=== PATIENT | female | born 1950 | race Caucasian/White ===

== ENCOUNTER 2016-11-11 05:42 | Outpatient (CLI) | payer MEDICARE, MEDICAID ==
[~2016-11-11] VITALS: Ht 162.6 cm; Wt 60.3 kg
[~2016-11-11 05:42] MED LIST: AC325T PO; ALBU17AE3 IH; ALDACTONE25 MG PO; AMLO10TA82 PO; ASP81TEC PO; BSC10SU PR; BUDE10.2 IH; BUDE6HFA IH; BUDE6HFA INH; FURO10VI IV; HEPA500016 SC; IPRA3AMP IH; IPRA3AMP19 IH; KCL10CCR PO; LORA1TAB IV; MAGN-47 PO; MENT3.5O TP; METF500T4 PO; METH40VI2 IV; MICO1POW2 MC; MICO45CR71 VG; MNTL10T PO; MONT10TA21 PO; MORP4CAR IV; MTP25TSR PO; MULT-305 PO; ONDA2VIA IV; ONDN4T PO; PNT40TEC PO; PRAV20TA3 PO; SPRN25T PO; SUCR1TAB PO; TIOT18CA2 IH; ZAFI20TA6 PO; [UNRECOGNIZED DRUG - CODE] IV; [UNRECOGNIZED DRUG - CODE] IV; [UNRECOGNIZED DRUG - OTHER] IH
== END 2016-11-11 11:30 ==
LOC: PREOP 05:42
PROVIDERS: ATTEND Surgery
DX: Z01.818 Encounter for other preprocedural examination (principal); R19.5 Other fecal abnormalities

== ENCOUNTER 2016-11-14 06:44 | Day surgery (SDC) | payer MEDICARE, MEDICAID ==
[~2016-11-14] VITALS: Ht 162.6 cm; Wt 60.3 kg
--- OUTSIDE RECORDS SUMMARY | 2016-11-14 06:49 | XMS REPORT ---
Author Author ELLEN DISLA Organization eClinicalWorks Address Unknown Phone Unavailable Care Team Providers Care Melter Assistant Name Role Phone ELLEN DISLA CP Unavailable Allergies No Known Allergies Problems Problem Type Condition Code Onset Dates Condition Status Problem Diaphragmatic hernia without mention of obstruction or gangrene 553.3 Active Problem Loss of weight 783.21 Active Problem Unspecified senile cataract 366.10 Active Problem CAD (coronary artery disease) I25.10 Active Problem DM w/o complication type II E11.9 Active Problem Other and unspecified hyperlipidemia E78.5 Active Problem Asthma 493.90 Active Problem Essential hypertension, benign 401.1 Active Problem Chronic airway obstruction, 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 Active Problem GERD (gastroesophageal reflux disease) 530.81 Active Medications No Known Medications Results No Known Results Summary Purpose eClinicalWorks Submission
--- OUTSIDE RECORDS SUMMARY | 2016-11-14 06:49 | XMS REPORT ---
Author Author ELLEN DISLA Organization eClinical[employer] Address Unknown Phone Unavailable Care Team Providers Care Building Operator Name Role Phone ELLEN DISLA CP Unavailable Allergies No Known Allergies Problems Problem Type Condition ICD-9 Code Onset Dates Condition Status Problem Diaphragmatic hernia without mention of obstruction or gangrene 553.3 Active Problem Unspecified senile cataract 366.10 Active Problem Chest pain, unspecified 786.50 Active Problem Pure hypercholesterolemia 272.0 Active Problem GERD (gastroesophageal reflux disease) 530.81 Active Problem Asthma 493.90 Active Problem Vertigo 780.4 Active Problem Essential hypertension, benign 401.1 Active Problem Loss of weight 783.21 Active Problem COPD (chronic obstructive pulmonary disease) 496 Active Problem Diabetes 250.00 Active Medications Medication Code System Code Instructions Start Date End Date Status Dosage Accolate [facility] [address]-51 20 MG Orally Twice a day Jan 30, 2015 1 tablet Metformin HCl [facility] [address]-35 500 MG Orally Twice a day October 19, 2014 1 tablet with meals Results No Known Results Summary Purpose eClinicalWorks Submission
--- OUTSIDE RECORDS SUMMARY | 2016-11-14 06:49 | XMS REPORT ---
Author Author ELLEN DISLA [facility] eClinicalWorks Address Unknown Phone Unavailable Care Team Providers Care Sausage Canner Name Role Phone ELLEN DISLA CP Unavailable Allergies, Adverse Reactions, Alerts Substance Reaction Event Type Bactrim hives Drug Allergy Problems Problem Type Condition Code Onset Dates Condition Status Problem Unspecified senile cataract 366.10 Active Problem Essential hypertension, benign 401.1 Active Problem Loss of weight 783.21 Active Problem Chronic airway obstruction, 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 Active Problem Vertigo 780.4 Active Problem DM w/o complication type II E11.9 Active Problem COPD (chronic obstructive pulmonary disease) 496 Active Problem Diabetes 250.00 Active Problem GERD (gastroesophageal reflux disease) 530.81 Active Problem Asthma 493.90 Active Assessment Bronchitis J40 Active Problem Pure hypercholesterolemia 272.0 Active Problem Diaphragmatic hernia without mention of obstruction or gangrene 553.3 Active Problem Chest pain, unspecified 786.50 Active Medications Medication Code System Code Instructions Start Date End Date Status Dosage OneTouch Ultra Test NDC 0 Test Strips 2 times a day DX: E11.9 October 10, 2014 as directed Benzonatate [facility] [address]-42 100 MG Orally Three times a day May 10, 2015 1 capsule as needed Albuterol Sulfate [facility] [address]-41 (2.5 MG/3ML) 0.083% Inhalation Three times a day 3 ml Spiriva HandiHaler [facility] [address]-41 18 MCG Inhalation Once a day 1 capsule Symbicort [facility] [address]-26 160-4.5 MCG/ACT Inhalation Twice a day 2 puffs PredniSONE [facility] [address]-58 10 MG Orally 2 per day May 10, 2015 May 15, 2015 1 tablet with food or milk Meclizine HCl [facility] [address]-41 25 MG Orally 3 times a day December 06, 2014 1 tablet as needed for dizziness Accolate [facility] [address]-41 20 MG Orally Twice a day Jan 30, 2015 1 tablet ProAir HFA [facility] [address]-39 108 (90 Base) MCG/ACT Inhalation every 4 hrs Jan 04, 2015 2 puffs as needed Zithromax Z-Apolinar [facility] [address]-09 250 MG Orally Once a day May 10, 2015 May 15, 2015 2 tab d 1 then 1 tab qd Metformin HCl [facility] [address]-43 500 MG Orally Twice a day October 19, 2014 1 tablet with meals Carafate [facility] [address]-21 1 GM Orally Twice a day 1 tablet on an empty stomach Aldactone [facility] [address]-37 25 MG Orally Twice a day 1 tablet Omeprazole [facility] [address]-45 40 MG Orally Once a day October 20, 2014 1 capsule Polyethylene Glycol [address] [facility] [address]-27 ... Orally Once a day Apr 10, 2015 dissolve 17 gm of powder in 8 oz H2O Procedures Procedure Coding System Code Date Office Visit, Est Pt., Level 3 CPT-4 98606 May 10, 2015 [facility] VISIT ESTABLISHED PATIENT CPT-4 G0467 May 10, 2015 Vital Signs Date/Time: May 10, 2015 Temperature 98.1 F Weight 142.6 lbs Height 66 in BMI 23.01 Index Blood Pressure Diastolic 70 mmHg Blood Pressure Systolic 114 mmHg Cardiac Monitoring Heart Rate 76 bpm Results No Known Results Summary Purpose eClinicalWorks Submission
--- OUTSIDE RECORDS SUMMARY | 2016-11-14 06:49 | XMS REPORT ---
Author Author ELLEN DISLA Organization eClinicalWorks Address Unknown Phone Unavailable Care Team Providers Care Enrollment Services Vice President Name Role Phone ELLEN DISLA CP Unavailable [...] Instructions Start Date End Date Status Dosage Spiriva HandiHaler [facility] [address]-82 18 MCG Inhalation Once a day 1 capsule Aldactone [facility] [address]-18 25 MG Orally Twice a day 1 tablet Metformin HCl [facility] [address]-82 500 MG Orally Twice a day October 19, 2014 1 tablet with meals Accolate [facility] [address]-45 20 MG Orally Twice a day Jan 30, 2015 1 tablet ProAir HFA [facility] [address]-25 108 (90 Base) MCG/ACT Inhalation every 4 hrs Jan 04, 2015 2 puffs as needed Omeprazole [facility] [address]-56 40 MG Orally Once a day October 20, 2014 1 capsule Meloxicam [facility] [address]-63 15 MG Orally Once a day May 23, 2015 1 tablet Results No Known Results Summary Purpose eClinicalWorks Submission
--- OUTSIDE RECORDS SUMMARY | 2016-11-14 06:49 | XMS REPORT ---
Author Author ELLEN DISLA [facility] eClinicalWorks Address Unknown Phone Unavailable Care Team Providers Care Senior Product Integrity Engineer Name Role Phone ELLEN DISLA CP Unavailable Allergies, Adverse Reactions, Alerts Substance Reaction Event Type Bactrim hives Drug Allergy Problems Problem Type Condition Code Onset Dates Condition Status Problem Essential hypertension, benign 401.1 Active Problem COPD (chronic obstructive pulmonary disease) 496 Active Problem Diabetes 250.00 Active Problem CAD (coronary artery disease) I25.10 Active Problem DM w/o complication type II E11.9 Active Problem Other and unspecified hyperlipidemia E78.5 Active Problem GERD (gastroesophageal reflux disease) 530.81 Active Problem Asthma 493.90 Active Problem Chronic airway obstruction, 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 Active Problem Vertigo 780.4 Active Assessment DM w/o complication type II E11.9 Active Problem Diaphragmatic hernia without mention of obstruction or gangrene 553.3 Active Problem Chest pain, unspecified 786.50 Active Assessment Chronic airway obstruction, 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 Active Problem Unspecified senile cataract 366.10 Active Problem Pure hypercholesterolemia 272.0 Active Problem Loss of weight 783.21 Active Medications Medication Code System Code Instructions Start Date End Date Status Dosage Benzonatate [facility] [address]-25 100 MG Orally Three times a day May 10, 2015 1 capsule as needed Accolate [facility] [address]-36 20 MG Orally Twice a day Jan 30, 2015 1 tablet Meloxicam [facility] [address]-66 15 MG Orally Once a day May 23, 2015 1 tablet Polyethylene Glycol 3350 [facility] [address]-18 ... Orally Once a day Apr 10, 2015 dissolve 17 gm of powder in 8 oz H2O Albuterol Sulfate [facility] [address]-73 (2.5 MG/3ML) 0.083% Inhalation Three times a day 3 ml Omeprazole [facility] [address]-64 40 MG Orally Once a day October 20, 2014 1 capsule Pravastatin Sodium [facility] [address]-29 20 MG Orally Once a day 1 tablet Spiriva HandiHaler [facility] [address]-29 18 MCG Inhalation Once a day August 1 capsule Symbicort [facility] [address]-00 160-4.5 MCG/ACT Inhalation Twice a day 2 puffs OneTouch Ultra Test ND 0 Test Strips 2 times a day DX: E11.9 October 10, 2014 as directed Meclizine HCl [facility] [address]-04 25 MG Orally 3 times a day December 06, 2014 1 tablet as needed for dizziness Metformin HCl [facility] [address]-19 1000 MG Orally Once a day August 23, 2015 1 tablet with am meal Aldactone [facility] [address]-45 25 MG Orally Twice a day 1 tablet Metformin HCl [facility] [address]-00 500 MG Orally Once a day October 19, 2014 1 1/2 tablets in pm Carafate [facility] [address]-24 1 GM Orally Twice a day 1 tablet on an empty stomach Ventolin HFA [facility] [address]-41 108 (90 Base) MCG/ACT Inhalation every 4 hrs May 23, 2015 2 puffs as needed Procedures Procedure Coding System Code Date Office Visit, Est Pt., Level 3 CPT-4 24558 August 23, 2015 [facility] VISIT ESTABLISHED PATIENT CPT-4 G0467 August 23, 2015 Vital Signs Date/Time: August 23, 2015 Temperature 97.0 F Weight 143.8 lbs Height 66 in BMI 23.21 Index Blood Pressure Diastolic 70 mmHg Blood Pressure Systolic 126 mmHg Cardiac Monitoring Heart Rate 81 bpm Results No Known Results Summary Purpose eClinicalWorks Submission
--- OUTSIDE RECORDS SUMMARY | 2016-11-14 06:49 | XMS REPORT ---
Author Author ELLEN DISLA Organization eClinicalWorks Address Unknown Phone Unavailable Care Team Providers Care Finger Cobbler Name Role Phone ELLEN DISLA CP Unavailable [...] 530.81 Active Problem Asthma 493.90 Active Problem Pure hypercholesterolemia 272.0 Active Problem Diaphragmatic hernia without mention of obstruction or gangrene 553.3 Active Problem Chest pain, unspecified 786.50 Active Medications Medication Code System Code Instructions Start Date End Date Status Dosage Polyethylene Glycol 3350 [facility] [address]-54 ... Orally Once a day Apr 10, 2015 dissolve 17 gm of powder in 8 oz H2O Results No Known Results Summary Purpose eClinicalWorks Submission
--- OUTSIDE RECORDS SUMMARY | 2016-11-14 06:50 | XMS REPORT ---
Author Author ELLEN DISLA Organization eClinicalWorks Address Unknown Phone Unavailable Care Team Providers Care Joint Filler Name Role Phone ELLEN DISLA CP Unavailable [...]
--- OUTSIDE RECORDS SUMMARY | 2016-11-14 06:50 | XMS REPORT ---
Author Author ELLEN DISLA [facility] eClinicalWorks Address Unknown Phone Unavailable Care Team Providers Care Regional Business Development Manager Name Role Phone ELLEN DISLA CP Unavailable [...] 530.81 Active Problem Asthma 493.90 Active Assessment Hematoma T14.8 Active Problem Pure hypercholesterolemia 272.0 Active Problem Diaphragmatic hernia without mention of obstruction or gangrene 553.3 Active Problem Chest pain, unspecified 786.50 Active Medications Medication Code System Code Instructions Start Date End Date Status Dosage Accolate [facility] [address]-07 20 MG Orally Twice a day Jan 30, 2015 1 tablet OneTouch Ultra Test NDC 0 Test Strips 2 times a day DX: E11.9 October 10, 2014 as directed Albuterol Sulfate [facility] [address]-18 (2.5 MG/3ML) 0.083% Inhalation Three times a day 3 ml Incruse Ellipta [facility] [address]-18 62.5 MCG/INH Inhalation Once a day May 1 puff Omeprazole [facility] [address]-35 40 MG Orally Once a day October 20, 2014 1 capsule Meclizine HCl [facility] [address]-98 25 MG Orally 3 times a day December 06, 2014 1 tablet as needed for dizziness Polyethylene Glycol 3350 [facility] [address]-25 ... Orally Once a day Apr 10, 2015 dissolve 17 gm of powder in 8 oz H2O Ventolin HFA [facility] [address]-59 108 (90 Base) MCG/ACT Inhalation every 4 hrs May 23, 2015 2 puffs as needed Meloxicam [facility] [address]-05 15 MG Orally Once a day May 23, 2015 1 tablet Benzonatate [facility] [address]-33 100 MG Orally Three times a day May 10, 2015 1 capsule as needed Carafate [facility] [address]-16 1 GM Orally Twice a day 1 tablet on an empty stomach Metformin HCl [facility] [address]-04 500 MG Orally Twice a day October 19, 2014 1 tablet with meals Aldactone [facility] [address]-15 25 MG Orally Twice a day 1 tablet Symbicort [facility] [address]-13 160-4.5 MCG/ACT Inhalation Twice a day 2 puffs Procedures Procedure Coding System Code Date Office Visit, Est Pt., Level 3 CPT-4 19528 May 25, 2015 [facility] VISIT ESTABLISHED PATIENT CPT-4 G0467 May 25, 2015 Vital Signs Date/Time: May 25, 2015 Temperature 98.2 F Weight 144.4 lbs Height 66 in BMI 23.30 Index Blood Pressure Diastolic 76 mmHg Blood Pressure Systolic 110 mmHg Cardiac Monitoring Heart Rate 86 bpm Results No Known Results Summary Purpose eClinicalWorks Submission
--- OUTSIDE RECORDS SUMMARY | 2016-11-14 06:50 | XMS REPORT ---
Author Author ELLEN DISLA Organization eClinicalWorks Address Unknown Phone Unavailable Care Team Providers Care Corsage Maker Name Role Phone ELLEN DISLA CP Unavailable [...] Date End Date Status Dosage Spiriva HandiHaler [facility] [address]-79 18 MCG Inhalation Once a day 1 capsule Results No Known Results Summary Purpose eClinicalWorks Submission
--- OUTSIDE RECORDS SUMMARY | 2016-11-14 06:50 | XMS REPORT ---
Author Author ELLEN DISLA Organization eClinicalWorks Address Unknown Phone Unavailable Care Team Providers Care Photography Editor Name Role Phone ELLEN DISLA CP Unavailable [...] DX: E11.9 October 10, 2014 as directed Results No Known Results Summary Purpose eClinicalWorks Submission
--- OUTSIDE RECORDS SUMMARY | 2016-11-14 06:50 | XMS REPORT ---
Author Author ELLEN DISLA Organization eClinicalWorks Address Unknown Phone Unavailable Care Team Providers Care Hims Clerk Name Role Phone ELLEN DISLA CP Unavailable Allergies No Known Allergies Problems Problem Type Condition Code Onset Dates Condition Status Problem Diaphragmatic hernia without mention of obstruction or gangrene 553.3 Active Problem Loss of weight 783.21 Active Problem Unspecified senile cataract 366.10 Active Assessment DM w/o complication type II E11.9 Active Problem CAD (coronary artery disease) I25.10 Active Problem DM w/o complication type II E11.9 Active Problem Other and unspecified hyperlipidemia E78.5 Active Problem Asthma 493.90 Active Problem Essential hypertension, benign 401.1 Active Problem Chronic airway obstruction, 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 Active Problem GERD (gastroesophageal reflux disease) 530.81 Active Medications Medication Code System Code Instructions Start Date End Date Status Dosage Metformin HCl [facility] [address]-97 500 MG Orally twice a day October 19, 2014 2 tabs in AM and 1 1/2 tablets in pm Results No Known Results Summary Purpose eClinicalWorks Submission
--- OUTSIDE RECORDS SUMMARY | 2016-11-14 06:50 | XMS REPORT ---
Author Author ELLEN DISLA Organization eClinicalWorks Address Unknown Phone Unavailable Care Team Providers Care Project Reservoir Engineer Name Role Phone ELLEN DISLA CP [...] 496 Active Problem Diabetes 250.00 Active Medications No Known Medications Results No Known Results Summary Purpose eClinicalWorks Submission
--- OUTSIDE RECORDS SUMMARY | 2016-11-14 06:50 | XMS REPORT ---
Author Author ELLEN DISLA Organization eClinicalWorks Address Unknown Phone Unavailable Care Team Providers Care Bobbin Presser Name Role Phone ELLEN DISLA CP Unavailable [...] Instructions Start Date End Date Status Dosage Omeprazole [facility] [address]-14 40 MG Orally Once a day October 20, 2014 1 capsule ProAir HFA [facility] [address]-62 108 (90 Base) MCG/ACT Inhalation every 4 hrs Jan 04, 2015 2 puffs as needed Aldactone [facility] [address]-21 25 MG Orally Twice a day 1 tablet Results No Known Results Summary Purpose eClinicalWorks Submission
--- OUTSIDE RECORDS SUMMARY | 2016-11-14 06:50 | XMS REPORT ---
Author Author ELLEN DISLA Organization eClinicalWorks Address Unknown Phone Unavailable Care Team Providers Care Ic Engineer Name Role Phone ELLEN DISLA CP [...] Instructions Start Date End Date Status Dosage ProAir HFA [facility] [address]-67 108 (90 Base) MCG/ACT Inhalation every 4 hrs Jan 04, 2015 2 puffs as needed Results No Known Results Summary Purpose eClinicalWorks Submission
--- OUTSIDE RECORDS SUMMARY | 2016-11-14 06:50 | XMS REPORT ---
Author Author ELLEN DISLA Organization eClinicalWorks Address Unknown Phone Unavailable Care Team Providers Care Seat Coverer Name Role Phone ELLEN DISLA CP Unavailable [...] Instructions Start Date End Date Status Dosage Meloxicam [facility] [address]-70 15 MG Orally Once a day October 18, 2014 1 tablet Results No Known Results Summary Purpose eClinicalWorks Submission
--- OUTSIDE RECORDS SUMMARY | 2016-11-14 06:50 | XMS REPORT ---
Author Author ELLEN DISLA [facility] eClinicalWorks Address Unknown Phone Unavailable Care Team Providers Care Personal Trainer Name Role Phone ELLEN DISLA CP Unavailable [...] 530.81 Active Problem Asthma 493.90 Active Assessment SOB (shortness of breath) R06.02 Active Problem Pure hypercholesterolemia 272.0 Active Problem Diaphragmatic hernia without mention of obstruction or gangrene 553.3 Active Problem Chest pain, unspecified 786.50 Active Medications Medication Code System Code Instructions Start Date End Date Status Dosage Meclizine HCl [facility] [address]-86 25 MG Orally 3 times a day December 06, 2014 1 tablet as needed for dizziness Aldactone [facility] [address]-68 25 MG Orally Twice a day [address] [facility] [address]-89 160-4.5 MCG/ACT Inhalation Twice a day 2 puffs [address] HFA [facility] [address]-05 108 (90 Base) MCG/ACT Inhalation every 4 hrs Jan 04, 2015 2 puffs as needed Omeprazole [facility] [address]-07 40 MG Orally Once a day October 20, [address] [facility] [address]-50 20 MG Orally Twice a day Jan 30, 2015 1 tablet Spiriva HandiHaler [facility] [address]-56 18 MCG Inhalation Once a day 1 capsule Albuterol Sulfate [facility] [address]-22 (2.5 MG/3ML) 0.083% Inhalation Three times a day [address] [facility] [address]-75 1 GM Orally Twice a day 1 tablet on an empty stomach Metformin HCl [facility] [address]-09 500 MG Orally Twice a day October 19, 2014 1 tablet with meals OneTouch Ultra Test ND 0 Test Strips 2 times a day October 10, 2014 as directed Procedures Procedure Coding System Code Date Office Visit, Est Pt., Level 3 CPT-4 09016 Mar 14, 2015 Vital Signs Date/Time: Mar 14, 2015 Temperature 98.1 F Weight 144.2 lbs Height 66 in BMI 23.27 Index Blood Pressure Diastolic 72 mmHg Blood Pressure Systolic 124 mmHg Cardiac Monitoring Heart Rate 92 bpm Results No Known Results Summary Purpose eClinicalWorks Submission
--- OUTSIDE RECORDS SUMMARY | 2016-11-14 06:51 | XMS REPORT ---
Author Author ELLEN DISLA [facility] eClinicalWorks Address Unknown Phone Unavailable Care Team Providers Care Perfect Bind Machine Operator Name Role Phone ELLEN DISLA CP [...] 530.81 Active Problem Asthma 493.90 Active Assessment Urinary tract infection, site not specified N39.0 Active Problem Pure hypercholesterolemia 272.0 Active Problem Diaphragmatic hernia without mention of obstruction or gangrene 553.3 Active Assessment Hematuria, unspecified R31.9 Active Problem Chest pain, unspecified 786.50 Active Medications Medication Code System Code Instructions Start Date End Date Status Dosage Aldactone [facility] [address]-82 25 MG Orally Twice a day 1 tablet Accolate [facility] [address]-99 20 MG Orally Twice a day Jan 30, 2015 1 tablet ProAir HFA [facility] [address]-14 108 (90 Base) MCG/ACT Inhalation every 4 hrs Jan 04, 2015 2 puffs as needed Carafate [facility] [address]-74 1 GM Orally Twice a day 1 tablet on an empty stomach Spiriva HandiHaler [facility] [address]-02 18 MCG Inhalation Once a day 1 capsule Meclizine HCl [facility] [address]-98 25 MG Orally 3 times a day December 06, 2014 1 tablet as needed for dizziness Albuterol Sulfate [facility] [address]-00 (2.5 MG/3ML) 0.083% Inhalation Three times a day 3 ml Metformin HCl [facility] [address]-42 500 MG Orally Twice a day October 19, 2014 1 tablet with meals OneTouch Ultra Test [facility] 0 Test Strips 2 times a day October 10, 2014 as directed Cipro [facility] [address]-82 500 MG Orally Twice a day Feb 27, 2015 Mar 04, 2015 1 tablet Symbicort [facility] [address]-88 160-4.5 MCG/ACT Inhalation Twice a day 2 puffs Omeprazole [facility] [address]-18 40 MG Orally Once a day October 20, 2014 1 capsule Procedures Procedure Coding System Code Date URINALYSIS, AUTO, W/O SCOPE CPT-4 79521 Feb 27, 2015 Office Visit, Est Pt., Level 3 CPT-4 34344 Feb 27, 2015 Vital Signs Date/Time: Feb 27, 2015 Temperature 96.4 F Weight 146.5 lbs Height 66 in BMI 23.64 Index Blood Pressure Diastolic 80 mmHg Blood Pressure Systolic 130 mmHg Cardiac Monitoring Heart Rate 99 bpm Results Name Result Date Reference Range Unit Abnormality Flag UA LONG DIP (IN HOUSE) Summary Purpose eClinicalWorks Submission
--- OUTSIDE RECORDS SUMMARY | 2016-11-14 06:51 | XMS REPORT ---
Author Author ELLEN DISLA Organization eClinicalWorks Address Unknown Phone Unavailable Care Team Providers Care Architectural Designer Name Role Phone ELLEN DISLA CP Unavailable [...]
--- OUTSIDE RECORDS SUMMARY | 2016-11-14 06:51 | XMS REPORT ---
Author Author ELLEN DISLA [facility] eClinicalWorks Address Unknown Phone Unavailable Care Team Providers Care Certified Medical Assistant Name Role Phone ELLEN DISLA CP [...] 530.81 Active Problem Asthma 493.90 Active Assessment DM w/o complication type II E11.9 Active Problem Pure hypercholesterolemia 272.0 Active Assessment Chronic airway obstruction, 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 Active Problem Diaphragmatic hernia without mention of obstruction or gangrene 553.3 Active Assessment Encounter for immunization Z23 Active Problem Chest pain, unspecified 786.50 Active Medications Medication Code System Code Instructions Start Date End Date Status Dosage Metformin HCl [facility] [address]-33 500 MG Orally Twice a day October 19, 2014 1 tablet with meals Aldactone [facility] [address]-91 25 MG Orally Twice a day 1 tablet Carafate [facility] [address]-92 1 GM Orally Twice a day 1 tablet on an empty stomach Omeprazole [facility] [address]-63 40 MG Orally Once a day October 20, 2014 1 capsule ProAir HFA [facility] [address]-70 108 (90 Base) MCG/ACT Inhalation every 4 hrs Jan 04, 2015 2 puffs as needed Spiriva HandiHaler [facility] [address]-12 18 MCG Inhalation Once a day 1 capsule Meclizine HCl [facility] [address]-30 25 MG Orally 3 times a day December 06, 2014 1 tablet as needed for dizziness Albuterol Sulfate [facility] [address]-88 (2.5 MG/3ML) 0.083% Inhalation Three times a day 3 ml OneTouch Ultra Test [facility] 0 Test Strips 2 times a day October 10, 2014 as directed Accolate [facility] [address]-69 20 MG Orally Twice a day Jan 30, 2015 1 tablet Symbicort [facility] [address]-83 160-4.5 MCG/ACT Inhalation Twice a day 2 puffs Procedures Procedure Coding System Code Date GLYCATED HEMOGLOBIN TEST CPT-4 44552 Feb 09, 2015 FLUARIX QUAD (3 & UP)-GSK-2014 CPT-4 17913 Feb 09, 2015 Office Visit, Est Pt., Level 3 CPT-4 33318 Feb 09, 2015 SINGLE IMMUNIZATION ADMIN CPT-4 12563 Feb 09, 2015 Vital Signs Date/Time: Feb 09, 2015 Temperature 97.4 F Weight 147.0 lbs Height 66 in BMI 23.72 Index Blood Pressure Diastolic 72 mmHg Blood Pressure Systolic 120 mmHg Cardiac Monitoring Heart Rate 75 bpm Results Name Result Date Reference Range Unit Abnormality Flag A1C (IN HOUSE) Immunizations Vaccine Administration Date FLUARIX QUAD (3 & UP)-GSK-2014Feb 09, 2015 Summary Purpose eClinicalWorks Submission
--- OUTSIDE RECORDS SUMMARY | 2016-11-14 06:51 | XMS REPORT ---
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 Role Phone ELLEN DISLA CP Unavailable Allergies No Known Allergies Problems Problem Type Condition Code Onset Dates Condition Status Problem Diaphragmatic hernia without mention of obstruction or gangrene 553.3 Active Problem Loss of weight 783.21 Active Problem Unspecified senile cataract 366.10 Active Assessment Chronic airway obstruction, 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 Active Problem CAD (coronary artery disease) I25.10 Active Problem DM w/o complication type II E11.9 Active Problem Other and unspecified hyperlipidemia E78.5 Active Problem Asthma 493.90 Active Problem Essential hypertension, benign 401.1 Active Problem Chronic airway obstruction, 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 Active Problem GERD (gastroesophageal reflux disease) 530.81 Active Medications Medication Code System Code Instructions Start Date End Date Status Dosage Metformin HCl [facility] [address]-11 500 MG Orally twice a day October 19, 2014 2 tabs in AM and 1 1/2 tablets in pm Results No Known Results Summary Purpose eClinicalWorks Submission
--- OUTSIDE RECORDS SUMMARY | 2016-11-14 06:51 | XMS REPORT ---
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
--- OUTSIDE RECORDS SUMMARY | 2016-11-14 06:52 | XMS REPORT | Continuity of Care Document ---
Author Author Formerly [facility] Address Unknown Phone Unavailable Allergies Active Description Code Type Severity Reaction Onset Reported/Identified Relationship to Patient Clinical Status Yes sulfADIAZINE Drug Allergy 10/18/2009 Yes sulfADIAZINE Drug Allergy N/A N/A 10/18/2009 Yes Sulfa (Sulfonamide Antibiotics) [id number] Drug Allergy Moderate N/A 07/28/2012 Medications Problems Date Dx Coded Attending Type Code Diagnosis Diagnosed By 08/16/2009 477.9 ALLERGIC RHINITIS, CAUSE UNSPECIFIED 08/16/2009 493.92 ASTHMA, UNSPECIFIED, WITH (ACUTE) EXACERBATION 08/16/2009 ELLEN DISLA APRN 477.9 ALLERGIC RHINITIS, CAUSE UNSPECIFIED 08/16/2009 ELLEN DISLA APRN 493.92 ASTHMA, UNSPECIFIED, WITH (ACUTE) EXACERBATION 08/16/2009 477.9 ALLERGIC RHINITIS, CAUSE UNSPECIFIED 08/16/2009 493.92 ASTHMA, UNSPECIFIED, WITH (ACUTE) EXACERBATION 08/16/2009 477.9 ALLERGIC RHINITIS, CAUSE UNSPECIFIED 08/16/2009 493.92 ASTHMA, UNSPECIFIED, WITH (ACUTE) EXACERBATION 08/16/2009 477.9 ALLERGIC RHINITIS, CAUSE UNSPECIFIED 08/16/2009 493.92 ASTHMA, UNSPECIFIED, WITH (ACUTE) EXACERBATION 08/16/2009 477.9 ALLERGIC RHINITIS, CAUSE UNSPECIFIED 08/16/2009 493.92 ASTHMA, UNSPECIFIED, WITH (ACUTE) EXACERBATION 08/16/2009 477.9 ALLERGIC RHINITIS, CAUSE UNSPECIFIED 08/16/2009 493.92 ASTHMA, UNSPECIFIED, WITH (ACUTE) EXACERBATION 08/16/2009 ELLEN DISLA APRN 477.9 ALLERGIC RHINITIS, CAUSE UNSPECIFIED 08/16/2009 ELLEN DISLA APRN 493.92 ASTHMA, UNSPECIFIED, WITH (ACUTE) EXACERBATION 08/16/2009 TOSHIA POPE DO 477.9 ALLERGIC RHINITIS, CAUSE UNSPECIFIED 08/16/2009 POPE DO, TOSHIA K 493.92 ASTHMA, UNSPECIFIED, WITH (ACUTE) EXACERBATION 08/16/2009 POPE DO, TSOHIA K 477.9 ALLERGIC RHINITIS, CAUSE UNSPECIFIED 08/16/2009 POPE DO, TOSHIA K 493.92 ASTHMA, UNSPECIFIED, WITH (ACUTE) EXACERBATION 08/16/2009 POPE DO, TOSHIA K 477.9 ALLERGIC RHINITIS, CAUSE UNSPECIFIED 08/16/2009 POPE DO, TOSHIA K 493.92 ASTHMA, UNSPECIFIED, WITH (ACUTE) EXACERBATION 08/16/2009 POPE DO, TOSHIA K 477.9 ALLERGIC RHINITIS, CAUSE UNSPECIFIED 08/16/2009 POPE DO, TOSHIA K 493.92 ASTHMA, UNSPECIFIED, WITH (ACUTE) EXACERBATION 08/16/2009 DISLA SHELTERED 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 DIRECTOR, ELLEN R 477.9 ALLERGIC RHINITIS, CAUSE UNSPECIFIED 08/16/2009 DISLA SHELTERED 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 DIRECTOR, ELLEN R 493.92 ASTHMA, UNSPECIFIED, WITH (ACUTE) EXACERBATION 08/16/2009 POPE DO, TOSHIA K 477.9 ALLERGIC RHINITIS, CAUSE UNSPECIFIED 08/16/2009 POPE DO, TOSHIA K 493.92 ASTHMA, UNSPECIFIED, WITH (ACUTE) EXACERBATION 08/16/2009 POPE DO, TOSHIA K 477.9 ALLERGIC RHINITIS, CAUSE UNSPECIFIED 08/16/2009 POPE DO, TOSHIA K 493.92 ASTHMA, UNSPECIFIED, WITH (ACUTE) EXACERBATION 08/16/2009 POPE DO, TOSHIA K 477.9 ALLERGIC RHINITIS, CAUSE UNSPECIFIED 08/16/2009 POPE DO, TOSHIA K 493.92 ASTHMA, UNSPECIFIED, WITH (ACUTE) EXACERBATION 08/16/2009 POPE DO, TOSHIA K 477.9 ALLERGIC RHINITIS, CAUSE UNSPECIFIED 08/16/2009 POPE DO, TOSHIA K 493.92 ASTHMA, UNSPECIFIED, WITH (ACUTE) EXACERBATION 08/16/2009 DISLA SHELTERED 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 DIRECTOR ELLEN R 477.9 ALLERGIC RHINITIS, CAUSE UNSPECIFIED 08/16/2009 DISLA SHELTERED 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 DIRECTOR, ELLEN R 493.92 ASTHMA, UNSPECIFIED, WITH (ACUTE) EXACERBATION 08/16/2009 DISLA SHELTERED 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 DIRECTOR, ELLEN R 477.9 ALLERGIC RHINITIS, CAUSE UNSPECIFIED 08/16/2009 DISLA SHELTERED 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 DIRECTOR ELLEN R 493.92 ASTHMA, UNSPECIFIED, WITH (ACUTE) EXACERBATION 08/16/2009 DISLA SHELTERED 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 DIRECTOR, ELLEN R 477.9 ALLERGIC RHINITIS, CAUSE UNSPECIFIED 08/16/2009 ELLEN DISLA APRN 493.92 ASTHMA, UNSPECIFIED, WITH (ACUTE) EXACERBATION 08/16/2009 TOSHIA POPE DO 477.9 ALLERGIC RHINITIS, CAUSE UNSPECIFIED 08/16/2009 TOSHIA POPE DO K 493.92 ASTHMA, UNSPECIFIED, WITH (ACUTE) EXACERBATION 10/18/2009 536.8 DYSPEPSIA AND OTHER SPECIFIED DISORDERS OF FUNCTION OF STOMACH 10/18/2009 ELLEN DISLA APRN 536.8 DYSPEPSIA AND OTHER SPECIFIED DISORDERS OF FUNCTION OF STOMACH 10/18/2009 536.8 DYSPEPSIA AND OTHER SPECIFIED DISORDERS OF FUNCTION OF STOMACH 10/18/2009 536.8 DYSPEPSIA AND OTHER SPECIFIED DISORDERS OF FUNCTION OF STOMACH 10/18/2009 536.8 DYSPEPSIA AND OTHER SPECIFIED DISORDERS OF FUNCTION OF STOMACH 10/18/2009 536.8 DYSPEPSIA AND OTHER SPECIFIED DISORDERS OF FUNCTION OF STOMACH 10/18/2009 536.8 DYSPEPSIA AND OTHER SPECIFIED DISORDERS OF FUNCTION OF STOMACH 10/18/2009 ELLEN DISLA APRN 536.8 DYSPEPSIA AND OTHER SPECIFIED DISORDERS OF FUNCTION OF STOMACH 10/18/2009 TOSHIA DOLESLEYA K 536.8 DYSPEPSIA AND OTHER SPECIFIED DISORDERS OF FUNCTION OF STOMACH 10/18/2009 TOSHIA DOLESLEYA K 536.8 DYSPEPSIA AND OTHER SPECIFIED DISORDERS OF FUNCTION OF STOMACH 10/18/2009 POPE DO TOSHIA K 536.8 DYSPEPSIA AND OTHER SPECIFIED DISORDERS OF FUNCTION OF STOMACH 10/18/2009 POPE DO TOSHIA K 536.8 DYSPEPSIA AND OTHER SPECIFIED DISORDERS OF FUNCTION OF STOMACH 10/18/2009 ELLEN DISLA APRN 536.8 DYSPEPSIA AND OTHER SPECIFIED DISORDERS OF FUNCTION OF STOMACH 10/18/2009 POPE DO TOSHIA K 536.8 DYSPEPSIA AND OTHER SPECIFIED DISORDERS OF FUNCTION OF STOMACH 10/18/2009 POPE DO TOSHIA K 536.8 DYSPEPSIA AND OTHER SPECIFIED DISORDERS OF FUNCTION OF STOMACH 10/18/2009 POPE DO TOSHIA K 536.8 DYSPEPSIA AND OTHER SPECIFIED DISORDERS OF FUNCTION OF STOMACH 10/18/2009 TOSHIA BLISS TOSHIA K 536.8 DYSPEPSIA AND OTHER SPECIFIED DISORDERS OF FUNCTION OF STOMACH 10/18/2009 ELLEN DISLA APRN 536.8 DYSPEPSIA AND OTHER SPECIFIED DISORDERS OF FUNCTION OF STOMACH 10/18/2009 ELLEN DISLA APRN 536.8 DYSPEPSIA AND OTHER SPECIFIED DISORDERS OF FUNCTION OF STOMACH 10/18/2009 ELLEN DISLA APRN 536.8 DYSPEPSIA AND OTHER SPECIFIED DISORDERS OF FUNCTION OF STOMACH 10/18/2009 POPE DOTOSHIA K 536.8 DYSPEPSIA AND OTHER SPECIFIED DISORDERS OF FUNCTION OF STOMACH 04/20/2010 530.81 GERD 04/20/2010 ELLEN DISLA APRN 530.81 GERD 04/20/2010 530.81 GERD 04/20/2010 530.81 GERD 04/20/2010 530.81 GERD 04/20/2010 530.81 GERD 04/20/2010 530.81 GERD 04/20/2010 ELLEN DISLA APRN 530.81 GERD 04/20/2010 POPE DO, TOSHIA K 530.81 GERD 04/20/2010 POPE DO, TOSHIA K 530.81 GERD 04/20/2010 POPE DO, TOSHIA K 530.81 GERD 04/20/2010 POPE DO, TOSHIA K 530.81 GERD 04/20/2010 ELLEN DISLA APRN 530.81 GERD 04/20/2010 POPE DO, TOSHIA K 530.81 GERD 04/20/2010 POPE DO, TOSHIA K 530.81 GERD 04/20/2010 POPE DO, TOSHIA K 530.81 GERD 04/20/2010 POPE DO, TOSHIA K 530.81 GERD 04/20/2010 ELLEN DISLA APRN 530.81 GERD 04/20/2010 ELLEN DISLA APRN 530.81 GERD 04/20/2010 ELLEN DISLA APRN 530.81 GERD 04/20/2010 POPE DO, TOSHIA K 530.81 GERD 09/05/2010 719.07 EDEMA FOOT 09/05/2010 ELLEN DISLA APRN 719.07 EDEMA FOOT 09/05/2010 719.07 EDEMA FOOT 09/05/2010 719.07 EDEMA FOOT 09/05/2010 719.07 EDEMA FOOT 09/05/2010 719.07 EDEMA FOOT 09/05/2010 719.07 EDEMA FOOT 09/05/2010 ELLEN DISAL APRN 719.07 EDEMA FOOT 09/05/2010 POPE DOTOSHIA K 719.07 EDEMA FOOT 09/05/2010 POPE DO, TOSHIA K 719.07 EDEMA FOOT 09/05/2010 POPE DO, TOSHIA K 719.07 EDEMA FOOT 09/05/2010 POPE DO, TOSHIA K 719.07 EDEMA FOOT 09/05/2010 DISLA ELLEN MICHELLE 719.07 EDEMA FOOT 09/05/2010 POPE DO, TOSHIA K 719.07 EDEMA FOOT 09/05/2010 POPE DO, TOSHIA K 719.07 EDEMA FOOT 09/05/2010 POPE DO, TOSHIA K 719.07 EDEMA FOOT 09/05/2010 POPE DO, TOSHIA K 719.07 EDEMA FOOT 09/05/2010 ELLEN DISLA APRN 719.07 EDEMA FOOT 09/05/2010 ELLEN DISLA APRN 719.07 EDEMA FOOT 09/05/2010 DISLA ELLEN MICHELLE 719.07 EDEMA FOOT 09/05/2010 POPE DO, TOSHIA K 719.07 EDEMA FOOT 02/04/2011 493.90 ASTHMA UNSPECIFIED 02/04/2011 786.07 WHEEZING 02/04/2011 786.2 COUGH 02/04/2011 787.01 NAUSEA WITH VOMITING 02/04/2011 ELLEN DISLA APRN 493.90 ASTHMA UNSPECIFIED 02/04/2011 ELLEN DISLA APRN 786.07 WHEEZING 02/04/2011 ELLEN DISLA APRN 786.2 COUGH 02/04/2011 ELLEN DISLA APRN 787.01 NAUSEA WITH VOMITING 02/04/2011 493.90 ASTHMA UNSPECIFIED 02/04/2011 786.07 WHEEZING 02/04/2011 786.2 COUGH 02/04/2011 787.01 NAUSEA WITH VOMITING 02/04/2011 493.90 ASTHMA UNSPECIFIED 02/04/2011 786.07 WHEEZING 02/04/2011 786.2 COUGH 02/04/2011 787.01 NAUSEA WITH VOMITING 02/04/2011 493.90 ASTHMA UNSPECIFIED 02/04/2011 786.07 WHEEZING 02/04/2011 786.2 COUGH 02/04/2011 787.01 NAUSEA WITH VOMITING 02/04/2011 493.90 ASTHMA UNSPECIFIED 02/04/2011 786.07 WHEEZING 02/04/2011 786.2 COUGH 02/04/2011 787.01 NAUSEA WITH VOMITING 02/04/2011 493.90 ASTHMA UNSPECIFIED 02/04/2011 786.07 WHEEZING 02/04/2011 786.2 COUGH 02/04/2011 787.01 NAUSEA WITH VOMITING 02/04/2011 DISLA SHELTERED 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 DIRECTOR, ELLEN R 493.90 ASTHMA UNSPECIFIED 02/04/2011 DISLA SHELTERED 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 DIRECTOR, ELLEN R 786.07 WHEEZING 02/04/2011 DISLA SHELTERED 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 DIRECTOR, ELLEN R 786.2 COUGH 02/04/2011 DISLA SHELTERED 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 DIRECTOR, ELLEN R 787.01 NAUSEA WITH VOMITING 02/04/2011 POPE DO, TOSHIA K 493.90 ASTHMA UNSPECIFIED 02/04/2011 POPE DO, TOSHIA K 786.07 WHEEZING 02/04/2011 POPE DO, TOSHIA K 786.2 COUGH 02/04/2011 POPE DO, TOSHIA K 787.01 NAUSEA WITH VOMITING 02/04/2011 POPE DO, TOSHIA K 493.90 ASTHMA UNSPECIFIED 02/04/2011 POPE DO, TOSHIA K 786.07 WHEEZING 02/04/2011 POPE DO, TOSHIA K 786.2 COUGH 02/04/2011 POPE DO, TOSHIA K 787.01 NAUSEA WITH VOMITING 02/04/2011 POPE DO, TOSHIA K 493.90 ASTHMA UNSPECIFIED 02/04/2011 POPE DO, TOSHIA K 786.07 WHEEZING 02/04/2011 POPE DO, TOSHIA K 786.2 COUGH 02/04/2011 POPE DO, TOSHIA K 787.01 NAUSEA WITH VOMITING 02/04/2011 POPE DO, TOSHIA K 493.90 ASTHMA UNSPECIFIED 02/04/2011 POPE DO, TOSHIA K 786.07 WHEEZING 02/04/2011 POPE DO, TOSHIA K 786.2 COUGH 02/04/2011 POPE DO, TOHSIA K 787.01 NAUSEA WITH VOMITING 02/04/2011 DISLA SHELTERED 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 DIRECTOR, ELLEN R 493.90 ASTHMA UNSPECIFIED 02/04/2011 DISLA SHELTERED 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 DIRECTOR, ELLEN R 786.07 WHEEZING 02/04/2011 DISLA SHELTERED 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 DIRECTOR, ELLEN Person 786.2 COUGH 02/04/2011 DISLA SHELTERED 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 DIRECTOR, ELLEN R 787.01 NAUSEA WITH VOMITING 02/04/2011 POPE DO, TOSHIA K 493.90 ASTHMA UNSPECIFIED 02/04/2011 POPE DO, TOSHIA K 786.07 WHEEZING 02/04/2011 POPE DO, TOSHIA K 786.2 COUGH 02/04/2011 POPE DO, TOSHIA K 787.01 NAUSEA WITH VOMITING 02/04/2011 POPE DO, TOSHIA K 493.90 ASTHMA UNSPECIFIED 02/04/2011 POPE DO, TOSHIA K 786.07 WHEEZING 02/04/2011 POPE DO, TOSHIA K 786.2 COUGH 02/04/2011 POPE DO, TOSHIA K 787.01 NAUSEA WITH VOMITING 02/04/2011 POPE DO, TOSHIA K 493.90 ASTHMA UNSPECIFIED 02/04/2011 POPE DO, TOSHIA K 786.07 WHEEZING 02/04/2011 POPE DO, TOSHIA K 786.2 COUGH 02/04/2011 POPE DO, TOSHIA K 787.01 NAUSEA WITH VOMITING 02/04/2011 POPE DO, TOSHIA K 493.90 ASTHMA UNSPECIFIED 02/04/2011 POPE DO, TOSHIA K 786.07 WHEEZING 02/04/2011 POPE DO, TOSHIA K 786.2 COUGH 02/04/2011 POPE DO, TOSHIA K 787.01 NAUSEA WITH VOMITING 02/04/2011 ELLEN DISLA APRN 493.90 ASTHMA UNSPECIFIED 02/04/2011 DISLA ELLEN MICHELLE R 786.07 WHEEZING 02/04/2011 DISLA SHELTERED 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 DIRECTOR, ELLEN R 786.2 COUGH 02/04/2011 DISLA SHELTERED 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 DIRECTOR, ELLEN R 787.01 NAUSEA WITH VOMITING 02/04/2011 DISLA ELLEN MICHELLE R 493.90 ASTHMA UNSPECIFIED 02/04/2011 DISLA SHELTERED 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 DIRECTOR, ELLEN R 786.07 WHEEZING 02/04/2011 DISLA SHELTERED 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 DIRECTOR, ELLEN R 786.2 COUGH 02/04/2011 DISLA SHELTERED 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 DIRECTOR, ELLEN R 787.01 NAUSEA WITH VOMITING 02/04/2011 DISLA ELLEN MICHELLE R 493.90 ASTHMA UNSPECIFIED 02/04/2011 DISLA SHELTERED 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 DIRECTOR, ELLEN R 786.07 WHEEZING 02/04/2011 DISLA SHELTERED 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 DIRECTOR, ELLEN R 786.2 COUGH 02/04/2011 DISLA SHELTERED 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 DIRECTOR, ELLEN R 787.01 NAUSEA WITH VOMITING 02/04/2011 POPE DO, TOSHIA K 493.90 ASTHMA UNSPECIFIED 02/04/2011 POPE DO, TOSHIA K 786.07 WHEEZING 02/04/2011 POPE DO, TOSHIA K 786.2 COUGH 02/04/2011 POPE DO, TOSHIA K 787.01 NAUSEA WITH VOMITING 05/02/2011 931 FOREIGN BODY IN EAR 05/02/2011 ELLEN DISLA APRN 931 FOREIGN BODY IN EAR 05/02/2011 931 FOREIGN BODY IN EAR 05/02/2011 931 FOREIGN BODY IN EAR 05/02/2011 931 FOREIGN BODY IN EAR 05/02/2011 931 FOREIGN BODY IN EAR 05/02/2011 931 FOREIGN BODY IN EAR 05/02/2011 ELLEN DISLA APRN R 931 FOREIGN BODY IN EAR 05/02/2011 POPE DO, TOSHIA K 931 FOREIGN BODY IN EAR 05/02/2011 POPE DO, TOSHIA K 931 FOREIGN BODY IN EAR 05/02/2011 POPE DO, TOSHIA K 931 FOREIGN BODY IN EAR 05/02/2011 POPE DO, TOSHIA K 931 FOREIGN BODY IN EAR 05/02/2011 ELLEN DISLA APRN R 931 FOREIGN BODY IN EAR 05/02/2011 POPE DO, TOSHIA K 931 FOREIGN BODY IN EAR 05/02/2011 POPE DO, TOSHIA K 931 FOREIGN BODY IN EAR 05/02/2011 POPE DO, TOSHIA K 931 FOREIGN BODY IN EAR 05/02/2011 POPE DO, TOSHIA K 931 FOREIGN BODY IN EAR 05/02/2011 ELLEN DISLA APRN R 931 FOREIGN BODY IN EAR 05/02/2011 ELLEN DISLA APRN R 931 FOREIGN BODY IN EAR 05/02/2011 ELLEN DISLA APRN R 931 FOREIGN BODY IN EAR 05/02/2011 POPE DO, TOSHIA K 931 FOREIGN BODY IN EAR 05/20/2011 599.0 URINARY TRACT INFECTION 05/20/2011 791.5 GLYCOSURIA 05/20/2011 ELLEN DISLA APRN 599.0 URINARY TRACT INFECTION 05/20/2011 ELLEN DISLA APRN 791.5 GLYCOSURIA 05/20/2011 599.0 URINARY TRACT INFECTION 05/20/2011 791.5 GLYCOSURIA 05/20/2011 599.0 URINARY TRACT INFECTION 05/20/2011 791.5 GLYCOSURIA 05/20/2011 599.0 URINARY TRACT INFECTION 05/20/2011 791.5 GLYCOSURIA 05/20/2011 599.0 URINARY TRACT INFECTION 05/20/2011 791.5 GLYCOSURIA 05/20/2011 599.0 URINARY TRACT INFECTION 05/20/2011 791.5 GLYCOSURIA 05/20/2011 ELLEN DISLA APRN 599.0 URINARY TRACT INFECTION 05/20/2011 DISLA ELLEN MICHELLE 791.5 GLYCOSURIA 05/20/2011 POPE DO, TOSHIA K 599.0 URINARY TRACT INFECTION 05/20/2011 POPE DO, TOSHIA K 791.5 GLYCOSURIA 05/20/2011 POPE DO, TOSHIA K 599.0 URINARY TRACT INFECTION 05/20/2011 POPE DO, TOSHIA K 791.5 GLYCOSURIA 05/20/2011 POPE DO, TOSHIA K 599.0 URINARY TRACT INFECTION 05/20/2011 POPE DO, TOSHIA K 791.5 GLYCOSURIA 05/20/2011 POPE DO, TOSHIA K 599.0 URINARY TRACT INFECTION 05/20/2011 POPE DO, TOSHIA K 791.5 GLYCOSURIA 05/20/2011 DISLA ELLEN MICHELLE R 599.0 URINARY TRACT INFECTION 05/20/2011 DISLA ELLEN MICHELLE R 791.5 GLYCOSURIA 05/20/2011 POPE DO, TOSHIA K 599.0 URINARY TRACT INFECTION 05/20/2011 POPE DO, TOSHIA K 791.5 GLYCOSURIA 05/20/2011 POPE DO, TOSHIA K 599.0 URINARY TRACT INFECTION 05/20/2011 POPE DO, TOSHIA K 791.5 GLYCOSURIA 05/20/2011 POPE DO, TOSHIA K 599.0 URINARY TRACT INFECTION 05/20/2011 POPE DO, TOSHIA K 791.5 GLYCOSURIA 05/20/2011 POPE DO, TOSHIA K 599.0 URINARY TRACT INFECTION 05/20/2011 POPE DO, TOSHIA K 791.5 GLYCOSURIA 05/20/2011 ELLEN DISLA APRN R 599.0 URINARY TRACT INFECTION 05/20/2011 ELLEN DISLA APRN 791.5 GLYCOSURIA 05/20/2011 DISLA ELLEN MICHELLE R 599.0 URINARY TRACT INFECTION 05/20/2011 DISLA ELLEN MICHELLE 791.5 GLYCOSURIA 05/20/2011 DISLA ELLEN MICHELLE R 599.0 URINARY TRACT INFECTION 05/20/2011 DISLA ELLEN MICHELLE 791.5 GLYCOSURIA 05/20/2011 POPE DO, TOSHIA K 599.0 URINARY TRACT INFECTION 05/20/2011 POPE DO, TOSHIA K 791.5 GLYCOSURIA 12/26/2011 682.5 CELLULITIS AND ABSCESS OF BUTTOCK 12/26/2011 ELLEN DISLA APRN 682.5 CELLULITIS AND ABSCESS OF BUTTOCK 12/26/2011 682.5 CELLULITIS AND ABSCESS OF BUTTOCK 12/26/2011 682.5 CELLULITIS AND ABSCESS OF BUTTOCK 12/26/2011 682.5 CELLULITIS AND ABSCESS OF BUTTOCK 12/26/2011 682.5 CELLULITIS AND ABSCESS OF BUTTOCK 12/26/2011 682.5 CELLULITIS AND ABSCESS OF BUTTOCK 12/26/2011 ELLEN DISLA APRN 682.5 CELLULITIS AND ABSCESS OF BUTTOCK 12/26/2011 POPE DOLESLEYA K 682.5 CELLULITIS AND ABSCESS OF BUTTOCK 12/26/2011 POPE DO, TOSHIA K 682.5 CELLULITIS AND ABSCESS OF BUTTOCK 12/26/2011 POPE DO, TOSHIA K 682.5 CELLULITIS AND ABSCESS OF BUTTOCK 12/26/2011 POPE DO TOSHIA K 682.5 CELLULITIS AND ABSCESS OF BUTTOCK 12/26/2011 ELLEN DISLA APRN R 682.5 CELLULITIS AND ABSCESS OF BUTTOCK 12/26/2011 POPE DO, TOSHIA K 682.5 CELLULITIS AND ABSCESS OF BUTTOCK 12/26/2011 POPE DO, TOSHIA K 682.5 CELLULITIS AND ABSCESS OF BUTTOCK 12/26/2011 POPE DO, TOSHIA K 682.5 CELLULITIS AND ABSCESS OF BUTTOCK 12/26/2011 POPE DO, TOSHIA K 682.5 CELLULITIS AND ABSCESS OF BUTTOCK 12/26/2011 ELLEN DISLA APRN 682.5 CELLULITIS AND ABSCESS OF BUTTOCK 12/26/2011 ELLEN DISLA APRN 682.5 CELLULITIS AND ABSCESS OF BUTTOCK 12/26/2011 ELLEN DISLA APRN 682.5 CELLULITIS AND ABSCESS OF BUTTOCK 12/26/2011 TOSHIA POPE DO K 682.5 CELLULITIS AND ABSCESS OF BUTTOCK 07/01/2012 ELLEN DISLA APRN 487.1 INFLUENZA 07/01/2012 487.1 INFLUENZA 07/01/2012 487.1 INFLUENZA 07/01/2012 487.1 INFLUENZA 07/01/2012 487.1 INFLUENZA 07/01/2012 487.1 INFLUENZA 07/01/2012 ELLEN DISLA APRN 487.1 INFLUENZA 07/01/2012 POPE DO, TOSHIA K 487.1 INFLUENZA 07/01/2012 POPE DO, TOSHIA K 487.1 INFLUENZA 07/01/2012 POPE DO, TOSHIA K 487.1 INFLUENZA 07/01/2012 POPE DO, TOSHIA K 487.1 INFLUENZA 07/01/2012 DISLAELLEN STORY APRN R 487.1 INFLUENZA 07/01/2012 POPE DO, TOSHIA K 487.1 INFLUENZA 07/01/2012 POPE DO, TOSHIA K 487.1 INFLUENZA 07/01/2012 POPE DO, TOSHIA K 487.1 INFLUENZA 07/01/2012 POPE DO, TOSHIA K 487.1 INFLUENZA 07/01/2012 ELLEN DISLA APRN 487.1 INFLUENZA 07/01/2012 ELLEN DISLA APRN 487.1 INFLUENZA 07/01/2012 ELLEN DISLA APRN 487.1 INFLUENZA 07/01/2012 POPE DO, TOSHIA K 487.1 INFLUENZA 08/14/2012 Ot 112.4 08/14/2012 Ot 275.2 08/14/2012 Ot 276.1 08/14/2012 Ot 276.8 08/14/2012 Ot 285.9 08/14/2012 Ot 300.00 08/14/2012 Ot 359.81 08/14/2012 Ot 401.9 08/14/2012 Ot 493.90 08/14/2012 Ot 584.5 08/14/2012 Ot 707.07 08/14/2012 Ot 707.20 08/14/2012 Ot 790.29 08/14/2012 Ot E932.0 08/14/2012 Ot V46.2 08/14/2012 Ot V57.1 08/14/2012 Ot V57.21 08/17/2012 ELLEN DISLA APRN 401.1 HYPERTENSION, BENIGN ESSENTIAL 08/17/2012 401.1 HYPERTENSION, BENIGN ESSENTIAL 08/17/2012 401.1 HYPERTENSION, BENIGN ESSENTIAL 08/17/2012 401.1 HYPERTENSION, BENIGN ESSENTIAL 08/17/2012 401.1 HYPERTENSION, BENIGN ESSENTIAL 08/17/2012 401.1 HYPERTENSION, BENIGN ESSENTIAL 08/17/2012 DISLA SHELTERED 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 DIRECTOR, ELLEN R 401.1 HYPERTENSION, BENIGN ESSENTIAL 08/17/2012 POPE DO, OTSHIA K 401.1 HYPERTENSION, BENIGN ESSENTIAL 08/17/2012 POPE DO, TOSHIA K 401.1 HYPERTENSION, BENIGN ESSENTIAL 08/17/2012 POPE DO, TOSHIA K 401.1 HYPERTENSION, BENIGN ESSENTIAL 08/17/2012 POPE DO, TOSHIA K 401.1 HYPERTENSION, BENIGN ESSENTIAL 08/17/2012 ELLEN DISLA APRN R 401.1 HYPERTENSION, BENIGN ESSENTIAL 08/17/2012 POPE DO, TOSHIA K 401.1 HYPERTENSION, BENIGN ESSENTIAL 08/17/2012 POPE DO, TOSHIA K 401.1 HYPERTENSION, BENIGN ESSENTIAL 08/17/2012 POPE DO, TOSHIA K 401.1 HYPERTENSION, BENIGN ESSENTIAL 08/17/2012 POPE DO, TOSHIA K 401.1 HYPERTENSION, BENIGN ESSENTIAL 08/17/2012 ELLEN DISLA APRN 401.1 HYPERTENSION, BENIGN ESSENTIAL 08/17/2012 ELLEN DISLA APRN 401.1 HYPERTENSION, BENIGN ESSENTIAL 08/17/2012 ELLEN DISLA APRN 401.1 HYPERTENSION, BENIGN ESSENTIAL 08/17/2012 POPE DO, TOSHIA K 401.1 HYPERTENSION, BENIGN ESSENTIAL 09/18/2012 783.21 WEIGHT LOSS 09/18/2012 783.21 WEIGHT LOSS 09/18/2012 783.21 WEIGHT LOSS 09/18/2012 783.21 WEIGHT LOSS 09/18/2012 783.21 WEIGHT LOSS 09/18/2012 ELLEN DISLA APRN 783.21 WEIGHT LOSS 09/18/2012 POPE DO, TOSHIA K 783.21 WEIGHT LOSS 09/18/2012 POPE DO, TOSHIA K 783.21 WEIGHT LOSS 09/18/2012 POPE DO, TOSHIA K 783.21 WEIGHT LOSS 09/18/2012 POPE DO, TOSHIA K 783.21 WEIGHT LOSS 09/18/2012 ELLEN DISLA APRN 783.21 WEIGHT LOSS 09/18/2012 POPE DO, TOSHIA K 783.21 WEIGHT LOSS 09/18/2012 POPE DO, TOSHIA K 783.21 WEIGHT LOSS 09/18/2012 POPE DO, TOSHIA K 783.21 WEIGHT LOSS 09/18/2012 POPE DO, TOSHIA K 783.21 WEIGHT LOSS 09/18/2012 ELLEN DISLA APRN 783.21 WEIGHT LOSS 09/18/2012 ELLEN DISLA APRN R 783.21 WEIGHT LOSS 09/18/2012 DISLA SHELTERED 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 DIRECTOR, ELLEN Person 783.21 WEIGHT LOSS 09/18/2012 POPE DO, TOSHIA K 783.21 WEIGHT LOSS 10/26/2012 786.05 SHORTNESS OF BREATH 10/26/2012 786.05 SHORTNESS OF BREATH 10/26/2012 786.05 SHORTNESS OF BREATH 10/26/2012 DISLA SHELTERED 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 DIRECTORELLEN Monteiro R 786.05 SHORTNESS OF BREATH 10/26/2012 POPE DO, TOSHIA K 786.05 SHORTNESS OF BREATH 10/26/2012 POPE DO, TOSHIA K 786.05 SHORTNESS OF BREATH 10/26/2012 POPE DO, TOSHIA K 786.05 SHORTNESS OF BREATH 10/26/2012 POPE DO, TOSHIA K 786.05 SHORTNESS OF BREATH 10/26/2012 DISLA SHELTERED 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 DIRECTORELLEN R 786.05 SHORTNESS OF BREATH 10/26/2012 POPE DO, TOSHIA K 786.05 SHORTNESS OF BREATH 10/26/2012 POPE DO, TOSHIA K 786.05 SHORTNESS OF BREATH 10/26/2012 POPE DO, TOSHIA K 786.05 SHORTNESS OF BREATH 10/26/2012 POPE DO, TOSHIA K 786.05 SHORTNESS OF BREATH 10/26/2012 DISLA SHELTERED 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 DIRECTORELLEN Monteiro 786.05 SHORTNESS OF BREATH 10/26/2012 DISLA SHELTERED 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 DIRECTORELLEN 786.05 SHORTNESS OF BREATH 10/26/2012 DISLA SHELTERED 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 DIRECTORELLEN 786.05 SHORTNESS OF BREATH 10/26/2012 POPE DO, TOSHIA K 786.05 SHORTNESS OF BREATH 01/20/2013 DISLA ELLEN MICHELLE 366.10 cataracts unspecified, right, left or both 01/20/2013 POPE DO, TOSHIA K 366.10 cataracts unspecified, right, left or both 01/20/2013 POPE DO, TOSHIA K 366.10 cataracts unspecified, right, left or both 01/20/2013 POPE DO, TOSHIA K 366.10 cataracts unspecified, right, left or both 01/20/2013 POPE DO, TOSHIA K 366.10 cataracts unspecified, right, left or both 01/20/2013 DISLA ELLEN MICHELLE 366.10 cataracts unspecified, right, left or both 01/20/2013 POPE DO, TOSHIA K 366.10 cataracts unspecified, right, left or both 01/20/2013 POPE DO, TOSHIA K 366.10 cataracts unspecified, right, left or both 01/20/2013 POPE DO, TOSHIA K 366.10 cataracts unspecified, right, left or both 01/20/2013 POPE DO, TOSHIA K 366.10 cataracts unspecified, right, left or both 01/20/2013 ELLEN DISLA APRN 366.10 cataracts unspecified, right, left or both 01/20/2013 DISLA ELLEN MICHELLE 366.10 cataracts unspecified, right, left or both 01/20/2013 DISLA ELLEN MICHELLE 366.10 cataracts unspecified, right, left or both 01/20/2013 POPE DO, TOSHIA K 366.10 cataracts unspecified, right, left or both 03/09/2013 MODE SCHILLING FACC, ALI FACP CCDS Ot 414.01 03/09/2013 MODE SCHILLING FACC, ALI FACP CCDS Ot 458.9 03/09/2013 MODE SCHILLING FACC, ALI FACP CCDS Ot 493.90 03/09/2013 MODE SCHILLING FACC, ALI FACP CCDS Ot 746.85 03/09/2013 MODE SCHILLING FACC, ALI FACP CCDS Ot 780.79 03/09/2013 MODE SCHILLING FACC, ALI FACP CCDS Ot 786.09 03/09/2013 MODE SCHILLING FACC, ALI FACP CCDS Ot 786.59 03/09/2013 MODE SCHILLING FACC, ALI FACP CCDS Ot V15.82 03/09/2013 MODE SCHILLING FACC, ALI FACP CCDS Ot V58.69 03/23/2013 POPE DO, TOSHIA K 786.50 CHEST PAIN 03/23/2013 POPE DO, TOSHIA K 786.50 CHEST PAIN 03/23/2013 POPE DO, TOSHIA K 786.50 CHEST PAIN 03/23/2013 ELLEN DISLA APRN 786.50 CHEST PAIN 03/23/2013 POPE DO, TOSHIA K 786.50 CHEST PAIN 03/23/2013 POPE DO, TOSHIA K 786.50 CHEST PAIN 03/23/2013 POPE DO, TOSHIA K 786.50 CHEST PAIN 03/23/2013 POPE DO, TOSHIA K 786.50 CHEST PAIN 03/23/2013 DISLA SHEL[employer]ED 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 DIRECTORELLEN Monteiro R 786.50 CHEST PAIN 03/23/2013 DISLA SHELTERED 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 DIRECTOR, ELLEN R 786.50 CHEST PAIN 03/23/2013 DISLA SHEL[employer]ED 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 DIRECTOR, ELLEN R 786.50 CHEST PAIN 03/23/2013 POPE DO, TOSHIA K 786.50 CHEST PAIN 04/05/2013 POPE DO, TOSHIA K 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 04/05/2013 POPE DO, TOSHIA K 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 04/05/2013 DISLA SHELTERED 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 DIRECTORELLEN R 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 04/05/2013 POPE DO, TOSHIA K 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 04/05/2013 POPE DO, TOSHIA K 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 04/05/2013 POPE DO, TOSHIA K 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 04/05/2013 POPE DO, TOSHIA K 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 04/05/2013 DISLA SHELTERED 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 DIRECTORELLEN R 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 04/05/2013 DISLA SHELTERED 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 DIRECTOR, ELLEN R 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 04/05/2013 DISLA SHELTERED 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 DIRECTOR, ELLEN R 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 04/05/2013 TOSHIA DO, TOSHIA K 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 07/08/2013 POPE DO, TOSHIA K 272.0 HYPERCHOLESTEROLEMIA 07/08/2013 POPE DO, TOSHIA K 272.0 HYPERCHOLESTEROLEMIA 07/08/2013 POPE DO, TOSHIA K 272.0 HYPERCHOLESTEROLEMIA 07/08/2013 POPE DO, TOSHIA K 272.0 HYPERCHOLESTEROLEMIA 07/08/2013 DISLA SHELTERED 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 DIRECTORELLEN Monteiro R 272.0 HYPERCHOLESTEROLEMIA 07/08/2013 DISLA ELLEN MICHELLE 272.0 HYPERCHOLESTEROLEMIA 07/08/2013 DISLA SHELTERED 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, ELLEN R 272.0 HYPERCHOLESTEROLEMIA 07/08/2013 POPE DO, TOSHIA K 272.0 HYPERCHOLESTEROLEMIA 06/08/2014 YAN LARIOS DO Ot 486 06/08/2014 YAN LARIOS DO Ot 525.9 06/08/2014 YAN LARIOS DO Ot 786.09 06/23/2014 RIC BLISSYAN M Ot 486 06/23/2014 RIC DO, YAN M Ot 525.9 06/23/2014 RIC DO, YAN M Ot 786.09 08/24/2014 POPE TOSHIA BLISS K 496 COPD 08/24/2014 POPE TOSHIA BLISS K 719.46 PAIN- KNEE 08/24/2014 POPE TOSHIA BLISS K 790.29 ABNORMAL GLUCOSE 01/17/2015 VIKI SAAVEDRA GRAIN MILL WORKER Ot 786.09 01/17/2015 ELLEN DISLA CFNP Ot 786.59 01/17/2015 RIC DO YAN M Ot 486 01/17/2015 RIC DO, YAN M Ot 525.9 01/17/2015 RIC DO, YAN M Ot 786.09 01/31/2015 VIKI SAAVEDRA GRAIN MILL WORKER Ot 786.09 01/31/2015 ELLEN DISLA CFNP Ot 786.59 01/31/2015 RIC DO YAN M Ot 486 01/31/2015 RIC DO, YAN M Ot 525.9 01/31/2015 RIC DO, YAN M Ot 786.09 01/31/2015 [place] DOERIC D Ot V72.84 01/31/2015 [place] DOERIC D Ot 211.3 01/31/2015 [place] DOERIC D Ot 553.3 01/31/2015 [place] DO, ERIC D Ot 787.91 01/31/2015 [facility] 792.1 02/23/2015 VIKI SAAVEDRA GRAIN MILL WORKER Ot 786.09 02/23/2015 ELLEN DISLA CFNP Ot 786.59 02/23/2015 RIC DO YAN M Ot 486 02/23/2015 RIC DO, YAN M Ot 525.9 02/23/2015 RIC DO, YAN M Ot 786.09 02/23/2015 [facility] Ot V72.84 03/15/2015 [facility] Ot K62.5 07/27/2015 MODE SCHILLING FACC, PAZ MCGARRY CCDS Ot E78.0 07/27/2015 MODE SCHILLING [facility] Ot I25.10 07/27/2015 MODE SCHILLING FACC, ALI FACP CCDS Ot I65.23 07/27/2015 MODE MD FACC, ALI FACP CCDS Ot J43.8 07/27/2015 MODE SCHILLING FACC, ALI FACP CCDS Ot E78.0 07/27/2015 MODE MD FACC, ALI FACP CCDS Ot I25.10 07/27/2015 MODE MD FACC, ALI FACP CCDS Ot I65.23 07/27/2015 MODE MD FACC, ALI FACP CCDS Ot J43.8 07/27/2015 MODE MD FACC, ALI FACP CCDS Ot R06.09 08/02/2015 MODE SCHILLING FACC, ALI FACP CCDS Ot E78.0 08/02/2015 MODE SCHILLING FACC, ALI FACP CCDS Ot I25.10 08/02/2015 MODE MD FACC, ALI FACP CCDS Ot I65.23 08/02/2015 MODE SCHILLING FAC, ALI FACP CCDS Ot J43.8 08/03/2015 MODE SCHILLING FAC, ALI FACP CCDS Ot E78.0 08/03/2015 MODE MD FAC, ALI FACP CCDS Ot I25.10 08/03/2015 MODE SCHILLING FAC, ALI FACP CCDS Ot I65.23 08/03/2015 MODE SCHILLING [facility], ALI FACP CCDS Ot J43.8 08/03/2015 MODE SCHILLING [facility], ALI FACP CCDS Ot R06.09 01/22/2016 YAN LARIOS DO Ot J44.9 CHRONIC OBSTRUCTIVE PULMONARY DISEASE, U 01/22/2016 YAN LARIOS DO Ot K44.9 DIAPHRAGMATIC HERNIA WITHOUT OBSTRUCTION 01/22/2016 YAN LARIOS DO Ot R06.09 OTHER FORMS OF DYSPNEA 02/12/2016 YAN LARIOS DO Ot J44.9 CHRONIC OBSTRUCTIVE PULMONARY DISEASE, U 02/12/2016 YAN LARIOS DO Ot K44.9 DIAPHRAGMATIC HERNIA WITHOUT OBSTRUCTION 02/12/2016 YAN LARIOS DO Ot R06.09 OTHER FORMS OF DYSPNEA 02/16/2016 YAN LARIOS DO Ot J44.9 CHRONIC OBSTRUCTIVE PULMONARY DISEASE, U 02/16/2016 YAN LARIOS DO Ot K44.9 DIAPHRAGMATIC HERNIA WITHOUT OBSTRUCTION 02/16/2016 YAN LARIOS DO Ot R06.09 OTHER FORMS OF DYSPNEA Procedures Code Description Performed By Performed On Prosper Deng 01/20/2013 95105 XRAY CHEST 2 VIEW 03/29/2013 72082 H PYLORI (IN-HOUSE) 04/05/2013 19660 ROUTINE VENIPUNCTURE 06/14/2013 [id number] GFR CALC (RESULT ONLY) 06/14/2013 73217 CMP 06/14/2013 49671 LIPID PANEL 06/14 94044 TSH 06/14/2013 01057 ROUTINE VENIPUNCTURE 07/30/2013 4230665 GFR CALC (RESULT ONLY) 07/30/2013 28836 CMP 07/30/2013 33435 LIPID PANEL 07/30 25930 A1C (IN-HOUSE) 06964 ROUTINE VENIPUNCTURE 01/12/2014 2209416 GFR CALC (RESULT ONLY) 01/12/2014 56696 CMP 01/12/2014 07044 LIPID PANEL 01/12 38693 ROUTINE VENIPUNCTURE 06/09/2014 [id number] GFR CALC (RESULT ONLY) 06/09/2014 77222 CMP 06/09/2014 79144 LIPID PANEL 06/09 32430 XRAY KNEE LEFT, 1 OR 2 VIEWS 08/24/2014 19949 A1C (IN-HOUSE) 80278 GLUCOSE FINGER STICK 08/24/2014 Results Encounters ACCT No. Visit Date/Time Discharge Status Pt. Type Provider Facility Loc./Unit Complaint [id number] 08/24/2014 08:24:00 08/24/2014 23: 59:59 [facility] Outpatient TOSHIA POPE DO [id number] 06/22/2014 08:38:00 06/22/2014 23: 59:59 [facility] Outpatient ELLEN DISLA APRN [id number] 01/12/2014 10:12:00 01/12/2014 23: 59:59 [facility] Outpatient ELLEN DISLA APRN [id number] 10/06/2013 08:17:00 10/06/2013 23: 59:59 CLS Outpatient ELLEN DISLA APRN [id number] 09/28/2013 10:25:00 09/28/2013 23: 59:59 [facility] Outpatient TOSHIA POPE DO [id number] 09/06/2013 13:55:00 09/06/2013 23: 59:59 CLS Outpatient POPE DOTOSHIA [id number] 07/30/2013 08:23:00 07/30/2013 23: 59:59 CLS Outpatient POPE DOTOSHIA [id number] 07/08/2013 12:47:00 07/08/2013 23: 59:59 CLS Outpatient POPE DOTOSHIA [id number] 06/14/2013 07:58:00 06/14/2013 23: 59:59 CLS Outpatient ELLEN DISLA APRN [id number] 06/07/2013 12:54:00 06/07/2013 23: 59:59 CLS Outpatient POPE DOTOSHIA [id number] 04/05/2013 16:56:00 04/05/2013 23: 59:59 CLS Outpatient POPE DOTOSHIA [id number] 03/23/2013 08:38:00 03/23/2013 23: 59:59 CLS Outpatient POPE DOTOSHIA Devaughn [id number] 03/01/2013 09:26:00 03/01/2013 23: 59:59 CLS Outpatient TOSHIA DOTOSHIA Devaughn [id number] 01/20/2013 14:35:00 01/20/2013 23: 59:59 [facility] Outpatient ELLEN DISLA APRN [id number] 08/17/2012 16:36:00 08/17/2012 23: 59:59 CLS Outpatient ELLEN DISLA APRN [id number] 12/30/2011 12:10:00 12/30/2011 23: 59:59 CLS Outpatient [id number] 11/19/2012 13:52:00 Document Registration [id number] 11/02/2012 17:33:00 Document Registration [id number] 10/26/2012 17:00:00 Document Registration [id number] 10/22/2012 16:09:00 Document Registration [id number] 09/18/2012 14:56:00 Document Registration
[2016-11-14] MEDS ORDERED: LACTATED RINGERS 1,000 ML IV STA (07:24)
[2016-11-14] MEDS ORDERED: proPOfol 200 MG/20 ML (DIPRIVAN) VIAL IV ONE (07:31)
[2016-11-14] MEDS ORDERED: MIDAZOLAM 2 MG/2 ML (VERSED) VIAL ONE (07:32)
[2016-11-14 07:40] VITALS: BP 116/77
--- NOTE | 2016-11-14 07:41 | Progress Note-Pre Operative ---
Pre-Operative Progress Note H&P Reviewed The H&P was reviewed, patient examined and no changes noted. Date Seen by Provider: Nov 14, 2016 Time Seen by Provider: 07:40 Date H&P Reviewed: Nov 14, 2016 Time H&P Reviewed: 07:41 Pre-Operative Diagnosis: occult postive stool ERIC GLORIA DO Nov 14, 2016 7:41 am
--- NOTE | 2016-11-14 08:59 | Progress Note-Post Operative ---
Post-Operative Progess Note Surgeon (s)/Sustainability Purchasing Agent (s) Surgeon ERIC GLORIA DO Sustainability Purchasing Agent: na Pre-Operative Diagnosis occult postive stool Post-Operative Diagnosis incomplete colonoscopy, hemorrhoids Procedure & Operative Findings Date of Procedure 11/14/16 Procedure Performed/Findings incomplete colonoscopy to hepatic flexure Anesthesia Type per inspector balance truing Estimated Blood Loss Estimated blood loss (mL): none Specimens/Packing Specimens Removed na ERIC GLORIA DO Nov 14, 2016 8:59 am
--- NOTE | 2016-11-14 09:01 | Discharge Inst-Simple/Standard ---
Discharge Inst-Standard Patient Instructions/Follow Up Plan of Care/Instructions/FU: Follow up with Dr. Andrade in 2 weeks Activity as Tolerated: Yes Discharge Diet: No Restrictions MANDI PAYNE APRN Nov 14, 2016 09:01
[2016-11-14 09:05] VITALS: BP 117/69
[2016-11-14] MEDS ORDERED: LACTATED RINGERS 1,000 ML IV SCH (09:15)
--- NOTE | 2016-11-14 09:48 | OPERATIVE REPORT ---
PROCEDURE PHYSICIAN: ERIC GLORIA DATE OF PROCEDURE: 11/14/2016 PREOPERATIVE DIAGNOSIS: Occult positive stool. POSTOPERATIVE DIAGNOSES: Incomplete colonoscopy and hemorrhoids. PROCEDURE: Incomplete colonoscopy to the hepatic flexure. ANESTHESIA: Per RIPRAP WORKER. ESTIMATED BLOOD LOSS: None. COMPLICATIONS: None. INDICATIONS: The patient is a 66-year-old female with occult positive stool. She had an incomplete colonoscopy in 2014. She had a little bit of abdominal discomfort and was seen by primary care provider and also was found to be Hemoccult-positive that time. The primary care provider sent her to [place] for repeat colonoscopy. The patient and family were discussed the risk and benefits of the procedure and wished to proceed with the procedure. Consent was signed on the chart. PROCEDURE: The patient was taken endoscopy suite, placed in left lateral recumbent position. Timeout was performed. Digital rectal exam was performed. There were no palpable polyps, masses, or ulcerations. There was some slight internal hemorrhoid disease. The scope was inserted in the rectum and then was continued to be advanced. The patient had a very redundant and floppy colon which the patient was repositioned multiple times trying to get the scope to advance. We made it all the way to approximately the hepatic flexure. At this point the scope was unable to be advanced any further. Multiple attempts at repositioning where again performed unable to get the scope to advance. At this time, it was determined to abort trying to continue to advance the scope and then decided to be slowly retract the scope. There were no polyps, masses, or ulcerations visualized within the transverse colon, descending colon, sigmoid colon and rectum. Once in the rectum, the scope was also retroflexed noting the hemorrhoidal disease. No other pathology was noted. The scope returned to its normal position and slowly withdrawn until completely removed. RECOMMENDATIONS: The patient will go for radiological study to further evaluate the remainder of the colon. We will have her follow-up in approximately 2 weeks to discuss results. If she has any problems prior to that, she should be reevaluated at that time. The patient will need repeat colonoscopy depending upon results of radiological studies. Job ID: [id number] Dictated Date: 11/14/2016 09:02:41 Fire Safety Inspector Date: 11/14/2016 09:41:33 / dasha
[2016-11-14 09:50] VITALS: BP 111/95
[2016-11-14 10:09] VITALS: BP 111/95
--- NOTE | 2016-11-14 11:14 | Diagnostic Imaging Report ---
PROCEDURE: CT abdomen and pelvis with rectal and without IV contrast. TECHNIQUE: Multiple contiguous axial images were obtained through the abdomen and pelvis with rectal and without the use of intravenous contrast. Prone and supine imaging were obtained. INDICATION: Constipation. Incomplete colonoscopy. FINDINGS: There is distention of the colon with contrast and air with unopacified fluid seen in the cecum which is projecting into the pelvis. There is no evidence of a colonic obstruction, stricture, or a mass. No significant filling defect to suggest a polyp. No significant diverticulosis is seen. There is a large hiatal hernia containing a rotated stomach representing a probably chronic volvulus without obstruction. The lung bases demonstrate emphysema changes. The liver, the gallbladder, the spleen, the pancreas, and adrenal glands appear unremarkable. The kidneys have no hydronephrosis. No urinary tract stones are seen. Multiple calcifications in the pelvis are likely phleboliths. There is a lobulated appearance of the uterus with exophytic lesions projecting into the left side of the pelvis likely related to fibroids. The abdominal aorta is normal in caliber. No para-aortic significantly enlarged lymph nodes seen. There is no significant free fluid or fluid collection in the abdomen or pelvis. Surgical clips in the pelvis are noted. The appendix is not seen. The osseous structures demonstrate mild scoliosis, and prominent degenerative changes at L5/S1 and SI joints. IMPRESSION: 1. There is no evidence of a colonic mass or sizable polyp. No obstruction. 2. Lobulated soft tissue lesions projecting from the uterus into the posterior left side of the pelvis are likely related to fibroids. Dictated by: Dictated on workstation # [id number]
== END 2016-11-14 10:08 | disposition home or self-care (01) ==
LOC: ENDO 06:44
PROVIDERS: ATTEND Surgery
DX: R19.5 Other fecal abnormalities (principal); K64.8 Other hemorrhoids; J45.909 Unspecified asthma, uncomplicated; I35.8 Other nonrheumatic aortic valve disorders; J44.9 Chronic obstructive pulmonary disease, unspecified; I25.759 Atherosclerosis of native coronary artery of transplanted heart with unspecified angina pectoris; E78.5 Hyperlipidemia, unspecified; E11.9 Type 2 diabetes mellitus without complications; K21.9 Gastro-esophageal reflux disease without esophagitis; Z79.84 Long term (current) use of oral hypoglycemic drugs; Z79.899 Other long term (current) drug therapy
CPT/HCPCS: 74176

== ENCOUNTER 2017-01-14 11:32 | Outpatient (CLI) | payer MEDICARE, MEDICAID ==
[~2017-01-14] VITALS: Ht 162.6 cm; Wt 58.5 kg
[2017-01-14] MEDS ORDERED: CETI10TA20 PO (11:50)
[2017-01-14] MEDS ORDERED: METF500T4 PO ×2 (11:50)
[2017-01-14] MEDS ORDERED: OMEP40CA36 PO (11:50)
[2017-01-14 11:53] VITALS: BP 121/81
[2017-01-14 12:14] LABS: BASOPHILS # (AUTO) 0.1 10^3/uL (0.0-0.1); BASOPHILS % (AUTO) 1 % (0-10); EOSINOPHILS # (AUTO) 0.1 10^3/uL (0.0-0.3); EOSINOPHILS % (AUTO) 3 % (0-10); LYMPHOCYTES # (AUTO) 1.9 X 10^3 (1.0-4.0); LYMPHOCYTES % (AUTO) 36 % (12-44); MEAN CORPUSCULAR HEMOGLOBIN 26 PG (25-34); MEAN CORPUSCULAR HGB CONC 32 G/DL (32-36); MEAN CORPUSCULAR VOLUME 82 FL (80-99); MEAN PLATELET VOLUME 10.4 FL (7.4-10.4); MONOCYTES # (AUTO) 0.5 X 10^3 (0.0-1.0); MONOCYTES % (AUTO) 9 % (0-12); NEUTROPHILS # (AUTO) 2.7 X 10^3 (1.8-7.8); NEUTROPHILS % (AUTO) 52 % (42-75); PLATELET COUNT 274 10^3/uL (130-400); RED BLOOD COUNT 4.19 10^6/uL (4.35-5.85); RED CELL DISTRIBUTION WIDTH 15.6 % (10.0-14.5); WHITE BLOOD COUNT 5.3 10^3/uL (4.3-11.0)
[2017-01-16] MEDS ORDERED: HYDR-3812 PO (11:22)
[2017-01-16] MEDS ORDERED: DOCU-143 PO (11:22)
== END 2017-01-14 13:26 | disposition home or self-care (01) ==
LOC: PREOP 11:32
PROVIDERS: ATTEND Surgery
DX: Z01.812 Encounter for preprocedural laboratory examination (principal); K42.9 Umbilical hernia without obstruction or gangrene
CPT/HCPCS: 36415; 85025; 87081

== ENCOUNTER 2017-01-16 08:53 | Day surgery (SDC) | payer MEDICARE, MEDICAID ==
[~2017-01-16] VITALS: Ht 162.6 cm; Wt 58.5 kg
[~2017-01-16 08:53] MED LIST changes: +CETI10TA20 PO; +OMEP40CA36 PO
[2017-01-16] MEDS: LACTATED RINGERS 1,000 ML IV PRN ×2 (08:55→10:43)
--- OUTSIDE RECORDS SUMMARY | 2017-01-16 08:57 | XMS REPORT ---
Author Author ELLEN DISLA [facility] Address [address] [place] [address] Care Team Providers Care Wafer Substrate Tester Name Role Phone ELLEN DISLA Unavailable PROBLEMS Type Condition ICD9-CM Code [id number] Code Onset Dates Condition Status SNOMED Code Problem Unspecified senile cataract 366.10 Active 21492239 Problem Essential hypertension, benign 401.1 Active 9911668 Problem Loss of weight 783.21 Active 763669012 Problem Diaphragmatic hernia without mention of obstruction or gangrene 553.3 Active 17939774 Problem Other and unspecified hyperlipidemia E78.5 Active 94442527 Problem CAD (coronary artery disease) I25.10 Active 48113243 Problem GERD (gastroesophageal reflux disease) 530.81 Active 035982042 Problem Asthma 493.90 Active 487818688 Problem DM w/o complication type II E11.9 Active 51480342 Problem Chronic airway obstruction, 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 Active 10811026 ALLERGIES Substance Reaction Event Type Date Status Bactrim hives Drug Allergy Apr, Active SOCIAL HISTORY No smoking Hx information available PLAN OF CARE Activity Details Follow Up 3 Weeks Reason:dm VITAL SIGNS Height 66 in 2016-05-07 Weight 133.4 lbs 2016-05-07 Temperature 96.8 degrees Fahrenheit 2016-05-07 Heart Rate 66 bpm 2016-05-07 Respiratory Rate 18 2016-05-07 BMI 21.53 kg/m2 2016-05-07 Blood pressure systolic 110 mmHg 2016-05-07 Blood pressure diastolic 72 mmHg 2016-05-07 MEDICATIONS Medication Instructions Dosage Frequency Start Date End Date Duration Status Pravastatin Sodium 20 MG Orally Once a day 1 tablet 24h Active Spiriva HandiHaler 18 MCG Inhalation Once a day 1 capsule 24h Active Meloxicam 15 MG Orally Once a day 1 tablet 24h Active Aspirin Adult Low Dose 81 MG Orally Once a day 1 tablet 24h Active Symbicort 160-4.5 MCG/ACT INHALE 2 PUFFS BY MOUTH TWICE DAILY.... Active Ventolin HFA 108 (90 Base) MCG/ACT INHALE 2 PUFFS EVERY 4 HOURS NEEDED... Active Cipro 500 MG Orally Twice a day 1 tablet 12h Apr, May, 07 days Active Albuterol Sulfate (2.5 MG/3ML) 0.083% Inhalation Three times a day 3 ml 8h Active Metformin HCl 500 MG Orally twice a day 2 tabs in AM and 1 1/2 tablets in pm 12h Oct, Active Aldactone 25 MG 1 tablet Twice a day Orally Active Prilosec 40 MG TAKE ONE (1) CAPSULE BY MOUTH ONCE DAILY... Active Meclizine HCl 25 MG Orally 3 times a day 1 tablet as needed for dizziness 8h Nov, Active Omeprazole 40 MG Orally Once a day 1 capsule 24h Oct, Active Accolate 20 MG TAKE ONE (1) TABLET BY MOUTH TWICE DAILY... Active OneTouch Ultra Test Test Strips as directed Oct, Active Mobic 15 MG TAKE ONE (1) TABLET BY MOUTH DAILY... Active RESULTS Name Result Date Reference Range UA LONG DIP (IN HOUSE) 2016-05-07 Lot # [id number] Exp date 03/2017 Clarity clear Color yellow Odor yes GLU neg SE neg KET neg SG 1.020 BLO 2+ pH 7.0 Protein 1+ URO 1.0 NIT neg GABRIELLA 3+ Lot # Exp date CULTURE, URINE 2016-05-07 Urine Culture, Routine Final report Result 1 PROCEDURES Procedure Date Ordered Related Diagnosis Body Site REPLACED BY [facility] VISIT ESTABLISHED PATIENT May 07, 2016 Office Visit, Est Pt., Level 3 May 07, 2016 URINALYSIS, AUTO, W/O SCOPE May 07, 2016 LAB NOT BILLED BY [facility] May 07, 2016 IMMUNIZATIONS No Known Immunizations
--- OUTSIDE RECORDS SUMMARY | 2017-01-16 08:58 | XMS REPORT ---
Author Author ELLEN DISLA [facility] Address [address] [place] [address] Care Team Providers Care Systems Project Manager Name Role Phone ELLEN DISLA Unavailable PROBLEMS Type Condition ICD9-CM Code NAE39-LE Code Onset Dates Condition Status SNOMED Code Problem Diaphragmatic hernia without mention of obstruction or gangrene 553.3 Active 66827818 Problem Unspecified senile cataract 366.10 Active 64184834 Problem Essential hypertension, benign 401.1 Active 0306355 Problem Loss of weight 783.21 Active 067850375 Problem Other and unspecified hyperlipidemia E78.5 Active 79435085 Problem CAD (coronary artery disease) I25.10 Active 47877051 Problem GERD (gastroesophageal reflux disease) 530.81 Active 488614633 Problem Asthma 493.90 Active 840402947 Problem Chronic airway obstruction, 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 Active 65740194 Problem DM w/o complication type II E11.9 Active 18868741 ALLERGIES Substance Reaction Event Type Date Status Bactrim hives Drug Allergy May, Active SOCIAL HISTORY No smoking Hx information available PLAN OF CARE Activity Details Follow Up 3 Months Reason:dm VITAL SIGNS Height 66 in 2016-05-27 Weight 134.8 lbs 2016-05-27 Temperature 96.9 degrees Fahrenheit 2016-05-27 Heart Rate 80 bpm 2016-05-27 Respiratory Rate 16 2016-05-27 BMI 21.75 kg/m2 2016-05-27 Blood pressure systolic 120 mmHg 2016-05-27 Blood pressure diastolic 60 mmHg 2016-05-27 MEDICATIONS Medication Instructions Dosage Frequency Start Date End Date Duration Status Symbicort 160-4.5 MCG/ACT INHALE 2 PUFFS BY MOUTH TWICE DAILY.... Active Albuterol Sulfate (2.5 MG/3ML) 0.083% Inhalation Three times a day 3 ml 8h Active Pravastatin Sodium 20 MG Orally Once a day 1 tablet 24h Active Omeprazole 40 MG Orally Once a day 1 capsule 24h Oct, Active Meclizine HCl 25 MG Orally 3 times a day 1 tablet as needed for dizziness 8h Nov, Active Mobic 15 MG TAKE ONE (1) TABLET BY MOUTH DAILY... Active Aldactone 25 MG 1 tablet Twice a day Orally Active OneTouch Ultra Test Test Strips as directed Oct, Active Aspirin Adult Low Dose 81 MG Orally Once a day 1 tablet 24h Active Meloxicam 15 MG Orally Once a day 1 tablet 24h Active Ventolin HFA 108 (90 Base) MCG/ACT INHALE 2 PUFFS EVERY 4 HOURS NEEDED... Active Metformin HCl 500 MG Orally twice a day 2 tabs in AM and 1 1/2 tablets in pm 12h Active Prilosec 40 MG TAKE ONE (1) CAPSULE BY MOUTH ONCE DAILY... Active Accolate 20 MG TAKE ONE (1) TABLET BY MOUTH TWICE DAILY... Active Spiriva HandiHaler 18 MCG Inhalation Once a day 1 capsule 24h Active RESULTS No Results PROCEDURES Procedure Date Ordered Related Diagnosis Body Site [facility] VISIT ESTABLISHED PATIENT May 27, 2016 Office Visit, Est Pt., Level 3 May 27, 2016 GLYCATED HEMOGLOBIN TEST May 27, 2016 IMMUNIZATIONS No Known Immunizations
[2017-01-16 09:00] VITALS: BP 130/75
[2017-01-16] MEDS ORDERED: ceFAZolin 1,000 MG (ANCEF) VIAL ONE (09:17)
[2017-01-16] MEDS ORDERED: NS (IVPB) 50 ML ONE (09:17)
[2017-01-16] MEDS ORDERED: BUPIVACAINE 0.5% 30 ML (SENSORCAINE) VIAL ONE (09:31)
[2017-01-16] MEDS ORDERED: LIDOCAINE 1% INJ 20 ML (XYLOCAINE) VIAL ONE (09:31)
[2017-01-16] MEDS ORDERED: CATHETER FLUSH 10 ML SYR IV PRN (09:45)
[2017-01-16] MEDS ORDERED: ceFAZolin 1 GM/NS 50 ML IVPB IV ONE ×2 (09:45)
[2017-01-16] MEDS ORDERED: MIDAZOLAM 2 MG/2 ML (VERSED) VIAL ONE (09:59)
[2017-01-16] MEDS ORDERED: fentaNYL INJECTION 100 MCG/2 ML AMP ONE (09:59)
[2017-01-16] MEDS ORDERED: RT-ALBUTEROL SULF 2.5 MG/3 ML PRE-MIX VIAL INH ONE (10:00)
--- NOTE | 2017-01-16 10:05 | Progress Note-Pre Operative ---
Pre-Operative Progress Note H&P Reviewed The H&P was reviewed, patient examined and no changes noted. Date Seen by Provider: Jan 16, 2017 Time Seen by Provider: 10:05 Date H&P Reviewed: Jan 16, 2017 Time H&P Reviewed: 10:05 Pre-Operative Diagnosis: umbilical/incisional hernia ERIC GLORIA DO Jan 16, 2017 10:05
[2017-01-16] MEDS ORDERED: PHENYLEPHRINE 100 MCG/ML 10 ML (ANESTHESIA) SYR ONE (10:20)
[2017-01-16] MEDS ORDERED: LACTATED RINGERS 1,000 ML IV ONE (11:19)
[2017-01-16] MEDS ORDERED: GLYCOPYRROLATE 0.2 MG/ML (ROBINUL) 2 ML VIAL ONE (11:19)
[2017-01-16] MEDS ORDERED: proPOfol 200 MG/20 ML (DIPRIVAN) VIAL IV ONE (11:19)
[2017-01-16] MEDS ORDERED: ONDANSETRON 4 MG/2 ML (SDV) Z0FRAN ONE (11:19)
[2017-01-16] MEDS ORDERED: ROCURONIUM 50 MG/5 ML (ZEMURON) VIAL IV ONE (11:19)
[2017-01-16] MEDS ORDERED: LIDOCAINE PF 2% 5 ML (XYLOCAINE) VIAL ONE (11:19)
[2017-01-16] MEDS ORDERED: NEOSTIGMINE (BLOXIVERZ ) 1 MG/1ML 10 ML VIAL ONE (11:19)
--- NOTE | 2017-01-16 11:21 | Progress Note-Post Operative ---
Post-Operative Progess Note Surgeon (s)/Portfolio Management Marketing (s) Surgeon ERIC GLORIA DO Portfolio Management Marketing: na Pre-Operative Diagnosis umbilical/incisional hernia Post-Operative Diagnosis same Procedure & Operative Findings Date of Procedure 01/16/17 Procedure Performed/Findings lap umbilical hernia repair Anesthesia Type gen Estimated Blood Loss Estimated blood loss (mL): minimal Specimens/Packing Specimens Removed na ERIC GLORIA DO Jan 16, 2017 11:21
[2017-01-16] MEDS ORDERED: HYDR-3812 PO (11:22)
[2017-01-16] MEDS ORDERED: DOCU-143 PO (11:22)
[2017-01-16] MEDS ORDERED: HYDROcodone/APAP 5 MG/325 MG (LORTAB) TAB PO PRN (11:30)
--- NOTE | 2017-01-16 11:30 | Discharge Inst-Simple/Standard ---
Discharge Inst-Standard Discharge Medications New, Converted or Re-Newed RX: RX on Chart Patient Instructions/Follow Up Plan of Care/Instructions/FU: 2 weeks tyler Activity as Tolerated: No Discharge Diet: Regular Diet Other Inst to Patient Follow up Appt: Make appointment for 2 week. Instructions: No lifting greater than 10 pounds. No strenuous activity. May shower in 24 hours, no tub bath or soaking. Use incentive spirometer at home as directed. No Smoking Skin/Wound Care: May remove bandages in 48 hours. You have Dermabond over incision it will fall off on its own. Symptoms to Report: Appetite Changes, Extremity Discoloration, Numbness/Tingling, Swelling Increased , Bleeding Excessive, Eyesight Changes, Pain Increased, Urine Color Change, Constipation(Persistent), Fever over 101 degree F, Pain/Pressure in chest, Urinating Difficulty, Cough Up/Vomit Blood, Heart Beat Irreg/Pounding, Pain/ Pressure in jaw, Vaginal Bleeding Increase, Cramps in feet or legs, Lightheadedness, Pain/Pressure in shoulder, Diarrhea(Persistent), Memory Changes Suddenly, Questions/Concerns, Weight gain consecutive days, Dizziness/ Fainting, Nausea/Vomiting, Shortness of Breath, Weight gain over 2 pounds If questions or concerns contact your physician Or seek help at emergency department. ERIC GLORIA DO Jan 16, 2017 11:30
--- NOTE | 2017-01-16 11:32 | Discharge Inst-Simple/Standard ---
Discharge Inst-Standard Discharge Medications New, Converted or Re-Newed RX: RX on Chart Patient Instructions/Follow Up Plan of Care/Instructions/FU: 2 weeks Lupe Activity as Tolerated: No Discharge Diet: Regular Diet Other Inst to Patient Follow up Appt: Make appointment for 2 week. Instructions: No lifting greater than 10 pounds. No strenuous activity. May shower in 24 hours, no tub bath or soaking. Use incentive spirometer at home as directed. No Smoking Skin/Wound Care: May remove bandages in 48 hours. You have Dermabond over incisions they will fall off on its own. Symptoms to Report: Appetite Changes, Extremity Discoloration, Numbness/Tingling, Swelling Increased , Bleeding Excessive, Eyesight Changes, Pain Increased, Urine Color Change, Constipation(Persistent), Fever over 101 degree F, Pain/Pressure in chest, Urinating Difficulty, Cough Up/Vomit Blood, Heart Beat Irreg/Pounding, Pain/ Pressure in jaw, Vaginal Bleeding Increase, Cramps in feet or legs, Lightheadedness, Pain/Pressure in shoulder, Diarrhea(Persistent), Memory Changes Suddenly, Questions/Concerns, Weight gain consecutive days, Dizziness/ Fainting, Nausea/Vomiting, Shortness of Breath, Weight gain over 2 pounds If questions or concerns contact your physician Or seek help at emergency department. ERIC GLORIA DO Jan 16, 2017 11:32
[2017-01-16] MEDS ORDERED: SEVOFLURANE (ULTANE) 15 ML INHAL SOLN ONE (11:42)
[2017-01-16] MEDS ORDERED: ONDANSETRON 4 MG/2 ML (SDV) Z0FRAN IVP PRN (11:45)
[2017-01-16] MEDS ORDERED: morphine INJ 10 MG/ML 1ML (SYR OR VIAL) ONE (11:48)
[2017-01-16] MEDS: morphine INJ 10 MG/ML 1ML (SYR OR VIAL) IVP PRN ×2 (11:55→12:00)
--- NOTE | 2017-01-16 12:09 | OPERATIVE REPORT ---
DATE OF SERVICE: 01/16/2017 PREOPERATIVE DIAGNOSIS: Umbilical/incisional hernia. POSTOPERATIVE DIAGNOSIS: Umbilical/incisional hernia. PROCEDURE: Laparoscopic umbilical incisional hernia repair with 4.5 inch Echo mesh. SURGEON: Eric Andrade DO. ANESTHESIA: General. ESTIMATED BLOOD LOSS: Minimal. COMPLICATIONS: None. INDICATIONS: The patient is a 66-year-old female with an umbilical incisional hernia that has been causing some patient discomfort. She understands risks and benefits of procedure and wished to proceed with procedure. Consent was signed in the chart. PROCEDURE: The patient was taken to the operating suite. She was prepped and draped in sterile fashion. Surgical pause was performed. A 5 mm incision was made in the left upper quadrant. Veress needle was inserted in the abdomen and pneumoperitoneum was achieved. Under direct visualization of the laparoscope, a 5 mm trocar was then placed. Under direct visualization of the laparoscope a 12 mm trocar was placed in the left lower quadrant, and a 5 mm trocar was placed in the right lower quadrant. The falciform ligament was up through the defect. Harmonic was used to take down the falciform ligament and reduce the fat contents of the hernia. Once adequate dissection was performed, a stab incision was made at the umbilicus and the defect was closed using an 0 Vicryl. The 4.5 inch mesh was then inserted into the abdomen and grasped through the stab incision. The balloon was insufflated. A secure Tacker was used to make an outer crown securing the mesh in place. The balloon was removed. The inner crown was then made with a secure Tacker. The patient had adequate coverage and good adherence. The 12 mm trocar was then removed. The fascial defect was then closed with an 0 Vicryl with a Hussein-Arnie. The abdomen was then desufflated, and the trocars were removed. The skin was then closed using 4-0 Vicryl in a subcuticular fashion. The abdomen was then washed and dried and Dermabond was placed over incisions. Sterile bandages were applied. The patient tolerated the procedure well without any complications. She was taken to recovery room in stable condition. Job ID: [id number] DocumentID: [id number] Dictated Date: 01/16/2017 11:36:04 Sql Ssrs Ssis Developer Date: 01/16/2017 12:08:56 Dictated By: ERIC ANDRADE DO
[2017-01-16 12:40] VITALS: BP 123/63
[2017-01-16 13:10] VITALS: BP 134/79
[2017-01-16 13:40] VITALS: BP 136/82
[2017-01-16 14:50] VITALS: BP 136/82
== END 2017-01-16 14:55 | disposition home or self-care (01) ==
LOC: SDC 08:53
PROVIDERS: ATTEND Surgery
DX: K43.2 Incisional hernia without obstruction or gangrene (principal); J45.909 Unspecified asthma, uncomplicated; E78.5 Hyperlipidemia, unspecified; I25.10 Atherosclerotic heart disease of native coronary artery without angina pectoris; Z87.891 Personal history of nicotine dependence; J44.9 Chronic obstructive pulmonary disease, unspecified; I35.8 Other nonrheumatic aortic valve disorders; E11.9 Type 2 diabetes mellitus without complications; Z79.899 Other long term (current) drug therapy
CPT/HCPCS: 82962; 94640

== ENCOUNTER → 2017-05-20 | Outpatient (CLI) | payer MEDICARE, MEDICAID ==
[~2017-05-20] MED LIST changes: +ACHD5005 PO; +CATHETER FLUSH 10 ML SYR IV PRN; +DOCU-143 PO; +REGADENOSON 0.4 MG/5 ML SYR (LEXISCAN) IV ONE
[2017-05-20 08:55] VITALS: BP 124/73
[2017-05-20 09:02] VITALS: BP 125/63
--- NOTE | 2017-05-21 00:20 | STRESS TEST ---
DATE OF SERVICE: 05/20/2017 RESTING AND POST REGADENOSON TECHNETIUM-99M TETROFOSMIN SPECT CT IMAGING ORDERING PHYSICIAN: Vanesa Orantes MD, PABLO, FACDelia, FACC PRIMARY PHYSICIAN: SANDRO Villafana CLINICAL DIAGNOSIS: Chest discomfort. Baseline images were carried out after injection of 10.64 mCi technetium-99m tetrofosmin. This was followed by 0.4 mg regadenoson and 31.8 mCi technetium-99m tetrofosmin for stress imaging. The electrocardiogram showed sinus rhythm with nonspecific ST and T-wave abnormality and it did not change significantly with the regadenoson infusion. Occasional isolated premature ventricular contractions were seen. The patient tolerated the procedure well. Review of images at rest and following stress does not indicate significant perfusion defects consistent with any significant myocardial ischemia or infarction. Gated images show normal global left ventricular systolic function with an ejection fraction of 67%. Left ventricular end diastolic volume is 41 mL. TID is absent (0.96). CONCLUSIONS: 1. No evidence of significant myocardial ischemia or infarction on this study. 2. Normal regional wall motion. 3. Normal global left ventricular systolic function with a calculated ejection fraction of 67%. 4. Normal left ventricular cavity size. Job ID: [id number] DocumentID: [id number] Dictated Date: 05/20/2017 14:09:19 Hull Sorter Date: 05/20/2017 20:38:09 Dictated By: VANESA ORANTES MD, PABLO, FACP, FACC,
== END ==
LOC: CARD 07:04
PROVIDERS: ATTEND Internal Medicine Cardiovascular Disease
DX: I25.10 Atherosclerotic heart disease of native coronary artery without angina pectoris (principal); I65.23 Occlusion and stenosis of bilateral carotid arteries; E78.4 Other hyperlipidemia; R07.89 Other chest pain; R06.09 Other forms of dyspnea
CPT/HCPCS: 78452; 93017

== ENCOUNTER → 2017-06-24 | Outpatient (CLI) | payer MEDICARE, MEDICAID ==
[~2017-06-24] MED LIST changes: -CATHETER FLUSH 10 ML SYR IV PRN; -REGADENOSON 0.4 MG/5 ML SYR (LEXISCAN) IV ONE
--- NOTE | 2017-06-24 13:13 | Diagnostic Imaging Report ---
CLINICAL INDICATION: Patient with chest discomfort and history of diabetes. COMPARISON: None. RESTING PRESSURES: Brachial: Right: 114 mmHg Left: 105 mmHg High thigh: Right: 169 mmHg Left: 172 mmHg Posterior Tibial: Right: 145 mmHg Left: 145 mmHg Dorsal pedis: Right: 135 mmHg Left: 132 mmHg The right ankle/arm index is 1.27. The left is 1.27. IMPRESSION: The ankle/arm indices are normal at rest bilaterally. Dictated by: Dictated on workstation # [id number]
== END ==
LOC: RAD 10:55
PROVIDERS: ATTEND Internal Medicine Cardiovascular Disease
DX: I25.10 Atherosclerotic heart disease of native coronary artery without angina pectoris (principal); I65.23 Occlusion and stenosis of bilateral carotid arteries; I73.9 Peripheral vascular disease, unspecified; E78.5 Hyperlipidemia, unspecified; R06.09 Other forms of dyspnea
CPT/HCPCS: 93306; 93923

== ENCOUNTER 2017-06-29 16:11 | Emergency (ER) | payer MEDICARE, MEDICAID ==
[~2017-06-29] VITALS: Ht 162.6 cm; Wt 59.0 kg
--- OUTSIDE RECORDS SUMMARY | 2017-06-29 16:16 | XMS REPORT ---
Author Author ELLEN DISLA [facility] Address [address] [place] [address] Care Team Providers Care Stiff Straw Hat Washer Name Role Phone DISLAELLEN Unavailable PROBLEMS Type Condition ICD9-CM Code [id number] Code Onset Dates Condition Status SNOMED Code Problem Diaphragmatic hernia without mention of obstruction or gangrene 553.3 Active 99720198 Problem Unspecified senile cataract 366.10 Active 31681045 Problem Essential hypertension, benign 401.1 Active 1237608 Problem Loss of weight 783.21 Active 230486341 Problem Other and unspecified hyperlipidemia E78.5 Active 50875412 Problem CAD (coronary artery disease) I25.10 Active 41537888 Problem GERD (gastroesophageal reflux disease) 530.81 Active 385671474 Problem Asthma 493.90 Active 793411307 Problem Chronic airway obstruction, 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 Active 08004119 Problem DM w/o complication type II E11.9 Active 28912009 ALLERGIES No Information SOCIAL HISTORY Never Assessed PLAN OF CARE VITAL SIGNS MEDICATIONS Unknown Medications RESULTS Name Result Date Reference Range HEMOCCULT (IN HOUSE) 2016-10-11 RESULTS negative Control + Lot # [id number] Exp date 10/30/2018 HEMOCCULT (IN HOUSE)-Additional 2016-10-11 RESULTS positive Control + Lot # [id number] Exp Date 10/30/18 PROCEDURES Procedure Date Ordered Result Body Site TEST FOR BLOOD, FECES October 11, 2016 IMMUNIZATIONS No Known Immunizations MEDICAL (GENERAL) HISTORY Type Description Date Medical History chronic obstructive pulmonary disease (COPD) Medical History asthma Medical History acid reflux Medical History type II diabetes Medical History hypercholesterolemia Surgical History tubal ligation 1992 Surgical History surgery on legs and feet due to Polio childhood Surgical History Abcess removed from right chest cavity 07/2012 Hospitalization History Asthma excerbation/bronchitis--in hospital about 45 days 2004
--- OUTSIDE RECORDS SUMMARY | 2017-06-29 16:16 | XMS REPORT ---
Author Author ELLEN DISLA [facility] Address [address] [place] [address] Care Team Providers Care Timber Grader Name Role Phone ELLEN DISLA Unavailable PROBLEMS Type Condition ICD9-CM Code [id number] Code Onset Dates Condition Status SNOMED Code Problem Diaphragmatic hernia without mention of obstruction or gangrene 553.3 Active 08154954 Problem Unspecified senile cataract 366.10 Active 28064343 Problem Essential hypertension, benign 401.1 Active 2921976 Problem Loss of weight 783.21 Active 894625833 Problem Other and unspecified hyperlipidemia E78.5 Active 83104566 Problem CAD (coronary artery disease) I25.10 Active 59554243 Problem GERD (gastroesophageal reflux disease) 530.81 Active 094574533 Problem Asthma 493.90 Active 103953738 Problem Chronic airway obstruction, 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 Active 28668890 Problem DM w/o complication type II E11.9 Active 31590436 ALLERGIES No Information SOCIAL HISTORY Never Assessed PLAN OF CARE VITAL SIGNS MEDICATIONS Medication Instructions Dosage Frequency Start Date End Date Duration Status Omeprazole 40 mg Orally Once a day 1 capsule 24h Oct, Active Accolate 20 mg Orally Twice a day 1 tablet 12h Active Pravastatin Sodium 20 mg Orally Once a day 1 tablet 24h Active RESULTS No Results PROCEDURES No Known procedures IMMUNIZATIONS No Known Immunizations MEDICAL (GENERAL) HISTORY [...]
--- OUTSIDE RECORDS SUMMARY | 2017-06-29 16:17 | XMS REPORT ---
Author Author ELLEN DISLA [facility] Address [address] [place] [address] Care Team Providers Care Civil Service Clerk Name Role Phone ELLEN DISLA Unavailable PROBLEMS Type Condition ICD9-CM Code [id number] Code Onset Dates Condition Status SNOMED Code Problem Diaphragmatic hernia without mention of obstruction or gangrene 553.3 Active 98293600 Problem Unspecified senile cataract 366.10 Active 96335831 Problem Essential hypertension, benign 401.1 Active 0672528 Problem Loss of weight 783.21 Active 468879020 Problem Other and unspecified hyperlipidemia E78.5 Active 44454767 Problem CAD (coronary artery disease) I25.10 Active 84418689 Problem GERD (gastroesophageal reflux disease) 530.81 Active 061541470 Problem Asthma 493.90 Active 804675955 Problem Chronic airway obstruction, 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 Active 20943925 Problem DM w/o complication type II E11.9 Active 02284372 ALLERGIES Substance Reaction Event Type Date Status Bactrim hives Drug Allergy September, Active SOCIAL HISTORY Never Assessed PLAN OF CARE Activity Details Follow Up prn Reason:worsening VITAL SIGNS Height 66 in 2016-09-17 Weight 131.6 lbs 2016-09-17 Temperature 96.9 degrees Fahrenheit 2016-09-17 Heart Rate 88 bpm 2016-09-17 Respiratory Rate 20 2016-09-17 Oximetry 96 % 2016-09-17 BMI 21.24 kg/m2 2016-09-17 Blood pressure systolic 128 mmHg 2016-09-17 Blood pressure diastolic 70 mmHg 2016-09-17 MEDICATIONS Medication Instructions Dosage Frequency Start Date End Date Duration Status Spiriva HandiHaler 18 MCG INHALE THE CONTENTS OF ONE (1) CAPSULE ONCE DAILY... Active Aldactone 25 MG TAKE ONE (1) TABLET BY MOUTH TWICE DAILY... Active Meclizine HCl 25 MG Orally 3 times a day 1 tablet as needed for dizziness 8h Nov, Active Albuterol Sulfate (2.5 MG/3ML) 0.083% Inhalation Three times a day 3 ml 8h Active Aspirin Adult Low Dose 81 MG Orally Once a day 1 tablet 24h Active Metformin HCl 500 mg Orally twice a day 2 .5 tabs in AM and 1 1/2 tablets in pm 12h Active Pravastatin Sodium 20 mg Orally Once a day 1 tablet 24h Active Symbicort 160-4.5 MCG/ACT INHALE 2 PUFFS BY MOUTH TWICE DAILY.... Active Meloxicam 15 MG Orally Once a day 1 tablet 24h Active OneTouch Ultra Test - CHECK BLOOD SUGAR TWICE DAILY DIRECTED. Active Accolate 20 mg Orally Twice a day 1 tablet 12h Active SyncSumTouch Ultra Test Test Strips as directed Oct, Active Benzonatate 100 mg Orally Three times a day 1 capsule as needed 8h September, Active Ventolin HFA 108 (90 Base) MCG/ACT INHALE 2 PUFFS EVERY 4 HOURS NEEDED... Active PredniSONE 10 mg Orally Once a day 2 tablet with food or milk 24h September, September, 05 days Active Omeprazole 40 mg Orally Once a day 1 capsule 24h Oct, Active RESULTS No Results PROCEDURES Procedure Date Ordered Result Body Site MEASURE BLOOD OXYGEN LEVEL September 17, 2016 [facility] VISIT ESTABLISHED PATIENT September 17, 2016 IMMUNIZATIONS No Known Immunizations MEDICAL (GENERAL) [...]
--- OUTSIDE RECORDS SUMMARY | 2017-06-29 16:17 | XMS REPORT ---
Author Author ELLEN DISLA [facility] Address [address] [place] [address] Care Team Providers Care Miniature Set Designer Name Role Phone ELLEN DISLA Unavailable PROBLEMS Type Condition ICD9-CM Code CXF68-OS Code Onset Dates Condition Status SNOMED Code Problem Diaphragmatic hernia without mention of obstruction or gangrene 553.3 Active 92059269 Problem Unspecified senile cataract 366.10 Active 29912562 Problem Essential hypertension, benign 401.1 Active 8350888 Problem Loss of weight 783.21 Active 652809203 Problem Other and unspecified hyperlipidemia E78.5 Active 48339916 Problem CAD (coronary artery disease) I25.10 Active 06755409 Problem GERD (gastroesophageal reflux disease) 530.81 Active 014520923 Problem Asthma 493.90 Active 518495414 Problem Chronic airway obstruction, 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 Active 38990235 Problem DM w/o complication type II E11.9 Active 32296224 ALLERGIES No Information SOCIAL HISTORY Never Assessed PLAN OF CARE VITAL SIGNS MEDICATIONS Unknown Medications RESULTS No Results PROCEDURES No Known procedures [...]
--- OUTSIDE RECORDS SUMMARY | 2017-06-29 16:18 | XMS REPORT ---
Author Author ELLEN DISLA [facility] Address [address] [place] [address] Care Team Providers Care Construction Carpenter Name Role Phone ELLEN DISLA Unavailable PROBLEMS Type Condition ICD9-CM Code RNV70-EA Code Onset Dates Condition Status SNOMED Code Problem Diaphragmatic hernia without mention of obstruction or gangrene 553.3 Active 71608716 Problem Unspecified senile cataract 366.10 Active 44333047 Problem Essential hypertension, benign 401.1 Active 4426777 Problem Loss of weight 783.21 Active 643096414 Problem Other and unspecified hyperlipidemia E78.5 Active 73180519 Problem CAD (coronary artery disease) I25.10 Active 20826191 Problem GERD (gastroesophageal reflux disease) 530.81 Active 031189490 Problem Asthma 493.90 Active 681652469 Problem Chronic airway obstruction, 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 Active 12154828 Problem DM w/o complication type II E11.9 Active 97190293 ALLERGIES Substance Reaction Event Type Date Status Bactrim hives Drug Allergy Aug, Active SOCIAL HISTORY Never Assessed PLAN OF CARE Activity Details Follow Up 3 Months Reason:dm VITAL SIGNS MEDICATIONS Medication Instructions Dosage Frequency Start Date End Date Duration Status Albuterol Sulfate (2.5 MG/3ML) 0.083% Inhalation Three times a day 3 ml 8h Active Metformin HCl 500 mg Orally twice a day 2 .5 tabs in AM and 1 1/2 tablets in pm 12h Active Ventolin HFA 108 (90 Base) MCG/ACT INHALE 2 PUFFS EVERY 4 HOURS NEEDED... Active Meloxicam 15 MG Orally Once a day 1 tablet 24h Active Kuznech Ultra Test - CHECK BLOOD SUGAR TWICE DAILY DIRECTED. Active Pravastatin Sodium 20 mg Orally Once a day 1 tablet 24h Active Aspirin Adult Low Dose 81 MG Orally Once a day 1 tablet 24h Active Accolate 20 MG TAKE ONE (1) TABLET BY MOUTH TWICE DAILY... Active Aldactone 25 MG TAKE ONE (1) TABLET BY MOUTH TWICE DAILY... Active Spiriva HandiHaler 18 MCG INHALE THE CONTENTS OF ONE (1) CAPSULE ONCE DAILY... Active OneTouch Ultra Test Test Strips as directed Oct, Active Symbicort 160-4.5 MCG/ACT INHALE 2 PUFFS BY MOUTH TWICE DAILY.... Active Omeprazole 40 MG Orally Once a day 1 capsule 24h Oct, Active Meclizine HCl 25 MG Orally 3 times a day 1 tablet as needed for dizziness 8h Nov, Active RESULTS Name Result Date Reference Range A1C (IN HOUSE) 2016-08-27 A1C IN HOUSE 6.8 4.3 - 5.6 % Previous A1c 6.6 Lot [id number] Exp date 02/26 PROCEDURES Procedure Date Ordered Result Body Site GLYCATED HEMOGLOBIN TEST August 27, 2016 [facility] VISIT ESTABLISHED PATIENT August 27, 2016 IMMUNIZATIONS No Known Immunizations MEDICAL (GENERAL) [...]
--- OUTSIDE RECORDS SUMMARY | 2017-06-29 16:20 | XMS REPORT | Continuity of Care Document ---
Author Author [facility] Address Unknown Phone Unavailable Allergies Active Description Code Type Severity Reaction Onset Reported/Identified Relationship to Patient Clinical Status Yes sulfADIAZINE Drug Allergy 10/18/2009 Yes sulfADIAZINE Drug Allergy N/ A N/A 10/18/2009 Yes Sulfa (Sulfonamide Antibiotics) [id number] Drug Allergy Moderate N/A 2016 Medications There is no data. Problems Date Dx Coded Attending Type Code [...] ASTHMA, UNSPECIFIED, WITH (ACUTE) EXACERBATION 08/16/2009 DISLA SHIFTMANELLEN R 477.9 ALLERGIC RHINITIS, CAUSE UNSPECIFIED 08/16/2009 DISLA SHIFTMAN ELLEN R 493.92 ASTHMA, UNSPECIFIED, WITH (ACUTE) [...] ASTHMA, UNSPECIFIED, WITH (ACUTE) EXACERBATION 08/16/2009 DISLA SHIFTMANELLEN R 477.9 ALLERGIC RHINITIS, CAUSE UNSPECIFIED 08/16/2009 DISLA SHIFTMANELLEN R 493.92 ASTHMA, UNSPECIFIED, WITH (ACUTE) EXACERBATION 08/16/2009 DISLA SHIFTMANELLEN R 477.9 ALLERGIC RHINITIS, CAUSE UNSPECIFIED 08/16/2009 DISLA SHIFTMANELLEN R 493.92 ASTHMA, UNSPECIFIED, WITH (ACUTE) EXACERBATION 08/16/2009 DISLA SHIFTMANELLEN R 477.9 ALLERGIC RHINITIS, CAUSE UNSPECIFIED 08/16/2009 ELLEN DISLA APRN 493.92 ASTHMA, UNSPECIFIED, WITH (ACUTE) EXACERBATION 08/16/2009 TOSHIA POPE DO K 477.9 ALLERGIC RHINITIS, CAUSE UNSPECIFIED 08/16/2009 TOSHIA BLISS TOSHIA K 493.92 ASTHMA, UNSPECIFIED, WITH (ACUTE) [...] DISORDERS OF FUNCTION OF STOMACH 10/18/2009 POPE DOLESLEYA K 536.8 DYSPEPSIA AND OTHER SPECIFIED DISORDERS OF FUNCTION OF STOMACH 10/18/2009 TOSHIA DO TOSHIA K 536.8 DYSPEPSIA AND OTHER SPECIFIED DISORDERS OF FUNCTION OF STOMACH 10/18/2009 POPE DO TOSHIA K 536.8 DYSPEPSIA AND OTHER SPECIFIED DISORDERS OF FUNCTION OF STOMACH 10/18/2009 TOSHIA DO TOSHIA K 536.8 DYSPEPSIA AND OTHER SPECIFIED DISORDERS OF FUNCTION OF STOMACH 10/18/2009 ELLEN DISLA APRN 536.8 DYSPEPSIA AND OTHER SPECIFIED DISORDERS OF FUNCTION OF STOMACH 10/18/2009 POPE DO TOSHIA K 536.8 DYSPEPSIA AND OTHER SPECIFIED DISORDERS OF FUNCTION OF STOMACH 10/18/2009 POPE DO TOSHIA K 536.8 DYSPEPSIA AND OTHER SPECIFIED DISORDERS OF FUNCTION OF STOMACH 10/18/2009 POPE DO OTSHIA K 536.8 DYSPEPSIA AND OTHER SPECIFIED DISORDERS [...] DISORDERS OF FUNCTION OF STOMACH 10/18/2009 POPE DO, TOSHIA K 536.8 DYSPEPSIA AND OTHER SPECIFIED [...] FOOT 09/05/2010 719.07 EDEMA FOOT 09/05/2010 ELLEN DISLA APRN 719.07 EDEMA FOOT 09/05/2010 POPE DO, TOSHIA [...] DISLA APRN 719.07 EDEMA FOOT 09/05/2010 DISLA SHIFTMANELLEN Monteiro 719.07 EDEMA FOOT 09/05/2010 DISLA SHIFTMANELLEN Monteiro 719.07 EDEMA FOOT 09/05/2010 POPE DO, TOSHIA [...] 02/04/2011 787.01 NAUSEA WITH VOMITING 02/04/2011 DISLA SHIFTMAN, ELLEN R 493.90 ASTHMA UNSPECIFIED 02/04/2011 DISLA SHIFTMAN, ELLEN R 786.07 WHEEZING 02/04/2011 DISLA SHIFTMAN, ELLEN R 786.2 COUGH 02/04/2011 DISLA SHIFTMAN, ELLEN R 787.01 NAUSEA WITH VOMITING 02/04/2011 [...] TOSHIA K 787.01 NAUSEA WITH VOMITING 02/04/2011 DISLA SHIFTMANELLEN R 493.90 ASTHMA UNSPECIFIED 02/04/2011 DISLA SHIFTMAN, ELLEN R 786.07 WHEEZING 02/04/2011 DISLA SHIFTMAN, ELLEN R 786.2 COUGH 02/04/2011 DISLA SHIFTMAN, ELLEN R 787.01 NAUSEA WITH VOMITING 02/04/2011 [...] POPE DO, TOSHIA K 786.2 COUGH 02/04/2011 PPOE DO, TOSHIA K 787.01 NAUSEA WITH VOMITING 02/04/2011 POPE DO, TOSHIA K 493.90 ASTHMA UNSPECIFIED 02/04/2011 POPE DO, TOSHIA K 786.07 WHEEZING 02/04/2011 POPE DO, TOSHIA K 786.2 COUGH 02/04/2011 POPE DO, TOSHIA K 787.01 NAUSEA WITH VOMITING 02/04/2011 DISLA ELLEN MICHELLE R 493.90 ASTHMA UNSPECIFIED 02/04/2011 DISLA SHIFTMAN, ELLEN R 786.07 WHEEZING 02/04/2011 DISLA SHIFTMAN, ELLEN R 786.2 COUGH 02/04/2011 DISLA SHIFTMAN, ELLEN R 787.01 NAUSEA WITH VOMITING 02/04/2011 DISLA SHIFTMAN, ELLEN R 493.90 ASTHMA UNSPECIFIED 02/04/2011 DISLA SHIFTMAN, ELLEN R 786.07 WHEEZING 02/04/2011 DISLA SHIFTMAN, ELLEN R 786.2 COUGH 02/04/2011 DISLA SHIFTMAN, ELLEN R 787.01 NAUSEA WITH VOMITING 02/04/2011 DISLA SHIFTMAN ELLEN R 493.90 ASTHMA UNSPECIFIED 02/04/2011 DISLA SHIFTMAN, ELLEN R 786.07 WHEEZING 02/04/2011 DISLA SHIFTMAN, ELLEN R 786.2 COUGH 02/04/2011 DISLA SHIFTMAN, ELLEN R 787.01 NAUSEA WITH VOMITING 02/04/2011 POPE DO, TOSHIA K 493.90 ASTHMA UNSPECIFIED 02/04/2011 POPE DO, TOSHIA K 786.07 WHEEZING 02/04/2011 POPE DO, TOSHIA K 786.2 COUGH 02/04/2011 POPE DO, TOSHIA K 787.01 NAUSEA WITH VOMITING 05/02/2011 931 FOREIGN BODY IN EAR 05/02/2011 ELLEN DISLA APRN R 931 FOREIGN BODY IN EAR 05/02/2011 931 [...] APRN 931 FOREIGN BODY IN EAR 05/02/2011 ELLEN [...] POPE DO, TOSHIA K 791.5 GLYCOSURIA 05/20/2011 DISLAELLEN STORY APRN R 599.0 URINARY TRACT INFECTION 05/20/2011 DISLA ELLEN MICHELLE 791.5 GLYCOSURIA 05/20/2011 DISLA ELLEN MICHELLE 599.0 URINARY TRACT INFECTION 05/20/2011 DISLA ELLEN [...] 682.5 CELLULITIS AND ABSCESS OF BUTTOCK 12/26/2011 LESLEY POPE DOA K 682.5 CELLULITIS AND ABSCESS OF BUTTOCK 12/26/2011 LESLEY POPE DOA K 682.5 CELLULITIS AND ABSCESS OF BUTTOCK 12/26/2011 LESLEY POPE DOA K 682.5 CELLULITIS AND ABSCESS OF BUTTOCK 12/26/2011 ELLEN DISLA APRN 682.5 CELLULITIS AND ABSCESS OF BUTTOCK 12/26/2011 TOSHIA POPE DO K 682.5 CELLULITIS AND ABSCESS OF BUTTOCK 12/26/2011 LESLEY POPE DOA K 682.5 CELLULITIS AND ABSCESS OF BUTTOCK 12/26/2011 LESLEY POPE DOA K 682.5 CELLULITIS AND ABSCESS OF BUTTOCK 12/26/2011 LESLEY POPE DOA K 682.5 CELLULITIS AND ABSCESS OF BUTTOCK [...] 07/01/2012 ELLEN DISLA APRN 487.1 INFLUENZA 07/01/2012 TOSHIA POPE DO K 487.1 INFLUENZA 07/01/2012 TOSHIA BLISS, TOSHIA K 487.1 INFLUENZA 07/01/2012 TOSHIA BLISS, TOSHIA K 487.1 INFLUENZA 07/01/2012 TOSHIA BLISS, TOSHIA K 487.1 INFLUENZA 07/01/2012 DISLA ELLEN MICHELLE R 487.1 INFLUENZA 07/01/2012 TOSHIA BLISS, TOSHIA K 487.1 INFLUENZA 07/01/2012 TOSHIA BLISS, TOSHIA K 487.1 INFLUENZA 07/01/2012 TOSHIA BLISS, TOSHIA K 487.1 INFLUENZA 07/01/2012 TOSHIA BLISS, TOSHIA K 487.1 INFLUENZA 07/01/2012 ELLEN DISLA APRN 487.1 INFLUENZA 07/01/2012 ELLEN DISLA APRN 487.1 INFLUENZA 07/01/2012 ELLEN DISLA APRN 487.1 INFLUENZA 07/01/2012 TOSHIA POPE DO K 487.1 INFLUENZA 08/14/2012 Ot 112.4 CANDIDIASIS OF LUNG 08/14/2012 Ot 275.2 DIS MAGNESIUM METABOLISM 08/14/2012 Ot 276.1 HYPOSMOLALITY 08/14/2012 Ot 276.8 HYPOPOTASSEMIA 08/14/2012 Ot 285.9 ANEMIA NOS 08/14/2012 Ot 300.00 ANXIETY STATE NOS 08/14/2012 Ot 359.81 CRITICAL ILLNESS MYOPATHY 08/14/2012 Ot 401.9 HYPERTENSION NOS 08/14/2012 Ot 493.90 ASTHMA, UNSPECIFIED 08/14/2012 Ot 584.5 ACUTE KIDNEY FAILURE WITH LESION OF TUBU 08/14/2012 Ot 707.07 PRESSURE ULCER, HEEL 08/14/2012 Ot 707.20 PRESSURE ULCER, UNSPECIFIED STAGE 08/14/2012 Ot 790.29 OTHER ABNORMAL GLUCOSE 08/14/2012 Ot E932.0 ADV EFF CORTICOSTEROIDS 08/14/2012 Ot V46.2 SUPPLEMENTAL OXYGEN 08/14/2012 Ot V57.1 PHYSICAL THERAPY NEC 08/14/2012 Ot V57.21 ENCOUNTER FOR OCCUPATIONAL THERAPY 08/17/2012 ELLEN DISLA APRN R 401.1 HYPERTENSION, BENIGN ESSENTIAL 08/17/2012 401.1 HYPERTENSION, BENIGN ESSENTIAL 08/17/2012 401.1 HYPERTENSION, BENIGN ESSENTIAL 08/17/2012 401.1 HYPERTENSION, BENIGN ESSENTIAL 08/17/2012 401.1 HYPERTENSION, BENIGN ESSENTIAL 08/17/2012 401.1 HYPERTENSION, BENIGN ESSENTIAL 08/17/2012 ELLEN DISLA [...] DO, TOSHIA K 783.21 WEIGHT LOSS 09/18/2012 DISLA SHIFTMANELLEN Monteiro 783.21 WEIGHT LOSS 09/18/2012 DISLA SHIFTMANELLEN Monteiro 783.21 WEIGHT LOSS 09/18/2012 DISLA SHIFTMANELLEN Monteiro 783.21 WEIGHT LOSS 09/18/2012 POPE DO, TOSHIA K 783.21 WEIGHT LOSS 10/26/2012 786.05 SHORTNESS OF BREATH 10/26/2012 786.05 SHORTNESS OF BREATH 10/26/2012 786.05 SHORTNESS OF BREATH 10/26/2012 DISLA SHIFTMANELLEN Monteiro 786.05 SHORTNESS OF BREATH 10/26/2012 POPE DO, TOSHIA K 786.05 SHORTNESS OF BREATH 10/26/2012 POPE DO, TOSHIA K 786.05 SHORTNESS OF BREATH 10/26/2012 POPE DO, TOSHIA K 786.05 SHORTNESS OF BREATH 10/26/2012 POPE DO, TOSHIA K 786.05 SHORTNESS OF BREATH 10/26/2012 DISLA SHIFTMANELLEN 786.05 SHORTNESS OF BREATH 10/26/2012 POPE DO, TOSHIA K 786.05 SHORTNESS OF BREATH 10/26/2012 POPE DO, TOSHIA K 786.05 SHORTNESS OF BREATH 10/26/2012 POPE DO, TOSHIA K 786.05 SHORTNESS OF BREATH 10/26/2012 POPE DO, TOSHIA K 786.05 SHORTNESS OF BREATH 10/26/2012 DISLA SHIFTMANELLEN Monteiro 786.05 SHORTNESS OF BREATH 10/26/2012 DISLA SHIFTMANELLEN R 786.05 SHORTNESS OF BREATH 10/26/2012 DISLA SHIFTMANELLEN 786.05 SHORTNESS OF BREATH 10/26/2012 POPE DO, TOSHIA K 786.05 SHORTNESS OF BREATH 01/20/2013 DISLA SHIFTMANELLEN Monteiro R 366.10 cataracts unspecified, right, left or both 01/20/2013 POPE DO, TOSHIA K 366.10 cataracts unspecified, right, left or both 01/20/2013 POPE DO, TOSHIA K 366.10 cataracts unspecified, right, left or both 01/20/2013 POPE DO, TOSHIA K 366.10 cataracts unspecified, right, left or both 01/20/2013 TOSHIA POPE DO K 366.10 cataracts unspecified, right, left or both 01/20/2013 ELLEN DISLA APRN 366.10 cataracts unspecified, right, left or both 01/20/2013 TOSHIA POPE DO K 366.10 cataracts unspecified, right, left or both 01/20/2013 POPE DOTOSHIA K 366.10 cataracts unspecified, right, left or both 01/20/2013 POPE DOTOSHIA K 366.10 cataracts unspecified, right, left or both 01/20/2013 TOSHIA POPE DO K 366.10 cataracts unspecified, right, left or both 01/20/2013 ELLEN DISLA APRN 366.10 cataracts unspecified, right, left or both 01/20/2013 ELLEN DISLA APRN 366.10 cataracts unspecified, right, left or both 01/20/2013 ELLEN DISLA APRN 366.10 cataracts unspecified, right, left or both 01/20/2013 TOSHIA POPE DO K 366.10 cataracts unspecified, right, left or both 03/09/2013 MODE SCHILLING FACC, PAZ FACP CCDS Ot 414.01 CORONARY ATHEROSCLEROSIS OF [place] CORON 03/09/2013 MODE SCHILLING FACC, PAZ FACP CCDS Ot 458.9 HYPOTENSION NOS 03/09/2013 MODE SCHILLING FACC ALI FACP CCDS Ot 493.90 ASTHMA, UNSPECIFIED 03/09/2013 PAZ COELLO MD, FACC FACP CCDS Ot 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 03/09/2013 MODE SCHILLING FACC ALI FACP CCDS Ot 780.79 OTH MALAISE FATIGUE 03/09/2013 PAZ COELLO MD, FACC FACP CCDS Ot 786.09 RESPIRATORY ABNORM NEC 03/09/2013 PAZ COELLO MD, FACC FACP CCDS Ot 786.59 CHEST PAIN NEC 03/09/2013 MODE SCHILLING FACC, ALI FACP CCDS Ot V15.82 HISTORY OF TOBACCO USE 03/09/2013 MODE SCHILLING FACC ALI FACP CCDS Ot V58.69 OTH MED,LT,CURRENT USE 03/23/2013 TOSHIA POPE DO K 786.50 CHEST PAIN 03/23/2013 POPE DO, [...] ELLEN DISLA APRN 786.50 CHEST PAIN 03/23/2013 ELLEN DISLA APRN 786.50 CHEST PAIN 03/23/2013 ELLEN DISLA APRN 786.50 CHEST PAIN 03/23/2013 POPE DO, TOSHIA K 786.50 CHEST PAIN 04/05/2013 POPE DO, TOSHIA K 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 04/05/2013 POPE DO, TOSHIA K 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 04/05/2013 ELLEN DISLA APRN 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 04/05/2013 POPE DO, TOSHIA K 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 04/05/2013 POPE DO, TOSHIA K 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 04/05/2013 POPE DO, TOSHIA K 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 04/05/2013 POPE DO, TOSHIA K 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 04/05/2013 ELLEN DISLA APRN 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 04/05/2013 ELLEN DISLA APRN 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 04/05/2013 DISLA ELLEN MICHELLE 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 04/05/2013 POPE DO, TOSHIA K 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 07/08/2013 POPE DO, TOSHIA K 272.0 HYPERCHOLESTEROLEMIA 07/08/2013 POPE DO, TOSHIA K 272.0 HYPERCHOLESTEROLEMIA 07/08/2013 POPE DO, TOSHIA K 272.0 HYPERCHOLESTEROLEMIA 07/08/2013 POPE DO, TOSHIA K 272.0 HYPERCHOLESTEROLEMIA 07/08/2013 DISLA SHIFTMAN, ELLEN R 272.0 HYPERCHOLESTEROLEMIA 07/08/2013 NIGHAT BRAXTONELLEN Monteiro R 272.0 HYPERCHOLESTEROLEMIA 07/08/2013 DISLA ELLEN MICHELLE R 272.0 HYPERCHOLESTEROLEMIA 07/08/2013 TOSHIA POPE DO K 272.0 HYPERCHOLESTEROLEMIA 06/08/2014 RIC , YAN M Ot 486 06/08/2014 RIC DO, YAN M Ot 525.9 06/08/2014 YAN LARIOS DO M Ot 786.09 06/23/2014 RIC DO, YAN M Ot 486 06/23/2014 RIC DO, YAN M Ot 525.9 06/23/2014 RIC DO, YAN M Ot 786.09 08/24/2014 POPE DOLESLEYA K 496 COPD 08/24/2014 POPE DO, TOSHIA K 719.46 PAIN- KNEE 08/24/2014 POPE DO, TOSHIA K 790.29 ABNORMAL GLUCOSE 01/17/2015 VIKI SAAVEDRAP Ot 786.09 01/17/2015 ELLEN DISLA Ot 786.59 01/17/2015 YAN LARIOS DO M Ot 486 01/17/2015 YAN LARIOS DO M Ot 525.9 01/17/2015 YAN LARIOS DO M Ot 786.09 01/31/2015 VIKI SAAVEDRA Ot 786.09 01/31/2015 ELLEN DISLA Ot 786.59 01/31/2015 YAN LARIOS DO M Ot 486 01/31/2015 YAN LARIOS DO M Ot 525.9 01/31/2015 YAN LARIOS DO Ot 786.09 01/31/2015 GLORIAERIC MANCINI DO Ot V72.84 01/31/2015 GLORIAERIC MANCINI DO Ot 211.3 BENIGN NEOPLASM LG BOWEL 01/31/2015 GLORIA ERIC BLISS Ot 553.3 DIAPHRAGMATIC HERNIA 01/31/2015 GLORIA ERIC BLISS Ot 787.91 DIARRHEA 01/31/2015 AUBERRY ERIC BLISS Ot 792.1 ABN FIND-STOOL CONTENTS 02/23/2015 VIKI SAAVEDRAP Ot 786.09 02/23/2015 ELLEN DISLA Ot 786.59 02/23/2015 YAN LARIOS DO Ot 486 02/23/2015 YAN LARIOS DO Ot 525.9 02/23/2015 YAN LARIOS DO Ot 786.09 02/23/2015 ERIC GLORIA DO Ot V72.84 03/15/2015 ERIC GLORIA DO Ot K62.5 07/27/2015 MODE SCHILLING FACC, ALI FACP CCDS Ot E78.0 07/27/2015 MODE SCHILLING FACC, ALI FACP CCDS Ot I25.10 07/27/2015 MODE SCHILLING FACC, ALI FACP CCDS Ot I65.23 07/27/2015 MODE SCHILLING FACC, ALI FACP CCDS Ot J43.8 07/27/2015 MODE SCHILLING FACC, ALI FACP CCDS Ot E78.0 07/27/2015 MODE SCHILLING FACC, ALI FACP CCDS Ot I25.10 07/27/2015 MODE SCHILLING FACC, ALI FACP CCDS Ot I65.23 07/27/2015 MODE SCHILLING FACC, ALI FACP CCDS Ot J43.8 07/27/2015 MODE SCHILLING FACC, ALI FACP CCDS Ot R06.09 08/02/2015 MODE SCHILLING FACC, ALI FACP CCDS Ot E78.0 08/02/2015 MODE SCHILLING FACC, ALI FACP CCDS Ot I25.10 08/02/2015 MODE SCHILLING FACC, ALI FACP CCDS Ot I65.23 08/02/2015 MODE SCHILLING FACC, ALI FACP CCDS Ot J43.8 08/03/2015 MODE SCHILLING FACC, ALI FACP CCDS Ot E78.0 08/03/2015 MODE SCHILLING FACC, ALI FACP CCDS Ot I25.10 08/03/2015 MODE SCHILLING FACC, ALI FACP CCDS Ot I65.23 08/03/2015 MODE SCHILLING FACC, ALI FACP CCDS Ot J43.8 08/03/2015 MODE SCHILLING FACC, ALI FACP CCDS Ot R06.09 01/22/2016 YAN [...] DO Ot R06.09 OTHER FORMS OF DYSPNEA 11/11/2016 ERIC GLORIA DO Ot R19.5 OTHER FECAL ABNORMALITIES 11/11/2016 ERIC GLORIA DO Ot Z01.818 ENCOUNTER FOR OTHER PREPROCEDURAL EXAMIN 11/14/2016 VIKI SAAVEDRA SWEATBAND FLANGER Ot 786.09 RESPIRATORY ABNORM NEC 11/14/2016 ELLEN DISLA CFNP Ot 786.59 CHEST PAIN NEC 11/14/2016 YAN LARIOS DO Ot 486 PNEUMONIA, ORGANISM NOS 11/14/2016 YAN LARIOS DO Ot 525.9 DENTAL DISORDER NOS 11/14/2016 YAN LARIOS DO Ot 786.09 RESPIRATORY ABNORM NEC 11/14/2016 ERIC GLORIA DO Ot V72.84 EXAM PRE-OPERATIVE NOS 11/14/2016 ERIC GLORIA DO Ot K62.5 HEMORRHAGE OF ANUS AND RECTUM 11/14/2016 MODE SCHILLING FACC, PAZ FACP CCDS Ot E78.0 PURE HYPERCHOLESTEROLEMIA 11/14/2016 MODE SCHILLING FACC, PAZ FACP CCDS Ot I25.10 ATHSCL HEART DISEASE OF [place] CORONARY 11/14/2016 MODE SCHILLING FACC, PAZ FACP CCDS Ot I65.23 OCCLUSION AND STENOSIS OF BIL[place]AL [place] 11/14/2016 MODE SCHILLING FACC, PAZ FACP CCDS Ot J43.8 OTHER EMPHYSEMA 11/14/2016 MODE SCHILLING FACC, PAZ FACP CCDS Ot R06.09 OTHER FORMS OF DYSPNEA 11/14/2016 MODE SCHILLING FACC, PAZ FACP CCDS Ot E78.0 PURE HYPERCHOLESTEROLEMIA 11/14/2016 MODE SCHILLING FACC, PAZ FACP CCDS Ot I25.10 ATHSCL HEART DISEASE OF [place] CORONARY 11/14/2016 MODE SCHILLING FACC, PAZ DEE CCDS Ot I65.23 OCCLUSION AND STENOSIS OF BILATERAL [place] 11/14/2016 MODE SCHILLING FACC, PAZ [facility] [address] CCDS Ot J43.8 OTHER EMPHYSEMA 11/14/2016 YAN LARIOS DO Ot J44.9 CHRONIC OBSTRUCTIVE PULMONARY DISEASE, U 11/14/2016 YAN LARIOS DO Ot K44.9 DIAPHRAGMATIC HERNIA WITHOUT OBSTRUCTION 11/14/2016 YAN LARIOS DO Ot R06.09 OTHER FORMS OF DYSPNEA 11/14/2016 ERIC GLORIA DO Ot E11.9 TYPE 2 DIABETES MELLITUS WITHOUT COMPLIC 11/14/2016 ERIC GLORIA DO Ot E78.5 HYPERLIPIDEMIA, UNSPECIFIED 11/14/2016 ERIC GLORIA DO Ot I25.759 ATHSCL [place] COR ART OF TRANSPLANTED HE 11/14/2016 ERIC GLORIA DO Ot I35.8 OTHER NONRHEUMATIC AORTIC VALVE DISORDER 11/14/2016 ERIC GLORIA DO Ot J44.9 CHRONIC OBSTRUCTIVE PULMONARY DISEASE, U 11/14/2016 ERIC GLORIA DO Ot J45.909 UNSPECIFIED ASTHMA, UNCOMPLICATED 11/14/2016 ERIC GLORIA DO Ot K21.9 GASTRO-ESOPHAGEAL REFLUX DISEASE WITHOUT 11/14/2016 ERIC GLORIA DO Ot K64.8 OTHER HEMORRHOIDS 11/14/2016 ERIC GLORIA DO Ot R19.5 OTHER FECAL ABNORMALITIES 11/14/2016 ERIC GLORIA DO Ot Z79.84 DETENTION (CURRENT) USE OF ORAL HYPOGLYC 11/14/2016 ERIC GLORIA DO Ot 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.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 11/20/2016 ERIC GLORIA DO Ot E11.9 TYPE 2 DIABETES MELLITUS WITHOUT COMPLIC 11/20/2016 ERIC GLORIA DO Ot E78.5 HYPERLIPIDEMIA, UNSPECIFIED 11/20/2016 ERIC GLORIA DO Ot I25.759 ATHSCL [place] COR ART OF TRANSPLANTED HE 11/20/2016 ERIC GLORIA DO Ot I35.8 OTHER NONRHEUMATIC AORTIC VALVE DISORDER 11/20/2016 ERIC GLORIA DO Ot J44.9 CHRONIC OBSTRUCTIVE PULMONARY DISEASE, U 11/20/2016 ERIC GLORIA DO Ot J45.909 UNSPECIFIED ASTHMA, UNCOMPLICATED 11/20/2016 ERIC GLORIA DO Ot K21.9 GASTRO-ESOPHAGEAL REFLUX DISEASE WITHOUT 11/20/2016 ERIC GLORIA DO Ot K64.8 OTHER HEMORRHOIDS 11/20/2016 ERIC GLORIA DO Ot R19.5 OTHER FECAL ABNORMALITIES 11/20/2016 ERIC GLORIA DO Ot Z79.84 FORKLIFT TECHNICIAN (CURRENT) USE OF ORAL HYPOGLYC 11/20/2016 ERIC GLORIA DO Ot Z79.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 01/14/2017 ERIC GLORIA DO Ot K42.9 UMBILICAL HERNIA WITHOUT OBSTRUCTION OR 01/14/2017 ERIC GLORIA DO Ot Z01.812 ENCOUNTER FOR PREPROCEDURAL LABORATORY E 01/16/2017 ERIC GLORIA DO Ot E11.9 TYPE 2 DIABETES MELLITUS WITHOUT COMPLIC 01/16/2017 ERIC GLORIA DO Ot E78.5 HYPERLIPIDEMIA, UNSPECIFIED 01/16/2017 ERIC GLORIA DO Ot I25.10 ATHSCL HEART DISEASE OF [place] CORONARY 01/16/2017 ERIC GLORIA DO Ot I35.8 OTHER NONRHEUMATIC AORTIC VALVE DISORDER 01/16/2017 ERIC GLORIA DO Ot J44.9 CHRONIC OBSTRUCTIVE PULMONARY DISEASE, U 01/16/2017 ERIC GLORIA DO Ot J45.909 UNSPECIFIED ASTHMA, UNCOMPLICATED 01/16/2017 ERIC GLORIA DO Ot K43.2 INCISIONAL HERNIA WITHOUT OBSTRUCTION OR 01/16/2017 ERIC GLORIA DO Ot Z79.899 OTHER DETENTION (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 THERAPY 01/16/2017 ERIC GLORIA DO Ot Z87.891 PERSONAL HISTORY OF NICOTINE DEPENDENCE 01/17/2017 ERIC GLORIA DO Ot E11.9 TYPE 2 DIABETES MELLITUS WITHOUT COMPLIC 01/17/2017 ERIC GLORIA DO Ot E78.5 HYPERLIPIDEMIA, UNSPECIFIED 01/17/2017 ERIC GLORIA DO Ot I25.10 ATHSCL HEART DISEASE OF [place] CORONARY 01/17/2017 ERIC GLORIA DO Ot I35.8 OTHER NONRHEUMATIC AORTIC VALVE DISORDER 01/17/2017 ERIC GLORIA DO Ot J44.9 CHRONIC OBSTRUCTIVE PULMONARY DISEASE, U 01/17/2017 ERIC GLORIA DO Ot J45.909 UNSPECIFIED ASTHMA, UNCOMPLICATED 01/17/2017 ERIC GLORIA DO Ot K43.2 INCISIONAL HERNIA WITHOUT OBSTRUCTION OR 01/17/2017 ERIC GLORIA DO Ot Z79.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 01/17/2017 ERIC GLORIA DO Ot Z87.891 PERSONAL HISTORY OF NICOTINE DEPENDENCE 05/23/2017 MODE SCHILLING FACC, PAZ FACP CCDS Ot I73.9 PERIPHERAL VASCULAR DISEASE, UNSPECIFIED 05/27/2017 MODE SCHILLING FACC, ALI FACP CCDS Ot I73.9 PERIPHERAL VASCULAR DISEASE, UNSPECIFIED 05/27/2017 MODE SCHILLING FACC, ALI FACP CCDS Ot I73.9 PERIPHERAL VASCULAR DISEASE, UNSPECIFIED 06/11/2017 MDOE SCHILLING FACC, ALI FACP CCDS Ot E78.4 OTHER HYPERLIPIDEMIA 06/11/2017 MODE SCHILLING FACC, ALI FACP CCDS Ot I25.10 ATHSCL HEART DISEASE OF [place] CORONARY 06/11/2017 MODE SCHILLING FACC, ALI FACP CCDS Ot I65.23 OCCLUSION AND STENOSIS OF [place] 06/11/2017 MODE SCHILLING FACC, ALI FACP CCDS Ot R06.09 OTHER FORMS OF DYSPNEA 06/11/2017 MODE SCHILLING FACC, ALI FACP CCDS Ot R07.89 OTHER CHEST PAIN 06/17/2017 MODE SCHILLING FACC, ALI FACP CCDS Ot I25.10 ATHSCL HEART DISEASE OF [place] CORONARY 06/17/2017 MODE SCHILLING FACC, ALI FACP CCDS Ot I25.10 ATHSCL HEART DISEASE OF [place] CORONARY 06/17/2017 MODE SCHILLING FACC, ALI FACP CCDS Ot I25.10 ATHSCL HEART DISEASE OF [place] CORONARY Procedures Code Description Performed By Performed On [facility] 01/20/2013 32742 XRAY CHEST 2 VIEW 03/29/2013 70098 H PYLORI (IN-HOUSE) 04/05/2013 83505 ROUTINE VENIPUNCTURE 06/14/2013 [id number] GFR CALC (RESULT ONLY) 06/14/2013 87947 CMP 06/14/2013 43108 LIPID PANEL 06/14/2013 84209 TSH 06/14/2013 75011 ROUTINE VENIPUNCTURE 07/30/2013 [id number] GFR CALC (RESULT ONLY) 07/30/2013 82584 CMP 07/30/2013 45249 LIPID PANEL 07/30/2013 60719 A1C (IN-HOUSE) 09/28/2013 05398 ROUTINE VENIPUNCTURE 01/12/2014 [id number] GFR CALC (RESULT ONLY) 01/12/2014 13101 CMP 01/12/2014 01546 LIPID PANEL 01/12/2014 75240 ROUTINE VENIPUNCTURE 06/09/2014 [id number] GFR CALC (RESULT ONLY) 06/09/2014 22006 CMP 06/09/2014 05351 LIPID PANEL 06/09/2014 47626 XRAY KNEE LEFT, 1 OR 2 VIEWS 08/24/2014 61132 A1C (IN-HOUSE) 08/24/2014 93598 GLUCOSE FINGER STICK 08/24/2014 Results Test Result Range Complete blood count (CBC) with automated white blood cell (WBC) differential - 01/14/17 12:05 Blood leukocytes automated count (number/volume) 5.3 10*3/uL 4.3-11.0 Blood erythrocytes automated count (number/volume) 4.19 10*6/uL 4.35-5.85 Venous blood hemoglobin measurement (mass/volume) 11.0 g/dL 11.5-16.0 Blood hematocrit (volume fraction) 35 % 35-52 Automated erythrocyte mean corpuscular volume 82 [foz_us] 80-99 Automated erythrocyte mean corpuscular hemoglobin (mass per erythrocyte) 26 pg 25-34 Automated erythrocyte mean corpuscular hemoglobin concentration measurement ( mass/volume) 32 g/dL 32-36 Automated erythrocyte distribution width ratio 15.6 % 10.0-14.5 Automated blood platelet count (count/volume) 274 10*3/uL 130-400 Automated blood platelet mean volume measurement 10.4 [foz_us] 7.4-10.4 Automated blood neutrophils/100 leukocytes 52 % 42-75 Automated blood lymphocytes/100 leukocytes 36 % 12-44 Blood monocytes/100 leukocytes 9 % 0-12 Automated blood eosinophils/100 leukocytes 3 % 0-10 Automated blood basophils/100 leukocytes 1 % 0-10 Blood neutrophils automated count (number/volume) 2.7 10*3 1.8-7.8 Blood lymphocytes automated count (number/volume) 1.9 10*3 1.0-4.0 Blood monocytes automated count (number/volume) 0.5 10*3 0.0-1.0 Automated eosinophil count 0.1 10*3/uL 0.0-0.3 Automated blood basophil count (count/volume) 0.1 10*3/uL 0.0-0.1 Methicillin resistant Staphylococcus aureus (MRSA) screening culture - 12:05 Methicillin resistant Staphylococcus aureus (MRSA) screening culture NEG NRG Capillary blood glucose measurement by glucometer (mass/volume) - 01/16/17 08: 53 Capillary blood glucose measurement by glucometer (mass/volume) 87 mg/dL 70-110 Encounters ACCT No. Visit Date/Time Discharge Status Pt. Type Provider Facility Loc./Unit Complaint [id number] 08/24/2014 08:24:00 08/24/2014 23:59:59 CLS Outpatient TOSHIA POPE DO [id number] 06/22/2014 08:38:00 06/22/2014 23:59:59 CLS Outpatient ELLEN DISLA APRN [id number] 01/12/2014 10:12:00 01/12/2014 23:59:59 CLS Outpatient ELLEN DISLA APRN [id number] 10/06/2013 08:17:00 10/06/2013 23:59:59 CLS Outpatient ELLEN DISLA APRN [id number] 09/28/2013 10:25:00 09/28/2013 23:59:59 CLS Outpatient TOSHIA POPE DO [id number] 09/06/2013 13:55:00 09/06/2013 23:59:59 CLS Outpatient TOSHIA POPE DO [id number] 07/30/2013 08:23:00 07/30/2013 23:59:59 CLS Outpatient TOSHIA POPE DO [id number] 07/08/2013 12:47:00 07/08/2013 23:59:59 CLS Outpatient TOSHIA POPE DO [id number] 06/14/2013 07:58:00 06/14/2013 23:59:59 CLS Outpatient ELLEN DISLA APRN [id number] 06/07/2013 12:54:00 06/07/2013 23:59:59 CLS Outpatient TOSHIA POPE DO [id number] 04/05/2013 16:56:00 04/05/2013 23:59:59 CLS Outpatient TOSHIA POPE DO [id number] 03/23/2013 08:38:00 03/23/2013 23:59:59 CLS Outpatient TOSHIA POPE DO [id number] 03/01/2013 09:26:00 03/01/2013 23:59:59 CLS Outpatient TOSHIA POPE DO [id number] 01/20/2013 14:35:00 01/20/2013 23:59:59 CLS Outpatient ELLEN DISLA APRN [id number] 08/17/2012 16:36:00 08/17/2012 23:59:59 CLS Outpatient ELLEN DISLA APRN [id number] 12/30/2011 12:10:00 12/30/2011 23:59:59 CLS Outpatient [id number] 11/19/2012 13:52:00 Document Registration [id number] 11/02/2012 17:33:00 Document Registration [id number] 10/26/2012 17:00:00 Document Registration [id number] 10/22/2012 16:09:00 Document Registration [id number] 09/18/2012 14:56:00 Document Registration [id number] 05/20/2017 07:04:00 05/20/2017 23:59:59 CLS Outpatient PAZ COELLO MD, FACC, FACP CCDS [facility] CARD CHEST DISCOMFORT R07.89 [id number] 04/23/2017 14:30:00 04/23/2017 23:59:59 CLS Preadmit PAZ COELLO MD, FACC, FACP CCDS [facility] RAD CHEST DISCOMFORT R07.89 [id number] 01/16/2017 08:53:00 01/16/2017 14:55:00 DIS Outpatient ERIC GLORIA DO [facility] SDC UMBILICAL HERNIA [id number] 01/14/2017 11:32:00 01/14/2017 13:26:00 DIS Outpatient ERIC GLORIA DO [facility] PREOP UMBILICAL HERNIA [id number] 11/14/2016 06:44:00 11/14/2016 10:08:00 DIS Outpatient ERIC GLORIA DO [facility] ENDO OCCULT POSITIVE STOOLS [id number] 11/11/2016 05:42:00 11/11/2016 11:30:00 DIS Outpatient ERIC GLORIA DO [facility] PREOP OCCULT POSITIVE STOOLS [id number] 01/19/2016 10:23:00 01/19/2016 23:59:59 CLS Outpatient YAN LARIOS DO [facility] RAD BAUER,COPD,ASTHMA [id number] 07/07/2015 10:01:00 07/07/2015 23:59:59 CLS Outpatient MODE SCHILLING FACC, PAZ FACP CCDS [facility] CARD CAD,COPD, CAROTID ARTERY NARROWING [id number] 07/04/2015 10:52:00 07/04/2015 23:59:59 CLS Outpatient MODE SCHILLING FACC, PAZ DEE CCDS [facility] CARD CAD,COPD [id number] 02/23/2015 08:58:00 02/23/2015 23:59:59 CLS Outpatient ERIC GLORIA DO [facility] RAD INCOMPLETE COLONOSCOPY [id number] 01/31/2015 11:46:00 01/31/2015 15:00:00 DIS Outpatient ERIC GLORIA DO [facility] SDC HEMOCULT POSITIVE STOOLS [id number] 01/26/2015 05:53:00 01/26/2015 23:59:59 CLS Outpatient ERIC GLORIA DO [facility] PREOP HEMOCULT POSITIVE STOOLS [id number] 06/06/2014 11:37:00 06/06/2014 23:59:59 CLS Outpatient YAN LARIOS DO [facility] RT DYPNEA ON EXERCTION, PNEUMONIA [id number] 03/29/2013 07:36:00 03/29/2013 23:59:59 CLS Outpatient ELLEN DISLA [facility] RAD CHEST TIGHTNESS HX LUNG ABCESS [id number] 03/09/2013 06:45:00 03/09/2013 15:00:00 DIS Outpatient MODE SCHILLING FACC, PAZ FACP CCDS [facility] CATH EXCERTIONAL DYSPNEA [id number] 10/12/2012 11:28:00 10/12/2012 23:59:59 CLS Outpatient VIKI SAAVEDRA [facility] RAD DYSPNEA [id number] 01/17/2015 16:25:00 Document Registration [id number] 07/28/2012 16:07:00 Document Registration
[2017-06-29 17:16] LABS: BASOPHILS # (AUTO) 0.1 10^3/uL (0.0-0.1); BASOPHILS % (AUTO) 1 % (0-10); EOSINOPHILS # (AUTO) 0.1 10^3/uL (0.0-0.3); EOSINOPHILS % (AUTO) 2 % (0-10); HEMATOCRIT 37 % (35-52); HEMOGLOBIN 11.7 G/DL (11.5-16.0); LYMPHOCYTES # (AUTO) 2.2 X 10^3 (1.0-4.0); LYMPHOCYTES % (AUTO) 36 % (12-44); MEAN CORPUSCULAR HEMOGLOBIN 26 PG (25-34); MEAN CORPUSCULAR HGB CONC 32 G/DL (32-36); MEAN CORPUSCULAR VOLUME 81 FL (80-99); MONOCYTES # (AUTO) 0.4 X 10^3 (0.0-1.0); MONOCYTES % (AUTO) 7 % (0-12); NEUTROPHILS # (AUTO) 3.3 X 10^3 (1.8-7.8); NEUTROPHILS % (AUTO) 54 % (42-75); PLATELET COUNT 356 10^3/uL (130-400); RED CELL DISTRIBUTION WIDTH 14.8 % (10.0-14.5)
[2017-06-29 17:32] LABS: BILIRUBIN,URINE NEGATIVE (NEGATIVE); CLARITY,URINE CLEAR; COLOR,URINE YELLOW; GLUCOSE, URINE (UA) NEGATIVE (NEGATIVE); KETONES,URINE 1+ (NEGATIVE); LEUKOCYTE ESTERASE ,URINE 3+ (NEGATIVE); NITRITE,URINE NEGATIVE (NEGATIVE); PH,URINE 6 (5-9); PROTEIN,URINE NEGATIVE (NEGATIVE); UROBILINOGEN,URINE NORMAL (NORMAL)
[2017-06-29 17:36] LABS: ALANINE AMINOTRANSFERASE 11 U/L (0-55); ALBUMIN 4.6 GM/DL (3.2-4.5); ALKALINE PHOSPHATASE 51 U/L (40-136); BILIRUBIN,TOTAL 0.4 MG/DL (0.1-1.0); BUN/CREATININE RATIO 16; CALCIUM 9.5 MG/DL (8.5-10.1); CARBON DIOXIDE 20 MMOL/L (21-32); CHLORIDE 101 MMOL/L (98-107); CREATININE SERUM 0.77 MG/DL (0.60-1.30); GFR ESTIMATED > 60; GLUCOSE 86 MG/DL (70-105); POTASSIUM 4.3 MMOL/L (3.6-5.0); SODIUM 136 MMOL/L (135-145); TOTAL PROTEIN 7.8 GM/DL (6.4-8.2)
[2017-06-29] MEDS ORDERED: NS IV 1000 ML 1,000 ML IV ONE (17:43)
[2017-06-29 17:45] LABS: BACTERIA,URINE FEW /HPF
--- NOTE | 2017-06-29 17:45 | ED General ---
General Chief Complaint: Glucose Problems Stated Complaint: HIGH BLOOD SUGAR Nursing Triage Note: c/o elevated blood sugar. States glucometer was reading over 200. Nursing Sepsis Screen: No Definite Risk Source of Information: Patient Exam Limitations: No Limitations History of Present Illness Date Seen by Provider: Jun 29, 2017 Time Seen by Provider: 17:30 Initial Comments Here with report of blood sugars that have been up and down over the last several days. Also with intermittent diarrhea. She believes diarrhea is related to her metformin. Currently this is a only blood sugar control medicine. She is at max dose and they're consider moving to insulin per the patient and her . She has appointment and further work 26. Blood sugar at home was over 300 over a few hours. Blood sugar 86 on arrival here. Timing/Duration: 4-5 Days Severity: Moderate Modifying Factors: worse with Eating, improves with Medication Associated Systoms: No Cough, No Fever/Chills, No Nausea/Vomiting, No Shortness of Air, Weakness Allergies and Home Medications Allergies Coded Allergies: Sulfa (Sulfonamide Antibiotics) (Verified Allergy, Intermediate, 01/14/17) Home Medications Aspirin 81 Mg Tabec, 81 MG PO DAILY, (Reported) Budesonide/Formoterol Fumarate 10.2 Gm Hfa.aer.ad, 2 PUFF IH PRN, (Reported) Cetirizine HCl 10 Mg Tablet, 10 MG PO DAILY, (Reported) Docusate Sodium 100 Mg Capsule, 100 MG PO BID, #60 Prescribed by: ERIC GLORIA on 01/16/17 1122 Hydrocodone Bit/Acetaminophen 1 Each Tablet, 1 TAB PO Q4H PRN, #30 Ref 0 Prescribed by: ERIC GLORIA on 01/16/17 1122 Ipratropium/Albuterol Sulfate 3 Ml Ampul.neb, 3 ML IH QID, (Reported) Metformin HCl 500 Mg Tablet, 1,250 MG PO AM, (Reported) Metformin HCl 500 Mg Tablet, 750 MG PO PM, (Reported) Omeprazole 40 Mg Capsule.dr, 40 MG PO DAILY, (Reported) Pravastatin Sodium 20 Mg Tablet, 20 MG PO DAILY, (Reported) Tiotropium [place] 1 Inh Aerp, 1 INH IH DAILY, (Reported) Constitutional: see HPI EENTM: no symptoms reported Respiratory: no symptoms reported Cardiovascular: No chest pain, No edema Gastrointestinal: diarrhea, No nausea, No vomiting Genitourinary: dysuria Musculoskeletal: no symptoms reported All Other Systems Reviewed Negative Unless Noted: Yes Past Ndplmsm-Hivbxf-Dnxsvs Hx Patient Social History Alcohol Use: Denies Use Recreational Drug Use: No Smoking Status: Former Smoker Recent Foreign Travel: No Contact w/Someone Who Travel: No Recent Infectious Disease Expo: No Recent Hopitalizations: No Immunizations Up To Date Date of Pneumonia Vaccine: September 10, 2016 Date of Influenza Vaccine: Feb 19, 2016 Seasonal Allergies Seasonal Allergies: Yes Surgeries History of Surgeries: Yes (RIGHT THORACOTOMY) Surgeries: Tubal Ligation Respiratory History of Respiratory Disorde: Yes (HX OF LUNG ABCESS) Respiratory Disorders: Asthma, Pneumonia, Chronic Bronchitis, COPD Cardiovascular History of Cardiac Disorders: Yes Cardiac Disorders: High Cholesterol Neurological History of Neurological Disord: Yes Neurological Disorders: Headaches /Migraines Reproductive System Hx Reproductive Disorders: No Sexually Transmitted Disease: No HIV/AIDS: No DERRICK HAND History: Tubal Ligation Genitourinary Genitourinary Disorders: UTI-Chronic Gastrointestinal History of Gastrointestinal Di: Yes Gastrointestinal Disorders: Gastroesophageal Reflux, Chronic Diarrhea Musculoskeletal History of Musculoskeletal Dis: Yes (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) Musculoskeletal Disorders: Foot Drop Endocrine History of Endocrine Disorders: Yes HEENT Loss of Vision: Bilateral Hearing Impairment: Denies Cancer History of Cancer: No Psychosocial History of Psychiatric Problem: No Behavioral Health Disorders: Anxiety Integumentary History of Skin or Integumenta: No Blood Transfusions History of Blood Disorders: No Adverse Reaction to a Blood Tr: No (N/A) Reviewed Nursing Assessment Reviewed/Agree w Nursing PMH: Yes Family Medical History Significant Family History: No Pertinent Family Hx Physical Exam Vital Signs Vital Signs - First Documented 06/29/17 16:20 Temp 97.3 Pulse 76 Resp 16 B/P (MAP) 123/80 (94) Pulse Ox 98 O2 Delivery Room Air Capillary Refill : Less Than 3 Seconds General Appearance: No Apparent Distress, WD/WN HEENT: PERRL/EOMI, Pharynx Normal Neck: Non Tender, Supple Respiratory: Lungs Clear, Normal Breath Sounds Cardiovascular: Regular Rate, Rhythm, No Murmur Gastrointestinal: Non Tender, Soft Back: Normal Inspection, No CVA Tenderness, No Vertebral Tenderness Extremity: Normal Range of Motion, Non Tender Neurologic/Psychiatric: Alert, Oriented x3 Skin: Normal Color, Warm/Dry Progress/Results/Core Measures Suspected Sepsis Recent Fever Within 48 Hours: No Infection Criteria Present: Suspected New Infection New/Unexplained Altered Menta: No Sepsis Screen: No Definite Risk Sepsis Diagnosis: SIRS Temperature:97.3 Pulse: 76 Respiratory Rate: 16 Laboratory Tests 06/29/17 17:05: White Blood Count 6.0 Blood Pressure 123 /80 Mean: 94 Laboratory Tests 06/29/17 17:05: Creatinine 0.77, Platelet Count 356, Total Bilirubin 0.4 Results/Orders Lab Results Laboratory Tests Test 06/29/17 17:05 06/29/17 17:25 Range/Units White Blood Count 6.0 4.3-11.0 10^3/uL Red Blood Count 4.50 4.35-5.85 10^6/uL Hemoglobin 11.7 11.5-16.0 G/DL Hematocrit 37 35-52 % Mean Corpuscular Volume 81 80-99 FL Mean Corpuscular Hemoglobin 26 25-34 PG Mean Corpuscular Hemoglobin Concent 32 32-36 G/DL Red Cell Distribution Width 14.8 H 10.0-14.5 % Platelet Count 356 130-400 10^3/uL Mean Platelet Volume 10.0 7.4-10.4 FL Neutrophils (%) (Auto) 54 42-75 % Lymphocytes (%) (Auto) 36 12-44 % Monocytes (%) (Auto) 7 0-12 % Eosinophils (%) (Auto) 2 0-10 % Basophils (%) (Auto) 1 0-10 % Neutrophils # (Auto) 3.3 1.8-7.8 X 10^3 Lymphocytes # (Auto) 2.2 1.0-4.0 X 10^3 Monocytes # (Auto) 0.4 0.0-1.0 X 10^3 Eosinophils # (Auto) 0.1 0.0-0.3 10^3/uL Basophils # (Auto) 0.1 0.0-0.1 10^3/uL Sodium Level 136 135-145 MMOL/L Potassium Level 4.3 3.6-5.0 MMOL/L Chloride Level 101 98-107 MMOL/L Carbon Dioxide Level 20 L 21-32 MMOL/L Anion Gap 15 H 5-14 MMOL/L Blood Urea Nitrogen 12 7-18 MG/DL Creatinine 0.77 0.60-1.30 MG/DL Estimat Glomerular Filtration Rate > 60 BUN/Creatinine Ratio 16 Glucose Level 86 70-105 MG/DL Calcium Level 9.5 8.5-10.1 MG/DL Total Bilirubin 0.4 0.1-1.0 MG/DL Aspartate Amino Transf (AST/SGOT) 12 5-34 U/L Alanine Aminotransferase (ALT/SGPT) 11 0-55 U/L Alkaline Phosphatase 51 40-136 U/L Total Protein 7.8 6.4-8.2 GM/DL Albumin 4.6 H 3.2-4.5 GM/DL Urine Color YELLOW Urine Clarity CLEAR Urine pH 6 5-9 Urine Specific [place] 1.020 1.016-1.022 Urine Protein NEGATIVE NEGATIVE Urine Glucose (UA) NEGATIVE NEGATIVE Urine Ketones 1+ H NEGATIVE Urine Nitrite NEGATIVE NEGATIVE Urine Bilirubin NEGATIVE NEGATIVE Urine Urobilinogen NORMAL NORMAL MG/DL Urine Leukocyte Esterase 3+ H NEGATIVE Urine RBC (Auto) 2+ H NEGATIVE Urine RBC 2-5 H /HPF Urine WBC 10-25 H /HPF Urine Squamous Epithelial Cells 10-25 H /HPF Urine Crystals NONE /LPF Urine Bacteria FEW H /HPF Urine Casts NONE /LPF Urine Mucus SMALL H /LPF Urine Culture Indicated YES My Orders Orders - ANIYAH CORBETT MD Ns Iv 1000 Ml (Sodium Chloride 0.9%) (06/29/17 17:43) Medications Given in ED Current Medications Medications Dose Ordered Sig/Eris Route Start Time Stop Time Status Last Admin Dose Admin Sodium Chloride 1,000 ml @ 0 mls/hr Q0M ONCE IV 06/29/17 17:43 06/29/17 17:44 DC 06/29/17 18:04 1,000 MLS/HR Vital Signs/I&O Vital Sign - Last 12Hours 06/29/17 16:20 Temp 97.3 Pulse 76 Resp 16 B/P (MAP) 123/80 (94) Pulse Ox 98 O2 Delivery Room Air Capillary Refill : Less Than 3 Seconds Blood Pressure Mean: 94 Point of Care Testing Finger Stick Blood Glucose: 89 Progress Note : Progress Note Seen and evaluated. IV, labs and UA ordered. Normal saline 1 L bolus. Monitor patient. Blood sugar by fingerstick his less than 100. We will recheck and labs. 1845: Keflex 500 mg by mouth ordered for questionable urinary tract infection. Given her previous symptoms, this seems a reasonable option and this was discussed with patient and family who agree. Discharge home with return precautions. Patient verbalize understanding of instructions and agreement with plan. Departure Impression Impression: Primary Impression: Urinary tract infection Qualified Codes: N30.00 - Acute cystitis without hematuria Additional Impression: High blood sugar Disposition: HOME, SELF-CARE Condition: Improved Departure-Patient Inst. Decision time for Depature: 18:49 Referrals: TOSHIA POPE DO (PCP) Primary Care Physician ELLEN DISLA (Family) Primary Care Physician Patient Instructions: Diabetes Type 2 (DC), Urinary Tract Infection, Adult (DC) Add. Discharge Instructions: All discharge instructions reviewed with patient and/or family. Voiced understanding. Take medications as directed. Follow-up with your doctor tomorrow. Keep splint with Dr. Orantes tomorrow. Return for worse pain, fever, vomiting, weakness, breathing problems or other concerns as needed. Scripts Cephalexin (Cephalexin) 500 Mg Tablet 500 MG PO BID, #13 TAB 0 Refills Prov: ANIYAH CORBETT MD 06/29/17 ANIYAH CORBETT MD Jun 29, 2017 17:45
[2017-06-29] MEDS ORDERED: CEPHALEXIN 250 MG (KEFLEX) CAP PO STA (18:40)
[2017-06-29] MEDS ORDERED: CEPH500T PO (18:54)
[2017-06-29] MEDS ORDERED: KCL 10 MEQ TAB (MICRO K) PO ONE (19:10)
[2017-06-29 19:17] VITALS: BP 137/80
== END 2017-06-29 19:17 | disposition home or self-care (01) ==
LOC: EDUNIT# 16:11 → ER 16:12
DX: N39.0 Urinary tract infection, site not specified (principal); R73.09 Other abnormal glucose; F41.9 Anxiety disorder, unspecified; K21.9 Gastro-esophageal reflux disease without esophagitis; E78.00 Pure hypercholesterolemia, unspecified; J44.9 Chronic obstructive pulmonary disease, unspecified; G43.909 Migraine, unspecified, not intractable, without status migrainosus; Z87.01 Personal history of pneumonia (recurrent); Z98.51 Tubal ligation status; Z87.891 Personal history of nicotine dependence; Z79.84 Long term (current) use of oral hypoglycemic drugs; Z79.82 Long term (current) use of aspirin; Z88.2 Allergy status to sulfonamides; Z86.12 Personal history of poliomyelitis
CPT/HCPCS: 36415; 80053; 81000; 82962; 85025; 87077; 87088; 99283

== ENCOUNTER 2018-05-11 11:10 | Emergency (ER) | payer MEDICARE, MEDICAID ==
[~2018-05-11] VITALS: Ht 170.2 cm; Wt 59.0 kg
[~2018-05-11 11:10] MED LIST changes: +CEPH500T PO; +METF-397 PO; -METF500T4 PO
[2018-05-11] MEDS ORDERED: RT-ALBUTEROL/IPRATROPIUM 3 ML (DUONEB) VIAL ONE (11:22)
[2018-05-11] MEDS ORDERED: RT-ALBUTEROL SULF 2.5 MG/3 ML PRE-MIX VIAL ONE (11:30)
[2018-05-11] MEDS ORDERED: RT-ALBUTEROL/IPRATROPIUM 3 ML (DUONEB) VIAL INH ONE (11:30)
[2018-05-11] MEDS ORDERED: RT-ALBUTEROL SULF 2.5 MG/3 ML PRE-MIX VIAL INH STA (11:32)
[2018-05-11 11:38] LABS: BASOPHILS % (AUTO) 0 % (0-10); EOSINOPHILS % (AUTO) 0 % (0-10); HEMATOCRIT 38 % (35-52); LYMPHOCYTES % (AUTO) 11 % (12-44); MEAN CORPUSCULAR HEMOGLOBIN 26 PG (25-34); MEAN CORPUSCULAR HGB CONC 32 G/DL (32-36); MEAN CORPUSCULAR VOLUME 80 FL (80-99); MEAN PLATELET VOLUME 9.6 FL (7.4-10.4); MONOCYTES # (AUTO) 0.9 X 10^3 (0.0-1.0); MONOCYTES % (AUTO) 10 % (0-12); NEUTROPHILS % (AUTO) 79 % (42-75); PLATELET COUNT 357 10^3/uL (130-400); RED BLOOD COUNT 4.71 10^6/uL (4.35-5.85); RED CELL DISTRIBUTION WIDTH 16.6 % (10.0-14.5); WHITE BLOOD COUNT 8.9 10^3/uL (4.3-11.0)
[2018-05-11 11:49] LABS: INR 1.2 (0.8-1.4); PROTHROMBIN TIME PATIENT 14.9 SEC (12.2-14.7)
[2018-05-11 11:57] LABS: ALANINE AMINOTRANSFERASE 42 U/L (0-55); ALBUMIN 4.9 GM/DL (3.2-4.5); ALKALINE PHOSPHATASE 76 U/L (40-136); BILIRUBIN,TOTAL 0.8 MG/DL (0.1-1.0); BUN/CREATININE RATIO 15; CALCIUM 9.8 MG/DL (8.5-10.1); CARBON DIOXIDE 19 MMOL/L (21-32); CHLORIDE 100 MMOL/L (98-107); CREATININE SERUM 0.81 MG/DL (0.60-1.30); GFR ESTIMATED > 60; GLUCOSE 132 MG/DL (70-105); POTASSIUM 3.3 MMOL/L (3.6-5.0); SODIUM 136 MMOL/L (135-145); TOTAL PROTEIN 8.8 GM/DL (6.4-8.2)
--- NOTE | 2018-05-11 12:01 | Diagnostic Imaging Report ---
EXAM: CHEST 1 VIEW, AP/PA ONLY INDICATION: Shortness of air. COMPARISON: Chest radiographs 01/19/2016. FINDINGS: Normal heart size and central pulmonary vascularity. Large esophageal hiatal hernia is stable. Surgical clips overlying the right midlung. No focal pulmonary opacity, pleural effusion or pneumothorax. Calcified aorta. No acute osseous findings. IMPRESSION: 1. No acute cardiopulmonary findings. 2. Stable, large esophageal hiatal hernia. Dictated by: Dictated on workstation # [id number]
[2018-05-11] MEDS ORDERED: NS IV 1000 ML 1,000 ML IV ONE (12:10)
[2018-05-11] MEDS ORDERED: methylPREDNISolone 125 MG (Solu-MEDROL) VIAL IV STA (12:12)
--- NOTE | 2018-05-11 12:41 | ED Respiratory ---
General Chief Complaint: Respiratory Problems Stated Complaint: SOB;WEAKNESS Nursing Triage Note: PT PRESENTS TO ER WITH COMPLANT OF SOB. STATES IT HAS BEEN WORSENING SINCE FRIDAY AND HER HOME ALBUTEROL TREATMENTS HAVE NOT BEEN HELPING. Source: patient Exam Limitations: no limitations History of Present Illness Date Seen by Provider: May 11, 2018 Time Seen by Provider: 11:21 Initial Comments Here with complaint of cough and shortness of breath. This is been going on for a couple days. She's been using her albuterol treatments at home and that has not helped. Denies vomiting but does have some diarrhea. Does complain of fairly significant runny nose. Does not smoke but did for many years. Does see Dr. De Souza for pulmonology. Timing/Duration: week Severity: moderate Prior Episodes/Possible Cause: occasional episodes Modifying Factors: Improves With Albuterol Nebulizer, Improves With Rest Associated Symptoms: No chest pain/soreness; cough; No fever/chills; nasal congestion, nasal drainage, shortness of breath Allergies and Home Medications Allergies Coded Allergies: Sulfa (Sulfonamide Antibiotics) (Verified Allergy, Intermediate, 01/14/17) Home Medications Aspirin 81 Mg Tabec, 81 MG PO DAILY, (Reported) Budesonide/Formoterol Fumarate 10.2 Gm Hfa.aer.ad, 2 PUFF IH PRN, (Reported) Cephalexin 500 Mg Tablet, 500 MG PO BID Prescribed by: ANIYAH CORBETT on 06/29/17 185 Cetirizine HCl 10 Mg Tablet, 10 MG PO DAILY, (Reported) Docusate Sodium 100 Mg Capsule, 100 MG PO BID Prescribed by: ERIC GLORIA on 01/16/17 112 Hydrocodone Bit/Acetaminophen 1 Each Tablet, 1 TAB PO Q4H PRN Prescribed by: ERIC GLORIA on 01/16/17 1122 Ipratropium/Albuterol Sulfate 3 Ml Ampul.neb, 3 ML IH QID, (Reported) Metformin HCl 500 Mg Tablet, 1,250 MG PO AM, (Reported) Metformin HCl 500 Mg Tablet, 750 MG PO PM, (Reported) Omeprazole 40 Mg Capsule.dr, 40 MG PO DAILY, (Reported) Pravastatin Sodium 20 Mg Tablet, 20 MG PO DAILY, (Reported) Tiotropium [place] 1 Inh Aerp, 1 INH IH DAILY, (Reported) Patient Home Medication List Home Medication List Reviewed: Yes Review of Systems Review of Systems Constitutional: see HPI; No chills, No fever EENTM: nose congestion; No throat pain Respiratory: short of breath; No wheezing Cardiovascular: No chest pain, No edema Gastrointestinal: No abdominal pain, No nausea, No vomiting Genitourinary: no symptoms reported Musculoskeletal: no symptoms reported Skin: no symptoms reported All Other Systems Reviewed Negative Unless Noted: Yes Past Ijuvtxi-Rziqih-Jgtbbx Hx Past Med/Social Hx: Reviewed Nursing Past Med/Soc Hx Patient Social History Alcohol Use: Denies Use Recreational Drug Use: No Smoking Status: Former Smoker Recent Foreign Travel: No Contact w/Someone Who Travel: No Recent Infectious Disease Expo: No Recent Hopitalizations: No Immunizations Up To Date Date of Pneumonia Vaccine: September 10, 2016 Date of Influenza Vaccine: Feb 19, 2016 Seasonal Allergies Seasonal Allergies: Yes Past Medical History Surgeries: Yes (RIGHT THORACOTOMY) Tubal Ligation Respiratory: Yes (HX OF LUNG ABCESS) Asthma, Pneumonia, Chronic Bronchitis, COPD Cardiac: Yes High Cholesterol Neurological: Yes Headaches /Migraines Reproductive Disorders: No 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 History: Tubal Ligation Sexually Transmitted Disease: No HIV/AIDS: No UTI-Chronic Gastrointestinal: Yes Gastroesophageal Reflux, Chronic Diarrhea 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 0.2oz. 58.405409nh; 22.1 BMI Method:Stated General Appearance: WD/WN, no apparent distress HEENT: PERRL/EOMI, pharynx normal Neck: full range of motion, supple Respiratory: no accessory muscle use, wheezing, expiration Cardiovascular: no murmur, tachycardia Gastrointestinal: non tender, soft Extremities: non-tender, normal inspection Neurologic/Psychiatric: alert, oriented x 3 Skin: normal color, warm/dry Focused Exam Lactate Level 05/11/18 11:23: Lactic Acid Level 1.18 Lactic Acid Level Laboratory Tests Test 05/11/18 11:23 Lactic Acid Level 1.18 MMOL/L (0.50-2.00) Progress/Results/Core Measures Suspected Sepsis Recent Fever Within 48 Hours: No Infection Criteria Present: None New/Unexplained Altered Menta: No Sepsis Screen: No Definite Risk SIRS Temperature:98.4 Pulse: 110 Respiratory Rate: 20 Laboratory Tests 05/11/18 11:23: White Blood Count 8.9 Blood Pressure 134 /88 Mean: 103 05/11/18 11:23: Lactic Acid Level 1.18 Laboratory Tests 05/11/18 11:23: Creatinine 0.81, INR Comment 1.2, Platelet Count 357, Total Bilirubin 0.8 Results/Orders Lab Results Laboratory Tests Test 05/11/18 11:23 Range/Units White Blood Count 8.9 4.3-11.0 10^3/uL Red Blood Count 4.71 4.35-5.85 10^6/uL Hemoglobin 12.0 11.5-16.0 G/DL Hematocrit 38 35-52 % Mean Corpuscular Volume 80 80-99 FL Mean Corpuscular Hemoglobin 26 25-34 PG Mean Corpuscular Hemoglobin Concent 32 32-36 G/DL Red Cell Distribution Width 16.6 H 10.0-14.5 % Platelet Count 357 130-400 10^3/uL Mean Platelet Volume 9.6 7.4-10.4 FL Neutrophils (%) (Auto) 79 H 42-75 % Lymphocytes (%) (Auto) 11 L 12-44 % Monocytes (%) (Auto) 10 0-12 % Eosinophils (%) (Auto) 0 0-10 % Basophils (%) (Auto) 0 0-10 % Neutrophils # (Auto) 7.0 1.8-7.8 X 10^3 Lymphocytes # (Auto) 1.0 1.0-4.0 X 10^3 Monocytes # (Auto) 0.9 0.0-1.0 X 10^3 Eosinophils # (Auto) 0.0 0.0-0.3 10^3/uL Basophils # (Auto) 0.0 0.0-0.1 10^3/uL Prothrombin Time 14.9 H 12.2-14.7 SEC INR Comment 1.2 0.8-1.4 Activated Partial Thromboplast Time 44 H 24-35 SEC Sodium Level 136 135-145 MMOL/L Potassium Level 3.3 L 3.6-5.0 MMOL/L Chloride Level 100 98-107 MMOL/L Carbon Dioxide Level 19 L 21-32 MMOL/L Anion Gap 17 H 5-14 MMOL/L Blood Urea Nitrogen 12 7-18 MG/DL Creatinine 0.81 0.60-1.30 MG/DL Estimat Glomerular Filtration Rate > 60 BUN/Creatinine Ratio 15 Glucose Level 132 H 70-105 MG/DL Lactic Acid Level 1.18 0.50-2.00 MMOL/L Calcium Level 9.8 8.5-10.1 MG/DL Corrected Calcium 8.5-10.1 MG/DL Total Bilirubin 0.8 0.1-1.0 MG/DL Aspartate Amino Transf (AST/SGOT) 37 H 5-34 U/L Alanine Aminotransferase (ALT/SGPT) 42 0-55 U/L Alkaline Phosphatase 76 40-136 U/L Troponin I < 0.30 <0.30 NG/ML B-Type Natriuretic Peptide 104.2 H <100.0 PG/ML Total Protein 8.8 H 6.4-8.2 GM/DL Albumin 4.9 H 3.2-4.5 GM/DL Micro Results Microbiology 05/11/18 Influenza Types A,B Antigen (MALLIKA) - Final, Complete My Orders Orders - ANIYAH CORBETT MD Cbc With Automated Diff (05/11/18 11:22) Comprehensive Metabolic Panel (05/11/18 11:22) Blood Culture (05/11/18 11:22) Sputum Culture (05/11/18 11:22) Urinalysis (05/11/18 11:22) Urine Culture (05/11/18 11:22) Protime With Inr (05/11/18 11:22) Partial Thromboplastin Time (05/11/18 11:22) Chest 1 View, Ap/Pa Only (05/11/18 11:22) Saline Lock/Iv-Start (05/11/18 11:22) Ekg Tracing (05/11/18 11:22) Troponin I (05/11/18 11:22) Vital Signs Adult Sepsis Patie Q15M (05/11/18 11:22) O2 (05/11/18 11:22) Remove Rings In Anticipation O (05/11/18 11:22) Lactic Acid Analyzer (05/11/18 11:22) Influenza A And B Antigens (05/11/18 11:22) Albuterol/Ipra Inhalation Soln (Duoneb I (05/11/18 11:30) Svn Small Volume Nebulizer (05/11/18 11:22) BNP (05/11/18 11:22) Albuterol/Ipra Inhalation Soln (Duoneb I (05/11/18 11:22) Albuterol Pre-Mix Nebs (Rt) (Proventil (05/11/18 11:32) Svn Small Volume Nebulizer (05/11/18 11:32) Albuterol Pre-Mix Nebs (Rt) (Proventil (05/11/18 11:30) Saline Lock/Iv-Start (05/11/18 12:10) Ns Iv 1000 Ml (Sodium Chloride 0.9%) (05/11/18 12:10) Methylprednisolone Sod Succ (Solu-Medrol (05/11/18 12:12) Medications Given in ED Current Medications Medications Dose Ordered Sig/Eris Route Start Time Stop Time Status Last Admin Dose Admin Albuterol/ Ipratropium 3 ml ONCE ONCE INH 05/11/18 11:30 05/11/18 11:31 DC 05/11/18 11:28 3 ML Sodium Chloride 1,000 ml @ 0 mls/hr Q0M ONCE IV 05/11/18 12:10 05/11/18 12:11 DC 05/11/18 12:19 1,000 MLS/HR Vital Signs/I&O 05/11/18 05/11/18 05/11/18 11:28 11:31 11:36 Temp 98.4 Pulse 110 Resp 20 B/P (MAP) 134/88 (103) Pulse Ox 93 94 93 O2 Delivery Room Air Room Air Room Air Capillary Refill : Less Than 3 Seconds Blood Pressure Mean: 103 Progress Note : Progress Note Seen and evaluated. IV, labs, chest x-ray, blood cultures and lactic acid. EKG ordered for the tachycardia. Duo neb ordered. Repeat nebulizer treatment with albuterol 3. Solu-Medrol 125 mg IV ordered. Monitor patient. Overall improved after treatments. No indication for pneumonia. We will give Decadron 10 mg IV and she will continue prednisone outpatient pharmacy opens back up on Friday. Discharged home with return precautions. Patient verbalize understanding instructions and agreement with plan. Diagnostic Imaging Diagonstic Imaging: Xray Plain Films/CT/US/NM/MRI: chest Comments NAME: CLARISSE WASHINGTON [facility] REC#: [id number] PT STATUS: REG ER : 1950 PHYSICIAN: ANIYAH CORBETT MD ADMIT DATE: 05/11/18/ER Signed Date of Exam: 05/11/18 CHEST 1 VIEW, AP/PA ONLY EXAM: CHEST 1 VIEW, AP/PA ONLY INDICATION: Shortness of air. COMPARISON: Chest radiographs 01/19/2016. FINDINGS: Normal heart size and central pulmonary vascularity. Large esophageal hiatal hernia is stable. Surgical clips overlying the right midlung. No focal pulmonary opacity, pleural effusion or pneumothorax. Calcified aorta. No acute osseous findings. IMPRESSION: 1. No acute cardiopulmonary findings. 2. Stable, large esophageal hiatal hernia. Dictated by: Dictated on workstation # [id number] Dict: 05/11/18 1156 Trans: 05/11/18 1201 Interpreted by: MEGAN AYALA MD Electronically signed by: MEGAN AYALA MD 05/11/18 1201 Departure Impression Primary Impression: Upper respiratory infection Qualified Codes: J06.9 - Acute upper respiratory infection, unspecified Additional Impression: Bronchitis Disposition: 01 HOME, SELF-CARE Condition: Stable Departure-Patient Inst. Decision time for Depature: 15:11 Referrals: TOSHIA POPE DO (PCP) Primary Care Physician ELLEN DISLA (Family) Primary Care Physician Patient Instructions: Acute Bronchitis, Adult (DC) Add. Discharge Instructions: All discharge instructions reviewed with patient and/or family. Voiced understanding. Take medications as directed. Continue albuterol treatments at home every 4 hours as needed for cough and wheezing. Follow-up with your DrJennyfer in a few days for recheck. Return for worse pain, fever, vomiting, weakness, breathing problems or other concerns as needed. Continue other home meds as previously prescribed. Scripts Prednisone (Prednisone) 20 Mg Tab 40 MG PO DAILY, #6 TAB 0 Refills Prov: ANIYAH CORBETT MD 05/11/18 ANIYAH CORBETT MD May 11, 2018 12:41
[2018-05-11] MEDS ORDERED: PRD20T PO (15:13)
[2018-05-11] MEDS ORDERED: DEXAMETHASONE 10 MG/ML (DECADRON) 1 ML VIAL IV ONE (15:15)
[2018-05-11 15:40] VITALS: BP 115/67
== END 2018-05-11 15:40 | disposition home or self-care (01) ==
LOC: EDUNIT# 11:10 → ER 11:11
DX: J06.9 Acute upper respiratory infection, unspecified (principal); J44.9 Chronic obstructive pulmonary disease, unspecified; E78.00 Pure hypercholesterolemia, unspecified; K21.9 Gastro-esophageal reflux disease without esophagitis; F41.9 Anxiety disorder, unspecified; Z87.19 Personal history of other diseases of the digestive system; Z87.440 Personal history of urinary (tract) infections; Z88.2 Allergy status to sulfonamides; Z79.82 Long term (current) use of aspirin; Z79.84 Long term (current) use of oral hypoglycemic drugs; Z98.51 Tubal ligation status; Z87.891 Personal history of nicotine dependence; Z93.8 Other artificial opening status; Z87.01 Personal history of pneumonia (recurrent)
CPT/HCPCS: 36415; 71045; 80053; 83605; 83880; 84484; 85025; 85610; 85730; 87040; 87070; 87077; 87184; 87205; 87804; 94640

== ENCOUNTER → 2018-05-21 | Outpatient (CLI) | payer MEDICARE ==
[~2018-05-21] MED LIST changes: +PRD20T PO
[2018-05-21 10:42] LABS: ALANINE AMINOTRANSFERASE 8 U/L (0-55); ALBUMIN 3.8 GM/DL (3.2-4.5); ALKALINE PHOSPHATASE 66 U/L (40-136); BILIRUBIN,TOTAL 0.5 MG/DL (0.1-1.0); BUN/CREATININE RATIO 10; CALCIUM 8.7 MG/DL (8.5-10.1); CARBON DIOXIDE 26 MMOL/L (21-32); CHLORIDE 97 MMOL/L (98-107); CREATININE SERUM 0.68 MG/DL (0.60-1.30); GFR ESTIMATED > 60; GLUCOSE 125 MG/DL (70-105); POTASSIUM 3.3 MMOL/L (3.6-5.0); SODIUM 136 MMOL/L (135-145); TOTAL PROTEIN 7.3 GM/DL (6.4-8.2)
== END ==
LOC: LAB 09:57
PROVIDERS: ATTEND Internal Medicine Cardiovascular Disease
DX: E11.9 Type 2 diabetes mellitus without complications (principal)
CPT/HCPCS: 36415; 80053

== ENCOUNTER → 2018-05-21 | Outpatient (CLI) | payer MEDICARE ==
--- NOTE | 2018-05-21 12:33 | Diagnostic Imaging Report ---
PROCEDURE: CT chest without contrast. TECHNIQUE: Multiple contiguous axial images were obtained through the chest without the use of intravenous contrast. INDICATION: COPD and cough. No prior chest CT is available for comparison. No axillary lymphadenopathy is seen. There appears to be a small amount of fluid in the superior pericardial recess. No pleural fluid is identified. There are some coronary arterial calcifications present. Right upper lobe does show some surgical clips and some scarring. Lungs do show some hyperinflation suggestive of COPD. There is some parenchymal scarring in the lower lobes bilaterally as well. No discrete mass is seen. There is a very large hiatal hernia present. Upper abdomen is unremarkable. IMPRESSION: 1. Chronic pulmonary parenchymal changes. No acute infiltrate or mass is seen. 2. Large hiatal hernia. Dictated by: Dictated on workstation # [id number]
== END ==
LOC: RAD 10:01
PROVIDERS: ATTEND Nurse Practitioner Family
DX: J44.9 Chronic obstructive pulmonary disease, unspecified (principal); K44.9 Diaphragmatic hernia without obstruction or gangrene; J21.8 Acute bronchiolitis due to other specified organisms
CPT/HCPCS: 71250

== ENCOUNTER → 2018-05-26 | Outpatient (CLI) | payer MEDICARE ==
[2018-05-26 09:23] LABS: BUN/CREATININE RATIO 19; CALCIUM 8.5 MG/DL (8.5-10.1); CARBON DIOXIDE 24 MMOL/L (21-32); CHLORIDE 98 MMOL/L (98-107); CREATININE SERUM 0.72 MG/DL (0.60-1.30); GFR ESTIMATED > 60; GLUCOSE 110 MG/DL (70-105); MAGNESIUM 1.2 MG/DL (1.8-2.4); POTASSIUM 3.6 MMOL/L (3.6-5.0); SODIUM 135 MMOL/L (135-145)
== END ==
LOC: LAB 08:49
PROVIDERS: ATTEND Nurse Practitioner Family
DX: E87.6 Hypokalemia (principal)
CPT/HCPCS: 36415; 80048; 83735

== ENCOUNTER → 2018-06-23 | Outpatient (CLI) | payer MEDICARE ==
[2018-06-23 10:02] LABS: BUN/CREATININE RATIO 18; CALCIUM 8.9 MG/DL (8.5-10.1); CARBON DIOXIDE 22 MMOL/L (21-32); CHLORIDE 102 MMOL/L (98-107); CREATININE SERUM 0.68 MG/DL (0.60-1.30); GFR ESTIMATED > 60; GLUCOSE 112 MG/DL (70-105); MAGNESIUM 1.7 MG/DL (1.8-2.4); POTASSIUM 4.2 MMOL/L (3.6-5.0); SODIUM 134 MMOL/L (135-145)
== END ==
LOC: LAB 09:29
PROVIDERS: ATTEND Nurse Practitioner Family
DX: E83.42 Hypomagnesemia (principal)
CPT/HCPCS: 36415; 80048; 83735

== ENCOUNTER 2019-07-15 15:14 | Observation (INO) | payer MEDICARE ==
[~2019-07-15] VITALS: Ht 162 cm; Wt 58.1 kg
[~2019-07-15 15:14] MED LIST changes: -CETI10TA20 PO; +CETI10TA21 PO; +OMEP40CA27 PO; -OMEP40CA36 PO
--- NOTE | 2019-07-15 16:04 | ED Fall/Injury ---
General Chief Complaint: Trauma-Non Activation Stated Complaint: RIGHT HIP PAIN Nursing Triage Note: see triage Source: patient, EMS Exam Limitations: no limitations History of Present Illness Date Seen by Provider: Jul 15, 2019 Time Seen by Provider: 15:17 Initial Comments This 68-year-old woman presents to the emergency room via [facility] from her home where she fell and injured her right hip. She was getting up out of her chair to adjust the TV antenna when she felt a popping in her knee. Her knee "gave out" and she fell to the floor. She then had pain in the right hip and inguinal region. She was able to get up to her chair where she was found by EMS on their arrival. She denies any other injury or pain in any other area. Her problem with the knee "giving out" is a chronic problem. She denies any lightheadedness or dizziness contributing to the fall. She states she has not felt ill in any way recently. Location Injury Occurred: HOME Allergies and Home Medications Allergies Coded Allergies: Sulfa (Sulfonamide Antibiotics) (Verified Allergy, Intermediate, 01/14/17) Home Medications Aspirin 81 Mg Tabec, 81 MG PO DAILY, (Reported) Budesonide/Formoterol Fumarate 10.2 Gm Hfa.aer.ad, 2 PUFF IH PRN, (Reported) Cephalexin 500 Mg Tablet, 500 MG PO BID Prescribed by: ANIYAH CORBETT on 06/29/17 185 Cetirizine HCl 10 Mg Tablet, 10 MG PO DAILY, (Reported) Docusate Sodium 100 Mg Capsule, 100 MG PO BID Prescribed by: ERIC GLORIA on 01/16/17 1122 Hydrocodone Bit/Acetaminophen 1 Each Tablet, 1 TAB PO Q4H PRN Prescribed by: ERIC GLORIA on 01/16/17 1122 Ipratropium/Albuterol Sulfate 3 Ml Ampul.neb, 3 ML IH QID, (Reported) Metformin HCl 500 Mg Tablet, 1,250 MG PO AM, (Reported) Metformin HCl 500 Mg Tablet, 750 MG PO PM, (Reported) Omeprazole 40 Mg Capsule.dr, 40 MG PO DAILY, (Reported) Pravastatin Sodium 20 Mg Tablet, 20 MG PO DAILY, (Reported) Prednisone 20 Mg Tab, 40 MG PO DAILY Prescribed by: ANIYAH CORBETT on 05/11/18 1513 Tiotropium [place] 1 Inh Aerp, 1 INH IH DAILY, (Reported) Patient Home Medication List Home Medication List Reviewed: Yes Review of Systems Review of Systems Constitutional: no symptoms reported Eyes: No Symptoms Reported Ears, Nose, Mouth, Throat: no symptoms reported Respiratory: no symptoms reported Cardiovascular: no symptoms reported Gastrointestinal: no symptoms reported Genitourinary: no symptoms reported : No Musculoskeletal: see HPI Skin: no symptoms reported Psychiatric/Neurological: No Symptoms Reported Past Ufkbrmc-Mkbbik-Umayzo Hx Past Med/Social Hx: Reviewed Nursing Past Med/Soc Hx Patient Social History Alcohol Use: Denies Use Recreational Drug Use: No Smoking Status: Never a Smoker Recent Foreign Travel: No Contact w/Someone Who Travel: No Recent Infectious Disease Expo: No Recent Hopitalizations: No Physical Abuse: No Sexual Abuse: No Mistreated: No Fear: No Immunizations Up To Date Date of Pneumonia Vaccine: September 10, 2016 Date of Influenza Vaccine: Apr 14, 2019 Seasonal Allergies Seasonal Allergies: Yes Past Medical History Surgeries: Yes (RIGHT THORACOTOMY, HERNIA) Tubal Ligation Respiratory: Yes (HX OF LUNG ABCESS) Asthma, Pneumonia, Chronic Bronchitis, COPD Cardiac: Yes High Cholesterol Neurological: Yes Headaches /Migraines Reproductive Disorders: No 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 Sexually Transmitted Disease: No HIV/AIDS: No Genitourinary: Yes UTI-Chronic Gastrointestinal: Yes Gastroesophageal Reflux, Chronic Diarrhea 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 0.2oz. [id number]; 21.00 BMI Method:Stated General Appearance: WD/WN, no apparent distress HEENT: PERRL/EOMI, normal ENT inspection Neck: normal inspection Cardiovascular: regular rate, rhythm, no edema, no murmur Respiratory: lungs clear, normal breath sounds, no respiratory distress, no accessory muscle use Peripheral Pulses: 2+ Dorsalis Pedis (R) Gastrointestinal: normal bowel sounds, non tender, soft Extremities: normal inspection, no pedal edema, other (tenderness over the righ t lateral hip and inguinal region. Pain in the right inguinal region with rotation of the hip. Minor pain in the foot with palpation) Neurologic/Psychiatric: print support specialist II-XII nml as tested, no motor/sensory deficits, alert, normal mood/affect, oriented x 3 Skin: normal color, warm/dry Helen Coma Score Best Eye Response: (4) Open Spontaneously Best Verbal Response: (5) Oriented Best Motor Response: (6) Obeys Commands Helen Total: 15 Progress/Results/Core Measures Results/Orders Lab Results Laboratory Tests Test 07/15/19 15:20 Range/Units White Blood Count 6.2 4.3-11.0 10^3/uL Red Blood Count 4.17 L 4.35-5.85 10^6/uL Hemoglobin 9.2 L 11.5-16.0 G/DL Hematocrit 31 L 35-52 % Mean Corpuscular Volume 73 L 80-99 FL Mean Corpuscular Hemoglobin 22 L 25-34 PG Mean Corpuscular Hemoglobin Concent 30 L 32-36 G/DL Red Cell Distribution Width 18.1 H 10.0-14.5 % Platelet Count 388 130-400 10^3/uL Mean Platelet Volume 9.9 7.4-10.4 FL Neutrophils (%) (Auto) 64 42-75 % Lymphocytes (%) (Auto) 26 12-44 % Monocytes (%) (Auto) 9 0-12 % Eosinophils (%) (Auto) 1 0-10 % Basophils (%) (Auto) 1 0-10 % Neutrophils # (Auto) 4.0 1.8-7.8 X 10^3 Lymphocytes # (Auto) 1.6 1.0-4.0 X 10^3 Monocytes # (Auto) 0.5 0.0-1.0 X 10^3 Eosinophils # (Auto) 0.1 0.0-0.3 10^3/uL Basophils # (Auto) 0.0 0.0-0.1 10^3/uL Sodium Level 133 L 135-145 MMOL/L Potassium Level 4.0 3.6-5.0 MMOL/L Chloride Level 100 98-107 MMOL/L Carbon Dioxide Level 21 21-32 MMOL/L Anion Gap 12 5-14 MMOL/L Blood Urea Nitrogen 14 7-18 MG/DL Creatinine 0.66 0.60-1.30 MG/DL Estimat Glomerular Filtration Rate > 60 BUN/Creatinine Ratio 21 Glucose Level 118 H 70-105 MG/DL Calcium Level 8.9 8.5-10.1 MG/DL My Orders Orders - MACRINA ESPOSITO MD Pelvis With Right Hip 2-3views (07/15/19 15:21) Basic Metabolic Panel (07/15/19 16:16) Foot, Right, 3 View (07/15/19 16:16) Ct Abdomen/Pelvis Wo (07/15/19 17:15) Cbc With Automated Diff (07/15/19 17:15) Ua Culture If Indicated (07/15/19 17:15) Hydrocodone/Apap 5/325 Tablet (Lortab 5 (07/15/19 17:15) Medications Given in ED Current Medications Medications Dose Ordered Sig/Eris Route Start Time Stop Time Status Last Admin Dose Admin Acetaminophen/ Hydrocodone Bitart 1 tab ONCE ONCE PO 07/15/19 17:15 07/15/19 17:17 DC 07/15/19 17:27 1 TAB Vital Signs/I&O 07/15/19 15:17 Temp 35.6 Pulse 87 Resp 20 B/P (MAP) 129/99 (109) Pulse Ox 96 O2 Delivery Room Air Blood Pressure Mean: 109 Progress Progress Note #1: Time: 17:22 Progress Note Patient was found to have an inferior pubic ramus fracture on the right. We attempted to get her up and a walker to ambulate. She was able to take about 2 steps with partial weightbearing before she had to stop secondary to pain. At the radiologist's recommendation, we are assessing the pelvis further with CT scan. Hydrocodone is being given for pain. Patient may be a good candidate for the inpatient rehabilitation unit. The assessment staff is out of the building for the day. We will see results of the CT scan and then contacted the attending physician about admission for observation until a rehabilitation c onsultation can be obtained. Foot x-ray was added to the workup because patient complained of mid foot pain when we applied her socks. X-ray was negative. Progress Note #2: Time: 18:[address] revealed no other major abnormalities. There is a questionable lumbar compression fracture but patient does not have new pain there. Dr. Galindo is agreeable to admission for observation and a rehabilitation consult in the morning. Diagnostic Imaging Diagonstic Imaging: Xray Plain Films/CT/US/NM/MRI: pelvis, hip Comments Hip and pelvis x-ray viewed by me and report reviewed. See report below: NAME: CLARISSE WASHINGTON MED REC#: [id number] PT STATUS: REG ER : 1950 PHYSICIAN: MACRINA ESPOSITO MD ADMIT DATE: 07/15/19/ER Signed Date of Exam:07/15/19 PELVIS WITH RIGHT HIP 2-3VIEWS INDICATION: Fall, pain. COMPARISON: November 14, 2016. TECHNIQUE: Three radiographs of the pelvis and right hip dated July 15, 2019. FINDINGS: Osseous demineralization. Surgical clips are noted overlying the upper pelvis bilaterally. The sacroiliac joints are intact. A lucency is noted overlying the right inferior pubic ramus, noted on two separate images. Moderate vascular calcifications. IMPRESSION: Questionable nondisplaced fracturing involving the right inferior pubic ramus. This can be confirmed with a CT of the pelvis. Osseous demineralization, which limits sensitivity for underlying recent fractures. Mild scattered degenerative changes. Moderate vascular calcifications. Report was called to Dr. Esposito in the [facility] ER at 4:57 p.m., by wiley (for DAGMAR). Dictated by: Dictated on workstation # [id number] Dict: 07/15/19 1548 Trans: 07/15/191706 WILEY [id number] Interpreted by: PEDRO BARRETT MD Electronically signed by: PEDRO BARRETT MD 07/15/19 3103 Diagonstic Imaging: Xray Plain Films/CT/US/NM/MRI: other (right foot) Comments Right foot x-ray viewed by me and report reviewed. See report below: NAME: CLARISSE WASHINGTON MED REC#: [id number] PT STATUS: REG ER : 1950 PHYSICIAN: MACRINA ESPOSITO MD ADMIT DATE: 07/15/19/ER Signed Date of Exam:07/15/19 FOOT, RIGHT, 3 VIEW INDICATION: Lateral foot pain. AP, oblique, and lateral views of the right foot are obtained. FINDINGS: Diffuse osteopenia is noted. No definite fracture or acute bony abnormality is seen. There are mild diffuse degenerative changes throughout the interphalangeal joints. IMPRESSION: Chronic changes with no acute appearing abnormality. Dictated by: Dictated on workstation # [id number] Dict: 07/15/19 1644 Trans: 07/15/191656 [id number] Interpreted by: RICHARD SALEH MD Electronically signed by: RICHARD SALEH MD 07/15/191656 Diagonstic Imaging: CT Plain Films/CT/US/NM/MRI: pelvis Comments CT viewed by me and report reviewed. See report below: NAME: CLARISSE WASHINGTON MED REC#: [id number] PT STATUS: REG ER : 1950 PHYSICIAN: MACRINA ESPOSITO MD ADMIT DATE: 07/15/19/ER Draft Date of Exam:07/15/19 CT ABDOMEN/PELVIS WO PROCEDURE: CT abdomen and pelvis without contrast. TECHNIQUE: Multiple contiguous axial images were obtained through the abdomen and pelvis without the use of intravenous contrast. Auto Exposure Controls were utilized during the CT exam to meet ALARA standards for radiation dose reduction. INDICATION: Fall with abdominal pain. COMPARISON: Comparison is made to study of 11/14/2016. FINDINGS: Hiatal hernia has a similar overall appearance. The herniated portion of the stomach is incompletely evaluated due to intrathoracic location. Unenhanced images of the liver and spleen reveal no focal abnormality. There is high-density material in the dependent portion of the gallbladder, which may be due to sludge or stones. No definite biliary ductal dilatation is identified. There is no evidence of pancreatic, adrenal gland, or renal abnormality seen on the noncontrasted study. The bladder is distended. There is no evidence of significant free peritoneal fluid or hemoperitoneum. Moderate amount of stool is seen throughout the colon. There is a moderate amount of lumbar spondylosis with grade 1 anterolisthesis of L5 on S1. In addition, there is anterior wedging of L1 vertebral body without significant associated hemorrhage. There is a mildly displaced fracture involving the right inferior ischial ramus with a small amount of associated hemorrhage. IMPRESSION: Mild anterior compression fracture at L1, which may be acute with an apparent acute nondisplaced right inferior ischial ramus fracture. Otherwise, no definite acute abdominal or pelvic abnormality is identified. Dictated on workstation # [id number] Dict: 07/15/19 1802 Trans: 07/15/19 1819 [id number] Interpreted by: MARLEEN SANDS MD Departure Communication (Admissions) Time/Spoke to Admitting Phy: 18:20 Dr. Galindo Impression Primary Impression: Pelvic fracture Qualified Codes: S32.601A - Unspecified fracture of right ischium, initial encounter for closed fracture Additional Impression: Fall on same level Qualified Codes: W18.30XA - Fall on same level, unspecified, initial encounter Disposition: ADMITTED INPATIENT Condition: Improved Admissions Decision to Admit Reason: Admit from ER (General) Decision to Admit/Date: Jul 15, 2019 Time/Decision to Admit Time: 18:20 Departure-Patient Inst. Referrals: TOSHIA POPE DO (PCP) Primary Care Physician ELLEN DISLA (Family) Primary Care Physician MACRINA ESPOSITO MD Jul 15, 2019 16:00
--- NOTE | 2019-07-15 16:18 | NUR ---
PT CO OF R FOOT PAIN DR PENA IN ROOM
[2019-07-15 16:41] LABS: BUN/CREATININE RATIO 21; CARBON DIOXIDE 21 MMOL/L (21-32); CHLORIDE 100 MMOL/L (98-107); CREATININE SERUM 0.66 MG/DL (0.60-1.30); SODIUM 133 MMOL/L (135-145)
[2019-07-15 16:42] LABS: CALCIUM 8.9 MG/DL (8.5-10.1); GFR ESTIMATED > 60; GLUCOSE 118 MG/DL (70-105)
--- NOTE | 2019-07-15 16:46 | Diagnostic Imaging Report ---
INDICATION: Lateral foot pain. AP, oblique, and lateral views of the right foot are obtained. FINDINGS: Diffuse osteopenia is noted. No definite fracture or acute bony abnormality is seen. There are mild diffuse degenerative changes throughout the interphalangeal joints. IMPRESSION: Chronic changes with no acute appearing abnormality. Dictated by: Dictated on workstation # [id number]
--- NOTE | 2019-07-15 16:57 | Diagnostic Imaging Report ---
INDICATION: Fall, pain. COMPARISON: November 14, 2016. TECHNIQUE: Three radiographs of the pelvis and right hip dated July 15, 2019. FINDINGS: Osseous demineralization. Surgical clips are noted overlying the upper pelvis bilaterally. The sacroiliac joints are intact. A lucency is noted overlying the right inferior pubic ramus, noted on two separate images. Moderate vascular calcifications. IMPRESSION: Questionable nondisplaced fracturing involving the right inferior pubic ramus. This can be confirmed with a CT of the pelvis. Osseous demineralization, which limits sensitivity for underlying recent fractures. Mild scattered degenerative changes. Moderate vascular calcifications. Report was called to Dr. Esposito in the [place] [facility] ER at 4:57 p.m., by ashlyn (for DAGMAR). Dictated by: Dictated on workstation # [id number]
[2019-07-15] MEDS ORDERED: HYDROcodone/APAP 5 MG/325 MG (LORTAB) TAB PO ONE (17:15)
[2019-07-15 17:23] LABS: BASOPHILS % (AUTO) 1 % (0-10); EOSINOPHILS # (AUTO) 0.1 10^3/uL (0.0-0.3); EOSINOPHILS % (AUTO) 1 % (0-10); HEMATOCRIT 31 % (35-52); HEMOGLOBIN 9.2 G/DL (11.5-16.0); LYMPHOCYTES # (AUTO) 1.6 X 10^3 (1.0-4.0); LYMPHOCYTES % (AUTO) 26 % (12-44); MEAN CORPUSCULAR HEMOGLOBIN 22 PG (25-34); MEAN CORPUSCULAR HGB CONC 30 G/DL (32-36); MEAN CORPUSCULAR VOLUME 73 FL (80-99); MEAN PLATELET VOLUME 9.9 FL (7.4-10.4); MONOCYTES # (AUTO) 0.5 X 10^3 (0.0-1.0); MONOCYTES % (AUTO) 9 % (0-12); NEUTROPHILS % (AUTO) 64 % (42-75); PLATELET COUNT 388 10^3/uL (130-400); RED CELL DISTRIBUTION WIDTH 18.1 % (10.0-14.5); WHITE BLOOD COUNT 6.2 10^3/uL (4.3-11.0)
--- NOTE | 2019-07-15 18:20 | Diagnostic Imaging Report ---
PROCEDURE: CT abdomen and pelvis without contrast. TECHNIQUE: Multiple contiguous axial images were obtained through the abdomen and pelvis without the use of intravenous contrast. Auto Exposure Controls were utilized during the CT exam to meet ALARA standards for radiation dose reduction. INDICATION: Fall with abdominal pain. COMPARISON: Comparison is made to study of 11/14/2016. FINDINGS: Hiatal hernia has a similar overall appearance. The herniated portion of the stomach is incompletely evaluated due to intrathoracic location. Unenhanced images of the liver and spleen reveal no focal abnormality. There is high-density material in the dependent portion of the gallbladder, which may be due to sludge or stones. No definite biliary ductal dilatation is identified. There is no evidence of pancreatic, adrenal gland, or renal abnormality seen on the noncontrasted study. The bladder is distended. There is no evidence of significant free peritoneal fluid or hemoperitoneum. Moderate amount of stool is seen throughout the colon. There is a moderate amount of lumbar spondylosis with grade 1 anterolisthesis of L5 on S1. In addition, there is anterior wedging of L1 vertebral body without significant associated hemorrhage. There is a mildly displaced fracture involving the right inferior ischial ramus with a small amount of associated hemorrhage. IMPRESSION: Mild anterior compression fracture at L1, which may be acute with an apparent acute nondisplaced right inferior ischial ramus fracture. Otherwise, no definite acute abdominal or pelvic abnormality is identified. Dictated by: Dictated on workstation # [id number]
--- NOTE | 2019-07-15 19:38 | NUR ---
CLARISSE WASHINGTON admitted to room 424-1, with an admitting diagnosis of PELVIC FRACTURE, on 07/15/19 from AM via , accompanied by .CLARISSE WASHINGTON introduced to surroundings, call light, bed controls, phone, TV, temperature control, lights, meal times, smoking policy, visitor policy, side rail policy, bathrooms and showers. Patient Rights given to patient in the handbook. CLARISSE WASHINGTON verbalizes understanding that [facility] is not responsible for the loss or damage to any personal effects or valuables that are kept in the patients posession during their hospitalization. CLARISSE WASHINGTON verbalizes understanding of Interdisciplinary Patient Education. Patient and/or family were informed about the Rapid Response Team and its purpose.
[2019-07-15 19:45] VITALS: BP 125/76
[2019-07-15] MEDS ORDERED: CATHETER FLUSH 10 ML SYR IV PRN (19:45)
[2019-07-15 20:00] VITALS: BP 125/76
[2019-07-15 20:08] VITALS: BP 122/88
[2019-07-15] MEDS ORDERED: RT-ALBUTEROL SULF 2.5 MG/3 ML PRE-MIX VIAL INH PRN (20:30)
[2019-07-15] MEDS: metFORMIN 500 MG (GLUCOPHAGE) TAB PO SCH (20:39)
[2019-07-15] MEDS: HYDROcodone/APAP 5 MG/325 MG (LORTAB) TAB PO PRN (21:33)
[2019-07-15] MEDS ORDERED: ENOXAPARIN 40 MG/0.4 ML (LOVENOX) SYR SQ SCH (22:00)
[2019-07-15] MEDS: CATHETER FLUSH 10 ML SYR IV SCH (22:15)
[2019-07-15] MEDS: ENOXAPARIN 40 MG/0.4 ML (LOVENOX) SYR SQ SCH (23:07)
[2019-07-16] VITALS: BP 112/68
[2019-07-16 04:00] VITALS: BP 128/76
[2019-07-16] MEDS: HYDROcodone/APAP 5 MG/325 MG (LORTAB) TAB PO PRN ×4 (04:14→20:43)
[2019-07-16] MEDS: CATHETER FLUSH 10 ML SYR IV SCH ×3 (06:24→20:43)
[2019-07-16 08:00] VITALS: BP 102/65
[2019-07-16] MEDS: metFORMIN 500 MG (GLUCOPHAGE) TAB PO SCH ×2 (08:13→16:19)
--- NOTE | 2019-07-16 10:55 | History & Physical ---
JENNA MONIQUE MED STUDENT 07/16/19 1055: HPI History of Present Illness: CC: Pain after fall Pt is 68yo F who fell while getting out of her computer chair. She thinks her knee gave out and this led to the fall. She had pain in her R lower abdomen and groin that radiated throughout her R leg down to her toes. It hurt for her to try to walk. She denies hitting her head. She has had one other fall about 4y ago where she blacked out while she was in a store. She thinks this fall is different from that one. Interval Update: She says her pain is better this morning. She has gotten up with assistance to use her bedside commode, and this was still difficult/associated with pain. She had a headache last night that she thinks was related to her sinuses. She had not other complaints this morning, but was curious about when she would be getting out of the hospital and what rehab might look like. Source: patient Exam Limitations: no limitations Date seen by provider: Jul 16, 2019 Time Seen by Provider: 07:45 Attending Physician Cornell Galindo MD PCP Keyona Mccracken DO Consult Date of Admission Jul 15, 2019 at 18:20 Home Medications Home Medications Reviewed patient Home Medication Reconciliation performed by pharmacy medication reconciliations endoscopy technician and/or nursing. Patients Allergies have been reviewed. 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) Alcohol Use: Denies Use Recreational Drug Use: No Smoking Status: Never a Smoker Recent Foreign Travel: No Contact w/other who traveled: No Recent Hopitalizations: No Recent Infectious Disease Expo: No Immunizations Up To Date Date of Pneumonia Vaccine: Jul 14, 2017 Date of Influenza Vaccine: Mar 08, 2019 Past Medical History Diabetes mellitus Family Medical History Significant Family History: No Pertinent Family Hx Review of Systems ([facility]C) Constitutional: No chills, No diaphoresis, No fever, No weakness EENTM: No blurred vision, No throat pain Respiratory: No cough, No short of breath Cardiovascular: No chest pain, No palpitations Gastrointestinal: No abdominal pain, No constipation; diarrhea (Reports chronically having episodes of diarrhea) Genitourinary: dysuria Musculoskeletal: see HPI Physical Exam-(CHC) Physical Exam Vital Signs VS - Last 72 Hours, by Label 07/15/19 07/15/19 07/15/19 07/15/19 15:17 18:51 19:40 19:45 Temp 35.6 36.9 Pulse 87 72 69 Resp 20 20 20 B/P (MAP) 129/99 (109) 122/88 (109) 125/76 Pulse Ox 96 96 99 99 O2 Delivery Room Air Room Air Room Air 07/15/19 07/15/19 07/16/19 07/16/19 20:00 20:08 00:00 04:00 Temp 36.9 35.6 36.8 36.8 Pulse 69 72 69 67 Resp 20 16 20 B/P (MAP) 125/76 (92) 112/68 (83) 128/76 (93) Pulse Ox 99 96 95 97 O2 Delivery Room Air Room Air Room Air 07/16/19 08:00 Temp 36.0 Pulse 88 Resp 20 B/P (MAP) 102/65 (77) Pulse Ox 95 O2 Delivery Room Air Capillary Refill : Less Than 3 SecondsLess Than 3 Seconds General Appearance: WD/WN, no apparent distress Eyes: Bilateral Eye Normal Inspection Neck: normal inspection Respiratory: crackles (R side) Cardiovascular: normal peripheral pulses, regular rate, rhythm Gastrointestinal: normal bowel sounds, non tender, soft Extremities: other (Pt able to dorsiflex R foot but increased pain; R lower extremity not tender to palpation) Neurologic/Psychiatric: alert, normal mood/affect, oriented x 3 Skin: normal color, warm/dry Assessment/Plan Assessment/Plan Admission Dx #R Inferior Pubic Ramus Fracture - Inpatient rehab evaluation - PT/OT consult - Pt does not think she has had DEXA scan; consider completing as outpatient #Microcytic Anemia - Pt denies Hx of anemia - Up to date on colonoscopy - No records in system with previous CBC - Consider iron studies for further workup Clinical Quality Measures DVT/VTE Risk/Contraindication: Risk Factor Score Per Nursin RFS Level Per Nursing on Admit: 4+=Very High CORNELL GALINDO MD 07/16/19 1308: Home Medications Allergies Coded Allergies: Sulfa (Sulfonamide Antibiotics) (Verified Allergy, Intermediate, 01/14/17) Assessment/Plan Assessment/Plan Admission Status: Observation Supervisory-Addendum Brief Verification & Attestation Participated in pt care: history, MDM, physical Personally performed: exam, history Care discussed with: Medical Student Procedures: n/a Verification and Attestation of Medical Student E/M Service A medical student performed and documented this service. I reviewed and verified all information documented by the medical student and made modifications to such information, when appropriate. I personally performed the physical exam and medical decision making. Cornell Galindo, Jul 16, 2019,13:08 JENNA MONIQUE MED STUDENT Jul 16, 2019 10:55 CORNELL GALINDO MD Jul 16, 2019 13:08
--- NOTE | 2019-07-16 11:21 | NUR ---
"RD ASSESSMENT PMHx: COPD; hypercholesterolemia; chronic-UTI; GERD; chronic diarrhea; DM PT INTERACTION: Pt was awake and pleasant during nutrition assessment. Pt states current appetite is so-so and was the same prior to admit. Note PO intake of 75% x1meal, per chart review. Pt states trying to watch what she eats at home, and has some difficulty chewing d/t no teeth. Pt states no recent issues with n/v at this time. Pt states recent issues with diarrhea. Note last BM was 07/14 and pt not currently on bowel regimen per chart review. Pt states recent 10# wt loss, but unsure of timeframe. Note unable to determine recent wt hx, per chart review. Pt states current DM control is pretty good, and that her last HbA1c was 6.0, which was taken on 07/12. Note unable to determine recent HbA1c, per chart review. ABNORMAL NUTRITION-RELATED LAB VALUES LOW: Na 133 HIGH: glu 118 Est. kcal needs: 2026-4430 kcal | 25-30 kcal/kg Est. Pro needs: 47-58 g Pro | 0.8-1.0 g Pro/kg PES STATEMENT: Inadequate oral intake (NI-2.1) related to loss of appetite | diarrhea as evidenced by pt interview INTERVENTION: Continue with current diet order of CHO 75g/m 0snack diet. Switch current supplementation order of Ensure Enlive with meals TID to Glucerna (van/straw) with meals TID. Glucerna provides 220 kcal and 10 g Pro per serving. Will continue to follow and reassess as pt needs, intake, and status change. MONITOR/EVALUATE: PO Intake; Plan of Care; Hydration Status; Weight Status; Lab Values Alea Stevens, MS, RD, LD"
[2019-07-16 12:00] VITALS: BP 110/69
[2019-07-16] MEDS ORDERED: ONDANSETRON 4 MG/2 ML (SDV) Z0FRAN ONE ×2 (13:20→22:24)
--- NOTE | 2019-07-16 14:08 | Physical Therapy Evaluation ---
PT Evaluation-General Medical Diagnosis Admission Date Jul 15, 2019 at 18:20 Medical Diagnosis: pelvic fracture Onset Date: Jul 15, 2019 Therapy Diagnosis Therapy Diagnosis: debility/weakness Height/Weight Height (Feet): 5 Height (Inches): 7.00 Weight (Pounds): 130 Weight (Ounces): 0.2 Precautions Precautions/Isolations: Fall Prevention, Standard Precautions Weight Bear Status Right Lower Extremity: Right Weight Bearing/Tolerated Left Lower Extremity: Left Weight Bearing/Tolerated Referral Physician: Mateo Reason for Referral: Evaluation/Treatment Medical History Pertinent Medical History: COPD, DM, GERD Current History EMS secondary to fall at home Reviewed History: Yes Social History Home: Single Level Current Living Status: Spouse Entry Into Home: Level Entry Prior Prior Level of Function SCALE: Activities may be completed with or without assistive devices. 1-Shwjevyija-wsisimq completes the activity by him/herself with no assistance from a helper. 5-Set-up or Clean-up Assistance-helper sets up or cleans up; patient completes activity. [place] assists only prior to or following the activity. 4-Supervision or Touching Assistance-helper provides verbal cues and/or touching/steadying and/or contact guard assistance as patient completes activity. Assistance may be provided throughout the activity or intermittently. 3-Partial/Moderate Assistance-helper does LESS THAN HALF the effort. [place] lifts, holds or supports trunk or limbs, but provides less than half the effort. 2-Substantial/Maximal Assistance-helper does MORE THAN HALF the effort. [place] lifts or holds trunk or limbs and provides more than half the effort. 7-Waqykoltz-qnrsic does ALL the effort. Patient does none of the effort to complete the activity. Or, the assistance of 2 or more helpers is required for the patient to complete the activity. If activity was not attempted, code reason: 7-Patient Refused. 9-Not Applicable-not attempted and the patient did not perform the activity be fore the current illness, exacerbation or injury. 10-Not Attempted due to Environmental Limitations-(lack of equipment, weather restraints, etc.). 88-Not Attempted due to Medical Conditions or Safety Concerns. Bed Mobility: 6 Transfers (B,C,W/C): 6 Gait: 6 Stairs: 6 Indoor Mobility (Ambulation): Independent Stairs: Independent Prior Devices Use: None PT Evaluation-Current Subjective Patient agrees to PT. Pain Numeric Pain Scale: 8 Location: Right Location Body Site: Pelvic Pain Description: Pressure, Acute, Sharp Objective Patient Orientation: Normal For Age Attachments: IV ROM/Strength ROM Lower Extremities bilateral LE WFL Strength Lower Extremities 4/5 grossly bilateral LE Integumentary/Posture Integumentary refer to nursing notes Bowel Incontinence: No Bladder Incontinence: No Posture WFL Neuromuscular (Tone, Coordination, Reflexes) grossly intact Sensory Vision: Wears Glasses Hearing: Functional Sensation Right Lower Extremit: Intact Sensation Left Lower Extremity: Intact Transfers Roll Left to Right (QC): 4 Sit to Lying (QC): 4 Lying to Sitting/Side of Bed(Q: 4 Sit to Stand (QC): 3 Chair/Jgd-gq-Wowua Xfer(QC): 3 Toilet Transfer: 3 Gait Does the Patient Walk?: Yes Mode of Locomotion: Walk Anticipated Mode of Locomotion: Walk Walk 10 feet (QC): 4 Walk 50 ft with 2 Turns(QC): 4 Distance: 50' Gait Assistive Device: FWW Comments/Gait Description very slow and antalgic with step to gait sequence Balance Sitting Static: Normal Sitting Dynamic: Normal Standing Static: Good Standing Dynamic: Good Assessment/Needs 68 y.o. female, will benefit from skilled PT to address functional strength and mobility to improve current LOF to safely return to home at maximum LOF. Rehab Potential: Fair PT Feedmobile Driver Goals Feedmobile Driver Goals PT [facility] Goals Time Frame: Jul 23, 2019 Roll Left & Right (QC): 6 Sit to Lying (QC): 6 Lying-Sitting on Side/Bed(QC): 6 Sit to Stand (QC): 6 Chair/Npz-gu-Rncnm Xfer(QC): 6 Toilet Transfer (QC): 6 Car Transfer (QC): 6 Does the Patient Walk: Yes Walk 10 feet (QC): 6 Walk 50ft with 2 Turns (QC): 6 Walk 150 ft (QC): 6 Walking 10ft on Uneven Surface: 6 PT Plan Problem List Problem List: Activity Tolerance, Functional Strength, Gait, Transfer, Other (pain control) Treatment/Plan Treatment Plan: Continue Plan of Care Treatment Plan: Bed Mobility, Education, Functional Activity Av, Functional Strength, Gait, Safety, Therapeutic Exercise, Transfers Treatment Duration: Jul 23, 2019 Frequency: 11 times per week Estimated Hrs Per Day: .5 hour per day Patient and/or Family Agrees t: Yes Time/GCodes Time In: 1310 Time Out: 1325 Total Billed Treatment Time: 15 Total Billed Treatment 1 visit EVModC 15 min FAIZA [place] PT Jul 16, 2019 14:08
[2019-07-16] MEDS ORDERED: POTA10TA PO (14:13)
[2019-07-16] MEDS ORDERED: PRAV20TA3 PO (14:13)
[2019-07-16] MEDS ORDERED: BUDE10.2 PO (14:13)
[2019-07-16] MEDS ORDERED: ZFR20T PO (14:13)
[2019-07-16] MEDS ORDERED: ASPI-983 PO (14:13)
[2019-07-16] MEDS ORDERED: ALBU18HF2 PO (14:13)
[2019-07-16] MEDS ORDERED: OMEP40CA27 PO (14:13)
[2019-07-16] MEDS ORDERED: MAGN400T39 PO (14:30)
[2019-07-16] MEDS ORDERED: ACET-2267 PO (14:33)
--- NOTE | 2019-07-16 14:36 | NUR ---
SPOKE WITH PT (SHE HAD MED BOTTLES) WELL GOING THRU THE EXT MED HISTORY AND CALLING [facility] TO COMPLETE THE MED REC. FILL DATES NOT LISTED ON THE EXT MED HISTORY: 05-19-2019 OMEPRAZOLE 40MG #90/90DS 05-19-2019 PRAVASTATIN 20MG #90/90DS 05-24-2019 MAGNESIUM 400MG #60/30DS NOTED PAST FILL DATE ON THE MED REC [facility] IS PAST DUE FOR A REFILL- IT IS NOTED IN THE MED REC OTC MEDS: ASPIRIN 81 TYLENOL
--- NOTE | 2019-07-16 14:47 | NUR ---
IRF Evaluation Order received to evaluate patient for the ARU. Awaiting therapy evaluations. [facility]; therefore, prior authorization will need to submitted and approved, prior to admission. Will continue to follow. Thank you for this referral.
--- NOTE | 2019-07-16 15:52 | Occupational Therapy Eval ---
OT Evaluation-General/PLF Medical Diagnosis Admission Date Jul 15, 2019 at 18:20 Medical Diagnosis: pelvic fracture Onset Date: Jul 15, 2019 Therapy Diagnosis Therapy Diagnosis: impaired ADLs/functional mobility Height/Weight Height (Feet): 5 Height (Inches): 7.00 Weight (Pounds): 130 Weight (Ounces): 0.2 Precautions Precautions/Isolations: Fall Prevention, Standard Precautions Safety Interventions: None Referral Physician: Mateo Referral Reason: Evaluation/Treatment Medical History Pertinent Medical History: COPD, DM, GERD Current History Per H&P: "Pt is 68yo F who fell while getting out of her computer chair. She thinks her knee gave out and this led to the fall. She had pain in her R lower abdomen and groin that radiated throughout her R leg down to her toes. It hurt for her to try to walk. She denies hitting her head. She has had one other fall about 4y ago where she blacked out while she was in a store. She thinks this fall is different from that one." Reviewed History: Yes Social History Home: Single Level Current Living Status: Spouse Entry Into Home: Level Entry ADL-Prior Level of Function SCALE: Activities may be completed with or without assistive devices. 8-Kiarmmnfqm-ghhozht completes the activity by him/herself with no assistance from a helper. 5-Set-up or Clean-up Assistance-helper sets up or cleans up; patient completes activity. [place] assists only prior to or following the activity. 4-Supervision or Touching Assistance-helper provides verbal cues and/or touching/steadying and/or contact guard assistance as patient completes activity. Assistance may be provided throughout the activity or intermittently. 3-Partial/Moderate Assistance-helper does LESS THAN HALF the effort. [place] lifts, holds or supports trunk or limbs, but provides less than half the effort. 2-Substantial/Maximal Assistance-helper does MORE THAN HALF the effort. [place] lifts or holds trunk or limbs and provides more than half the effort. 3-Heuxcsovg-ecngro does ALL the effort. Patient does none of the effort to complete the activity. Or, the assistance of 2 or more helpers is required for the patient to complete the activity. If activity was not attempted, code reason: 7-Patient Refused. 9-Not Applicable-not attempted and the patient did not perform the activity before the current illness, exacerbation or injury. 10-Not Attempted due to Environmental Limitations-(lack of equipment, weather restraints, etc.). 88-Not Attempted due to Medical Conditions or Safety Concerns. ADL PLOF Comments Pt reports being independent with all ADLs prior to hospitalization except she occasionally required assistance getting out of the bath tub after she has taken a bath. She did not use any AD for functional mobility. Self Care: Independent Functional Cognition: Independent DME/Equipment: Tub/Shower OT Current Status Subjective Pt laying in bed at start of session, stated she has the most pain when walking but it isn't bad when she is laying down. Pt did not provide verbal pain rating. Mental Status/Objective Patient Orientation: Person, Place, Time, Situation Attachments: SCD's Current Glasses/Contacts: Yes Hearing Aids: No Dentures/Partials: No Upper Extremity ROM WFL BUE shoulder flexion to approx 160 degress Upper Extremity Coordination WFL Upper Extremity Sensation Pt reports she some times has tingling/numbness in BUEs along the ulnar aspect of her hands. Upper Extremity Strength WFL, 4/5 MMT ADL-Treatment On/Off Footwear (QC): 6 (Pt able to don/doff slipper socks with increased time) Toileting Hygiene (QC): 4 (CGA ) Other Treatments Pt laying in bed at start of session. OT educated pt on purpose and benefit of OT. Pt provided information about PLOF and home set up. She then transfers supine to sit EOB with SBA, then dons/doffs slipper socks. She then reports she feels like she should try to use the bathroom. She stood with CGA then transferred to BSC with CGA and increased time. Pt completed toileting then transferred back to bed with CGA. Pt transfers sit to supine with SBA and increased time. Post OT session, pt laying in bed, call light in reach and all needs met. Education OT Patient Education: Correct positioning, Energy conservation, Modified ADL techniques, Progress toward Goal/Update tx plan, Purpose of tx/functional activities, Transfer techniques Teaching Recipient: Patient Teaching Methods: Discussion Response to Teaching: Verbalize Understanding OT Ribbon Sweatband Operator Goals Ribbon Sweatband Operator Goals Time Frame: Jul 23, 2019 Eating (QC): 6 Oral Hygiene (QC): 6 Toileting Hygiene (QC): 6 Shower/Bathe Self (QC): 6 Upper Body Dressing (QC): 6 Lower Body Dressing (QC): 6 On/Off Footwear (QC): 6 1=Demonstrate adherence to instructed precautions during ADL tasks. 2=Patient will verbalize/demonstrate understanding of assistive devices/modifications for ADL. 3=Patient will improve strength/tolerance for activity to enable patient to perform ADL's. OT Education/Plan Problem List/Assessment Assessment: Decreased Activ Tolerance, Decreased UE Strength, Impaired I ADL's, Impaired Self-Care Skills Discharge Recommendations Plan/Recommendations: Continue POC Therapy Discharge Recommendati: Home & Family, Post Acute OT (home health) Treatment Plan/Plan of Care Treatment,Training & Education: Yes Patient would benefit from OT for education, treatment and training to promote independence in ADL's, mobility, safety and/or upper extremity function for ADL's. Plan of Care: ADL Retraining, Functional Mobility, UE Funct Exercise/Act Treatment Duration: Jul 23, 2019 Frequency: 5 times per week Estimated Hrs Per Day: .25 hour per day Agreement: Yes Rehab Potential: Fair Time/GCodes Start Time: 15:20 Stop Time: 15:42 Total Time Billed (hr/min): 22 Billed Treatment Time 1, VERONICA NUNO OT Jul 16, 2019 15:52
[2019-07-16 15:55] VITALS: BP 112/70
[2019-07-16] MEDS ORDERED: metFORMIN 500 MG (GLUCOPHAGE) TAB PO SCH (17:00)
[2019-07-16 19:53] VITALS: BP 127/84
--- NOTE | 2019-07-16 22:25 | NUR ---
PT NAUSEATED AND VOMITED COFFEE GROUND LIKE EMESIS. DR KERNS NOTIFIED AND ORDERED TO HOLD LOVENOX, CONSULT DR MILLS. AND NEW ORDER FOR JACKY RECEIVED, SEE ORDER HISTORY
[2019-07-16] MEDS ORDERED: ONDANSETRON 4 MG/2 ML (SDV) Z0FRAN IVP PRN (22:30)
--- NOTE | 2019-07-16 22:40 | NUR ---
DR MILLS NOTIFIED OF CONSULT, ORDERED TO CHANGE PT DIET TO NPO, AND LR@125 IF NOT ON ANY FLUIDS
[2019-07-16] MEDS: LACTATED RINGERS 1,000 ML IV SCH (23:46)
[2019-07-16] MEDS: ENOXAPARIN 40 MG/0.4 ML (LOVENOX) SYR SQ SCH (23:50)
[2019-07-17] VITALS (11 sets, daily range): BP systolic 93–118; BP diastolic 51–73
[2019-07-17] MEDS: CATHETER FLUSH 10 ML SYR IV SCH ×3 (06:17→23:18)
[2019-07-17] MEDS: metFORMIN 500 MG (GLUCOPHAGE) TAB PO SCH ×2 (07:00→16:25)
[2019-07-17] MEDS: LACTATED RINGERS 1,000 ML IV SCH ×3 (08:46→20:17)
--- NOTE | 2019-07-17 09:58 | Physical Therapy Daily Note ---
PT Daily Note-Current Subjective Patient agrees to PT. Pain Numeric Pain Scale: 10-Worst Possible Pain Location: Right Location Body Site: Pelvic Pain Description: Acute Mental Status Patient Orientation: Normal For Age Attachments: Oxygen, IV Transfers SCALE: Activities may be completed with or without assistive devices. 1-Ieblnjtjqj-loichzt completes the activity by him/herself with no assistance from a helper. 5-Set-up or Clean-up Assistance-helper sets up or cleans up; patient completes activity. [place] assists only prior to or following the activity. 4-Supervision or Touching Assistance-helper provides verbal cues and/or touching/steadying and/or contact guard assistance as patient completes activity. Assistance may be provided throughout the activity or intermittently. 3-Partial/Moderate Assistance-helper does LESS THAN HALF the effort. [place] lifts, holds or supports trunk or limbs, but provides less than half the effort. 2-Substantial/Maximal Assistance-helper does MORE THAN HALF the effort. [place] lifts or holds trunk or limbs and provides more than half the effort. 8-Yjlbrbfzv-kdwbzl does ALL the effort. Patient does none of the effort to complete the activity. Or, the assistance of 2 or more helpers is required for the patient to complete the activity. If activity was not attempted, code reason: 7-Patient Refused. 9-Not Applicable-not attempted and the patient did not perform the activity before the current illness, exacerbation or injury. 10-Not Attempted due to Environmental Limitations-(lack of equipment, weather restraints, etc.). 88-Not Attempted due to Medical Conditions or Safety Concerns. Roll Left & Right (QC): 5 Sit to Lying (QC): 5 Lying to Sitting/Side of Bed(Q: 5 Sit to Stand (QC): 4 Chair/Shz-ot-Hfkqj Xfer(QC): 4 Weight Bearing Right Lower Extremity: Right Weight Bearing/Tolerated Left Lower Extremity: Left Weight Bearing/Tolerated Gait Training Does the Patient Walk?: Yes Distance: 10' Walk 10 feet (QC): 3 Gait Assistive Device: FWW very slow and antalgic with difficulty advancing left LE with weight shifting to right Exercises Seated Therapy Exercises: Ankle pumps, Long arc quads, Hip flexion Seated Reps: 15 Assessment Patient progressing slowly due to pain. Patient is up in recliner with needs met. Patient appears to self limit due to pain right pelvic region. PT to increase activity as tolerated by patient. PT Mcfp Goals Mcfp Goals PT Mcfp Goals Time Frame: Jul 23, 2019 Roll Left & Right (QC): 6 Sit to Lying (QC): 6 Lying-Sitting on Side/Bed(QC): 6 Sit to Stand (QC): 6 Chair/Hhf-ys-Kpoej Xfer(QC): 6 Toilet Transfer (QC): 6 Car Transfer (QC): 6 Does the Patient Walk: Yes Walk 10 feet (QC): 6 Walk 50ft with 2 Turns (QC): 6 Walk 150 ft (QC): 6 Walking 10ft on Uneven Surface: 6 PT Plan Treatment/Plan Treatment Plan: Continue Plan of Care Treatment Plan: Bed Mobility, Education, Functional Activity Av, Functional Strength, Gait, Safety, Therapeutic Exercise, Transfers Treatment Duration: Jul 23, 2019 Frequency: 11 times per week Estimated Hrs Per Day: .5 hour per day Patient and/or Family Agrees t: Yes Time/GCodes Time In: 922 Time Out: 940 Total Billed Treatment Time: 18 Total Billed Treatment 1 visit FA 18 min FAIZA [place] PT Jul 17, 2019 09:57
--- NOTE | 2019-07-17 11:01 | Consultation - Surgery ---
History of Present Illness History of Present Illness Patient Consulted On(michael/time) 07/17/19 10:55 Time Seen by Provider: 09:46 History of Present Illness Surgery asked to consult regarding coffee ground emesis. HPI per ER: This 68-year-old woman presents to the emergency room via [facility] from her home where she fell and injured her right hip. She was getting up out of her chair to adjust the TV antenna when she felt a popping in her knee. Her knee "gave out" and she fell to the floor. She then had pain in the right hip and inguinal region. She was able to get up to her chair where she was found by EMS on their arrival. She denies any other injury or pain in any other area. Her problem with the knee "giving out" is a chronic problem. She denies any lightheadedness or dizziness contributing to the fall. She states she has not felt ill in any way recently. According to the nurse pt had coffee ground emesis last night. Pt states she has never had coffee ground emesis prior to this; she has had melena and had EGD/Colonoscopy in 2014. At that time noted to have mild Gastritis, mild changes at GE junction and large hiatal hernia but no ulcers. She fell and broke her pelvis; thinks she passed out, but she states she just felt weak. Her hemoglobin is 9.2 and 2 years ago it was normal at 12. Pt denies abdominal pain and has not had any melena recently. Allergies and Home Medications Allergies Coded Allergies: Sulfa (Sulfonamide Antibiotics) (Verified Allergy, Intermediate, 01/14/17) Home Medications Acetaminophen 500 Mg Tablet, 1,000 MG PO Q8H PRN for PAIN-MILD (1-4), (Reported) Albuterol Sulfate 18 Gm Hfa.aer.ad, 2 PUFF PO Q4H PRN for SHORTNESS OF BREATH, (Reported) Aspirin 81 Mg Tablet.dr, 81 MG PO DAILY, (Reported) Budesonide/Formoterol Fumarate 10.2 Gm Hfa.aer.ad, 2 PUFF PO BID, (Reported) LAST FILLED 05-24-2019 #1 BOX/ 30 DAY SUPPLY Magnesium Oxide 400 Mg Tablet, 400 MG PO BID, (Reported) LAST FILLED ON 05-24-2019 #60/30 DAY SUPPLY Metformin HCl 500 Mg Tablet, 1,250 MG PO DAILY, (Reported) TAKES 2 & (500MG) TABS AM Metformin HCl 500 Mg Tablet, 750 MG PO HS, (Reported) TAKES 1 & (500MG) TABS PM Omeprazole 40 Mg Capsule.dr, 40 MG PO DAILY, (Reported) Potassium Chloride 10 Meq Tablet.er, 10 MEQ PO 1800, (Reported) TAKES WITH DINNER Pravastatin Sodium 20 Mg Tablet, 20 MG PO HS, (Reported) Zafirlukast 20 Mg Tablet, 20 MG PO BID, (Reported) Patient Home Medication List Home Medication List Reviewed: Yes Past Ptaknpr-Dkjhpi-Jiuvkr Hx Patient Social History Alcohol Use: Denies Use Recreational Drug Use: No Smoking Status: Never a Smoker Recent Foreign Travel: No Contact w/Someone Who Travel: No Recent Infectious Disease Expo: No Recent Hopitalizations: No Immunizations Up To Date Date of Pneumonia Vaccine: Jul 14, 2017 Date of Influenza Vaccine: Mar 08, 2019 Seasonal Allergies Seasonal Allergies: Yes Surgeries History of Surgeries: Yes (RIGHT THORACOTOMY, HERNIA) Surgeries: Tubal Ligation Respiratory History of Respiratory Disorde: Yes (HX OF LUNG ABCESS) Respiratory Disorders: Asthma, Pneumonia, Chronic Bronchitis, COPD Cardiovascular History of Cardiac Disorders: Yes Cardiac Disorders: High Cholesterol Neurological History of Neurological Disord: Yes Neurological Disorders: Headaches /Migraines Reproductive System Hx Reproductive Disorders: No Sexually Transmitted Disease: No HIV/AIDS: No CABLE LAYER History: Tubal Ligation Genitourinary History of Genitourinary Disor: Yes Genitourinary Disorders: UTI-Chronic Gastrointestinal History of Gastrointestinal Di: Yes Gastrointestinal Disorders: Gastroesophageal Reflux, Chronic Diarrhea Musculoskeletal History of Musculoskeletal Dis: Yes (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) Musculoskeletal Disorders: Foot Drop Endocrine History of Endocrine Disorders: Yes Endocrine Disorders: Diabetes, Non-Insulin dep HEENT History of HEENT Disorders: No Loss of Vision: Bilateral Hearing Impairment: Denies Cancer History of Cancer: No Psychosocial History of Psychiatric Problem: Yes Behavioral Health Disorders: Anxiety Integumentary History of Skin or Integumenta: No Blood Transfusions History of Blood Disorders: No Adverse Reaction to a Blood Tr: No (N/A) Family Medical History Significant Family History: Diabetes (mother and father) Review of Systems-General Constitutional: No chills, No diaphoresis; dizziness, weakness EENTM: No blurred vision, No double vision, No mouth pain, No mouth swelling, No epistaxis Respiratory: No cough, No dyspnea on exertion, No hemoptysis, No short of breath Cardiovascular: No chest pain, No edema, No palpitations Gastrointestinal: No abdominal pain, No jaundice, No loss of appetite, No melena; nausea, vomiting Genitourinary: No dysuria, No frequency, No hematuria Musculoskeletal: back pain, joint pain, joint swelling, muscle stiffness, muscle cramps Skin: No change in color, No change in hair/nails, No lesions Psychiatric/Neurological: Denies Anxiety, Denies Depressed, Denies Seizure, Denies Tremors Other pt denies any hx of abnormal bleeding or bruising Physical Exam-General Problems Physical Exam Vital Signs Vital Signs - First Documented 07/15/19 07/17/19 15:17 08:00 Temp 35.6 Pulse 87 Resp 20 B/P (MAP) 129/99 (109) Pulse Ox 96 O2 Delivery Room Air O2 Flow Rate 1.00 Capillary Refill : Less Than 3 SecondsLess Than 3 Seconds General Appearance: WD/WN, no apparent distress Eyes: Bilateral Eye PERRL, Bilateral Eye EOMI HEENT: pharynx normal; No scleral icterus (R), No scleral icterus (L); other (mucous membranes moist) Neck: supple, normal inspection; No thyromegaly Respiratory: chest non-tender, lungs clear, normal breath sounds, no respiratory distress, no accessory muscle use Cardiovascular: regular rate, rhythm, no murmur Gastrointestinal: normal bowel sounds, non tender, soft, no organomegaly, no pulsatile mass Back: no CVA tenderness, no vertebral tenderness Extremities: no pedal edema, no calf tenderness, normal capillary refill Neurologic/Psychiatric: vessel slagman II-XII nml as tested, alert, normal mood/affect, oriented x 3 Skin: normal color, warm/dry Lymphatic: no adenopathy (neck, axilla or groin) Assessment/Plan Assessment/Plan Assessment/Plan Coffee Ground Emesis Anemia Pelvic Fx DM Pt had some dark black vomit, not sent for hemoccult but most likely because of blood. She is also anemic; which is new for her. I believe she would benefit from an EGD to rule out any ulcers or upper GI bleed. She probably also needs a repeat colonoscopy as an outpt. We discussed the risks and complications of EGD; not limited to pain, bleeding and even esophageal perforation. Consent ordered and will take her today to do the EGD. Clinical Quality Measures DVT/VTE Risk/Contraindication: Risk Factor Score Per Nursin RFS Level Per Nursing on Admit: 4+=Very High CHAPIS MILLS DO Jul 17, 2019 11:01
[2019-07-17] MEDS ORDERED: HURRICAINE EXT TUBE (BENZOCAINE) ONE (11:55)
[2019-07-17] MEDS ORDERED: LACTATED RINGERS 1,000 ML IV ONE (11:56)
[2019-07-17 12:00] LABS: BASOPHILS % (AUTO) 0 % (0-10); EOSINOPHILS # (AUTO) 0.1 10^3/uL (0.0-0.3); EOSINOPHILS % (AUTO) 1 % (0-10); HEMATOCRIT 28 % (35-52); HEMOGLOBIN 8.1 G/DL (11.5-16.0); LYMPHOCYTES # (AUTO) 1.1 X 10^3 (1.0-4.0); LYMPHOCYTES % (AUTO) 16 % (12-44); MEAN CORPUSCULAR HEMOGLOBIN 22 PG (25-34); MEAN CORPUSCULAR HGB CONC 30 G/DL (32-36); MEAN CORPUSCULAR VOLUME 74 FL (80-99); MEAN PLATELET VOLUME 9.6 FL (7.4-10.4); MONOCYTES # (AUTO) 0.7 X 10^3 (0.0-1.0); MONOCYTES % (AUTO) 9 % (0-12); NEUTROPHILS # (AUTO) 5.3 X 10^3 (1.8-7.8); NEUTROPHILS % (AUTO) 74 % (42-75); PLATELET COUNT 345 10^3/uL (130-400); RED CELL DISTRIBUTION WIDTH 17.8 % (10.0-14.5); WHITE BLOOD COUNT 7.2 10^3/uL (4.3-11.0)
[2019-07-17] MEDS ORDERED: MIDAZOLAM 2 MG/2 ML (VERSED) VIAL ONE (12:01)
[2019-07-17] MEDS ORDERED: PROPOFOL INJECTION 50 ML IV ONE (12:01)
[2019-07-17] MEDS ORDERED: LIDOCAINE PF 2% 5 ML (XYLOCAINE) VIAL ONE (12:02)
[2019-07-17 12:19] LABS: ALANINE AMINOTRANSFERASE 8 U/L (0-55); ALBUMIN 3.9 GM/DL (3.2-4.5); ALKALINE PHOSPHATASE 45 U/L (40-136); BILIRUBIN,TOTAL 0.5 MG/DL (0.1-1.0); BUN/CREATININE RATIO 38; CALCIUM 8.6 MG/DL (8.5-10.1); CARBON DIOXIDE 23 MMOL/L (21-32); CHLORIDE 100 MMOL/L (98-107); CREATININE SERUM 0.63 MG/DL (0.60-1.30); GFR ESTIMATED > 60; GLUCOSE 127 MG/DL (70-105); SODIUM 134 MMOL/L (135-145); TOTAL PROTEIN 6.3 GM/DL (6.4-8.2)
--- NOTE | 2019-07-17 12:34 | Progress Note-Post Operative ---
Post-Operative Progess Note Surgeon (s)/Wall Covering Installer (s) Surgeon CHAPIS MILLS DO Wall Covering Installer: none Pre-Operative Diagnosis coffee ground emesis, anemia Post-Operative Diagnosis Gastric Ulcers Hiatal hernia Esophagitis Procedure & Operative Findings Date of Procedure 07/17/19 Procedure Performed/Findings EGD with bx Anesthesia Type IV sedation by BUILDING STONECUTTER Estimated Blood Loss Estimated blood loss (mL): scant Specimens/Packing Specimens Removed gastric bx CHAPIS MILLS DO Jul 17, 2019 12:34
--- NOTE | 2019-07-17 12:35 | Progress Note - Hospitalist ---
Subjective HPI/CC On Admission Date Seen by Provider: Jul 17, 2019 Time Seen by Provider: 13:00 Subjective/Events-last exam EGD performed today due to hematemesis last night Lovenox held PPI maintained Awaiting insurance approval for IRF vs SNF Anemia noted so added 1 dose of iron infusion and await iron level Review of Systems Musculoskeletal: back pain Objective Exam Vital Signs Vital Signs Date Time Temp Pulse Resp B/P (MAP) Pulse Ox O2 Delivery O2 Flow Rate FiO2 07/17/19 16:00 37.9 87 16 118/64 (82) 96 Room Air 07/17/19 12:45 2 Capillary Refill : Less Than 3 SecondsLess Than 3 Seconds General Appearance: No Apparent Distress, WD/WN, Chronically ill Results/Procedures Lab Laboratory Tests 07/17/19 11:44 Patient resulted labs reviewed. Assessment/Plan Assessment and Plan Assess & Plan/Chief Complaint Assessment: Severe pain Pelvic fracture inoperable Gastric ulcers causing hematemesis Anemia with microcytosis Plan: PPI Hold Lovenox Pain meds Diagnosis/Problems Diagnosis/Problems (1) Pelvic fracture Status: Acute Qualifiers: Encounter type: initial encounter Pelvic bone location: ischium Fracture type: closed Fracture morphology: unspecified fracture morphology Fracture alignment: displaced Laterality: right Qualified Codes: S32.601A - Unspecified fracture of right ischium, initial encounter for closed fracture (2) Gastric ulcer (3) Anemia (4) Microcytic anemia (5) Fall on same level Status: Acute Qualifiers: Encounter type: initial encounter Qualified Codes: W18.30XA - Fall on same level, unspecified, initial encounter Clinical Quality Measures DVT/VTE Risk/Contraindication: Risk Factor Score Per Nursin RFS Level Per Nursing on Admit: 4+=Very High FELIX KERNS DO Jul 17, 2019 12:35
[2019-07-17] MEDS ORDERED: IRON SUCROSE 200 MG/10 ML (VENOFER) VIAL IV ONE (12:45)
[2019-07-17] MEDS ORDERED: LACTATED RINGERS 1,000 ML IV STA (13:24)
[2019-07-17] MEDS ORDERED: HURRICAINE EXT TUBE (BENZOCAINE) XX PRN (13:30)
--- NOTE | 2019-07-17 15:15 | Anesthesia-General Post-Op ---
MAC Patient Condition Mental Status/LOC: Same as Preop Cardiovascular: Satisfactory Nausea/Vomiting: Absent Respiratory: Satisfactory Pain: Controlled Complications: Absent Post Op Complications Complications None Follow Up Care/Instructions Patient Instructions None needed. Anesthesiology Discharge Order Discharge Order Patient is doing well, no complaints, stable vital signs, no apparent adverse anesthesia problems. No complications reported per nursing. CLARY PIZARRO CRNA Jul 17, 2019 15:15
--- NOTE | 2019-07-17 15:25 | OPERATIVE REPORT ---
DATE OF SERVICE: PREOPERATIVE DIAGNOSES: Coffee ground emesis and anemia. POSTOPERATIVE DIAGNOSES: Coffee ground emesis and anemia plus gastritis, large hiatal hernia and esophagitis. PROCEDURE: EGD with biopsy. SURGEON: Crobin Garza DO CHEMISTRY FACULTY MEMBER: None. ANESTHESIA: IV sedation by the APPLIANCE SALES ASSOCIATE. SPECIMEN: Biopsy from the stomach. BLOOD LOSS: Scant. FLUIDS: Per anesthesia. POSTOPERATIVE CONDITION: Stable. INDICATION FOR PROCEDURE: The patient is a 68-year-old female, who recently fractured her pelvis and then late last night, had a coffee ground emesis. Also found to be anemic, needed a workup. FINDINGS: The patient had a pretty severe hiatal hernia with a lot of stomach in the chest and it appeared that in this area, there was gastritis and had an old bleeding. PROCEDURE NOTE: After informed consent was obtained, the patient was brought to the endoscopy suite and placed in the left lateral decubitus position. She was administered IV sedation by the APPLIANCE SALES ASSOCIATE who monitored her vitals the entire time, heart rate, blood pressure and pulse ox and the scope was inserted down the mouth through the esophagus and into the stomach. However, upon reaching the distal portion of the esophagus found a large portion of the stomach up above the diaphragm, while trying to push in could actually not get into the stomach, could see the most of the gastric body, but could not see the antrum and when pushing further I just curled up in the chest and actually able to take a picture of the scope. In this area, there were signs of old bleeding. No active bleeding at this time, looked like there were some ulcerations. Elected to do a biopsy. I tried numerous times to get into the rest of the stomach to push through, but unfortunately could not. It just kept curling up in the chest cavity. At this time, I elected to stop, suctioned the air out of the stomach, pulled the scope up the esophagus and out the mouth. The patient tolerated the procedure, recovered in endoscopy suite. Job ID: [id number] DocumentID: [id number] Dictated Date: 07/17/2019 12:50:26 Housing Management Officer Date: 07/17/2019 15:24:53 Dictated By: CORBIN GARZA DO
[2019-07-17] MEDS: PANTOPRAZOLE 40 MG (PROTONIX) VIAL IV SCH (16:21)
[2019-07-18] VITALS (9 sets, daily range): BP systolic 107–124; BP diastolic 59–76
[2019-07-18] MEDS: LACTATED RINGERS 1,000 ML IV SCH ×2 (06:00→21:40)
[2019-07-18] MEDS: metFORMIN 500 MG (GLUCOPHAGE) TAB PO SCH ×2 (06:02→18:10)
[2019-07-18] MEDS: CATHETER FLUSH 10 ML SYR IV SCH ×3 (06:08→22:00)
[2019-07-18 06:18] LABS: BASOPHILS # (AUTO) 0.1 10^3/uL (0.0-0.1); BASOPHILS % (AUTO) 1 % (0-10); EOSINOPHILS # (AUTO) 0.2 10^3/uL (0.0-0.3); EOSINOPHILS % (AUTO) 3 % (0-10); HEMATOCRIT 23 % (35-52); LYMPHOCYTES # (AUTO) 1.4 X 10^3 (1.0-4.0); LYMPHOCYTES % (AUTO) 27 % (12-44); MEAN CORPUSCULAR HEMOGLOBIN 21 PG (25-34); MEAN CORPUSCULAR HGB CONC 28 G/DL (32-36); MEAN CORPUSCULAR VOLUME 74 FL (80-99); MONOCYTES # (AUTO) 0.6 X 10^3 (0.0-1.0); MONOCYTES % (AUTO) 11 % (0-12); NEUTROPHILS % (AUTO) 58 % (42-75); PLATELET COUNT 268 10^3/uL (130-400); WHITE BLOOD COUNT 5.2 10^3/uL (4.3-11.0)
[2019-07-18 06:21] LABS: HEMOGLOBIN 6.6 G/DL (11.5-16.0)
[2019-07-18] MEDS ORDERED: NS IV 500 ML 500 ML IV SCH (06:30)
--- NOTE | 2019-07-18 06:31 | NUR ---
CRITICAL HBG OF 6.6, DR KERNS NOTIFIED, NEW ORDER RECEIVED SEE ORDER HISTORY
[2019-07-18 06:40] LABS: ALANINE AMINOTRANSFERASE 7 U/L (0-55); ALBUMIN 3.3 GM/DL (3.2-4.5); ALKALINE PHOSPHATASE 38 U/L (40-136); BILIRUBIN,TOTAL 0.3 MG/DL (0.1-1.0); BUN/CREATININE RATIO 17; CALCIUM 8.2 MG/DL (8.5-10.1); CARBON DIOXIDE 25 MMOL/L (21-32); CHLORIDE 102 MMOL/L (98-107); GFR ESTIMATED > 60; GLUCOSE 99 MG/DL (70-105); POTASSIUM 3.8 MMOL/L (3.6-5.0); SODIUM 136 MMOL/L (135-145); TOTAL PROTEIN 5.4 GM/DL (6.4-8.2)
[2019-07-18] MEDS ORDERED: NS IV 500 ML 500 ML ONE (08:47)
[2019-07-18] MEDS: PANTOPRAZOLE 40 MG (PROTONIX) VIAL IV SCH (09:04)
--- NOTE | 2019-07-18 10:43 | Progress Note - Surgery ---
[facility] 07/18/19 1043: Subjective Date Seen by a Provider: Jul 18, 2019 Time Seen by a Provider: 10:00 Subjective/Events-last exam Ms. Galdamez states that she is doing well. She was receiving a unit of Packed RBC, but couldn't comment on how she was feeling at the time, but did mentioned it leaking initially and was fixed by aid. She denies any throat pain, N/V/D/C or issues voiding. She does state that both of her UE are sore due to use of the walker. She has no other complaints at this time. Review of Systems General: No Chills, No Fatigue HEENT: No Head Aches, No Visual Changes, No Dysphasia, No Sore Throat Pulmonary: No Dyspnea, No Cough Cardiovascular: No: Chest Pain, Palpitations, Lt Headedness Gastrointestinal: No: Nausea, Vomiting, Diarrhea, Constipation Genitourinary: No Dysuria, No Frequency, No Incontinence, No Hematuria Musculoskeletal: arm pain (Sore from using walker to ambulate ); No: neck pain, back pain Focused Exam Respiratory: Lungs Clear, Normal Breath Sounds, No Accessory Muscle Use, No Respiratory Distress Cardiovascular: Regular Rate, Rhythm, No Edema, No Gallop, No Murmur, Normal Peripheral Pulses Peripheral Pulses: 2+ Dorsalis Pedis (R), 2+ Left Dors-Pedis (L), 2+ Radial Pulses (R), 2+ Radial Pulses (L) Skin: normal color, warm/dry Objective Exam Vital Signs Date Time Temp Pulse Resp B/P (MAP) Pulse Ox O2 Delivery O2 Flow Rate FiO2 07/18/19 09:26 36.7 89 17 117/74 94 Room Air 07/18/19 09:12 36.8 84 18 107/68 97 Nasal Cannula 1.00 07/18/19 09:00 36.8 84 18 107/68 (81) 97 Nasal Cannula 1.00 07/18/19 08:39 96 Nasal Cannula 1.00 07/18/19 08:01 Room Air 07/18/19 00:00 37.2 72 16 112/65 (81) 96 Nasal Cannula 1.00 07/17/19 22:00 Nasal Cannula 1.00 07/17/19 20:20 Room Air 1.00 07/17/19 19:55 36.7 79 16 106/63 (77) 94 Room Air 07/17/19 16:00 37.9 87 16 118/64 (82) 96 Room Air 07/17/19 13:00 36.8 83 20 108/65 (79) 95 Room Air 07/17/19 12:45 91 16 95 OxyMask 2 07/17/19 12:40 90 16 97 OxyMask 10 07/17/19 12:35 91 16 97 OxyMask 10 07/17/19 12:30 91 16 96 OxyMask 10 07/17/19 12:25 92 16 98 OxyMask 10 I & O 07/18/19 07:00 Intake Total 2757 ml Output Total 1280 ml Balance 1477 ml Capillary Refill : Less Than 3 SecondsLess Than 3 Seconds General Appearance: No Apparent Distress, WD/WN, Chronically ill HEENT: PERRL/EOMI Neck: Non Tender, Supple Respiratory: Lungs Clear, Normal Breath Sounds, No Accessory Muscle Use, No Respiratory Distress Cardiovascular: Regular Rate, Rhythm, No Edema, No Gallop, No Murmur, Normal Peripheral Pulses Peripheral Pulses: 2+ Dorsalis Pedis (R), 2+ Left Dors-Pedis (L), 2+ Radial Pulses (R), 2+ Radial Pulses (L) Gastrointestinal: normal bowel sounds, non tender, soft, no organomegaly, no pulsatile mass Extremity: Normal Capillary Refill, Normal Inspection, Normal Range of Motion, Non Tender, No Calf Tenderness, No Pedal Edema Neurologic/Psychiatric: Alert, Oriented x3, No Motor/Sensory Deficits, Normal Mood/Affect, inventory associate and 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 II-XII Norm as Tested Skin: Normal Color, Warm/Dry Results Lab Laboratory Tests 07/17/19 11:44: White Blood Count 7.2, Red Blood Count 3.72L, Hemoglobin 8.1L, Hematocrit 28L, Mean Corpuscular Volume 74L, Mean Corpuscular Hemoglobin 22L, Mean Corpuscular Hemoglobin Concent 30L, Red Cell Distribution Width 17.8H, Platelet Count 345, Mean Platelet Volume 9.6, Neutrophils (%) (Auto) 74, Lymphocytes (%) (Auto) 16, Monocytes (%) (Auto) 9, Eosinophils (%) (Auto) 1, Basophils (%) (Auto) 0, Neutrophils # (Auto) 5.3, Lymphocytes # (Auto) 1.1, Monocytes # (Auto) 0.7, Eosinophils # (Auto) 0.1, Basophils # (Auto) 0.0, Sodium Level 134L, Potassium Level 4.0, Chloride Level 100, Carbon Dioxide Level 23, Anion Gap 11, Blood Urea Nitrogen 24H, Creatinine 0.63, Estimat Glomerular Filtration Rate > 60, BUN/Creatinine Ratio 38, Glucose Level 127H, Calcium Level 8.6, Corrected Calcium 8.7, Iron Level <10L, Total Bilirubin 0.5, Aspartate Amino Transf (A ST/SGOT) 10, Alanine Aminotransferase (ALT/SGPT) 8, Alkaline Phosphatase 45, Total Protein 6.3L, Albumin 3.9 07/18/19 06:02: White Blood Count 5.2, Red Blood Count 3.15L, Hemoglobin 6.6*L, Hematocrit 23L, Mean Corpuscular Volume 74L, Mean Corpuscular Hemoglobin 21L, Mean Corpuscular Hemoglobin Concent 28L, Red Cell Distribution Width 18.0H, Platelet Count 268, Mean Platelet Volume 9.0, Neutrophils (%) (Auto) 58, Lymphocytes (%) (Auto) 27, Monocytes (%) (Auto) 11, Eosinophils (%) (Auto) 3, Basophils (%) (Auto) 1, Neutrophils # (Auto) 3.0, Lymphocytes # (Auto) 1.4, Monocytes # (Auto) 0.6, Eosinophils # (Auto) 0.2, Basophils # (Auto) 0.1, Sodium Level 136, Potassium Level 3.8, Chloride Level 102, Carbon Dioxide Level 25, Anion Gap 9, Blood Urea Nitrogen 10, Creatinine 0.60, Estimat Glomerular Filtration Rate > 60, BUN/Creatinine Ratio 17, Glucose Level 99, Calcium Level 8.2L, Corrected Calcium 8.8, Total Bilirubin 0.3, Aspartate Amino Transf (AST/SGOT) 10, Alanine Aminotransferase (ALT/SGPT) 7, Alkaline Phosphatase 38L, Total Protein 5.4L, Albumin 3.3 Assessment/Plan Assessment/Plan Assessment/Plan Anemia: - EGD performed yesterday by Dr. Mills; possible sign of ulceration but no active bleeding found at the time, significant hiatal hernia - Patient transfused with 2 units of RBC - CBC tomorrow - IVF NS 100 mL/hr. - Abdominal and Pelvic Xray if still anemic - Diet as tolerated Pelvic Fracture: - Encourage ambulation with walker - Monitor for increased swelling or bruising. DVT Prophylaxis: - SCD Clinical Quality Measures DVT/VTE Risk/Contraindication: Risk Factor Score Per Nursin RFS Level Per Nursing on Admit: 4+=Very High CORBIN MILLS DO 07/18/19 1400: Subjective Time Seen by a Provider: 13:13 Subjective/Events-last exam Pt seen and examined, she was actually on the toilet having melena. Pt feels a little weak and is getting blood transfusion. Review of Systems Pulmonary: No Dyspnea, No Cough Cardiovascular: No: Chest Pain, Palpitations Gastrointestinal: No: Nausea, Vomiting Objective Exam General Appearance: No Apparent Distress, Chronically ill, Thin Respiratory: Lungs Clear, Normal Breath Sounds, No Accessory Muscle Use Cardiovascular: Regular Rate, Rhythm, No Murmur Gastrointestinal: soft, no organomegaly Assessment/Plan Assessment/Plan Assessment/Plan Anemia - secondary to Upper GI bleed; which appeared to have stopped when inspected with EGD yesterday. Transfuse PRBC, recheck H/H, avoid any blood thinners. Hiatal Hernia - is probably the cause of GI bleed and anemia; it most likely should get repaired at tertiary facility. Supervisory-Addendum Brief Verification & Attestation Participated in pt care: history, MDM, physical Personally performed: exam, history, MDM Care discussed with: Medical Student Procedures: n/a Verification and Attestation of Medical Student E/M Service A medical student performed and documented this service. I then reviewed and verified all information documented by the medical student and made modifications to such information, when appropriate. I personally performed a physical exam, medical decision making and then discussed any differences between the notes and made revisions as necessary to create one note. Corbin Mills , 07/18/19 , 14:00 [facility] Jul 18, 2019 10:43 CORBIN MILLS DO Jul 18, 2019 14:00
--- NOTE | 2019-07-18 15:32 | Progress Note - Hospitalist ---
Subjective HPI/CC On Admission Date Seen by Provider: Jul 18, 2019 Time Seen by Provider: 10:00 Subjective/Events-last exam Patient had hgb 6.6 so 2 units of blood transfusion ordered Venofer will be initiated tomorrow after 1 dose yesterday Very low iron level noted Patient feels good otherwise Large soft stool in commode and odor was GIB like but hemoccult was negative No pain is reported as long as she doesn't move much Holding Lovenox due to bleeding risk Review of Systems General: Fatigue Objective Exam Vital Signs Vital Signs Date Time Temp Pulse Resp B/P (MAP) Pulse Ox O2 Delivery O2 Flow Rate FiO2 07/18/19 13:51 36.8 76 16 117/76 95 Room Air 07/18/19 09:12 1.00 Capillary Refill : Less Than 3 SecondsLess Than 3 Seconds General Appearance: No Apparent Distress, WD/WN, Chronically ill Respiratory: Chest Non Tender, Lungs Clear, Normal Breath Sounds, No Accessory Muscle Use, No Respiratory Distress Cardiovascular: Regular Rate, Rhythm, No Edema, No Gallop, No JVD, No Murmur, Normal Peripheral Pulses Neurologic/Psychiatric: Alert, Oriented x3, No Motor/Sensory Deficits, Normal Mood/Affect Results/Procedures Lab Laboratory Tests 07/18/19 06:02 Patient resulted labs reviewed. Assessment/Plan Assessment and Plan Assess & Plan/Chief Complaint Assessment: Severe pain Pelvic fracture inoperable Gastric ulcers causing hematemesis Anemia with microcytosis Severe anemia with transfusions ordered Plan: PPI Hold Lovenox Pain meds Transfusions Diagnosis/Problems Diagnosis/Problems (1) Pelvic fracture Status: Acute Qualifiers: Encounter type: initial encounter Pelvic bone location: ischium Fracture type: closed Fracture morphology: unspecified fracture morphology Fracture alignment: displaced Laterality: right Qualified Codes: S32.601A - Unspecified fracture of right ischium, initial encounter for closed fracture (2) Gastric ulcer (3) Anemia (4) Microcytic anemia (5) Fall on same level Status: Acute Qualifiers: Encounter type: initial encounter Qualified Codes: W18.30XA - Fall on same level, unspecified, initial encounter Clinical Quality Measures DVT/VTE Risk/Contraindication: Risk Factor Score Per Nursin RFS Level Per Nursing on Admit: 4+=Very High FELIX KERNS DO Jul 18, 2019 15:32
[2019-07-18 21:29] LABS: HEMOGLOBIN 10.2 G/DL (11.5-16.0)
[2019-07-18] MEDS: HYDROcodone/APAP 5 MG/325 MG (LORTAB) TAB PO PRN ×2 (21:43→22:15)
[2019-07-19] VITALS: BP 118/58
[2019-07-19 04:00] VITALS: BP 129/69
[2019-07-19 05:39] LABS: BASOPHILS # (AUTO) 0.1 10^3/uL (0.0-0.1); BASOPHILS % (AUTO) 2 % (0-10); EOSINOPHILS # (AUTO) 0.3 10^3/uL (0.0-0.3); EOSINOPHILS % (AUTO) 5 % (0-10); HEMATOCRIT 31 % (35-52); HEMOGLOBIN 9.4 G/DL (11.5-16.0); LYMPHOCYTES # (AUTO) 1.8 X 10^3 (1.0-4.0); LYMPHOCYTES % (AUTO) 35 % (12-44); MEAN CORPUSCULAR HEMOGLOBIN 23 PG (25-34); MEAN CORPUSCULAR HGB CONC 31 G/DL (32-36); MEAN CORPUSCULAR VOLUME 76 FL (80-99); MEAN PLATELET VOLUME 9.6 FL (7.4-10.4); MONOCYTES # (AUTO) 0.5 X 10^3 (0.0-1.0); MONOCYTES % (AUTO) 11 % (0-12); NEUTROPHILS # (AUTO) 2.4 X 10^3 (1.8-7.8); NEUTROPHILS % (AUTO) 48 % (42-75); PLATELET COUNT 264 10^3/uL (130-400)
[2019-07-19] MEDS: LACTATED RINGERS 1,000 ML IV SCH (05:41)
[2019-07-19] MEDS: CATHETER FLUSH 10 ML SYR IV SCH ×3 (06:00→21:37)
[2019-07-19 06:10] LABS: ALANINE AMINOTRANSFERASE 7 U/L (0-55); ALBUMIN 3.4 GM/DL (3.2-4.5); ALKALINE PHOSPHATASE 43 U/L (40-136); BILIRUBIN,TOTAL 0.6 MG/DL (0.1-1.0); BUN/CREATININE RATIO 11; CALCIUM 8.4 MG/DL (8.5-10.1); CARBON DIOXIDE 26 MMOL/L (21-32); CHLORIDE 102 MMOL/L (98-107); CREATININE SERUM 0.63 MG/DL (0.60-1.30); GFR ESTIMATED > 60; GLUCOSE 89 MG/DL (70-105); POTASSIUM 3.7 MMOL/L (3.6-5.0); SODIUM 137 MMOL/L (135-145); TOTAL PROTEIN 5.6 GM/DL (6.4-8.2)
[2019-07-19] MEDS: PANTOPRAZOLE 40 MG (PROTONIX) VIAL IV SCH (07:37)
[2019-07-19 08:00] VITALS: BP 128/71
[2019-07-19] MEDS: metFORMIN 500 MG (GLUCOPHAGE) TAB PO SCH ×2 (08:05→16:54)
--- NOTE | 2019-07-19 08:44 | Occupational Ther Daily Note ---
OT Current Status-Daily Note Subjective Pt laying in bed at start of session, stating she feels like her pain is getting better. She did not verbalize pain rating. Mental Status/Objective Patient Orientation: Normal For Age Attachments: IV ADL-Treatment Therapy Code Descriptions/Definitions Functional Daniels Measure: 0=Not Assessed/NA 4=Minimal Assistance 1=Total Assistance 5=Supervision or Setup 2=Maximal Assistance 6=Modified Daniels 3=Moderate Assistance 7=Complete IndependenceSCALE: Activities may be completed with or without assistive devices. 1-Jrjmfjrydg-cbobkpa completes the activity by him/herself with no assistance from a helper. 5-Set-up or Clean-up Assistance-helper sets up or cleans up; patient completes activity. [place] assists only prior to or following the activity. 4-Supervision or Touching Assistance-helper provides verbal cues and/or touching/steadying and/or contact guard assistance as patient completes activity. Assistance may be provided throughout the activity or intermittently. 3-Partial/Moderate Assistance-helper does LESS THAN HALF the effort. [place] lifts, holds or supports trunk or limbs, but provides less than half the effort. 2-Substantial/Maximal Assistance-helper does MORE THAN HALF the effort. [place] lifts or holds trunk or limbs and provides more than half the effort. 5-Ntrsewhvu-foboxt does ALL the effort. Patient does none of the effort to complete the activity. Or, the assistance of 2 or more helpers is required for the patient to complete the activity. If activity was not attempted, code reason: 7-Patient Refused. 9-Not Applicable-not attempted and the patient did not perform the activity before the current illness, exacerbation or injury. 10-Not Attempted due to Environmental Limitations-(lack of equipment, weather restraints, etc.). 88-Not Attempted due to Medical Conditions or Safety Concerns. Oral Hygiene (QC): 5 (Set up assist at bed level. Pt used oral swab to clean her mouth, she declined using toothbrush and toothpaste due to stating she did not have any teeth.) Upper Body Dressing (QC): 3 (Pt required assistance donning/doffing gown over LUE due to managing around IV line. Pt able to don/doff gown over RUE.) Other Treatment Pt laying in bed, agreed to OT tx with focus on ADLs. She used an oral swab to clean her mouth, then washed her face with set up assistance, and changed her gown. Post OT session, pt laying in bed, call light in reach and all needs met. 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 2=Patient will verbalize/demonstrate understanding of assistive devices/modifications for ADL. 3=Patient will improve strength/tolerance for activity to enable patient to perform ADL's. OT Education/Plan Problem List/Assessment Assessment: Decreased Activ Tolerance, Impaired I ADL's, Impaired Self-Care Skills Discharge Recommendations Plan/Recommendations: Continue POC Treatment Plan/Plan of Care Patient would benefit from OT for education, treatment and training to promote independence in ADL's, mobility, safety and/or upper extremity function for ADL's. Plan of Care: ADL Retraining, Functional Mobility, UE Funct Exercise/Act Treatment Duration: Jul 23, 2019 Frequency: 5 times per week Estimated Hrs Per Day: .25 hour per day Agreement: Yes Rehab Potential: Fair Time/GCodes Start Time: 08:05 Stop Time: 08:16 Total Time Billed (hr/min): 11 Billed Treatment Time 1, ADL VERONICA LACEY OT Jul 19, 2019 08:44
[2019-07-19] MEDS ORDERED: IRON SUCROSE 200 MG/10 ML (VENOFER) VIAL IV SCH (09:00)
--- NOTE | 2019-07-19 10:10 | Progress Note - Hospitalist ---
Subjective HPI/CC On Admission Date Seen by Provider: Jul 19, 2019 Time Seen by Provider: 09:15 Subjective/Events-last exam Hgb 9.4 after two units of blood Iron infusions initiated today Social work evaluation for detention placement versus prior authorization for inpatient rehab will start PT and OT are working with her Will heplock her IV fluids since she is eating and drinking well Review of Systems General: Fatigue Musculoskeletal: back pain, leg pain Objective Exam Vital Signs Vital Signs Date Time Temp Pulse Resp B/P (MAP) Pulse Ox O2 Delivery O2 Flow Rate FiO2 07/19/19 15:35 37.0 77 17 104/67 (79) 93 Room Air 07/18/19 09:12 1.00 Capillary Refill : Less Than 3 SecondsLess Than 3 Seconds General Appearance: No Apparent Distress, WD/WN, Chronically ill Respiratory: Chest Non Tender, Lungs Clear, Normal Breath Sounds, No Accessory Muscle Use, No Respiratory Distress Cardiovascular: Regular Rate, Rhythm, No Edema, No Gallop, No JVD, No Murmur, Normal Peripheral Pulses Neurologic/Psychiatric: Alert, Oriented x3, No Motor/Sensory Deficits, Normal Mood/Affect Results/Procedures Lab Laboratory Tests 07/18/19 21:20 07/19/19 04:40 Patient resulted labs reviewed. Assessment/Plan Assessment and Plan Assess & Plan/Chief Complaint Assessment: Severe pain Pelvic fracture inoperable Gastric ulcers causing hematemesis Anemia with microcytosis Severe anemia with transfusions given Plan: PPI Hold Lovenox Pain meds Monitor hgb Diagnosis/Problems Diagnosis/Problems (1) Pelvic fracture Status: Acute Qualifiers: Encounter type: initial encounter Pelvic bone location: ischium Fracture type: closed Fracture morphology: unspecified fracture morphology Fracture alignment: displaced Laterality: right Qualified Codes: S32.601A - Unspecified fracture of right ischium, initial encounter for closed fracture (2) Gastric ulcer (3) Anemia (4) Microcytic anemia (5) Fall on same level Status: Acute Qualifiers: Encounter type: initial encounter Qualified Codes: W18.30XA - Fall on same level, unspecified, initial encounter Clinical Quality Measures DVT/VTE Risk/Contraindication: Risk Factor Score Per Nursin RFS Level Per Nursing on Admit: 4+=Very High FELIX KERNS DO Jul 19, 2019 10:10
--- NOTE | 2019-07-19 10:18 | Physical Therapy Daily Note ---
PT Daily Note-Current Subjective Patient agrees to PT. Pain Numeric Pain Scale: 8 Location: Right Location Body Site: Pelvic Pain Description: Acute Mental Status Patient Orientation: Normal For Age Transfers SCALE: Activities may be completed with or without assistive devices. 8-Psdltmokgo-uznngpg completes the activity by him/herself with no assistance from a helper. 5-Set-up or Clean-up Assistance-helper sets up or cleans up; patient completes activity. [place] assists only prior to or following the activity. 4-Supervision or Touching Assistance-helper provides verbal cues and/or touching/steadying and/or contact guard assistance as patient completes activ ity. Assistance may be provided throughout the activity or intermittently. 3-Partial/Moderate Assistance-helper does LESS THAN HALF the effort. [place] lifts, holds or supports trunk or limbs, but provides less than half the effort. 2-Substantial/Maximal Assistance-helper does MORE THAN HALF the effort. [place] lifts or holds trunk or limbs and provides more than half the effort. 5-Xlwojkpzs-ewoniv does ALL the effort. Patient does none of the effort to complete the activity. Or, the assistance of 2 or more helpers is required for the patient to complete the activity. If activity was not attempted, code reason: 7-Patient Refused. 9-Not Applicable-not attempted and the patient did not perform the activity before the current illness, exacerbation or injury. 10-Not Attempted due to Environmental Limitations-(lack of equipment, weather restraints, etc.). 88-Not Attempted due to Medical Conditions or Safety Concerns. Roll Left & Right (QC): 5 Sit to Lying (QC): 5 Lying to Sitting/Side of Bed(Q: 5 Sit to Stand (QC): 4 Chair/Qmz-yy-Fxeke Xfer(QC): 4 Toilet Transfer (QC): 4 Weight Bearing Right Lower Extremity: Right Weight Bearing/Tolerated Left Lower Extremity: Left Weight Bearing/Tolerated Gait Training Does the Patient Walk?: Yes Distance: 30' Walk 10 feet (QC): 4 Gait Assistive Device: FWW very, very slow and antalgic Assessment Patient requires much time to complete functional tasks. Patient ambulated 30' in 23 min. PT to increase activity as tolerated by patient. PT Detention Goals Detention Goals PT Detention Goals Time Frame: Jul 23, 2019 Roll Left & Right (QC): 6 Sit to Lying (QC): 6 Lying-Sitting on Side/Bed(QC): 6 Sit to Stand (QC): 6 Chair/Ykf-ut-Vgalx Xfer(QC): 6 Toilet Transfer (QC): 6 Car Transfer (QC): 6 Does the Patient Walk: Yes Walk 10 feet (QC): 6 Walk 50ft with 2 Turns (QC): 6 Walk 150 ft (QC): 6 Walking 10ft on Uneven Surface: 6 PT Plan Treatment/Plan Treatment Plan: Continue Plan of Care Treatment Plan: Bed Mobility, Education, Functional Activity Av, Functional Strength, Gait, Safety, Therapeutic Exercise, Transfers Treatment Duration: Jul 23, 2019 Frequency: 11 times per week Estimated Hrs Per Day: .5 hour per day Patient and/or Family Agrees t: Yes Time/GCodes Time In: 847 Time Out: 910 Total Billed Treatment Time: 23 Total Billed Treatment 1 visit GT x 2 23 min FAIZA [place] PT Jul 19, 2019 10:18
--- NOTE | 2019-07-19 13:19 | Physical Therapy Daily Note ---
PT Daily Note-Current Subjective Patient had just returned to bed via nursing. Agrees to PT. Pain Numeric Pain Scale: 6 Location: Right Location Body Site: Pelvic Pain Description: Acute Mental Status Patient Orientation: Normal For Age Transfers SCALE: Activities may be completed with or without assistive devices. 2-Ofabkvmceo-[id number] completes the activity by him/herself with no assistance from a helper. 5-Set-up or Clean-up Assistance-helper sets up or cleans up; patient completes activity. Laurel assists only prior to or following the activity. 4-Supervision or Touching Assistance-helper provides verbal cues and/or touching/steadying and/or contact guard assistance as patient completes activity. Assistance may be provided throughout the activity or intermittently. 3-Partial/Moderate Assistance-helper does LESS THAN HALF the effort. Laurel lifts, holds or supports trunk or limbs, but provides less than half the effort. 2-Substantial/Maximal Assistance-helper does MORE THAN HALF the effort. Laurel lifts or holds trunk or limbs and provides more than half the effort. 1-Zfziwonsv-rbsybc does ALL the effort. Patient does none of the effort to complete the activity. Or, the assistance of 2 or more helpers is required for the patient to complete the activity. If activity was not attempted, code reason: 7-Patient Refused. 9-Not Applicable-not attempted and the patient did not perform the activity befo re the current illness, exacerbation or injury. 10-Not Attempted due to Environmental Limitations-(lack of equipment, weather re straints, etc.). 88-Not Attempted due to Medical Conditions or Safety Concerns. Roll Left & Right (QC): 5 Sit to Lying (QC): 5 Lying to Sitting/Side of Bed(Q: 5 Sit to Stand (QC): 5 Toilet Transfer (QC): 5 Weight Bearing Right Lower Extremity: Right Weight Bearing/Tolerated Left Lower Extremity: Left Weight Bearing/Tolerated Gait Training Does the Patient Walk?: Yes Distance: 60' Walk 10 feet (QC): 5 Walk 50 ft with 2 Turns(QC): 5 Gait Assistive Device: FWW very, very slow and antalgic step to gait sequence Assessment Patient on commode with call light in hand. PT to increase activity as tolerated by patient. Patient is improving slowly with treatment plan. PT Senior Care Goals Senior Care Goals PT Senior Care Goals Time Frame: Jul 23, 2019 Roll Left & Right (QC): 6 Sit to Lying (QC): 6 Lying-Sitting on Side/Bed(QC): 6 Sit to Stand (QC): 6 Chair/[id number] Xfer(QC): 6 Toilet Transfer (QC): 6 Car Transfer (QC): 6 Does the Patient Walk: Yes Walk 10 feet (QC): 6 Walk 50ft with 2 Turns (QC): 6 Walk 150 ft (QC): 6 Walking 10ft on Uneven Surface: 6 PT Plan Treatment/Plan Treatment Plan: Continue Plan of Care Treatment Plan: Bed Mobility, Education, Functional Activity Av, Functional Strength, Gait, Safety, Therapeutic Exercise, Transfers Treatment Duration: Jul 23, 2019 Frequency: 11 times per week Estimated Hrs Per Day: .5 hour per day Patient and/or Family Agrees t: Yes Time/GCodes Time In: 1250 Time Out: 1313 Total Billed Treatment Time: 23 Total Billed Treatment 1 visit GT x 2 23 min FAIZA [place] PT Jul 19, 2019 13:18
--- NOTE | 2019-07-19 13:30 | NUR ---
IRF Prior authorization process initiated and clinical information submitted to [facility]. Awaiting determination. Addendum: 07/20/19 at 0945 by AUGUST Naya OLMSTEAD Received denial of admission to ARU, from [facility]. CM/SS notified.
--- NOTE | 2019-07-19 14:53 | Progress Note - Surgery ---
Subjective Time Seen by a Provider: 12:28 Subjective/Events-last exam Pt seen and examined, states she feels stronger and denies abdominal pain. Pt is having BM's and denies melena. Review of Systems General: No Chills, No Night Sweats; Fatigue Pulmonary: No Dyspnea, No Cough Cardiovascular: No: Chest Pain, Palpitations Gastrointestinal: No: Nausea, Vomiting, Abdominal Pain Objective Exam Vital Signs Date Time Temp Pulse Resp B/P (MAP) Pulse Ox O2 Delivery O2 Flow Rate FiO2 07/19/19 08:00 37.3 92 18 128/71 (90) 93 Room Air 07/19/19 08:00 93 Room Air 07/19/19 07:58 92 Room Air 07/19/19 04:00 36.2 72 20 129/69 (89) 94 Room Air 07/19/19 00:00 36.6 86 20 118/58 (78) 97 Room Air 07/18/19 20:00 Room Air 07/18/19 15:23 36.9 74 18 124/59 (80) 96 Room Air I & O 07/19/19 07:00 Intake Total 1682 ml Balance 1682 ml Capillary Refill : Less Than 3 SecondsLess Than 3 Seconds General Appearance: No Apparent Distress, Chronically ill HEENT: PERRL/EOMI, Moist Mucous Membranes Respiratory: Chest Non Tender, Lungs Clear, Normal Breath Sounds, No Accessory Muscle Use, No Respiratory Distress Cardiovascular: Regular Rate, Rhythm, No Murmur Peripheral Pulses: 2+ Dorsalis Pedis (R), 2+ Left Dors-Pedis (L), 2+ Radial Pulses (R), 2+ Radial Pulses (L) Gastrointestinal: non tender, soft, no organomegaly Extremity: No Calf Tenderness, No Pedal Edema Neurologic/Psychiatric: Alert, Oriented x3, Normal Mood/Affect Results Lab Laboratory Tests 07/18/19 21:20: Hemoglobin 10.2#L, Hematocrit 33L 07/19/19 04:40: Hemoglobin 9.4L, Hematocrit 31L, White Blood Count 5.0, Red Blood Count 4.04L, Mean Corpuscular Volume 76L, Mean Corpuscular Hemoglobin 23L, Mean Corpuscular Hemoglobin Concent 31L, Red Cell Distribution Width 18.0H, Platelet Count 264, Mean Platelet Volume 9.6, Neutrophils (%) (Auto) 48, Lymphocytes (%) (Auto) 35, Monocytes (%) (Auto) 11, Eosinophils (%) (Auto) 5, Basophils (%) (Auto) 2, Neutrophils # (Auto) 2.4, Lymphocytes # (Auto) 1.8, Monocytes # (Auto) 0.5, Eosinophils # (Auto) 0.3, Basophils # (Auto) 0.1, Sodium Level 137, Potassium Level 3.7, Chloride Level 102, Carbon Dioxide Level 26, Anion Gap 9, Blood Urea Nitrogen 7, Creatinine 0.63, Estimat Glomerular Filtration Rate > 60, BUN/Creatinine Ratio 11, Glucose Level 89, Calcium Level 8.4L, Corrected Calcium 8.9, Total Bilirubin 0.6, Aspartate Amino Transf (AST/SGOT) 11, Alanine Aminotransferase (ALT/SGPT) 7, Alkaline Phosphatase 43, Total Protein 5.6L, Albumin 3.4 07/19/19 11:20: Lab Scanned Report Transfusion Reaction Form Assessment/Plan Assessment/Plan Assessment/Plan Anemia - secondary to Upper GI bleed; which appears to have stopped. +BM's today and no melena. Hg back to appx 9 after transfusion. Hiatal Hernia - is probably the cause of GI bleed and anemia; it most likely should get repaired at tertiary facility. Clinical Quality Measures DVT/VTE Risk/Contraindication: Risk Factor Score Per Nursin RFS Level Per Nursing on Admit: 4+=Very High CHAPIS MILLS DO Jul 19, 2019 14:53
--- NOTE | 2019-07-19 15:34 | Progress Note - Surgery ---
Subjective Time Seen by a Provider: 14:28 Subjective/Events-last exam Pt seen and examined, no new complaints. States she is still having BM's but no more melena. Review of Systems General: No Chills, No Night Sweats; Malaise Pulmonary: No Dyspnea, No Cough Cardiovascular: No: Chest Pain, Palpitations Gastrointestinal: No: Abdominal Pain Objective Exam Vital Signs Date Time Temp Pulse Resp B/P (MAP) Pulse Ox O2 Delivery O2 Flow Rate FiO2 07/19/19 08:00 37.3 92 18 128/71 (90) 93 Room Air 07/19/19 08:00 93 Room Air 07/19/19 07:58 92 Room Air 07/19/19 04:00 36.2 72 20 129/69 (89) 94 Room Air 07/19/19 00:00 36.6 86 20 118/58 (78) 97 Room Air 07/18/19 20:00 Room Air 07/18/19 15:23 36.9 74 18 124/59 (80) 96 Room Air I & O 07/19/19 07:00 Intake Total 1682 ml Balance 1682 ml Capillary Refill : Less Than 3 SecondsLess Than 3 Seconds General Appearance: No Apparent Distress, WD/WN, Chronically ill HEENT: PERRL/EOMI Neck: Non Tender, Supple Respiratory: Chest Non Tender, Lungs Clear, Normal Breath Sounds, No Accessory Muscle Use, No Respiratory Distress Cardiovascular: Regular Rate, Rhythm, No Murmur Peripheral Pulses: 2+ Dorsalis Pedis (R), 2+ Left Dors-Pedis (L), 2+ Radial Pulses (R), 2+ Radial Pulses (L) Gastrointestinal: soft, no organomegaly; No distended Extremity: No Calf Tenderness, No Pedal Edema Neurologic/Psychiatric: Alert, Oriented x3, Normal Mood/Affect Results Lab Laboratory Tests 07/18/19 21:20: Hemoglobin 10.2#L, Hematocrit 33L 07/19/19 04:40: Hemoglobin 9.4L, Hematocrit 31L, White Blood Count 5.0, Red Blood Count 4.04L, Mean Corpuscular Volume 76L, Mean Corpuscular Hemoglobin 23L, Mean Corpuscular Hemoglobin Concent 31L, Red Cell Distribution Width 18.0H, Platelet Count 264, Mean Platelet Volume 9.6, Neutrophils (%) (Auto) 48, Lymphocytes (%) (Auto) 35, Monocytes (%) (Auto) 11, Eosinophils (%) (Auto) 5, Basophils (%) (Auto) 2, Neutrophils # (Auto) 2.4, Lymphocytes # (Auto) 1.8, Monocytes # (Auto) 0.5, Eosinophils # (Auto) 0.3, Basophils # (Auto) 0.1, Sodium Level 137, Potassium Level 3.7, Chloride Level 102, Carbon Dioxide Level 26, Anion Gap 9, Blood Urea Nitrogen 7, Creatinine 0.63, Estimat Glomerular Filtration Rate > 60, BUN/Creatinine Ratio 11, Glucose Level 89, Calcium Level 8.4L, Corrected Calcium 8.9, Total Bilirubin 0.6, Aspartate Amino Transf (AST/SGOT) 11, Alanine Aminotransferase (ALT/SGPT) 7, Alkaline Phosphatase 43, Total Protein 5.6L, Albumin 3.4 07/19/19 11:20: Lab Scanned Report Transfusion Reaction Form Assessment/Plan Assessment/Plan Assessment/Plan Melena - resolved Anemia - secondary to Upper GI bleed; which appears to have stopped. Should have colonoscopy as an outpt. Hiatal Hernia - is probably the cause of GI bleed and anemia; it most likely should get repaired at tertiary facility. Clinical Quality Measures DVT/VTE Risk/Contraindication: Risk Factor Score Per Nursin RFS Level Per Nursing on Admit: 4+=Very High CHAPIS MILLS DO Jul 19, 2019 15:34
[2019-07-19 15:35] VITALS: BP 104/67
[2019-07-19] MEDS: HYDROcodone/APAP 5 MG/325 MG (LORTAB) TAB PO PRN (21:37)
--- OUTSIDE RECORDS SUMMARY | 2019-07-19 23:12 | XMS REPORT ---
Author Author [employer] Organization [employer] Address [address] [place] [address] Care Team Providers Care [facility] Attendant Name Role Phone DISLA, ELLEN Unavailable Unavailable TOSHIA TOSHIA K Unavailable DISLA, ELLEN Unavailable DISLA, ELLEN Unavailable DISLA, ELLEN Unavailable DISLA, ELLEN Unavailable DISLA, ELLEN Unavailable DISLA, ELLEN Unavailable DISLA, ELLEN Unavailable DISLA, ELLEN Unavailable DISLA, ELLEN Unavailable DISLA, ELLEN Unavailable DISLA, ELLEN Unavailable DISLA, ELLEN Unavailable DISLA, ELLEN Unavailable DISLA, ELLEN Unavailable DISLA, ELLEN Unavailable DISLA, ELLEN Unavailable MODE SCHILLING FAC, [facility] Unavailable Unavailabl e ERIC GLORIA DO Unavailable Unavailable DISLA ELLEN R CFNP Unavailable Unavailable TOSHIA TOSHIA K Unavailable YAN LARIOS DO Unavailable Unavailable Migration, Doctor Unavailable Unavailable Migration, Doctor Unavailable Unavailable Migration, Doctor Unavailable Unavailable Migration, Doctor Unavailable Unavailable Migration, Doctor Unavailable Unavailable Migration, Doctor Unavailable Unavailable Migration, Doctor Unavailable Unavailable DISLAELLEN Conrad R Unavailable Unavailable MODE SCHILLING FACC, ALI FACP CCDS Unavailable Unavailabl e Migration, Doctor Unavailable Unavailable VIIK [employer] WRITER Unavailable Unavailable CHAPIS CALDERON MD Unavailable Unavailable CHAPIS CALDERON MD Unavailable Unavailable DISLA, ELLEN Unavailable DISLA, ELLEN Unavailable DISLA, ELLEN Unavailable DISLA, ELLEN Unavailable DISLA, ELLEN Unavailable DISLA, ELLEN Unavailable Migration, Doctor Unavailable Unavailable DISLA, ELLEN Unavailable DISLA, ELLEN Unavailable DISLA, ELLEN Unavailable DISLA, ELLEN Unavailable DISLA, ELLEN Unavailable DISLA, ELLEN Unavailable DISLA, ELLEN Unavailable DISLA, ELLEN Unavailable Allergies The data below is from unstructured sourcesNo Known Allergies No Known Allergies No Known Allergies No Known Allergies No Known Allergies No Known Allergies No Known Allergies No Known Allergies No Known Allergies No Known Allergies No Known Allergies No Known Allergies No Known Allergies No Known Allergies No Known Allergies No Known Allergies No Known Allergies No Known Allergies No Known Allergies No Known Allergies No Known Allergies No Known Allergies No Known Allergies No Known Allergies No Known Allergies No Known Allergies No Known Allergies No Known Allergies No Known Allergies No Information No Information No Information No Information No Information No Information No Information No Information No Information No Information No Information No Information No Information No Information No Information No Information No Information No Information No Information No Information No Information No Information No Information No Information No Information No Information No Information No Information No Information No Information No Information No Information No Information No Information No Information No Information No Information No Information No Information No Information No Information No Information No Information No Information No Information No Information No Information No Information No Information No Information No Information No Information No Information No Information No Information No Information No Information No Information Medications Current Medications Medication Ingredient Drug Dose Dates Status Sig Sig Care Class(es) (Normalized) (Original) Provid er clindamycin Clindamycin Lincosamide 300 mg 12-26-19 Active take 1 Clindamycin no 300 mg oral Translation Antibacteri 12 capsule by HCl 300 mg 1 name capsule (1 s: [ al mouth every capsule by (no source.) Clindamycin twelve hours Oral route phone) HCl 300 mg] every 12 hours for 10 day(s) Dec, Active levoFLOXaci levoFLOXaci Quinolone 500 mg 10-27-19 Active take 1 Levaquin 500 no n 500 mg n Antimicrobi 13 tablet by mg 1 tablet n kirk oral tablet Translation al mouth every by Oral (no (1 source.) s: [ twenty-four route every phone) Levaquin hours 24 hours for 500 mg] 10 days Oct, Active no Macrobid no 100 mg 05-20-19 Active take 1 Macrobid n o information macrocrysta information 12 capsule by macrocr ystal name (1 source.) ls 100 mg mouth twice s 100 mg (no daily SI phone) cap(s) orally 2 times a day for 7 day(s) May, Active magnesium Magnesium no 400 mg Active take 1 Magnesium no oxide 400 Oxide information tablet by Oxide 400 mg name mg oral Translation mouth twice Orally 2 (no tablet (2 s: [ daily as times a day phone) sources.) Magnesium needed 1 tablet as Oxide 400 needed 12h mg] Active naproxen Naproxen Nonsteroida 500 mg 06-09-19 Active take 1 Napr osyn 500 no 500 mg oral Translation l 15 tablet by mg 1 tablet name tablet (1 s: [ Anti-inflam mouth twice by Oral (no source.) Naprosyn matory Drug daily route 2 phone) 500 mg] times per day May, Active nitrofurant nitrofurant no 100 mg 07-18-19 Active no Mac robid 100 no oin, oin information 18 - information mg Orally n kirk macrocrysta Translation 07-25-19 every 12 hrs (no ls 25 mg / s: [ 18 1 capsule phone) nitrofurant Macrobid with food oin, 100 mg] 12h Jul, monohydrate 2017, 75 mg oral 2017 7 capsule (1 day(s) source.) Active oseltamivir Oseltamivir Neuraminida 75 mg 07-01-19 Active take 1 Tamiflu 75 no 75 mg oral Translation se 13 capsule by mg 1 capsule name capsule (1 s: [ Inhibitor mouth twice by Oral (no source.) Tamiflu 75 daily route 2 phone) mg] times per day for 5 day(s) Prophylaxis Dosing Jun, Active potassium Potassium no 10 mEq Active take 1 Potassium no chloride 10 Chloride information tablet by Chloride ER name meq Translation mouth once 10 MEQ (no extended s: [ daily at Orally Once phone) release Potassium mealtime a day 1 oral tablet Chloride ER tablet with (2 10 MEQ] food 24h sources.) Active no ProAir HFA no 2 07-27-19 Active take 2 ProAir HF A no information 90 information puff(s 15 puff(s) by 90 n kirk (1 source.) mcg/actuati ) inhalation mcg/actuatio (no on every four n inhale 2 phone) hours as puffs by needed for Inhalation cough route every 4 hours as needed PRN shortness of breath/cough Jul, Active no Symbicort no 2 09-07-19 Active take 2 Symbicort no information 160 mcg-4.5 information puff(s 14 puff(s) by 160 mcg-4.5 name (1 source.) mcg/inh ) inhalation mcg/inh 2 (no twice daily puffs by phone) Inhalation route 2 times per day Aug, Active Completed/Discontinued Medications Medication Ingredient Drug Dose Dates Status Sig Sig Care Class(es) (Normalized) (Original) Provid er codeine codeine / Opioid 06-04-19 Suspende no Promethazine no phosphate 2 promethazin Agonist, 18 d information -Code ine name mg/ml / e Phenothiazi 6.25-10 (no promethazin Translation ne MG/5ML phone) e s: [ Orally 3 hydrochlori Promethazin times a day de 1.25 e-Codeine 5 ml as mg/ml oral 6.25-10 needed for solution (2 MG/5ML, severe cough sources.) Promethazin 8h May, e-Codeine 2018 6.25-10 Not-Taking MG/5ML] Problems Active Problems Problem Normalized Date of Normalized Normalized Provider Fac ility Classification Problem(s) Problem Problem Problem Sta tus Onset/Resoluti Duration on Acute Acute Episodic Active LAKEISHA Not Available bronchitis (4 bronchiolitis ALEKSANDRA (31516) sources.) due to other specified organisms Allergic Allergy status Episodic Active ERIC GLORIA No t Available reactions (18 to DO (77781) sources.) sulfonamides status Translations: [ DIARRHEA] Anxiety Anxiety Chronic Active CHAPIS CALDERON Not Avail able disorders (15 disorderMD (30537) sources.) unspecified Translations: [ ANXIETY STATE NOS] Other and Benign Episodic Active ERIC GLORIA , Not Avai lable unspecified neoplasm of DO (38371) benign colon neoplasm (4 sources.) Cardiac and Coronary Chronic Active ALI MODE , 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 lable circulatory artery anomaly MD BERUMEN () congenital anomalies (5 sources.) Other nervous Critical Chronic Active CHAPIS CALDERON , Not A vailable system illness () disorders (1 myopathy source.) Other Diarrhea, Episodic Active ANIYAH Not Availabl e gastrointestin unspecified MD CHELLE () al disorders (6 sources.) Other Disorders of Chronic Active CHAPIS CALDERON , Not A vailable nutritional; magnesium () endocrine; and metabolism metabolic disorders (1 source.) Fluid and Hypokalemia Episodic Active CHAPIS CALDERON , Not Av ailable electrolyte Translations: () disorders (5 [ sources.) HYPOPOTASSEMIA , HYPOSMOLALITY] Other Hypomagnesemia Chronic Active VIKI BAIMA Not Available nutritional; (06754) endocrine; and metabolic disorders (4 sources.) Other Hypotension, Episodic Active ALI MODE , Not Av ailable circulatory unspecified MD BERUMEN () disease (5 sources.) Other lobsterman Episodic Active ANIYAH Not Availabl e aftercare (14 (current) use MD CHELLE () sources.) of aspirin Other Long-term Episodic Active ALI MODE , Not Avail able aftercare (5 (current) use MD BERUMEN () sources.) of other medications Headache, Migraine, Chronic Active ANIYAH Not Availabl e including unspecified, MD CHELLE () migraine (6 not sources.) intractable, without status migrainosus Other Nonspecific Episodic Active ERIC GLORIA , Not A vailable gastrointestin abnormal DO (97836) al disorders findings in (4 sources.) stool contents Occlusion or Occlusion and Chronic Active ALI MODE , No t Available stenosis of stenosis of MD BERUMEN () precerebral bilateral arteries (20 carotid sources.) arteries Diabetes Other abnormal Episodic Active CHAPIS CALDERON , Not Available mellitus glucose () without Translations: complication [ OTHER (7 sources.) ABNORMAL GLUCOSE] Residual Other Episodic Active JOSE BERNOT Not Avail able codes; artificial (59029) unclassified opening status (8 sources.) Respiratory Other Chronic Active CHAPIS CALDERON , Not Porsha ilable failure; dependence on (07229) insufficiency; machines, arrest (adult) supplemental (1 source.) oxygen Other Other fecal Episodic Active ERICDORIS GLORIA , Not A vailable gastrointestin abnormalities DO (03024) al disorders (12 sources.) Other lower Other forms of Episodic Active YANJOSÉ ANTONIO LARIOS , Not Available respiratory dyspnea DO (12938) disease (20 sources.) Hemorrhoids (7 Other Episodic Active ERIC GLORIA , Not Available sources.) hemorrhoids DO (55792) Other Other long Episodic Active ERIC GLORIA , Not Av ailable aftercare (16 term (current) DO (78653) sources.) drug therapy Malaise and Other malaise Episodic Active ALI MODE , Not Available fatigue (5 and fatigue FACC (50777) sources.) Heart valve Other Chronic Active ERIC GLORIA , Not Av ailable disorders (16 nonrheumatic DO (34451) sources.) aortic valve disorders Other lower Other Episodic Active VIKI BAIMA Not Porsha ilable respiratory respiratory (08985) disease (9 abnormalities sources.) Peripheral and Peripheral Chronic Active ALI MODE , Not Available visceral vascular FAC (01918) atherosclerosi disease, s (10 unspecified sources.) Screening and Personal Episodic Active ALI MODE , Not Av ailable history of history of MD BERUMEN (70343) mental health nicotine and substance dependence abuse codes Translations: (20 sources.) [ HISTORY OF TOBACCO USE] Other Personal Episodic Active JOSENICOLAS ALSTON Not Avail able gastrointestin history of (33094) al disorders other diseases (8 sources.) of the digestive system Other lower Personal Episodic Active ANIYAH Not Availab le respiratory history of MD CHELLE (28433) disease (14 pneumonia sources.) (recurrent) 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 Personal Episodic Active ANIYAH Not Available infection and history of MD CHELLE (03324) poliomyelitis poliomyelitis (6 sources.) Pneumonia Pneumonia, Episodic Active CHAPIS CALDERON , Not Porsha ilable (except that organism (47682) caused by unspecified tuberculosis Translations: or sexually [ CANDIDIASIS transmitted OF LUNG] disease) (4 sources.) Chronic ulcer Pressure Chronic Active CHAPIS CALDERON , Not A vailable of skin (2 ulcer, (99480) sources.) unspecified stage Translations: [ PRESSURE ULCER, HEEL] Contraceptive Tubal ligation Episodic Active ANIYAH Not Available and status MD CHELLE (07275) procreative management (14 sources.) Disorders of Unspecified Episodic Active YAN LARIOS , No t Available teeth and jaw disorder of DO (75000) (3 sources.) the teeth and supporting structures Other Weight Episodic Active ELLEN DISLA [facility]; [facility] endocrine; and Translations: [facility] [ Loss of [place] (78565) disorders (2 weight] sources.) Past or Other Problems Problem Normalized Date of Normalized Normalized Provider Fac ility Classification Problem(s) Problem Problem Problem Sta tus Onset/Resoluti Duration on Acute and Acute kidney Episodic Completed CHAPIS CALDERON , Not A vailable unspecified failure with MD (28188) renal failure lesion of (1 source.) tubular necrosis Adverse Adrenal no information no information CHAPIS CALDERON , Not Available effects of cortical MD (96162) medical drugs steroids (1 source.) causing adverse effects in therapeutic use Deficiency and Anemia, Episodic Completed CHAPIS CALDERON , Not Available other anemia unspecified MD (65740) (1 source.) Other Care involving Episodic Completed CHAPIS CALDERON , Not Available aftercare (1 other physical MD (20953) source.) therapy Other Encounter for Episodic Completed CHAPIS CALDERON , Not Available aftercare (1 occupational MD (43983) source.) therapy Other longterm no information no information ERIC GLORIA , Not Available aftercare (21 (current) use DO (75424) sources.) of oral hypoglycemic drugs Disorders of Pure no information no information ANIYAH Not Available lipid hypercholester MD CHELLE (80821) metabolism (14 olemia, sources.) unspecified Procedures Procedure Normalized Procedure Procedure Result Performer Facility Date 01-12-2014 Collection venous no information no name (no phone) [facility] blood venipuncture [facility] (07774) 01-12-2014 Comprehensive no information no name (no phone) [facility] metabolic panel [facility] ([id number]) 05-11-2018 Electrocardiographic no information ANIYAH SANTANA INS [place] [facility] ([id number]) 06-22-2018 [facility] visit, estab pt no information no name (no malgorzata ne) [facility] ([id number]) 01-29-2018 [facility] visit, estab pt no information no name (no malgorzata ne) [facility] ([id number]) 10-22-2017 [facility] visit, estab pt no information no name (no malgorzata ne) [facility] ([id number]) 07-17-2017 [facility] visit, estab pt no information no name (no malgorzata ne) [facility] ([id number]) 06-30-2018 [facility] visit, IPPE or no information no name (no phon e) [facility] (07210) 06-22-2018 Hemoglobin no information no name (no phone) Comm [facility] glycosylated a1c [facility] (61950) 01-29-2018 Hemoglobin no information no name (no phone) [facility] glycosylated a1c [facility] (51670) 10-22-2017 Hemoglobin no information no name (no phone) [facility] glycosylated a1c [facility] (89133) 07-17-2017 Hemoglobin no information no name (no phone) [facility] glycosylated a1c [facility] ([id number]) 01-12-2014 Lipid panel no information no name (no phone) Comm [facility] (83280) 05-11-2018 Plain chest X-ray no information ANIYAH CORBETT [place] [facility] (83140) Immunizations Normalized Immunization Date Notes Care Provider Facili ty Immunization influenza, 02-17-2018 - no information ELLEN DISLA [id number] [facility] injectable, 02-17-2018 [place] ([address]69) preservative free influenza, 03-24-2017 no information no name Not Availab le injectable, (00654) quadrivalent, preservative free influenza, seasonal, 03-17-2019 no information no name [facility] injectable [facility] (57876) influenza, seasonal, 02-17-2018 - no information ELLEN DISLA [id number] [facility] 02-17-2018 [facility] (19764) no information 02-17-2018 no information ELLEN DISLA [address] [facility] (75422) no information 02-17-2018 no information ELLEN DISLA [address] [facility] ([id number]) Results Test Name Value Interpretation Reference Range Date Time Fa cility (Normalized) (Normalized) (Medline Reference) mammogram, bilateral screening on null NEGATED: no information (no code) [facility] studies (set) (06167) a1c (in house) on null HbA1c 6.4 % (no code) 0 - 5.7 % [facility] (02900) HbA1c 6.2 % (no code) 0 - 5.7 % [facility] (07968) HbA1c (Bld) 959 % (no code) 0 - 5.7 % [facility] [Mass fraction] [facility] (60007) HbA1c (Bld) 03/2020 (no code) [facility] [Mass fraction] [facility] (77608) Hemoglobin 6.3 % (no code) 0 - 5.7 % [facility] A1c/Hemoglobin.t Center of [facility] fraction (Bld) (38806) A1C (IN HOUSE) 0815 (no code) [facility] (38565) A1C (IN HOUSE) 03/30 (no code) [facility] (17745) A1C (IN HOUSE) 0856 (no code) [facility] (71254) A1C (IN HOUSE) 07/2019 (no code) [facility] (41043) A1C (IN HOUSE) 0899 (no code) [facility] (82871) A1C (IN HOUSE) 10/29 (no code) [facility] (16696) No panel information on 2019-01-04 Exp date 09/29 (no code) [facility] (33844) Lot 5.9~6.4~0524 (no code) [facility] (55173) No panel information on 2018-08-25 Albumin 4.3 g/dL (N) 3.4 - 5.4 g/dL [facility] [Mass/Vol] [facility] (38266) Albumin/Globulin 1.9 (N) [facility] [Mass ratio] [facility] (25986) ALP [Catalytic 45 U/L (N) 44 - 147 U/L [facility] activity/Vol] [facility] (09372) ALT [Catalytic 10 U/L (N) 4 - 40 U/L [facility] activity/Vol] [facility] (06091) AST [Catalytic 12 U/L (N) 10 - 34 U/L [facility] activity/Vol] [facility] () Basophils (Bld) 0.072 10*3/uL (N) 0 - 0.3 10*3/uL [facility] [#/Vol] [facility] (26854) Basophils/100 1.6 % (N) 0.5 - 1 % [facility] WBC (Bld) [facility] () Bilirubin 0.5 mg/dL (N) 0.1 - 1.2 mg/dL [facility] [Mass/Vol] [facility] (75315) Calcium 9.4 mg/dL (N) 8.5 - 10.2 mg/dL [facility] [Mass/Vol] [facility] (92591) Chloride 101 mmol/L (N) 95 - 106 mmol/L [facility] [Moles/Vol] [facility] (74124) Cholesterol 141 mg/dL (N) 180 - 200 mg/dL [facility] [Mass/Vol] [facility] (35361) Cholesterol in 54 mg/dL (N) [facility] HDL [Mass/Vol] [facility] (28574) Cholesterol in 63 (N) [facility] LDL [Mass/Vol] [facility] (98192) Cholesterol non 87 (N) [facility] HDL [Mass/Vol] [facility] (07116) Cholesterol.tota 2.6 (N) [facility] l/Cholesterol in [facility] HDL [Mass ratio] [facility] (75587) CO2 [Moles/Vol] 27 mmol/L (N) 23 - 29 mmol/L [facility] (11901) Creatinine 0.58 mg/dL (N) [facility] [Mass/Vol] [facility] (17494) Eosinophils 0.099 10*3/uL (N) 0.05 - 0.5 [facility] (Bld) [#/Vol] 10*3/uL [facility] (40811) Eosinophils/100 2.2 % (N) 1 - 4 % [facility] WBC (Bld) [facility] (62861) Erythrocyte 15.4 % (H) 11.6 - 14.6 % [facility] distribution [facility] width (RBC) [facility] [Ratio] (99396) GFR/1.73 sq M 111 (N) 90 - 120 [facility] predicted among mL/min/{1.73_m2} mL/min/{1.73_m2} Center o [facility] blacks MDRD [facility] (S/P/Bld) [Vol (43365) rate/Area] GFR/1.73 sq 96 (N) 90 - 120 [facility] M.predicted MDRD mL/min/{1.73_m2} mL/min/{1.73_m2} [facility] (S/P/Bld) [Vol [facility] rate/Area] (14181) Globulin (S) 2.3 (N) [facility] h [Mass/Vol] [facility] (78940) Glucose 99 mg/dL (N) 60 - 125 mg/dL [facility] [Mass/Vol] [facility] (48267) Hematocrit (Bld) 35.2 % (N) 36.1 - 50.3 % [facility] [Volume [facility] fraction] [facility] (66767) Hemoglobin (Bld) 10.6 g/dL (L) 12.1 - 17.2 g/dL [facility] [Mass/Vol] [facility] (14552) Lymphocytes 1.427 10*3/uL (N) 0.9 - 2.9 [facility] (Bld) [#/Vol] 10*3/uL [facility] (80574) Lymphocytes/100 31.7 % (N) 20 - 40 % [facility] WBC (Bld) [facility] (70263) MCH (RBC) 24.0 pg (L) 27 - 31 pg [facility] th [Entitic mass] [facility] (49144) MCHC (RBC) 30.1 g/dL (L) 32 - 36 g/dL [facility] [Mass/Vol] [facility] (49497) MCV (RBC) 79.6 fL (L) 80 - 100 fL [facility] [Entitic vol] [facility] (12487) Monocytes (Bld) 0.432 10*3/uL (N) 0.3 - 0.9 [facility] [#/Vol] 10*3/uL [facility] (92643) Monocytes/100 9.6 % (N) 2 - 8 % [facility] WBC (Bld) [facility] (06800) Neutrophils 2.471 10*3/uL (N) 1.7 - 7 10*3/uL [facility] (Bld) [#/Vol] [facility] (89211) Neutrophils/100 54.9 % (N) 40 - 60 % [facility] WBC (Bld) [facility] (93383) Platelet mean 9.5 fL (N) 7.2 - 11.7 fL [facility] volume (Bld) [facility] [Entitic vol] [facility] (98383) Platelets (Bld) 504 10*3/uL (H) 150 - 450 [facility] [#/Vol] 10*3/uL [facility] (63915) Potassium 4.3 mmol/L (N) 3.7 - 5.2 mmol/L [facility] [Moles/Vol] [facility] (72394) Protein 6.6 g/dL (N) 6.4 - 8.3 g/dL [facility] [Mass/Vol] [facility] (40722) RBC (Bld) 4.42 10*6/uL (N) 4.2 - 6.1 [facility] lth [#/Vol] 10*6/uL [facility] (98086) Sodium 135 mmol/L (N) 135 - 145 mmol/L [facility] [Moles/Vol] [facility] (44689) Triglyceride 154 mg/dL (H) 0 - 150 mg/dL [facility] [Mass/Vol] [facility] (26492) Urea nitrogen 15 mg/dL (N) 7 - 20 mg/dL [facility] [Mass/Vol] [facility] (00300) Urea NOT APPLICABLE (no code) [facility] nitrogen/Creatin [facility] [Mass ratio] [facility] (07207) WBC (Bld) 4.5 10*3/uL (N) 3.5 - 10.5 [facility] th [#/Vol] 10*3/uL [facility] (58782) venous blood hemoglobin measurement (mass/volume) on 2018-05-11 Hemoglobin mass 12.0 g/dL (no code) 12.1 - 17.2 g/dL [place] [facility] (Bld) [facility] (80296) serum or plasma urea nitrogen/creatin ine mass ratio on 2018-05-11 Urea 15 mg/mg (no code) 6 - 22 mg/mg [place] [facility] nitrogen/Creatin [facility] ine mass ratio (83429) serum or plasma urea nitrogen measurement (mass/volume) on 2018-05-11 Urea nitrogen 12 mg/dL (no code) 7 - 20 mg/dL [place] Via [facility] ([id number]) serum or plasma troponin i.cardiac measurement (mass/volume) on 2018-05-11 Troponin no information (no code) [place] Via I.cardiac [facility] conc ([id number]) serum or plasma total bilirubin measurement (mass/volume) on 2018-05-11 Bilirubin mass 0.8 mg/dL (no code) 0.1 - 1.2 mg/dL [facility] ([id number]) serum or plasma sodium measurement (moles/volume) on 2018-05-11 Sodium molar 136 mmol/L (no code) 135 - 145 mmol/L [facility] ([id number]) serum or plasma protein measurement (mass/volume) on 2018-05-11 Protein mass 8.8 g/dL (H) 6.4 - 8.3 g/dL [place] [facility] ([id number]) serum or plasma potassium measurement (moles/volume) on 2018-05-11 Potassium molar 3.3 mmol/L (L) 3.7 - 5.2 mmol/L [facility] ([id number]) serum or plasma glucose measurement (mass/volume) on 2018-05-11 Glucose mass 132 mg/dL (H) 60 - 125 mg/dL [place] [facility] ([id number]) serum or plasma creatinine measurement with calculation of estimated glomerular filtration rate on 2018-05-11 GFR/1.73 sq M no information (no code) [place] Via [facility] non-blacks MDRD ([id number]) vol rate/area (S/P/Bld) serum or plasma creatinine measurement (mass/volume) on 2018-05-11 Creatinine mass 0.81 mg/dL (no code) [place] [facility] ([id number]) serum or plasma chloride measurement (moles/volume) on 2018-05-11 Chloride molar 100 mmol/L (no code) 95 - 106 mmol/L [facility] ([id number]) serum or plasma calcium measurement (mass/volume) on 2018-05-11 Calcium mass 9.8 mg/dL (no code) 8.5 - 10.2 mg/dL [facility] ([id number]) serum or plasma aspartate aminotransferase measurement (enzymatic activity/volume) on 2018-05-11 AST enzyme 37 U/L (H) 10 - 34 U/L [place] [facility] ([id number]) serum or plasma anion gap determination (moles/volume) on 2018-05-11 Anion gap 3 17 mmol/L (H) 3 - 11 mmol/L [place] [facility] ia molar [facility] ([id number]) serum or plasma alkaline phosphatase measurement (enzymatic activity/volume) on 2018-05-11 ALP enzyme 76 U/L (no code) 44 - 147 U/L [place] [facility] (31590) serum or plasma albumin measurement (mass/volume) on 2018-05-11 Albumin mass 4.9 g/dL (H) 3.4 - 5.4 g/dL [place] [facility] ([id number]) serum or plasma alanine aminotransferase measurement (enzymatic activity/volume) on 2018-05-11 ALT enzyme 42 U/L (no code) 4 - 40 U/L [place] [facility] ([id number]) prothrombin time (pt) in platelet poor plasma by coagulation assay on 2018-05-11 Prothrombin time 14.9 s (H) 9.4 - 12.5 s [facility] (PT) Coag time [facility] (PPP) ([id number]) inr in platelet poor plasma or blood by coagulation assay on 2018-05-11 INR Coag RelTime 1.2 (no code) [place] Via (Platelet poor [facility] plasma or blood) ([id number]) carbon dioxide on 2018-05-11 CO2 molar conc 19 mmol/L (L) 23 - 29 mmol/L [facility] (56965) bnp level on 2018-05-11 Natriuretic 104.2 pg/mL (H) 0 - 100 pg/mL [place] [facility] ia peptide B mass [facility] conc (Bld) (58330) blood neutrophils automated count (number/volume) on 2018-05-11 Neutrophils Auto 7.0 10*3/uL (no code) 1.7 - 7 10*3/uL [facility] #/vol (Bld) [facility] (56494) blood monocytes/100 leukocytes on 2018-05-11 Monocytes/100 10 % (no code) 2 - 8 % [place] [facility] a WBC Auto (Bld) [facility] (08644) blood monocytes automated count (number/volume) on 2018-05-11 Monocytes Auto 0.9 10*3/uL (no code) 0.3 - 0.9 [place] ia #/vol (Bld) 10*3/uL [facility] (91171) blood lymphocytes automated count (number/volume) on 2018-05-11 Lymphocytes Auto 1.0 10*3/uL (no code) 0.9 - 2.9 [place] [facility] #/vol (Bld) 10*3/uL [facility] (91170) blood leukocytes automated count (number/volume) on 2018-05-11 WBC Auto #/vol 8.9 10*3/uL (no code) 3.5 - 10.5 [place] [facility] ia (Bld) 10*3/uL [facility] (92808) blood lactic acid measurement (moles/volume) on 2018-05-11 Lactate molar 1.18 mmol/L (no code) 0.5 - 2.2 mmol/L [facility] conc [facility] (94014) blood hematocrit (volume fraction) on 2018-05-11 Hematocrit Auto 38 % (no code) 36.1 - 50.3 % [facility] Volume Fraction [facility] (Bld) (11554) blood erythrocytes automated count (number/volume) on 2018-05-11 RBC Auto #/vol 4.71 10*6/uL (no code) 4.2 - 6.1 [place] Via (Bld) 10*6/uL [facility] (87588) automated erythrocyte mean corpuscular volume on 2018-05-11 MCV Auto Entitic 80 fL (no code) 80 - 100 fL [facility] volume (RBC) [facility] (90886) automated erythrocyte mean corpuscular hemoglobin concentration measurement (mass/volume) on 2018-05-11 MCHC Auto mass 32 g/dL (no code) 32 - 36 g/dL [place] Via conc (RBC) [facility] (07069) automated erythrocyte mean corpuscular hemoglobin (mass per erythrocyte) on 2018-05-11 MCH Auto Entitic 26 pg (no code) 27 - 31 pg [place] Via mass (RBC) [facility] (79576) automated erythrocyte distribution width ratio on 2018-05-11 Erythrocyte 16.6 % (H) 11.6 - 14.6 % [place] ia distribution [facility] width Auto Ratio (00746) (RBC) automated eosinophil count on 2018-05-11 Eosinophils Auto 0.0 10*3/uL (no code) 0.05 - 0.5 [place] [facility] #/vol (Bld) 10*3/uL [facility] (68462) automated blood platelet mean volume measurement on 2018-05-11 Platelet mean 9.6 fL (no code) 7.2 - 11.7 fL [place] [facility] volume Auto [facility] Entitic volume (05444) (Bld) automated blood platelet count (count/volume) on 2018-05-11 Platelets Auto 357 10*3/uL (no code) 150 - 450 [place] ia #/vol (Bld) 10*3/uL [facility] (14169) automated blood neutrophils/100 leukocytes on 2018-05-11 Neutrophils/100 79 % (H) 40 - 60 % [place] [facility] WBC Auto (Bld) [facility] (09552) automated blood lymphocytes/100 leukocytes on 2018-05-11 Lymphocytes/100 11 % (L) 20 - 40 % [place] [facility] WBC Auto (d) [facility] (60789) automated blood eosinophils/100 leukocytes on 2018-05-11 Eosinophils/100 0 % (no code) 1 - 4 % [place] [facility] WBC Auto (Bld) [facility] (26826) automated blood basophils/100 leukocytes on 2018-05-11 Basophils/100 0 % (no code) 0.5 - 1 % [place] [facility] a WBC Auto ([facility]) [facility] (51816) automated blood basophil count (count/volume) on 2018-05-11 Basophils Auto 0.0 10*3/uL (no code) 0 - 0.3 10*3/uL [facility] #/vol ([facility]) [facility] (71252) activated partial thromboplastin time (aptt) in platelet poor plasma bycoagulation assay on 2018-05-11 aPTT Coag time 44 s (H) 25 - 35 s [place] ia (d) [facility] (30041) No panel information on 2017-10-22 Exp date 07/2019 (no code) [facility] (23339) Lot 6.2~6.4~0856 (no code) [facility] (93516) No panel information on 2017-07-17 Exp date 03/30 (no code) [facility] (16716) Lot 6.4~6.2~0815 (no code) [facility] (12346) Vital Signs Vital Sign Value Interpretation Reference Date Time Care Prov ider Facility (Normalized) (Normalized) Range BMI (Body Mass 21.14 kg/m2 (no code) 15 - 25 kg/m2 06-30-2018 [facility] Community Index) 08:20-0500 88380 [facility] ([id number]) BMI (Body Mass 21.27 kg/m2 (no code) 15 - 25 kg/m2 06-22-2018 [facility] Community Index) 10:20-0500 15649 [facility] ([id number]) BMI (Body Mass 21.3 kg/m2 (no code) 15 - 25 kg/m2 01-29-2018 [facility] Community Index) 11:20-0400 15198 [facility] (77120) BMI (Body Mass 20.79 kg/m2 (no code) 15 - 25 kg/m2 10-22-2017 [facility] Index) 10:00-0400 31310 [facility] (15281) BMI (Body Mass 20.59 kg/m2 (no code) 15 - 25 kg/m2 07-17-2017 [facility] Community Index) 10:40-0500 74924 [facility] (80537) Body 97.5 [degF] (no code) 97.8 - 99.0 06-30-2018 E[facility] RBES Community Temperature [degF] 08:20-0500 40618 [facility] (81267) Body 98.1 [degF] (no code) 97.8 - 99.0 06-22-2018 ELLEN RBES Community Temperature [degF] 10:20-0500 01898 [facility] (00055) Body 98.7 [degF] (no code) 97.8 - 99.0 01-29-2018 ELLEN RBES Community Temperature [degF] 11:20-0400 34987 [facility] Cente r [facility] (69027) Body 98 [degF] (no code) 97.8 - 99.0 10-22-2017 ELLEN MITCHELL Community Temperature [degF] 10:00-0400 65884 [facility] (40832) Body 97.4 [degF] (no code) 97.8 - 99.0 07-17-2017 ELLEN RBES Community Temperature [degF] 10:40-0500 09162 [facility] (39127) Body 98.4 [degF] (no code) 97.8 - 99.0 06-22-2014 ELLEN RBES Community Temperature [degF] 08:38-0500 18093 [facility] ([id number]) Body 98.2 [degF] (no code) 97.8 - 99.0 01-12-2014 [facility] DEBOR[facility] Temperature [degF] 11:120400 94084 [facility] (12585) Body weight 59.42 kg (no code) kg 06-30-2018 ELLEN NICK [facility] 08:20-0500 60789 [facility] (07944) Body weight 59.78 kg (no code) kg 06-22-2018 [employer] N[facility] 10:20-0500 68744 [facility] (41580) Body weight 75.81 kg (no code) kg 06-22-2014 [employer] [facility] [facility] 08:38-0500 36526 [facility] (96161) Body weight 71.12 kg (no code) kg 01-12-2014 [employer] [facility] [facility] 11:120400 04768 [facility] (37062) Height 167.64 cm (no code) cm 06-30-2018 [employer] NIGHAT [facility] 08:200500 23404 [facility] (27256) Height 167.64 cm (no code) cm 06-22-2018 [facility] 10:20-0500 28379 [facility] (45752) Height 167.64 cm (no code) cm 01-29-2018 [facility] 11:20-0400 29964 [facility] (70887) Height 167.64 cm (no code) cm 10-22-2017 [facility] 10:00-0400 10372 [facility] (12602) Height 167.64 cm (no code) cm 07-17-2017 [facility] 10:40-0500 05222 [facility] (55988) Height 167.64 cm (no code) cm 06-22-2014 [facility] 08:38-0500 03044 [facility] (12497) Height 167.64 cm (no code) cm 01-12-2014 [facility] 11:120400 08594 [facility] (11493) Weight 59.88 kg (no code) kg 01-29-2018 [facility] 11:20-0400 33790 [facility] ([id number]) Weight 58.42 kg (no code) kg 10-22-2017 [facility] 10:00-[id number] [place] [address] (43866) Weight 57.88 kg (no code) kg 07-17-2017 [facility] 10:40-[id number] [place] [address] ([id number]) Interventions No Information Plan of Treatment The data below is from unstructured sources Discharge Date 01/31/15 3:00pm Instructions/Education Provided Frederic noscopic Polypectomy (DC) Prescriptions See Medication Section Discharge Date 11/11/16 11:30am Prescriptions See Medication Section Activity Details Follow Up 3 Months Reason:dm Discharge Date 01/16/17 2:55pm Instructions/Education Provided ANES THESIA INSTRUCTIONS POSTOP Surgical Wound (DC) Abdominal Hernia Repair, Laparoscopic Surgery Prescriptions See Medication Section Activity Details Follow Up prn Reason:worsening Discharge Date 06/29/17 7:17pm Disposition 01 HOME, SELF-CARE Condition at Discharge Improved Instructions/Education Provided Urin jamal Tract Infection, Adult (DC) Diabetes Type 2 (DC) Prescriptions See Medication Section Referrals TOSHIA POPE DO Order Date: Primary Care Physician Address: [address] [place] [address] ELLEN DISLA Order Date: Primary Care Physician Address: [address] [address] Additional Instructions/Education Al l discharge instructions reviewed with patient and/or family. Voiced understanding. Take medications as directed. Follow-up with your doctor tomorrow. Keep splint with Dr. Orantes tomorrow. Return for worse pain, fever, vomiting, weakness, breathing problems or other concerns as needed. Activity Details Follow Up 3 Months Reason: Discharge Date 05/11/18 3:40pm Disposition 01 HOME, SELF-CARE Condition at Discharge Stable Instructions/Education Provided Acut e Bronchitis, Adult (DC) Prescriptions See Medication Section Referrals TOSHIA POPE DO Order Date: Primary Care Physician Address: [address] [place] [id number] ELLEN DISLA Order Date: Primary Care Physician Address: [address] [address] [place] [address] Additional Instructions/Education Al l discharge instructions reviewed with patient and/or family. Voiced understanding. Take medications as directed. Continue albuterol treatments at home every 4 hours as needed for cough and wheezing. Follow-up with your DrJennyfer in a few days for recheck. Return for worse pain, fever, vomiting, weakness, breathing problems or other concerns as needed. Continue other home meds as previously prescribed. Activity Details Follow Up 1 Year Reason:AWV Goals No Information Social History The data below is from unstructured sources History Response Recorde d Date/Time Alcohol Use Denies Use 0 07/28/12 4:50pm Recreational Drug Use N 07/28/12 4:50pm Recent Foreign Travel N 07/28/12 4:50pm Recent Infectious Disease Exposure N 07/28/12 4:50pm Hospitalization with Isolation Denies 08/14/12 11:14pm Sexually Transmitted Disease N 07/28/12 4:50pm HIV/AIDS N 07/28/12 4:50 pm Functional Status The data below is from unstructured sourcesNo functional status results.No functional status information available.No functional status information available.No functional status information available.No functional status information available.No functional status information available.No functional status information available.No functional status information available.No functional status information available. Mental Status No Information Encounters Encounter Normalized Encounter Encounter Diagnosis Care Provi trish Organization Date Type 05-11-2018 Emergency department no information ANIYAH SANTAAN INS no organization name - patient visit Work Phone: (no phone) 05-11-2018 10-22-2017 Patient encounter no information no name (no phone) no organization name (no phone) 07-17-2017 Patient encounter no information no name (no phone) no organization name (no phone) 06-30-2017 Patient encounter no information no name (no phone) no organization name (no phone) 06-29-2017 Patient encounter no information no name (no phone) no organization name (no phone) 06-16-2017 Patient encounter no information no name (no phone) no organization name (no phone) 06-04-2017 Patient encounter no information no name (no phone) no organization name (no phone) 06-03-2017 Patient encounter no information no name (no phone) no organization name (no phone) 05-27-2017 Patient encounter no information no name (no phone) no organization name (no phone) 05-20-2017 Patient encounter no information no name (no phone) no organization name (no phone) 01-16-2017 Patient encounter no information no name (no phone) no organization name - (no phone) 01-16-2017 Patient encounter no information no name (no phone) no organ ization name (no phone) 03-31-2019 Patient encounter no information no name (no phone) no organization name procedure (no phone) 03-17-2019 Patient encounter no information no name (no phone) no organization name procedure (no phone) 01-04-2019 Patient encounter no information no name (no phone) no organization name procedure (no phone) 01-04-2019 Patient encounter no information no name (no phone) no organization name procedure (no phone) 09-03-2018 Patient encounter no information no name (no phone) no organization name procedure (no phone) 08-25-2018 Patient encounter no information no name (no phone) no organization name procedure (no phone) 06-23-2018 Patient encounter no information no name (no phone) no organization name procedure (no phone) 06-22-2018 Patient encounter no information no name (no phone) no organization name procedure (no phone) 05-26-2018 Patient encounter no information no name (no phone) no organization name procedure (no phone) 05-21-2018 Patient encounter no information no name (no phone) no organization name procedure (no phone) 05-11-2018 Patient encounter no information no name (no phone) no organization name procedure (no phone) 11-14-2016 Patient encounter no information no name (no phone) no organization name procedure (no phone) 11-14-2016 Patient encounter no information no name (no phone) no organization name - procedure (no phone) 11-14-2016 01-19-2016 Patient encounter no information no name (no phone) no organization name procedure (no phone) 07-07-2015 Patient encounter no information no name (no phone) no organization name procedure (no phone) 07-04-2015 Patient encounter no information no name (no phone) no organization name procedure (no phone) 02-23-2015 Patient encounter no information no name (no phone) no organization name procedure (no phone) 01-31-2015 Patient encounter no information no name (no phone) no organization name - procedure (no phone) 01-31-2015 06-06-2014 Patient encounter no information no name (no phone) no organization name procedure (no phone) 03-29-2013 Patient encounter no information no name (no phone) no organization name procedure (no phone) 03-09-2013 Patient encounter no information no name (no phone) no organization name - procedure (no phone) 03-09-2013 10-12-2012 Patient encounter no information no name (no phone) no organization name procedure (no phone) 06-30-2018 PPPS, subseq visit no information no name (no phone ) no organization name (no phone) no information Encounter for general no name (no phone) no o rganization name adult medical (no phone) examination without abnormal findings no information Pre-operative no name (no phone) no organiza tion name examination, (no phone) unspecified no information Encounter for no name (no phone) no organiza tion name preprocedural (no phone) laboratory examination no information Encounter for other no name (no phone) no org anization name preprocedural (no phone) examination Medical Equipment Equipment Code (if Equipment Original Equipment Identifier P rocedure Code (if Dates provided) Text (if provided) (if provided) provided) no information as directed no information (no no information 0 10-10-2014 named assigning authority) no information as directed no information (no no information 0 10-10-2014 named assigning authority) no information as directed no information (no no information 0 10-10-2014 named assigning authority) Payers Normalized Payer Value Medicare [id number] ([id number]) History general Narrative - Reported Note Type Note Facility History general Narrative - Reported Type Medical chronic obstructive pulmona ry disease (COPD) History Medical asthma History Medical acid reflux History Medical type II diabetes History Medical hypercholesterolemia History Medical GERD (gastroesophageal refl ux disease) History Medical Essential hypertension, petra ign History Surgical tubal ligation 1992 History Surgical surgery on legs and feet due to Polio childhood History Surgical Abcess removed from right chest cavity 07/2012 History Surgical Hernia repair 01/2017 History Hospitaliz Asthma excerbation/bronchitis--in [facility] [place] about 45 days 2004 ation History [facility] ([id number]) Summary Purpose eClinicalWorks SubmissioneClinicalWorks SubmissioneClinicalWorks SubmissioneClinicalWorks SubmissioneClinicalWorks SubmissioneClinicalWorks SubmissioneClinicalWorks SubmissioneClinicalWorks SubmissioneClinicalWorks SubmissioneClinicalWorks SubmissioneClinicalWorks SubmissioneClinicalWorks SubmissioneClinicalWorks SubmissioneClinicalWorks SubmissioneClinicalWorks SubmissioneClinicalWorks Submission Advance Directives Directive Response Recor ded Date Advance Directives N 7:02am Health Care Power of Supply Aide N 03/09/13 7:02am Organ Donor N 03/09/13 7 :02am Directive Response Recor ded Date/Time Advance Directives No 12:26pm Health Care Power of Supply Aide No 01/31/15 12:26pm Organ Donor No 01/31/15 12:26pm Resuscitation Status Full Code 01/31/15 12:26pm Directive Response Recor ded Date/Time Advance Directives No 11:22am Health Care Power of Supply Aide No 11/11/16 11:22am Organ Donor No 11/11/16 11:22am Resuscitation Status Full Code 11/11/16 11:22am Directive Response Recor ded Date/Time Advance Directives No 9:00am Health Care Power of Supply Aide No 01/16/17 9:00am Organ Donor No 01/16/17 9:00am Resuscitation Status Full Code 01/16/17 9:00am Directive Response Recor ded Date/Time Advance Directives No 5:16pm Health Care Power of Supply Aide No 01/16/17 9:00am Organ Donor No 01/16/17 9:00am Resuscitation Status Full Code 06/29/17 5:16pm Directive Response Recor ded Date/Time Advance Directives No 11:31am Health Care Power of Supply Aide No 05/11/18 11:31am Organ Donor No 05/11/18 11:31am Resuscitation Status Full Code 05/11/18 11:31am Discharge Instructions Patient Instructions Physician Instructions Plan of Care/Instructions/FU: 2 weeks Gloria Hold aspirin 5 days Activity as Tolerated: Yes Discharge Diet: Regular Diet Care Plan Patient Instructions:: 2 weeks DunbarHold aspirin 5 days No hospital discharge instruction information available.No hospital discharge instruction information available.No hospital discharge instruction information available.No hospital discharge instruction information available. Chief Complaint and Reason for Visit Chief Complaint Respiratory Problems Reason for Visit Upper respiratory i nfection Bronchitis Additional Source Comments This clinical document has been generated using [email or web address] software that has been certified by the Office of the National Coordinator for Health Information Technology (ONC 15.99.04.3023.Diam.31.00.0.738589) and the National Committee for Workers Compensation Analyst (NCQA, as an eMeasure certified technology). FOR RECORDS PERTAINING TO PATIENTS WHO ARE OR HAVE BEEN ENROLLED IN A CHEMICAL D EPENDENCY/SUBSTANCE ABUSE PROGRAM, SOME INFORMATION MAY BE OMITTED. This clinica l summary was aggregated from multiple sources. Caution should be exercised in using it in the provision of clinical care. This summary normalizes information from multiple sources, and as a consequence, information in this document may ma terially change the coding, format and clinical context of patient data. In aida tion, data may be omitted in some cases. CLINICAL DECISIONS SHOULD BE BASED ON T HE PRIMARY CLINICAL RECORDS. [employer] provides no warranty or guara ntee of the accuracy or completeness of information in this document.The followi ng information is based on time limited clinical information UNRECOGNIZED CONTENT PROVIDED BELOW FOR UNRECOGNIZED SECTION MEDICAL (GENERAL) HISTORY Type Description Date Medical History chronic obstructive pulmonary disease (COPD) Medical History asthma Medical History acid reflux Medical History type II diabetes Medical History hypercholesterolemia Surgical History tubal ligation 1992 Surgical History surgery on legs and feet due to Polio childhood Surgical History Abcess removed from right chest cavity 07/2012 Hospitalization History Asthma excer bation/bronchitis--in hospital about 45 days 2004 Type Description Date Medical History chronic obstructive pulmonary disease (COPD) Medical History asthma Medical History acid reflux Medical History type II diabetes Medical History hypercholesterolemia Surgical History tubal ligation 1992 Surgical History surgery on legs and feet due to Polio childhood Surgical History Abcess removed from right chest cavity 07/2012 Surgical History Hernia repair 01/2017 Hospitalization History Asthma excer bation/bronchitis--in hospital about 45 days 2004 Type Description Date Medical History chronic obstructive pulmonary disease (COPD) Medical History asthma Medical History acid reflux Medical History type II diabetes Medical History hypercholesterolemia Medical History GERD (gastroesophage al reflux disease) Medical History Essential hypertensi on, benign Surgical History tubal ligation 1992 Surgical History surgery on legs and feet due to Polio childhood Surgical History Abcess removed from right chest cavity 07/2012 Surgical History Hernia repair 01/2017 Hospitalization History Asthma excer bation/bronchitis--in hospital about 45 days 2004 UNRECOGNIZED CONTENT PROVIDED BELOW FOR UNRECOGNIZED SECTION REASON FOR VISIT Medication refill requestDiabetes visit Edouard SHAH3 month follow up on diabetes . cameron CorderonFlu shot Edouard MAFlu shot Edouard HOSKINSCFWTW-JbtCVC-BjeKJF-MigEMR-M kbTEU-KwfRZQ-XupONV-MigEMR-MigMedicare JUSTIN Dinh RNDiabetic follow up, have not seen since verónica Cordero
--- OUTSIDE RECORDS SUMMARY | 2019-07-19 23:13 | XMS REPORT ---
Author Author Zoie DISLA Organization [address] Address [address] [place] [address] Care Team Providers Care [place] Name Role Phone ELLEN DISLA Unavailable PROBLEMS Type Condition ICD9-CM Code HDX91-IE Code Onset Dates Condition S tatus SNOMED Code Problem Other and unspecified hyperlipidemia E78.5 Active 31620109 Problem Type 2 diabetes mellitus wit h other specified complication, without long-term current use of insulin E11.69 Active 49094529 Problem Chronic airway obstruction, 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 Active 18782709 Problem CAD (coronary artery disease) I25.10 Active 55842985 ALLERGIES No Information ENCOUNTERS Encounter Location Date Diagnosis [address] [address] 2 3 Jul, 2019 Encounter for Medicare annual wellness exam Z00.00 ; Chronic airway obstruction, 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 ; Other and unspecified hyperlipidemia E78.5 and Type 2 diabetes mellitus with other specified complication, without long-term current use of insulin E11.[address] [address] 0 4 Jul, 2019 Type 2 diabetes mellitus with other specified complication, without long-term current use of insulin E11.[address] [address] 1 4 Jun, [address] [place] [address] [id number] 02 Apr, 2019 Type 2 diabetes mellitus with other specified complication, without long-term current use of insulin E11.69 ; Chronic airway obstruction, 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 and Acute nasopharyngitis [address] [id number] [id number] Mar, Acute nasopharyngitis [address] [place] [id number] [place] [address] [id number] Mar, [address] [id number] Mar, Acute nasopharyngitis J00 [address] [id number] 06 Mar, 2019 Encounter for immunization Z23 [facility] [address] [facility] [place] [address] Feb, Type 2 diabetes mellitus with other spec ified complication, without long-term current use of insulin E11.[address] [id number] Dec, Type 2 diabetes mellitus with other specified complication, without long-term current use of insulin E11.69 ; Chronic airway obstruction, 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 ; CAD (coronary artery disease) I25.10 and Deformity of toe of left foot M20.[address] [id number] Aug, Bilateral impacted cerumen H61.[address] [id number] Aug, Bilateral impacted cerumen H61.23 ; CAD (coronary artery disease) I25.10 and Other and unspecified hyperlipidemia E78.[address] [id number] 19 Jun, 2018 Encounter for Medicare annual wellness exam Z00.00 ; Type 2 diabetes mellitus with other specified complication, without long-term current use of insulin E11.69 ; Chronic airway obstruction, 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 ; CAD (coronary artery disease) I25.10 ; Other and unspecified hyperlipidemia E78.5 and Breast cancer screening Z12.[address] [id number] 11 Jun, 2018 DM w/o complication type II E11.9 ; Chronic airway obstruction, 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 ; CAD (coronary artery disease) I25.10 and Vertigo R42 [address] [id number] Feb, Encounter for immunization Z23 [address] [id number] Jan, DM w/o complication type II E11.9 and Chronic airway obstruction, 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 [id number] Dec, CAD (coronary artery disease) I25.[address] [id number] Oct, DM w/o complication type II E11.9 ; Chronic airway obstruction, 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 and CAD (coronary artery disease) I25.[address] [id number] Jul, DM w/o complication type II E11.9 ; Chronic airway obstruction, 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 and Infective urethritis N34.[address] [id number] Jun, Syncope and collapse R55 [address] [id number] Jun, [address] [id number] May, Bronchitis J40 [address] [id number] May, [address] [id number] May, [address] [id number] Apr, DM w/o complication type II E11.[address] [id number] Mar, DM w/o complication type II E11.9 ; Chronic airway obstruction, 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 ; Dysuria R30.0 ; Tinea pedis of right foot B35.3 and Encounter for immunization Z23 [address] [id number] 04 Feb, 2017 Medicare welcome exam Z00.[address] [id number] 07 Jan, 2017 Chronic airway obstruction, 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 [id number] Dec, [address] [id number] Dec, DM w/o complication type II E11.9 ; Chronic airway obstruction, 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 and Acute cystitis with hematuria N30.[address] [id number] Oct, Encounter for screening for malignant neoplasm of colon Z12.[address] [id number] Oct, Medicare welcome exam Z00.[address] [id number] September, Medicare welcome exam Z00.00 and Encounter for immunization Z23 [address] [id number] September, Bronchitis J40 [address] [id number] September, Bronchitis J40 [address] [id number] September, Other and unspecified hyperlipidemia E78.[address] [id number] Aug, DM w/o complication type II E11.9 ; Chronic airway obstruction, 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 and Other and unspecified hyperlipidemia E78.[address] [id number] May, DM w/o complication type II E11.9 and Chronic airway obstruction, 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 [id number] Apr, Acute cystitis with hematuria N30.[address] [id number] Feb, DM w/o complication type II E11.[address] [id number] Feb, Chronic airway obstruction, 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 ; DM w/o complication type II E11.9 and Encounter for immunization Z23 [facility] [address] [id number] Dec, [facility] [address] [id number] Nov, Chronic airway obstruction, 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 [id number] Oct, DM w/o complication type II E11.9 [facility] [address] [facility] [place] [address] Oct, [address] [id number] Aug, Chronic airway obstruction, 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 and DM w/o complication type II E11.[address] [id number] Aug, Chronic airway obstruction, 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 [facility] [address] [id number] Aug, DM w/o complication type II E11.9 and Chronic airway obstruction, 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 [id number] Jul, [address] [id number] Jul, DM w/o complication type II E11.[address] [id number] Jun, [facility] [address] [id number] Jun, [address] [id number] Jun, Chronic airway obstruction, 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 ; DM w/o complication type II E11.9 and Other and unspecified hyperlipidemia E78.5 [facility] [address] [id number] Jun, CAD (coronary artery disease) I25.10 and Dizziness R42 [facility] [address] [id number] 10 Jun, 2015 Bronchitis J40 [facility] [address] [id number] May, Hematoma T14.8 [facility] [address] [id number] May, [facility] [address] [id number] May, Bronchitis J40 [facility] [address] [id number] Apr, Bronchitis J40 [facility] [address] [facility] [place] [address] Apr, [address] [id number] Mar, [facility] [id number] [place] [id number] Mar, [address] [id number] Mar, [facility] [address] [id number] [place] [id number] Mar, [address] [id number] Mar, SOB (shortness of breath) R06.[address] [id number] Feb, Urinary tract infection, site not specified N39.0 and Hematuria, unspecified R31.[address] [id number] Feb, DM w/o complication type II E11.9 ; Encounter for immunization Z23 and Chronic airway obstruction, 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 [id number] [address] Jan, [address] [id number] [address] Jan, [address] [id number] Dec, [facility] [address] [id number] Dec, [facility] [address] [id number] Dec, [facility] [address] [id number] Dec, [address] [id number] Dec, Blood in the stool 578.[address] [id number] Nov, [address] [id number] Nov, Colon cancer screening V76.[address] [id number] Nov, Vertigo 780.[address] [id number] Nov, Routine gynecological examination V72.31 ; Pap test, as part of routine gynecological examination V76.2 ; Breast cancer screening V76.10 ; Postmenopausal V49.81 and Colon cancer screening V76.[address] [id number] Nov, [address] [id number] Nov, [facility] [address] [address] Nov, [address] [id number] Oct, Diabetes 250.00 ; COPD (chronic obstructive pulmonary disease) 496 and GERD (gastroesophageal reflux disease) 530.81 [facility] [address] [address] Oct, [address] [id number] Oct, [address] [id number] Oct, [facility] [address] [facility] [address] Oct, Reflux 530.81 [facility] [address] [address] Oct, [facility] [address] [place] [address] [id number] Oct, [facility] [address] [id number] Oct, [facility] [address] [id number] Oct, Dysuria 788.1 [facility] [address] [id number] Oct, Dysuria 788.1 [facility] [address] [address] September, [facility] [address] [id number] September, Diabetes 250.00 and COPD (chronic obstructive pulmonary disease) [id number] [place] [address] [id number] September, [facility] [id number] [place] [address] [id number] September, [facility] [address] [place] [id number] September, [facility] [address] [address] Aug, Osteoarthritis 715.90 ; Diabetes 250.00 and COPD (chronic obstructive pulmonary disease) 496 [facility] [address] [place] [address] [id number] Aug, Pure hypercholesterolemia 272.0 ; Essential hypertension, benign 401.1 and Loss of weight 783.21 [facility] [id number] [place] [address] Aug, [facility] [address] [address] Aug, [facility] [address] [id number] Jul, [facility] [address] [facility] [place] [address] Jul, [facility] [address] [facility] [place] [address] Jun, [facility] [address] [facility] [place] [address] Jun, [facility] [address] [id number] [id number] Jun, [facility] [id number] [place] [address] May, [facility] [id number] [place] [address], [place] [id number] May, [facility] [address] [id number] [address] Apr, [facility] [id number] [place] [address] Apr, [facility] [address] [place] [address] Apr, [facility] [id number] [place] [address] Apr, [facility] [address] [place] [id number] Apr, [facility] [address] [facility] [place] [address] Apr, [facility] [id number] [place] [address] [id number] Feb, [facility] [id number] [place] [address] Feb, [facility] [id number] [place] [address] [id number] Feb, [facility] [id number] [place] [address] Feb, [facility] [id number] [place] [address] Jan, [facility] [address] [facility] [id number] Jan, [facility] [id number] [place] [address] Jan, [facility] [address] [facility] [id number] Jan, [facility] [address] [facility] [place] [address] Jan, [facility] [id number] [place] [address] Dec, [facility] [id number] [place] [address] Dec, [facility] [address] [id number] [address] September, [facility] [id number] [place] [address] September, [facility] [id number] [place] [address] September, [facility] [id number] [address] September, [facility] [id number] [address] September, [facility] [id number] [place] [address] September, [facility] [address] [id number] [address] Aug, [facility] [address] [facility] [place] [address] Aug, [facility] [id number] [place] [address] Jul, [facility] [id number] [id number] Jul, [facility] [id number] [place] [address] Jul, [facility] [id number] [place] [address] [id number] Jun, [facility] [address] [facility] [place] [address] Jun, [facility] [address] [facility] [place] [address] Jun, [facility] [address] [facility] [id number] Jun, [facility] [id number] [address] May, [facility] [address] [facility] [place] [address] May, [facility] [id number] [place] [address] Apr, [facility] [id number] [id number] Mar, [facility] [id number] [place] [address] Mar, [facility] [id number] [place] [address] Mar, [facility] [id number] [place] [address] Mar, [facility] [address] [id number] [id number] Mar, [facility] [address] [place] [id number] Feb, [facility] [id number] [place] [address] Feb, [facility] [address] [place] [address] Feb, [facility] [id number] [place] [address] Feb, [facility] [address] [id number] [address] Feb, [facility] [id number] [place] [address] Feb, [facility] [address] [id number] [address] Jan, [facility] [address] [id number] [address] Dec, [facility] [address] [id number] [address] Nov, [facility] [address] [id number] [address] Oct, [facility] [id number] [place] [address], [place] [address] Oct, [facility] [address] [id number] [address] Oct, [facility] [id number] [place] [address], [place] [id number] Oct, [facility] [id number] [place] [address] September, [facility] [id number] [place] [address], [place] [id number] September, [facility] [id number] [place] [address] Aug, [facility] [address] [id number] [id number] Aug, [facility] [id number] [place] [address], [place] [address] Jun, [facility] [address] [id number] 15[address] Jun, [facility] [id number] [place] [address] [id number] Feb, [facility] [id number] [place] [address] Feb, [facility] [address] [id number] [address] Feb, [facility] [id number] [place] [address] [id number] Dec, [facility] [place] [facility] [id number] [place] [address] Dec, [facility] [id number] [place] [address] [id number] Dec, [facility] [address] [facility] [place] [address] Aug, [facility] [address] [facility] [place] [address] May, [facility] [address] [facility] [place] [id number] May, [facility] [id number] [place] [address] Apr, [facility] [id number] [place] [address] September, [facility] [id number] [place] [address] Apr, [facility] [id number] [place] [address] Apr, [facility] [id number] [place] [address] Apr, IMMUNIZATIONS No Known Immunizations SOCIAL HISTORY Never Assessed REASON FOR VISIT PLAN OF CARE VITAL SIGNS MEDICATIONS Unknown Medications RESULTS No Results PROCEDURES Procedure Date Ordered Result Body Site ASSAY THYROID STIM HORMONE Jun 14, 2013 LIPID PANEL Jun 14, 2013 COMPREHEN METABOLIC PANEL Jun 14, 2013 VENIPUNCT, ROUTINE* Jun 14, 2013 INSTRUCTIONS MEDICATIONS ADMINISTERED No Known Medications MEDICAL (GENERAL) HISTORY Type Description Date Medical History chronic obstructive pulmonary disease (C OPD) Medical History asthma Medical History acid reflux Medical History type II diabetes Medical History hypercholesterolemia Medical History GERD (gastroesophageal reflux disease) Medical History Essential hypertension, benign Surgical History tubal ligation 1992 Surgical History 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
--- OUTSIDE RECORDS SUMMARY | 2019-07-19 23:13 | XMS REPORT ---
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 Name Role Phone DISLAELLEN Unavailable PROBLEMS Type Condition ICD9-CM Code VZY76-FF Code Onset Dates Condition S tatus SNOMED Code Problem Other and unspecified hyperlipidemia E78.5 Active 12674574 Problem Type 2 diabetes mellitus wit h other specified complication, without long-term current use of insulin E11.69 Active 01780459 Problem Chronic airway obstruction, 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 Active 64682124 Problem CAD (coronary artery disease) I25.10 Active 08959931 ALLERGIES No Information ENCOUNTERS Encounter Location Date Diagnosis [address] [address] 0 5 Jul, [address] [address] 0 4 Jul, [address] [address] 1 4 Jun, [address] [id number] Apr, Type 2 diabetes mellitus with other specified complication, without long-term current use of insulin E11.69 ; Chronic airway obstruction, 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 and Acute nasopharyngitis J00 [address] [id number] Mar, Acute nasopharyngitis J00 [address] [id number] Mar, [address] [id number] Mar, Acute nasopharyngitis J00 [address] [id number] Mar, Encounter for immunization Z23 [facility] [address] [facility] [id number] [place] [address] Feb, Type 2 diabetes mellitus with other spec ified complication, without long-term current use of insulin E11.69 [address] [id number] Dec, Type 2 diabetes mellitus with other specified complication, without long-term current use of insulin E11.69 ; Chronic airway obstruction, 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 ; CAD (coronary artery disease) I25.10 and Deformity of toe of left foot M20.62 [place] [id number] [place] [address] [id number] Aug, Bilateral impacted cerumen H61.[address] [id number] Aug, Bilateral impacted cerumen H61.23 ; CAD (coronary artery disease) I25.10 and Other and unspecified hyperlipidemia E78.5 [place] [id number] [place] [address] [id number] Jun, Encounter for Medicare annual wellness exam Z00.00 ; Type 2 diabetes mellitus with other specified complication, without long-term current use of insulin E11.69 ; Chronic airway obstruction, 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 ; CAD (coronary artery disease) I25.10 ; Other and unspecified hyperlipidemia E78.5 and Breast cancer screening Z12.31 [place] [id number] [place] [address] [id number] Jun, DM w/o complication type II E11.9 ; Chronic airway obstruction, 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 ; CAD (coronary artery disease) I25.10 and Vertigo R42 [place] [id number] [place] [address] [id number] Feb, Encounter for immunization Z23 [address] [id number] Jan, DM w/o complication type II E11.9 and Chronic airway obstruction, 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 [place] [id number] [place] [address] [id number] Dec, CAD (coronary artery disease) I25.10 [place] [id number] [place] [address] [id number] Oct, DM w/o complication type II E11.9 ; Chronic airway obstruction, 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 and CAD (coronary artery disease) I25.[address] [id number] Jul, DM w/o complication type II E11.9 ; Chronic airway obstruction, 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 and Infective urethritis N34.[address] [id number] 05 Jun, 2017 Syncope and collapse R55 [address] [id number] Jun, [address] [id number] May, Bronchitis J40 [address] [id number] May, [address] [id number] May, [address] [id number] Apr, DM w/o complication type II E11.[address] [id number] Mar, DM w/o complication type II E11.9 ; Chronic airway obstruction, 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 ; Dysuria R30.0 ; Tinea pedis of right foot B35.3 and Encounter for immunization Z23 [address] [id number] Feb, Medicare welcome exam Z00.[address] [id number] Jan, Chronic airway obstruction, 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 [id number] Dec, [address] [id number] Dec, DM w/o complication type II E11.9 ; Chronic airway obstruction, 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 and Acute cystitis with hematuria N30.[address] [id number] 05 Oct, 2016 Encounter for screening for malignant neoplasm of colon Z12.[address] [id number] 02 Oct, 2016 Medicare welcome exam Z00.[address] [id number] September, Medicare welcome exam Z00.00 and Encounter for immunization Z23 [address] [id number] September, Bronchitis J40 [address] [id number] September, Bronchitis J40 [address] [id number] September, Other and unspecified hyperlipidemia E78.[address] [id number] Aug, DM w/o complication type II E11.9 ; Chronic airway obstruction, 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 and Other and unspecified hyperlipidemia E78.[address] [id number] May, DM w/o complication type II E11.9 and Chronic airway obstruction, 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 [place] [id number] [place] [address] [id number] Apr, Acute cystitis with hematuria N30.[address] [id number] Feb, DM w/o complication type II E11.[address] [id number] Feb, Chronic airway obstruction, 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 ; DM w/o complication type II E11.9 and Encounter for immunization Z23 [address] [id number] Dec, [address] [id number] Nov, Chronic airway obstruction, 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 [place] [id number] [place] [address] [id number] Oct, DM w/o complication type II E11.9 [facility] [address] [facility] [place] [address] Oct, [address] [id number] Aug, Chronic airway obstruction, 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 and DM w/o complication type II E11.[address] [id number] Aug, Chronic airway obstruction, 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 [id number] Aug, DM w/o complication type II E11.9 and Chronic airway obstruction, 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 [id number] Jul, [address] [id number] Jul, DM w/o complication type II E11.[address] [id number] Jun, [address] [id number] Jun, [address] [id number] Jun, Chronic airway obstruction, 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 ; DM w/o complication type II E11.9 and Other and unspecified hyperlipidemia E78.[address] [id number] 11 Jun, 2015 CAD (coronary artery disease) I25.10 and Dizziness R42 [address] [id number] 10 Jun, 2015 Bronchitis J40 [address] [id number] May, Hematoma T14.8 [place] [id number] May, [facility] [place] [id number] [place] [address] [id number] May, Bronchitis J40 [facility] [address] [id number] Apr, Bronchitis J40 [facility] [address] [facility] [place] [address] Apr, [facility] [address] [id number] Mar, [facility] [id number] [place] [address] [id number] Mar, [facility] [address] [id number] Mar, [facility] [id number] [place] [address] [id number] Mar, [address] [id number] Mar, SOB (shortness of breath) R06.[address] [id number] Feb, Urinary tract infection, site not specified N39.0 and Hematuria, unspecified R31.[address] [id number] Feb, DM w/o complication type II E11.9 ; Encounter for immunization Z23 and Chronic airway obstruction, 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 [id number] [employer] [place] [id number] Jan, [address] [id number] [employer] [place] [id number] Jan, [place] [id number] [place] [address] [id number] Dec, [address] [id number] Dec, [address] [id number] Dec, [address] [id number] Dec, [address] [id number] Dec, Blood in the stool 578.[address] [id number] Nov, [address] [id number] Nov, Colon cancer screening V76.[address] [id number] Nov, Vertigo 780.[address] [id number] Nov, Routine gynecological examination V72.31 ; Pap test, as part of routine gynecological examination V76.2 ; Breast cancer screening V76.10 ; Postmenopausal V49.81 and Colon cancer screening V76.[address] [id number] Nov, [address] [id number] Nov, [place] [address] [address] Nov, [address] [id number] Oct, Diabetes 250.00 ; COPD (chronic obstructive pulmonary disease) 496 and GERD (gastroesophageal reflux disease) 530.81 [facility] [address] [address] Oct, [address] [id number] Oct, [address] [id number] Oct, [address] [id number] Oct, Reflux 530.81 [facility] [address] [address] Oct, [address] [place] [id number] Oct, [facility] [address] [id number] Oct, [facility] [address] [place] [address] [id number] Oct, Dysuria 788.1 [facility] [address] [id number] Oct, Dysuria 788.1 [facility] [address] [address] September, [facility] [address] [id number] September, Diabetes 250.00 and COPD (chronic obstructive pulmonary disease) [address] [place] [id number] [place] [address] [id number] September, [facility] [place] [id number] [place] [address] [id number] September, [facility] [address] [id number] September, [facility] [address] [id number] Aug, Osteoarthritis 715.90 ; Diabetes 250.00 and COPD (chronic obstructive pulmonary disease) [address] [id number] Aug, Pure hypercholesterolemia 272.0 ; Essential hypertension, benign 401.1 and Loss of weight 783.21 [facility] [address] [place] [id number] [place] [address] Aug, [facility] [address] [address] Aug, [facility] [place] [id number] [place] [address] [id number] Jul, [facility] [address] [address] Jul, [facility] [address] [address] Jun, [facility] [address] [place] [id number] [place] [address] Jun, [facility] [address] [place] [id number] [place] [address], [place] [id number] Jun, [facility] [address] [place] [id number] [place] [address] May, [facility] [address] [place] [id number] [place] [address], [place] [id number] May, [facility] [address] [place] [id number] [place] [address], [place] [id number] Apr, [facility] [address] [place] [id number] [place] [address] Apr, [facility] [address] [place] [id number] [place] [address] [id number] Apr, [facility] [address] [place] [id number] [place] [address] Apr, [facility] [address] [place] [id number] [place] [address] [id number] Apr, [facility] [address] [place] [id number] [place] [address] Apr, [facility] [address] [id number] Feb, [facility] [address] [place] [id number] [place] [address] Feb, [facility] [address] [id number] [place] [address] [id number] Feb, [facility] [address] [place] [id number] [place] [address] Feb, [facility] [address] [place] [id number] [place] [address] Jan, [facility] [address] [place] [id number] [place] [address] [id number] Jan, [facility] [address] [place] [id number] [place] [address] Jan, [facility] [address] [place] [id number] [place] [address] [id number] Jan, [facility] [address] [facility] [place] [address] Jan, [facility] [address] [facility] [place] [address] Dec, [facility] [address] [facility] [place] [address] Dec, [facility] [address] [place] [address] [id number] September, [facility] [address] [facility] [place] [address] September, [facility] [address] [place] [id number] [place] [address] September, [facility] [address] [facility] [id number] September, [facility] [address] [place] [id number] September, [facility] [address] [place] [id number] [place] [address] September, [facility] [address] [facility] [id number] Aug, [facility] [address] [place] [id number] [place] [address] Aug, [facility] [address] [facility] [place] [address] Jul, [facility] [address] [facility] [id number] Jul, [facility] [address] [facility] [place] [address] Jul, [facility] [address] [place] [id number] Jun, [facility] [address] [facility] [place] [address] Jun, [facility] [address] [facility] [place] [address] Jun, [facility] [address] [facility] [id number] Jun, [facility] [address] [facility] [place] [id number] May, [facility] [place] [facility] [address] [place] [id number] [place] [address] May, [facility] [place] [facility] [address] [place] [address] [id number] [place] [address] Apr, [facility] [address] [place] [id number] Mar, [facility] [address] [place] [id number] [place] [address] Mar, [facility] [address] [place] [address] [id number] [place] [address] Mar, [facility] [address] [place] [address] [id number] [place] [address] Mar, [facility] [address] [id number] [place] [address] [id number] Mar, [facility] [address] [place] [id number] Feb, [facility] [address] [place] [id number] [place] [address] Feb, [facility] [address] [place] [id number] Feb, [facility] [address] [place] [id number] [place] [address] Feb, [facility] [address] [place] [id number] Feb, [facility] [address] [place] [id number] [place] [address] Feb, [facility] [address] [place] [id number] Jan, [facility] [address] [facility] [id number] Dec, [facility] [address] [id number] [place] [address] [id number] Nov, [facility] [address] [place] 12414757[facility] [place] [id number] Oct, [facility] [address] [place] 12414757[facility] [id number] Oct, [facility] [address] [place] 12414757[facility] [place] [id number] Oct, [facility] [address] [place] 12414757[facility] [place] [id number] Oct, [facility] [address] [place] [id number] [place] [address] September, [facility] [address] [place] [id number] [place] [address], [place] [id number] September, [facility] [address] [place] [id number] [place] [address] Aug, [facility] [address] [place] [id number] [place] [id number] Aug, [facility] [address], [place] [id number] Jun, [facility] [address] [place] [id number] [place] [address], [place] [id number] Jun, [facility] [address] [place] [id number] [place] [address] [id number] Feb, [facility] [address] [place] [id number] [place] [address] Feb, [facility] [address] [place] [id number] [place] [address] [id number] Feb, [facility] [address] [place] [id number] [place] [address] [id number] Dec, [facility] [address] [place] [address] [id number] [place] [address] Dec, [facility] [address] [id number] Dec, [facility] [address] [place] [id number] [place] [address] [id number] Aug, [facility] [address] [place] [id number] [place] [address] [id number] May, [facility] [address], [place] [address] May, [facility] [address] [facility] [place] [address] Apr, [facility] [address] [facility] [place] [address] September, [facility] [address] [facility] [place] [address] Apr, [facility] [address] [facility] [place] [address] Apr, [facility] [address] [id number] [place] [address] Apr, IMMUNIZATIONS No Known Immunizations SOCIAL HISTORY Never Assessed REASON FOR VISIT PLAN OF CARE VITAL SIGNS MEDICATIONS Unknown Medications RESULTS No Results PROCEDURES Procedure Date Ordered Result Body Site GLYCATED HEMOGLOBIN TEST September 28, 2013 INSTRUCTIONS MEDICATIONS ADMINISTERED No Known Medications [...]
--- OUTSIDE RECORDS SUMMARY | 2019-07-19 23:13 | XMS REPORT ---
Author Author Zoie DISLA Organization [address] Address [address] [place] [address] Care Team Providers Care Senior It Specialist Name Role Phone ELLEN DISLA Unavailable PROBLEMS Type Condition ICD9-CM Code REL31-XJ Code Onset Dates Condition S tatus SNOMED Code Problem Other and unspecified hyperlipidemia E78.5 Active 60626633 Problem Type 2 diabetes mellitus wit h other specified complication, without long-term current use of insulin E11.69 Active 31903423 Problem Chronic airway obstruction, 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 Active 45801953 Problem CAD (coronary artery disease) I25.10 Active 69762652 ALLERGIES No Information ENCOUNTERS Encounter Location Date Diagnosis [address] [address] 2 3 Jul, 2019 Encounter for Medicare annual wellness exam Z00.00 ; Chronic airway obstruction, 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 ; Other and unspecified hyperlipidemia E78.5 and Type 2 diabetes mellitus with other specified complication, without long-term current use of insulin E11.[address] [address] 0 4 Jul, 2019 Type 2 diabetes mellitus with other specified complication, without long-term current use of insulin E11.[address] [address] 1 4 Jun, [address] [place] [address] [id number] 02 Apr, 2019 Type 2 diabetes mellitus with other specified complication, without long-term current use of insulin E11.69 ; Chronic airway obstruction, 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 and Acute nasopharyngitis [address] [place] [id number] Mar, Acute nasopharyngitis [address] [place] [id number] [place] [id number] Mar, [address] [id number] Mar, Acute nasopharyngitis J00 [address] [id number] 06 Mar, 2019 Encounter for immunization Z23 [facility] [address] [facility] [place] [address] Feb, Type 2 diabetes mellitus with other spec ified complication, without long-term current use of insulin E11.[address] [id number] Dec, Type 2 diabetes mellitus with other specified complication, without long-term current use of insulin E11.69 ; Chronic airway obstruction, 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 ; CAD (coronary artery disease) I25.10 and Deformity of toe of left foot M20.[address] [id number] Aug, Bilateral impacted cerumen H61.[address] [id number] Aug, Bilateral impacted cerumen H61.23 ; CAD (coronary artery disease) I25.10 and Other and unspecified hyperlipidemia E78.[address] [id number] 19 Jun, 2018 Encounter for Medicare annual wellness exam Z00.00 ; Type 2 diabetes mellitus with other specified complication, without long-term current use of insulin E11.69 ; Chronic airway obstruction, 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 ; CAD (coronary artery disease) I25.10 ; Other and unspecified hyperlipidemia E78.5 and Breast cancer screening Z12.[address] [id number] 11 Jun, 2018 DM w/o complication type II E11.9 ; Chronic airway obstruction, 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 ; CAD (coronary artery disease) I25.10 and Vertigo R42 [address] [id number] Feb, Encounter for immunization Z23 [address] [id number] Jan, DM w/o complication type II E11.9 and Chronic airway obstruction, 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 [id number] Dec, CAD (coronary artery disease) I25.[address] [id number] Oct, DM w/o complication type II E11.9 ; Chronic airway obstruction, 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 and CAD (coronary artery disease) I25.[address] [id number] Jul, DM w/o complication type II E11.9 ; Chronic airway obstruction, 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 and Infective urethritis N34.[address] [id number] Jun, Syncope and collapse R55 [address] [id number] Jun, [address] [id number] May, Bronchitis J40 [address] [id number] May, [address] [id number] May, [address] [id number] Apr, DM w/o complication type II E11.[address] [id number] Mar, DM w/o complication type II E11.9 ; Chronic airway obstruction, 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 ; Dysuria R30.0 ; Tinea pedis of right foot B35.3 and Encounter for immunization Z23 [address] [id number] 04 Feb, 2017 Medicare welcome exam Z00.[address] [id number] 07 Jan, 2017 Chronic airway obstruction, 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 [id number] Dec, [address] [id number] Dec, DM w/o complication type II E11.9 ; Chronic airway obstruction, 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 and Acute cystitis with hematuria N30.[address] [id number] Oct, Encounter for screening for malignant neoplasm of colon Z12.[address] [id number] Oct, Medicare welcome exam Z00.[address] [id number] September, Medicare welcome exam Z00.00 and Encounter for immunization Z23 [address] [id number] September, Bronchitis J40 [address] [id number] September, Bronchitis J40 [address] [id number] September, Other and unspecified hyperlipidemia E78.[address] [id number] Aug, DM w/o complication type II E11.9 ; Chronic airway obstruction, 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 and Other and unspecified hyperlipidemia E78.[address] [id number] May, DM w/o complication type II E11.9 and Chronic airway obstruction, 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 [id number] Apr, Acute cystitis with hematuria N30.[address] [id number] Feb, DM w/o complication type II E11.[address] [id number] Feb, Chronic airway obstruction, 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 ; DM w/o complication type II E11.9 and Encounter for immunization Z23 [facility] [address] [id number] Dec, [facility] [address] [id number] Nov, Chronic airway obstruction, 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 [id number] Oct, DM w/o complication type II E11.9 [facility] [address] [facility] [place] [address] Oct, [address] [id number] Aug, Chronic airway obstruction, 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 and DM w/o complication type II E11.[address] [id number] Aug, Chronic airway obstruction, 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 [facility] [address] [id number] Aug, DM w/o complication type II E11.9 and Chronic airway obstruction, 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 [id number] Jul, [address] [id number] Jul, DM w/o complication type II E11.[address] [id number] Jun, [facility] [address] [id number] Jun, [address] [id number] Jun, Chronic airway obstruction, 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 ; DM w/o complication type II E11.9 and Other and unspecified hyperlipidemia E78.5 [facility] [place] [address] [id number] Jun, CAD (coronary artery disease) I25.10 and Dizziness R42 [facility] [place] [address] [id number] 10 Jun, 2015 Bronchitis J40 [facility] [place] [address] [id number] May, Hematoma T14.8 [facility] [address] [id number] May, [facility] [place] [address] [id number] May, Bronchitis J40 [facility] [place] [address] [id number] Apr, Bronchitis J40 [facility] [address] [id number] [place] [address] Apr, [address] [id number] Mar, [facility] [id number] [place] [id number] Mar, [address] [id number] Mar, [facility] [id number] [place] [id number] Mar, [address] [id number] Mar, SOB (shortness of breath) R06.[address] [id number] Feb, Urinary tract infection, site not specified N39.0 and Hematuria, unspecified R31.[address] [id number] Feb, DM w/o complication type II E11.9 ; Encounter for immunization Z23 and Chronic airway obstruction, 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 [id number] [address] Jan, [address] [id number] [address] Jan, [address] [id number] Dec, [facility] [address] [id number] Dec, [facility] [address] [id number] Dec, [facility] [address] [id number] Dec, [address] [id number] Dec, Blood in the stool 578.[address] [id number] Nov, [address] [id number] Nov, Colon cancer screening V76.[address] [id number] Nov, Vertigo 780.[address] [id number] Nov, Routine gynecological examination V72.31 ; Pap test, as part of routine gynecological examination V76.2 ; Breast cancer screening V76.10 ; Postmenopausal V49.81 and Colon cancer screening V76.[address] [id number] Nov, [address] [id number] Nov, [facility] [address] [address] Nov, [address] [id number] Oct, Diabetes 250.00 ; COPD (chronic obstructive pulmonary disease) 496 and GERD (gastroesophageal reflux disease) 530.81 [facility] [address] [address] Oct, [address] [id number] Oct, [address] [id number] Oct, [facility] [place] [address] [facility] [address] Oct, Reflux 530.81 [facility] [place] [facility] [address] [address] Oct, [facility] [address] [place] [address] [id number] Oct, [facility] [address] [id number] Oct, [facility] [address] [id number] Oct, Dysuria 788.1 [facility] [address] [id number] Oct, Dysuria 788.1 [facility] [address] [address] September, [facility] [place] [address] [id number] September, Diabetes 250.00 and COPD (chronic obstructive pulmonary disease) [id number] [place] [address] [id number] September, [facility] [place] [id number] [place] [address] [id number] September, [facility] [place] [address] [place] [address] September, [facility] [place] [address] [address] Aug, Osteoarthritis 715.90 ; Diabetes 250.00 and COPD (chronic obstructive pulmonary disease) 496 [facility] [place] [address] [place] [address] [id number] Aug, Pure hypercholesterolemia 272.0 ; Essential hypertension, benign 401.1 and Loss of weight 783.21 [facility] [id number] [place] [address] Aug, [facility] [address] [address] Aug, [facility] [address] [id number] Jul, [facility] [address] [id number] [place] [address] Jul, [facility] [address] [id number] [place] [address] Jun, [facility] [address] [id number] [place] [address] Jun, [facility] [address] [id number] [id number] Jun, [facility] [id number] [place] [address] May, [facility] [id number] [place] [address], [place] [id number] May, [facility] [address] [id number] [id number] Apr, [facility] [id number] [place] [address] Apr, [facility] [address] [id number] [address] Apr, [facility] [id number] [place] [address] Apr, [facility] [address] [id number] [address] Apr, [facility] [address] [id number] [place] [address] Apr, [facility] [id number] [place] [address] [id number] Feb, [facility] [id number] [place] [address] Feb, [facility] [id number] [place] [address] [id number] Feb, [facility] [id number] [place] [address] Feb, [facility] [id number] [place] [address] Jan, [facility] [address] [facility] [id number] Jan, [facility] [id number] [place] [address] Jan, [facility] [address] [facility]07757[facility] [id number] Jan, [facility] [address] [id number] [place] [address] Jan, [facility] [id number] [place] [address] Dec, [facility] [id number] [place] [address] Dec, [facility] [address] [id number] [id number] September, [facility] [id number] [place] [address] September, [facility] [id number] [place] [address] September, [facility] [address] [id number] [id number] September, [facility] [address] [id number] [id number] September, [facility] [id number] [place] [address] September, [facility] [address] [id number] [id number] Aug, [facility] [address] [id number] [place] [address] Aug, [facility] [id number] [place] [address] Jul, [facility] [address] [id number] [id number] Jul, [facility] [id number] [place] [address] Jul, [facility] [id number] [place] [address] [id number] Jun, [facility] [address] [id number] [place] [address] Jun, [facility] [address] [id number] [place] [address] Jun, [facility] [address] [facility]07757[facility] [id number] Jun, [facility] [address] [id number] [id number] May, [facility] [address] [id number] [place] [address] May, [facility] [id number] [place] [address] Apr, [facility] [address] [id number] [id number] Mar, [facility] [id number] [place] [address] Mar, [facility] [id number] [place] [address] Mar, [facility] [id number] [place] [address] Mar, [facility] [address] [id number] [id number] Mar, [facility] [address] [place] [id number] Feb, [facility] [id number] [place] [address] Feb, [facility] [address] [place] [id number] Feb, [facility] [id number] [place] [address] Feb, [facility] [address] [place] [address] Feb, [facility] [id number] [place] [address] Feb, [facility] [address] [id number] [id number] Jan, [facility] [address] [id number] [id number] Dec, [facility] [address] [id number] [id number] Nov, [facility] [address] [id number] [id number] Oct, [facility] [id number] [place] [address], [place] [id number] Oct, [facility] [address] [id number] [id number] Oct, [facility] [id number] [place] [address], [place] [id number] Oct, [facility] [id number] [place] [address] September, [facility] [id number] [place] [address], [place] [id number] September, [facility] [id number] [place] [address] Aug, [facility] [address] [id number] [id number] Aug, [facility] [id number] [place] [address], [place] [id number] Jun, [facility] [address] [id number] [id number] Jun, [facility] [id number] [place] [address] [id number] Feb, [facility] [id number] [place] [address] Feb, [facility] [address] [place] [id number] Feb, [facility] [id number] [place] [address] [id number] Dec, [facility] [place] [facility] [address] [id number] [place] [address] Dec, [facility] [id number] [place] [address] [id number] Dec, [facility] [address] [facility]757G [place] [id number] Aug, [facility] [address] [facility] [place] [id number] May, [facility] [address] [facility]07757G [place] [id number] May, [facility] [id number] [place] [address] Apr, [facility] [id number] [place] [address] September, [facility] [id number] [place] [address] Apr, [facility] [id number] [place] [address] Apr, [facility] [id number] [place] [address] Apr, IMMUNIZATIONS No Known Immunizations SOCIAL HISTORY Never Assessed REASON FOR VISIT PLAN OF CARE VITAL SIGNS MEDICATIONS Unknown Medications RESULTS No Results PROCEDURES Procedure Date Ordered Result Body Site LIPID PANEL July 30, 2013 COMPREHEN METABOLIC PANEL July 30, 2013 JACI, ROUTINE* July 30, 2013 INSTRUCTIONS MEDICATIONS ADMINISTERED No Known Medications [...]
--- OUTSIDE RECORDS SUMMARY | 2019-07-19 23:13 | XMS REPORT ---
Author Author Zoie DISLA Organization [address] Address [address] [place] [address] Care Team Providers Care Registered Dental Assistant Name Role Phone ELLEN DISLA Unavailable PROBLEMS Type Condition ICD9-CM Code [id number]-IQ Code Onset Dates Condition S tatus SNOMED Code Problem Other and unspecified hyperlipidemia E78.5 Active 97517716 Problem Type 2 diabetes mellitus wit h other specified complication, without long-term current use of insulin E11.69 Active 66363378 Problem Chronic airway obstruction, 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 Active 47343465 Problem CAD (coronary artery disease) I25.10 Active [id number] ALLERGIES No Information ENCOUNTERS Encounter Location Date Diagnosis [address] [address] 2 3 Jul, 2019 Encounter for Medicare annual wellness exam Z00.00 ; Chronic airway obstruction, 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 ; Other and unspecified hyperlipidemia E78.5 and Type 2 diabetes mellitus with other specified complication, without long-term current use of insulin E11.[address] [address] 0 4 Jul, 2019 Type 2 diabetes mellitus with other specified complication, without long-term current use of insulin E11.[address] [address] 1 4 Jun, [address] [place] [id number] 02 Apr, 2019 Type 2 diabetes mellitus with other specified complication, without long-term current use of insulin E11.69 ; Chronic airway obstruction, 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 and Acute nasopharyngitis [address] [id number] [id number] Mar, Acute nasopharyngitis [address] [place] [id number] [place] [address] [id number] Mar, [address] [id number] Mar, Acute nasopharyngitis J00 [address] [id number] 06 Mar, 2019 Encounter for immunization Z23 [facility] [address] [facility] [place] [address] Feb, Type 2 diabetes mellitus with other spec ified complication, without long-term current use of insulin E11.[address] [id number] Dec, Type 2 diabetes mellitus with other specified complication, without long-term current use of insulin E11.69 ; Chronic airway obstruction, 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 ; CAD (coronary artery disease) I25.10 and Deformity of toe of left foot M20.[address] [id number] Aug, Bilateral impacted cerumen H61.[address] [id number] Aug, Bilateral impacted cerumen H61.23 ; CAD (coronary artery disease) I25.10 and Other and unspecified hyperlipidemia E78.[address] [id number] 19 Jun, 2018 Encounter for Medicare annual wellness exam Z00.00 ; Type 2 diabetes mellitus with other specified complication, without long-term current use of insulin E11.69 ; Chronic airway obstruction, 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 ; CAD (coronary artery disease) I25.10 ; Other and unspecified hyperlipidemia E78.5 and Breast cancer screening Z12.[address] [id number] 11 Jun, 2018 DM w/o complication type II E11.9 ; Chronic airway obstruction, 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 ; CAD (coronary artery disease) I25.10 and Vertigo R42 [address] [id number] Feb, Encounter for immunization Z23 [address] [id number] Jan, DM w/o complication type II E11.9 and Chronic airway obstruction, 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 [id number] Dec, CAD (coronary artery disease) I25.[address] [id number] Oct, DM w/o complication type II E11.9 ; Chronic airway obstruction, 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 and CAD (coronary artery disease) I25.[address] [id number] Jul, DM w/o complication type II E11.9 ; Chronic airway obstruction, 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 and Infective urethritis N34.[address] [id number] Jun, Syncope and collapse R55 [address] [id number] Jun, [address] [id number] May, Bronchitis J40 [address] [id number] May, [address] [id number] May, [address] [id number] Apr, DM w/o complication type II E11.[address] [id number] Mar, DM w/o complication type II E11.9 ; Chronic airway obstruction, 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 ; Dysuria R30.0 ; Tinea pedis of right foot B35.3 and Encounter for immunization Z23 [address] [id number] 04 Feb, 2017 Medicare welcome exam Z00.[address] [id number] 07 Jan, 2017 Chronic airway obstruction, 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 [id number] Dec, [address] [id number] Dec, DM w/o complication type II E11.9 ; Chronic airway obstruction, 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 and Acute cystitis with hematuria N30.[address] [id number] Oct, Encounter for screening for malignant neoplasm of colon Z12.[address] [id number] Oct, Medicare welcome exam Z00.[address] [id number] September, Medicare welcome exam Z00.00 and Encounter for immunization Z23 [address] [id number] September, Bronchitis J40 [address] [id number] September, Bronchitis J40 [address] [id number] September, Other and unspecified hyperlipidemia E78.[address] [id number] Aug, DM w/o complication type II E11.9 ; Chronic airway obstruction, 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 and Other and unspecified hyperlipidemia E78.[address] [id number] May, DM w/o complication type II E11.9 and Chronic airway obstruction, 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 [id number] Apr, Acute cystitis with hematuria N30.[address] [id number] Feb, DM w/o complication type II E11.[address] [id number] Feb, Chronic airway obstruction, 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 ; DM w/o complication type II E11.9 and Encounter for immunization Z23 [facility] [address] [id number] Dec, [facility] [address] [id number] Nov, Chronic airway obstruction, 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 [id number] Oct, DM w/o complication type II E11.9 [facility] [address] [facility] [place] [address] Oct, [address] [id number] Aug, Chronic airway obstruction, 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 and DM w/o complication type II E11.[address] [id number] Aug, Chronic airway obstruction, 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 [facility] [address] [id number] Aug, DM w/o complication type II E11.9 and Chronic airway obstruction, 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 [id number] Jul, [address] [id number] Jul, DM w/o complication type II E11.[address] [id number] Jun, [facility] [address] [id number] Jun, [address] [id number] Jun, Chronic airway obstruction, 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 ; DM w/o complication type II E11.9 and Other and unspecified hyperlipidemia E78.5 [facility] [address] [id number] Jun, CAD (coronary artery disease) I25.10 and Dizziness R42 [facility] [address] [id number] 10 Jun, 2015 Bronchitis J40 [facility] [address] [id number] May, Hematoma T14.8 [facility] [address] [id number] May, [facility] [address] [id number] May, Bronchitis J40 [facility] [address] [id number] Apr, Bronchitis J40 [facility] [address] [facility] [place] [address] Apr, [address] [id number] Mar, [facility] [id number] [place] [id number] Mar, [address] [id number] Mar, [facility] [id number] [place] [id number] Mar, [address] [id number] Mar, SOB (shortness of breath) R06.[address] [id number] Feb, Urinary tract infection, site not specified N39.0 and Hematuria, unspecified R31.[address] [id number] Feb, DM w/o complication type II E11.9 ; Encounter for immunization Z23 and Chronic airway obstruction, 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 [id number] [id number] Jan, [address] [id number] [id number] Jan, [address] [id number] Dec, [facility] [address] [id number] Dec, [facility] [address] [id number] Dec, [facility] [address] [id number] Dec, [address] [id number] Dec, Blood in the stool 578.[address] [id number] Nov, [address] [id number] Nov, Colon cancer screening V76.[address] [id number] Nov, Vertigo 780.[address] [id number] Nov, Routine gynecological examination V72.31 ; Pap test, as part of routine gynecological examination V76.2 ; Breast cancer screening V76.10 ; Postmenopausal V49.81 and Colon cancer screening V76.[address] [id number] Nov, [address] [id number] Nov, [facility] [address] [address] Nov, [address] [id number] Oct, Diabetes 250.00 ; COPD (chronic obstructive pulmonary disease) 496 and GERD (gastroesophageal reflux disease) 530.81 [facility] [address] [address] Oct, [address] [id number] Oct, [address] [id number] Oct, [facility] [place] [address] [facility] [id number] Oct, Reflux 530.81 [facility] [address] [address] Oct, [facility] [address] [place] [address] [id number] Oct, [facility] [address] [id number] Oct, [facility] [address] [id number] Oct, Dysuria 788.1 [facility] [address] [id number] Oct, Dysuria 788.1 [facility] [address] [address] September, [facility] [address] [id number] September, Diabetes 250.00 and COPD (chronic obstructive pulmonary disease) [id number] [place] [address] [id number] September, [facility] [place] [address] [id number] [place] [address] [id number] September, [facility] [address] [place] [address] September, [facility] [address] [address] Aug, Osteoarthritis 715.90 ; Diabetes 250.00 and COPD (chronic obstructive pulmonary disease) 496 [facility] [address] [place] [address] [id number] Aug, Pure hypercholesterolemia 272.0 ; Essential hypertension, benign 401.1 and Loss of weight 783.21 [facility] [id number] [place] [address] Aug, [facility] [address] [address] Aug, [facility] [address] [id number] Jul, [facility] [address] [facility] [place] [address] Jul, [facility] [address] [facility] [place] [address] Jun, [facility] [address] [facility] [place] [address] Jun, [facility] [address]3982757[facility] [id number] Jun, [facility] [id number] [place] [address] May, [facility] [id number] [place] [address], [place] [id number] May, [facility] [address] 03982757[facility] [id number] Apr, [facility] [id number] [place] [address] Apr, [facility] [address] [place] [id number] Apr, [facility] [id number] [place] [address] Apr, [facility] [address] [place] [id number] Apr, [facility] [address] [facility] [place] [address] Apr, [facility] [id number] [place] [address] [id number] Feb, [facility] [id number] [place] [address] Feb, [facility] [id number] [place] [address] [id number] Feb, [facility] [id number] [place] [address] Feb, [facility] [id number] [place] [address] Jan, [facility] [address] [facility]757[facility] [place] [id number] Jan, [facility] [id number] [place] [address] Jan, [facility] [address] [facility]07757[facility] [id number] Jan, [facility] [address] [facility] [place] [address] Jan, [facility] [id number] [place] [address] Dec, [facility] [id number] [place] [address] Dec, [facility] [address]3982757[facility] [id number] September, [facility] [id number] [place] [address] September, [facility] [id number] [place] [address] September, [facility] [address]3982757[facility], [place] [id number] September, [facility] [address]3982757[facility] [id number] September, [facility] [id number] [place] [address] September, [facility] [place] [address]3982757[facility] [id number] Aug, [facility] [address] [facility] [place] [address] Aug, [facility] [id number] [place] [address] Jul, [facility] [address]3982757[facility] [id number] Jul, [facility] [address] [id number] [place] [address] Jul, [facility] [id number] [place] [address] [id number] Jun, [facility] [address] [facility] [place] [address] Jun, [facility] [address] [facility] [place] [address] Jun, [facility] [place] [address] [facility]07757[facility] [id number] Jun, [facility] [address]3982757[facility] [id number] May, [facility] [address] [facility] [place] [address] May, [facility] [id number] [place] [address] Apr, [facility] [place] [address]3982757[facility] [id number] Mar, [facility] [id number] [place] [address] Mar, [facility] [id number] [place] [address] Mar, [facility] [id number] [place] [address] Mar, [facility] [place] [address] [place] [address] Mar, [facility] [place] [address] [place]27[place] [address] Feb, [facility] [id number] [place] [address] Feb, [facility] [address] [place] [address] Feb, [facility] [id number] [place] [address] Feb, [facility] [address] [place] [address] Feb, [facility] [id number] [place] [address] Feb, [facility] [address] 42282SF[facility]041D[facility] [address] Jan, [facility] [address] [id number] [place] [address] Dec, [facility] [address] [id number] [address] Nov, [facility] [address] 21970757[facility], [place] [address] Oct, [facility] [id number] [place] [address], [place] [address] Oct, [facility] [address] 21970757[facility], [place] [address] Oct, [facility] [id number] [place] [address], [place] [id number] Oct, [facility] [id number] [place] [address] September, [facility] [id number] [place] [address], [place] [id number] September, [facility] [id number] [place] [address] Aug, [facility] [address] [id number], [place] [id number] Aug, [facility] [id number] [place] [address], [place] [id number] Jun, [facility] [address] 21970757[facility], [place] [id number] Jun, [facility] [id number] [place] [address] [id number] Feb, [facility] [id number] [place] [address] Feb, [facility] [address] [place] [address] Feb, [facility] [id number] [place] [address] [id number] Dec, [facility] [place] [facility] [id number] [place] [address] Dec, [facility] [id number] [place] [address] [id number] Dec, [facility] [address] [facility]G [place] [address] Aug, [facility] [address] [facility] [place] [id number] May, [facility] [address] [facility] [place] [id number] May, [facility] [id number] [place] [address] Apr, [facility] [id number] [place] [address] September, [facility] [id number] [place] [address] Apr, [facility] [id number] [place] [address] Apr, [facility] [id number] [place] [address] Apr, IMMUNIZATIONS No Known Immunizations SOCIAL HISTORY Never Assessed REASON FOR VISIT PLAN OF CARE VITAL SIGNS Height 66 in 2013-07-08 Weight 143.2 lbs 2013-07-08 Temperature 98.2 degrees Fahrenheit 2013-07-08 Heart Rate 72 bpm 2013-07-08 Respiratory Rate 16 2013-07-08 Blood pressure systolic 110 mmHg 2013-07-08 Blood pressure diastolic 78 mmHg 2013-07-08 MEDICATIONS Unknown Medications RESULTS No Results PROCEDURES No Known procedures INSTRUCTIONS MEDICATIONS ADMINISTERED No Known Medications MEDICAL [...]
--- OUTSIDE RECORDS SUMMARY | 2019-07-19 23:14 | XMS REPORT ---
Author Author Zoie DISLA Organization [address] Address [address] [place] [address] Care Team Providers Care Housekeeper Child Care Name Role Phone DISLAELLEN Conrad Unavailable PROBLEMS Type Condition ICD9-CM Code TUQ67-RM Code Onset Dates Condition S tatus SNOMED Code Problem Other and unspecified hyperlipidemia E78.5 Active 64497893 Problem Type 2 diabetes mellitus wit h other specified complication, without long-term current use of insulin E11.69 Active 60741080 Problem Chronic airway obstruction, 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 Active 96694351 Problem CAD (coronary artery disease) I25.10 Active 75835402 ALLERGIES No Information ENCOUNTERS Encounter Location Date Diagnosis [address] [place] [address] 0 5 Jul, 2019 [facility] [id number] [place] [address] [id number] Apr, Type 2 diabetes mellitus with other specified complication, without long-term current use of insulin E11.69 ; Chronic airway obstruction, 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 and Acute nasopharyngitis [id number] [place] [address] [id number] Mar, Acute nasopharyngitis J00 [facility] [address] [id number] Mar, [facility] [address] [id number] Mar, Acute nasopharyngitis J00 [facility] [address] [id number] Mar, Encounter for immunization Z23 [facility] [address] [facility] [place] [address] Feb, Type 2 diabetes mellitus with other spec ified complication, without long-term current use of insulin E11.[address] [id number] Dec, Type 2 diabetes mellitus with other specified complication, without long-term current use of insulin E11.69 ; Chronic airway obstruction, 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 ; CAD (coronary artery disease) I25.10 and Deformity of toe of left foot M20.[address] [id number] Aug, Bilateral impacted cerumen H61.[address] [id number] Aug, Bilateral impacted cerumen H61.23 ; CAD (coronary artery disease) I25.10 and Other and unspecified hyperlipidemia E78.[address] [id number] Jun, Encounter for Medicare annual wellness exam Z00.00 ; Type 2 diabetes mellitus with other specified complication, without long-term current use of insulin E11.69 ; Chronic airway obstruction, 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 ; CAD (coronary artery disease) I25.10 ; Other and unspecified hyperlipidemia E78.5 and Breast cancer screening Z12.[address] [id number] 11 Jun, 2018 DM w/o complication type II E11.9 ; Chronic airway obstruction, 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 ; CAD (coronary artery disease) I25.10 and Vertigo R42 [address] [id number] Feb, Encounter for immunization Z23 [address] [id number] Jan, DM w/o complication type II E11.9 and Chronic airway obstruction, 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 [id number] Dec, CAD (coronary artery disease) I25.[address] [id number] Oct, DM w/o complication type II E11.9 ; Chronic airway obstruction, 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 and CAD (coronary artery disease) I25.[address] [id number] Jul, DM w/o complication type II E11.9 ; Chronic airway obstruction, 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 and Infective urethritis N34.[address] [id number] 05 Jun, 2017 Syncope and collapse R55 [address] [id number] 02 Jun, [address] [id number] May, Bronchitis J40 [address] [id number] May, [address] [id number] May, [address] [id number] Apr, DM w/o complication type II E11.[address] [id number] Mar, DM w/o complication type II E11.9 ; Chronic airway obstruction, 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 ; Dysuria R30.0 ; Tinea pedis of right foot B35.3 and Encounter for immunization Z23 [address] [id number] 04 Feb, 2017 Medicare welcome exam Z00.[address] [id number] Jan, Chronic airway obstruction, 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 [id number] Dec, [address] [id number] Dec, DM w/o complication type II E11.9 ; Chronic airway obstruction, 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 and Acute cystitis with hematuria N30.[address] [id number] Oct, Encounter for screening for malignant neoplasm of colon Z12.11 [id number] [place] [address] [id number] Oct, Medicare welcome exam Z00.[address] [id number] September, Medicare welcome exam Z00.00 and Encounter for immunization Z23 [address] [id number] September, Bronchitis J40 [address] [id number] September, Bronchitis J40 [address] [id number] September, Other and unspecified hyperlipidemia E78.[address] [id number] Aug, DM w/o complication type II E11.9 ; Chronic airway obstruction, 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 and Other and unspecified hyperlipidemia E78.[address] [id number] May, DM w/o complication type II E11.9 and Chronic airway obstruction, 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 [id number] Apr, Acute cystitis with hematuria N30.[address] [id number] Feb, DM w/o complication type II E11.[address] [id number] Feb, Chronic airway obstruction, 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 ; DM w/o complication type II E11.9 and Encounter for immunization Z23 [address] [id number] Dec, [address] [id number] Nov, Chronic airway obstruction, 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 [id number] Oct, DM w/o complication type II E11.9 [facility] [address] [facility] [place] [address] Oct, [address] [id number] Aug, Chronic airway obstruction, 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 and DM w/o complication type II E11.[address] [id number] Aug, Chronic airway obstruction, 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 [id number] Aug, DM w/o complication type II E11.9 and Chronic airway obstruction, 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 [id number] Jul, [address] [id number] Jul, DM w/o complication type II E11.[address] [id number] Jun, [address] [id number] Jun, [address] [id number] Jun, Chronic airway obstruction, 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 ; DM w/o complication type II E11.9 and Other and unspecified hyperlipidemia E78.[address] [id number] 11 Jun, 2015 CAD (coronary artery disease) I25.10 and Dizziness R42 [address] [id number] 10 Jun, 2015 Bronchitis J40 [address] [id number] 14 May, 2015 Hematoma T14.[address] [id number] May, [address] [id number] May, Bronchitis J40 [address] [place] [address] Apr, Bronchitis J40 [facility] [address] [facility] [place] [address] Apr, [address] [id number] Mar, [facility] [address] [id number] [place] [id number] Mar, [address] [id number] Mar, [facility] [address] [id number] [place] [id number] Mar, [address] [id number] Mar, SOB (shortness of breath) R06.[address] [id number] Feb, Urinary tract infection, site not specified N39.0 and Hematuria, unspecified R31.[address] [id number] Feb, DM w/o complication type II E11.9 ; Encounter for immunization Z23 and Chronic airway obstruction, 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 [id number] [address] Jan, [id number] [id number] Jan, [id number] [place] [address] [id number] Dec, [address] [id number] Dec, [address] [id number] Dec, [address] [id number] Dec, [address] [id number] Dec, Blood in the stool 578.1 [facility] [id number] [place] [address] [id number] Nov, [address] [id number] Nov, Colon cancer screening V76.51 [id number] [place] [address] [id number] Nov, Vertigo 780.[address] [id number] Nov, Routine gynecological examination V72.31 ; Pap test, as part of routine gynecological examination V76.2 ; Breast cancer screening V76.10 ; Postmenopausal V49.81 and Colon cancer screening V76.[address] [id number] Nov, [address] [id number] Nov, [address] [address] Nov, [address] [id number] Oct, Diabetes 250.00 ; COPD (chronic obstructive pulmonary disease) 496 and GERD (gastroesophageal reflux disease) [id number] [place] [address] Oct, [id number] [place] [address] [id number] Oct, [address] [id number] Oct, [address] [id number] Oct, Reflux 530.81 [facility] [address] [address] Oct, [address] [id number] Oct, [address] [id number] Oct, [address] [address] Oct, Dysuria 788.1 [facility] [address] [address] Oct, Dysuria 788.1 [facility] [id number] [place] [address] September, [facility] [address] [address] September, Diabetes 250.00 and COPD (chronic obstructive pulmonary disease) [address] [place] [address] [id number] September, [facility] [id number] [place] [address] [id number] September, [facility] [address] [facility] [address] September, [facility] [address] [address] Aug, Osteoarthritis 715.90 ; Diabetes 250.00 and COPD (chronic obstructive pulmonary disease) [facility] [address] [address] Aug, Pure hypercholesterolemia 272.0 ; Essential hypertension, benign 401.1 and Loss of weight 783.21 [facility] [id number] [place] [address] Aug, [facility] [address] [address] Aug, [facility] [id number] [place] [address] [id number] Jul, [facility] [address] [address] Jul, [facility] [address] [address] Jun, [facility] [address] [address] Jun, [facility] [id number] [place] [address] [id number] Jun, [facility] [address] [facility] [place] [address] May, [facility] [address] [place] [address] May, [facility] [address] [place] [address] Apr, [facility] [id number] [place] [address] Apr, [facility] [address] [place] [address] Apr, [facility] [id number] [place] [address] Apr, [facility] [address] [place] [id number] Apr, [facility] [id number] [place] [address] Apr, [facility] [address] [place] [address] [id number] Feb, [facility] [id number] [place] [address] Feb, [facility] [address] [place] [id number] Feb, [facility] [id number] [place] [address] Feb, [facility] [id number] [place] [address] Jan, [facility] [address] [place] [address] Jan, [facility] [id number] [place] [address] Jan, [facility] [address] [place] [address] Jan, [facility] [id number] [place] [address] Jan, [facility] [id number] [place] [address] Dec, [facility] [address] [facility] [place] [address] Dec, [facility] [id number] [id number] September, [facility] [id number] [place] [address] September, [facility] [id number] [place] [address] September, [facility] [id number] [id number] September, [facility] [address] [place] [address], [place] [id number] September, [facility] [id number] [place] [address] September, [facility] [address] [place] [id number] Aug, [facility] [id number] [place] [address] Aug, [facility] [id number] [place] [address] Jul, [facility] [address] [place] [id number] Jul, [facility] [id number] [place] [address] Jul, [facility] [address] [place] [address] Jun, [facility] [id number] [place] [address] Jun, [facility] [id number] [place] [address] Jun, [facility] [address] [place] [address] Jun, [facility] [address] [place] [address] [id number] May, [facility] [address] [facility] [place] [address] May, [facility] [id number] [place] [address] Apr, [facility] [id number] [id number] Mar, [facility] [id number] [place] [address] Mar, [facility] [id number] [place] [address] Mar, [facility] [id number] [place] [address] Mar, [facility] [id number] [id number] Mar, [facility] [id number] [place] [address], [place] [id number] Feb, [facility] [place] [facility] [id number] [place] [address] Feb, [facility] [id number] [place] [address] [id number] Feb, [facility] [id number] [place] [address] Feb, [facility] [address] [place] [id number] Feb, [facility] [place] [facility] [id number] [place] [address] Feb, [facility] [id number] [id number] Jan, [facility] [id number] [id number] Dec, [facility] [address] [id number] Nov, [facility] [address] [id number] Oct, [facility] [id number] [place] [address], [place] [id number] Oct, [facility] [address] [id number] Oct, [facility] [address] [facility] [place] [id number] Oct, [facility] [place] [id number] [place] [address] September, [facility] [address] [id number] September, [facility] [id number] [place] [address] Aug, [facility] [address] [id number] Aug, [facility] [id number] [place] [address], [place] [id number] Jun, [facility] [id number] [id number] Jun, [facility] [place] [id number] [place] [address], [place] [id number] Feb, [facility] [id number] [place] [address] Feb, [facility] [id number] [id number] Feb, [facility] [id number] [id number] Dec, [facility] [address] [facility] [place] [address] Dec, [facility] [id number] [place] [address] [id number] Dec, [facility] [id number] [id number] Aug, [facility] [id number] [id number] May, [facility] [address] [place] [address] May, [facility] [address] [facility] [place] [address] Apr, [facility] [id number] [place] [address] 11 Sep, 2010 [facility] [address] [facility] [place] [address] Apr, [facility] [address] [facility] [place] [address] Apr, [facility] [address] [facility] [place] [address] Apr, IMMUNIZATIONS No Known Immunizations SOCIAL HISTORY Never Assessed REASON FOR VISIT PLAN OF CARE VITAL SIGNS Height 66 in 2013-09-06 Weight 145.2 lbs 2013-09-06 Temperature 97.6 degrees Fahrenheit 2013-09-06 Heart Rate 76 bpm 2013-09-06 Respiratory Rate 18 2013-09-06 Blood pressure systolic 124 mmHg 2013-09-06 Blood pressure diastolic 72 mmHg 2013-09-06 MEDICATIONS Unknown Medications RESULTS No Results PROCEDURES [...]
--- OUTSIDE RECORDS SUMMARY | 2019-07-19 23:14 | XMS REPORT ---
Author Author Zoie DISLA Organization 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 Name Role Phone ELLEN DISLA Unavailable PROBLEMS Type Condition ICD9-CM Code [id number] Code Onset Dates Condition S tatus SNOMED Code Problem Other and unspecified hyperlipidemia E78.5 Active 41157030 Problem Type 2 diabetes mellitus wit h other specified complication, without long-term current use of insulin E11.69 Active 56873224 Problem Chronic airway obstruction, 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 Active 18457836 Problem CAD (coronary artery disease) I25.10 Active [id number] ALLERGIES No Information ENCOUNTERS Encounter Location Date Diagnosis [place] [id number] [place] [address] S [id number] Apr, [place] [id number] [place] [address] S [id number] Dec, Type 2 diabetes mellitus with other spec ified complication, without long-term current use of insulin E11.69 ; Chronic airway obstruction, 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 ; CAD (coronary artery disease) I25.10 and Deformity of toe of left foot M20.[address] [place] [address], S [id number] Aug, Bilateral impacted cerumen H61.23 [place] [id number] [place] [address], S [id number] Aug, Bilateral impacted cerumen H61.23 ; CAD (coronary artery disease) I25.10 and Other and unspecified hyperlipidemia E78.[id number] [place] [address], S [id number] Jun, Encounter for Medicare annual wellness e xam Z00.00 ; Type 2 diabetes mellitus with other specified complication, without long-term current use of insulin E11.69 ; Chronic airway obstruction, 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 ; CAD (coronary artery disease) I25.10 ; Other and unspecified hyperlipidemia E78.5 and Breast cancer screening Z12.31 [facility] [address] [id number] [place] [id number] 11 Jun, 2018 DM w/o complication type II E11.9 ; Yarn Man 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, 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 ; CAD (coronary artery disease) I25.10 and Vertigo R42 [facility] [address] [id number] [place] [id number] Feb, Encounter for immunization Z23 [facility] [place] [address] [id number] [place] [id number] Jan, DM w/o complication type II E11.9 and Ch ronic airway obstruction, 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 [facility] [address] [id number] [place] [id number] Dec, CAD (coronary artery disease) I25.10 [facility] [address] [id number] [place] [id number] Oct, DM w/o complication type II E11.9 ; Yarn Man 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, 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 and CAD (coronary artery disease) I25.10 [facility] [address] [id number] [place] [id number] Jul, DM w/o complication type II E11.9 ; Yarn Man 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, 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 [address] [id number] [place] [id number] Jun, Syncope and collapse R55 [facility] [place] [address] [id number] [place] [id number] Jun, [facility] [place] [address] [id number] [place] [id number] May, Bronchitis J40 [facility] [place] [address] [id number] [place] [id number] May, [facility] [address] [id number] [place] [id number] May, [facility] [place] [address] [id number] [place] [id number] Apr, DM w/o complication type II E11.9 [facility] [place] [address] [id number] [place] [id number] Mar, DM w/o complication type II E11.9 ; Yarn Man 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, 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 ; Dysuria R30.0 ; Tinea pedis of right foot B35.3 and Encounter for immunization Z23 [facility] [place] [address] [id number] [place] [id number] Feb, Medicare welcome exam Z00.00 [facility] [place] [address] [id number] [place] [id number] Jan, Chronic airway obstruction, not elsewher e classified J44.9 [facility] [place] [address] [id number] [place] [id number] Dec, [facility] [place] [address] [id number] [place] [id number] Dec, DM w/o complication type II E11.9 ; Yarn Man 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, 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 and Acute cystitis with hematuria N30.01 [facility] [place] [address] [id number] [place] [id number] Oct, Encounter for screening for malignant ne oplasm of colon Z12.11 [facility] [place] [address] [id number] [place] [id number] Oct, Medicare welcome exam Z00.00 [facility] [place] [address] [id number] [place] [id number] September, Medicare welcome exam Z00.00 and Encount er for immunization Z23 [facility] [place] [address] [id number] [place] [id number] September, Bronchitis J40 [facility] [place] [address] [id number] [place] [id number] September, Bronchitis J40 [facility] [place] [address] [id number] [place] [id number] September, Other and unspecified hyperlipidemia E78 .5 [facility] [place] [address] [id number] [place] [id number] Aug, DM w/o complication type II E11.9 ; Yarn Man 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, 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 and Other and unspecified hyperlipidemia E78.5 [facility] [place] [address] [id number] [place] [id number] May, DM w/o complication type II E11.9 and Ch ronic airway obstruction, 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 [facility] [place] [address] [id number] [place] [id number] Apr, Acute cystitis with hematuria N30.01 [facility] [place] [address] [id number] [place] [id number] Feb, DM w/o complication type II E11.9 [facility] [place] [address] [id number] [place] [id number] Feb, Chronic airway obstruction, not elsewher e classified J44.9 ; DM w/o complication type II E11.9 and Encounter for immunization Z23 [facility] [place] [address] [id number] [place] [id number] Dec, [facility] [place] [address] [id number] [place] [id number] Nov, Chronic airway obstruction, not elsewher e classified J44.9 [facility] [place] [address] [id number] [place] [id number] Oct, DM w/o complication type II E11.9 [facility] [address] [id number] [address] [address] Oct, [facility] [place] [address] [id number] [place] [id number] Aug, Chronic airway obstruction, not elsewher e classified J44.9 and DM w/o complication type II E11.9 [facility] [place] [address] [id number] [place] [id number] Aug, Chronic airway obstruction, not elsewher e classified J44.9 [facility] [place] [address] [id number] [place] [id number] Aug, DM w/o complication type II E11.9 and Ch ronic airway obstruction, 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 [facility] [place] [address] [id number] [place] [id number] Jul, [facility] [place] [address] [id number] [place] [id number] Jul, DM w/o complication type II E11.9 [facility] [place] [address] [id number] [place] [id number] Jun, [facility] [place] [address] [id number] [place] [id number] Jun, [facility] [place] [address] [id number] [place] [id number] Jun, Chronic airway obstruction, not elsewher e classified J44.9 ; DM w/o complication type II E11.9 and Other and unspecified hyperlipidemia E78.5 [facility] [place] [address] [id number] [place] [id number] Jun, CAD (coronary artery disease) I25.10 and Dizziness R42 [facility] [place] [address] [id number] [place] [id number] Jun, Bronchitis J40 [facility] [place] [address] [id number] [place] [id number] May, Hematoma T14.8 [facility] [place] [address] [id number] [place] [id number] May, [facility] [place] [address] [id number] [place] [id number] May, Bronchitis J40 [facility] [place] [address] [id number] [place] [id number] Apr, Bronchitis J40 [facility] [address] [facility] [id number] [address] [place] [address] Apr, [facility] [place] [address] [id number] [place] [id number] Mar, [facility] [address] [facility] [address] [id number][place] [id number] Mar, [facility] [place] [address] [id number] [place] [id number] Mar, [facility] Driscoll[address] [facility] [address] [id number][place] [id number] Mar, [facility] [place] [address] [id number] [place] [id number] Mar, SOB (shortness of breath) R06.02 [facility] [place] [address] [id number] [place] [id number] Feb, Urinary tract infection, site not specif ied N39.0 and Hematuria, unspecified R31.9 [facility] [place] [address] [id number] [place] [id number] Feb, DM w/o complication type II E11.9 ; Enco unter for immunization Z23 and Chronic airway obstruction, 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 [facility] [id number] [id number] Jan, [facility] [id number] [id number] Jan, [facility] [place] [address] [id number] [place] [id number] Dec, [facility] [place] [address] [id number] [place] [id number] Dec, [facility] [place] [address] [id number] [place] [id number] Dec, [facility] [place] [address] [id number] [place] [id number] Dec, [facility] [place] [address] [id number] [place] [id number] Dec, Blood in the stool 578.1 [facility] [place] [address] [id number] [place] [id number] Nov, [facility] [place] [address] [id number] [place] [id number] Nov, Colon cancer screening V76.51 [facility] [place] [address] [id number] [place] [id number] Nov, Vertigo 780.4 [facility] [place] [address] [id number] [place] S [id number] Nov, Routine gynecological examination V72.31 ; Pap test, as part of routine gynecological examination V76.2 ; Breast cancer screening V76.10 ; Postmenopausal V49.81 and Colon cancer screening V76.51 [facility] [address] [id number] [place] [id number] Nov, [facility] [address] [id number] [place] [id number] Nov, [facility] [address] [place] [address] [id number] [address] [place] [address] Nov, [facility] [address] [facility] [id number] [place] [id number] Oct, Diabetes 250.00 ; COPD (chronic obstruct misha pulmonary disease) 496 and GERD (gastroesophageal reflux disease) 530.81 [facility] [address] [facility] [id number] [address] [place] [phone] Oct, [facility] [address] [id number] [place] [id number] Oct, [facility] [address] [facility] [id number] [place] [id number] Oct, [facility] [address] [id number] [place] [id number] Oct, Reflux 530.81 [facility] [address] [facility] [id number] [address] [place] [phone] Oct, [facility] [address] [id number] [place] [id number] Oct, [facility] [address] [id number] [place] [id number] Oct, [facility] [address] [id number] [place] [id number] Oct, Dysuria 788.1 [facility] [place] [address] [id number] [place] [id number] Oct, Dysuria 788.1 [facility] [address] [facility] [id number] [address] [place] [id number] September, [facility] [place] [address] [facility] [id number] [place] [id number] September, Diabetes 250.00 and COPD (chronic obstru ctive pulmonary disease) 496 [facility] [place] [address] [facility] [id number] [place] [id number] September, [facility] [place] [address] [facility] [id number] [place] [id number] September, [facility] [address] [id number][place] [id number] September, [facility] [place] [address] [facility] [id number] [place] [id number] Aug, Osteoarthritis 715.90 ; Diabetes 250.00 and COPD (chronic obstructive pulmonary disease) 496 [facility] [place] [address] [facility] [id number] [place] [id number] Aug, Pure hypercholesterolemia 272.0 ; Essent ial hypertension, benign 401.1 and Loss of weight 783.21 [facility] [address] [id number] [address] [place] [id number] Aug, [facility] [address] [id number] [address] [place] [phone] Aug, [facility] [address] [facility] [id number] [place] [id number] Jul, [facility] [address] [facility] [id number] [address] [place] [id number] Jul, [facility] [address] [id number] [address] [place] [phone] Jun, [facility] [address] [id number] [address] [place] [phone] Jun, [facility] [address] [id number] [place] [id number] Jun, [facility] [address] [id number] [facility] [place] [address] May, [facility] [place] [address] [id number] [place] [id number] May, [facility] [place] [address] [id number] [place] [id number] Apr, [facility] [address] [id number] [facility] [place] [address] Apr, [facility] [place] [address] [id number] [place] [id number] Apr, [facility] [address] [id number] [address] [place] [address], [place] [address] Apr, [facility] [place] [address] [id number] [place] [id number] Apr, [facility] [address] [facility] [id number] [address] [place] [address], [place] [address] Apr, [facility] [place] [address] [id number] [place] [id number] Feb, [facility] [address] [id number] [address] [place] [id number] Feb, [facility] [place] [address] [id number] [place] [id number] Feb, [facility] [address] [facility] [id number] [address] [place] [phone] Feb, [facility] [address] [id number] [address] [place] [phone] Jan, [facility] [place] [address] [id number] [place] [id number] Jan, [facility] [address] [id number] [address] [place] [phone] Jan, [facility] [place] [address] [id number] [place] [id number] Jan, [facility] [address] [id number] [address] [place] [address], [place] [address] Jan, [facility] [address] [id number] [address] [place] [address], [place] [address] Dec, [facility] [address] [id number] [address] [place] [address], [place] [address] Dec, [facility] [place] [address] [id number] [place] [id number] September, [facility] [address] [id number] [address] [place] [address], [place] [address] September, [facility] [address] [id number] [address] [place] [address], [place] [address] September, [facility] [place] [address] [id number] [place] [id number] September, [facility] [place] [address] [id number] [place] [id number] September, [facility] [address] [id number] [address] [place] [address], [place] [address] September, [facility] [place] [address] [id number] [place] [id number] Aug, [facility] [address] [id number] [address] [place] [address], [place] [address] Aug, [facility] [address] [id number] [address] [place] [address], [place] [address] Jul, [facility] [place] [address] [id number] [place] [id number] Jul, [facility] [address] [id number] [address] [place] [address], [place] [address] Jul, [facility] [place] [address] [id number] [place] [id number] Jun, [facility] [address] [id number] [address] [place] [address], [place] [address] Jun, [facility] [address] [id number] [address] [place] [address], [place] [address] Jun, [facility] [place] [address] [id number] [place] [id number] Jun, [facility] [place] [address] [id number] [place] [id number] May, [facility] [address] [id number] [address] [place] [address], [place] [address] May, [facility] [address] [id number] [address] [place] [address], [place] [address] Apr, [facility] [place] [address] [id number] [place] [id number] Mar, [facility] [address] [id number] [address] [place] [address], [place] [address] Mar, [facility] [address] [id number] [address] [place] [address], [place] [address] Mar, [facility] [address] [facility] [id number] [address] [place] [id number] Mar, [facility] [place] [address] [id number] [place] [id number] Mar, [facility] [place] [address] [id number] [place] [id number] Feb, [facility] [address] [id number] [address] [place] [phone] Feb, [facility] [place] [address] [id number] [place] [id number] Feb, [facility] [address] [id number] [address] [place] [address], [place] [address] Feb, [facility] [place] [address] [id number] [place] [id number] Feb, [facility] [address] [id number] [address] [place] [address], [place] [address] Feb, [facility] [place] [address] [id number] [place] [id number] Jan, [facility] [place] [address] [id number] [place] [id number] Dec, [facility] [place] [address] [id number] [place] [id number] Nov, [facility] [place] [address] [id number] [place] [id number] Oct, [facility] [place] [address] [id number] [place] [id number] Oct, [facility] [place] [address] [id number] [place] [id number] Oct, [facility] [place] [address] [id number] [place] [id number] Oct, [facility] [address] [facility] [id number] [address] [place] [phone] September, [facility] [place] [address] [id number] [place] [id number] September, [facility] [address] [facility] [id number] [address] [place] [phone] Aug, [facility] [place] [address] [id number] [place] [id number] Aug, [facility] [place] [address] [id number] [place] [id number] Jun, [facility] [place] [address] [id number] [place] [id number] Jun, [facility] [place] [address] [id number] [place] [id number] Feb, [facility] [address] [facility] [id number] [address] [place] [phone] Feb, [facility] [place] [address] [id number] [place] [id number] Feb, [facility] [place] [address] [id number] [place] [id number] Dec, [facility] [address] [facility] [id number] [address] [place] [id number] Dec, [facility] [place] [address] [id number] [place] [id number] Dec, [facility] [address] [facility] [id number] [place] [id number] Aug, [facility] [address] [facility] [id number] [place] [id number] May, [facility] [address] [facility] [id number] [place] [id number] May, [facility] [address] [facility] [id number] [address] [place] [id number] Apr, [facility] [address] [facility] [id number] [address] [place] [id number] September, [facility] [address] [facility] [id number] [address] [place] [phone] Apr, [facility] [address] [id number] [address] [place] [phone] Apr, [facility] [id number] [place] [id number] Apr, IMMUNIZATIONS No Known Immunizations SOCIAL HISTORY [...]
--- OUTSIDE RECORDS SUMMARY | 2019-07-19 23:14 | XMS REPORT ---
Author Author Zoie DISLA Organization [facility] Address [address] [place] [address] Care Team Providers Care Game Programer Name Role Phone ELLEN DISLA Unavailable PROBLEMS Type Condition ICD9-CM Code YBK86-XV Code Onset Dates Condition S tatus SNOMED Code Problem Other and unspecified hyperlipidemia E78.5 Active 50832328 Problem Type 2 diabetes mellitus wit h other specified complication, without long-term current use of insulin E11.69 Active 11551290 Problem Chronic airway obstruction, 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 Active 05503475 Problem CAD (coronary artery disease) I25.10 Active 20443588 ALLERGIES No Information ENCOUNTERS Encounter Location Date Diagnosis [place] [id number] [place] [address] S [id number] Apr, [place] [id number] [place] [address] S [id number] Dec, Type 2 diabetes mellitus with other spec ified complication, without long-term current use of insulin E11.69 ; Chronic airway obstruction, 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 ; CAD (coronary artery disease) I25.10 and Deformity of toe of left foot M20.[id number] [place] [address], S [id number] Aug, Bilateral impacted cerumen H61.23 [place] [id number] [place] [address], S [id number] Aug, Bilateral impacted cerumen H61.23 ; CAD (coronary artery disease) I25.10 and Other and unspecified hyperlipidemia E78.[address] [place] [address], S [id number] Jun, Encounter for Medicare annual wellness e xam Z00.00 ; Type 2 diabetes mellitus with other specified complication, without long-term current use of insulin E11.69 ; Chronic airway obstruction, 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 ; CAD (coronary artery disease) I25.10 ; Other and unspecified hyperlipidemia E78.5 and Breast cancer screening Z12.31 [facility] [address] [id number] [place] [id number] Jun, 2018 DM w/o complication type II E11.9 ; 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, 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 ; CAD (coronary artery disease) I25.10 and Vertigo R42 [facility] [address] [id number] [place] [id number] Feb, Encounter for immunization Z23 [facility] [address] [id number] [place] [id number] Jan, DM w/o complication type II E11.9 and Ch ronic airway obstruction, 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 [facility] [address] [id number] [place] [id number] Dec, CAD (coronary artery disease) I25.10 [facility] [address] [id number] [place] [id number] Oct, DM w/o complication type II E11.9 ; 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, 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 and CAD (coronary artery disease) I25.10 [facility] [address] [id number] [place] [id number] Jul, DM w/o complication type II E11.9 ; 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, 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 and Infective urethritis N34.2 [facility] [address] [id number] [place] [id number] Jun, Syncope and collapse R55 [facility] [address] [id number] [place] [id number] Jun, [facility] [address] [id number] [place] [id number] May, Bronchitis J40 [facility] [address] [id number] [place] [id number] May, [facility] [address] [id number] [place] [id number] May, [facility] [place] [address] [id number] [place] [id number] Apr, DM w/o complication type II E11.9 [facility] [place] [address] [id number] [place] [id number] Mar, DM w/o complication type II E11.9 ; 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, 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 ; Dysuria R30.0 ; Tinea pedis of right foot B35.3 and Encounter for immunization Z23 [facility] [place] [address] [id number] [place] [id number] Feb, Medicare welcome exam Z00.00 [facility] [place] [address] [id number] [place] [id number] Jan, Chronic airway obstruction, not elsewher e classified J44.9 [facility] [place] [address] [id number] [place] [id number] Dec, [facility] [place] [address] [id number] [place] [id number] Dec, DM w/o complication type II E11.9 ; 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, 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 and Acute cystitis with hematuria N30.01 [facility] [place] [address] [id number] [place] [id number] Oct, Encounter for screening for malignant ne oplasm of colon Z12.11 [facility] [place] [address] [id number] [place] [id number] Oct, Medicare welcome exam Z00.00 [facility] [place] [address] [id number] [place] [id number] September, Medicare welcome exam Z00.00 and Encount er for immunization Z23 [facility] [place] [address] [id number] [place] [id number] September, Bronchitis J40 [facility] [place] [address] [id number] [place] [id number] September, Bronchitis J40 [facility] [place] [address] [id number] [place] [id number] September, Other and unspecified hyperlipidemia E78 .5 [facility] [place] [address] [id number] [place] [id number] Aug, DM w/o complication type II E11.9 ; 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, 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 and Other and unspecified hyperlipidemia E78.5 [facility] [place] [address] [id number] [place] [id number] May, DM w/o complication type II E11.9 and Ch ronic airway obstruction, 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 [facility] [place] [address] [id number] [place] [id number] Apr, Acute cystitis with hematuria N30.01 [facility] [place] [address] [id number] [place] [id number] Feb, DM w/o complication type II E11.9 [facility] [place] [address] [id number] [place] [id number] Feb, Chronic airway obstruction, not elsewher e classified J44.9 ; DM w/o complication type II E11.9 and Encounter for immunization Z23 [facility] [place] [address] [id number] [place] [id number] Dec, [facility] [place] [address] [id number] [place] [id number] Nov, Chronic airway obstruction, not elsewher e classified J44.9 [facility] [place] [address] [id number] [place] [id number] Oct, DM w/o complication type II E11.9 [facility] [address] [id number] [address] [place] [address] Oct, [facility] [place] [address] [id number] [place] [id number] Aug, Chronic airway obstruction, not elsewher e classified J44.9 and DM w/o complication type II E11.9 [facility] [place] [address] [id number] [place] S [id number] Aug, Chronic airway obstruction, not elsewher e classified J44.9 [facility] [place] [address] [id number] [place] [id number] Aug, DM w/o complication type II E11.9 and Ch ronic airway obstruction, 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 [facility] [place] [address] [id number] [place] [id number] Jul, [facility] [place] [address] [id number] [place] [id number] Jul, DM w/o complication type II E11.9 [facility] [place] [address] [id number] [place] [id number] Jun, [facility] [place] [address] [id number] [place] [id number] Jun, [facility] [place] [address] [id number] [place] [id number] Jun, Chronic airway obstruction, not elsewher e classified J44.9 ; DM w/o complication type II E11.9 and Other and unspecified hyperlipidemia E78.5 [facility] [place] [address] [id number] [place] [id number] Jun, CAD (coronary artery disease) I25.10 and Dizziness R42 [facility] [place] [address] [id number] [place] [id number] Jun, Bronchitis J40 [facility] [place] [address] [id number] [place] S [id number] May, Hematoma T14.8 [facility] [place] [address] [id number] [place] [id number] May, [facility] [place] [address] [id number] [place] [id number] May, Bronchitis J40 [facility] [place] [address] [id number] [place] [id number] Apr, Bronchitis J40 [facility] [address] [facility] [id number] [address] [place] [address] Apr, [facility] [place] [address] [id number] [place] [id number] Mar, [facility] [address] [facility] [address] [id number] [id number] Mar, [facility] [place] [address] [id number] [place] [id number] Mar, [facility] [address] [facility] [address] [id number] [place] [id number] Mar, [facility] [place] [address] [id number] [place] [id number] Mar, SOB (shortness of breath) R06.02 [facility] [address] [id number] [place] [id number] Feb, Urinary tract infection, site not specif ied N39.0 and Hematuria, unspecified R31.9 [facility] [address] [id number] [place] [id number] Feb, DM w/o complication type II E11.9 ; Enco unter for immunization Z23 and Chronic airway obstruction, 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 [facility] [id number] [id number] Jan, [facility] [address] [id number] [id number] Jan, [facility] [address] [id number] [place] [id number] Dec, [facility] [address] [id number] [place] [id number] Dec, [facility] [address] [id number] [place] [id number] Dec, [facility] [address] [id number] [place] [id number] Dec, [facility] [address] [id number] [place] [id number] Dec, Blood in the stool 578.1 [facility] [address] [id number] [place] [id number] Nov, [facility] [address] [id number] [place] [id number] Nov, Colon cancer screening V76.51 [facility] [address] [id number] [place] S [id number] Nov, Vertigo 780.4 [facility] [place] [address] [id number] [place] S [id number] Nov, Routine gynecological examination V72.31 ; Pap test, as part of routine gynecological examination V76.2 ; Breast cancer screening V76.10 ; Postmenopausal V49.81 and Colon cancer screening V76.51 [facility] [address] [id number] [place] S [id number] Nov, [facility] [address] [id number] [place] [id number] Nov, [facility] [address] [place] [id number] [address] [place] [address] Nov, [facility] [address] [facility] [id number] [place] [id number] Oct, Diabetes 250.00 ; COPD (chronic obstruct misha pulmonary disease) 496 and GERD (gastroesophageal reflux disease) 530.81 [facility] [address] [facility] [id number] [address] [place] [address] Oct, [facility] [address] [id number] [place] [id number] Oct, [facility] [address] [facility] [id number] [place] [id number] Oct, [facility] [address] [id number] [place] [id number] Oct, Reflux 530.81 [facility] [address] [facility] [id number] [address] [place] [address] Oct, [facility] [address] [id number] [place] [id number] Oct, [facility] [address] [id number] [place] [id number] Oct, [facility] [address] [id number] [place] [id number] Oct, Dysuria 788.1 [facility] [address] [id number] [place] [id number] Oct, Dysuria 788.1 [facility] [address] [facility] [id number] [address] [place] [address] September, [facility] [address] [facility] [id number] [place] [id number] September, Diabetes 250.00 and COPD (chronic obstru ctive pulmonary disease) 496 [facility] [address] [facility] [id number] [place] [id number] September, [facility] [address] [facility] [id number] [place] [id number] September, [facility] [address] [id number] [place] [id number] September, [facility] [address] [facility] [id number] [place] [id number] Aug, Osteoarthritis 715.90 ; Diabetes 250.00 and COPD (chronic obstructive pulmonary disease) 496 [facility] [address] [facility] [id number] [place] [id number] Aug, Pure hypercholesterolemia 272.0 ; Essent ial hypertension, benign 401.1 and Loss of weight 783.21 [facility] [address] [place] [id number] [address] [place] [address] Aug, [facility] [address] [place] [place] [id number] [address] [place] [address] Aug, [facility] [address] [facility] [id number] [place] [id number] Jul, [facility] [address] [facility] [id number] [address] [place] [phone] Jul, [facility] [address] [place] [id number] [address] [place] [phone] Jun, [facility] [address] [id number] [address] [place] [address] Jun, [facility] [address] [place] [id number] [place] [id number] Jun, [facility] [address] [id number] [facility] [place] [address] May, [facility] [place] [address] [id number] [place] [id number] May, [facility] [place] [address] [id number] [place] [id number] Apr, [facility] [address] [id number] [facility] [place] [address] Apr, [facility] [place] [address] [id number] [place] [id number] Apr, [facility] [address] [id number] [address] [place] [address], [place] [address] Apr, [facility] [place] [address] [id number] [facility] [place] [facility] [id number] Apr, [facility] [address] [facility] [id number] [address] [place] [address], [place] [address] Apr, [facility] [place] [address] [id number] [place] [id number] Feb, [facility] [address] [id number] [address] [place] [address] Feb, [facility] [place] [address] [id number] [place] [id number] Feb, [facility] [address] [facility] [id number] [address] [place] [address] Feb, [facility] [address] [id number] [address] [place] [address] Jan, [facility] [place] [address] [id number] [place] [id number] Jan, [facility] [address] [id number] [address] [place] [address] Jan, [facility] [place] [address] [id number] [place] [id number] Jan, [facility] [address] [id number] [address] [place] [address], [place] [address] Jan, [facility] [address] [id number] [address] [place] [address], [place] [address] Dec, [facility] [address] [id number] [address] [place] [address], [place] [address] Dec, [facility] [place] [address] [id number] [place] [id number] September, [facility] [address] [id number] [address] [place] [address], [place] [address] September, [facility] [address] [id number] [address] [place] [address], [place] [address] September, [facility] [place] [address] [id number] [place] [id number] September, [facility] [place] [address] [id number] [place] [id number] September, [facility] [address] [id number] [address] [place] [address], [place] [address] September, [facility] [place] [address] [id number] [place] [id number] Aug, [facility] [address] [id number] [address] [place] [address], [place] [address] Aug, [facility] [address] [id number] [address] [place] [address], [place] [address] Jul, [facility] [place] [address] [id number] [place] [id number] Jul, [facility] [address] [id number] [address] [place] [address], [place] [address] Jul, [facility] [place] [address] [id number] [place] [id number] Jun, [facility] [address] [id number] [address] [place] [address], [place] [address] Jun, [facility] [address] [id number] [address] [place] [address], [place] [address] Jun, [facility] [place] [address] [id number] [place] [id number] Jun, [facility] [place] [address] [id number] [place] [id number] May, [facility] [address] [id number] [address] [place] [address], [place] [address] May, [facility] [address] [id number] [address] [place] [address], [place] [address] Apr, [facility] [place] [address] [id number] [place] [id number] Mar, [facility] [address] [id number] [address] [place] [address], [place] [address] Mar, [facility] [address] [id number] [address] [place] [address], [place] [address] Mar, [facility] [address] [facility] [id number] [address] [place] [address] Mar, [facility] [place] [address] [id number] [place] S [id number] Mar, [facility] [place] [address] [id number] [place] [id number] Feb, [facility] [address] [id number] [address] [place] [address] Feb, [facility] [place] [address] [id number] [place] [id number] Feb, [facility] [address] [id number] [address] [place] [address], [place] [address] Feb, [facility] [place] [address] [id number] [place] S [id number] Feb, [facility] [address] [id number] [address] [place] [address], [place] [address] Feb, [facility] [place] [address] [id number] [place] [id number] Jan, [facility] [place] [address] [id number] [place] [id number] Dec, [facility] [place] [address] [id number] [place] [id number] Nov, [facility] [place] [address] [id number] [place] [id number] Oct, [facility] [place] [address] [id number] [place] [id number] Oct, [facility] [place] [address] [id number] [place] [id number] Oct, [facility] [address] [id number] [place] [id number] Oct, [facility] [address] [facility] [id number] [address] [place] [address] September, [facility] [place] [address] [id number] [place] [id number] September, [facility] [address] [facility] [id number] [address] [place] [address] Aug, [facility] [place] [address] [id number] [place] [id number] Aug, [facility] [address] [id number] [place] [id number] Jun, [facility] [address] [id number] [place] [id number] Jun, [facility] [address] [id number] [place] [id number] Feb, [facility] [address] [facility] [id number] [address] [place] [address] Feb, [facility] [place] [address] [id number] [place] [id number] Feb, [facility] [address] [id number] [place] [id number] Dec, [facility] [address] [facility] [id number] [address] [place] [address] Dec, [facility] [address] [id number] [place] [id number] Dec, [facility] [address] [id number] [place], [place] S [id number] Aug, [facility] [address] [id number] [place], [place] S [id number] May, [facility] [address] [id number] [place], [place] S [id number] May, [facility] [address] [facility] [id number] [address] [place] [address] Apr, [facility] [address] [facility] [id number] [address] [place] [phone] September, [facility] [address] [facility] [id number] [address] [place] [address] Apr, [facility] [address] [facility] [id number] [address] [place] [phone] Apr, [facility] [address] [facility] [id number] [address] [place] [address] Apr, IMMUNIZATIONS No Known Immunizations SOCIAL HISTORY Never Assessed REASON FOR VISIT PLAN OF CARE VITAL SIGNS Height 66 in 2013-10-06 Weight 149 lbs 2013-10-06 Temperature 97.9 degrees Fahrenheit 2013-10-06 Heart Rate 84 bpm 2013-10-06 Respiratory Rate 16 2013-10-06 Blood pressure systolic 118 mmHg 2013-10-06 Blood pressure diastolic 72 mmHg 2013-10-06 MEDICATIONS Unknown Medications RESULTS No Results PROCEDURES [...]
--- OUTSIDE RECORDS SUMMARY | 2019-07-19 23:14 | XMS REPORT ---
Author Author Zoie DISLA Organization [address] Address [address] [place] [address] Care Team Providers Care Enchilada Maker Name Role Phone DISLAELLEN Conrad Unavailable PROBLEMS Type Condition ICD9-CM Code SWV03-JG Code Onset Dates Condition S tatus SNOMED Code Problem Other and unspecified hyperlipidemia E78.5 Active 83991615 Problem Type 2 diabetes mellitus wit h other specified complication, without long-term current use of insulin E11.69 Active 29478284 Problem Chronic airway obstruction, 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 Active 15512404 Problem CAD (coronary artery disease) I25.10 Active 61623264 ALLERGIES No Information ENCOUNTERS Encounter Location Date Diagnosis [address] [place] [address] 0 5 Jul, 2019 [facility] [id number] [place] [address] [id number] Apr, Type 2 diabetes mellitus with other specified complication, without long-term current use of insulin E11.69 ; Chronic airway obstruction, 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 and Acute nasopharyngitis 00 [facility] [id number] [place] [address] [id number] Mar, Acute nasopharyngitis J00 [facility] [address] [id number] Mar, [facility] [address] [id number] Mar, Acute nasopharyngitis J00 [facility] [address] [id number] Mar, Encounter for immunization Z23 [facility] [address] [facility] [place] [address] Feb, Type 2 diabetes mellitus with other spec ified complication, without long-term current use of insulin E11.[address] [id number] Dec, Type 2 diabetes mellitus with other specified complication, without long-term current use of insulin E11.69 ; Chronic airway obstruction, 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 ; CAD (coronary artery disease) I25.10 and Deformity of toe of left foot M20.[address] [id number] Aug, Bilateral impacted cerumen H61.[address] [id number] Aug, Bilateral impacted cerumen H61.23 ; CAD (coronary artery disease) I25.10 and Other and unspecified hyperlipidemia E78.[address] [id number] Jun, Encounter for Medicare annual wellness exam Z00.00 ; Type 2 diabetes mellitus with other specified complication, without long-term current use of insulin E11.69 ; Chronic airway obstruction, 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 ; CAD (coronary artery disease) I25.10 ; Other and unspecified hyperlipidemia E78.5 and Breast cancer screening Z12.[address] [id number] 11 Jun, 2018 DM w/o complication type II E11.9 ; Chronic airway obstruction, 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 ; CAD (coronary artery disease) I25.10 and Vertigo R42 [address] [id number] Feb, Encounter for immunization Z23 [address] [id number] Jan, DM w/o complication type II E11.9 and Chronic airway obstruction, 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 [id number] Dec, CAD (coronary artery disease) I25.[address] [id number] Oct, DM w/o complication type II E11.9 ; Chronic airway obstruction, 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 and CAD (coronary artery disease) I25.[address] [id number] Jul, DM w/o complication type II E11.9 ; Chronic airway obstruction, 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 and Infective urethritis N34.[address] [id number] 05 Jun, 2017 Syncope and collapse R55 [address] [id number] 02 Jun, [address] [id number] May, Bronchitis J40 [address] [id number] May, [address] [id number] May, [address] [id number] Apr, DM w/o complication type II E11.[address] [id number] Mar, DM w/o complication type II E11.9 ; Chronic airway obstruction, 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 ; Dysuria R30.0 ; Tinea pedis of right foot B35.3 and Encounter for immunization Z23 [address] [id number] 04 Feb, 2017 Medicare welcome exam Z00.[address] [id number] Jan, Chronic airway obstruction, 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 [id number] Dec, [address] [id number] Dec, DM w/o complication type II E11.9 ; Chronic airway obstruction, 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 and Acute cystitis with hematuria N30.[address] [id number] Oct, Encounter for screening for malignant neoplasm of colon Z12.11 [id number] [place] [address] [id number] Oct, Medicare welcome exam Z00.[address] [id number] September, Medicare welcome exam Z00.00 and Encounter for immunization Z23 [address] [id number] September, Bronchitis J40 [address] [id number] September, Bronchitis J40 [address] [id number] September, Other and unspecified hyperlipidemia E78.[address] [id number] Aug, DM w/o complication type II E11.9 ; Chronic airway obstruction, 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 and Other and unspecified hyperlipidemia E78.[address] [id number] May, DM w/o complication type II E11.9 and Chronic airway obstruction, 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 [id number] Apr, Acute cystitis with hematuria N30.[address] [id number] Feb, DM w/o complication type II E11.[address] [id number] Feb, Chronic airway obstruction, 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 ; DM w/o complication type II E11.9 and Encounter for immunization Z23 [address] [id number] Dec, [address] [id number] Nov, Chronic airway obstruction, 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 [id number] Oct, DM w/o complication type II E11.9 [facility] [address] [facility] [place] [address] Oct, [address] [id number] Aug, Chronic airway obstruction, 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 and DM w/o complication type II E11.[address] [id number] Aug, Chronic airway obstruction, 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 [id number] Aug, DM w/o complication type II E11.9 and Chronic airway obstruction, 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 [id number] Jul, [address] [id number] Jul, DM w/o complication type II E11.[address] [id number] Jun, [address] [id number] Jun, [address] [id number] Jun, Chronic airway obstruction, 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 ; DM w/o complication type II E11.9 and Other and unspecified hyperlipidemia E78.[address] [id number] 11 Jun, 2015 CAD (coronary artery disease) I25.10 and Dizziness R42 [address] [id number] 10 Jun, 2015 [address]itis J40 [address] [id number] 14 May, 2015 Hematoma T14.[address] [id number] May, [address] [id number] May, Bronchitis J40 [address] [place] [id number] Apr, Bronchitis J40 [facility] [address] [facility] [place] [address] Apr, [address] [id number] Mar, [facility] [id number] [id number] Mar, [address] [id number] Mar, [facility] [address] [id number] [id number] Mar, [address] [id number] Mar, SOB (shortness of breath) R06.[address] [id number] Feb, Urinary tract infection, site not specified N39.0 and Hematuria, unspecified R31.[address] [id number] Feb, DM w/o complication type II E11.9 ; Encounter for immunization Z23 and Chronic airway obstruction, 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 [id number] [id number] Jan, [id number] [id number] Jan, [id number] [place] [address] [id number] Dec, [address] [id number] Dec, [address] [id number] Dec, [address] [id number] Dec, [address] [id number] Dec, Blood in the stool 578.1 [facility] [id number] [place] [id number] Nov, [address] [id number] Nov, Colon cancer screening V76.51 [id number] [place] [address] [id number] Nov, Vertigo 780.[address] [id number] Nov, Routine gynecological examination V72.31 ; Pap test, as part of routine gynecological examination V76.2 ; Breast cancer screening V76.10 ; Postmenopausal V49.81 and Colon cancer screening V76.[address] [id number] Nov, [address] [id number] Nov, [address] [address] Nov, [address] [id number] Oct, Diabetes 250.00 ; COPD (chronic obstructive pulmonary disease) 496 and GERD (gastroesophageal reflux disease) 530.[id number] [place] [address] Oct, [id number] [place] [address] [id number] Oct[address] [id number] Oct, [address] [id number] Oct, Reflux 530.81 [facility] [address] [address] Oct, [address] [id number] Oct, [address] [id number] Oct, [address] [id number] Oct, Dysuria 788.1 [facility] [address] [address] Oct, Dysuria 788.1 [facility] [address] [place] [address] September, [facility] [address] [address] September, Diabetes 250.00 and COPD (chronic obstructive pulmonary disease) [address] [place] [address] [id number] September, [facility] [id number] [place] [address] [id number] September, [facility] [address] [facility] [id number] September, [facility] [address] [address] Aug, Osteoarthritis 715.90 ; Diabetes 250.00 and COPD (chronic obstructive pulmonary disease) [address] [facility] [address] [id number] Aug, Pure hypercholesterolemia 272.0 ; Essential hypertension, benign 401.1 and Loss of weight 783.21 [facility] [address] [place] [address] Aug, [facility] [address] [address] Aug, [facility] [place] [id number] [place] [address] [id number] Jul, [facility] [address] [address] Jul, [facility] [address] [address] Jun, [facility] [address] [address] Jun, [facility] [address] [id number] [place] [address] [id number] Jun, [facility] [address] [facility] [place] [address] May, [facility] [address] [id number] May, [facility] [address] [id number] Apr, [facility] [place] [facility] [id number] [place] [address] Apr, [facility] [place] [address] [id number] Apr, [facility] [id number] [place] [address] Apr, [facility] [place] [address] [id number] Apr, [facility] [place] [facility] [id number] [place] [address] Apr, [facility] [id number] [place] [address] [id number] Feb, [facility] [place] [facility] [id number] [place] [address] Feb, [facility] [address] [id number] Feb, [facility] [place] [facility] [id number] [place] [address] Feb, [facility] [place] [facility] [id number] [place] [address] Jan, [facility] [place] [address] [id number] Jan, [facility] [place] [facility] [id number] [place] [address] Jan, [facility] [place] [address] [id number] Jan, [facility] [place] [id number] [place] [address] Jan, [facility] [place] [facility] [id number] [place] [address] Dec, [facility] [address] [facility] [place] [address] Dec, [facility] [place] [id number] [id number] September, [facility] [place] [facility] [id number] [place] [address] September, [facility] [place] [facility] [id number] [place] [address] September, [facility] [place] [id number] [id number] September, [facility] [place] [id number] [place] [address], [place] [id number] September, [facility] [place] [id number] [place] [address] September, [facility] [id number] [id number] Aug, [facility] [place] [id number] [place] [address] Aug, [facility] [place] [id number] [place] [address] Jul, [facility] [place] [address] [address] Jul, [facility] [place] [id number] [place] [address] Jul, [facility] [place] [address] [id number] Jun, [facility] [place] [id number] [place] [address] Jun, [facility] [place] [id number] [place] [address] Jun, [facility] [place] [id number] [id number] Jun, [facility] [place] [id number] [place] [address] [id number] May, [facility] [place] [facility] [address] [facility] [place] [address] May, [facility] [id number] [place] [address] Apr, [facility] [place] [id number] [id number] Mar, [facility] [id number] [place] [address] Mar, [facility] [id number] [place] [address] Mar, [facility] [id number] [place] [address] Mar, [facility] [place] [id number] [id number] Mar, [facility] [place] [id number] [place] [address], [place] [id number] Feb, [facility] [place] [facility] [id number] [place] [address] Feb, [facility] [place] [id number] [place] [address] [id number] Feb, [facility] [id number] [place] [address] Feb, [facility] [place] [address] [id number] [id number] Feb, [facility] [place] [facility] [id number] [place] [address] Feb, [facility] [place] [id number] [id number] Jan, [facility] [place] [id number] [id number] Dec, [facility] [place] [id number] [id number] Nov, [facility] [place] [id number] [id number] Oct, [facility] [place] [id number] [place] [address], [place] [id number] Oct, [facility] [place] [id number] [id number] Oct, [facility] [place] [address] [facility] [id number] Oct, [facility] [place] [facility] [id number] [place] [address] September, [facility] [place] [id number] [id number] September, [facility] [place] [facility] [id number] [place] [address] Aug, [facility] [place] [id number] [id number] Aug, [facility] [place] [id number] [place] [address], [place] [id number] Jun, [facility] [place] [id number] [id number] Jun, [facility] [place] [id number] [place] [address], [place] [id number] Feb, [facility] [place] [facility] [id number] [place] [address] Feb, [facility] [place] [id number] [id number] Feb, [facility] [place] [id number] [id number] Dec, [facility] [place] [facility] [address] [id number] [place] [address] Dec, [facility] [place] [id number] [place] [address] [id number] Dec, [facility] [place] [id number] [id number] Aug, [facility] [place] [id number] [id number] May, [facility] [place] [id number] [id number] May, [facility] [place] [facility] [address] [id number] [place] [address] Apr, [facility] [place] [facility] [id number] [place] [address] September, [facility] [address] [id number] [place] [address] Apr, [facility] [address] [id number] [place] [address] Apr, [facility] [address] [id number] [place] [address] Apr, IMMUNIZATIONS No Known Immunizations SOCIAL HISTORY [...]
--- OUTSIDE RECORDS SUMMARY | 2019-07-19 23:15 | XMS REPORT ---
Author Author Zoie DISLA Organization [facility] Address [address] [place] [address] Care Team Providers Care Tail End Rider Name Role Phone ELLEN DISLA Unavailable PROBLEMS Type Condition ICD9-CM Code XUS28-JM Code Onset Dates Condition S tatus SNOMED Code Problem Other and unspecified hyperlipidemia E78.5 Active 65859081 Problem Type 2 diabetes mellitus wit h other specified complication, without long-term current use of insulin E11.69 Active 40568120 Problem Chronic airway obstruction, 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 Active 28242100 Problem CAD (coronary artery disease) I25.10 Active 13546915 ALLERGIES No Information ENCOUNTERS Encounter Location Date Diagnosis [place] [id number] [place] [address] S [id number] Apr, [place] [id number] [place] [address] S [id number] Dec, Type 2 diabetes mellitus with other spec ified complication, without long-term current use of insulin E11.69 ; Chronic airway obstruction, 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 ; CAD (coronary artery disease) I25.10 and Deformity of toe of left foot M20.[id number] [place] [address], S [id number] Aug, Bilateral impacted cerumen H61.23 [place] [id number] [place] [address], S [id number] Aug, Bilateral impacted cerumen H61.23 ; CAD (coronary artery disease) I25.10 and Other and unspecified hyperlipidemia E78.5 [id number] [place] [address], S [id number] Jun, Encounter for Medicare annual wellness e xam Z00.00 ; Type 2 diabetes mellitus with other specified complication, without long-term current use of insulin E11.69 ; Chronic airway obstruction, 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 ; CAD (coronary artery disease) I25.10 ; Other and unspecified hyperlipidemia E78.5 and Breast cancer screening Z12.31 [facility] [address] [id number] [place] [id number] 11 Jun, 2018 DM w/o complication type II E11.9 ; Glassblower 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, 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 ; CAD (coronary artery disease) I25.10 and Vertigo R42 [facility] [address] [id number] [place] [id number] Feb, Encounter for immunization Z23 [facility] [place] [address] [id number] [place] [id number] Jan, DM w/o complication type II E11.9 and Ch ronic airway obstruction, 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 [facility] [address] [id number] [place] [id number] Dec, CAD (coronary artery disease) I25.10 [facility] [address] [id number] [place] [id number] Oct, DM w/o complication type II E11.9 ; Glassblower 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, 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 and CAD (coronary artery disease) I25.10 [facility] [address] [id number] [place] [id number] Jul, DM w/o complication type II E11.9 ; Glassblower 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, 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 and Infective urethritis N34.2 [facility] [address] [id number] [place] [id number] Jun, Syncope and collapse R55 [facility] [place] [address] [id number] [place] [id number] Jun, [facility] [place] [address] [id number] [place] [id number] May, Bronchitis J40 [facility] [place] [address] [id number] [place] [id number] May, [facility] [address] [id number] [place] [id number] May, [facility] [place] [address] [id number] [place] [id number] Apr, DM w/o complication type II E11.9 [facility] [place] [address] [id number] [place] [id number] Mar, DM w/o complication type II E11.9 ; Glassblower 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, 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 ; Dysuria R30.0 ; Tinea pedis of right foot B35.3 and Encounter for immunization Z23 [facility] [place] [address] [id number] [place] [id number] Feb, Medicare welcome exam Z00.00 [facility] [place] [address] [id number] [place] [id number] Jan, Chronic airway obstruction, not elsewher e classified J44.9 [facility] [place] [address] [id number] [place] [id number] Dec, [facility] [place] [address] [id number] [place] [id number] Dec, DM w/o complication type II E11.9 ; Glassblower 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, 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 and Acute cystitis with hematuria N30.01 [facility] [place] [address] [id number] [place] [id number] Oct, Encounter for screening for malignant ne oplasm of colon Z12.11 [facility] [place] [address] [id number] [place] [id number] Oct, Medicare welcome exam Z00.00 [facility] [place] [address] [id number] [place] [id number] September, Medicare welcome exam Z00.00 and Encount er for immunization Z23 [facility] [place] [address] [id number] [place] [id number] September, Bronchitis J40 [facility] [place] [address] [id number] [place] [id number] September, Bronchitis J40 [facility] [place] [address] [id number] [place] [id number] September, Other and unspecified hyperlipidemia E78 .5 [facility] [place] [address] [id number] [place] [id number] Aug, DM w/o complication type II E11.9 ; Glassblower 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, 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 and Other and unspecified hyperlipidemia E78.5 [facility] [place] [address] [id number] [place] [id number] May, DM w/o complication type II E11.9 and Ch ronic airway obstruction, 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 [facility] [place] [address] [id number] [place] [id number] Apr, Acute cystitis with hematuria N30.01 [facility] [place] [address] [id number] [place] [id number] Feb, DM w/o complication type II E11.9 [facility] [place] [address] [id number] [place] [id number] Feb, Chronic airway obstruction, not elsewher e classified J44.9 ; DM w/o complication type II E11.9 and Encounter for immunization Z23 [facility] [place] [address] [id number] [place] [id number] Dec, [facility] [place] [address] [id number] [place] [id number] Nov, Chronic airway obstruction, not elsewher e classified J44.9 [facility] [place] [address] [id number] [place] S [id number] Oct, DM w/o complication type II E11.9 [facility] [address] [id number] [address] [place] [address] Oct, [facility] [place] [address] [id number] [place] [id number] Aug, Chronic airway obstruction, not elsewher e classified J44.9 and DM w/o complication type II E11.9 [facility] [place] [address] [id number] [place] S [id number] Aug, Chronic airway obstruction, not elsewher e classified J44.9 [facility] [place] [address] [id number] [place] [id number] Aug, DM w/o complication type II E11.9 and Ch ronic airway obstruction, 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 [facility] [place] [address] [id number] [place] S [id number] Jul, [facility] [place] [address] [id number] [place] [id number] Jul, DM w/o complication type II E11.9 [facility] [place] [address] [id number] [place] [id number] Jun, [facility] [place] [address] [id number] [place] [id number] Jun, [facility] [place] [address] [id number] [place] [id number] Jun, Chronic airway obstruction, not elsewher e classified J44.9 ; DM w/o complication type II E11.9 and Other and unspecified hyperlipidemia E78.5 [facility] [place] [address] [id number] [place] S [id number] Jun, CAD (coronary artery disease) I25.10 and Dizziness R42 [facility] [place] [address] [id number] [place] [id number] Jun, Bronchitis J40 [facility] [place] [address] [id number] [place] S [id number] May, Hematoma T14.8 [facility] [place] [address] [id number] [place] [id number] May, [facility] [place] [address] [id number] [place] [id number] May, Bronchitis J40 [facility] [place] [address] [id number] [place] [id number] Apr, Bronchitis J40 [facility] [address] [facility] [id number] [address] [place] [address] Apr, [facility] [place] [address] [id number] [place] [id number] Mar, [facility] [address] [facility] [address] [id number][place] [id number] Mar, [facility] [place] [address] [id number] [place] [id number] Mar, [facility] [facility] [address] [id number] [id number] Mar, [facility] [place] [address] [id number] [place] [id number] Mar, SOB (shortness of breath) R06.02 [facility] [place] [address] [id number] [place] [id number] Feb, Urinary tract infection, site not specif ied N39.0 and Hematuria, unspecified R31.9 [facility] [place] [address] [id number] [place] [id number] Feb, DM w/o complication type II E11.9 ; Enco unter for immunization Z23 and Chronic airway obstruction, 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 [facility] [id number] [id number] Jan, [facility] [address] [place] [id number] [place] [id number] Jan, [facility] [place] [address] [id number] [place] [id number] Dec, [facility] [place] [address] [id number] [place] [id number] Dec, [facility] [place] [address] [id number] [place] [id number] Dec, [facility] [place] [address] [id number] [place] [id number] Dec, [facility] [place] [address] [id number] [place] [id number] Dec, Blood in the stool 578.1 [facility] [place] [address] [id number] [place] [id number] Nov, [facility] [place] [address] [id number] [place] [id number] Nov, Colon cancer screening V76.51 [facility] [place] [address] [id number] [place] [id number] Nov, Vertigo 780.4 [facility] [place] [address] [id number] [place] S [id number] Nov, Routine gynecological examination V72.31 ; Pap test, as part of routine gynecological examination V76.2 ; Breast cancer screening V76.10 ; Postmenopausal V49.81 and Colon cancer screening V76.51 [facility] [address] [id number] [place] [id number] Nov, [facility] [address] [id number] [place] [id number] Nov, [facility] [address] [place] [id number] [address] [place] [address] Nov, [facility] [address] [facility] [id number] [place] [id number] Oct, Diabetes 250.00 ; COPD (chronic obstruct misha pulmonary disease) 496 and GERD (gastroesophageal reflux disease) 530.81 [facility] [address] [id number] [address] [place] [address] Oct, [facility] [address] [id number] [place] [id number] Oct, [facility] [address] [facility] [id number] [place] [id number] Oct, [facility] [address] [id number] [place] [id number] Oct, Reflux 530.81 [facility] [address] [id number] [address] [place] [address] Oct, [facility] [address] [id number] [place] [id number] Oct, [facility] [address] [id number] [place] [id number] Oct, [facility] [address] [id number] [place] [id number] Oct, Dysuria 788.1 [facility] [place] [address] [id number] [place] [id number] Oct, Dysuria 788.1 [facility] [address] [facility] [id number] [address] [place] [address] September, [facility] [place] [address] [facility] [id number] [place] [id number] September, Diabetes 250.00 and COPD (chronic obstru ctive pulmonary disease) 496 [facility] [place] [address] [facility] [id number] [place] [id number] September, [facility] [place] [address] [facility] [id number] [place] [id number] September, [facility] [address] [id number][place] [id number] September, [facility] [place] [address] [facility] [id number] [place] [id number] Aug, Osteoarthritis 715.90 ; Diabetes 250.00 and COPD (chronic obstructive pulmonary disease) 496 [facility] [place] [address] [facility] [id number] [place] [id number] Aug, Pure hypercholesterolemia 272.0 ; Essent ial hypertension, benign 401.1 and Loss of weight 783.21 [facility] [address] [place] [id number] [address] [place] [address] Aug, [facility] [address] [id number] [address] [place] [address] Aug, [facility] [address] [facility] [id number] [place] [id number] Jul, [facility] [address] [facility] [id number] [address] [place] [address] Jul, [facility] [address] [id number] [address] [place] [address] Jun, [facility] [address] [id number] [address] [place] [address] Jun, [facility] [address] [id number] [place] [id number] Jun, [facility] [address] [id number] [facility] [place] [address] May, [facility] [place] [address] [id number] [place] [id number] May, [facility] [place] [address] [id number] [place] [id number] Apr, [facility] [address] [id number] [facility] [place] [address] Apr, [facility] [place] [address] [id number] [place] [id number] Apr, [facility] [address] [id number] [address] [place] [address], [place] [address] Apr, [facility] [place] [address] [id number] [place] [id number] Apr, [facility] [address] [facility] [id number] [address] [place] [address], [place] [address] Apr, [facility] [place] [address] [id number] [place] [id number] Feb, [facility] [address] [id number] [address] [place] [address] Feb, [facility] [place] [address] [id number] [place] [id number] Feb, [facility] [address] [facility] [id number] [address] [place] [address] Feb, [facility] [address] [id number] [address] [place] [address] Jan, [facility] [place] [address] [id number] [place] [id number] Jan, [facility] [address] [id number] [address] [place] [address] Jan, [facility] [place] [address] [id number] [place] S [id number] Jan, [facility] [address] [id number] [address] [place] [address], [place] [address] Jan, [facility] [address] [id number] [address] [place] [address], [place] [address] Dec, [facility] [address] [id number] [address] [place] [address], [place] [address] Dec, [facility] [place] [address] [id number] [place] [id number] September, [facility] [address] [id number] [address] [place] [address], [place] [address] September, [facility] [address] [id number] [address] [place] [address], [place] [address] September, [facility] [place] [address] [id number] [place] [id number] September, [facility] [place] [address] [id number] [place] [id number] September, [facility] [address] [id number] [address] [place] [address], [place] [address] September, [facility] [place] [address] [id number] [place] [id number] Aug, [facility] [address] [id number] [address] [place] [address], [place] [address] Aug, [facility] [address] [id number] [address] [place] [address], [place] [address] Jul, [facility] [place] [address] [id number] [place] [id number] Jul, [facility] [address] [id number] [address] [place] [address], [place] [address] Jul, [facility] [place] [address] [id number] [place] [id number] Jun, [facility] [address] [id number] [address] [place] [address], [place] [address] Jun, [facility] [address] [id number] [address] [place] [address], [place] [address] Jun, [facility] [place] [address] [id number] [place] [id number] Jun, [facility] [place] [address] [id number] [place] [id number] May, [facility] [address] [id number] [address] [place] [address], [place] [address] May, [facility] [address] [id number] [address] [place] [address], [place] [address] Apr, [facility] [place] [address] [id number] [place] [id number] Mar, [facility] [address] [id number] [address] [place] [address], [place] [address] Mar, [facility] [address] [id number] [address] [place] [address], [place] [address] Mar, [facility] [address] [facility] [id number] [address] [place] [address] Mar, [facility] [place] [address] [id number] [place] [id number] Mar, [facility] [place] [address] [id number] [place] [id number] Feb, [facility] [address] [id number] [address] [place] [address] Feb, [facility] [place] [address] [id number] [place] [id number] Feb, [facility] [address] [id number] [address] [place] [address], [place] [address] Feb, [facility] [place] [address] [id number] [place] [id number] Feb, [facility] [address] [id number] [address] [place] [address], [place] [address] Feb, [facility] [place] [address] [id number] [place] [id number] Jan, [facility] [place] [address] [id number] [place] [id number] Dec, [facility] [place] [address] [id number] [place] [id number] Nov, [facility] [place] [address] [id number] [place] [id number] Oct, [facility] [place] [address] [id number] [place] [id number] Oct, [facility] [place] [address] [id number] [place] [id number] Oct, [facility] [place] [address] [id number] [place] [id number] Oct, [facility] [address] [id number] [address] [place] [address] September, [facility] [place] [address] [id number] [place] [id number] September, [facility] [address] [id number] [address] [place] [address] Aug, [facility] [place] [address] [id number] [place] [id number] Aug, [facility] [place] [address] [id number] [place] [id number] Jun, [facility] [place] [address] [id number] [place] [id number] Jun, [facility] [place] [address] [id number] [place] [id number] Feb, [facility] [address] [facility] [id number] [address] [place] [address] Feb, [facility] [place] [address] [id number] [place] [id number] Feb, [facility] [place] [address] [id number] [place] [id number] Dec, [facility] [address] [id number] [address] [place] [address] Dec, [facility] [place] [address] [id number] [place] [id number] Dec, [facility] [address] [facility] [id number] [place] [id number] Aug, [facility] [address] [facility] [id number] [place] [id number] May, [facility] [address] [facility] [id number] [place] [id number] May, [facility] [address] [id number] [address] [place] [address] Apr, [facility] [address] [id number] [address] [place] [address] September, [facility] [address] [id number] [address] [place] [address] Apr, [facility] [address] [id number] [address] [place] [address] Apr, [facility] [id number] [place] [address] Apr, IMMUNIZATIONS No Known Immunizations SOCIAL HISTORY [...]
--- OUTSIDE RECORDS SUMMARY | 2019-07-19 23:15 | XMS REPORT ---
Author Author Zoie DISLA Organization [facility] Address [address] [place] [address] Care Team Providers Care Director Construction Services Name Role Phone ELLEN DISLA Unavailable PROBLEMS Type Condition ICD9-CM Code PIZ66-DW Code Onset Dates Condition S tatus SNOMED Code Problem Other and unspecified hyperlipidemia E78.5 Active 91966558 Problem Type 2 diabetes mellitus wit h other specified complication, without long-term current use of insulin E11.69 Active 68090147 Problem Chronic airway obstruction, 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 Active 52426387 Problem CAD (coronary artery disease) I25.10 Active 15761326 ALLERGIES No Information ENCOUNTERS Encounter Location Date Diagnosis [place] [id number] [place] [address] S [id number] Aug, Bilateral impacted cerumen H61.23 [place] [id number] [place] [address] S [id number] Aug, Bilateral impacted cerumen H61.23 ; CAD (coronary artery disease) I25.10 and Other and unspecified hyperlipidemia E78.[id number] [place] [address] S [id number] Jun, Encounter for Medicare annual wellness e xam Z00.00 ; Type 2 diabetes mellitus with other specified complication, without long-term current use of insulin E11.69 ; Chronic airway obstruction, 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 ; CAD (coronary artery disease) I25.10 ; Other and unspecified hyperlipidemia E78.5 and Breast cancer screening Z12.31 [place] [id number] [place] [address], S [id number] 11 Jun, 2018 DM w/o complication type II E11.9 ; 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, 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 ; CAD (coronary artery disease) I25.10 and Vertigo R42 [place] [id number] [id number] Feb, Encounter for immunization Z23 [facility] [place] [address] [id number] [place] [id number] Jan, DM w/o complication type II E11.9 and Ch ronic airway obstruction, 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 [facility] [place] [address] [id number] [place] [id number] Dec, CAD (coronary artery disease) I25.10 [facility] [place] [address] [id number] [place] [id number] Oct, DM w/o complication type II E11.9 ; 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, 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 and CAD (coronary artery disease) I25.10 [facility] [place] [address] [id number] [place] [id number] Jul, DM w/o complication type II E11.9 ; 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, 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 and Infective urethritis N34.2 [facility] [place] [address] [id number] [place] [id number] Jun, Syncope and collapse R55 [facility] [place] [address] [id number] [place] [id number] Jun, [facility] [place] [address] [id number] [place] [id number] May, Bronchitis J40 [facility] [place] [address] [id number] [place] [id number] May, [facility] [place] [address] [id number] [place] [id number] May, [facility] [place] [address] [id number] [place] [id number] Apr, DM w/o complication type II E11.9 [facility] [place] [address] [id number] [place] [id number] Mar, DM w/o complication type II E11.9 ; 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, 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 ; Dysuria R30.0 ; Tinea pedis of right foot B35.3 and Encounter for immunization Z23 [facility] [place] [address] [id number] [place] [id number] Feb, Medicare welcome exam Z00.00 [facility] [place] [address] [id number] [place] [id number] Jan, Chronic airway obstruction, not elsewher e classified J44.9 [facility] [place] [address] [id number] [place] [id number] Dec, [facility] [place] [address] [id number] [place] [id number] Dec, DM w/o complication type II E11.9 ; 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, 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 and Acute cystitis with hematuria N30.01 [facility] [place] [address] [id number] [place] [id number] Oct, Encounter for screening for malignant ne oplasm of colon Z12.11 [facility] [place] [address] [id number] [place] [id number] Oct, Medicare welcome exam Z00.00 [facility] [place] [address] [id number] [place] [id number] September, Medicare welcome exam Z00.00 and Encount er for immunization Z23 [facility] [place] [address] [id number] [place] [id number] September, Bronchitis J40 [facility] [place] [address] [id number] [place] [id number] September, Bronchitis J40 [facility] [place] [address] [id number] [place] [id number] September, Other and unspecified hyperlipidemia E78 .5 [facility] [place] [address] [id number] [place] [id number] Aug, DM w/o complication type II E11.9 ; 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, 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 and Other and unspecified hyperlipidemia E78.5 [facility] [place] [address] [id number] [place] [id number] May, DM w/o complication type II E11.9 and Ch ronic airway obstruction, 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 [facility] [place] [address] [id number] [place] [id number] Apr, Acute cystitis with hematuria N30.01 [facility] [place] [address] [id number] [place] [id number] Feb, DM w/o complication type II E11.9 [facility] [place] [address] [id number] [place] [id number] Feb, Chronic airway obstruction, not elsewher e classified J44.9 ; DM w/o complication type II E11.9 and Encounter for immunization Z23 [facility] [place] [address] [id number] [place] [id number] Dec, [facility] [place] [address] [id number] [place] [id number] Nov, Chronic airway obstruction, not elsewher e classified J44.9 [facility] [place] [address] [id number] [place] [id number] Oct, DM w/o complication type II E11.9 [facility] [address] [facility] [id number] [address] [place] [address] Oct, [facility] [place] [address] [id number] [place] [id number] Aug, Chronic airway obstruction, not elsewher e classified J44.9 and DM w/o complication type II E11.9 [facility] [place] [address] [id number] [place] [id number] Aug, Chronic airway obstruction, not elsewher e classified J44.9 [facility] [place] [address] [id number] [place] S [id number] Aug, DM w/o complication type II E11.9 and Ch ronic airway obstruction, 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 [facility] [place] [address] [id number] [place] [id number] Jul, [facility] [place] [address] [id number] [place] S [id number] Jul, DM w/o complication type II E11.9 [facility] [place] [address] [id number] [place] [id number] Jun, [facility] [place] [address] [id number] [place] [id number] Jun, [facility] [place] [address] [id number] [place] [id number] Jun, Chronic airway obstruction, not elsewher e classified J44.9 ; DM w/o complication type II E11.9 and Other and unspecified hyperlipidemia E78.5 [facility] [place] [address] [id number] [place] [id number] Jun, CAD (coronary artery disease) I25.10 and Dizziness R42 [facility] [place] [address] [id number] [place] [id number] Jun, Bronchitis J40 [facility] [place] [address] [place] [address] [id number] [place] [id number] May, Hematoma T14.8 [facility] [place] [address] [place] [id number] [place] [address], [place] [id number] May, [facility] [place] [address] [id number] [place] [id number] May, Bronchitis J40 [facility] [place] [address] [id number] [place] [id number] Apr, Bronchitis J40 [facility] [address] [facility] [id number] [facility] [place] [address] Apr, [facility] [place] [address] [id number] [place] [id number] Mar, [facility] [address] [id number] [place] [id number] Mar, [facility] [place] [address] [id number] [place] [id number] Mar, [facility] [address] [id number] [place] [id number] Mar, [facility] [place] [address] [id number] [place] [id number] Mar, SOB (shortness of breath) R06.02 [facility] [place] [address] [id number] [place] [id number] Feb, Urinary tract infection, site not specif ied N39.0 and Hematuria, unspecified R31.9 [facility] [address] [id number] [place] [id number] Feb, DM w/o complication type II E11.9 ; Enco unter for immunization Z23 and Chronic airway obstruction, 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 [facility] [address] [facility] [id number] [facility] [place] [id number] Jan, [facility] [address] [facility] [id number] [facility] [place] [id number] Jan, [facility] [address] [id number] [place] [id number] Dec, [facility] [address] [id number] [place] [id number] Dec, [facility] [place] [address] [id number] [place] [id number] Dec, [facility] [place] [address] [id number] [place] [id number] Dec, [facility] [place] [address] [id number] [place] [id number] Dec, Blood in the stool 578.1 [facility] [place] [address] [id number] [place] S [id number] Nov, [facility] [place] [address] [id number] [place] [id number] Nov, Colon cancer screening V76.51 [facility] [address] [id number] [place] [id number] Nov, Vertigo 780.4 [facility] [place] [address] [id number] [place] [id number] Nov, Routine gynecological examination V72.31 ; Pap test, as part of routine gynecological examination V76.2 ; Breast cancer screening V76.10 ; Postmenopausal V49.81 and Colon cancer screening V76.51 [facility] [address] [id number] [place] [id number] Nov, [facility] [place] [address] [facility] [id number] [place] [id number] Nov, [facility] [address] [facility] [id number] [address] [place] [address] Nov, [facility] [place] [address] [facility] [id number] [place] [id number] Oct, Diabetes 250.00 ; COPD (chronic obstruct misha pulmonary disease) 496 and GERD (gastroesophageal reflux disease) 530.81 [facility] [address] [facility] [id number] [address] [place] [address] Oct, [facility] [place] [address] [facility] [id number] [place] [id number] Oct, [facility] [place] [address] [place] [address] [id number] [place] S [id number] Oct, [facility] [place] [address] [facility] [id number] [place] [id number] Oct, Reflux 530.81 [facility] [address] [facility] [id number] [address] [place] [address] Oct, [facility] [place] [address] [facility] [id number] [place] [id number] Oct, [facility] [place] [address] [facility] [id number] [place] [id number] Oct, [facility] [place] [address] [place] [address] [id number] [place] [id number] Oct, Dysuria 788.1 [facility] [place] [address] [facility] [id number] [place] [id number] Oct, Dysuria 788.1 [facility] [address] [facility] [id number] [address] [place] [address] September, [facility] [place] [address] [facility] [id number] [place] [id number] September, Diabetes 250.00 and COPD (chronic obstru ctive pulmonary disease) 496 [facility] [place] [address] [facility] [id number] [place] [id number] September, [facility] [place] [address] [id number] [place] [id number] September, [facility] [address] [facility] [address] [id number] [place] [id number] September, [facility] [place] [address] [id number] [place] [id number] Aug, Osteoarthritis 715.90 ; Diabetes 250.00 and COPD (chronic obstructive pulmonary disease) 496 [facility] [place] [address] [id number] [place] [id number] Aug, Pure hypercholesterolemia 272.0 ; Essent ial hypertension, benign 401.1 and Loss of weight 783.21 [facility] [address] [facility] [id number] [address] [place] [address] Aug, [facility] [address] [facility] [id number] [address] [place] [address] Aug, [facility] [place] [address] [facility] [id number] [place] [id number] Jul, [facility] [address] [facility] [id number] [address] [place] [address] Jul, [facility] [address] [facility] [id number] [address] [place] [address] Jun, [facility] [address] [facility] [id number] [address] [place] [address] Jun, [facility] [place] [address] [facility] [id number] [place] [id number] Jun, [facility] [place] [facility] [address] [facility] [id number] [address] [place] [address] May, [facility] [place] [address] [id number] [place] S [id number] May, [facility] [place] [address] [facility] [id number] [place] S [id number] Apr, [facility] [address] [facility] [id number] [address] [place] [address] Apr, [facility] [place] [address] [id number] [place] [id number] Apr, [facility] [address] [id number] [address] [place] [address], [place] [address] Apr, [facility] [place] [address] [id number] [place] [id number] Apr, [facility] [address] [id number] [address] [place] [address], [place] [address] Apr, [facility] [place] [address] [id number] [place] [id number] Feb, [facility] [address] [id number] [address] [place] [address], [place] [address] Feb, [facility] [place] [address] [id number] [place] [id number] Feb, [facility] [address] [id number] [address] [place] [address], [place] [address] Feb, [facility] [address] [id number] [address] [place] [address], [place] [address] Jan, [facility] [place] [address] [id number] [place] [id number] Jan, [facility] [address] [id number] [address] [place] [address], [place] [address] Jan, [facility] [place] [address] [id number] [place] [id number] Jan, [facility] [address] [id number] [address] [place] [address], [place] [address] Jan, [facility] [address] [id number] [address] [place] [address], [place] [address] Dec, [facility] [address] [id number] [address] [place] [address], [place] [address] Dec, [facility] [place] [address] [id number] [place] [id number] September, [facility] [address] [id number] [facility] [place] [address] September, [facility] [address] [id number] [address] [place] [address], [place] [address] September, [facility] [place] [address] [id number] [place] [id number] September, [facility] [place] [address] [id number] [place] [id number] September, [facility] [address] [id number] [facility] [place] [address] September, [facility] [place] [address] [id number] [place] [id number] Aug, [facility] [address] [id number] [address] [place] [address], [place] [address] Aug, [facility] [address] [id number] [address] [place] [address], [place] [address] Jul, [facility] [place] [address] [id number] [place] [id number] Jul, [facility] [address] [id number] [address] [place] [address], [place] [address] Jul, [facility] [place] [address] [id number] [place] S [id number] Jun, [facility] [address] [id number] [address] [place] [address], [place] [address] Jun, [facility] [address] [id number] [address] [place] [address], [place] [address] Jun, [facility] [place] [address] [id number] [place] S [id number] Jun, [facility] [place] [address] [id number] [place] [id number] May, [facility] [address] [id number] [address] [place] [address], [place] [address] May, [facility] [address] [id number] [address] [place] [address] Apr, [facility] [place] [address] [id number] [place] [id number] Mar, [facility] [address] [facility] [id number] [address] [place] [address] Mar, [facility] [address] [facility] [id number] [address] [place] [address] Mar, [facility] [address] [facility] [id number] [address] [place] [address] Mar, [facility] [place] [address] [id number] [place] [id number] Mar, [facility] [place] [address] [id number] [place] [id number] Feb, [facility] [address] [facility] [id number] [address] [place] [address] Feb, [facility] [place] [address] [id number] [place] [id number] Feb, [facility] [address] [facility] [id number] [address] [place] [address] Feb, [facility] [place] [address] [id number] [place] [id number] Feb, [facility] [address] [facility] [id number] [address] [place] [address] Feb, [facility] [place] [address] [id number] [place] [id number] Jan, [facility] [place] [address] [id number] [place] [id number] Dec, [facility] [place] [address] [id number] [place] [id number] Nov, [facility] [place] [address] [id number] [place] [id number] Oct, [facility] [place] [address] [id number] [place] [id number] Oct, [facility] [place] [address] [id number] [place] S [id number] Oct, [facility] [place] [address] [id number] [place] [id number] Oct, [facility] [address] [id number] [address] [place] [address] September, [facility] [place] [address] [id number] [place] [id number] September, [facility] [place] [facility] [address] [id number] [address] [place] [address], [place] [address] Aug, [facility] [place] [address] [id number] [place] [id number] Aug, [facility] [place] [address] [id number] [place] [id number] Jun, [facility] [place] [address] [id number] [place] S [id number] Jun, [facility] [place] [address] [id number] [place] S [id number] Feb, [facility] [place] [facility] [address] [id number] [address] [place] [address], [place] [address] Feb, [facility] [place] [address] [id number] [place] [id number] Feb, [facility] [place] [address] [id number] [place] [id number] Dec, [facility] [place] [facility] [address] [id number] [address] [place] [address], [place] [address] Dec, [facility] [address] [id number] [place] [id number] Dec, [facility] [place] [address] [id number] [place] [id number] Aug, [facility] [place] [address] [id number] [place] [id number] May, [facility] [address] [id number] [place] [id number] May, [facility] [place] [facility] [address] [id number] [address] [place] [address] Apr, [facility] [address] [facility] [id number] [address] [place] [address] September, [facility] [address] [facility] [id number] [address] [place] [id number] Apr, [facility] [address] [facility] [id number] [address] [place] [address] Apr, [facility] [address] [facility] [id number] [address] [place] [address] Apr, IMMUNIZATIONS No Known Immunizations SOCIAL HISTORY Never Assessed REASON FOR VISIT PLAN OF CARE VITAL SIGNS Height 66 in 2014-06-22 Weight 167.12 lbs 2014-06-22 Temperature 98.4 degrees Fahrenheit 2014-06-22 Heart Rate 96 bpm 2014-06-22 Respiratory Rate 20 2014-06-22 Blood pressure systolic 132 mmHg 2014-06-22 Blood pressure diastolic 88 mmHg 2014-06-22 MEDICATIONS No Known Medications RESULTS No Results PROCEDURES No Known [...]
--- OUTSIDE RECORDS SUMMARY | 2019-07-19 23:15 | XMS REPORT ---
Author Author Zoie Abebe Doctor Organization [facility] Address Unknown Phone Unavailable Care Team Providers Care Electrician Station Assistant Name Role Phone Migration, Doctor Unavailable Unavailable PROBLEMS Type Condition ICD9-CM Code [id number] Code Onset Dates Condition S tatus SNOMED Code Problem Other and unspecified hyperlipidemia E78.5 Active 94473315 Problem Type 2 diabetes mellitus wit h other specified complication, without long-term current use of insulin E11.69 Active 44922835 Problem Chronic airway obstruction, 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 Active 38805931 Problem CAD (coronary artery disease) I25.10 Active [id number] ALLERGIES No Information ENCOUNTERS Encounter Location Date Diagnosis [place] [id number] [place] [address] S [id number] Apr, [place] [id number] [place] [address] S [id number] Dec, Type 2 diabetes mellitus with other spec ified complication, without long-term current use of insulin E11.69 ; Chronic airway obstruction, 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 ; CAD (coronary artery disease) I25.10 and Deformity of toe of left foot M20.[address] [place] [address], S [id number] Aug, Bilateral impacted cerumen H61.23 [place] [id number] [place] [address] S [id number] Aug, Bilateral impacted cerumen H61.23 ; CAD (coronary artery disease) I25.10 and Other and unspecified hyperlipidemia E78.5 [place] [id number] [place] [address], S [id number] Jun, Encounter for Medicare annual wellness e xam Z00.00 ; Type 2 diabetes mellitus with other specified complication, without long-term current use of insulin E11.69 ; Chronic airway obstruction, 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 ; CAD (coronary artery disease) I25.10 ; Other and unspecified hyperlipidemia E78.5 and Breast cancer screening Z12.31 [facility] [place] [address] [id number] [place] [id number] 11 Jun, 2018 DM w/o complication type II E11.9 ; Service Advisor 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, 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 ; CAD (coronary artery disease) I25.10 and Vertigo R42 [facility] [place] [address] [id number] [place] [id number] 09 Feb, 2018 Encounter for immunization Z23 [facility] [place] [address] [id number] [place] [id number] Jan, DM w/o complication type II E11.9 and Ch ronic airway obstruction, 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 [facility] [place] [address] [id number] [place] [id number] Dec, CAD (coronary artery disease) I25.10 [facility] [place] [address] [id number] [place] [id number] Oct, DM w/o complication type II E11.9 ; Service Advisor 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, 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 and CAD (coronary artery disease) I25.10 [facility] [place] [address] [id number] [place] [id number] Jul, DM w/o complication type II E11.9 ; Service Advisor 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, 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 and Infective urethritis N34.2 [facility] [place] [address] [id number] [place] [id number] Jun, Syncope and collapse R55 [facility] [place] [address] [id number] [place] [id number] Jun, [facility] [place] [address] [id number] [place] [id number] May, Bronchitis J40 [facility] [place] [address] [id number] [place] [id number] May, [facility] [place] [address] [id number] [place] [id number] May, [facility] [place] [address] [id number] [place] [id number] Apr, DM w/o complication type II E11.9 [facility] [place] [address] [id number] [place] [id number] Mar, DM w/o complication type II E11.9 ; Service Advisor 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, 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 ; Dysuria R30.0 ; Tinea pedis of right foot B35.3 and Encounter for immunization Z23 [facility] [place] [address] [id number] [place] [id number] Feb, Medicare welcome exam Z00.00 [facility] [place] [address] [id number] [place] [id number] Jan, Chronic airway obstruction, not elsewher e classified J44.9 [facility] [place] [address] [id number] [place] [id number] Dec, [facility] [place] [address] [id number] [place] [id number] Dec, DM w/o complication type II E11.9 ; Service Advisor 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, 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 and Acute cystitis with hematuria N30.01 [facility] [place] [address] [id number] [place] [id number] Oct, Encounter for screening for malignant ne oplasm of colon Z12.11 [facility] [place] [address] [id number] [place] [id number] Oct, Medicare welcome exam Z00.00 [facility] [place] [address] [id number] [place] [id number] September, Medicare welcome exam Z00.00 and Encount er for immunization Z23 [facility] [place] [address] [id number] [place] [id number] September, Bronchitis J40 [facility] [place] [address] [id number] [place] [id number] September, Bronchitis J40 [facility] [place] [address] [id number] [place] [id number] September, Other and unspecified hyperlipidemia E78 .5 [facility] [place] [address] [id number] [place] [id number] Aug, DM w/o complication type II E11.9 ; Service Advisor 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, 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 and Other and unspecified hyperlipidemia E78.5 [facility] [address] [id number] [place] [id number] May, DM w/o complication type II E11.9 and Ch ronic airway obstruction, 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 [facility] [place] [address] [id number] [place] [id number] Apr, Acute cystitis with hematuria N30.01 [facility] [place] [address] [id number] [place] [id number] Feb, DM w/o complication type II E11.9 [facility] [address] [id number] [place] [id number] Feb, Chronic airway obstruction, not elsewher e classified J44.9 ; DM w/o complication type II E11.9 and Encounter for immunization Z23 [facility] [address] [id number] [place] [id number] Dec, [facility] [place] [address] [id number] [place] [id number] Nov, Chronic airway obstruction, not elsewher e classified J44.9 [facility] [address] [id number] [place] [id number] Oct, DM w/o complication type II E11.9 [facility] [address] [facility] [id number] [place] [address] Oct, [facility] [place] [address] [facility] [id number] [place] [id number] Aug, Chronic airway obstruction, not elsewher e classified J44.9 and DM w/o complication type II E11.9 [facility] [place] [address] [id number] [place] S [id number] Aug, Chronic airway obstruction, not elsewher e classified J44.9 [facility] [place] [address] [id number] [place] [id number] Aug, DM w/o complication type II E11.9 and Ch ronic airway obstruction, not elsewhere classified J44.9 [facility] [place] [address] [id number] [place] [id number] Jul, [facility] [place] [address] [id number] [place] [id number] Jul, DM w/o complication type II E11.9 [facility] [place] [address] [id number] [place] S [id number] Jun, [facility] [place] [address] [id number] [place] S [id number] Jun, [facility] [place] [address] [id number] [place] [id number] Jun, Chronic airway obstruction, not elsewher e classified J44.9 ; DM w/o complication type II E11.9 and Other and unspecified hyperlipidemia E78.5 [facility] [place] [address] [id number] [place] [id number] 11 Jun, 2015 CAD (coronary artery disease) I25.10 and Dizziness R42 [facility] [place] [address] [id number] [place] [id number] Jun, Bronchitis J40 [facility] [place] [address] [id number] [place] [id number] May, Hematoma T14.8 [facility] [place] [address] [id number] [place] [id number] May, [facility] [place] [address] [id number] [place] [id number] May, Bronchitis J40 [facility] [place] [address] [id number] [place] [id number] Apr, Bronchitis J40 [facility] [address] [facility] [id number] [address] [address] Apr, [facility] [place] [address] [id number] [place] [id number] Mar, [facility] [address] [id number] [id number] Mar, [facility] [place] [address] [id number] [place] [id number] Mar[facility] [address] [id number] [place] [id number] Mar, [facility] [place] [address] [id number] [place] [id number] Mar, SOB (shortness of breath) R06.02 [facility] [place] [address] [id number] [place] [id number] Feb, Urinary tract infection, site not specif ied N39.0 and Hematuria, unspecified R31.9 [facility] [place] [address] [id number] [place] [id number] Feb, DM w/o complication type II E11.9 ; Enco unter for immunization Z23 and Chronic airway obstruction, not elsewhere classified J44.9 [facility] [id number] [place] [id number] Jan, [facility] [address] [facility] [id number] [place] [id number] Jan, [facility] [place] [address] [id number] [place] [id number] Dec, [facility] [place] [address] [id number] [place] [id number] Dec, [facility] [place] [address] [id number] [place] [id number] Dec, [facility] [place] [address] [id number] [place] [id number] Dec, [facility] [place] [address] [id number] [place] [id number] Dec, Blood in the stool 578.1 [facility] [place] [address] [id number] [place] [id number] Nov, [facility] [place] [address] [id number] [place] [id number] Nov, Colon cancer screening V76.51 [facility] [place] [address] [id number] [place] [id number] Nov, Vertigo 780.4 [facility] [address] [id number] [place] [id number] Nov, Routine gynecological examination V72.31 ; Pap test, as part of routine gynecological examination V76.2 ; Breast cancer screening V76.10 ; Postmenopausal V49.81 and Colon cancer screening V76.51 [facility] [address] [id number] [place] [id number] Nov, [facility] [address] [id number] [place] [id number] Nov, [facility] [address] [facility] [id number] [address] [place] [address] Nov, [facility] [address] [facility] [id number] [place] [id number] Oct, Diabetes 250.00 ; COPD (chronic obstruct misha pulmonary disease) 496 and GERD (gastroesophageal reflux disease) 530.81 [facility] [address] [place] [id number] [place] [address] Oct, [facility] [address] [id number] [place] [id number] Oct, [facility] [place] [address] [id number] [place] [id number] Oct, [facility] [address] [id number] [place] [id number] Oct, Reflux 530.81 [facility] [address] [facility] [id number] [address] [place] [address] Oct, [facility] [address] [id number] [place] [id number] Oct, [facility] [place] [address] [id number] [place] [id number] Oct, [facility] [place] [address] [id number] [place] [id number] Oct, Dysuria 788.1 [facility] [place] [address] [id number] [place] [id number] Oct, Dysuria 788.1 [facility] [address] [facility] [id number] [address] [place] [address] September, [facility] [place] [address] [id number] [place] [id number] September, Diabetes 250.00 and COPD (chronic obstru ctive pulmonary disease) 496 [facility] [place] [address] [id number] [place] [id number] September, [facility] [place] [address] [id number] [place] [id number] September, [facility] [place] [id number] [facility] [address] [id number] [id number] September, [facility] [place] [address] [facility] [id number] [place] [id number] Aug, Osteoarthritis 715.90 ; Diabetes 250.00 and COPD (chronic obstructive pulmonary disease) 496 [facility] [place] [address] [facility] [id number] [place] [id number] Aug, Pure hypercholesterolemia 272.0 ; Essent ial hypertension, benign 401.1 and Loss of weight 783.21 [facility] [address] [facility] [id number] [address] [place] [address] Aug, [facility] [address] [facility] [id number] [address] [place] [address] Aug, [facility] [place] [address] [facility] [id number] [place] [id number] Jul, [facility] [address] [facility] [id number] [address] [place] [address] Jul, [facility] [address] [facility] [id number] [address] [place] [address] Jun, [facility] [address] [facility] [id number] [address] [place] [address] Jun, [facility] [place] [address] [facility] [id number] [place] [id number] Jun, [facility] [address] [facility] [id number] [address] [place] [address] May, [facility] [place] [address] [id number] [place] [id number] May, [facility] [place] [address] [id number] [place] [id number] Apr, [facility] [address] [id number] [facility] [place] [address] Apr, [facility] [place] [address] [id number] [place] [id number] Apr, [facility] [address] [id number] [address] [place] [address], [place] [address] Apr, [facility] [place] [address] [id number] [place] [id number] Apr, [facility] [address] [id number] [address] [place] [address], [place] [address] Apr, [facility] [place] [address] [id number] [place] [id number] Feb, [facility] [address] [id number] [address] [place] [address], [place] [address] Feb, [facility] [place] [address] [id number] [place] [id number] Feb, [facility] [address] [id number] [address] [place] [address], [place] [address] Feb, [facility] [address] [id number] [address] [place] [address], [place] [address] Jan, [facility] [place] [address] [id number] [place] [id number] Jan, [facility] [address] [id number] [address] [place] [address], [place] [address] Jan, [facility] [place] [address] [id number] [place] [id number] Jan, [facility] [address] [id number] [address] [place] [address], [place] [address] Jan, [facility] [address] [id number] [address] [place] [address], [place] [address] Dec, [facility] [address] [id number] [address] [place] [address], [place] [address] Dec, [facility] [place] [address] [id number] [place] [id number] September, [facility] [address] [id number] [address] [place] [address], [place] [address] September, [facility] [address] [id number] [address] [place] [address], [place] [address] September, [facility] [place] [address] [id number] [place] [id number] September, [facility] [place] [address] [id number] [place] [id number] September, [facility] [address] [id number] [address] [place] [address], [place] [address] September, [facility] [place] [address] [id number] [place] [id number] Aug, [facility] [address] [id number] [address] [place] [address], [place] [address] Aug, [facility] [address] [id number] [address] [place] [address], [place] [address] Jul, [facility] [place] [address] [id number] [place] [id number] Jul, [facility] [address] [id number] [address] [place] [address], [place] [address] Jul, [facility] [place] [address] [id number] [place] [id number] Jun, [facility] [address] [id number] [address] [place] [address], [place] [address] Jun, [facility] [address] [id number] [address] [place] [address], [place] [address] Jun, [facility] [place] [address] [id number] [place] [id number] Jun, [facility] [place] [address] [id number] [place] [id number] May, [facility] [address] [id number] [address] [place] [address], [place] [address] May, [facility] [address] [id number] [address] [place] [address], [place] [address] Apr, [facility] [place] [address] [id number] [place] [id number] Mar, [facility] [address] [id number] [address] [place] [address], [place] [address] Mar, [facility] [address] [id number] [address] [place] [address], [place] [address] Mar, [facility] [address] [facility] [id number] [address] [place] [address], [place] [address] Mar, [facility] [place] [address] [id number] [place] [id number] Mar, [facility] [place] [address] [id number] [place] [id number] Feb, [facility] [address] [id number] [address] [place] [address] Feb, [facility] [place] [address] [id number] [place] [id number] Feb, [facility] [address] [id number] [address] [place] [address], [place] [address] Feb, [facility] [place] [address] [id number] [place] [id number] Feb, [facility] [address] [id number] [address] [place] [address], [place] [address] Feb, [facility] [place] [address] [id number] [place] [id number] Jan, [facility] [place] [address] [id number] [place] [id number] Dec, [facility] [place] [address] [id number] [place] [id number] Nov, [facility] [place] [address] [id number] [place] [id number] Oct, [facility] [place] [address] [id number] [place] [id number] Oct, [facility] [place] [address] [id number] [place] [id number] Oct, [facility] [place] [address] [id number] [place] [id number] Oct, [facility] [address] [id number] [address] [place] [address] September, [facility] [place] [address] [id number] [place] [id number] September, [facility] [address] [facility] [id number] [address] [place] [address] Aug, [facility] [place] [address] [id number] [place] [id number] Aug, [facility] [place] [address] [id number] [place] [id number] Jun, [facility] [place] [address] [id number] [place] [id number] Jun, [facility] [place] [address] [id number] [place] [id number] Feb, [facility] [address] [facility] [id number] [address] [place] [address], [place] [address] Feb, [facility] [place] [address] [id number] [place] [id number] Feb, [facility] [place] [address] [id number] [place] [id number] Dec, [facility] [address] [facility] [id number] [address] [place] [address] Dec, [facility] [place] [address] [id number] [place] [id number] Dec, [facility] [place] [address] [id number] [place] [id number] Aug, [facility] [address] [facility] [id number] [place] [id number] May, [facility] [address] [facility] [id number] [place] [id number] May, [facility] [address] [facility] [id number] [address] [place] [address] Apr, [facility] [address] [facility] [id number] [address] [place] [address] September, [facility] [address] [facility] [id number] [address] [place] [address] Apr, [facility] [address] [facility] [id number] [address] [place] [address] Apr, [facility] [address] [facility] [id number] [address] [place] [address] Apr, IMMUNIZATIONS Vaccine Route Administration Date Status FLU Vaccine (History) Unknown Mar 11, 2014 Administer ed SOCIAL HISTORY Never Assessed REASON FOR VISIT [...]
--- OUTSIDE RECORDS SUMMARY | 2019-07-19 23:15 | XMS REPORT ---
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 Name Role Phone ELLEN DISLA Unavailable PROBLEMS Type Condition ICD9-CM Code LAN09-YU Code Onset Dates Condition S tatus SNOMED Code Problem Other and unspecified hyperlipidemia E78.5 Active 42841766 Problem Type 2 diabetes mellitus wit h other specified complication, without long-term current use of insulin E11.69 Active 63901834 Problem Chronic airway obstruction, not elsewhere classified J44.9 Active 77669443 Problem CAD (coronary artery disease) I25.10 Active 02100277 ALLERGIES Substance Reaction Event Type Date Status Bactrim hives Drug Allergy Jun, Active ENCOUNTERS Encounter Location Date Diagnosis [id number] [place] [address], S [id number] Aug, Bilateral impacted cerumen H61.23 [place] [id number] [place] [address], S [id number] Aug, Bilateral impacted cerumen H61.23 ; CAD (coronary artery disease) I25.10 and Other and unspecified hyperlipidemia E78.5 [id number] [place], [place] [address]Privy S [id number] Jun, Encounter for Medicare annual wellness e xam Z00.00 ; Type 2 diabetes mellitus with other specified complication, without long-term current use of insulin E11.69 ; Chronic airway obstruction, not elsewhere classified J44.9 ; CAD (coronary artery disease) I25.10 ; Other and unspecified hyperlipidemia E78.5 and Breast cancer screening Z12.31 [address] [place] [address], S [id number] Jun, DM w/o complication type II E11.9 ; Wood Router 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, not elsewhere classified J44.9 ; CAD (coronary artery disease) I25.10 and Vertigo R42 [facility] [place] [address] [id number] [place] [id number] 09 Feb, 2018 Encounter for immunization Z23 [facility] [place] [address] [id number] [place] [id number] Jan, DM w/o complication type II E11.9 and Ch ronic airway obstruction, not elsewhere classified J44.9 [facility] [place] [address] [id number] [place] [id number] Dec, CAD (coronary artery disease) I25.10 [facility] [place] [address] [id number] [place] [id number] Oct, DM w/o complication type II E11.9 ; Wood Router 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, not elsewhere classified J44.9 and CAD (coronary artery disease) I25.10 [facility] [place] [address] [id number] [place] [id number] Jul, DM w/o complication type II E11.9 ; Wood Router 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, not elsewhere classified J44.9 and Infective urethritis N34.2 [facility] [place] [address] [id number] [place] [id number] Jun, Syncope and collapse R55 [facility] [place] [address] [id number] [place] [id number] Jun, [facility] [place] [address] [id number] [place] [id number] May, Bronchitis J40 [facility] [place] [address] [id number] [place] [id number] May, [facility] [place] [address] [id number] [place] [id number] May, [facility] [place] [address] [id number] [place] [id number] Apr, DM w/o complication type II E11.9 [facility] [place] [address] [id number] [place] [id number] Mar, DM w/o complication type II E11.9 ; Wood Router arvi airway obstruction, not elsewhere classified J44.9 ; Dysuria R30.0 ; Tinea pedis of right foot B35.3 and Encounter for immunization Z23 [facility] [place] [address] [id number] [place] [id number] Feb, Medicare welcome exam Z00.00 [facility] [place] [address] [id number] [place] [id number] 07 Jan, 2017 Chronic airway obstruction, not elsewher e classified J44.9 [facility] [place] [address] [id number] [place] [id number] Dec, [facility] [place] [address] [id number] [place] [id number] Dec, DM w/o complication type II E11.9 ; Wood Router 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, not elsewhere classified J44.9 and Acute cystitis with hematuria N30.01 [facility] [place] [address] [id number] [place] [id number] Oct, Encounter for screening for malignant ne oplasm of colon Z12.11 [facility] [place] [address] [id number] [place] [id number] Oct, Medicare welcome exam Z00.00 [facility] [place] [address] [id number] [place] [id number] September, Medicare welcome exam Z00.00 and Encount er for immunization Z23 [facility] [place] [address] [id number] [place] [id number] September, Bronchitis J40 [facility] [place] [address] [id number] [place] [id number] September, Bronchitis J40 [facility] [place] [address] [id number] [place] [id number] September, Other and unspecified hyperlipidemia E78 .5 [facility] [place] [address] [id number] [place] [id number] Aug, DM w/o complication type II E11.9 ; Wood Router 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, not elsewhere classified J44.9 and Other and unspecified hyperlipidemia E78.5 [facility] [place] [address] [id number] [place] [id number] May, DM w/o complication type II E11.9 and Ch ronic airway obstruction, not elsewhere classified J44.9 [facility] [place] [address] [id number] [place] [id number] Apr, Acute cystitis with hematuria N30.01 [facility] [place] [address] [id number] [place] [id number] Feb, DM w/o complication type II E11.9 [facility] [place] [address] [id number] [place] [id number] Feb, Chronic airway obstruction, not elsewher e classified J44.9 ; DM w/o complication type II E11.9 and Encounter for immunization Z23 [facility] [place] [address] [id number] [place] [id number] Dec, [facility] [place] [address] [id number] [place] [id number] Nov, Chronic airway obstruction, not elsewher e classified J44.9 [facility] [address] [id number] [place] [id number] Oct, DM w/o complication type II E11.9 [facility] [address] [facility] [id number] [address] [place] [address] Oct, [facility] [place] [address] [id number] [place] [id number] Aug, Chronic airway obstruction, not elsewher e classified J44.9 and DM w/o complication type II E11.9 [facility] [place] [address] [id number] [place] [id number] Aug, Chronic airway obstruction, not elsewher e classified J44.9 [facility] [address] [id number] [place] [id number] Aug, DM w/o complication type II E11.9 and Ch ronic airway obstruction, not elsewhere classified J44.9 [facility] [place] [address] [id number] [place] [id number] Jul, [facility] [address] [id number] [place] [id number] Jul, DM w/o complication type II E11.9 [facility] [place] [address] [id number] [place] [id number] Jun, [facility] [place] [address] [id number] [place] [id number] Jun, [facility] [place] [address] [id number] [place] [id number] Jun, Chronic airway obstruction, not elsewher e classified J44.9 ; DM w/o complication type II E11.9 and Other and unspecified hyperlipidemia E78.5 [facility] [address] [id number] [place] [id number] Jun, CAD (coronary artery disease) I25.10 and Dizziness R42 [facility] [place] [address] [id number] [place] [id number] Jun, Bronchitis J40 [facility] [place] [address] [facility] [id number] [place] [id number] May, Hematoma T14.8 [facility] [place] [address] [facility] [id number] [place] [id number] May, [facility] [address] [facility] [id number] [place] [id number] May, Bronchitis J40 [facility] [place] [address] [facility] [id number] [place] [id number] Apr, Bronchitis J40 [facility] [address] [facility] [id number] [address] [place] [address] Apr, [facility] [place] [address] [facility] [id number] [place] [id number] Mar, [facility] [address] [id number] [place] [id number] Mar, [facility] [place] [address] [facility] [id number] [place] [id number] Mar, [facility] [address] [id number] [id number] Mar, [facility] [place] [address] [facility] [id number] [place] [id number] Mar, SOB (shortness of breath) R06.02 [facility] [address] [id number] [place] [id number] Feb, Urinary tract infection, site not specif ied N39.0 and Hematuria, unspecified R31.9 [facility] [place] [address] [id number] [place] [id number] Feb, DM w/o complication type II E11.9 ; Enco unter for immunization Z23 and Chronic airway obstruction, not elsewhere classified J44.9 [facility] [address] [facility] [id number] [place] [id number] Jan, [facility] [address] [facility] [id number] [place] [id number] Jan, [facility] [address] [id number] [place] [id number] Dec, [facility] [place] [address] [id number] [place] [id number] Dec, [facility] [place] [address] [id number] [place] [id number] Dec, [facility] [place] [address] [id number] [place] [id number] Dec, [facility] [place] [address] [id number] [place] [id number] Dec, Blood in the stool 578.1 [facility] [place] [address] [id number] [place] [id number] Nov, [facility] [place] [address] [id number] [place] [id number] Nov, Colon cancer screening V76.51 [facility] [place] [address] [id number] [place] [id number] Nov, Vertigo 780.4 [facility] [place] [address] [id number] [place] [id number] Nov, Routine gynecological examination V72.31 ; Pap test, as part of routine gynecological examination V76.2 ; Breast cancer screening V76.10 ; Postmenopausal V49.81 and Colon cancer screening V76.51 [facility] [address] [facility] [id number] [place] [id number] Nov, [facility] [address] [facility] [id number] [place] [id number] Nov, [facility] [address] [place] [id number] [address] [place] [address] Nov, [facility] [address] [id number] [place] [address], [place] [id number] Oct, Diabetes 250.00 ; COPD (chronic obstruct misha pulmonary disease) 496 and GERD (gastroesophageal reflux disease) 530.81 [facility] [address] [place] [id number] [address] [place] [address] Oct, [facility] [address] [place] [id number] [place] [id number] Oct, [facility] [id number] [place] [id number] Oct, [facility] [address] [place] [id number] [place] [address], [place] [id number] Oct, Reflux 530.81 [facility] [address] [place] [id number] [address] [place] [address] Oct, [facility] [id number] [place] [id number] Oct, [facility] [id number] [place] [id number] Oct, [facility] [address] [place] [id number] [place] [address], [place] [id number] Oct, Dysuria 788.1 [facility] [address] [place] [id number] [place] [id number] Oct, Dysuria 788.1 [facility] [address] [place] [id number] [address] [place] [address] September, [facility] [address] [place] [id number] [place] [id number] September, Diabetes 250.00 and COPD (chronic obstru ctive pulmonary disease) 496 [facility] [place] [address] [id number] [place] [id number] September, [facility] [place] [address] [id number] [place] [id number] September, [facility] [address] [id number] [place] [id number] September, [facility] [place] [address] [id number] [place] [id number] Aug, Osteoarthritis 715.90 ; Diabetes 250.00 and COPD (chronic obstructive pulmonary disease) 496 [facility] [place] [address] [id number] [place] [id number] Aug, Pure hypercholesterolemia 272.0 ; Essent ial hypertension, benign 401.1 and Loss of weight 783.21 [facility] [address] [place] [id number] [address] [place] [address] Aug, [facility] [address] [facility] [id number] [address] [place] [address] Aug, [facility] [place] [address] [facility] [id number] [place] [id number] Jul, [facility] [address] [facility] [id number] [address] [place] [address] Jul, [facility] [address] [place] [id number] [address] [place] [id number] Jun, [facility] [address] [facility] [id number] [address] [place] [address] Jun, [facility] [place] [address] [facility] [id number] [place] [id number] Jun, [facility] [address] [facility] [id number] [address] [place] [address] May, [facility] [place] [address] [id number] [place] [id number] May, [facility] [place] [address] [id number] [place] [id number] Apr, [facility] [address] [id number] [address] [address] Apr, [facility] [place] [address] [id number] [place] [id number] Apr, [facility] [address] [id number] [address] [place] [address], [place] [address] Apr, [facility] [place] [address] [id number] [place] [id number] Apr, [facility] [address] [id number] [address] [place] [address], [place] [address] Apr, [facility] [place] [address] [id number] [place] [id number] Feb, [facility] [address] [id number] [address] [place] [address], [place] [address] Feb, [facility] [place] [address] [id number] [place] [id number] Feb, [facility] [address] [id number] [address] [place] [address], [place] [address] Feb, [facility] [address] [id number] [address] [place] [address], [place] [address] Jan, [facility] [place] [address] [id number] [place] [id number] Jan, [facility] [address] [id number] [address] [place] [address], [place] [address] Jan, [facility] [place] [address] [id number] [place] [id number] Jan, [facility] [address] [id number] [address] [place] [address], [place] [address] Jan, [facility] [address] [id number] [address] [place] [address], [place] [address] Dec, [facility] [address] [id number] [address] [place] [address], [place] [address] Dec, [facility] [address] [id number] [place] [id number] September, [facility] [address] [id number] [address] [place] [address], [place] [address] September, [facility] [address] [id number] [address] [place] [address], [place] [address] September, [facility] [place] [address] [id number] [place] [id number] September, [facility] [address] [id number] [place] [id number] September, [facility] [address] [id number] [address] [place] [address], [place] [address] September, [facility] [address] [id number] [place] [id number] Aug, [facility] [address] [id number] [address] [place] [address], [place] [address] Aug, [facility] [address] [id number] [address] [place] [address], [place] [address] Jul, [facility] [address] [id number] [place] [id number] Jul, [facility] [address] [id number] [address] [place] [address], [place] [address] Jul, [facility] [address] [id number] [place] S [id number] Jun, [facility] [address] [id number] [address] [place] [address], [place] [address] Jun, [facility] [address] [id number] [address] [place] [address], [place] [address] Jun, [facility] [address] [id number] [place] [id number] Jun, [facility] [address] [id number] [place] [id number] May, [facility] [address] [id number] [address] [place] [address], [place] [address] May, [facility] [address] [id number] [address] [place] [address] Apr, [facility] [address] [id number] [place] [id number] Mar, [facility] [address] [id number] [address] [place] [address] Mar, [facility] [address] [id number] [address] [place] [address], [place] [address] Mar, [facility] [address] [id number] [address] [place] [address] Mar, [facility] [address] [id number] [place] [id number] Mar, [facility] [place] [address] [id number] [place] S [id number] Feb, [facility] [address] [facility] [id number] [address] [place] [address] Feb, [facility] [place] [address] [id number] [place] [id number] Feb, [facility] [address] [facility] [id number] [address] [place] [address] Feb, [facility] [place] [address] [id number] [place] [id number] Feb, [facility] [address] [id number] [address] [place] [address], [place] [address] Feb, [facility] [place] [address] [id number] [place] [id number] Jan, [facility] [place] [address] [id number] [place] S [id number] Dec, [facility] [place] [address] [id number] [place] [id number] Nov, [facility] [place] [address] [id number] [place] [id number] Oct, [facility] [place] [address] [id number] [place] [id number] Oct, [facility] [place] [address] [id number] [place] [id number] Oct, [facility] [place] [address] [id number] [place] [id number] Oct, [facility] [address] [facility] [id number] [address] [place] [address], [place] [address] September, [facility] [place] [address] [id number] [place] [id number] September, [facility] [address] [id number] [address] [place] [address], [place] [address] Aug, [facility] [place] [address] [id number] [place] [id number] Aug, [facility] [place] [address] [id number] [place] [id number] Jun, [facility] [place] [address] [id number] [place], [place] S [id number] Jun, [facility] [place] [address] [id number] [place] [id number] Feb, [facility] [place] [facility] [address] [facility] [id number] [address] [place] [address] Feb, [facility] [place] [address] [id number] [place] [id number] Feb, [facility] [place] [address] [id number] [place] [id number] Dec, [facility] [place] [facility] [address] [facility] [id number] [address] [place] [address], [place] [address] Dec, [facility] [place] [address] [id number] [place], [place] S [id number] Dec, [facility] [address] [id number] [place] [id number] Aug, [facility] [address] [id number] [place] [id number] May, [facility] [address] [id number] [place] [id number] May, [facility] [address] [facility] [id number] [address] [place] [address] Apr, [facility] [address] [facility] [id number] [address] [place] [address] September, [facility] [address] [facility] [id number] [address] [place] [address] Apr, [facility] [address] [facility] [id number] [address] [place] [address] Apr, [facility] [address] [facility] [id number] [address] [place] [address] Apr, IMMUNIZATIONS No Known Immunizations SOCIAL HISTORY Never Assessed REASON FOR VISIT Diabetic follow up, have not seen since Jan. verónica Cordero PLAN OF CARE Activity Details Follow Up 3 Months Reason:dm VITAL SIGNS Height 66 in 2018-06-22 Weight 131.8 lbs 2018-06-22 Temperature 98.1 degrees Fahrenheit 2018-06-22 Heart Rate 94 bpm 2018-06-22 Respiratory Rate 20 2018-06-22 BMI 21.27 kg/m2 2018-06-22 Blood pressure systolic 130 mmHg 2018-06-22 Blood pressure diastolic 60 mmHg 2018-06-22 MEDICATIONS Medication Instructions Dosage Frequency Start Date End Date Duration S tatus Potassium Chloride ER 10 MEQ Orally Once a day 1 tablet with food 24h Active Magnesium Oxide 400 mg Orally 2 times a day 1 tablet as needed 12h Active TiberiumTouch Ultra Test Test Strips as directed Oct, Active Accolate 20 MG TAKE ONE (1) TABLET BY MOUTH TWICE DAILY... Active Omeprazole 40 MG TAKE ONE (1) CAPSULE BY MOUTH ONCE DAILY... Active Albuterol Sulfate (2.5 MG/3ML) 0.083% Inhalation Three times a day pr n 3 ml Active Ventolin HFA 108 (90 Base) MCG/ACT INHALE 2 PUFF S EVERY 4 HOURS NEEDED... Active Spiriva HandiHaler 18 MCG Inhalation Once a day 1 puff 24h Active Aspirin Adult Low Dose 81 MG Orally Once a day 1 tablet 24h Active Symbicort 160-4.5 MCG/ACT INHALE 2 PUFFS BY MOUTH TWICE DAILY... . 12h Active Metformin HCl 500 mg Orally twice a day 2 1/2 tabs in AM an d 1 1/2 tablets in pm 12h Active Meclizine HCl 25 mg Orally 3 times a day 1 tablet as needed for d izziness 8h 28 Nov, 2014 Active Pravastatin Sodium 20 mg Orally Once a day 1 tablet 24h 30 Active RESULTS Name Result Date Reference Range A1C (IN HOUSE) 2018-06-22 A1C IN HOUSE 6.4 4.3 - 5.6 % Previous A1c 6.3 Lot [id number] Exp date 03/2020 PROCEDURES Procedure Date Ordered Result Body Site [facility] VISIT ESTABLISHED PATIENT Jun 22, 2018 GLYCATED HEMOGLOBIN TEST Jun 22, 2018 INSTRUCTIONS MEDICATIONS ADMINISTERED No Known Medications MEDICAL [...]
--- OUTSIDE RECORDS SUMMARY | 2019-07-19 23:15 | XMS REPORT ---
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 Name Role Phone ELLEN DISLA Unavailable PROBLEMS Type Condition ICD9-CM Code BUS03-JQ Code Onset Dates Condition S tatus SNOMED Code Problem Other and unspecified hyperlipidemia E78.5 Active 84175883 Problem Type 2 diabetes mellitus wit h other specified complication, without long-term current use of insulin E11.69 Active 07406967 Problem Chronic airway obstruction, not elsewhere classified J44.9 Active 82366268 Problem CAD (coronary artery disease) I25.10 Active [id number] ALLERGIES No Information ENCOUNTERS Encounter Location Date Diagnosis [place] [id number] [place] [address] S [id number] Aug, Bilateral impacted cerumen H61.23 [place] [id number] [place] [address] S [id number] Aug, Bilateral impacted cerumen H61.23 ; CAD (coronary artery disease) I25.10 and Other and unspecified hyperlipidemia E78.[id number] [place] [address] S [id number] Jun, Encounter for Medicare annual wellness e xam Z00.00 ; Type 2 diabetes mellitus with other specified complication, without long-term current use of insulin E11.69 ; Chronic airway obstruction, not elsewhere classified J44.9 ; CAD (coronary artery disease) I25.10 ; Other and unspecified hyperlipidemia E78.5 and Breast cancer screening Z12.31 [place] [id number] [place] [address], S [id number] 11 Jun, 2018 DM w/o complication type II E11.9 ; Rivet Sorter 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, not elsewhere classified J44.9 ; CAD (coronary artery disease) I25.10 and Vertigo R42 [place] [id number] [place] [id number] Feb, Encounter for immunization Z23 [facility] [place] [address] [id number] [place] [id number] Jan, DM w/o complication type II E11.9 and Ch ronic airway obstruction, not elsewhere classified J44.9 [facility] [place] [address] [id number] [place] [id number] Dec, CAD (coronary artery disease) I25.10 [facility] [place] [address] [id number] [place] [id number] Oct, DM w/o complication type II E11.9 ; Rivet Sorter 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, not elsewhere classified J44.9 and CAD (coronary artery disease) I25.10 [facility] [place] [address] [id number] [place] [id number] Jul, DM w/o complication type II E11.9 ; Rivet Sorter 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, not elsewhere classified J44.9 and Infective urethritis N34.2 [facility] [place] [address] [id number] [place] [id number] Jun, Syncope and collapse R55 [facility] [place] [address] [id number] [place] [id number] Jun, [facility] [place] [address] [id number] [place] [id number] May, Bronchitis J40 [facility] [place] [address] [id number] [place] [id number] May, [facility] [place] [address] [id number] [place] [id number] May, [facility] [place] [address] [id number] [place] [id number] Apr, DM w/o complication type II E11.9 [facility] [place] [address] [id number] [place] [id number] Mar, DM w/o complication type II E11.9 ; Rivet Sorter 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, not elsewhere classified J44.9 ; Dysuria R30.0 ; Tinea pedis of right foot B35.3 and Encounter for immunization Z23 [facility] [place] [address] [id number] [place] [id number] Feb, Medicare welcome exam Z00.00 [facility] [place] [address] [id number] [place] [id number] Jan, Chronic airway obstruction, not elsewher e classified J44.9 [facility] [place] [address] [id number] [place] [id number] Dec, [facility] [place] [address] [id number] [place] [id number] Dec, DM w/o complication type II E11.9 ; Rivet Sorter 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, not elsewhere classified J44.9 and Acute cystitis with hematuria N30.01 [facility] [place] [address] [id number] [place] [id number] Oct, Encounter for screening for malignant ne oplasm of colon Z12.11 [facility] [address] [id number] [place] [id number] Oct, Medicare welcome exam Z00.00 [facility] [place] [address] [id number] [place] [id number] September, Medicare welcome exam Z00.00 and Encount er for immunization Z23 [facility] [place] [address] [id number] [place] [id number] September, Bronchitis J40 [facility] [place] [address] [id number] [place] [id number] September, Bronchitis J40 [facility] [place] [address] [id number] [place] S [id number] September, Other and unspecified hyperlipidemia E78 .5 [facility] [place] [address] [id number] [place] [id number] Aug, DM w/o complication type II E11.9 ; Rivet Sorter 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, not elsewhere classified J44.9 and Other and unspecified hyperlipidemia E78.5 [facility] [place] [address] [id number] [place] [id number] May, DM w/o complication type II E11.9 and Ch ronic airway obstruction, not elsewhere classified J44.9 [facility] [place] [address] [id number] [place] [id number] Apr, Acute cystitis with hematuria N30.01 [facility] [place] [address] [id number] [place] [id number] Feb, DM w/o complication type II E11.9 [facility] [place] [address] [id number] [place] [id number] Feb, Chronic airway obstruction, not elsewher e classified J44.9 ; DM w/o complication type II E11.9 and Encounter for immunization Z23 [facility] [place] [address] [id number] [place] [id number] Dec, [facility] [place] [address] [id number] [place] [id number] Nov, Chronic airway obstruction, not elsewher e classified J44.9 [facility] [place] [address] [id number] [place] [id number] Oct, DM w/o complication type II E11.9 [facility] [address] [facility] [id number] [address] [address] Oct, [facility] [place] [address] [id number] [place] [id number] Aug, Chronic airway obstruction, not elsewher e classified J44.9 and DM w/o complication type II E11.9 [facility] [place] [address] [id number] [place] [id number] Aug, Chronic airway obstruction, not elsewher e classified J44.9 [facility] [place] [address] [id number] [place] S [id number] Aug, DM w/o complication type II E11.9 and Ch ronic airway obstruction, not elsewhere classified J44.9 [facility] [place] [address] [id number] [place] [id number] Jul, [facility] [place] [address] [id number] [place] [id number] Jul, DM w/o complication type II E11.9 [facility] [place] [address] [id number] [place] [id number] Jun, [facility] [place] [address] [id number] [place] [id number] Jun, [facility] [place] [address] [id number] [place] [id number] Jun, Chronic airway obstruction, not elsewher e classified J44.9 ; DM w/o complication type II E11.9 and Other and unspecified hyperlipidemia E78.5 [facility] [place] [address] [id number] [place] [id number] Jun, CAD (coronary artery disease) I25.10 and Dizziness R42 [facility] [place] [address] [id number] [place] [id number] Jun, Bronchitis J40 [facility] [place] [address] [place] [address] [id number] [place] [id number] May, Hematoma T14.8 [facility] [place] [address] [place] [id number] [place] [address], [place] [id number] May, [facility] [place] [address] [address] [id number] [place] [id number] May, Bronchitis J40 [facility] [place] [address] [id number] [place] [id number] Apr, Bronchitis J40 [facility] [address] [facility] [id number] [place] [address] Apr, [facility] [place] [address] [place] [address] [id number] [place] [id number] Mar, [facility] [address] [id number] [id number] Mar, [facility] [place] [address] [id number] [place] [id number] Mar, [facility] [address] [id number] [place] [id number] Mar, [facility] [place] [address] [id number] [place] [id number] Mar, SOB (shortness of breath) R06.02 [facility] [place] [address] [id number] [place] [id number] Feb, Urinary tract infection, site not specif ied N39.0 and Hematuria, unspecified R31.9 [facility] [address] [id number] [place] [id number] Feb, DM w/o complication type II E11.9 ; Enco unter for immunization Z23 and Chronic airway obstruction, not elsewhere classified J44.9 [facility] [address] [facility] [id number] [facility] [place] [id number] Jan, [facility] [address] [facility] [id number] [facility] [place] [id number] Jan, [facility] [address] [id number] [place] [id number] Dec, [facility] [address] [id number] [place] [id number] Dec, [facility] [place] [address] [id number] [place] [id number] Dec, [facility] [place] [address] [id number] [place] S [id number] Dec, [facility] [place] [address] [id number] [place] S [id number] Dec, Blood in the stool 578.1 [facility] [place] [address] [id number] [place] [id number] Nov, [facility] [place] [address] [id number] [place] S [id number] Nov, Colon cancer screening V76.51 [facility] [address] [id number] [place] [id number] Nov, Vertigo 780.4 [facility] [place] [address] [id number] [place] S [id number] Nov, Routine gynecological examination V72.31 ; Pap test, as part of routine gynecological examination V76.2 ; Breast cancer screening V76.10 ; Postmenopausal V49.81 and Colon cancer screening V76.51 [facility] [address] [id number] [place] [id number] Nov, [facility] [place] [address] [facility] [id number] [place] [id number] Nov, [facility] [address] [facility] [id number] [address] [place] [address] Nov, [facility] [place] [address] [facility] [id number] [place] [id number] Oct, Diabetes 250.00 ; COPD (chronic obstruct misha pulmonary disease) 496 and GERD (gastroesophageal reflux disease) 530.81 [facility] [address] [facility] [id number] [address] [place] [address] Oct, [facility] [place] [address] [facility] [id number] [place] [id number] Oct, [facility] [place] [address] [place] [address] [id number] [place] S [id number] Oct, [facility] [place] [address] [facility] [id number] [place] [id number] Oct, Reflux 530.81 [facility] [address] [facility] [id number] [address] [place] [address] Oct, [facility] [place] [address] [facility] [id number] [place] [id number] Oct, [facility] [place] [address] [facility] [id number] [place] [id number] Oct, [facility] [place] [address] [address] [id number] [place] [id number] Oct, Dysuria 788.1 [facility] [place] [address] [facility] [id number] [place] [id number] Oct, Dysuria 788.1 [facility] [address] [facility] [id number] [address] [place] [address] September, [facility] [place] [address] [facility] [id number] [place] [id number] September, Diabetes 250.00 and COPD (chronic obstru ctive pulmonary disease) 496 [facility] [place] [address] [facility] [id number] [place] [id number] September, [facility] [place] [address] [id number] [place] [id number] September, [facility] [address] [facility] [id number] [place] [id number] September, [facility] [place] [address] [id number] [place] [id number] Aug, Osteoarthritis 715.90 ; Diabetes 250.00 and COPD (chronic obstructive pulmonary disease) 496 [facility] [place] [address] [id number] [place] [id number] Aug, Pure hypercholesterolemia 272.0 ; Essent ial hypertension, benign 401.1 and Loss of weight 783.21 [facility] [address] [facility] [id number] [address] [place] [address] Aug, [facility] [address] [facility] [id number] [address] [place] [address] Aug, [facility] [place] [address] [facility] [id number] [place] [id number] Jul, [facility] [address] [facility] [id number] [address] [place] [address] Jul, [facility] [address] [facility] [id number] [address] [place] [address] Jun, [facility] [address] [facility] [id number] [address] [place] [address] Jun, [facility] [place] [address] [facility] [id number] [place] [id number] Jun, [facility] [place] [facility] [address] [facility] [id number] [address] [place] [address] May, [facility] [place] [address] [id number] [place] [id number] May, [facility] [place] [address] [facility] [id number] [place] [id number] Apr, [facility] [address] [facility] [id number] [address] [place] [address] Apr, [facility] [place] [address] [id number] [place] [id number] Apr, [facility] [address] [id number] [address] [place] [address], [place] [address] Apr, [facility] [place] [address] [id number] [place] [id number] Apr, [facility] [address] [id number] [address] [place] [address], [place] [address] Apr, [facility] [place] [address] [id number] [place] [id number] Feb, [facility] [address] [id number] [address] [place] [address], [place] [address] Feb, [facility] [place] [address] [id number] [place] [id number] Feb, [facility] [address] [id number] [address] [place] [address], [place] [address] Feb, [facility] [address] [id number] [address] [place] [address], [place] [address] Jan, [facility] [place] [address] [id number] [place] [id number] Jan, [facility] [address] [id number] [address] [place] [address], [place] [address] Jan, [facility] [place] [address] [id number] [place] [id number] Jan, [facility] [address] [id number] [address] [place] [address], [place] [address] Jan, [facility] [address] [id number] [address] [place] [address], [place] [address] Dec, [facility] [address] [id number] [address] [place] [address], [place] [address] Dec, [facility] [place] [address] [id number] [place] [id number] September, [facility] [address] [id number] [facility] [place] [address] September, [facility] [address] [id number] [address] [place] [address], [place] [address] September, [facility] [place] [address] [id number] [place] [id number] September, [facility] [place] [address] [id number] [place] [id number] September, [facility] [address] [id number] [facility] [place] [address] September, [facility] [place] [address] [id number] [place] [id number] Aug, [facility] [address] [id number] [address] [place] [address], [place] [address] Aug, [facility] [address] [id number] [address] [place] [address], [place] [address] Jul, [facility] [place] [address] [id number] [place] S [id number] Jul, [facility] [address] [id number] [address] [place] [address], [place] [address] Jul, [facility] [place] [address] [id number] [place] [id number] Jun, [facility] [address] [id number] [address] [place] [address], [place] [address] Jun, [facility] [address] [id number] [address] [place] [address], [place] [address] Jun, [facility] [place] [address] [id number] [place] [id number] Jun, [facility] [place] [address] [id number] [place] [id number] May, [facility] [address] [id number] [address] [place] [address], [place] [address] May, [facility] [address] [id number] [address] [place] [address] Apr, [facility] [place] [address] [id number] [place] [id number] Mar, [facility] [address] [facility] [id number] [address] [place] [address] Mar, [facility] [address] [facility] [id number] [address] [place] [address] Mar, [facility] [address] [facility] [id number] [address] [place] [address] Mar, [facility] [place] [address] [id number] [place] [id number] Mar, [facility] [place] [address] [id number] [place] [id number] Feb, [facility] [address] [facility] [id number] [address] [place] [address] Feb, [facility] [place] [address] [id number] [place] [id number] Feb, [facility] [address] [facility] [id number] [address] [place] [address] Feb, [facility] [place] [address] [id number] [place] [id number] Feb, [facility] [address] [facility] [id number] [address] [place] [address] Feb, [facility] [place] [address] [id number] [place] [id number] Jan, [facility] [place] [address] [id number] [place] [id number] Dec, [facility] [place] [address] [id number] [place] [id number] Nov, [facility] [place] [address] [id number] [place] [id number] Oct, [facility] [place] [address] [id number] [place] [id number] Oct, [facility] [place] [address] [id number] [place] [id number] Oct, [facility] [place] [address] [id number] [place] [id number] Oct, [facility] [address] [id number] [address] [place] [address] September, [facility] [place] [address] [id number] [place] [id number] September, [facility] [place] [facility] [address] [id number] [address] [place] [address], [place] [address] Aug, [facility] [place] [address] [id number] [place] S [id number] Aug, [facility] [place] [address] [id number] [place] S [id number] Jun, [facility] [place] [address] [id number] [place] [id number] Jun, [facility] [place] [address] [id number] [place] S [id number] Feb, [facility] [place] [facility] [address] [id number] [address] [place] [address], [place] [address] Feb, [facility] [place] [address] [id number] [place] [id number] Feb, [facility] [place] [address] [id number] [place] S [id number] Dec, [facility] [place] [facility] [address] [id number] [address] [place] [address], [place] [address] Dec, [facility] [place] [address] [id number] [place] [id number] Dec, [facility] [place] [address] [id number] [place] [id number] Aug, [facility] [place] [address] [id number] [place] [id number] May, [facility] [place] [address] [id number] [place] [id number] May, [facility] [place] [facility] [address] [id number] [address] [place] [address] Apr, [facility] [address] [facility] [id number] [address] [place] [address] September, [facility] [address] [facility] [id number] [address] [place] [address] Apr, [facility] [address] [facility] [id number] [address] [place] [address] Apr, [facility] [address] [facility] [id number] [address] [place] [address] Apr, IMMUNIZATIONS No Known Immunizations SOCIAL HISTORY Never Assessed REASON FOR VISIT PLAN OF CARE VITAL SIGNS Height 66 in 2014-01-12 Weight 156.8 lbs 2014-01-12 Temperature 98.2 degrees Fahrenheit 2014-01-12 Heart Rate 80 bpm 2014-01-12 Respiratory Rate 20 2014-01-12 Blood pressure systolic 138 mmHg 2014-01-12 Blood pressure diastolic 82 mmHg 2014-01-12 MEDICATIONS No Known Medications RESULTS No Results PROCEDURES Procedure Date Ordered Result Body Site LIPID PANEL Jan 12, 2014 COMPREHEN METABOLIC PANEL Jan 12, 2014 VENIPUNCT, ROUTINE* Jan 12, 2014 INSTRUCTIONS MEDICATIONS ADMINISTERED No Known Medications MEDICAL [...]
--- OUTSIDE RECORDS SUMMARY | 2019-07-19 23:16 | XMS REPORT ---
Author Author Zoie Abebe Doctor Organization [facility] Address Unknown Phone Unavailable Care Team Providers Care Scale Technician Name Role Phone Migration, Doctor Unavailable Unavailable PROBLEMS Type Condition ICD9-CM Code DDL58-BC Code Onset Dates Condition S tatus SNOMED Code Problem Other and unspecified hyperlipidemia E78.5 Active 61738216 Problem Type 2 diabetes mellitus wit h other specified complication, without long-term current use of insulin E11.69 Active 79577230 Problem Chronic airway obstruction, not elsewhere classified J44.9 Active 17084951 Problem CAD (coronary artery disease) I25.10 Active 92780255 ALLERGIES No Information ENCOUNTERS Encounter Location Date Diagnosis [facility] [id number] [place] [id number] Aug, Bilateral impacted cerumen H61.23 [facility] [id number] [place] [address], [place] [id number] Aug, Bilateral impacted cerumen H61.23 ; CAD (coronary artery disease) I25.10 and Other and unspecified hyperlipidemia E78.5 [facility] [id number] [place] [id number] Jun, Encounter for Medicare annual wellness e xam Z00.00 ; Type 2 diabetes mellitus with other specified complication, without long-term current use of insulin E11.69 ; Chronic airway obstruction, not elsewhere classified J44.9 ; CAD (coronary artery disease) I25.10 ; Other and unspecified hyperlipidemia E78.5 and Breast cancer screening Z12.31 [facility] [id number] [place] [id number] 11 Jun, 2018 DM w/o complication type II E11.9 ; 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, not elsewhere 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 J44.9 ; CAD (coronary artery disease) I25.10 and Vertigo R42 [facility] [id number] [place] [id number] Feb, Encounter for immunization Z23 [facility] [place] [address] [id number] [place] [id number] Jan, DM w/o complication type II E11.9 and Ch ronic airway obstruction, not elsewhere classified J44.9 [facility] [place] [address] [id number] [place] [id number] Dec, CAD (coronary artery disease) I25.10 [facility] [place] [address] [id number] [place] [id number] Oct, DM w/o complication type II E11.9 ; 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, not elsewhere classified J44.9 and CAD (coronary artery disease) I25.10 [facility] [place] [address] [id number] [place] [id number] Jul, DM w/o complication type II E11.9 ; 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, not elsewhere classified J44.9 and Infective urethritis N34.2 [facility] [place] [address] [id number] [place] [id number] Jun, Syncope and collapse R55 [facility] [place] [address] [id number] [place] [id number] Jun, [facility] [place] [address] [id number] [place] [id number] May, Bronchitis J40 [facility] [place] [address] [id number] [place] [id number] May, [facility] [place] [address] [id number] [place] [id number] May, [facility] [place] [address] [id number] [place] [id number] Apr, DM w/o complication type II E11.9 [facility] [place] [address] [id number] [place] [id number] Mar, DM w/o complication type II E11.9 ; 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, not elsewhere classified J44.9 ; Dysuria R30.0 ; Tinea pedis of right foot B35.3 and Encounter for immunization Z23 [facility] [place] [address] [id number] [place] [id number] Feb, Medicare welcome exam Z00.00 [facility] [place] [address] [id number] [place] [id number] Jan, Chronic airway obstruction, not elsewher e classified J44.9 [facility] [address] [id number] [place] [id number] Dec, [facility] [address] [id number] [place] [id number] Dec, DM w/o complication type II E11.9 ; 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, not elsewhere classified J44.9 and Acute cystitis with hematuria N30.01 [facility] [address] [id number] [place] [id number] 05 Oct, 2016 Encounter for screening for malignant ne oplasm of colon Z12.11 [facility] [address] [id number] [place] [id number] Oct, Medicare welcome exam Z00.00 [facility] [place] [id number] [place] [address], [place] [id number] September, Medicare welcome exam Z00.00 and Encount er for immunization Z23 [facility] [address] [id number] [place] [id number] September, Bronchitis J40 [facility] [address] [id number] [place] [id number] September, Bronchitis J40 [facility] [address] [id number] [place] [id number] September, Other and unspecified hyperlipidemia E78 .5 [facility] [address] [id number] [place] [id number] Aug, DM w/o complication type II E11.9 ; 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, not elsewhere classified J44.9 and Other and unspecified hyperlipidemia E78.5 [facility] [address] [id number] [place] [id number] May, DM w/o complication type II E11.9 and Ch ronic airway obstruction, not elsewhere classified J44.9 [facility] [place] [address] [id number] [place] [id number] Apr, Acute cystitis with hematuria N30.01 [facility] [place] [address] [id number] [place] [id number] Feb, DM w/o complication type II E11.9 [facility] [place] [address] [id number] [place] [id number] Feb, Chronic airway obstruction, not elsewher e classified J44.9 ; DM w/o complication type II E11.9 and Encounter for immunization Z23 [facility] [place] [address] [id number] [place] [id number] Dec, [facility] [place] [address] [id number] [place] [id number] Nov, Chronic airway obstruction, not elsewher e classified J44.9 [facility] [place] [address] [id number] [place] [id number] Oct, DM w/o complication type II E11.9 [facility] [address] [facility] [id number] 100KS [place] [address] Oct, [facility] [place] [address] [id number] [place] [id number] Aug, Chronic airway obstruction, not elsewher e classified J44.9 and DM w/o complication type II E11.9 [facility] [place] [address] [id number] [place] [id number] Aug, Chronic airway obstruction, not elsewher e classified J44.9 [facility] [place] [address] [id number] [place] [id number] Aug, DM w/o complication type II E11.9 and Ch ronic airway obstruction, not elsewhere classified J44.9 [facility] [place] [address] [id number] [place] [id number] Jul, [facility] [place] [address] [id number] [place] [id number] Jul, DM w/o complication type II E11.9 [facility] [place] [address] [id number] [place] [id number] Jun, [facility] [place] [address] [id number] [place] [id number] Jun, [facility] [place] [address] [facility] [id number] [place] [id number] Jun, Chronic airway obstruction, not elsewher e classified J44.9 ; DM w/o complication type II E11.9 and Other and unspecified hyperlipidemia E78.5 [facility] [place] [address] [facility] [id number] [place] [id number] Jun, CAD (coronary artery disease) I25.10 and Dizziness R42 [facility] [place] [address] [facility] [id number] [place] [id number] Jun, Bronchitis J40 [facility] [place] [address] [facility] [id number] [place] [id number] May, Hematoma T14.8 [facility] [place] [address] [facility] [id number] [place] [id number] May, [facility] [place] [address] [facility] [id number] [place] [id number] May, Bronchitis J40 [facility] [place] [address] [facility] [id number] [place] [id number] Apr, Bronchitis J40 [facility] [address] [facility] [id number] [address] [place] [address] Apr, [facility] [place] [address] [facility] [id number] [place] [id number] Mar, [facility] [address] [id number] [place] [phone] Mar, [facility] [place] [address] [facility] [id number] [place] [id number] Mar, [facility] [address] [id number] [place] [id number] Mar, [facility] [place] [address] [facility] [id number] [place] [id number] Mar, SOB (shortness of breath) R06.02 [facility] [place] [address] [facility] [id number] [place] [id number] Feb, Urinary tract infection, site not specif ied N39.0 and Hematuria, unspecified R31.9 [facility] [address] [id number] [place] [id number] Feb, DM w/o complication type II E11.9 ; Enco unter for immunization Z23 and Chronic airway obstruction, not elsewhere classified J44.9 [facility] [address] [facility] [id number] [place] [id number] Jan, [facility] [address] [facility] [id number] [place] [id number] Jan, [facility] [place] [address] [id number] [place] [id number] Dec, [facility] [place] [address] [id number] [place] [id number] Dec, [facility] [place] [address] [id number] [place] [id number] Dec, [facility] [place] [address] [id number] [place] [id number] Dec, [facility] [place] [address] [id number] [place] [id number] Dec, Blood in the stool 578.1 [facility] [place] [address] [id number] [place] [id number] Nov, [facility] [place] [address] [id number] [place] [id number] Nov, Colon cancer screening V76.51 [facility] [place] [address] [id number] [place] [id number] Nov, Vertigo 780.4 [facility] [place] [address] [id number] [place] [id number] Nov, Routine gynecological examination V72.31 ; Pap test, as part of routine gynecological examination V76.2 ; Breast cancer screening V76.10 ; Postmenopausal V49.81 and Colon cancer screening V76.51 [facility] [address] [id number] [place] [id number] Nov, [facility] [place] [address] [id number] [place] [id number] Nov, [facility] [address] [facility] [id number] [address] [place] [address] Nov, [facility] [place] [address] [facility] [id number] [place] [id number] Oct, Diabetes 250.00 ; COPD (chronic obstruct misha pulmonary disease) 496 and GERD (gastroesophageal reflux disease) 530.81 [facility] [address] [facility] [id number] [address] [place] [address] Oct, [facility] [place] [address] [id number] [place] [id number] Oct, [facility] [place] [address] [facility] [id number] [place] [id number] Oct, [facility] [place] [address] [id number] [place] [id number] Oct, Reflux 530.81 [facility] [address] [facility] [id number] [address] [place] [address] Oct, [facility] [place] [address] [id number] [place] [id number] Oct, [facility] [place] [address] [facility] [id number] [place] [id number] Oct, [facility] [place] [address] [id number] [place] [id number] Oct, Dysuria 788.1 [facility] [place] [address] [facility] [id number] [place] [id number] Oct, Dysuria 788.1 [facility] [address] [facility] [id number] [address] [place] [address] September, [facility] [place] [address] [facility] [id number] [place] [id number] September, Diabetes 250.00 and COPD (chronic obstru ctive pulmonary disease) 496 [facility] [place] [address] [facility] [id number] [place] [id number] September, [facility] [place] [address] [facility] [id number] [place] [id number] September, [facility] [place] [address] [facility] [id number] [id number] September, [facility] [place] [address] [facility] [id number] [place] [id number] Aug, Osteoarthritis 715.90 ; Diabetes 250.00 and COPD (chronic obstructive pulmonary disease) 496 [facility] [place] [address] [facility] [id number] [place] [id number] Aug, Pure hypercholesterolemia 272.0 ; Essent ial hypertension, benign 401.1 and Loss of weight 783.21 [facility] [address] [facility] [id number] [address] [place] [id number] Aug, [facility] [address] [facility] [id number] [address] [place] [phone] Aug, [facility] [place] [address] [facility] [id number] [place] [id number] Jul, [facility] [address] [facility] [id number] [address] [place] [phone] Jul, [facility] [address] [id number] [address] [place] [address] Jun, [facility] [address] [facility] [id number] [address] [place] [address] Jun, [facility] [place] [address] [facility] [id number] [place] [id number] Jun, [facility] [address] [facility] [id number] [address] [place] [id number] May, [facility] [place] [address] [facility] [id number] [place] [id number] May, [facility] [place] [address] [facility] [id number] [place] [id number] Apr, [facility] [address] [facility] [id number] [address] [place] [address], [place] [address] Apr, [facility] [place] [address] [id number] [place] [id number] Apr, [facility] [address] [id number] [facility] [address] Apr, [facility] [place] [address] [id number] [place] [id number] Apr, [facility] [address] [id number] [address] [place] [address], [place] [id number] Apr, [facility] [place] [address] [id number] [place] [id number] Feb, [facility] [address] [id number] [address] [place] [address], [place] [address] Feb, [facility] [place] [address] [id number] [place] [id number] Feb, [facility] [address] [id number] [address] [place] [address], [place] [address] Feb, [facility] [address] [id number] [address] [place] [address], [place] [address] Jan, [facility] [place] [address] [id number] [place] [id number] Jan, [facility] [address] [id number] [address] [place] [address], [place] [address] Jan, [facility] [place] [address] [id number] [place] [id number] Jan, [facility] [address] [id number] [address] [place] [address], [place] [address] Jan, [facility] [address] [id number] [address] [place] [address], [place] [address] Dec, [facility] [address] [id number] [address] [place] [address], [place] [address] Dec, [facility] [place] [address] [id number] [place] [id number] September, [facility] [address] [id number] [address] [place] [address], [place] [address] September, [facility] [address] [id number] [address] [place] [address], [place] [address] September, [facility] [place] [address] [id number] [place] [id number] September, [facility] [place] [address] [id number] [place] [id number] September, [facility] [address] [id number] [address] [place] [address], [place] [address] September, [facility] [place] [address] [id number] [place] [id number] Aug, [facility] [address] [id number] [address] [place] [address], [place] [address] Aug, [facility] [address] [id number] [address] [place] [address], [place] [address] Jul, [facility] [place] [address] [id number] [place] [id number] Jul, [facility] [address] [id number] [address] [place] [address], [place] [address] Jul, [facility] [place] [address] [id number] [place] [id number] Jun, [facility] [address] [id number] [address] [place] [address], [place] [address] Jun, [facility] [address] [id number] [address] [place] [address], [place] [address] Jun, [facility] [place] [address] [id number] [place] [id number] Jun, [facility] [place] [address] [id number] [place] [id number] May, [facility] [address] [id number] [address] [place] [address], [place] [address] May, [facility] [address] [id number] [address] [place] [address], [place] [address] Apr, [facility] [place] [address] [id number] [place] [id number] Mar, [facility] [address] [facility] [id number] [address] [place] [address] Mar, [facility] [address] [facility] [id number] [address] [place] [id number] Mar, [facility] [address] [facility] [id number] [address] [place] [address] Mar, [facility] [place] [address] [id number] [place] [id number] Mar, [facility] [place] [address] [id number] [place] [id number] Feb, [facility] [address] [facility] [id number] [address] [place] [phone] Feb, [facility] [place] [address] [id number] [place] [id number] Feb, [facility] [address] [facility] [id number] [address] [place] [address] Feb, [facility] [place] [address] [id number] [place] [id number] Feb, [facility] [address] [facility] [id number] [address] [place] [address] Feb, [facility] [place] [address] [id number] [place] [id number] Jan, [facility] [place] [address] [id number] [place] [id number] Dec, [facility] [place] [address] [id number] [place] [id number] Nov, [facility] [place] [address] [id number] [place] [id number] Oct, [facility] [place] [address] [id number] [place] [id number] Oct, [facility] [place] [address] [id number] [place] [id number] Oct, [facility] [place] [address] [id number] [place] [id number] Oct, [facility] [address] [id number] [address] [place] [address], [place] [address] September, [facility] [place] [address] [id number] [place] [id number] September, [facility] [address] [facility] [id number] [address] [place] [address], [place] [address] Aug, [facility] [place] [address] [id number] [place] [id number] Aug, [facility] [place] [address] [id number] [place] [id number] Jun, [facility] [place] [address] [id number] [place] [id number] Jun, [facility] [place] [address] [id number] [place] [id number] Feb, [facility] [address] [facility] [id number] [address] [place] [address], [place] [address] Feb, [facility] [place] [address] [id number] [place] [id number] Feb, [facility] [place] [address] [id number] [place] [id number] Dec, [facility] [address] [facility] [id number] [address] [place] [address], [place] [address] Dec, [facility] [place] [address] [id number] [place] [id number] Dec, [facility] [place] [address] [id number] [place] [id number] Aug, [facility] [place] [address] [id number] [place] [id number] May, [facility] [place] [address] [id number] [place] [id number] May, [facility] [address] [facility] [id number] [address] [place] [address] Apr, [facility] [address] [facility] [id number] [address] [place] [address] September, [facility] [address] [facility] [id number] [address] [place] [address] Apr, [facility] [address] [facility] [id number] [address] [place] [phone] 10 Apr, 2010 [facility] [address] [facility] [id number] [address] [place] [phone] Apr, IMMUNIZATIONS No Known Immunizations SOCIAL HISTORY Never Assessed REASON FOR VISIT [facility] PLAN OF CARE VITAL SIGNS MEDICATIONS No Known Medications RESULTS No Results [...]
--- OUTSIDE RECORDS SUMMARY | 2019-07-19 23:16 | XMS REPORT ---
Author Author Zoie DISLA Organization [facility] Address [address] [place] [address] Care Team Providers Care Flatwork Supervisor Name Role Phone ELLEN DISLA Unavailable PROBLEMS Type Condition ICD9-CM Code WDL24-BY Code Onset Dates Condition S tatus SNOMED Code Problem Other and unspecified hyperlipidemia E78.5 Active 84748876 Problem Type 2 diabetes mellitus wit h other specified complication, without long-term current use of insulin E11.69 Active 80498831 Problem Chronic airway obstruction, not elsewhere classified J44.9 Active 22804483 Problem CAD (coronary artery disease) I25.10 Active 71143077 ALLERGIES No Information ENCOUNTERS Encounter Location Date Diagnosis [place] [id number] [place] [address] S [id number] Aug, Bilateral impacted cerumen H61.23 [place] [id number] [place] [address] S [id number] Aug, Bilateral impacted cerumen H61.23 ; CAD (coronary artery disease) I25.10 and Other and unspecified hyperlipidemia E78.[id number] [place] [address] S [id number] Jun, Encounter for Medicare annual wellness e xam Z00.00 ; Type 2 diabetes mellitus with other specified complication, without long-term current use of insulin E11.69 ; Chronic airway obstruction, not elsewhere classified J44.9 ; CAD (coronary artery disease) I25.10 ; Other and unspecified hyperlipidemia E78.5 and Breast cancer screening Z12.31 [place] [id number] [place] [address], S [id number] Jun, 2018 DM w/o complication type II E11.9 ; 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, 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 ; CAD (coronary artery disease) I25.10 and Vertigo R42 [place] [id number] [place] [id number] Feb, Encounter for immunization Z23 [facility] [place] [address] [id number] [place] [id number] Jan, DM w/o complication type II E11.9 and Ch ronic airway obstruction, not elsewhere classified J44.9 [facility] [place] [address] [id number] [place] [id number] Dec, CAD (coronary artery disease) I25.10 [facility] [place] [address] [id number] [place] [id number] Oct, DM w/o complication type II E11.9 ; 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, not elsewhere 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 J44.9 and CAD (coronary artery disease) I25.10 [facility] [place] [address] [id number] [place] [id number] Jul, DM w/o complication type II E11.9 ; 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, not elsewhere classified J44.9 and Infective urethritis N34.2 [facility] [place] [address] [id number] [place] [id number] Jun, Syncope and collapse R55 [facility] [place] [address] [id number] [place] [id number] Jun, [facility] [place] [address] [id number] [place] [id number] May, Bronchitis J40 [facility] [place] [address] [id number] [place] [id number] May, [facility] [place] [address] [id number] [place] [id number] May, [facility] [place] [address] [id number] [place] [id number] Apr, DM w/o complication type II E11.9 [facility] [place] [address] [id number] [place] [id number] Mar, DM w/o complication type II E11.9 ; 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, not elsewhere classified J44.9 ; Dysuria R30.0 ; Tinea pedis of right foot B35.3 and Encounter for immunization Z23 [facility] [place] [address] [id number] [place] [id number] Feb, Medicare welcome exam Z00.00 [facility] [place] [address] [id number] [place] [id number] Jan, Chronic airway obstruction, not elsewher e classified J44.9 [facility] [place] [address] [id number] [place] [id number] Dec, [facility] [place] [address] [id number] [place] [id number] Dec, DM w/o complication type II E11.9 ; 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, not elsewhere classified J44.9 and Acute cystitis with hematuria N30.01 [facility] [place] [address] [id number] [place] [id number] Oct, Encounter for screening for malignant ne oplasm of colon Z12.11 [facility] [place] [address] [id number] [place] [id number] Oct, Medicare welcome exam Z00.00 [facility] [place] [address] [id number] [place] [id number] September, Medicare welcome exam Z00.00 and Encount er for immunization Z23 [facility] [place] [address] [id number] [place] [id number] September, Bronchitis J40 [facility] [place] [address] [id number] [place] [id number] September, Bronchitis J40 [facility] [place] [address] [id number] [place] [id number] September, Other and unspecified hyperlipidemia E78 .5 [facility] [place] [address] [id number] [place] [id number] Aug, DM w/o complication type II E11.9 ; 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, not elsewhere classified J44.9 and Other and unspecified hyperlipidemia E78.5 [facility] [place] [address] [id number] [place] [id number] May, DM w/o complication type II E11.9 and Ch ronic airway obstruction, not elsewhere classified J44.9 [facility] [place] [address] [id number] [place] [id number] Apr, Acute cystitis with hematuria N30.01 [facility] [place] [address] [id number] [place] [id number] Feb, DM w/o complication type II E11.9 [facility] [place] [address] [id number] [place] [id number] Feb, Chronic airway obstruction, not elsewher e classified J44.9 ; DM w/o complication type II E11.9 and Encounter for immunization Z23 [facility] [place] [address] [id number] [place] [id number] Dec, [facility] [place] [address] [id number] [place] [id number] Nov, Chronic airway obstruction, not elsewher e classified J44.9 [facility] [place] [address] [id number] [place] [id number] Oct, DM w/o complication type II E11.9 [facility] [address] [facility] [id number] [address] [place] [address] Oct, [facility] [place] [address] [id number] [place] [id number] Aug, Chronic airway obstruction, not elsewher e classified J44.9 and DM w/o complication type II E11.9 [facility] [place] [address] [id number] [place] [id number] Aug, Chronic airway obstruction, not elsewher e classified J44.9 [facility] [place] [address] [id number] [place] [id number] Aug, DM w/o complication type II E11.9 and Ch ronic airway obstruction, not elsewhere classified J44.9 [facility] [place] [address] [id number] [place] [id number] Jul, [facility] [place] [address] [id number] [place] [id number] Jul, DM w/o complication type II E11.9 [facility] [place] [address] [id number] [place] [id number] Jun, [facility] [place] [address] [id number] [place] [id number] Jun, [facility] [place] [address] [id number] [place] [id number] Jun, Chronic airway obstruction, not elsewher e classified J44.9 ; DM w/o complication type II E11.9 and Other and unspecified hyperlipidemia E78.5 [facility] [place] [address] [id number] [place] [id number] Jun, CAD (coronary artery disease) I25.10 and Dizziness R42 [facility] [place] [address] [id number] [place] [id number] Jun, Bronchitis J40 [facility] [place] [address] [place] [id number] [place] [id number] May, Hematoma T14.8 [facility] [place] [address] [place] [id number] [place] [address], [place] [id number] May, [facility] [place] [address] [place] [id number] [place] [id number] May, Bronchitis J40 [facility] [place] [address] [place] [address] [id number] [place] [id number] Apr, Bronchitis J40 [facility] [address] [facility] [place] [id number] [facility] [place] [address] Apr, [facility] [place] [address] [place] [id number] [place] [id number] Mar, [facility] [address] [id number] [id number] Mar, [facility] [place] [address] [id number] [place] [id number] Mar, [facility] [address] [id number] [id number] Mar, [facility] [place] [address] [id number] [place] [id number] Mar, SOB (shortness of breath) R06.02 [facility] [place] [address] [id number] [place] [id number] Feb, Urinary tract infection, site not specif ied N39.0 and Hematuria, unspecified R31.9 [facility] [address] [id number] [place] [id number] Feb, DM w/o complication type II E11.9 ; Enco unter for immunization Z23 and Chronic airway obstruction, not elsewhere classified J44.9 [facility] [address] [facility] [id number] [facility] [place] [id number] Jan, [facility] [address] [facility] [id number] [facility] [place] [id number] Jan, [facility] [address] [id number] [place] [id number] Dec, [facility] [address] [id number] [place] [id number] Dec, [facility] [place] [address] [id number] [place] [id number] Dec, [facility] [place] [address] [id number] [place] [id number] Dec, [facility] [place] [address] [id number] [place] [id number] Dec, Blood in the stool 578.1 [facility] [place] [address] [id number] [place] [id number] Nov, [facility] [place] [address] [id number] [place] [id number] Nov, Colon cancer screening V76.51 [facility] [address] [id number] [place] [id number] Nov, Vertigo 780.4 [facility] [place] [address] [id number] [place] [id number] Nov, Routine gynecological examination V72.31 ; Pap test, as part of routine gynecological examination V76.2 ; Breast cancer screening V76.10 ; Postmenopausal V49.81 and Colon cancer screening V76.51 [facility] [address] [id number] [place] [id number] Nov, [facility] [place] [address] [facility] [id number] [place] [id number] Nov, [facility] [address] [facility] [place] [id number] [address] [place] [address] Nov, [facility] [place] [address] [facility] [id number] [place] [id number] Oct, Diabetes 250.00 ; COPD (chronic obstruct misha pulmonary disease) 496 and GERD (gastroesophageal reflux disease) 530.81 [facility] [address] [facility] [place] [id number] [address] [place] [address] Oct, [facility] [place] [address] [facility] [id number] [place] [id number] Oct, [facility] [place] [address] [place] [id number] [place] [id number] Oct, [facility] [place] [address] [facility] [id number] [place] [id number] Oct, Reflux 530.81 [facility] [address] [facility] [place] [id number] [address] [place] [address] Oct, [facility] [place] [address] [facility] [id number] [place] [id number] Oct, [facility] [place] [address] [facility] [id number] [place] [id number] Oct, [facility] [place] [address] [place] [id number] [place] [id number] Oct, Dysuria 788.1 [facility] [place] [address] [facility] [id number] [place] [id number] Oct, Dysuria 788.1 [facility] [address] [facility] [id number] [address] [place] [address] September, [facility] [place] [address] [facility] [id number] [place] [id number] September, Diabetes 250.00 and COPD (chronic obstru ctive pulmonary disease) 496 [facility] [place] [address] [facility] [id number] [place] [id number] September, [facility] [place] [address] [id number] [place] [id number] September, [facility] [address] [facility] [address] [id number] [id number] September, [facility] [place] [address] [id number] [place] [id number] Aug, Osteoarthritis 715.90 ; Diabetes 250.00 and COPD (chronic obstructive pulmonary disease) 496 [facility] [place] [address] [id number] [place] [id number] Aug, Pure hypercholesterolemia 272.0 ; Essent ial hypertension, benign 401.1 and Loss of weight 783.21 [facility] [address] [facility] [id number] [address] [place] [address] Aug, [facility] [address] [facility] [id number] [address] [place] [address] Aug, [facility] [place] [address] [facility] [id number] [place] [id number] Jul, [facility] [address] [facility] [id number] [address] [place] [address] Jul, [facility] [address] [facility] [id number] [address] [place] [address] Jun, [facility] [address] [facility] [id number] [address] [place] [address] Jun, [facility] [place] [address] [facility] [id number] [place] [id number] Jun, [facility] [place] [facility] [address] [facility] [id number] [address] [place] [address] May, [facility] [place] [address] [id number] [place] [id number] May, [facility] [place] [address] [facility] [id number] [place] [id number] Apr, [facility] [address] [facility] [id number] [address] [place] [address] Apr, [facility] [place] [address] [id number] [place] [id number] Apr, [facility] [address] [id number] [address] [place] [address], [place] [address] Apr, [facility] [place] [address] [id number] [place] [id number] Apr, [facility] [address] [id number] [address] [place] [address], [place] [address] Apr, [facility] [place] [address] [id number] [place] [id number] Feb, [facility] [address] [id number] [address] [place] [address], [place] [address] Feb, [facility] [place] [address] [id number] [place] [id number] Feb, [facility] [address] [id number] [address] [place] [address], [place] [address] Feb, [facility] [address] [id number] [address] [place] [address], [place] [address] Jan, [facility] [place] [address] [id number] [place] [id number] Jan, [facility] [address] [id number] [address] [place] [address], [place] [address] Jan, [facility] [place] [address] [id number] [place] [id number] Jan, [facility] [address] [id number] [address] [place] [address], [place] [address] Jan, [facility] [address] [id number] [address] [place] [address], [place] [address] Dec, [facility] [address] [id number] [address] [place] [address], [place] [address] Dec, [facility] [place] [address] [id number] [place] [id number] September, [facility] [address] [id number] [facility] [place] [address] September, [facility] [address] [id number] [address] [place] [address], [place] [address] September, [facility] [place] [address] [id number] [place] [id number] September, [facility] [place] [address] [id number] [place] [id number] September, [facility] [address] [id number] [facility] [place] [address] September, [facility] [place] [address] [id number] [place] [id number] Aug, [facility] [address] [id number] [address] [place] [address], [place] [address] Aug, [facility] [address] [id number] [address] [place] [address], [place] [address] Jul, [facility] [place] [address] [id number] [place] [id number] Jul, [facility] [address] [id number] [address] [place] [address], [place] [address] Jul, [facility] [place] [address] [id number] [place] [id number] Jun, [facility] [address] [id number] [address] [place] [address], [place] [address] Jun, [facility] [address] [id number] [address] [place] [address], [place] [address] Jun, [facility] [place] [address] [id number] [place] [id number] Jun, [facility] [place] [address] [id number] [place] [id number] May, [facility] [address] [id number] [address] [place] [address], [place] [address] May, [facility] [address] [id number] [address] [place] [address] Apr, [facility] [place] [address] [id number] [place] [id number] Mar, [facility] [address] [facility] [id number] [address] [place] [address] Mar, [facility] [address] [facility] [id number] [address] [place] [address] Mar, [facility] [address] [facility] [id number] [address] [place] [address] Mar, [facility] [place] [address] [id number] [place] [id number] Mar, [facility] [place] [address] [id number] [place] [id number] Feb, [facility] [address] [facility] [id number] [address] [place] [address] Feb, [facility] [place] [address] [id number] [place] [id number] Feb, [facility] [address] [facility] [id number] [address] [place] [address] Feb, [facility] [place] [address] [id number] [place] [id number] Feb, [facility] [address] [facility] [id number] [address] [place] [address] Feb, [facility] [place] [address] [id number] [place] [id number] Jan, [facility] [place] [address] [id number] [place] [id number] Dec, [facility] [place] [address] [id number] [place] S [id number] Nov, [facility] [place] [address] [id number] [place] S [id number] Oct, [facility] [place] [address] [id number] [place] [id number] Oct, [facility] [place] [address] [id number] [place] [id number] Oct, [facility] [place] [address] [id number] [place] [id number] Oct, [facility] [address] [id number] [address] [place] [address] September, [facility] [place] [address] [id number] [place] [id number] September, [facility] [place] [facility] [address] [id number] [address] [place] [address], [place] [address] Aug, [facility] [place] [address] [id number] [place] [id number] Aug, [facility] [place] [address] [id number] [place] [id number] Jun, [facility] [place] [address] [id number] [place] S [id number] Jun, [facility] [place] [address] [id number] [place] [id number] Feb, [facility] [address] [id number] [address] [place] [address], [place] [address] Feb, [facility] [place] [address] [id number] [place] [id number] Feb, [facility] [place] [address] [id number] [place] [id number] Dec, [facility] [address] [id number] [address] [place] [address], [place] [address] Dec, [facility] [place] [address] [id number] [place] [id number] Dec, [facility] [place] [address] [id number] [place] [id number] Aug, [facility] [place] [address] [id number] [place] [id number] May, [facility] [place] [address] [id number] [place] [id number] May, [facility] [place] [facility] [address] [id number] [address] [place] [address] Apr, [facility] [address] [facility] [id number] [address] [place] [address] September, [facility] [address] [facility] [id number] [address] [place] [address] Apr, [facility] [address] [facility] [id number] [address] [place] [address] Apr, [facility] [address] [facility] [id number] [address] [place] [address] Apr, IMMUNIZATIONS No Known Immunizations SOCIAL HISTORY Never Assessed REASON FOR VISIT PLAN OF CARE VITAL SIGNS MEDICATIONS No [...]
--- OUTSIDE RECORDS SUMMARY | 2019-07-19 23:16 | XMS REPORT ---
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 Expert Name Role Phone ELLEN DISLA Unavailable PROBLEMS Type Condition ICD9-CM Code HCU32-LV Code Onset Dates Condition S tatus SNOMED Code Problem Other and unspecified hyperlipidemia E78.5 Active 46522491 Problem Type 2 diabetes mellitus wit h other specified complication, without long-term current use of insulin E11.69 Active 00707542 Problem Chronic airway obstruction, not elsewhere classified J44.9 Active 01443930 Problem CAD (coronary artery disease) I25.10 Active 93145657 ALLERGIES Substance Reaction Event Type Date Status Bactrim hives Drug Allergy Jun, Active ENCOUNTERS Encounter Location Date Diagnosis [id number] [place] [address], S [id number] Aug, Bilateral impacted cerumen H61.23 [place] [id number] [place] [address], S [id number] Aug, Bilateral impacted cerumen H61.23 ; CAD (coronary artery disease) I25.10 and Other and unspecified hyperlipidemia E78.5 [address] [place], [place] [address] S [id number] Jun, Encounter for Medicare annual wellness e xam Z00.00 ; Type 2 diabetes mellitus with other specified complication, without long-term current use of insulin E11.69 ; Chronic airway obstruction, not elsewhere classified J44.9 ; CAD (coronary artery disease) I25.10 ; Other and unspecified hyperlipidemia E78.5 and Breast cancer screening Z12.31 [address] [place] [address], S [id number] Jun, DM w/o complication type II E11.9 ; Thermodynamic Physicist 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, not elsewhere classified J44.9 ; CAD (coronary artery disease) I25.10 and Vertigo R42 [facility] [place] [address] [id number] [place] [id number] 09 Feb, 2018 Encounter for immunization Z23 [facility] [place] [address] [id number] [place] [id number] Jan, DM w/o complication type II E11.9 and Ch ronic airway obstruction, not elsewhere classified J44.9 [facility] [place] [address] [id number] [place] [id number] Dec, CAD (coronary artery disease) I25.10 [facility] [place] [address] [id number] [place] [id number] Oct, DM w/o complication type II E11.9 ; Thermodynamic Physicist 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, not elsewhere classified J44.9 and CAD (coronary artery disease) I25.10 [facility] [place] [address] [id number] [place] [id number] Jul, DM w/o complication type II E11.9 ; Thermodynamic Physicist 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, not elsewhere classified J44.9 and Infective urethritis N34.2 [facility] [place] [address] [id number] [place] [id number] Jun, Syncope and collapse R55 [facility] [place] [address] [id number] [place] [id number] Jun, [facility] [place] [address] [id number] [place] [id number] May, Bronchitis J40 [facility] [place] [address] [id number] [place] [id number] May, [facility] [place] [address] [id number] [place] [id number] May, [facility] [place] [address] [id number] [place] [id number] Apr, DM w/o complication type II E11.9 [facility] [place] [address] [id number] [place] [id number] Mar, DM w/o complication type II E11.9 ; Thermodynamic Physicist 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, not elsewhere classified J44.9 ; Dysuria R30.0 ; Tinea pedis of right foot B35.3 and Encounter for immunization Z23 [facility] [place] [address] [id number] [place] [id number] Feb, Medicare welcome exam Z00.00 [facility] [place] [address] [id number] [place] [id number] 07 Jan, 2017 Chronic airway obstruction, not elsewher e classified J44.9 [facility] [place] [address] [id number] [place] [id number] Dec, [facility] [place] [address] [id number] [place] [id number] Dec, DM w/o complication type II E11.9 ; Thermodynamic Physicist 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, not elsewhere classified J44.9 and Acute cystitis with hematuria N30.01 [facility] [place] [address] [id number] [place] [id number] Oct, Encounter for screening for malignant ne oplasm of colon Z12.11 [facility] [place] [address] [id number] [place] [id number] Oct, Medicare welcome exam Z00.00 [facility] [place] [address] [id number] [place] [id number] September, Medicare welcome exam Z00.00 and Encount er for immunization Z23 [facility] [place] [address] [id number] [place] [id number] September, Bronchitis J40 [facility] [place] [address] [id number] [place] [id number] September, Bronchitis J40 [facility] [place] [address] [id number] [place] [id number] September, Other and unspecified hyperlipidemia E78 .5 [facility] [place] [address] [id number] [place] [id number] Aug, DM w/o complication type II E11.9 ; Thermodynamic Physicist 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, not elsewhere classified J44.9 and Other and unspecified hyperlipidemia E78.5 [facility] [place] [address] [id number] [place] [id number] May, DM w/o complication type II E11.9 and Ch ronic airway obstruction, not elsewhere classified J44.9 [facility] [place] [address] [id number] [place] [id number] Apr, Acute cystitis with hematuria N30.01 [facility] [place] [address] [id number] [place] [id number] Feb, DM w/o complication type II E11.9 [facility] [place] [address] [id number] [place] [id number] Feb, Chronic airway obstruction, not elsewher e classified J44.9 ; DM w/o complication type II E11.9 and Encounter for immunization Z23 [facility] [place] [address] [id number] [place] [id number] Dec, [facility] [address] [id number] [place] [id number] Nov, Chronic airway obstruction, not elsewher e classified J44.9 [facility] [address] [id number] [place] [id number] Oct, DM w/o complication type II E11.9 [facility] [address] [facility] [id number] [address] [place] [address] Oct, [facility] [place] [address] [id number] [place] [id number] Aug, Chronic airway obstruction, not elsewher e classified J44.9 and DM w/o complication type II E11.9 [facility] [place] [address] [id number] [place] S [id number] Aug, Chronic airway obstruction, not elsewher e classified J44.9 [facility] [address] [id number] [place] [id number] Aug, DM w/o complication type II E11.9 and Ch ronic airway obstruction, not elsewhere classified J44.9 [facility] [address] [id number] [place] S [id number] Jul, [facility] [address] [id number] [place] [id number] Jul, DM w/o complication type II E11.9 [facility] [place] [address] [id number] [place] [id number] Jun, [facility] [address] [id number] [place] [id number] Jun, [facility] [place] [address] [id number] [place] [id number] Jun, Chronic airway obstruction, not elsewher e classified J44.9 ; DM w/o complication type II E11.9 and Other and unspecified hyperlipidemia E78.5 [facility] [place] [address] [id number] [place] [id number] Jun, CAD (coronary artery disease) I25.10 and Dizziness R42 [facility] [place] [address] [id number] [place] [id number] Jun, Bronchitis J40 [facility] [place] [address] [facility] [id number] [place] [id number] May, Hematoma T14.8 [facility] [place] [address] [facility] [id number] [place] [id number] May, [facility] [address] [facility] [id number] [place] [id number] May, Bronchitis J40 [facility] [place] [address] [facility] [id number] [place] [id number] Apr, Bronchitis J40 [facility] [address] [facility] [id number] [address] [place] [address] Apr, [facility] [place] [address] [facility] [id number] [place] [id number] Mar, [facility] [address] [address] [id number] [place] [phone] Mar, [facility] [place] [address] [facility] [id number] [place] [id number] Mar, [facility] [address] [address] [id number] [id number] Mar, [facility] [place] [address] [facility] [id number] [place] [id number] Mar, SOB (shortness of breath) R06.02 [facility] [address] [id number] [place] [id number] Feb, Urinary tract infection, site not specif ied N39.0 and Hematuria, unspecified R31.9 [facility] [place] [address] [id number] [place] [id number] Feb, DM w/o complication type II E11.9 ; Enco unter for immunization Z23 and Chronic airway obstruction, not elsewhere classified J44.9 [facility] [address] [facility] [id number] [place] [id number] Jan, [facility] [address] [facility] [id number] [place] [id number] Jan, [facility] [address] [id number] [place] [id number] Dec, [facility] [place] [address] [id number] [place] [id number] Dec, [facility] [place] [address] [id number] [place] [id number] Dec, [facility] [place] [address] [id number] [place] [id number] Dec, [facility] [place] [address] [id number] [place] [id number] Dec, Blood in the stool 578.1 [facility] [place] [address] [id number] [place] [id number] Nov, [facility] [place] [address] [id number] [place] [id number] Nov, Colon cancer screening V76.51 [facility] [place] [address] [id number] [place] [id number] Nov, Vertigo 780.4 [facility] [place] [address] [id number] [place] [id number] Nov, Routine gynecological examination V72.31 ; Pap test, as part of routine gynecological examination V76.2 ; Breast cancer screening V76.10 ; Postmenopausal V49.81 and Colon cancer screening V76.51 [facility] [address] [facility] [id number] [place] [id number] Nov, [facility] [address] [facility] [id number] [place] [id number] Nov, [facility] [place] [address] [id number] [address] [place] [address] Nov, [facility] [id number] [place] [address], [place] [id number] Oct, Diabetes 250.00 ; COPD (chronic obstruct misha pulmonary disease) 496 and GERD (gastroesophageal reflux disease) 530.81 [facility] [place] [address] [id number] [address] [place] [address] Oct, [facility] [address] [id number] [place] [id number] Oct, [facility] [id number] [place] [id number] Oct, [facility] [id number] [place] [address], [place] [id number] Oct, Reflux 530.81 [facility] [place] [address] [id number] [address] [place] [address] Oct, [facility] [id number] [place] [id number] Oct, [facility] [id number] [place] [id number] Oct, [facility] [id number] [place] [address], [place] S [id number] Oct, Dysuria 788.1 [facility] [address] [id number] [place] [id number] Oct, Dysuria 788.1 [facility] [place] [address] [id number] [address] [place] [address] September, [facility] [address] [id number] [place] [id number] September, Diabetes 250.00 and COPD (chronic obstru ctive pulmonary disease) 496 [facility] [place] [address] [id number] [place] [id number] September, [facility] [place] [address] [id number] [place] [id number] September, [facility] [address] [id number] [place] [id number] September, [facility] [place] [address] [id number] [place] [id number] Aug, Osteoarthritis 715.90 ; Diabetes 250.00 and COPD (chronic obstructive pulmonary disease) 496 [facility] [place] [address] [id number] [place] S [id number] Aug, Pure hypercholesterolemia 272.0 ; Essent ial hypertension, benign 401.1 and Loss of weight 783.21 [facility] [place] [address] [id number] [address] [place] [address] Aug, [facility] [place] [address] [facility] [id number] [address] [place] [address] Aug, [facility] [place] [address] [facility] [id number] [place] [id number] Jul, [facility] [place] [address] [facility] [id number] [address] [place] [address] Jul, [facility] [place] [address] [id number] [address] [place] [address] Jun, [facility] [place] [address] [facility] [id number] [address] [place] [address] Jun, [facility] [place] [address] [facility] [id number] [place] [id number] Jun, [facility] [place] [address] [facility] [id number] [address] [place] [address] May, [facility] [place] [address] [id number] [place] [id number] May, [facility] [place] [address] [id number] [place] [id number] Apr, [facility] [address] [id number] [facility] [address] Apr, [facility] [place] [address] [id number] [place] [id number] Apr, [facility] [address] [id number] [address] [place] [address], [place] [address] Apr, [facility] [place] [address] [id number] [place] [id number] Apr, [facility] [address] [id number] [address] [place] [address], [place] [address] Apr, [facility] [place] [address] [id number] [place] [id number] Feb, [facility] [address] [id number] [address] [place] [address], [place] [address] Feb, [facility] [place] [address] [id number] [place] [id number] Feb, [facility] [address] [id number] [address] [place] [address], [place] [address] Feb, [facility] [address] [id number] [address] [place] [address], [place] [address] Jan, [facility] [address] [id number] [place] [id number] Jan, [facility] [address] [id number] [address] [place] [address], [place] [address] Jan, [facility] [place] [address] [id number] [place] [id number] Jan, [facility] [address] [id number] [address] [place] [address], [place] [address] Jan, [facility] [address] [id number] [address] [place] [address], [place] [address] Dec, [facility] [address] [id number] [address] [place] [address], [place] [address] Dec, [facility] [address] [id number] [place] [id number] September, [facility] [address] [id number] [address] [place] [address], [place] [address] September, [facility] [address] [id number] [address] [place] [address], [place] [address] September, [facility] [address] [id number] [place] [id number] September, [facility] [place] [address] [id number] [place] [id number] September, [facility] [address] [id number] [address] [place] [address], [place] [address] September, [facility] [address] [id number] [place] [id number] Aug, [facility] [address] [id number] [address] [place] [address], [place] [address] Aug, [facility] [address] [id number] [address] [place] [address], [place] [address] Jul, [facility] [address] [id number] [place] [id number] Jul, [facility] [address] [id number] [address] [place] [address], [place] [address] Jul, [facility] [address] [id number] [place] [id number] Jun, [facility] [address] [id number] [address] [place] [address], [place] [address] Jun, [facility] [address] [id number] [address] [place] [address], [place] [address] Jun, [facility] [address] [id number] [place], [place] [id number] Jun, [facility] [address] [id number] [place], [place] [id number] May, [facility] [address] [id number] [address] [place] [address], [place] [address] May, [facility] [address] [id number] [address] [place] [address] Apr, [facility] [address] [id number] [place] [id number] Mar, [facility] [address] [id number] [address] [place] [address] Mar, [facility] [address] [id number] [address] [place] [address], [place] [address] Mar, [facility] [address] [id number] [address] [place] [address] Mar, [facility] [place] [address] [id number] [place] [id number] Mar, [facility] [place] [address] [id number] [place] [id number] Feb, [facility] [address] [facility] [id number] [address] [place] [address] Feb, [facility] [place] [address] [id number] [place] [id number] Feb, [facility] [address] [facility] [id number] [address] [place] [address] Feb, [facility] [place] [address] [id number] [place] [id number] Feb, [facility] [address] [id number] [address] [place] [address], [place] [address] Feb, [facility] [place] [address] [id number] [place] [id number] Jan, [facility] [place] [address] [id number] [place] [id number] Dec, [facility] [place] [address] [id number] [place] [id number] Nov, [facility] [place] [address] [id number] [place] [id number] Oct, [facility] [place] [address] [id number] [place] [id number] Oct, [facility] [place] [address] [id number] [place] [id number] Oct, [facility] [place] [address] [id number] [place] [id number] Oct, [facility] [address] [facility] [id number] [address] [place] [address], [place] [address] September, [facility] [place] [address] [id number] [place] [id number] September, [facility] [address] [id number] [address] [place] [address], [place] [address] Aug, [facility] [address] [id number] [place] [id number] Aug, [facility] [place] [address] [id number] [place] [id number] Jun, [facility] [place] [address] [id number] [place] [id number] Jun, [facility] [place] [address] [id number] [place] [id number] Feb, [facility] [address] [facility] [id number] [address] [place] [address] Feb, [facility] [address] [id number] [place] [id number] Feb, [facility] [address] [id number] [place] [id number] Dec, [facility] [address] [facility] [id number] [address] [place] [address], [place] [address] Dec, [facility] [address] [id number] [place] [id number] Dec, [facility] [address] [id number] [place], [place] [id number] Aug, [facility] [address] [id number] [place] [id number] May, [facility] [address] [id number] [place] [id number] May, [facility] [place] [address] [facility] [id number] [address] [place] [address] Apr, [facility] [place] [address] [facility] [id number] [address] [place] [address] September, [facility] [place] [address] [facility] [id number] [address] [place] [address] Apr, [facility] [place] [address] [facility] [id number] [address] [place] [address] Apr, [facility] [place] [address] [facility] [id number] [address] [place] [address] Apr, IMMUNIZATIONS No Known Immunizations SOCIAL HISTORY Never Assessed REASON FOR VISIT Medicare AWV KJones RN PLAN OF CARE Activity Details Follow Up 1 Year Reason:AWV VITAL SIGNS Height 66 in 2018-06-30 Weight 131 lbs 2018-06-30 Temperature 97.5 degrees Fahrenheit 2018-06-30 Heart Rate 64 bpm 2018-06-30 Respiratory Rate 20 2018-06-30 BMI 21.14 kg/m2 2018-06-30 Blood pressure systolic 122 mmHg 2018-06-30 Blood pressure diastolic 81 mmHg 2018-06-30 MEDICATIONS Medication Instructions Dosage Frequency Start Date End Date Duration S tatus Metformin HCl 500 mg Orally twice a day 2 1/2 tabs in AM an d 1 1/2 tablets in pm 12h Active Spiriva HandiHaler 18 MCG Inhalation Once a day 1 puff 24h Active Aspirin Adult Low Dose 81 MG Orally Once a day 1 tablet 24h Active Accolate 20 MG TAKE ONE (1) TABLET BY MOUTH TWICE DAILY... Active Albuterol Sulfate (2.5 MG/3ML) 0.083% Inhalation Three times a day pr n 3 ml Active Omeprazole 40 MG TAKE ONE (1) CAPSULE BY MOUTH ONCE DAILY... Active Pravastatin Sodium 20 mg Orally Once a day 1 tablet 24h 30 Active Ventolin HFA 108 (90 Base) MCG/ACT INHALE 2 PUFF S EVERY 4 HOURS NEEDED... Active Potassium Chloride ER 10 MEQ Orally Once a day 1 tablet with food 24h Active [place] [employer] Ultra Test Test Strips as directed Oct, Active Magnesium Oxide 400 mg Orally 2 times a day 1 tablet as needed 12h Active Symbicort 160-4.5 MCG/ACT INHALE 2 PUFFS BY MOUTH TWICE DAILY... . 12h Active Meclizine HCl 25 mg Orally 3 times a day 1 tablet as needed for d izziness 8h Nov, Active RESULTS Name Result Date Reference Range Mammogram, Bilateral Screening 2018-07-07 PROCEDURES Procedure Date Ordered Result Body Site [facility] VISIT IPPE/AWV Jun 30, 2018 ANNUAL WELLNESS VST; PPS SUBSQT VST Jun 30, 2018 INSTRUCTIONS MEDICATIONS ADMINISTERED No Known Medications [...]
--- OUTSIDE RECORDS SUMMARY | 2019-07-19 23:16 | XMS REPORT ---
Author Author Zoie Abebe Doctor Organization [facility] Address Unknown Phone Unavailable Care Team Providers Care Residential Glazier Name Role Phone Migration, Doctor Unavailable Unavailable PROBLEMS Type Condition ICD9-CM Code QZZ12-SI Code Onset Dates Condition S tatus SNOMED Code Problem Other and unspecified hyperlipidemia E78.5 Active 40904676 Problem Type 2 diabetes mellitus wit h other specified complication, without long-term current use of insulin E11.69 Active 35571481 Problem Chronic airway obstruction, not elsewhere classified J44.9 Active 83146861 Problem CAD (coronary artery disease) I25.10 Active 01155117 ALLERGIES No Information ENCOUNTERS Encounter Location Date Diagnosis [id number], [place] [id number] Aug, [place] [id number] [place] [address], S [id number] Aug, Bilateral impacted cerumen H61.23 ; CAD (coronary artery disease) I25.10 and Other and unspecified hyperlipidemia E78.5 [place] [id number] [place] [id number] Jun, Encounter for Medicare annual wellness e xam Z00.00 ; Type 2 diabetes mellitus with other specified complication, without long-term current use of insulin E11.69 ; Chronic airway obstruction, not elsewhere classified J44.9 ; CAD (coronary artery disease) I25.10 ; Other and unspecified hyperlipidemia E78.5 and Breast cancer screening Z12.31 [facility] [address] [id number] [place] [id number] Jun, DM w/o complication type II E11.9 ; [employer] 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, not elsewhere classified J44.9 ; CAD (coronary artery disease) I25.10 and Vertigo R42 [facility] [id number] [place] [id number] Feb, Encounter for immunization Z23 [facility] [place] [address] [id number] [place] [id number] Jan, DM w/o complication type II E11.9 and Ch ronic airway obstruction, not elsewhere classified J44.9 [facility] [place] [address] [id number] [place] [id number] Dec, CAD (coronary artery disease) I25.10 [facility] [place] [address] [id number] [place] [id number] Oct, DM w/o complication type II E11.9 ; [employer] 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, not elsewhere classified J44.9 and CAD (coronary artery disease) I25.10 [facility] [place] [address] [id number] [place] [id number] Jul, DM w/o complication type II E11.9 ; [employer] 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, not elsewhere classified J44.9 and Infective urethritis N34.2 [facility] [place] [address] [id number] [place] [id number] Jun, Syncope and collapse R55 [facility] [place] [address] [id number] [place] [id number] Jun, [facility] [place] [address] [id number] [place] [id number] May, Bronchitis J40 [facility] [place] [address] [id number] [place] [id number] May, [facility] [place] [address] [id number] [place] [id number] May, [facility] [place] [address] [id number] [place] [id number] Apr, DM w/o complication type II E11.9 [facility] [place] [address] [id number] [place] [id number] Mar, DM w/o complication type II E11.9 ; [employer] 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, not elsewhere classified J44.9 ; Dysuria R30.0 ; Tinea pedis of right foot B35.3 and Encounter for immunization Z23 [facility] [place] [address] [id number] [place] [id number] Feb, Medicare welcome exam Z00.00 [facility] [place] [address] [id number] [place] [id number] Jan, Chronic airway obstruction, not elsewher e classified J44.9 [facility] [address] [id number] [place] [id number] Dec, [facility] [address] [id number] [place] [id number] Dec, DM w/o complication type II E11.9 ; [employer] 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, not elsewhere classified J44.9 and Acute cystitis with hematuria N30.01 [facility] [address] [id number] [place] [id number] Oct, Encounter for screening for malignant ne oplasm of colon Z12.11 [facility] [address] [id number] [place] [id number] Oct, Medicare welcome exam Z00.00 [facility] [address] [id number] [place] [id number] September, Medicare welcome exam Z00.00 and Encount er for immunization Z23 [facility] [address] [id number] [place] [id number] September, Bronchitis J40 [facility] [place] [address] [id number] [place] [id number] September, Bronchitis J40 [facility] [address] [id number] [place] [id number] September, Other and unspecified hyperlipidemia E78 .5 [facility] [address] [id number] [place] [id number] Aug, DM w/o complication type II E11.9 ; [employer] 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, not elsewhere classified J44.9 and Other and unspecified hyperlipidemia E78.5 [facility] [address] [id number] [place] [id number] May, DM w/o complication type II E11.9 and Ch ronic airway obstruction, not elsewhere classified J44.9 [facility] [place] [address] [id number] [place] [id number] Apr, Acute cystitis with hematuria N30.01 [facility] [place] [address] [id number] [place] [id number] Feb, DM w/o complication type II E11.9 [facility] [place] [address] [id number] [place] [id number] Feb, Chronic airway obstruction, not elsewher e classified J44.9 ; DM w/o complication type II E11.9 and Encounter for immunization Z23 [facility] [place] [address] [id number] [place] [id number] Dec, [facility] [place] [address] [id number] [place] [id number] Nov, Chronic airway obstruction, not elsewher e classified J44.9 [facility] [place] [address] [id number] [place] [id number] Oct, DM w/o complication type II E11.9 [facility] [address] [facility] [id number] [address] [address] Oct, [facility] [place] [address] [id number] [place] [id number] Aug, Chronic airway obstruction, not elsewher e classified J44.9 and DM w/o complication type II E11.9 [facility] [place] [address] [id number] [place] [id number] Aug, Chronic airway obstruction, not elsewher e classified J44.9 [facility] [place] [address] [id number] [place] [id number] Aug, DM w/o complication type II E11.9 and Ch ronic airway obstruction, not elsewhere classified J44.9 [facility] [place] [address] [id number] [place] [id number] Jul, [facility] [place] [address] [id number] [place] [id number] Jul, DM w/o complication type II E11.9 [facility] [place] [address] [id number] [place] [id number] Jun, [facility] [place] [address] [id number] [place] [id number] Jun, [facility] [place] [address] [facility] [id number] [place] [id number] Jun, Chronic airway obstruction, not elsewher e classified J44.9 ; DM w/o complication type II E11.9 and Other and unspecified hyperlipidemia E78.5 [facility] [place] [address] [facility] [id number] [place] [id number] Jun, CAD (coronary artery disease) I25.10 and Dizziness R42 [facility] [place] [address] [facility] [id number] [place] [id number] Jun, Bronchitis J40 [facility] [place] [address] [facility] [id number] [place] [id number] May, Hematoma T14.8 [facility] [place] [address] [facility] [id number] [place] [id number] May, [facility] [place] [address] [facility] [id number] [place] [id number] May, Bronchitis J40 [facility] [place] [address] [facility] [id number] [place] [id number] Apr, Bronchitis J40 [facility] [address] [facility] [id number] [address] [place] [address] Apr, [facility] [place] [address] [facility] [id number] [place] [id number] Mar, [facility] [address] [id number] [place] [id number] Mar, [facility] [place] [address] [facility] [id number] [place] [id number] Mar, [facility] [address] [id number] [place] [id number] Mar, [facility] [place] [address] [facility] [id number] [place] [id number] Mar, SOB (shortness of breath) R06.02 [facility] [place] [address] [facility] [id number] [place] [id number] Feb, Urinary tract infection, site not specif ied N39.0 and Hematuria, unspecified R31.9 [facility] [place] [address] [id number] [place] [id number] Feb, DM w/o complication type II E11.9 ; Enco unter for immunization Z23 and Chronic airway obstruction, not elsewhere classified J44.9 [facility] [address] [facility] [id number] [place] [id number] Jan, [facility] [address] [facility] [id number] [place] [id number] Jan, [facility] [place] [address] [id number] [place] [id number] Dec, [facility] [place] [address] [id number] [place] [id number] Dec, [facility] [place] [address] [id number] [place] [id number] Dec, [facility] [place] [address] [id number] [place] [id number] Dec, [facility] [place] [address] [id number] [place] [id number] Dec, Blood in the stool 578.1 [facility] [place] [address] [id number] [place] [id number] Nov, [facility] [place] [address] [id number] [place] [id number] Nov, Colon cancer screening V76.51 [facility] [place] [address] [id number] [place] [id number] Nov, Vertigo 780.4 [facility] [place] [address] [id number] [place] [id number] Nov, Routine gynecological examination V72.31 ; Pap test, as part of routine gynecological examination V76.2 ; Breast cancer screening V76.10 ; Postmenopausal V49.81 and Colon cancer screening V76.51 [facility] [place] [address] [id number] [place] [id number] Nov, [facility] [place] [address] [id number] [place] [id number] Nov, [facility] [address] [facility] [id number] [address] [place] [address] Nov, [facility] [place] [address] [id number] [place] [id number] Oct, Diabetes 250.00 ; COPD (chronic obstruct misha pulmonary disease) 496 and GERD (gastroesophageal reflux disease) 530.81 [facility] [place] [address] [facility] [id number] [address] [place] [address] Oct, [facility] [place] [address] [id number] [place] [id number] Oct, [facility] [place] [address] [id number] [place] [id number] Oct, [facility] [place] [address] [id number] [place] [id number] Oct, Reflux 530.81 [facility] [address] [facility] [id number] [address] [place] [address] Oct, [facility] [place] [address] [id number] [place] [id number] Oct, [facility] [place] [address] [id number] [place] [id number] Oct, [facility] [place] [address] [id number] [place] [id number] Oct, Dysuria 788.1 [facility] [place] [address] [facility] [id number] [place] [id number] Oct, Dysuria 788.1 [facility] [address] [facility] [id number] [address] [place] [address] September, [facility] [place] [address] [id number] [place] [id number] September, Diabetes 250.00 and COPD (chronic obstru ctive pulmonary disease) 496 [facility] [place] [address] [id number] [place] [id number] September, [facility] [place] [address] [facility] [id number] [place] [id number] September, [facility] [address] [facility] [address] [id number] [place] [phone] September, [facility] [place] [address] [facility] [id number] [place] [id number] Aug, Osteoarthritis 715.90 ; Diabetes 250.00 and COPD (chronic obstructive pulmonary disease) 496 [facility] [place] [address] [facility] [id number] [place] [id number] Aug, Pure hypercholesterolemia 272.0 ; Essent ial hypertension, benign 401.1 and Loss of weight 783.21 [facility] [address] [facility] [id number] [address] [place] [address] Aug, [facility] [address] [facility] [id number] [address] [place] [phone] Aug, [facility] [place] [address] [facility] [id number] [place] [id number] Jul, [facility] [address] [facility] [id number] [address] [place] [phone] Jul, [facility] [address] [facility] [id number] [address] [place] [address] Jun, [facility] [address] [facility] [id number] [address] [place] [address] Jun, [facility] [place] [address] [facility] [id number] [place] [id number] Jun, [facility] [address] [facility] [id number] [address] [place] [address] May, [facility] [place] [address] [id number] [place] [id number] May, [facility] [place] [address] [facility] [id number] [place] [id number] Apr, [facility] [address] [facility] [id number] [address] [place] [phone] Apr, [facility] [place] [address] [facility] [id number] [place] [id number] Apr, [facility] [address] [id number] [address] [place] [address], [place] [address] Apr, [facility] [place] [address] [id number] [place] [id number] Apr, [facility] [address] [id number] [facility] [place] [address] Apr, [facility] [place] [address] [id number] [place] [id number] Feb, [facility] [address] [id number] [address] [place] [address], [place] [address] Feb, [facility] [place] [address] [id number] [place] [id number] Feb, [facility] [address] [id number] [address] [place] [address], [place] [address] Feb, [facility] [address] [id number] [address] [place] [address], [place] [address] Jan, [facility] [place] [address] [id number] [place] [id number] Jan, [facility] [address] [id number] [address] [place] [address], [place] [address] Jan, [facility] [place] [address] [id number] [place] [id number] Jan, [facility] [address] [id number] [address] [place] [address], [place] [address] Jan, [facility] [address] [id number] [address] [place] [address], [place] [address] Dec, [facility] [address] [id number] [address] [place] [address], [place] [address] Dec, [facility] [place] [address] [id number] [place] [id number] September, [facility] [address] [id number] [address] [place] [address], [place] [address] September, [facility] [address] [id number] [facility] [place] [address] September, [facility] [place] [address] [id number] [place] [id number] September, [facility] [place] [address] [id number] [place] [id number] September, [facility] [address] [id number] [address] [place] [address], [place] [address] September, [facility] [place] [address] [id number] [place] [id number] Aug, [facility] [address] [id number] [address] [place] [address], [place] [address] Aug, [facility] [address] [id number] [address] [place] [address], [place] [address] Jul, [facility] [place] [address] [id number] [place] [id number] Jul, [facility] [address] [id number] [address] [place] [address], [place] [address] Jul, [facility] [place] [address] [id number] [place] [id number] Jun, [facility] [address] [id number] [address] [place] [address], [place] [address] Jun, [facility] [address] [id number] [address] [place] [address], [place] [address] Jun, [facility] [place] [address] [id number] [place] [id number] Jun, [facility] [place] [address] [id number] [place] [id number] May, [facility] [address] [id number] [address] [place] [address], [place] [address] May, [facility] [address] [id number] [address] [place] [address], [place] [address] Apr, [facility] [place] [address] [id number] [place] [id number] Mar, [facility] [address] [facility] [id number] [address] [place] [address] Mar, [facility] [address] [facility] [id number] [address] [place] [address] Mar, [facility] [address] [facility] [id number] [address] [place] [address] Mar, [facility] [place] [address] [id number] [place] [id number] Mar, [facility] [place] [address] [id number] [place] [id number] Feb, [facility] [address] [facility] [id number] [address] [place] [address] Feb, [facility] [place] [address] [id number] [place] [id number] Feb, [facility] [address] [facility] [id number] [address] [place] [address] Feb, [facility] [place] [address] [id number] [place] [id number] Feb, [facility] [address] [facility] [id number] [address] [place] [address] Feb, [facility] [place] [address] [id number] [place] [id number] Jan, [facility] [place] [address] [id number] [place] [id number] Dec, [facility] [place] [address] [id number] [place] [id number] Nov, [facility] [place] [address] [id number] [place] [id number] Oct, [facility] [place] [address] [id number] [place] [id number] Oct, [facility] [place] [address] [id number] [place] [id number] Oct, [facility] [place] [address] [id number] [place] [id number] Oct, [facility] [address] [id number] [address] [place] [address], [place] [address] September, [facility] [place] [address] [id number] [place] [id number] September, [facility] [address] [facility] [id number] [address] [place] [address], [place] [address] Aug, [facility] [place] [address] [id number] [place] [id number] Aug, [facility] [place] [address] [id number] [place] [id number] Jun, [facility] [place] [address] [id number] [place] [id number] Jun, [facility] [place] [address] [id number] [place] [id number] Feb, [facility] [address] [facility] [id number] [address] [place] [address], [place] [address] Feb, [facility] [place] [address] [id number] [place] [id number] Feb, [facility] [place] [address] [id number] [place] [id number] Dec, [facility] [address] [facility] [id number] [address] [place] [address], [place] [address] Dec, [facility] [place] [address] [id number] [place] [id number] Dec, [facility] [place] [address] [id number] [place] [id number] Aug, [facility] [place] [address] [id number] [place] [id number] May, [facility] [address] [id number] [place] [id number] May, [facility] [address] [facility] [id number] [address] [place] [address] Apr, [facility] [address] [facility] [id number] [address] [place] [address] September, [facility] [address] [facility] [id number] [address] [place] [address] Apr, [facility] [address] [facility] [id number] [address] [place] [phone] Apr, [facility] [address] [facility] [id number] [address] [place] [address] Apr, IMMUNIZATIONS No Known Immunizations SOCIAL HISTORY Never Assessed REASON FOR VISIT [facility] PLAN OF CARE VITAL SIGNS MEDICATIONS Unknown [...]
--- OUTSIDE RECORDS SUMMARY | 2019-07-19 23:17 | XMS REPORT ---
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 Name Role Phone Migration, Doctor Unavailable Unavailable PROBLEMS Type Condition ICD9-CM Code [id number] Code Onset Dates Condition S tatus SNOMED Code Problem Other and unspecified hyperlipidemia E78.5 Active 21922417 Problem Type 2 diabetes mellitus wit h other specified complication, without long-term current use of insulin E11.69 Active 40646876 Problem Chronic airway obstruction, not elsewhere classified J44.9 Active 14093153 Problem CAD (coronary artery disease) I25.10 Active 46439038 ALLERGIES No Information ENCOUNTERS Encounter Location Date Diagnosis [place] [id number] [place] [address], S [id number] Aug, [place] [id number] [place] [address], [facility] S [id number] Jun, Encounter for Medicare annual wellness e xam Z00.00 ; Type 2 diabetes mellitus with other specified complication, without long-term current use of insulin E11.69 ; Chronic airway obstruction, not elsewhere classified J44.9 ; CAD (coronary artery disease) I25.10 ; Other and unspecified hyperlipidemia E78.5 and Breast cancer screening Z12.31 [place] [id number] [place] [id number] Jun, DM w/o complication type II E11.9 ; Innovation Analyst 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, not elsewhere classified J44.9 ; CAD (coronary artery disease) I25.10 and Vertigo R42 [place] [address] [id number] [employer], [employer] S [id number] Feb, Encounter for immunization Z23 [facility] [address] [id number] [place], [employer] S [id number] Jan, DM w/o complication type II E11.9 and Ch ronic airway obstruction, not elsewhere classified J44.9 [place] [address] [place] [id number] [place] [id number] Dec, CAD (coronary artery disease) I25.10 [facility] [place] [address] [id number] [place] [id number] Oct, DM w/o complication type II E11.9 ; Innovation Analyst 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, not elsewhere classified J44.9 and CAD (coronary artery disease) I25.10 [facility] [place] [address] [id number] [place] [id number] Jul, DM w/o complication type II E11.9 ; Innovation Analyst 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, not elsewhere classified J44.9 and Infective urethritis N34.2 [facility] [place] [address] [id number] [place] [id number] Jun, Syncope and collapse R55 [facility] [place] [address] [id number] [place] [id number] Jun, [facility] [place] [address] [id number] [place] [id number] May, Bronchitis J40 [facility] [place] [address] [id number] [place] [id number] May, [facility] [place] [address] [id number] [place] [id number] May, [facility] [place] [address] [id number] [place] [id number] Apr, DM w/o complication type II E11.9 [facility] [place] [address] [id number] [place] [id number] Mar, DM w/o complication type II E11.9 ; Innovation Analyst 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, not elsewhere classified J44.9 ; Dysuria R30.0 ; Tinea pedis of right foot B35.3 and Encounter for immunization Z23 [facility] [place] [address] [id number] [place] [id number] 04 Feb, 2017 Medicare welcome exam Z00.00 [facility] [place] [address] [id number] [place] [id number] 07 Jan, 2017 Chronic airway obstruction, not elsewher e classified J44.9 [facility] [place] [address] [id number] [place] [id number] Dec, [facility] [place] [address] [id number] [place] [id number] Dec, DM w/o complication type II E11.9 ; Innovation Analyst 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, not elsewhere classified J44.9 and Acute cystitis with hematuria N30.01 [facility] [place] [address] [id number] [place] [id number] Oct, Encounter for screening for malignant ne oplasm of colon Z12.11 [facility] [place] [address] [id number] [place] [id number] Oct, Medicare welcome exam Z00.00 [facility] [place] [address] [id number] [place] [id number] September, Medicare welcome exam Z00.00 and Encount er for immunization Z23 [facility] [place] [address] [id number] [place] [id number] September, Bronchitis J40 [facility] [place] [address] [id number] [place] [id number] September, Bronchitis J40 [facility] [place] [address] [id number] [place] [id number] September, Other and unspecified hyperlipidemia E78 .5 [facility] [place] [address] [id number] [place] [id number] Aug, DM w/o complication type II E11.9 ; Innovation Analyst 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, not elsewhere classified J44.9 and Other and unspecified hyperlipidemia E78.5 [facility] [place] [address] [id number] [place] [id number] May, DM w/o complication type II E11.9 and Ch ronic airway obstruction, not elsewhere classified J44.9 [facility] [place] [address] [id number] [place] [id number] Apr, Acute cystitis with hematuria N30.01 [facility] [place] [address] [id number] [place] [id number] Feb, DM w/o complication type II E11.9 [facility] [place] [address] [id number] [place] [id number] Feb, Chronic airway obstruction, not elsewher e classified J44.9 ; DM w/o complication type II E11.9 and Encounter for immunization Z23 [facility] [place] [address] [id number] [place] [id number] Dec, [facility] [place] [address] [id number] [place] [id number] Nov, Chronic airway obstruction, not elsewher e classified J44.9 [facility] [place] [address] [id number] [place] [id number] Oct, DM w/o complication type II E11.9 [facility] [place] [address] [facility] [id number] 100[address] [place] [address] Oct, [facility] [place] [address] [id number] [place] [id number] Aug, Chronic airway obstruction, not elsewher e classified J44.9 and DM w/o complication type II E11.9 [facility] [place] [address] [id number] [place] [id number] Aug, Chronic airway obstruction, not elsewher e classified J44.9 [facility] [place] [address] [id number] [place] S [id number] Aug, DM w/o complication type II E11.9 and Ch ronic airway obstruction, not elsewhere classified J44.9 [facility] [place] [address] [id number] [place] S [id number] Jul, [facility] [place] [address] [id number] [place] [id number] Jul, DM w/o complication type II E11.9 [facility] [place] [address] [id number] [place] [id number] Jun, [facility] [place] [address] [id number] [place] [id number] Jun, [facility] [place] [address] [id number] [place] [id number] Jun, Chronic airway obstruction, not elsewher e classified J44.9 ; DM w/o complication type II E11.9 and Other and unspecified hyperlipidemia E78.5 [facility] [place] [address] [facility] [id number] [place] [id number] 11 Jun, 2015 CAD (coronary artery disease) I25.10 and Dizziness R42 [facility] [place] [address] [facility] [id number] [place] [id number] 10 Jun, 2015 Bronchitis J40 [facility] [place] [address] [facility] [id number] [place] [id number] 14 May, 2015 Hematoma T14.8 [facility] [place] [address] [facility] [id number] [place] [id number] May, [facility] [place] [address] [facility] [id number] [place] [id number] May, Bronchitis J40 [facility] [place] [address] [facility] [id number] [place] [id number] Apr, Bronchitis J40 [facility] [place] [address] [place] [id number] [address] [place] [address] Apr, [facility] [place] [address] [facility] [id number] [place] [id number] Mar, [facility] [place] [address] [facility] [id number] [place] [address] [id number] Mar, [facility] [place] [address] [facility] [id number] [place] [id number] Mar, [facility] [place] [address] [facility] [address] [id number] [id number] Mar, [facility] [place] [address] [facility] [id number] [place] [id number] Mar, SOB (shortness of breath) R06.02 [facility] [place] [address] [facility] [id number] [place] [id number] Feb, Urinary tract infection, site not specif ied N39.0 and Hematuria, unspecified R31.9 [facility] [place] [address] [facility] [id number] [place] [id number] Feb, DM w/o complication type II E11.9 ; Enco unter for immunization Z23 and Chronic airway obstruction, not elsewhere classified J44.9 Jeremiah VINT[place] [address] [facility] [id number] [place] [id number] Jan, Jeremiah [place] [address] [facility] [id number] [place] [id number] Jan, [facility] [place] [address] [id number] [place] [id number] Dec, [facility] [place] [address] [id number] [place] [id number] Dec, [facility] [place] [address] [id number] [place] [id number] Dec, [facility] [place] [address] [id number] [place] [id number] Dec, [facility] [place] [address] [id number] [place] [id number] Dec, Blood in the stool 578.1 [facility] [place] [address] [id number] [place] [id number] Nov, [facility] [place] [address] [id number] [place] [id number] Nov, Colon cancer screening V76.51 [facility] [place] [address] [id number] [place] [id number] Nov, Vertigo 780.4 [facility] [place] [address] [id number] [place] [id number] Nov, Routine gynecological examination V72.31 ; Pap test, as part of routine gynecological examination V76.2 ; Breast cancer screening V76.10 ; Postmenopausal V49.81 and Colon cancer screening V76.51 [facility] [place] [address] [id number] [place] [id number] Nov, [facility] [place] [address] [id number] [place] [id number] Nov, [facility] [place] [address] [facility] [id number] [facility] [place] [address] Nov, [facility] [place] [address] [id number] [place] [id number] Oct, Diabetes 250.00 ; COPD (chronic obstruct misha pulmonary disease) 496 and GERD (gastroesophageal reflux disease) 530.81 [facility] [address] [facility] [id number] [address] [place] [address] Oct, [facility] [place] [address] [id number] [place] [id number] Oct, [facility] [place] [address] [id number] [place] [id number] Oct, [facility] [place] [address] [id number] [place] [id number] Oct, Reflux 530.81 [facility] [address] [place] [id number] [address] [place] [address] Oct, [facility] [place] [address] [id number] [place] [id number] Oct, [facility] [place] [address] [id number] [place] [id number] Oct, [facility] [place] [address] [id number] [place] [id number] Oct, Dysuria 788.1 [facility] [place] [address] [id number] [place] [id number] Oct, Dysuria 788.1 [facility] [address] [place] [id number] [address] [place] [address] September, [facility] [place] [address] [facility] [id number] [place] [id number] September, Diabetes 250.00 and COPD (chronic obstru ctive pulmonary disease) 496 [facility] [place] [address] [id number] [place] [id number] September, [facility] [place] [address] [id number] [place] [id number] September, [facility] [place] [address] [facility] [address] [id number] [place] [id number] September, [facility] [place] [address] [id number] [place] [id number] Aug, Osteoarthritis 715.90 ; Diabetes 250.00 and COPD (chronic obstructive pulmonary disease) 496 [facility] [place] [address] [facility] [id number] [place] [id number] Aug, Pure hypercholesterolemia 272.0 ; Essent ial hypertension, benign 401.1 and Loss of weight 783.21 [facility] [address] [facility] [id number] [address] [place] [address], [place] [address] Aug, [facility] [address] [facility] [id number] [address] [place] [address] Aug, [facility] [place] [address] [facility] [id number] [place] [id number] Jul, [facility] [address] [facility] [id number] [address] [place] [phone] Jul, [facility] [address] [facility] [id number] [address] [place] [address], [place] [address] Jun, [facility] [address] [facility] [id number] [address] [place] [address], [place] [address] Jun, [facility] [place] [address] [facility] [id number] [place] [id number] Jun, [facility] [address] [facility] [id number] [address] [place] [address], [place] [address] May, [facility] [place] [address] [facility] [id number] [place] [id number] May, [facility] [place] [address] [facility] [id number] [place] [id number] Apr, [facility] [place] [address] [facility] [id number] [address] [place] [address], [place] [address] Apr, [facility] [place] [address] [facility] [id number] [place] [id number] Apr, [facility] [address] [facility] [id number] [address] [place] [address], [place] [address] Apr, [facility] [place] [address] [facility] [id number] [place] [id number] Apr, [facility] [address] [id number] [address] [place] [address], [place] [address] Apr, [facility] [place] [address] [id number] [place] [id number] Feb, [facility] [address] [id number] [address] [place] [address], [place] [address] Feb, [facility] [place] [address] [id number] [place] [id number] Feb, [facility] [address] [id number] [address] [place] [address], [place] [address] Feb, [facility] [address] [id number] [address] [place] [address], [place] [address] Jan, [facility] [place] [address] [id number] [place] [id number] Jan, [facility] [address] [id number] [address] [place] [address], [place] [address] Jan, [facility] [place] [address] [id number] [place] [id number] Jan, [facility] [address] [id number] [address] [place] [address], [place] [address] Jan, [facility] [address] [id number] [address] [place] [address], [place] [address] Dec, [facility] [address] [id number] [address] [place] [address], [place] [address] Dec, [facility] [place] [address] [id number] [place] [id number] September, [facility] [address] [id number] [address] [place] [address], [place] [address] September, [facility] [address] [id number] [address] [place] [address], [place] [address] September, [facility] [place] [address] [id number] [place] [id number] September, [facility] [place] [address] [id number] [place] [id number] September, [facility] [address] [id number] [address] [place] [address], [place] [address] September, [facility] [place] [address] [id number] [place] [id number] Aug, [facility] [address] [id number] [address] [place] [address], [place] [address] Aug, [facility] [address] [id number] [address] [place] [address], [place] [address] Jul, [facility] [place] [address] [id number] [place] [id number] Jul, [facility] [address] [facility] [id number] [address] [place] [address], [place] [address] Jul, [facility] [place] [address] [id number] [place] [id number] Jun, [facility] [address] [id number] [address] [place] [address], [place] [address] Jun, [facility] [address] [id number] [address] [place] [address], [place] [address] Jun, [facility] [place] [address] [id number] [place] [id number] Jun, [facility] [place] [address] [id number] [place] [id number] May, [facility] [address] [id number] [address] [place] [address], [place] [address] May, [facility] [address] [id number] [address] [place] [address], [place] [address] Apr, [facility] [place] [address] [id number] [place] [id number] Mar, [facility] [address] [id number] [address] [place] [address], [place] [address] Mar, [facility] [address] [id number] [place] [address] Mar, [facility] [address] [id number] [address] [place] [address] Mar, [facility] [place] [address] [id number] [place] [id number] Mar, [facility] [place] [address] [id number] [place] [id number] Feb, [facility] [place] [facility] [address] [facility] [id number] [address] [place] [address] Feb, [facility] [place] [address] [id number] [place] [id number] Feb, [facility] [address] [facility] [id number] [address] [place] [address] Feb, [facility] [place] [address] [id number] [place] [id number] Feb, [facility] [place] [facility] [address] [facility] [id number] [address] [place] [address] Feb, [facility] [place] [address] [id number] [place] [id number] Jan, [facility] [place] [address] [id number] [place] [id number] Dec, [facility] [place] [address] [id number] [place] [id number] Nov, [facility] [place] [address] [id number] [place] [id number] Oct, [facility] [place] [address] [id number] [place] [id number] Oct, [facility] [place] [address] [id number] [place] [id number] Oct, [facility] [place] [address] [id number] [place] [id number] Oct, [facility] [address] [id number] [address] [place] [address] September, [facility] [place] [address] [id number] [place] [id number] September, [facility] [address] [id number] [address] [place] [address], [place] [address] Aug, [facility] [place] [address] [id number] [place] [id number] Aug, [facility] [place] [address] [id number] [place] [id number] Jun, [facility] [place] [address] [id number] [place] [id number] Jun, [facility] [place] [address] [id number] [place] [id number] Feb, [facility] [address] [id number] [address] [place] [address], [place] [address] Feb, [facility] [place] [address] [id number] [place] [id number] Feb, [facility] [place] [address] [id number] [place] [id number] Dec, [facility] [place] [facility] [address] [id number] [address] [place] [address], [place] [address] Dec, [facility] [place] [address] [id number] [place] [id number] Dec, [facility] [place] [address] [id number] [place] [id number] Aug, [facility] [place] [address] [id number] [place] [id number] May, [facility] [place] [address] [id number] [place] [id number] May, [facility] [address] [facility] [id number] [address] [place] [address], [place] [address] Apr, [facility] [address] [facility] [id number] [address] [place] [address] September, [facility] [address] [facility] [id number] [address] [place] [address], [place] [address] Apr, [facility] [address] [facility] [id number] [address] [place] [address] Apr, [facility] [address] [facility] [id number] [address] [place] [address] Apr, IMMUNIZATIONS No Known Immunizations SOCIAL HISTORY Never Assessed REASON FOR VISIT EMR-[facility] PLAN OF CARE VITAL SIGNS MEDICATIONS Unknown [...]
--- OUTSIDE RECORDS SUMMARY | 2019-07-19 23:17 | XMS REPORT ---
Author Author Zoie Abebe Doctor Organization [facility] Address Unknown Phone Unavailable Care Team Providers Care Cad Drafter Name Role Phone Migration, Doctor Unavailable Unavailable PROBLEMS Type Condition ICD9-CM Code APC30-FP Code Onset Dates Condition S tatus SNOMED Code Problem Other and unspecified hyperlipidemia E78.5 Active 95833080 Problem Type 2 diabetes mellitus wit h other specified complication, without long-term current use of insulin E11.69 Active 12898247 Problem Chronic airway obstruction, not elsewhere classified J44.9 Active 33106812 Problem CAD (coronary artery disease) I25.10 Active 20573554 ALLERGIES No Information ENCOUNTERS Encounter Location Date Diagnosis [place] [id number] [place] [address], S [id number] Aug, [place] [id number] [place] [address], Stampt S [id number] Jun, Encounter for Medicare annual wellness e xam Z00.00 ; Type 2 diabetes mellitus with other specified complication, without long-term current use of insulin E11.69 ; Chronic airway obstruction, not elsewhere classified J44.9 ; CAD (coronary artery disease) I25.10 ; Other and unspecified hyperlipidemia E78.5 and Breast cancer screening Z12.31 [place] [id number] [employer] S [id number] Jun, DM w/o complication type II E11.9 ; 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, not elsewhere classified J44.9 ; CAD (coronary artery disease) I25.10 and Vertigo R42 [place] [id number] [employer], Stampt S [id number] Feb, Encounter for immunization Z23 [facility] [address] [place] [id number] [place], Stampt S [id number] Jan, DM w/o complication type II E11.9 and Ch ronic airway obstruction, not elsewhere classified J44.9 [place] [address] [address] [place] [id number] [employer] S [id number] Dec, CAD (coronary artery disease) I25.10 [facility] [place] [address] [id number] [place] [id number] Oct, DM w/o complication type II E11.9 ; 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, not elsewhere classified J44.9 and CAD (coronary artery disease) I25.10 [facility] [place] [address] [id number] [place] [id number] Jul, DM w/o complication type II E11.9 ; 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, not elsewhere classified J44.9 and Infective urethritis N34.2 [facility] [place] [address] [id number] [place] [id number] Jun, Syncope and collapse R55 [facility] [place] [address] [id number] [place] [id number] Jun, [facility] [place] [address] [id number] [place] [id number] May, Bronchitis J40 [facility] [place] [address] [id number] [place] [id number] May, [facility] [place] [address] [id number] [place] [id number] May, [facility] [place] [address] [id number] [place] [id number] Apr, DM w/o complication type II E11.9 [facility] [place] [address] [id number] [place] [id number] Mar, DM w/o complication type II E11.9 ; 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, not elsewhere classified J44.9 ; Dysuria R30.0 ; Tinea pedis of right foot B35.3 and Encounter for immunization Z23 [facility] [place] [address] [id number] [place] [id number] 04 Feb, 2017 Medicare welcome exam Z00.00 [facility] [place] [address] [id number] [place] [id number] 07 Jan, 2017 Chronic airway obstruction, not elsewher e classified J44.9 [facility] [place] [address] [id number] [place] [id number] Dec, [facility] [place] [address] [id number] [place] [id number] Dec, DM w/o complication type II E11.9 ; 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, not elsewhere classified J44.9 and Acute cystitis with hematuria N30.01 [facility] [place] [address] [id number] [place] [id number] Oct, Encounter for screening for malignant ne oplasm of colon Z12.11 [facility] [place] [address] [id number] [place] [id number] Oct, Medicare welcome exam Z00.00 [facility] [place] [address] [id number] [place] [id number] September, Medicare welcome exam Z00.00 and Encount er for immunization Z23 [facility] [place] [address] [id number] [place] [id number] September, Bronchitis J40 [facility] [place] [address] [id number] [place] [id number] September, Bronchitis J40 [facility] [place] [address] [id number] [place] [id number] September, Other and unspecified hyperlipidemia E78 .5 [facility] [place] [address] [id number] [place] [id number] Aug, DM w/o complication type II E11.9 ; 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, 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 and Other and unspecified hyperlipidemia E78.5 [facility] [place] [address] [id number] [place] [id number] May, DM w/o complication type II E11.9 and Ch ronic airway obstruction, not elsewhere classified J44.9 [facility] [place] [address] [id number] [place] [id number] Apr, Acute cystitis with hematuria N30.01 [facility] [place] [address] [id number] [place] [id number] Feb, DM w/o complication type II E11.9 [facility] [place] [address] [id number] [place] [id number] Feb, Chronic airway obstruction, not elsewher e classified J44.9 ; DM w/o complication type II E11.9 and Encounter for immunization Z23 [facility] [place] [address] [id number] [place] [id number] Dec, [facility] [place] [address] [id number] [place] [id number] Nov, Chronic airway obstruction, not elsewher e classified J44.9 [facility] [place] [address] [id number] [place] [id number] Oct, DM w/o complication type II E11.9 [facility] [address] [facility] [id number] 100[address] [place] [address] Oct, [facility] [place] [address] [id number] [place] [id number] Aug, Chronic airway obstruction, not elsewher e classified J44.9 and DM w/o complication type II E11.9 [facility] [place] [address] [id number] [place] [id number] Aug, Chronic airway obstruction, not elsewher e classified J44.9 [facility] [place] [address] [id number] [place] [id number] Aug, DM w/o complication type II E11.9 and Ch ronic airway obstruction, not elsewhere classified J44.9 [facility] [place] [address] [id number] [place] [id number] Jul, [facility] [place] [address] [id number] [place] [id number] Jul, DM w/o complication type II E11.9 [facility] [place] [address] [id number] [place] [id number] Jun, [facility] [place] [address] [id number] [place] [id number] Jun, [facility] [place] [address] [id number] [place] [id number] Jun, Chronic airway obstruction, not elsewher e classified J44.9 ; DM w/o complication type II E11.9 and Other and unspecified hyperlipidemia E78.5 [facility] [place] [address] [facility] [id number] [place] [id number] 11 Jun, 2015 CAD (coronary artery disease) I25.10 and Dizziness R42 [facility] [place] [address] [facility] [id number] [place] [id number] 10 Jun, 2015 Bronchitis J40 [facility] [place] [address] [facility] [id number] [place] [id number] 14 May, 2015 Hematoma T14.8 [facility] [place] [address] [facility] [id number] [place] [id number] May, [facility] [place] [address] [facility] [id number] [place] [id number] May, Bronchitis J40 [facility] [place] [address] [facility] [id number] [place] [id number] Apr, [facility] J40 [facility] [address] [place] [id number] [address] [place] [address] Apr, [facility] [place] [address] [facility] [id number] [place] [id number] Mar, [facility] [place] [id number] [place] [address] [id number] Mar, [facility] [place] [address] [facility] [id number] [place] [id number] Mar, [facility] [place] [address] [id number] [id number] Mar, [facility] [place] [address] [facility] [id number] [place] [id number] Mar, SOB (shortness of breath) R06.02 [facility] [place] [address] [facility] [id number] [place] [id number] Feb, Urinary tract infection, site not specif ied N39.0 and Hematuria, unspecified R31.9 [facility] [place] [address] [facility] [id number] [place] [id number] Feb, DM w/o complication type II E11.9 ; Enco unter for immunization Z23 and Chronic airway obstruction, not elsewhere classified J44.9 Jeremiah [place] [address] [facility] [id number] [place] [id number] Jan, Jeremiah [place] [address] [facility] [id number] [place] [id number] Jan, [facility] [place] [address] [id number] [place] [id number] Dec, [facility] [place] [address] [id number] [place] [id number] Dec, [facility] [place] [address] [id number] [place] [id number] Dec, [facility] [place] [address] [id number] [place] [id number] Dec, [facility] [place] [address] [id number] [place] [id number] Dec, Blood in the stool 578.1 [facility] [place] [address] [id number] [place] [id number] Nov, [facility] [place] [address] [id number] [place] [id number] Nov, Colon cancer screening V76.51 [facility] [place] [address] [id number] [place] [id number] Nov, Vertigo 780.4 [facility] [place] [address] [id number] [place] [id number] Nov, Routine gynecological examination V72.31 ; Pap test, as part of routine gynecological examination V76.2 ; Breast cancer screening V76.10 ; Postmenopausal V49.81 and Colon cancer screening V76.51 [facility] [place] [address] [id number] [place] [id number] Nov, [facility] [place] [address] [id number] [place] [id number] Nov, [facility] [address] [facility] [id number] [facility] [place] [address] Nov, [facility] [place] [address] [id number] [place] [id number] Oct, Diabetes 250.00 ; COPD (chronic obstruct misha pulmonary disease) 496 and GERD (gastroesophageal reflux disease) 530.81 [facility] [address] [facility] [id number] [address] [place] [address] Oct, [facility] [place] [address] [id number] [place] [id number] Oct, [facility] [place] [address] [id number] [place] [id number] Oct, [facility] [place] [address] [id number] [place] [id number] Oct, Reflux 530.81 [facility] [address] [place] [id number] [address] [place] [address] Oct, [facility] [place] [address] [place] [id number] [place] [id number] Oct, [facility] [place] [address] [id number] [place] [id number] Oct, [facility] [place] [address] [id number] [place] [id number] Oct, Dysuria 788.1 [facility] [place] [address] [place] [id number] [place] [id number] Oct, Dysuria 788.1 [facility] [address] [place] [id number] [address] [place] [address] September, [facility] [place] [address] [facility] [id number] [place] [id number] September, Diabetes 250.00 and COPD (chronic obstru ctive pulmonary disease) 496 [facility] [place] [address] [id number] [place] [id number] September, [facility] [place] [address] [id number] [place] [id number] September, [facility] [place] [address] [id number] [id number] September, [facility] [place] [address] [id number] [place] [id number] Aug, Osteoarthritis 715.90 ; Diabetes 250.00 and COPD (chronic obstructive pulmonary disease) 496 [facility] [place] [address] [facility] [id number] [place] [id number] Aug, Pure hypercholesterolemia 272.0 ; Essent ial hypertension, benign 401.1 and Loss of weight 783.21 [facility] [place] [address] [facility] [id number] [address] [place] [address], [place] [address] Aug, [facility] [address] [facility] [id number] [address] [place] [address] Aug, [facility] [place] [address] [facility] [id number] [place] [id number] Jul, [facility] [address] [facility] [id number] [address] [place] [address] Jul, [facility] [address] [facility] [id number] [address] [place] [address], [place] [address] Jun, [facility] [address] [facility] [id number] [address] [place] [address], [place] [address] Jun, [facility] [place] [address] [facility] [id number] [place] [id number] Jun, [facility] [address] [facility] [id number] [address] [place] [address], [place] [address] May, [facility] [place] [address] [facility] [id number] [place] [id number] May, [facility] [place] [address] [facility] [id number] [place] [id number] Apr, [facility] [address] [facility] [id number] [address] [place] [address], [place] [address] Apr, [facility] [place] [address] [facility] [id number] [place] [id number] Apr, [facility] [address] [facility] [id number] [address] [place] [address], [place] [address] Apr, [facility] [place] [address] [facility] [id number] [place] [id number] Apr, [facility] [address] [id number] [address] [place] [address], [place] [address] Apr, [facility] [place] [address] [id number] [place] [id number] Feb, [facility] [address] [id number] [address] [place] [address], [place] [address] Feb, [facility] [place] [address] [id number] [place] [id number] Feb, [facility] [address] [id number] [address] [place] [address], [place] [address] Feb, [facility] [address] [id number] [address] [place] [address], [place] [address] Jan, [facility] [place] [address] [id number] [place] [id number] Jan, [facility] [address] [id number] [address] [place] [address], [place] [address] Jan, [facility] [place] [address] [id number] [place] [id number] Jan, [facility] [address] [id number] [address] [place] [address], [place] [address] Jan, [facility] [address] [id number] [address] [place] [address], [place] [address] Dec, [facility] [address] [id number] [address] [place] [address], [place] [address] Dec, [facility] [place] [address] [id number] [place] [id number] September, [facility] [address] [id number] [address] [place] [address], [place] [address] September, [facility] [address] [id number] [address] [place] [address], [place] [address] September, [facility] [place] [address] [id number] [place] [id number] September, [facility] [place] [address] [id number] [place] [id number] September, [facility] [address] [id number] [address] [place] [address], [place] [address] September, [facility] [place] [address] [id number] [place] [id number] Aug, [facility] [address] [id number] [address] [place] [address], [place] [address] Aug, [facility] [address] [id number] [address] [place] [address], [place] [address] Jul, [facility] [place] [address] [id number] [place] [id number] Jul, [facility] [address] [facility] [id number] [address] [place] [address], [place] [address] Jul, [facility] [place] [address] [id number] [place] [id number] Jun, [facility] [address] [id number] [address] [place] [address], [place] [address] Jun, [facility] [address] [id number] [address] [place] [address], [place] [address] Jun, [facility] [place] [address] [id number] [place] [id number] Jun, [facility] [place] [address] [id number] [place] [id number] May, [facility] [address] [id number] [address] [place] [address], [place] [address] May, [facility] [address] [id number] [address] [place] [address], [place] [address] Apr, [facility] [place] [address] [id number] [place] [id number] Mar, [facility] [address] [id number] [address] [place] [address], [place] [address] Mar, [facility] [address] [id number] [place] [address] Mar, [facility] [address] [id number] [address] [place] [address] Mar, [facility] [place] [address] [id number] [place] [id number] Mar, [facility] [place] [address] [id number] [place] [id number] Feb, [facility] [place] [facility] [address] [facility] [id number] [address] [place] [address] Feb, [facility] [place] [address] [id number] [place] [id number] Feb, [facility] [address] [facility] [id number] [address] [place] [address] Feb, [facility] [place] [address] [id number] [place] [id number] Feb, [facility] [place] [facility] [address] [facility] [id number] [address] [place] [address] Feb, [facility] [place] [address] [id number] [place] [id number] Jan, [facility] [place] [address] [id number] [place] [id number] Dec, [facility] [place] [address] [id number] [place] [id number] Nov, [facility] [place] [address] [id number] [place] [id number] Oct, [facility] [place] [address] [id number] [place] [id number] Oct, [facility] [place] [address] [id number] [place] [id number] Oct, [facility] [place] [address] [id number] [place] [id number] Oct, [facility] [address] [id number] [address] [place] [address] September, [facility] [place] [address] [id number] [place] [id number] September, [facility] [address] [id number] [address] [place] [address], [place] [address] Aug, [facility] [place] [address] [id number] [place] [id number] Aug, [facility] [place] [address] [id number] [place] [id number] Jun, [facility] [place] [address] [id number] [place] [id number] Jun, [facility] [place] [address] [id number] [place] [id number] Feb, [facility] [address] [id number] [address] [place] [address], [place] [address] Feb, [facility] [place] [address] [id number] [place] [id number] Feb, [facility] [place] [address] [id number] [place] [id number] Dec, [facility] [place] [facility] [address] [id number] [address] [place] [address], [place] [address] Dec, [facility] [place] [address] [id number] [place] [id number] Dec, [facility] [place] [address] [id number] [place] [id number] Aug, [facility] [place] [address] [id number] [place] [id number] May, [facility] [place] [address] [id number] [place] [id number] May, [facility] [address] [facility] [id number] [address] [place] [address], [place] [address] Apr, [facility] [address] [facility] [id number] [address] [place] [address] September, [facility] [address] [facility] [id number] [address] [place] [address], [place] [address] Apr, [facility] [address] [facility] [id number] [address] [place] [address] Apr, [facility] [address] [facility] [id number] [address] [place] [address] Apr, IMMUNIZATIONS No Known Immunizations SOCIAL HISTORY Never Assessed REASON FOR VISIT EMR-[facility] [place] PLAN OF CARE VITAL SIGNS MEDICATIONS Unknown [...]
--- OUTSIDE RECORDS SUMMARY | 2019-07-19 23:17 | XMS REPORT ---
Author Author Zoie Abebe Doctor Organization [facility] Address Unknown Phone Unavailable Care Team Providers [employer] Professor Name Role Phone Migration, Doctor Unavailable Unavailable PROBLEMS Type Condition ICD9-CM Code VAQ30-PR Code Onset Dates Condition S tatus SNOMED Code Problem Other and unspecified hyperlipidemia E78.5 Active 80726084 Problem Type 2 diabetes mellitus wit h other specified complication, without long-term current use of insulin E11.69 Active 73033306 Problem Chronic airway obstruction, not elsewhere classified J44.9 Active 62923059 Problem CAD (coronary artery disease) I25.10 Active 99127540 ALLERGIES No Information ENCOUNTERS Encounter Location Date Diagnosis [place] [id number] [place] [id number] Jun, Encounter for Medicare annual wellness e xam Z00.00 ; Type 2 diabetes mellitus with other specified complication, without long-term current use of insulin E11.69 ; Chronic airway obstruction, not elsewhere classified J44.9 ; CAD (coronary artery disease) I25.10 ; Other and unspecified hyperlipidemia E78.5 and Breast cancer screening Z12.31 [facility] [address] [id number] [place] [id number] Jun, DM w/o complication type II E11.9 ; 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, not elsewhere classified J44.9 ; CAD (coronary artery disease) I25.10 and Vertigo R42 [facility] [address] [facility] [id number] [place] [id number] Feb, Encounter for immunization Z23 [facility] [address] [facility] [id number] [place] [id number] Jan, DM w/o complication type II E11.9 and Ch ronic airway obstruction, not elsewhere classified J44.9 [facility] [address] [facility] [id number] [place] [id number] Dec, CAD (coronary artery disease) I25.10 [facility] [place] [address] [id number] [place] [id number] Oct, DM w/o complication type II E11.9 ; 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, not elsewhere classified J44.9 and CAD (coronary artery disease) I25.10 [facility] [place] [address] [id number] [place] [id number] Jul, DM w/o complication type II E11.9 ; 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, not elsewhere classified J44.9 and Infective urethritis N34.2 [facility] [place] [address] [id number] [place] [id number] Jun, Syncope and collapse R55 [facility] [place] [address] [id number] [place] [id number] Jun, [facility] [place] [address] [id number] [place] [id number] May, Bronchitis J40 [facility] [place] [address] [id number] [place] [id number] May, [facility] [place] [address] [id number] [place] [id number] May, [facility] [place] [address] [id number] [place] [id number] Apr, DM w/o complication type II E11.9 [facility] [place] [address] [id number] [place] [id number] Mar, DM w/o complication type II E11.9 ; 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, not elsewhere classified J44.9 ; Dysuria R30.0 ; Tinea pedis of right foot B35.3 and Encounter for immunization Z23 [facility] [place] [address] [id number] [place] [id number] Feb, Medicare welcome exam Z00.00 [facility] [place] [address] [id number] [place] [id number] Jan, Chronic airway obstruction, not elsewher e classified J44.9 [facility] [place] [address] [id number] [place] [id number] Dec, [facility] [place] [address] [id number] [place] [id number] Dec, DM w/o complication type II E11.9 ; 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, not elsewhere classified J44.9 and Acute cystitis with hematuria N30.01 [facility] [place] [address] [id number] [place] [id number] 05 Oct, 2016 Encounter for screening for malignant ne oplasm of colon Z12.11 [facility] [place] [address] [id number] [place] [id number] 02 Oct, 2016 Medicare welcome exam Z00.00 [facility] [place] [address] [id number] [place] [id number] September, Medicare welcome exam Z00.00 and Encount er for immunization Z23 [facility] [place] [address] [id number] [place] [id number] September, Bronchitis J40 [facility] [place] [address] [id number] [place] [id number] September, Bronchitis J40 [facility] [place] [address] [id number] [place] [id number] September, Other and unspecified hyperlipidemia E78 .5 [facility] [place] [address] [id number] [place] [id number] Aug, DM w/o complication type II E11.9 ; 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, not elsewhere classified J44.9 and Other and unspecified hyperlipidemia E78.5 [facility] [place] [address] [id number] [place] [id number] May, DM w/o complication type II E11.9 and Ch ronic airway obstruction, not elsewhere classified J44.9 [facility] [place] [address] [id number] [place] [id number] Apr, Acute cystitis with hematuria N30.01 [facility] [place] [address] [id number] [place] [id number] Feb, DM w/o complication type II E11.9 [facility] [place] [address] [id number] [place] [id number] Feb, Chronic airway obstruction, not elsewher e classified J44.9 ; DM w/o complication type II E11.9 and Encounter for immunization Z23 [facility] [place] [address] [id number] [place] [id number] Dec, [facility] [place] [address] [id number] [place] [id number] Nov, Chronic airway obstruction, not elsewher e classified J44.9 [facility] [place] [address] [id number] [place] [id number] Oct, DM w/o complication type II E11.9 [facility] [address] [id number] [place] [address] Oct, [facility] [place] [address] [id number] [place] [id number] Aug, Chronic airway obstruction, not elsewher e classified J44.9 and DM w/o complication type II E11.9 [facility] [place] [address] [id number] [place] [id number] Aug, Chronic airway obstruction, not elsewher e classified J44.9 [facility] [place] [address] [id number] [place] [id number] Aug, DM w/o complication type II E11.9 and Ch ronic airway obstruction, not elsewhere classified J44.9 [facility] [place] [address] [id number] [place] [id number] Jul, [facility] [place] [address] [id number] [place] [id number] Jul, DM w/o complication type II E11.9 [facility] [place] [address] [id number] [place] [id number] Jun, [facility] [place] [address] [id number] [place] [id number] Jun, [facility] [place] [address] [id number] [place] [id number] Jun, Chronic airway obstruction, not elsewher e classified J44.9 ; DM w/o complication type II E11.9 and Other and unspecified hyperlipidemia E78.5 [facility] [place] [address] [id number] [place] [id number] 11 Jun, 2015 CAD (coronary artery disease) I25.10 and Dizziness R42 [facility] [place] [address] [facility] [id number] [place] [id number] 10 Jun, 2015 Bronchitis J40 [facility] [place] [address] [facility] [id number] [place] [id number] May, Hematoma T14.8 [facility] [place] [address] [facility] [id number] [place] [id number] May, [facility] [place] [address] [facility] [id number] [place] [id number] May, Bronchitis J40 [facility] [place] [address] [facility] [id number] [place] [id number] Apr, Bronchitis J40 [facility] [address] [facility] [id number] [address] [place] [address] Apr, [facility] [place] [address] [id number] [place] [id number] Mar, [facility] [address] [id number] [id number] Mar, [facility] [place] [address] [id number] [place] [id number] Mar, [facility] [address] [address] [id number] [id number] Mar, [facility] [place] [address] [id number] [place] [id number] Mar, SOB (shortness of breath) R06.02 [facility] [place] [address] [facility] [id number] [place] [id number] Feb, Urinary tract infection, site not specif ied N39.0 and Hematuria, unspecified R31.9 [facility] [place] [address] [id number] [place] [id number] Feb, DM w/o complication type II E11.9 ; Enco unter for immunization Z23 and Chronic airway obstruction, not elsewhere classified J44.9 [facility] [address] [id number] [place] [id number] Jan, [facility] [address] [facility] [id number] [place] [id number] Jan, [facility] [place] [address] [id number] [place] [id number] Dec, [facility] [place] [address] [id number] [place] [id number] Dec, [facility] [place] [address] [id number] [place] [id number] Dec, [facility] [place] [address] [id number] [place] [id number] Dec, [facility] [place] [address] [id number] [place] [id number] Dec, Blood in the stool 578.1 [facility] [place] [address] [id number] [place] [id number] Nov, [facility] [place] [address] [id number] [place] [id number] Nov, Colon cancer screening V76.51 [facility] [place] [place] [address] [id number] [place] [id number] Nov, Vertigo 780.4 [facility] [place] [address] [id number] [place] [id number] Nov, Routine gynecological examination V72.31 ; Pap test, as part of routine gynecological examination V76.2 ; Breast cancer screening V76.10 ; Postmenopausal V49.81 and Colon cancer screening V76.51 [facility] [place] [place] [address] [id number] [place] [id number] Nov, [facility] [place] [address] [facility] [id number] [place] [id number] Nov, [facility] [address] [facility] [id number] [facility] [place] [address] Nov, [facility] [place] [address] [facility] [id number] [place] [id number] Oct, Diabetes 250.00 ; COPD (chronic obstruct misha pulmonary disease) 496 and GERD (gastroesophageal reflux disease) 530.81 [facility] [address] [facility] [id number] [address] [place] [address] Oct, [facility] [place] [address] [id number] [place] [id number] Oct, [facility] [place] [address] [id number] [place] [id number] Oct, [facility] [place] [address] [id number] [place] [id number] Oct, Reflux 530.81 [facility] [address] [facility] [id number] [address] [place] [address] Oct, [facility] [place] [address] [id number] [place] [id number] Oct, [facility] [place] [address] [id number] [place] [id number] Oct, [facility] [place] [address] [id number] [place] [id number] Oct, Dysuria 788.1 [facility] [place] [address] [id number] [place] [id number] Oct, Dysuria 788.1 [facility] [address] [facility] [id number] [address] [place] [address] September, [facility] [place] [address] [id number] [place] [id number] September, Diabetes 250.00 and COPD (chronic obstru ctive pulmonary disease) 496 [facility] [place] [address] [id number] [place] [id number] September, [facility] [place] [address] [id number] [place] [id number] September, [facility] [address] [facility] [id number] [id number] September, [facility] [place] [address] [id number] [place] [id number] Aug, Osteoarthritis 715.90 ; Diabetes 250.00 and COPD (chronic obstructive pulmonary disease) 496 [facility] [place] [address] [id number] [place] [id number] Aug, Pure hypercholesterolemia 272.0 ; Essent ial hypertension, benign 401.1 and Loss of weight 783.21 [facility] [place] [facility] [address] [id number] [address] [place] [address], [place] [address] 14 Aug, 2014 [facility] [place] [facility] [address] [facility] [id number] [address] [place] [address] Aug, [facility] [place] [place] [address] [id number] [place] [id number] Jul, [facility] [place] [facility] [address] [facility] [id number] [address] [place] [address] Jul, [facility] [place] [facility] [address] [facility] [id number] [address] [place] [address] Jun, [facility] [place] [facility] [address] [facility] [id number] [address] [place] [address] Jun, [facility] [place] [place] [address] [facility] [id number] [place] [id number] Jun, [facility] [place] [facility] [address] [facility] [id number] [address] [place] [address] May, [facility] [place] [place] [address] [id number] [place] [id number] May, [facility] [place] [address] [id number] [place] [id number] Apr, [facility] [place] [facility] [address] [id number] [address] [place] [address], [place] [address] Apr, [facility] [place] [address] [id number] [place] [id number] Apr, [facility] [place] [facility] [address] [facility] [id number] [address] [place] [address] Apr, [facility] [place] [address] [facility] [id number] [place] [id number] Apr, [facility] [address] [facility] [id number] [address] [place] [address] Apr, [facility] [place] [address] [id number] [place] [id number] Feb, [facility] [address] [id number] [address] [place] [address], [place] [address] Feb, [facility] [place] [address] [id number] [place] [id number] Feb, [facility] [address] [id number] [address] [place] [address], [place] [address] Feb, [facility] [address] [id number] [address] [place] [address], [place] [address] Jan, [facility] [place] [address] [id number] [place] [id number] Jan, [facility] [address] [id number] [address] [place] [address], [place] [address] Jan, [facility] [place] [address] [id number] [place] [id number] Jan, [facility] [address] [id number] [address] [place] [address], [place] [address] Jan, [facility] [address] [id number] [address] [place] [address], [place] [address] Dec, [facility] [address] [id number] [address] [place] [address], [place] [address] Dec, [facility] [place] [address] [id number] [place] [id number] September, [facility] [address] [id number] [address] [place] [address], [place] [address] September, [facility] [address] [id number] [address] [place] [address], [place] [address] September, [facility] [place] [address] [id number] [place] [id number] September, [facility] [place] [address] [id number] [place] [id number] September, [facility] [address] [id number] [address] [place] [address], [place] [address] September, [facility] [place] [address] [id number] [place] [id number] Aug, [facility] [address] [id number] [address] [place] [address], [place] [address] Aug, [facility] [address] [id number] [address] [place] [address], [place] [address] Jul, [facility] [place] [address] [id number] [place] [id number] Jul, [facility] [address] [id number] [address] [place] [address], [place] [address] Jul, [facility] [place] [address] [id number] [place] [id number] Jun, [facility] [address] [id number] [address] [place] [address], [place] [address] Jun, [facility] [address] [id number] [address] [place] [address], [place] [address] Jun, [facility] [place] [address] [id number] [place] [id number] Jun, [facility] [place] [address] [id number] [place] [id number] May, [facility] [address] [id number] [address] [place] [address], [place] [address] May, [facility] [address] [id number] [address] [place] [address], [place] [address] Apr, [facility] [place] [address] [id number] [place] [id number] Mar, [facility] [address] [id number] [address] [place] [address], [place] [address] Mar, [facility] [address] [id number] [address] [place] [address], [place] [address] Mar, [facility] [address] [id number] [place] [address] Mar, [facility] [place] [address] [id number] [place] [id number] Mar, [facility] [place] [address] [id number] [place] [id number] Feb, [facility] [place] [facility] [address] [facility] [id number] [address] [place] [address] Feb, [facility] [place] [address] [id number] [place] [id number] Feb, [facility] [place] [facility] [address] [id number] [address] [place] [address] Feb, [facility] [place] [address] [id number] [place] [id number] Feb, [facility] [place] [facility] [address] [facility] [id number] [address] [place] [address] Feb, [facility] [place] [address] [id number] [place] [id number] Jan, [facility] [place] [address] [id number] [place] [id number] Dec, [facility] [place] [address] [id number] [place] [id number] Nov, [facility] [place] [address] [id number] [place] [id number] Oct, [facility] [place] [address] [id number] [place] [id number] Oct, [facility] [place] [address] [id number] [place] [id number] Oct, [facility] [place] [address] [id number] [place] [id number] Oct, [facility] [address] [facility] [id number] [address] [place] [address] September, [facility] [place] [address] [id number] [place] [id number] September, [facility] [place] [facility] [address] [id number] [address] [place] [address], [place] [address] Aug, [facility] [place] [address] [id number] [place] [id number] Aug, [facility] [place] [address] [id number] [place] [id number] Jun, [facility] [place] [address] [id number] [place] [id number] Jun, [facility] [place] [address] [id number] [place] [id number] Feb, [facility] [place] [facility] [address] [id number] [address] [place] [address] Feb, [facility] [place] [address] [id number] [place] [id number] Feb, [facility] [place] [address] [id number] [place] [id number] Dec, [facility] [place] [facility] [address] [facility] [id number] [address] [place] [address] Dec, [facility] [place] [address] [id number] [place] [id number] Dec, [facility] [place] [address] [id number] [place] [id number] Aug, [facility] [place] [address] [id number] [place] [id number] May, [facility] [place] [address] [id number] [place] [id number] May, [facility] [place] [facility] [address] [facility] [id number] [address] [place] [address] Apr, [facility] [address] [facility] [id number] [address] [place] [address] September, [facility] [address] [facility] [id number] [address] [place] [address] Apr, [facility] [address] [facility] [id number] [address] [place] [address] Apr, [facility] [address] [facility] [id number] [address] [place] [address] 10 Apr, 2010 IMMUNIZATIONS No Known Immunizations SOCIAL HISTORY Never Assessed REASON FOR VISIT EMR-[facility] [place] PLAN OF CARE VITAL SIGNS MEDICATIONS No [...]
--- OUTSIDE RECORDS SUMMARY | 2019-07-19 23:17 | XMS REPORT ---
Author Author Zoie Abebe Doctor Organization [facility] Address Unknown Phone Unavailable Care Team Providers Care Data Conversion Developer Name Role Phone Migration, Doctor Unavailable Unavailable PROBLEMS Type Condition ICD9-CM Code ABG74-MG Code Onset Dates Condition S tatus SNOMED Code Problem Other and unspecified hyperlipidemia E78.5 Active 06756730 Problem Type 2 diabetes mellitus wit h other specified complication, without long-term current use of insulin E11.69 Active 75922739 Problem Chronic airway obstruction, not elsewhere classified J44.9 Active 27671921 Problem CAD (coronary artery disease) I25.10 Active 02994929 ALLERGIES No Information ENCOUNTERS Encounter Location Date Diagnosis [place] [id number] [place] [id number] Jun, Encounter for Medicare annual wellness e xam Z00.00 ; Type 2 diabetes mellitus with other specified complication, without long-term current use of insulin E11.69 ; Chronic airway obstruction, not elsewhere classified J44.9 ; CAD (coronary artery disease) I25.10 ; Other and unspecified hyperlipidemia E78.5 and Breast cancer screening Z12.31 [facility] [address] [id number] [place] [id number] Jun, DM w/o complication type II E11.9 ; 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, 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 ; CAD (coronary artery disease) I25.10 and Vertigo R42 [facility] [address] [facility] [id number] [place] [id number] Feb, Encounter for immunization Z23 [facility] [address] [facility] [id number] [place] [id number] Jan, DM w/o complication type II E11.9 and Ch ronic airway obstruction, not elsewhere classified J44.9 [facility] [address] [facility] [id number] [place] [id number] Dec, CAD (coronary artery disease) I25.10 [facility] [place] [address] [id number] [place] [id number] Oct, DM w/o complication type II E11.9 ; 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, not 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.9 and CAD (coronary artery disease) I25.10 [facility] [place] [address] [id number] [place] [id number] Jul, DM w/o complication type II E11.9 ; 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, not 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.9 and Infective urethritis N34.2 [facility] [place] [address] [id number] [place] [id number] Jun, Syncope and collapse R55 [facility] [place] [address] [id number] [place] [id number] Jun, [facility] [place] [address] [id number] [place] [id number] May, Bronchitis J40 [facility] [place] [address] [id number] [place] [id number] May, [facility] [place] [address] [id number] [place] [id number] May, [facility] [place] [address] [id number] [place] [id number] Apr, DM w/o complication type II E11.9 [facility] [place] [address] [id number] [place] [id number] Mar, DM w/o complication type II E11.9 ; 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, not 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.9 ; Dysuria R30.0 ; Tinea pedis of right foot B35.3 and Encounter for immunization Z23 [facility] [place] [address] [id number] [place] [id number] Feb, Medicare welcome exam Z00.00 [facility] [place] [address] [id number] [place] [id number] Jan, Chronic airway obstruction, not elsewher e classified J44.9 [facility] [place] [address] [id number] [place] [id number] Dec, [facility] [place] [address] [id number] [place] [id number] Dec, DM w/o complication type II E11.9 ; 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, not 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.9 and Acute cystitis with hematuria N30.01 [facility] [place] [address] [id number] [place] [id number] 05 Oct, 2016 Encounter for screening for malignant ne oplasm of colon Z12.11 [facility] [place] [address] [id number] [place] [id number] 02 Oct, 2016 Medicare welcome exam Z00.00 [facility] [place] [address] [id number] [place] [id number] September, Medicare welcome exam Z00.00 and Encount er for immunization Z23 [facility] [place] [address] [id number] [place] [id number] September, Bronchitis J40 [facility] [place] [address] [id number] [place] [id number] September, Bronchitis J40 [facility] [place] [address] [id number] [place] [id number] September, Other and unspecified hyperlipidemia E78 .5 [facility] [place] [address] [id number] [place] [id number] Aug, DM w/o complication type II E11.9 ; 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, 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.9 and Other and unspecified hyperlipidemia E78.5 [facility] [place] [address] [id number] [place] [id number] May, DM w/o complication type II E11.9 and Ch ronic airway obstruction, not elsewhere classified J44.9 [facility] [place] [address] [id number] [place] [id number] Apr, Acute cystitis with hematuria N30.01 [facility] [place] [address] [id number] [place] [id number] Feb, DM w/o complication type II E11.9 [facility] [place] [address] [id number] [place] [id number] Feb, Chronic airway obstruction, not elsewher e classified J44.9 ; DM w/o complication type II E11.9 and Encounter for immunization Z23 [facility] [place] [address] [id number] [place] [id number] Dec, [facility] [place] [address] [id number] [place] [id number] Nov, Chronic airway obstruction, not elsewher e classified J44.9 [facility] [place] [address] [id number] [place] [id number] Oct, DM w/o complication type II E11.9 [facility] [address] [id number] 100KS [place] [address] Oct, [facility] [place] [address] [id number] [place] [id number] Aug, Chronic airway obstruction, not elsewher e classified J44.9 and DM w/o complication type II E11.9 [facility] [place] [address] [id number] [place] [id number] Aug, Chronic airway obstruction, not elsewher e classified J44.9 [facility] [place] [address] [id number] [place] [id number] Aug, DM w/o complication type II E11.9 and Ch ronic airway obstruction, not elsewhere classified J44.9 [facility] [place] [address] [id number] [place] [id number] Jul, [facility] [place] [address] [id number] [place] [id number] Jul, DM w/o complication type II E11.9 [facility] [place] [address] [id number] [place] [id number] Jun, [facility] [place] [address] [id number] [place] [id number] Jun, [facility] [place] [address] [id number] [place] [id number] Jun, Chronic airway obstruction, not elsewher e classified J44.9 ; DM w/o complication type II E11.9 and Other and unspecified hyperlipidemia E78.5 [facility] [place] [address] [id number] [place] [id number] 11 Jun, 2015 CAD (coronary artery disease) I25.10 and Dizziness R42 [facility] [place] [address] [facility] [id number] [place] [id number] 10 Jun, 2015 Bronchitis J40 [facility] [place] [address] [facility] [id number] [place] [id number] May, Hematoma T14.8 [facility] [place] [address] [facility] [id number] [place] [id number] May, [facility] [place] [address] [facility] [id number] [place] [id number] May, Bronchitis J40 [facility] [place] [address] [facility] [id number] [place] [id number] Apr, Bronchitis J40 [facility] [address] [facility] [id number] [address] [place] [address] Apr, [facility] [place] [address] [id number] [place] [id number] Mar, [facility] [address] [id number] [id number] Mar, [facility] [place] [address] [id number] [place] [id number] Mar, [facility] [address] [id number] [id number] Mar, [facility] [place] [address] [id number] [place] [id number] Mar, SOB (shortness of breath) R06.02 [facility] [place] [address] [facility] [id number] [place] [id number] Feb, Urinary tract infection, site not specif ied N39.0 and Hematuria, unspecified R31.9 [facility] [place] [address] [id number] [place] [id number] Feb, DM w/o complication type II E11.9 ; Enco unter for immunization Z23 and Chronic airway obstruction, not elsewhere classified J44.9 [facility] [address] [id number] JOCELIN ELLIS [id number] Jan, [facility] [address] [facility] [id number] JOCELIN ELLIS [id number] Jan, [facility] [place] [address] [id number] [place] [id number] Dec, [facility] [place] [address] [id number] [place] [id number] Dec, [facility] [place] [address] [id number] [place] [id number] Dec, [facility] [place] [address] [id number] [place] [id number] Dec, [facility] [place] [address] [id number] [place] [id number] Dec, Blood in the stool 578.1 [facility] [place] [address] [id number] [place] [id number] Nov, [facility] [place] [address] [id number] [place] [id number] Nov, Colon cancer screening V76.51 [facility] [place] [address] [id number] [place] [id number] Nov, Vertigo 780.4 [facility] [place] [address] [id number] [place] [id number] Nov, Routine gynecological examination V72.31 ; Pap test, as part of routine gynecological examination V76.2 ; Breast cancer screening V76.10 ; Postmenopausal V49.81 and Colon cancer screening V76.51 [facility] [place] [address] [id number] [place] [id number] Nov, [facility] [place] [address] [facility] [id number] [place] [id number] Nov, [facility] [address] [facility] [id number] [facility] [place] [address] Nov, [facility] [place] [address] [facility] [id number] [place] [id number] Oct, Diabetes 250.00 ; COPD (chronic obstruct misha pulmonary disease) 496 and GERD (gastroesophageal reflux disease) 530.81 [facility] [address] [facility] [id number] [address] [place] [address] Oct, [facility] [place] [address] [id number] [place] [id number] Oct, [facility] [place] [address] [id number] [place] [id number] Oct, [facility] [place] [address] [id number] [place] [id number] Oct, Reflux 530.81 [facility] [address] [facility] [id number] [address] [place] [address] Oct, [facility] [place] [address] [id number] [place] [id number] Oct, [facility] [place] [address] [id number] [place] [id number] Oct, [facility] [place] [address] [id number] [place] [id number] Oct, Dysuria 788.1 [facility] [place] [address] [id number] [place] [id number] Oct, Dysuria 788.1 [facility] [address] [facility] [id number] [address] [place] [address] September, [facility] [place] [address] [id number] [place] [id number] September, Diabetes 250.00 and COPD (chronic obstru ctive pulmonary disease) 496 [facility] [place] [address] [id number] [place] [id number] September, [facility] [place] [address] [id number] [place] [id number] September, [facility] [address] [facility] [id number][place] [id number] September, [facility] [place] [address] [id number] [place] [id number] Aug, Osteoarthritis 715.90 ; Diabetes 250.00 and COPD (chronic obstructive pulmonary disease) 496 [facility] [place] [address] [id number] [place] [id number] Aug, Pure hypercholesterolemia 272.0 ; Essent ial hypertension, benign 401.1 and Loss of weight 783.21 [facility] [place] [facility] [address] [id number] [address] [place] [address], [place] [address] 14 Aug, 2014 [facility] [place] [facility] [address] [facility] [id number] [address] [place] [address] Aug, [facility] [place] [address] [id number] [place] [id number] Jul, [facility] [place] [facility] [address] [facility] [id number] [address] [place] [address] Jul, [facility] [place] [facility] [address] [facility] [id number] [address] [place] [address] Jun, [facility] [place] [facility] [address] [facility] [id number] [address] [place] [address] Jun, [facility] [place] [address] [facility] [id number] [place] [id number] Jun, [facility] [place] [facility] [address] [facility] [id number] [address] [place] [address] May, [facility] [place] [address] [id number] [place] [id number] May, [facility] [place] [address] [id number] [place] [id number] Apr, [facility] [place] [facility] [address] [id number] [address] [place] [address], [place] [address] Apr, [facility] [place] [address] [id number] [place] [id number] Apr, [facility] [place] [facility] [address] [facility] [id number] [address] [place] [address] Apr, [facility] [place] [address] [facility] [id number] [place] [id number] Apr, [facility] [address] [facility] [id number] [address] [place] [address] Apr, [facility] [place] [address] [id number] [place] [id number] Feb, [facility] [address] [id number] [address] [place] [address], [place] [address] Feb, [facility] [place] [address] [id number] [place] [id number] Feb, [facility] [address] [id number] [address] [place] [address], [place] [address] Feb, [facility] [address] [id number] [address] [place] [address], [place] [address] Jan, [facility] [place] [address] [id number] [place] [id number] Jan, [facility] [address] [id number] [address] [place] [address], [place] [address] Jan, [facility] [place] [address] [id number] [place] [id number] Jan, [facility] [address] [id number] [address] [place] [address], [place] [address] Jan, [facility] [address] [id number] [address] [place] [address], [place] [address] Dec, [facility] [address] [id number] [address] [place] [address], [place] [address] Dec, [facility] [place] [address] [id number] [place] [id number] September, [facility] [address] [id number] [address] [place] [address], [place] [address] September, [facility] [address] [id number] [address] [place] [address], [place] [address] September, [facility] [place] [address] [id number] [place] [id number] September, [facility] [place] [address] [id number] [place] [id number] September, [facility] [address] [id number] [address] [place] [address], [place] [address] September, [facility] [place] [address] [id number] [place] [id number] Aug, [facility] [address] [id number] [address] [place] [address], [place] [address] Aug, [facility] [address] [id number] [address] [place] [address], [place] [address] Jul, [facility] [place] [address] [id number] [place] [id number] Jul, [facility] [address] [id number] [address] [place] [address], [place] [address] Jul, [facility] [place] [address] [id number] [place] [id number] Jun, [facility] [address] [id number] [address] [place] [address], [place] [address] Jun, [facility] [address] [id number] [address] [place] [address], [place] [address] Jun, [facility] [place] [address] [id number] [place] [id number] Jun, [facility] [place] [address] [id number] [place] [id number] May, [facility] [address] [id number] [address] [place] [address], [place] [address] May, [facility] [address] [id number] [address] [place] [address], [place] [address] Apr, [facility] [place] [address] [id number] [place] [id number] Mar, [facility] [address] [id number] [address] [place] [address], [place] [address] Mar, [facility] [address] [id number] [address] [place] [address], [place] [address] Mar, [facility] [address] [id number] [place] [address] Mar, [facility] [place] [address] [id number] [place] [id number] Mar, [facility] [place] [address] [id number] [place] [id number] Feb, [facility] [place] [facility] [address] [facility] [id number] [address] [place] [address] Feb, [facility] [place] [address] [id number] [place] [id number] Feb, [facility] [place] [facility] [address] [id number] [address] [place] [address] Feb, [facility] [place] [address] [id number] [place] [id number] Feb, [facility] [place] [facility] [address] [facility] [id number] [address] [place] [address] Feb, [facility] [place] [address] [id number] [place] [id number] Jan, [facility] [place] [address] [id number] [place] [id number] Dec, [facility] [place] [address] [id number] [place] [id number] Nov, [facility] [place] [address] [id number] [place] [id number] Oct, [facility] [place] [address] [id number] [place] [id number] Oct, [facility] [place] [address] [id number] [place] [id number] Oct, [facility] [place] [address] [id number] [place] [id number] Oct, [facility] [address] [facility] [id number] [address] [place] [address] September, [facility] [place] [address] [id number] [place] [id number] September, [facility] [address] [id number] [address] [place] [address], [place] [address] Aug, [facility] [place] [address] [id number] [place] [id number] Aug, [facility] [place] [address] [id number] [place] [id number] Jun, [facility] [place] [address] [id number] [place] [id number] Jun, [facility] [place] [address] [id number] [place] [id number] Feb, [facility] [address] [id number] [address] [place] [address] Feb, [facility] [place] [address] [id number] [place] [id number] Feb, [facility] [place] [address] [id number] [place] [id number] Dec, [facility] [address] [facility] [id number] [address] [place] [address] Dec, [facility] [place] [address] [id number] [place] [id number] Dec, [facility] [place] [address] [id number] [place] [id number] Aug, [facility] [place] [address] [id number] [place] [id number] May, [facility] [place] [address] [id number] [place] [id number] May, [facility] [facility] [address] [facility] [id number] [address] [place] [address] Apr, [facility] [address] [facility] [id number] [address] [place] [address] September, [facility] [address] [facility] [id number] [address] [place] [address] Apr, [facility] [address] [facility] [id number] [address] [place] [address] Apr, [facility] [address] [facility] [id number] [address] [place] [address] 10 Apr, 2010 IMMUNIZATIONS No Known Immunizations SOCIAL HISTORY Never Assessed REASON FOR VISIT [facility] [place]AN OF CARE VITAL SIGNS MEDICATIONS Medication Instructions Dosage Frequency Start Date End Date Duration S tatus Accolate 20 mg 1 tablet by Oral rou te 2 times per day 1hr before or 2hr after meals May, Active pravastatin 20 mg 1 time per day Jun, Active Macrobid macrocrystals 100 mg SI cap(s) oral ly 2 times a day for 7 day(s) May, Active ProAir HFA 90 mcg/actuation inhale 2 puf fs by Inhalation route every 4 hours as needed PRN shortness of breath/cough Jul, Active Symbicort 160 mcg-4.5 mcg/inh 2 puffs by Inhalation ro [place] 2 times per day Aug, Active Naprosyn 500 mg 1 tablet by Oral route 2 times per day 2 May, Active Clindamycin HCl 300 mg 1 capsule by Oral route every 1 2 hours for 10 day(s) Dec, Active Levaquin 500 mg 1 tablet by Oral route every 24 hours for 10 days Oct, Active Carafate 1 gram 1 tablet by Oral rou [place] 4 times per day before meals and at hs dissolve in 8 oz of water Jun, Active Protonix 40 mg take 1 tablet by Oral route 1 time per day Apr, Active Aldactone 25 mg take 1 tablet (25 mg) by oral route once d aily Aug, Active Albuterol Sulfate 2.5 mg /3 mL (0.083 %) 1 Each by Inhalation route every 4 hours for cough and wheeze PRN for wheezing or cough Jan, Active Tamiflu 75 mg 1 capsule by Oral ro [place] 2 times per day for 5 day(s) Prophylaxis Dosing Jun, Active RESULTS No Results PROCEDURES No Known [...]
--- OUTSIDE RECORDS SUMMARY | 2019-07-19 23:17 | XMS REPORT ---
Author Author Zoie Abebe Doctor Organization [facility] Address Unknown Phone Unavailable Care Team Providers Care First Dyer Name Role Phone Migration, Doctor Unavailable Unavailable PROBLEMS Type Condition ICD9-CM Code EHS20-TT Code Onset Dates Condition S tatus SNOMED Code Problem Other and unspecified hyperlipidemia E78.5 Active 16532700 Problem Type 2 diabetes mellitus wit h other specified complication, without long-term current use of insulin E11.69 Active 86025225 Problem Chronic airway obstruction, not elsewhere classified J44.9 Active 86415945 Problem CAD (coronary artery disease) I25.10 Active 94286425 ALLERGIES No Information ENCOUNTERS Encounter Location Date Diagnosis [id number], [place] [id number] Aug, [place] [id number] [place] [address], [place] [id number] Aug, Bilateral impacted cerumen H61.23 ; CAD (coronary artery disease) I25.10 and Other and unspecified hyperlipidemia E78.5 [place] [id number] [place] [id number] Jun, Encounter for Medicare annual wellness e xam Z00.00 ; Type 2 diabetes mellitus with other specified complication, without long-term current use of insulin E11.69 ; Chronic airway obstruction, not elsewhere classified J44.9 ; CAD (coronary artery disease) I25.10 ; Other and unspecified hyperlipidemia E78.5 and Breast cancer screening Z12.31 [facility] [address] [id number] [place] [id number] Jun, DM w/o complication type II E11.9 ; Rack Puller 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, not elsewhere classified J44.9 ; CAD (coronary artery disease) I25.10 and Vertigo R42 [facility] [id number] [place] [id number] Feb, Encounter for immunization Z23 [facility] [place] [address] [id number] [place] [id number] Jan, DM w/o complication type II E11.9 and Ch ronic airway obstruction, not elsewhere classified J44.9 [facility] [place] [address] [id number] [place] [id number] Dec, CAD (coronary artery disease) I25.10 [facility] [place] [address] [id number] [place] [id number] Oct, DM w/o complication type II E11.9 ; Rack Puller 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, not elsewhere classified J44.9 and CAD (coronary artery disease) I25.10 [facility] [place] [address] [id number] [place] [id number] Jul, DM w/o complication type II E11.9 ; Rack Puller 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, not elsewhere classified J44.9 and Infective urethritis N34.2 [facility] [place] [address] [id number] [place] [id number] Jun, Syncope and collapse R55 [facility] [place] [address] [id number] [place] [id number] Jun, [facility] [place] [address] [id number] [place] [id number] May, Bronchitis J40 [facility] [place] [address] [id number] [place] [id number] May, [facility] [place] [address] [id number] [place] [id number] May, [facility] [place] [address] [id number] [place] [id number] Apr, DM w/o complication type II E11.9 [facility] [place] [address] [id number] [place] [id number] Mar, DM w/o complication type II E11.9 ; Rack Puller 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, not elsewhere classified J44.9 ; Dysuria R30.0 ; Tinea pedis of right foot B35.3 and Encounter for immunization Z23 [facility] [place] [address] [id number] [place] [id number] Feb, Medicare welcome exam Z00.00 [facility] [place] [address] [id number] [place] [id number] Jan, Chronic airway obstruction, not elsewher e classified J44.9 [facility] [address] [id number] [place] [id number] Dec, [facility] [address] [id number] [place] [id number] Dec, DM w/o complication type II E11.9 ; Rack Puller 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, not elsewhere classified J44.9 and Acute cystitis with hematuria N30.01 [facility] [address] [id number] [place] [id number] Oct, Encounter for screening for malignant ne oplasm of colon Z12.11 [facility] [address] [id number] [place] [id number] Oct, Medicare welcome exam Z00.00 [facility] [address] [id number] [place] [id number] September, Medicare welcome exam Z00.00 and Encount er for immunization Z23 [facility] [address] [id number] [place] [id number] September, Bronchitis J40 [facility] [place] [address] [id number] [place] [id number] September, Bronchitis J40 [facility] [address] [id number] [place] [id number] September, Other and unspecified hyperlipidemia E78 .5 [facility] [address] [id number] [place] [id number] Aug, DM w/o complication type II E11.9 ; Rack Puller 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, not elsewhere classified J44.9 and Other and unspecified hyperlipidemia E78.5 [facility] [address] [id number] [place] [id number] May, DM w/o complication type II E11.9 and Ch ronic airway obstruction, not elsewhere classified J44.9 [facility] [place] [address] [id number] [place] [id number] Apr, Acute cystitis with hematuria N30.01 [facility] [place] [address] [id number] [place] [id number] Feb, DM w/o complication type II E11.9 [facility] [place] [address] [id number] [place] [id number] Feb, Chronic airway obstruction, not elsewher e classified J44.9 ; DM w/o complication type II E11.9 and Encounter for immunization Z23 [facility] [place] [address] [id number] [place] [id number] Dec, [facility] [place] [address] [id number] [place] [id number] Nov, Chronic airway obstruction, not elsewher e classified J44.9 [facility] [place] [address] [id number] [place] [id number] Oct, DM w/o complication type II E11.9 [facility] [address] [facility] [id number] 100KS [place] [address] Oct, [facility] [place] [address] [id number] [place] [id number] Aug, Chronic airway obstruction, not elsewher e classified J44.9 and DM w/o complication type II E11.9 [facility] [place] [address] [id number] [place] [id number] Aug, Chronic airway obstruction, not elsewher e classified J44.9 [facility] [place] [address] [id number] [place] [id number] Aug, DM w/o complication type II E11.9 and Ch ronic airway obstruction, not elsewhere classified J44.9 [facility] [place] [address] [id number] [place] [id number] Jul, [facility] [place] [address] [id number] [place] [id number] Jul, DM w/o complication type II E11.9 [facility] [place] [address] [id number] [place] [id number] Jun, [facility] [place] [address] [id number] [place] [id number] Jun, [facility] [place] [address] [facility] [id number] [place] [id number] Jun, Chronic airway obstruction, not elsewher e classified J44.9 ; DM w/o complication type II E11.9 and Other and unspecified hyperlipidemia E78.5 [facility] [place] [address] [facility] [id number] [place] [id number] Jun, CAD (coronary artery disease) I25.10 and Dizziness R42 [facility] [place] [address] [facility] [id number] [place] [id number] Jun, Bronchitis J40 [facility] [place] [address] [facility] [id number] [place] [id number] May, Hematoma T14.8 [facility] [place] [address] [facility] [id number] [place] [id number] May, [facility] [place] [address] [facility] [id number] [place] [id number] May, Bronchitis J40 [facility] [place] [address] [facility] [id number] [place] [id number] Apr, Bronchitis J40 [facility] [address] [facility] [id number] [address] [place] [address] Apr, [facility] [place] [address] [facility] [id number] [place] [id number] Mar, [facility] [address] [id number] [id number] Mar, [facility] [place] [address] [facility] [id number] [place] [id number] Mar, [facility] [address] [id number] [id number] Mar, [facility] [place] [address] [facility] [id number] [place] [id number] Mar, SOB (shortness of breath) R06.02 [facility] [place] [address] [facility] [id number] [place] [id number] Feb, Urinary tract infection, site not specif ied N39.0 and Hematuria, unspecified R31.9 [facility] [place] [address] [id number] [place] [id number] Feb, DM w/o complication type II E11.9 ; Enco unter for immunization Z23 and Chronic airway obstruction, not elsewhere classified [facility]44.9 [facility] [address] [facility] [id number] [place] [id number] Jan, [facility] [address] [facility] [id number] [place] [id number] Jan, [facility] [place] [address] [id number] [place] [id number] Dec, [facility] [place] [address] [id number] [place] [id number] Dec, [facility] [place] [address] [id number] [place] [id number] Dec, [facility] [place] [address] [id number] [place] [id number] Dec, [facility] [place] [address] [id number] [place] [id number] Dec, Blood in the stool 578.1 [facility] [place] [address] [id number] [place] [id number] Nov, [facility] [place] [address] [id number] [place] [id number] Nov, Colon cancer screening V76.51 [facility] [place] [address] [id number] [place] [id number] Nov, Vertigo 780.4 [facility] [place] [address] [id number] [place] [id number] Nov, Routine gynecological examination V72.31 ; Pap test, as part of routine gynecological examination V76.2 ; Breast cancer screening V76.10 ; Postmenopausal V49.81 and Colon cancer screening V76.51 [facility] [place] [address] [id number] [place] [id number] Nov, [facility] [place] [address] [id number] [place] [id number] Nov, [facility] [address] [facility] [id number] [address] [place] [address] Nov, [facility] [place] [address] [id number] [place] [id number] Oct, Diabetes 250.00 ; COPD (chronic obstruct misha pulmonary disease) 496 and GERD (gastroesophageal reflux disease) 530.81 [facility] [address] [facility] [id number] [address] [place] [address] Oct, [facility] [place] [address] [id number] [place] [id number] Oct, [facility] [place] [address] [id number] [place] [id number] Oct, [facility] [place] [address] [id number] [place] [id number] Oct, Reflux 530.81 [facility] [address] [facility] [id number] [address] [place] [address] Oct, [facility] [place] [address] [id number] [place] [id number] Oct, [facility] [address] [id number] [place] [id number] Oct, [facility] [address] [id number] [place] [id number] Oct, Dysuria 788.1 [facility] [place] [address] [facility] [id number] [place] [id number] Oct, Dysuria 788.1 [facility] [address] [facility] [id number] [address] [place] [address] September, [facility] [address] [id number] [place] [id number] September, Diabetes 250.00 and COPD (chronic obstru ctive pulmonary disease) 496 [facility] [place] [address] [id number] [place] [id number] September, [facility] [place] [address] [facility] [id number] [place] [id number] September, [facility] [address] [facility] [address] [id number][place] [id number] September, [facility] [place] [address] [facility] [id number] [place] [id number] Aug, Osteoarthritis 715.90 ; Diabetes 250.00 and COPD (chronic obstructive pulmonary disease) 496 [facility] [place] [address] [facility] [id number] [place] [id number] Aug, Pure hypercholesterolemia 272.0 ; Essent ial hypertension, benign 401.1 and Loss of weight 783.21 [facility] [address] [facility] [id number] [address] [place] [address] Aug, [facility] [address] [facility] [id number] [address] [place] [address] Aug, [facility] [place] [address] [facility] [id number] [place] [id number] Jul, [facility] [address] [facility] [id number] [address] [place] [address] Jul, [facility] [address] [facility] [id number] [address] [place] [address] Jun, [facility] [address] [facility] [id number] [address] [place] [address] Jun, [facility] [place] [address] [facility] [id number] [place] [id number] Jun, [facility] [address] [facility] [id number] [address] [place] [address] May, [facility] [place] [address] [id number] [place] [id number] May, [facility] [place] [address] [facility] [id number] [place] [id number] Apr, [facility] [address] [facility] [id number] [address] [place] [phone] Apr, [facility] [place] [address] [facility] [id number] [place] [id number] Apr, [facility] [address] [id number] [address] [place] [address], [place] [address] Apr, [facility] [place] [address] [id number] [place] [id number] Apr, [facility] [address] [id number] [facility] [place] [address] Apr, [facility] [place] [address] [id number] [place] [id number] Feb, [facility] [address] [id number] [address] [place] [address], [place] [address] Feb, [facility] [place] [address] [id number] [place] [id number] Feb, [facility] [address] [id number] [address] [place] [address], [place] [address] Feb, [facility] [address] [id number] [address] [place] [address], [place] [address] Jan, [facility] [address] [id number] [place] [id number] Jan, [facility] [address] [id number] [address] [place] [address], [place] [address] Jan, [facility] [address] [id number] [place] [id number] Jan, [facility] [address] [id number] [address] [place] [address], [place] [address] Jan, [facility] [address] [id number] [address] [place] [address], [place] [address] Dec, [facility] [address] [id number] [address] [place] [address], [place] [address] Dec, [facility] [address] [id number] [place] [id number] September, [facility] [address] [id number] [address] [place] [address], [place] [address] September, [facility] [address] [id number] [facility] [place] [address] September, [facility] [address] [id number] [place] [id number] September, [facility] [place] [address] [id number] [place] [id number] September, [facility] [address] [id number] [address] [place] [address], [place] [address] September, [facility] [place] [address] [id number] [place] [id number] Aug, [facility] [address] [id number] [address] [place] [address], [place] [address] Aug, [facility] [address] [id number] [address] [place] [address], [place] [address] Jul, [facility] [place] [address] [id number] [place] [id number] Jul, [facility] [address] [id number] [address] [place] [address], [place] [address] Jul, [facility] [address] [id number] [place] [id number] Jun, [facility] [address] [id number] [address] [place] [address], [place] [address] Jun, [facility] [address] [id number] [address] [place] [address], [place] [address] Jun, [facility] [place] [address] [id number] [place] [id number] Jun, [facility] [address] [id number] [place] [id number] May, [facility] [address] [id number] [address] [place] [address], [place] [address] May, [facility] [address] [id number] [address] [place] [address], [place] [address] Apr, [facility] [address] [id number] [place] [id number] Mar, [facility] [address] [facility] [id number] [address] [place] [address] Mar, [facility] [address] [facility] [id number] [address] [place] [address] Mar, [facility] [address] [facility] [id number] [address] [place] [address] Mar, [facility] [address] [id number] [place] [id number] Mar, [facility] [place] [address] [id number] [place] [id number] Feb, [facility] [address] [facility] [id number] [address] [place] [address] Feb, [facility] [address] [id number] [place] [id number] Feb, [facility] [address] [facility] [id number] [address] [place] [phone] Feb, [facility] [address] [id number] [place] [id number] Feb, [facility] [address] [facility] [id number] [address] [place] [address] Feb, [facility] [place] [address] [id number] [place] [id number] Jan, [facility] [address] [id number] [place] [id number] Dec, [facility] [address] [id number] [place] [id number] Nov, [facility] [address] [id number] [place] [id number] Oct, [facility] [address] [id number] [place] [id number] Oct, [facility] [address] [id number] [place] [id number] Oct, [facility] [address] [id number] [place] [id number] Oct, [facility] [address] [id number] [address] [place] [address], [place] [address] September, [facility] [place] [address] [id number] [place] [id number] September, [facility] [address] [facility] [id number] [address] [place] [address], [place] [address] Aug, [facility] [address] [id number] [place] [id number] Aug, [facility] [address] [id number] [place] [id number] Jun, [facility] [address] [id number] [place] [id number] Jun, [facility] [address] [id number] [place] [id number] Feb, [facility] [address] [facility] [id number] [address] [place] [address], [place] [address] Feb, [facility] [address] [id number] [place] [id number] Feb, [facility] [address] [id number] [place] [id number] Dec, [facility] [address] [facility] [id number] [address] [place] [address], [place] [address] Dec, [facility] [place] [address] [id number] [place] [id number] Dec, [facility] [address] [id number] [place] [id number] Aug, [facility] [address] [id number] [place] [id number] May, [facility] [address] [id number] [place] [id number] May, [facility] [address] [facility] [id number] [address] [place] [address] Apr, [facility] [address] [facility] [id number] [address] [place] [phone] September, [facility] [address] [facility] [id number] [address] [place] [phone] Apr, [facility] [address] [facility] [id number] [address] [place] [id number] Apr, [facility] [address] [facility] [id number] [address] [place] [phone] Apr, IMMUNIZATIONS No Known Immunizations SOCIAL HISTORY Never Assessed REASON FOR VISIT [facility] PLAN OF CARE VITAL SIGNS MEDICATIONS Unknown [...]
--- OUTSIDE RECORDS SUMMARY | 2019-07-19 23:18 | XMS REPORT ---
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 Name Role Phone ELLEN DISLA Unavailable PROBLEMS Type Condition ICD9-CM Code XSD61-JR Code Onset Dates Condition S tatus SNOMED Code Problem Diaphragmatic hernia without mention of obstruction or gangrene 553.3 Active 29381671 Problem Unspecified senile cataract 366.10 Ac tive 93044686 Problem Essential hypertension, benign 401.1 Active 9209491 Problem Loss of weight 783.21 Active 22583 5001 Problem Other and unspecified hyperlipidemia E78.5 Active 86133253 Problem CAD (coronary artery disease) I25.10 Active 23058968 Problem GERD (gastroesophageal reflux disease) 530.81 Active 985908661 Problem Asthma 493.90 Active 984593706 Problem Chronic airway obstruction, not elsewhere classified J44.9 Active 47409351 Problem DM w/o complication type II E11.9 Ac tive 43978242 ALLERGIES Substance Reaction Event Type Date Status Bactrim hives Drug Allergy Oct, Active ENCOUNTERS Encounter Location Date Diagnosis [facility] [id number] [place] [id number] Jan, [facility] [id number] [place] [id number] Dec, CAD (coronary artery disease) I25.10 [facility] [address] [id number] [place] [id number] Oct, DM w/o complication type II E11.9 ; Senior Project Leader/Team Lead 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, not elsewhere classified J44.9 and CAD (coronary artery disease) I25.10 [facility] [address] [facility] [id number] [place] [id number] Jul, DM w/o complication type II E11.9 ; Senior Project Leader/Team Lead 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, not elsewhere classified J44.9 and Infective urethritis N34.2 [facility] [address] [id number] [place] [id number] 05 Jun, 2017 Syncope and collapse R55 [facility] [place] [address] [id number] [place] [id number] 02 Jun, 2017 [facility] [place] [address] [id number] [place] [id number] May, Bronchitis J40 [facility] [place] [address] [id number] [place] [id number] 10 May, 2017 [facility] [place] [address] [id number] [place] [id number] May, [facility] [place] [address] [id number] [place] [id number] Apr, DM w/o complication type II E11.9 [facility] [address] [id number] [place] [id number] Mar, DM w/o complication type II E11.9 ; Senior Project Leader/Team Lead 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, not elsewhere classified J44.9 ; Dysuria R30.0 ; Tinea pedis of right foot B35.3 and Encounter for immunization Z23 [facility] [address] [id number] [place] [id number] 04 Feb, 2017 Medicare spencer exam Z00.00 [facility] [address] [id number] [place] [id number] 07 Jan, 2017 Chronic airway obstruction, not elsewher e classified J44.9 [facility] [address] [id number] [place] [id number] Dec, [facility] [place] [address] [id number] [place] [id number] Dec, DM w/o complication type II E11.9 ; Senior Project Leader/Team Lead 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, not elsewhere classified J44.9 and Acute cystitis with hematuria N30.01 [facility] [place] [address] [id number] [place] [id number] 05 Oct, 2016 Encounter for screening for malignant ne oplasm of colon Z12.11 [facility] [place] [address] [id number] [place] [id number] Oct, Medicare welcome exam Z00.00 [facility] [place] [address] [id number] [place] [id number] September, Medicare welcome exam Z00.00 and Encount er for immunization Z23 [facility] [place] [address] [id number] [place] [id number] September, Bronchitis J40 [facility] [place] [address] [id number] [place] [id number] September, Bronchitis J40 [facility] [place] [address] [id number] [place] [id number] September, Other and unspecified hyperlipidemia E78 .5 [facility] [place] [address] [id number] [place] [id number] Aug, DM w/o complication type II E11.9 ; Senior Project Leader/Team Lead 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, not elsewhere classified J44.9 and Other and unspecified hyperlipidemia E78.5 [facility] [place] [address] [id number] [place] [id number] May, DM w/o complication type II E11.9 and Ch ronic airway obstruction, not elsewhere classified J44.9 [facility] [place] [address] [id number] [place] [id number] Apr, Acute cystitis with hematuria N30.01 [facility] [place] [address] [id number] [place] [id number] Feb, DM w/o complication type II E11.9 [facility] [place] [address] [id number] [place] [id number] Feb, Chronic airway obstruction, not elsewher e classified J44.9 ; DM w/o complication type II E11.9 and Encounter for immunization Z23 [facility] [place] [address] [id number] [place] [id number] Dec, [facility] [place] [address] [id number] [place] [id number] Nov, Chronic airway obstruction, not elsewher e classified J44.9 [facility] [place] [address] [id number] [place] [id number] Oct, DM w/o complication type II E11.9 [facility] [address] [facility] [id number] [address] [place] [address] Oct, [facility] [place] [address] [id number] [place] [id number] Aug, Chronic airway obstruction, not elsewher e classified J44.9 and DM w/o complication type II E11.9 [facility] [place] [address] [id number] [place] [id number] Aug, Chronic airway obstruction, not elsewher e classified J44.9 [facility] [place] [address] [id number] [place] [id number] Aug, DM w/o complication type II E11.9 and Ch ronic airway obstruction, not elsewhere classified J44.9 [facility] [place] [address] [id number] [place] [id number] Jul, [facility] [place] [address] [id number] [place] [id number] Jul, DM w/o complication type II E11.9 [facility] [place] [address] [id number] [place] [id number] Jun, [facility] [place] [address] [id number] [place] [id number] Jun, [facility] [place] [address] [id number] [place] [id number] Jun, Chronic airway obstruction, not elsewher e classified J44.9 ; DM w/o complication type II E11.9 and Other and unspecified hyperlipidemia E78.5 [facility] [place] [address] [id number] [place] [id number] 11 Jun, 2015 CAD (coronary artery disease) I25.10 and Dizziness R42 [facility] [place] [address] [id number] [place] [id number] 10 Jun, 2015 Bronchitis J40 [facility] [place] [address] [id number] [place] [id number] May, Hematoma T14.8 [facility] [place] [address] [id number] [place] [id number] May, [facility] [place] [address] [id number] [place] [id number] May, Bronchitis J40 [facility] [place] [address] [id number] [place] [id number] Apr, Bronchitis J40 [facility] [address] [facility] [id number] [address] [place] [address] Apr, [facility] [place] [address] [id number] [place] [id number] Mar, [facility] [address] [id number] [place] [id number] Mar, [facility] [place] [address] [facility] [id number] [place] [id number] Mar, [facility] [address] [id number] [facility] [place] [place] [id number] Mar, [facility] [place] [address] [facility] [id number] [place] [id number] Mar, SOB (shortness of breath) R06.02 [facility] [place] [address] [facility] [id number] [place] [id number] Feb, Urinary tract infection, site not specif ied N39.0 and Hematuria, unspecified R31.9 [facility] [place] [address] [facility] [id number] [place] [id number] Feb, DM w/o complication type II E11.9 ; Enco unter for immunization Z23 and Chronic airway obstruction, not elsewhere classified J44.9 [facility] [place] [address] [id number] [facility] [place] [id number] Jan, [facility] [place] [address] [facility] [id number] [place] [id number] Jan, [facility] [place] [address] [facility] [id number] [place] [id number] Dec, [facility] [place] [address] [facility] [id number] [place] [id number] Dec, [facility] [place] [address] [id number] [place] [id number] Dec, [facility] [place] [address] [id number] [place] [id number] Dec, [facility] [place] [address] [id number] [place] [id number] Dec, Blood in the stool 578.1 [facility] [place] [address] [id number] [place] [id number] Nov, [facility] [place] [address] [id number] [place] [id number] Nov, Colon cancer screening V76.51 [facility] [place] [address] [id number] [place] [id number] Nov, Vertigo 780.4 [facility] [place] [address] [id number] [place] [id number] Nov, Routine gynecological examination V72.31 ; Pap test, as part of routine gynecological examination V76.2 ; Breast cancer screening V76.10 ; Postmenopausal V49.81 and Colon cancer screening V76.51 [facility] [address] [id number] [place] [id number] Nov, [facility] [place] [address] [id number] [place] [id number] Nov, [facility] [place] [address] [id number] [address] [place] [address] Nov, [facility] [place] [address] [id number] [place] [id number] Oct, Diabetes 250.00 ; COPD (chronic obstruct misha pulmonary disease) 496 and GERD (gastroesophageal reflux disease) 530.81 [facility] [place] [address] [facility] [id number] [address] [place] [address] Oct, [facility] [place] [address] [id number] [place] [id number] Oct, [facility] [place] [address] [id number] [place] [id number] Oct, [facility] [place] [address] [id number] [place] [id number] Oct, Reflux 530.81 [facility] [address] [facility] [id number] [address] [place] [address] Oct, [facility] [place] [address] [facility] [id number] [place] [id number] Oct, [facility] [place] [address] [facility] [id number] [place] [id number] Oct, [facility] [place] [address] [facility] [id number] [place] [id number] Oct, Dysuria 788.1 [facility] [place] [address] [facility] [id number] [place] [id number] Oct, Dysuria 788.1 [facility] [place] [address] [id number] [address] [place] [address] September, [facility] [address] [id number] [place] [id number] September, Diabetes 250.00 and COPD (chronic obstru ctive pulmonary disease) 496 [facility] [address] [facility] [id number] [place] [id number] September, [facility] [place] [address] [facility] [id number] [place] [id number] September, [facility] [address] [facility] [address] [id number] [id number] September, [facility] [place] [address] [facility] [id number] [place] [id number] Aug, Osteoarthritis 715.90 ; Diabetes 250.00 and COPD (chronic obstructive pulmonary disease) 496 [facility] [address] [facility] [id number] [place] [id number] Aug, Pure hypercholesterolemia 272.0 ; Essent ial hypertension, benign 401.1 and Loss of weight 783.21 [facility] [place] [address] [id number] [address] [place] [address] Aug, [facility] [place] [address] [address] Aug, [facility] [place] [address] [id number] [place] [id number] Jul, [facility] [address] [id number] [address] [place] [address], [place] [address] Jul, [facility] [address] [id number] [address] [place] [address], [place] [address] Jun, [facility] [address] [id number] [address] [place] [address], [place] [address] Jun, [facility] [place] [address] [id number] [place] [id number] Jun, [facility] [address] [id number] [address] [place] [address], [place] [address] May, [facility] [place] [address] [id number] [place] [id number] May, [facility] [place] [address] [id number] [place] [id number] Apr, [facility] [address] [id number] [address] [place] [address], [place] [address] Apr, [facility] [place] [address] [id number] [place] [id number] Apr, [facility] [address] [facility] [id number] [address] [place] [address], [place] [address] Apr, [facility] [place] [address] [id number] [place] [id number] Apr, [facility] [address] [id number] [address] [place] [address], [place] [address] Apr, [facility] [place] [address] [id number] [place] [id number] Feb, [facility] [address] [id number] [address] [place] [address], [place] [address] Feb, [facility] [place] [address] [id number] [place] [id number] Feb, [facility] [address] [id number] [facility] [place] [address] Feb, [facility] [address] [id number] [facility] [place] [address] Jan, [facility] [place] [address] [id number] [place] [id number] Jan, [facility] [address] [id number] [facility] [place] [address] Jan, [facility] [place] [address] [id number] [place] [id number] Jan, [facility] [address] [id number] [address] [place] [address], [place] [address] Jan, [facility] [address] [id number] [address] [place] [address], [place] [address] Dec, [facility] [address] [id number] [address] [place] [address], [place] [address] Dec, [facility] [place] [address] [id number] [place] [id number] September, [facility] [address] [id number] [address] [place] [address], [place] [address] September, [facility] [address] [id number] [address] [place] [address], [place] [address] September, [facility] [place] [address] [id number] [place] [id number] September, [facility] [place] [address] [id number] [place] [id number] September, [facility] [address] [id number] [address] [place] [address], [place] [address] September, [facility] [place] [address] [id number] [place] [id number] Aug, [facility] [address] [id number] [address] [place] [address], [place] [address] Aug, [facility] [address] [id number] [address] [place] [address], [place] [address] Jul, [facility] [place] [address] [id number] [place] [id number] Jul, [facility] [address] [id number] [address] [place] [address], [place] [address] Jul, [facility] [place] [address] [id number] [place] [id number] Jun, [facility] [address] [id number] [address] [place] [address], [place] [address] Jun, [facility] [address] [id number] [address] [place] [address], [place] [address] Jun, [facility] [place] [address] [id number] [place] [id number] Jun, [facility] [place] [address] [id number] [place] [id number] May, [facility] [place] [facility] [address] [id number] [address] [place] [address], [place] [address] May, [facility] [address] [id number] [address] [place] [address], [place] [address] Apr, [facility] [place] [address] [id number] [place] [id number] Mar, [facility] [address] [id number] [address] [place] [address] Mar, [facility] [address] [id number] [address] [place] [address] Mar, [facility] [address] [id number] [address] [place] [address], [place] [address] Mar, [facility] [place] [address] [id number] [place] [id number] Mar, [facility] [place] [address] [id number] [place] [id number] Feb, [facility] [address] [id number] [address] [place] [address], [place] [address] Feb, [facility] [place] [address] [id number] [place] [id number] Feb, [facility] [place] [facility] [address] [id number] [address] [place] [address] Feb, [facility] [place] [address] [id number] [place] [id number] Feb, [facility] [place] [address] [facility] [id number] [address] [place] [address] Feb, [facility] [place] [address] [id number] [place] [id number] Jan, [facility] [place] [address] [id number] [place] [id number] Dec, [facility] [place] [address] [id number] [place] [id number] Nov, [facility] [place] [address] [id number] [place] [id number] Oct, [facility] [place] [address] [id number] [place] [id number] Oct, [facility] [place] [address] [id number] [place] [id number] Oct, [facility] [place] [address] [id number] [place] [id number] Oct, [facility] [address] [facility] [id number] [address] [place] [address] September, [facility] [place] [address] [id number] [place] [id number] September, [facility] [address] [facility] [id number] [address] [place] [address] Aug, [facility] [place] [address] [id number] [place] [id number] Aug, [facility] [place] [address] [id number] [place] [id number] Jun, [facility] [place] [address] [id number] [place] [id number] Jun, [facility] [place] [address] [id number] [place] [id number] Feb, [facility] [place] [address] [id number] [address] [place] [address] Feb, [facility] [place] [address] [id number] [place] [id number] Feb, [facility] [place] [address] [id number] [place] [id number] Dec, [facility] [place] [address] [id number] [address] [place] [address] Dec, [facility] [place] [address] [id number] [place] [id number] Dec, [facility] [place] [address] [id number] [place] [id number] Aug, [facility] [place] [address] [id number] [place] [id number] May, [facility] [place] [address] [id number] [place] [id number] May, [facility] [place] [address] [facility] [id number] [address] [place] [address] Apr, [facility] [place] [address] [facility] [id number] [address] [place] [address] September, [facility] [place] [address] [facility] [id number] [address] [place] [address] Apr, [facility] [place] [address] [facility] [id number] [address] [place] [address] Apr, [facility] [place] [address] [facility] [id number] [address] [place] [address] Apr, IMMUNIZATIONS No Known Immunizations SOCIAL HISTORY Never Assessed REASON FOR VISIT Diabetes visit Edouard [facility] PLAN OF CARE Activity Details Follow Up 3 Months Reason:dm VITAL SIGNS Height 66 in 2017-10-22 Weight 128.8 lbs 2017-10-22 Temperature 98 degrees Fahrenheit 2017-10-22 Heart Rate 88 bpm 2017-10-22 Respiratory Rate 16 2017-10-22 BMI 20.79 kg/m2 2017-10-22 Blood pressure systolic 120 mmHg 2017-10-22 Blood pressure diastolic 68 mmHg 2017-10-22 MEDICATIONS Medication Instructions Dosage Frequency Start Date End Date Duration S bhaskar Omeprazole 40 mg Orally Once a day 1 capsule 24h Oct, Active Pravastatin Sodium 20 mg Orally Once a day 1 tablet 24h Active OneTouch Ultra Test - CHECK BLOOD SUGAR TWICE DAILY DIRECTED. Active Albuterol Sulfate (2.5 MG/3ML) 0.083% Inhalation Three times a day 3 m l 8h Active Benzonatate 200 mg Orally Three times a day 1 capsule 8h May, 18 Active Meclizine HCl 25 MG Orally 3 times a day 1 tablet as needed for d izziness 8h Nov, Active Aspirin Adult Low Dose 81 MG Orally Once a day 1 tablet 24h Active Accolate 20 mg Orally Twice a day 1 tablet 12h 0 Active Symbicort 160-4.5 MCG/ACT INHALE 2 PUFFS BY MOUTH TWICE DAILY... . Active Metformin HCl 500 mg Orally twice a day 2 .5 tabs in AM and 1 1/ 2 tablets in pm 12h Active Ventolin HFA 108 (90 Base) MCG/ACT INHALE 2 PUFF S EVERY 4 HOURS NEEDED... Active Promethazine-Codeine 6.25-10 MG/5ML Orally 3 times a day 5 m l as needed for severe cough 8h May, Not-Taking Spiriva HandiHaler 18 MCG INHALE THE CON TENTS OF ONE (1) CAPSULE ONCE DAILY... Active OneTouch Ultra Test Test Strips as directed Oct, Active RESULTS Name Result Date Reference Range A1C (IN HOUSE) 2017-10-22 A1C IN HOUSE 6.2 4.3 - 5.6 % Previous A1c 6.4 Lot [id number] Exp date 07/2019 PROCEDURES Procedure Date Ordered Result Body Site [facility] VISIT ESTABLISHED PATIENT October 22, 2017 GLYCATED HEMOGLOBIN TEST October 22, 2017 INSTRUCTIONS MEDICATIONS ADMINISTERED No Known Medications MEDICAL [...]
--- OUTSIDE RECORDS SUMMARY | 2019-07-19 23:18 | XMS REPORT ---
Author Author Zoie DISLA Organization [facility] Address [address] [place] [address] Care Team Providers Care Electrophysiology Scientist Name Role Phone ELLEN DISLA Unavailable PROBLEMS Type Condition ICD9-CM Code LRD50-QP Code Onset Dates Condition S tatus SNOMED Code Problem Other and unspecified hyperlipidemia E78.5 Active 19768278 Problem CAD (coronary artery disease) I25.10 Active 58171296 Problem Chronic airway obstruction, not elsewhere classified J44.9 Active 78534327 Problem DM w/o complication type II E11.9 Ac tive 57046296 ALLERGIES Substance Reaction Event Type Date Status Bactrim hives Drug Allergy Jan, Active ENCOUNTERS Encounter Location Date Diagnosis [place] [id number] [place] [address], [place] [id number] Jan, DM w/o complication type II E11.9 and Ch ronic airway obstruction, not elsewhere classified J44.9 [facility] [id number] [place] [address], [place] [id number] Dec, CAD (coronary artery disease) I25.10 [place] [id number] [place] [address], [place] [id number] Oct, DM w/o complication type II E11.9 ; Lead Teller 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, not elsewhere classified J44.9 and CAD (coronary artery disease) I25.10 [facility] [address] [facility] [id number] [place] [id number] Jul, DM w/o complication type II E11.9 ; Lead Teller 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, not elsewhere classified J44.9 and Infective urethritis N34.2 [facility] [address] [facility] [id number] [place] [id number] Jun, Syncope and collapse R55 [place] [id number] [place] [address], [place] [id number] Jun, [facility] [address] [id number] [place] [id number] May, Bronchitis J40 [facility] [address] [id number] [place] [id number] May, [facility] [address] [id number] [place] [id number] May, [facility] [address] [id number] [place] [id number] Apr, DM w/o complication type II E11.9 [facility] [place] [address] [id number] [place] [id number] Mar, DM w/o complication type II E11.9 ; Lead Teller 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, not elsewhere classified J44.9 ; Dysuria R30.0 ; Tinea pedis of right foot B35.3 and Encounter for immunization Z23 [facility] [place] [address] [id number] [place] [id number] Feb, Medicare welcome exam Z00.00 [facility] [place] [address] [id number] [place] [id number] Jan, Chronic airway obstruction, not elsewher e classified J44.9 [facility] [place] [address] [id number] [place] [id number] Dec, [facility] [place] [address] [id number] [place] [id number] Dec, DM w/o complication type II E11.9 ; Lead Teller 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, not elsewhere classified J44.9 and Acute cystitis with hematuria N30.01 [facility] [place] [address] [id number] [place] [id number] Oct, Encounter for screening for malignant ne oplasm of colon Z12.11 [facility] [place] [address] [id number] [place] [id number] 02 Oct, 2016 Medicare welcome exam Z00.00 [facility] [place] [address] [id number] [place] [id number] September, Medicare welcome exam Z00.00 and Encount er for immunization Z23 [facility] [place] [address] [id number] [place] [id number] September, Bronchitis J40 [facility] [place] [address] [id number] [place] [id number] September, Bronchitis J40 [facility] [place] [address] [id number] [place] [id number] September, Other and unspecified hyperlipidemia E78 .5 [facility] [place] [address] [id number] [place] [id number] Aug, DM w/o complication type II E11.9 ; Lead Teller 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, not elsewhere classified J44.9 and Other and unspecified hyperlipidemia E78.5 [facility] [place] [address] [id number] [place] [id number] May, DM w/o complication type II E11.9 and Ch ronic airway obstruction, not elsewhere classified J44.9 [facility] [place] [address] [id number] [place] [id number] Apr, Acute cystitis with hematuria N30.01 [facility] [place] [address] [id number] [place] [id number] Feb, DM w/o complication type II E11.9 [facility] [place] [address] [id number] [place] [id number] Feb, Chronic airway obstruction, not elsewher e classified J44.9 ; DM w/o complication type II E11.9 and Encounter for immunization Z23 [facility] [place] [address] [id number] [place] [id number] Dec, [facility] [place] [address] [id number] [place] [id number] Nov, Chronic airway obstruction, not elsewher e classified J44.9 [facility] [place] [address] [id number] [place] [id number] Oct, DM w/o complication type II E11.9 [facility] [address] [facility] [id number] [address] [place] [address] Oct, [facility] [place] [address] [facility] [id number] [place] [id number] Aug, Chronic airway obstruction, not elsewher e classified J44.9 and DM w/o complication type II E11.9 [facility] [place] [address] [id number] [place] [id number] Aug, Chronic airway obstruction, not elsewher e classified J44.9 [facility] [place] [address] [id number] [place] [id number] Aug, DM w/o complication type II E11.9 and Ch ronic airway obstruction, not elsewhere classified J44.9 [facility] [place] [address] [id number] [place] [id number] Jul, [facility] [place] [address] [id number] [place] [id number] Jul, DM w/o complication type II E11.9 [facility] [place] [address] [id number] [place] [id number] Jun, [facility] [place] [address] [id number] [place] [id number] Jun, [facility] [address] [id number] [place] [id number] Jun, Chronic airway obstruction, not elsewher e classified J44.9 ; DM w/o complication type II E11.9 and Other and unspecified hyperlipidemia E78.5 [facility] [place] [address] [id number] [place] [id number] 11 Jun, 2015 CAD (coronary artery disease) I25.10 and Dizziness R42 [facility] [place] [address] [id number] [place] [id number] 10 Jun, 2015 Bronchitis J40 [facility] [place] [address] [id number] [place] [id number] May, Hematoma T14.8 [facility] [place] [address] [id number] [place] [id number] May, [facility] [place] [address] [id number] [place] [id number] May, Bronchitis J40 [facility] [place] [address] [id number] [place] [id number] Apr, Bronchitis J40 [facility] [address] [facility] [id number] [address] [place] [address] Apr, [facility] [address] [id number] [place] [id number] Mar, [facility] [address] [id number] [id number] Mar, [facility] [address] [id number] [place] [id number] Mar, [facility] [address] [address] [id number] [id number] Mar, [facility] [address] [facility] [id number] [place] [id number] Mar, SOB (shortness of breath) R06.02 [facility] [place] [address] [facility] [id number] [place] [id number] Feb, Urinary tract infection, site not specif ied N39.0 and Hematuria, unspecified R31.9 [facility] [place] [address] [id number] [place] [id number] Feb, DM w/o complication type II E11.9 ; Enco unter for immunization Z23 and Chronic airway obstruction, not elsewhere classified J44.9 [facility] [address] [id number] [id number] Jan, [facility] [id number] WAY[place] [id number] Jan, [facility] [place] [address] [id number] [place] [id number] Dec, [facility] [place] [address] [id number] [place] [id number] Dec, [facility] [place] [address] [id number] [place] [id number] Dec, [facility] [place] [address] [id number] [place] [id number] Dec, [facility] [place] [address] [id number] [place] [id number] Dec, Blood in the stool 578.1 [facility] [place] [address] [id number] [place] [id number] Nov, [facility] [place] [address] [id number] [place] [id number] Nov, Colon cancer screening V76.51 [facility] [place] [address] [id number] [place] [id number] Nov, Vertigo 780.4 [facility] [place] [address] [id number] [place] [id number] Nov, Routine gynecological examination V72.31 ; Pap test, as part of routine gynecological examination V76.2 ; Breast cancer screening V76.10 ; Postmenopausal V49.81 and Colon cancer screening V76.51 [facility] [address] [id number] [place] [id number] Nov, [facility] [place] [address] [facility] [id number] [place] [id number] Nov, [facility] [address] [id number] [address] [place] [address] Nov, [facility] [address] [id number] [place] [id number] Oct, Diabetes 250.00 ; COPD (chronic obstruct misha pulmonary disease) 496 and GERD (gastroesophageal reflux disease) 530.81 [facility] [id number] [address] [place] [address] Oct, [facility] [address] [facility] [id number] [place] [id number] Oct, [facility] [place] [address] [id number] [place] [id number] Oct, [facility] [place] [address] [facility] [id number] [place] [id number] Oct, Reflux 530.81 [facility] [address] [id number] [address] [place] [address] Oct, [facility] [address] [facility] [id number] [place] [id number] Oct, [facility] [place] [address] [facility] [id number] [place] [id number] Oct, [facility] [place] [address] [facility] [id number] [place] [id number] Oct, Dysuria 788.1 [facility] [place] [address] [facility] [id number] [place] [id number] Oct, Dysuria 788.1 [facility] [address] [facility] [id number] [address] [place] [address] September, [facility] [place] [address] [facility] [id number] [place] [id number] September, Diabetes 250.00 and COPD (chronic obstru ctive pulmonary disease) 496 [facility] [place] [address] [facility] [id number] [place] [id number] September, [facility] [place] [address] [facility] [id number] [place] [id number] September, [facility] [address] [id number] [id number] September, [facility] [place] [address] [facility] [id number] [place] [id number] Aug, Osteoarthritis 715.90 ; Diabetes 250.00 and COPD (chronic obstructive pulmonary disease) 496 [facility] [place] [address] [facility] [id number] [place] [id number] Aug, Pure hypercholesterolemia 272.0 ; Essent ial hypertension, benign 401.1 and Loss of weight 783.21 [facility] [address] [facility] [id number] [address] [place] [address] Aug, [facility] [address] [facility] [id number] [address] [place] [address] Aug, [facility] [place] [address] [facility] [id number] [place] [id number] Jul, [facility] [address] [facility] [id number] [address] [place] [address] Jul, [facility] [address] [id number] [address] [place] [address], [place] [address] Jun, [facility] [address] [id number] [address] [place] [address], [place] [address] Jun, [facility] [address] [id number] [place] [id number] Jun, [facility] [address] [id number] [address] [place] [address], [place] [address] May, [facility] [address] [id number] [place] [id number] May, [facility] [address] [id number] [place] [id number] Apr, [facility] [address] [id number] [address] [place] [address], [place] [address] Apr, [facility] [address] [id number] [place] [id number] Apr, [facility] [address] [id number] [address] [place] [address], [place] [address] Apr, [facility] [address] [id number] [place] [id number] Apr, [facility] [address] [facility] [id number] [address] [place] [address], [place] [address] Apr, [facility] [address] [id number] [place] [id number] Feb, [facility] [address] [id number] [address] [place] [address], [place] [address] Feb, [facility] [address] [id number] [place] [id number] Feb, [facility] [address] [facility] [id number] [address] [place] [address], [place] [address] Feb, [facility] [address] [id number] [address] [place] [address], [place] [address] Jan, [facility] [place] [address] [id number] [place] [id number] Jan, [facility] [address] [id number] [facility] [address] Jan, [facility] [place] [address] [id number] [place] [id number] Jan, [facility] [address] [id number] [address] [place] [address], [place] [address] Jan, [facility] [address] [id number] [address] [place] [address], [place] [address] Dec, [facility] [address] [id number] [address] [place] [address], [place] [address] Dec, [facility] [place] [address] [id number] [place] [id number] September, [facility] [address] [id number] [address] [place] [address], [place] [address] September, [facility] [address] [id number] [address] [place] [address], [place] [address] September, [facility] [address] [id number] [place] [id number] September, [facility] [address] [id number] [place] [id number] September, [facility] [address] [id number] [address] [place] [address], [place] [address] September, [facility] [address] [id number] [place] [id number] Aug, [facility] [address] [id number] [facility] [address] Aug, [facility] [address] [id number] [address] [place] [address], [place] [address] Jul, [facility] [address] [id number] [place] [id number] Jul, [facility] [address] [id number] [address] [place] [address], [place] [address] Jul, [facility] [address] [id number] [place] [id number] Jun, [facility] [address] [id number] [address] [place] [address], [place] [address] Jun, [facility] [address] [id number] [address] [place] [address], [place] [address] Jun, [facility] [address] [id number] [place] [id number] Jun, [facility] [address] [id number] [place] [id number] May, [facility] [address] [id number] [address] [place] [address], [place] [address] May, [facility] [address] [facility] [id number] [address] [place] [address], [place] [address] Apr, [facility] [place] [address] [id number] [place] [id number] Mar, [facility] [address] [id number] [address] [place] [address], [place] [address] Mar, [facility] [address] [facility] [id number] [address] [place] [address], [place] [address] Mar, [facility] [address] [facility] [id number] [address] [place] [address], [place] [address] Mar, [facility] [address] [id number] [place] [id number] Mar, [facility] [address] [id number] [place] [id number] Feb, [facility] [address] [id number] [address] [place] [address], [place] [address] Feb, [facility] [address] [id number] [place] [id number] Feb, [facility] [address] [id number] [address] [place] [address], [place] [address] Feb, [facility] [place] [address] [id number] [place] [id number] Feb, [facility] [place] [facility] [address] [id number] [address] [place] [address] Feb, [facility] [place] [address] [id number] [place] [id number] Jan, [facility] [place] [address] [id number] [place] [id number] Dec, [facility] [place] [address] [id number] [place] [id number] Nov, [facility] [place] [address] [id number] [place] [id number] Oct, [facility] [place] [address] [id number] [place] [id number] Oct, [facility] [place] [address] [id number] [place] [id number] Oct, [facility] [place] [address] [id number] [place] [id number] Oct, [facility] [address] [id number] [address] [place] [address] September, [facility] [place] [address] [id number] [place] [id number] September, [facility] [place] [facility] [facility] [address] [id number] [address] [place] [address] Aug, [facility] [place] [address] [id number] [place] [id number] Aug, [facility] [place] [address] [id number] [place] [id number] Jun, [facility] [place] [address] [id number] [place] [id number] Jun, [facility] [place] [address] [id number] [place] [id number] Feb, [facility] [address] [id number] [address] [place] [address] Feb, [facility] [place] [address] [id number] [place] [id number] Feb, [facility] [address] [id number] [place] [id number] Dec, [facility] [address] [facility] [id number] [address] [place] [address] Dec, [facility] [address] [id number] [place] [id number] Dec, [facility] [place] [address] [id number] [place] [id number] Aug, [facility] [place] [address] [id number] [place] [id number] May, [facility] [address] [id number] [place] [id number] May, [facility] [address] [facility] [id number] [address] [place] [address] Apr, [facility] [address] [id number] [address] [place] [address] September, [facility] [address] [facility] [id number] [address] [place] [address] Apr, [facility] [address] [facility] [id number] [address] [place] [address] Apr, [facility] [address] [id number] [address] [place] [address] Apr, IMMUNIZATIONS No Known Immunizations SOCIAL HISTORY Never Assessed REASON FOR VISIT 3 month follow up on diabetes. verónica Cordero PLAN OF CARE Activity Details Follow Up 3 Months Reason: VITAL SIGNS Height 66 in 2018-01-29 Weight 132 lbs 2018-01-29 Temperature 98.7 degrees Fahrenheit 2018-01-29 Heart Rate 84 bpm 2018-01-29 Respiratory Rate 16 2018-01-29 BMI 21.30 kg/m2 2018-01-29 Blood pressure systolic 116 mmHg 2018-01-29 Blood pressure diastolic 72 mmHg 2018-01-29 MEDICATIONS Medication Instructions Dosage Frequency Start Date End Date Duration S MitraSpan Ultra Test Test Strips as directed Oct, Active Ventolin HFA 108 (90 Base) MCG/ACT INHALE 2 PUFF S EVERY 4 HOURS NEEDED... Active Meclizine HCl 25 MG Orally 3 times a day 1 tablet as needed for d izziness 8h Nov, Active Accolate 20 mg Orally Twice a day 1 tablet 12h 0 Active Metformin HCl 500 mg Orally twice a day 2 0.5 tabs in AM an d 1 1/2 tablets in pm 12h Active Spiriva HandiHaler 18 MCG INHALE THE CON TENTS OF ONE (1) CAPSULE ONCE DAILY... Active Albuterol Sulfate (2.5 MG/3ML) 0.083% Inhalation Three times a day 3 m l 8h Active Pravastatin Sodium 20 mg Orally Once a day 1 tablet 24h Active Symbicort 160-4.5 MCG/ACT INHALE 2 PUFFS BY MOUTH TWICE DAILY... . Active Aspirin Adult Low Dose 81 MG Orally Once a day 1 tablet 24h Active Omeprazole 40 mg Orally Once a day 1 capsule 24h Oct, Active RESULTS Name Result Date Reference Range A1C (IN HOUSE) 2018-01-29 A1C IN HOUSE 6.3 4.3 - 5.6 % Previous A1c 6.2 Lot [id number] Exp date 10/29 PROCEDURES Procedure Date Ordered Result Body Site [facility] VISIT ESTABLISHED PATIENT Jan 29, 2018 GLYCATED HEMOGLOBIN TEST Jan 29, 2018 INSTRUCTIONS MEDICATIONS ADMINISTERED No Known Medications [...]
--- OUTSIDE RECORDS SUMMARY | 2019-07-19 23:18 | XMS REPORT ---
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 Name Role Phone Migration, Doctor Unavailable Unavailable PROBLEMS Type Condition ICD9-CM Code UEC81-JG Code Onset Dates Condition S tatus SNOMED Code Problem Other and unspecified hyperlipidemia E78.5 Active 62660145 Problem Type 2 diabetes mellitus wit h other specified complication, without long-term current use of insulin E11.69 Active 85034797 Problem Chronic airway obstruction, not elsewhere classified J44.9 Active 06917087 Problem CAD (coronary artery disease) I25.10 Active 33502334 ALLERGIES No Information ENCOUNTERS Encounter Location Date Diagnosis [place] [id number] [place] [id number] Jun, Encounter for Medicare annual wellness e xam Z00.00 ; Type 2 diabetes mellitus with other specified complication, without long-term current use of insulin E11.69 ; Chronic airway obstruction, not elsewhere classified J44.9 ; CAD (coronary artery disease) I25.10 ; Other and unspecified hyperlipidemia E78.5 and Breast cancer screening Z12.31 [facility] [place] [address] [id number] [place] [id number] Jun, DM w/o complication type II E11.9 ; 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, 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 ; CAD (coronary artery disease) I25.10 and Vertigo R42 [facility] [place] [address] [facility] [id number] [place] [id number] Feb, Encounter for immunization Z23 [facility] [place] [address] [facility] [id number] [place] [id number] Jan, DM w/o complication type II E11.9 and Ch ronic airway obstruction, not elsewhere classified J44.9 [facility] [place] [address] [facility] [id number] [place] [id number] Dec, CAD (coronary artery disease) I25.10 [facility] [place] [address] [id number] [place] [id number] Oct, DM w/o complication type II E11.9 ; 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, 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 and CAD (coronary artery disease) I25.10 [facility] [place] [address] [id number] [place] [id number] Jul, DM w/o complication type II E11.9 ; 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, 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.9 and Infective urethritis N34.2 [facility] [place] [address] [id number] [place] [id number] Jun, Syncope and collapse R55 [facility] [place] [address] [id number] [place] [id number] Jun, [facility] [place] [address] [id number] [place] [id number] May, Bronchitis J40 [facility] [place] [address] [id number] [place] [id number] May, [facility] [place] [address] [id number] [place] [id number] May, [facility] [place] [address] [id number] [place] [id number] Apr, DM w/o complication type II E11.9 [facility] [place] [address] [id number] [place] [id number] Mar, DM w/o complication type II E11.9 ; 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, not 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 J44.9 ; Dysuria R30.0 ; Tinea pedis of right foot B35.3 and Encounter for immunization Z23 [facility] [place] [address] [id number] [place] [id number] Feb, Medicare welcome exam Z00.00 [facility] [place] [address] [id number] [place] [id number] Jan, Chronic airway obstruction, not elsewher e classified J44.9 [facility] [place] [address] [id number] [place] [id number] Dec, [facility] [place] [address] [id number] [place] [id number] Dec, DM w/o complication type II E11.9 ; 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, 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 J44.9 and Acute cystitis with hematuria N30.01 [facility] [place] [address] [id number] [place] [id number] 05 Oct, 2016 Encounter for screening for malignant ne oplasm of colon Z12.11 [facility] [place] [address] [id number] [place] [id number] 02 Oct, 2016 Medicare welcome exam Z00.00 [facility] [place] [address] [id number] [place] [id number] September, Medicare welcome exam Z00.00 and Encount er for immunization Z23 [facility] [place] [address] [id number] [place] [id number] September, Bronchitis J40 [facility] [place] [address] [id number] [place] [id number] September, Bronchitis J40 [facility] [place] [address] [id number] [place] [id number] September, Other and unspecified hyperlipidemia E78 .5 [facility] [place] [address] [id number] [place] [id number] Aug, DM w/o complication type II E11.9 ; 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, 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.9 and Other and unspecified hyperlipidemia E78.5 [facility] [place] [address] [id number] [place] [id number] May, DM w/o complication type II E11.9 and Ch ronic airway obstruction, not elsewhere classified J44.9 [facility] [place] [address] [id number] [place] [id number] Apr, Acute cystitis with hematuria N30.01 [facility] [place] [address] [id number] [place] [id number] Feb, DM w/o complication type II E11.9 [facility] [place] [address] [id number] [place] [id number] Feb, Chronic airway obstruction, not elsewher e classified J44.9 ; DM w/o complication type II E11.9 and Encounter for immunization Z23 [facility] [place] [address] [id number] [place] [id number] Dec, [facility] [place] [address] [id number] [place] [id number] Nov, Chronic airway obstruction, not elsewher e classified J44.9 [facility] [place] [address] [id number] [place] [id number] Oct, DM w/o complication type II E11.9 [facility] [address] [id number] [place] [address] Oct, [facility] [place] [address] [id number] [place] [id number] Aug, Chronic airway obstruction, not elsewher e classified J44.9 and DM w/o complication type II E11.9 [facility] [place] [address] [id number] [place] [id number] Aug, Chronic airway obstruction, not elsewher e classified J44.9 [facility] [place] [address] [id number] [place] [id number] Aug, DM w/o complication type II E11.9 and Ch ronic airway obstruction, not elsewhere classified J44.9 [facility] [place] [address] [id number] [place] [id number] Jul, [facility] [place] [address] [id number] [place] [id number] Jul, DM w/o complication type II E11.9 [facility] [place] [address] [id number] [place] [id number] Jun, [facility] [place] [address] [id number] [place] [id number] Jun, [facility] [place] [address] [id number] [place] [id number] Jun, Chronic airway obstruction, not elsewher e classified J44.9 ; DM w/o complication type II E11.9 and Other and unspecified hyperlipidemia E78.5 [facility] [place] [address] [id number] [place] [id number] 11 Jun, 2015 CAD (coronary artery disease) I25.10 and Dizziness R42 [facility] [place] [address] [facility] [id number] [place] [id number] 10 Jun, 2015 Bronchitis J40 [facility] [place] [address] [facility] [id number] [place] [id number] May, Hematoma T14.8 [facility] [place] [address] [facility] [id number] [place] [id number] May, [facility] [place] [address] [facility] [id number] [place] [id number] May, Bronchitis J40 [facility] [place] [address] [facility] [id number] [place] [id number] Apr, Bronchitis J40 [facility] [address] [facility] [id number] [address] [place] [address] Apr, [facility] [place] [address] [id number] [place] [id number] Mar, [facility] [address] [address] [id number] [id number] Mar, [facility] [place] [address] [id number] [place] [id number] Mar, [facility] [address] [id number] [id number] Mar, [facility] [place] [address] [id number] [place] [id number] Mar, SOB (shortness of breath) R06.02 [facility] [place] [address] [facility] [id number] [place] [id number] Feb, Urinary tract infection, site not specif ied N39.0 and Hematuria, unspecified R31.9 [facility] [place] [address] [id number] [place] [id number] Feb, DM w/o complication type II E11.9 ; Enco unter for immunization Z23 and Chronic airway obstruction, not elsewhere classified J44.9 [facility] [address] [id number] JOCELIN ELL[place] [id number] Jan, [facility] [address] [facility] [id number] [place] [id number] Jan, [facility] [place] [address] [id number] [place] [id number] Dec, [facility] [place] [address] [id number] [place] [id number] Dec, [facility] [place] [address] [id number] [place] [id number] Dec, [facility] [place] [address] [id number] [place] [id number] Dec, [facility] [place] [address] [id number] [place] [id number] Dec, Blood in the stool 578.1 [facility] [place] [address] [id number] [place] [id number] Nov, [facility] [place] [address] [id number] [place] [id number] Nov, Colon cancer screening V76.51 [facility] [place] [address] [id number] [place] [id number] Nov, Vertigo 780.4 [facility] [place] [address] [id number] [place] [id number] Nov, Routine gynecological examination V72.31 ; Pap test, as part of routine gynecological examination V76.2 ; Breast cancer screening V76.10 ; Postmenopausal V49.81 and Colon cancer screening V76.51 [facility] [place] [address] [id number] [place] [id number] Nov, [facility] [place] [address] [facility] [id number] [place] [id number] Nov, [facility] [address] [facility] [id number] [facility] [place] [address] Nov, [facility] [place] [address] [facility] [id number] [place] [id number] Oct, Diabetes 250.00 ; COPD (chronic obstruct misha pulmonary disease) 496 and GERD (gastroesophageal reflux disease) 530.81 [facility] [address] [facility] [id number] [address] [place] [address] Oct, [facility] [place] [address] [id number] [place] [id number] Oct, [facility] [place] [address] [id number] [place] [id number] Oct, [facility] [place] [address] [id number] [place] [id number] Oct, Reflux 530.81 [facility] [address] [facility] [id number] [address] [place] [address] Oct, [facility] [place] [address] [id number] [place] [id number] Oct, [facility] [place] [address] [id number] [place] [id number] Oct, [facility] [place] [address] [id number] [place] [id number] Oct, Dysuria 788.1 [facility] [place] [address] [id number] [place] [id number] Oct, Dysuria 788.1 [facility] [address] [facility] [id number] [address] [place] [address] September, [facility] [place] [address] [id number] [place] [id number] September, Diabetes 250.00 and COPD (chronic obstru ctive pulmonary disease) 496 [facility] [place] [address] [id number] [place] [id number] September, [facility] [place] [address] [id number] [place] [id number] September, [facility] [address] [facility] [id number] [id number] September, [facility] [place] [address] [id number] [place] [id number] Aug, Osteoarthritis 715.90 ; Diabetes 250.00 and COPD (chronic obstructive pulmonary disease) 496 [facility] [place] [address] [id number] [place] [id number] Aug, Pure hypercholesterolemia 272.0 ; Essent ial hypertension, benign 401.1 and Loss of weight 783.21 [facility] [place] [facility] [address] [id number] [address] [place] [address], [place] [address] 14 Aug, 2014 [facility] [place] [facility] [address] [facility] [id number] [address] [place] [address] Aug, [facility] [place] [address] [id number] [place] [id number] Jul, [facility] [place] [facility] [address] [facility] [id number] [address] [place] [address] Jul, [facility] [place] [facility] [address] [facility] [id number] [address] [place] [address] Jun, [facility] [place] [facility] [address] [facility] [id number] [address] [place] [address] Jun, [facility] [place] [address] [facility] [id number] [place] [id number] Jun, [facility] [place] [facility] [address] [facility] [id number] [address] [place] [address] May, [facility] [place] [address] [id number] [place] [id number] May, [facility] [place] [address] [id number] [place] [id number] Apr, [facility] [place] [facility] [address] [id number] [address] [place] [address], [place] [address] Apr, [facility] [place] [address] [id number] [place] [id number] Apr, [facility] [place] [facility] [address] [facility] [id number] [address] [place] [address] Apr, [facility] [place] [address] [facility] [id number] [place] [id number] Apr, [facility] [address] [facility] [id number] [address] [place] [address] Apr, [facility] [place] [address] [id number] [place] [id number] Feb, [facility] [address] [id number] [address] [place] [address], [place] [address] Feb, [facility] [place] [address] [id number] [place] [id number] Feb, [facility] [address] [id number] [address] [place] [address], [place] [address] Feb, [facility] [address] [id number] [address] [place] [address], [place] [address] Jan, [facility] [place] [address] [id number] [place] [id number] Jan, [facility] [address] [id number] [address] [place] [address], [place] [address] Jan, [facility] [place] [address] [id number] [place] [id number] Jan, [facility] [address] [id number] [address] [place] [address], [place] [address] Jan, [facility] [address] [id number] [address] [place] [address], [place] [address] Dec, [facility] [address] [id number] [address] [place] [address], [place] [address] Dec, [facility] [place] [address] [id number] [place] [id number] September, [facility] [address] [id number] [address] [place] [address], [place] [address] September, [facility] [address] [id number] [address] [place] [address], [place] [address] September, [facility] [place] [address] [id number] [place] [id number] September, [facility] [place] [address] [id number] [place] [id number] September, [facility] [address] [id number] [address] [place] [address], [place] [address] September, [facility] [place] [address] [id number] [place] [id number] Aug, [facility] [address] [id number] [address] [place] [address], [place] [address] Aug, [facility] [address] [id number] [address] [place] [address], [place] [address] Jul, [facility] [place] [address] [id number] [place] [id number] Jul, [facility] [address] [id number] [address] [place] [address], [place] [address] Jul, [facility] [place] [address] [id number] [place] [id number] Jun, [facility] [address] [id number] [address] [place] [address], [place] [address] Jun, [facility] [address] [id number] [address] [place] [address], [place] [address] Jun, [facility] [place] [address] [id number] [place] [id number] Jun, [facility] [place] [address] [id number] [place] [id number] May, [facility] [address] [id number] [address] [place] [address], [place] [address] May, [facility] [address] [id number] [address] [place] [address], [place] [address] Apr, [facility] [place] [address] [id number] [place] [id number] Mar, [facility] [address] [id number] [address] [place] [address], [place] [address] Mar, [facility] [address] [id number] [address] [place] [address], [place] [address] Mar, [facility] [address] [id number] [address] [place] [address] Mar, [facility] [place] [address] [id number] [place] [id number] Mar, [facility] [place] [address] [id number] [place] [id number] Feb, [facility] [place] [facility] [address] [facility] [id number] [address] [place] [address] Feb, [facility] [place] [address] [id number] [place] [id number] Feb, [facility] [place] [facility] [address] [id number] [address] [place] [address] Feb, [facility] [place] [address] [id number] [place] [id number] Feb, [facility] [place] [facility] [address] [facility] [id number] [address] [place] [address] Feb, [facility] [place] [address] [id number] [place] [id number] Jan, [facility] [place] [address] [id number] [place] [id number] Dec, [facility] [place] [address] [id number] [place] [id number] Nov, [facility] [place] [address] [id number] [place] [id number] Oct, [facility] [place] [address] [id number] [place] [id number] Oct, [facility] [place] [address] [id number] [place] [id number] Oct, [facility] [place] [address] [id number] [place] [id number] Oct, [facility] [address] [facility] [id number] [address] [place] [address] September, [facility] [place] [address] [id number] [place] [id number] September, [facility] [facility] [address] [id number] [address] [place] [address], [place] [address] Aug, [facility] [place] [address] [id number] [place] [id number] Aug, [facility] [place] [address] [id number] [place] [id number] Jun, [facility] [place] [address] [id number] [place] [id number] Jun, [facility] [place] [address] [id number] [place] [id number] Feb, [facility] [address] [id number] [address] [place] [address] Feb, [facility] [place] [address] [id number] [place] [id number] Feb, [facility] [place] [address] [id number] [place] [id number] Dec, [facility] [place] [facility] [address] [facility] [id number] [address] [place] [address] Dec, [facility] [place] [address] [id number] [place] [id number] Dec, [facility] [place] [address] [id number] [place] [id number] Aug, [facility] [place] [address] [id number] [place] [id number] May, [facility] [place] [address] [id number] [place] [id number] May, [facility] [place] [facility] [address] [facility] [id number] [address] [place] [address] Apr, [facility] [address] [facility] [id number] [address] [place] [address] September, [facility] [address] [facility] [id number] [address] [place] [address] Apr, [facility] [address] [facility] [id number] [address] [place] [address] Apr, [facility] [address] [facility] [id number] [address] [place] [address] 10 Apr, 2010 IMMUNIZATIONS No Known Immunizations SOCIAL HISTORY Never Assessed REASON FOR VISIT EMR-[facility] [place] PLAN OF CARE VITAL SIGNS MEDICATIONS No [...]
--- OUTSIDE RECORDS SUMMARY | 2019-07-19 23:18 | XMS REPORT ---
Author Author Zoie DISLA Organization [facility] Address [address] [place] [address] Care Team Providers Care Sales Vendor Name Role Phone ELLEN DISLA Unavailable PROBLEMS Type Condition ICD9-CM Code JBN26-PF Code Onset Dates Condition S tatus SNOMED Code Problem Other and unspecified hyperlipidemia E78.5 Active 79582230 Problem CAD (coronary artery disease) I25.10 Active 57585002 Problem Chronic airway obstruction, not elsewhere classified J44.9 Active 95053732 Problem DM w/o complication type II E11.9 Ac tive [id number] ALLERGIES No Information ENCOUNTERS Encounter Location Date Diagnosis [address], [place] [id number] Feb, Encounter for immunization Z23 [facility] [address], [place] [id number] Jan, DM w/o complication type II E11.9 and Ch ronic airway obstruction, not elsewhere classified J44.9 [facility] [id number] [place] [address], [place] [id number] Dec, CAD (coronary artery disease) I25.10 [place] [id number] [place] [address], [place] [id number] Oct, DM w/o complication type II E11.9 ; Rn Traveling 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, not elsewhere classified J44.9 and CAD (coronary artery disease) I25.10 [facility] [address] [id number] [place] [id number] Jul, DM w/o complication type II E11.9 ; Rn Traveling 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, not elsewhere classified J44.9 and Infective urethritis N34.2 [facility] [id number] [place], [place] [address], [place] [id number] Jun, Syncope and collapse R55 [facility] [address] [id number] [place] [id number] Jun, [facility] [place] [address] [id number] [place] [id number] May, Bronchitis J40 [facility] [address] [id number] [place] [id number] May, [facility] [place] [address] [id number] [place] [id number] May, [facility] [place] [address] [id number] [place] [id number] Apr, DM w/o complication type II E11.9 [facility] [place] [address] [id number] [place] [id number] Mar, DM w/o complication type II E11.9 ; Rn Traveling 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, not elsewhere classified J44.9 ; Dysuria R30.0 ; Tinea pedis of right foot B35.3 and Encounter for immunization Z23 [facility] [address] [id number] [place] [id number] Feb, Medicare welcome exam Z00.00 [facility] [address] [id number] [place] [id number] Jan, Chronic airway obstruction, not elsewher e classified J44.9 [facility] [place] [address] [id number] [place] [id number] Dec, [facility] [place] [address] [id number] [place] [id number] Dec, DM w/o complication type II E11.9 ; Rn Traveling 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, not elsewhere classified J44.9 and Acute cystitis with hematuria N30.01 [facility] [place] [address] [id number] [place] [id number] Oct, Encounter for screening for malignant ne oplasm of colon Z12.11 [facility] [place] [address] [id number] [place] [id number] Oct, Medicare welcome exam Z00.00 [facility] [place] [address] [id number] [place] [id number] September, Medicare welcome exam Z00.00 and Encount er for immunization Z23 [facility] [place] [address] [facility] [id number] [place] [id number] September, Bronchitis J40 [facility] [place] [address] [id number] [place] [id number] September, Bronchitis J40 [facility] [place] [address] [facility] [id number] [place] [id number] September, Other and unspecified hyperlipidemia E78 .5 [facility] [place] [address] [facility] [id number] [place] [id number] Aug, DM w/o complication type II E11.9 ; Rn Traveling 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, not elsewhere classified J44.9 and Other and unspecified hyperlipidemia E78.5 [facility] [place] [address] [facility] [id number] [place] [id number] May, DM w/o complication type II E11.9 and Ch ronic airway obstruction, not elsewhere classified J44.9 [facility] [place] [address] [facility] [id number] [place] [id number] Apr, Acute cystitis with hematuria N30.01 [facility] [place] [address] [facility] [id number] [place] [id number] Feb, DM w/o complication type II E11.9 [facility] [place] [address] [facility] [id number] [place] [id number] Feb, Chronic airway obstruction, not elsewher e classified J44.9 ; DM w/o complication type II E11.9 and Encounter for immunization Z23 [facility] [place] [address] [facility] [id number] [place] [id number] Dec, [facility] [place] [address] [facility] [id number] [place] [id number] Nov, Chronic airway obstruction, not elsewher e classified J44.9 [facility] [place] [address] [facility] [id number] [place] [id number] Oct, DM w/o complication type II E11.9 [facility] [address] [facility] [id number] [address] [address] Oct, [facility] [place] [address] [id number] [place] [id number] Aug, Chronic airway obstruction, not elsewher e classified J44.9 and DM w/o complication type II E11.9 [facility] [place] [address] [id number] [place] [id number] Aug, Chronic airway obstruction, not elsewher e classified J44.9 [facility] [place] [address] [id number] [place] [id number] Aug, DM w/o complication type II E11.9 and Ch ronic airway obstruction, not elsewhere classified J44.9 [facility] [place] [address] [id number] [place] [id number] Jul, [facility] [place] [address] [id number] [place] [id number] Jul, DM w/o complication type II E11.9 [facility] [place] [address] [id number] [place] [id number] Jun, [facility] [place] [address] [id number] [place] [id number] Jun, [facility] [place] [address] [id number] [place] [id number] Jun, Chronic airway obstruction, not elsewher e classified J44.9 ; DM w/o complication type II E11.9 and Other and unspecified hyperlipidemia E78.5 [facility] [place] [address] [id number] [place] [id number] Jun, CAD (coronary artery disease) I25.10 and Dizziness R42 [facility] [place] [address] [id number] [place] [id number] Jun, 2015 Bronchitis J40 [facility] [place] [address] [id number] [place] [id number] May, Hematoma T14.8 [facility] [place] [address] [id number] [place] [id number] May, [facility] [place] [address] [id number] [place] [id number] May, Bronchitis J40 [facility] [place] [address] [facility] [id number] [place] [id number] Apr, Bronchitis J40 [facility] [address] [facility] [id number] 100[address] [place] [address] Apr, [facility] [place] [address] [facility] [id number] [place] [id number] Mar, [facility] [address] [id number] [id number] Mar, [facility] [place] [address] [facility] [id number] [place] [id number] Mar, [facility] [address] [id number] [id number] Mar, [facility] [place] [address] [facility] [id number] [place] [id number] Mar, SOB (shortness of breath) R06.02 [facility] [place] [address] [id number] [place] [id number] Feb, Urinary tract infection, site not specif ied N39.0 and Hematuria, unspecified R31.9 [facility] [place] [address] [facility] [id number] [place] [id number] Feb, DM w/o complication type II E11.9 ; Enco unter for immunization Z23 and Chronic airway obstruction, not elsewhere classified J44.9 [place] [id number][place] [id number] Jan, [facility] [id number][place] [id number] Jan, [facility] [place] [address] [facility] [id number] [place] [id number] Dec, [facility] [place] [address] [facility] [id number] [place] [id number] Dec, [facility] [place] [address] [facility] [id number] [place] [id number] Dec, [facility] [place] [address] [facility] [id number] [place] [id number] Dec, [facility] [place] [address] [id number] [place] [id number] Dec, Blood in the stool 578.1 [facility] [place] [address] [id number] [place] [id number] Nov, [facility] [place] [address] [id number] [place] [id number] Nov, Colon cancer screening V76.51 [facility] [place] [address] [id number] [place] [id number] Nov, Vertigo 780.4 [facility] [place] [address] [id number] [place] [id number] Nov, Routine gynecological examination V72.31 ; Pap test, as part of routine gynecological examination V76.2 ; Breast cancer screening V76.10 ; Postmenopausal V49.81 and Colon cancer screening V76.51 [facility] [place] [address] [id number] [place] [id number] Nov, [facility] [place] [address] [id number] [place] [id number] Nov, [facility] [address] [facility] [id number] [address] [place] [address] Nov, [facility] [place] [address] [facility] [id number] [place] [id number] Oct, Diabetes 250.00 ; COPD (chronic obstruct misha pulmonary disease) 496 and GERD (gastroesophageal reflux disease) 530.81 [facility] [address] [facility] [id number] [address] [place] [address] Oct, [facility] [place] [address] [id number] [place] [id number] Oct, [facility] [place] [address] [id number] [place] [id number] Oct, [facility] [place] [address] [id number] [place] [id number] Oct, Reflux 530.81 [facility] [address] [id number] [address] [place] [address] Oct, [facility] [place] [address] [facility] [id number] [place] [id number] Oct, [facility] [place] [address] [facility] [id number] [place] [id number] Oct, [facility] [place] [address] [facility] [id number] [place] [id number] Oct, Dysuria 788.1 [facility] [place] [address] [facility] [id number] [place] [id number] Oct, Dysuria 788.1 [facility] [address] [facility] [id number] [address] [place] [address] September, [facility] [place] [address] [facility] [id number] [place] [id number] September, Diabetes 250.00 and COPD (chronic obstru ctive pulmonary disease) 496 [facility] [place] [address] [facility] [id number] [place] [id number] September, [facility] [place] [address] [facility] [id number] [place] [id number] September, [facility] [place] [address] [address] [facility] [id number] [id number] September, [facility] [place] [address] [facility] [id number] [place] [id number] Aug, Osteoarthritis 715.90 ; Diabetes 250.00 and COPD (chronic obstructive pulmonary disease) 496 [facility] [place] 120 [facility] [id number] [place] [id number] Aug, Pure hypercholesterolemia 272.0 ; Essent ial hypertension, benign 401.1 and Loss of weight 783.21 [facility] [address] [facility] [id number] [address] [place] [address] Aug, [facility] [address] [facility] [id number] [address] [place] [address] Aug, [facility] [place] [address] [facility] [id number] [place] [id number] Jul, [facility] [address] [id number] [address] [place] [address], [place] [address] Jul, [facility] [address] [id number] [address] [place] [address], [place] [address] Jun, 2014 [facility] [address] [facility] [id number] [address] [place] [address], [place] [address] Jun, [facility] [place] [address] [id number] [place] [id number] Jun, [facility] [address] [id number] [address] [place] [address], [place] [address] May, [facility] [place] [address] [id number] [place] [id number] May, [facility] [place] [address] [id number] [place] [id number] Apr, [facility] [address] [facility] [id number] [address] [place] [address], [place] [address] Apr, [facility] [place] [address] [id number] [place] [id number] Apr, [facility] [address] [facility] [id number] [address] [place] [address], [place] [address] Apr, [facility] [place] [address] [id number] [place] [id number] Apr, [facility] [address] [id number] [address] [place] [address], [place] [address] Apr, [facility] [place] [address] [id number] [place] [id number] Feb, [facility] [address] [id number] [address] [place] [address], [place] [address] Feb, [facility] [place] [address] [id number] [place] [id number] Feb, [facility] [address] [facility] [id number] [address] [place] [address], [place] [address] Feb, [facility] [address] [facility] [id number] [address] [place] [address], [place] [address] Jan, [facility] [place] [address] [id number] [place] [id number] Jan, [facility] [address] [id number] [facility] [place] [address] Jan, [facility] [place] [address] [id number] [place] [id number] Jan, [facility] [address] [id number] [address] [place] [address], [place] [address] Jan, [facility] [address] [id number] [address] [place] [address], [place] [address] Dec, [facility] [address] [id number] [address] [place] [address], [place] [address] Dec, [facility] [place] [address] [id number] [place] [id number] September, [facility] [address] [id number] [address] [place] [address], [place] [address] September, [facility] [address] [id number] [address] [place] [address], [place] [address] September, [facility] [place] [address] [id number] [place] [id number] September, [facility] [place] [address] [id number] [place] [id number] September, [facility] [address] [id number] [address] [place] [address], [place] [address] September, [facility] [place] [address] [id number] [place] [id number] Aug, [facility] [address] [id number] [address] [place] [address], [place] [address] Aug, [facility] [address] [id number] [address] [place] [address], [place] [address] Jul, [facility] [place] [address] [id number] [place] [id number] Jul, [facility] [address] [id number] [address] [place] [address], [place] [address] Jul, [facility] [place] [address] [id number] [place] [id number] Jun, [facility] [address] [id number] [address] [place] [address], [place] [address] Jun, [facility] [address] [id number] [address] [place] [address], [place] [address] Jun, [facility] [place] [address] [id number] [place] [id number] Jun, [facility] [place] [address] [id number] [place] [id number] May, [facility] [address] [id number] [address] [place] [address], [place] [address] May, [facility] [address] [id number] [address] [place] [address] Apr, [facility] [place] [address] [id number] [place] [id number] Mar, [facility] [address] [id number] [address] [place] [address] Mar, [facility] [address] [facility] [id number] [address] [place] [address], [place] [address] Mar, [facility] [address] [id number] [address] [place] [address] Mar, [facility] [place] [address] [id number] [place] [id number] Mar, [facility] [place] [address] [id number] [place] [id number] Feb, [facility] [address] [id number] [address] [place] [address], [place] [address] Feb, [facility] [place] [address] [id number] [place] [id number] Feb, [facility] [address] [id number] [place] [address] Feb, [facility] [place] [address] [id number] [place] [id number] Feb, [facility] [address] [id number] [address] [place] [address] Feb, [facility] [place] [address] [id number] [place] [id number] Jan, [facility] [place] [address] [id number] [place] [id number] Dec, [facility] [place] [address] [id number] [place] [id number] Nov, [facility] [place] [address] [id number] [place] [id number] Oct, [facility] [place] [address] [id number] [place] [id number] Oct, [facility] [place] [address] [id number] [place] [id number] Oct, [facility] [place] [address] [id number] [place] [id number] Oct, [facility] [address] [id number] [address] [place] [address] September, [facility] [place] [address] [id number] [place] [id number] September, [facility] [address] [id number] [address] [place] [address] Aug, [facility] [place] [address] [id number] [place] [id number] Aug, [facility] [place] [address] [id number] [place] [id number] Jun, [facility] [place] [address] [id number] [place] [id number] Jun, [facility] [place] [address] [id number] [place] [id number] Feb, [facility] [address] [facility] [id number] [address] [place] [address] Feb, [facility] [address] [id number] [place] [id number] Feb, [facility] [place] [address] [id number] [place] [id number] Dec, [facility] [address] [id number] [address] [place] [address] Dec, [facility] [place] [address] [id number] [place] [id number] Dec, [facility] [place] [address] [id number] [place] [id number] Aug, [facility] [place] [address] [id number] [place] [id number] May, [facility] [address] [id number] [place] [id number] May, [facility] [address] [facility] [id number] [address] [place] [address] Apr, [facility] [address] [facility] [id number] [address] [place] [address] September, [facility] [address] [facility] [id number] [address] [place] [address] Apr, [facility] [address] [facility] [id number] [address] [place] [address] Apr, [facility] [address] [id number] [address] [place] [id number] Apr, IMMUNIZATIONS Vaccine Route Administration Date Status FLULAVAL QUAD 0.5ML (6 MO & UP) 2017 IM Intramuscular Feb 17 Administered SOCIAL HISTORY Never Assessed REASON FOR VISIT Flu shot [facility] PLAN OF CARE VITAL SIGNS MEDICATIONS Unknown Medications RESULTS No Results PROCEDURES Procedure Date Ordered Result Body Site FLULAVAL QUAD 0.5ML (6 MO AND UP) 2017Feb 17, 2018 SINGLE IMMUNIZATION ADMIN Feb 17, 2018 INSTRUCTIONS MEDICATIONS ADMINISTERED No Known Medications [...]
--- OUTSIDE RECORDS SUMMARY | 2019-07-19 23:19 | XMS REPORT ---
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 Name Role Phone ELLEN DISLA Unavailable PROBLEMS Type Condition ICD9-CM Code WPJ47-OC Code Onset Dates Condition S tatus SNOMED Code Problem Diaphragmatic hernia without mention of obstruction or gangrene 553.3 Active 16823070 Problem Unspecified senile cataract 366.10 Ac tive 76769463 Problem Essential hypertension, benign 401.1 Active 5805941 Problem Loss of weight 783.21 Active 68463 5001 Problem Other and unspecified hyperlipidemia E78.5 Active 23117177 Problem CAD (coronary artery disease) I25.10 Active 82192014 Problem GERD (gastroesophageal reflux disease) 530.81 Active 945681873 Problem Asthma 493.90 Active 317048465 Problem Chronic airway obstruction, not elsewhere classified J44.9 Active 04023214 Problem DM w/o complication type II E11.9 Ac tive 91241236 ALLERGIES No Information ENCOUNTERS Encounter Location Date Diagnosis [place] [id number] [place] [address], [place] [id number] Dec, CAD (coronary artery disease) I25.10 [place] [id number] [place] [id number] Oct, DM w/o complication type II E11.9 ; [employer]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, 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.9 and CAD (coronary artery disease) I25.10 [place] [id number] [place] [id number] Jul, DM w/o complication type II E11.9 ; [employer]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, 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.9 and Infective urethritis N34.[address] [place] [address], [place] [id number] Jun, Syncope and collapse R55 [place] [id number] [place] [id number] Jun, [facility] [place] [address] [id number] [place] [id number] May, Bronchitis J40 [facility] [address] [id number] [place] [id number] May, [facility] [place] [address] [id number] [place] [id number] May, [facility] [place] [address] [id number] [place] [id number] Apr, DM w/o complication type II E11.9 [facility] [place] [address] [id number] [place] [id number] Mar, DM w/o complication type II E11.9 ; [employer]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9 ; [employer]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, 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 and Acute cystitis with hematuria N30.01 [facility] [place] [address] [id number] [place] [id number] Oct, Encounter for screening for malignant ne oplasm of colon Z12.11 [facility] [place] [address] [id number] [place] [id number] Oct, Medicare welcome exam Z00.00 [facility] [place] [address] [id number] [place] [id number] September, Medicare welcome exam Z00.00 and Encount er for immunization Z23 [facility] [place] [address] [facility] [id number] [place] [id number] September, Bronchitis J40 [facility] [place] [address] [facility] [id number] [place] [id number] September, Bronchitis J40 [facility] [place] [address] [facility] [id number] [place] [id number] September, Other and unspecified hyperlipidemia E78 .5 [facility] [place] [address] [facility] [id number] [place] [id number] Aug, DM w/o complication type II E11.9 ; [employer]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, 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.9 and Other and unspecified hyperlipidemia E78.5 [facility] [place] [address] [facility] [id number] [place] [id number] May, DM w/o complication type II E11.9 and Ch ronic airway obstruction, not elsewhere classified J44.9 [facility] [place] [address] [facility] [id number] [place] [id number] Apr, Acute cystitis with hematuria N30.01 [facility] [place] [address] [facility] [id number] [place] [id number] Feb, DM w/o complication type II E11.9 [facility] [place] [address] [facility] [id number] [place] [id number] Feb, Chronic airway obstruction, not elsewher e classified J44.9 ; DM w/o complication type II E11.9 and Encounter for immunization Z23 [facility] [place] [address] [facility] [id number] [place] [id number] Dec, [facility] [place] [address] [facility] [id number] [place] [id number] Nov, Chronic airway obstruction, not elsewher e classified J44.9 [facility] [place] [address] [facility] [id number] [place] [id number] Oct, DM w/o complication type II E11.9 [facility] [address] [facility] [id number] [address] [address] Oct, [facility] [place] [address] [id number] [place] [id number] Aug, Chronic airway obstruction, not elsewher e classified J44.9 and DM w/o complication type II E11.9 [facility] [place] [address] [id number] [place] [id number] Aug, Chronic airway obstruction, not elsewher e classified J44.9 [facility] [place] [address] [id number] [place] [id number] Aug, DM w/o complication type II E11.9 and Ch ronic airway obstruction, not elsewhere classified J44.9 [facility] [place] [address] [id number] [place] [id number] Jul, [facility] [place] [address] [id number] [place] [id number] Jul, DM w/o complication type II E11.9 [facility] [place] [address] [id number] [place] [id number] Jun, [facility] [place] [address] [id number] [place] [id number] Jun, [facility] [place] [address] [id number] [place] [id number] Jun, Chronic airway obstruction, not elsewher e classified J44.9 ; DM w/o complication type II E11.9 and Other and unspecified hyperlipidemia E78.5 [facility] [place] [address] [id number] [place] [id number] Jun, CAD (coronary artery disease) I25.10 and Dizziness R42 [facility] [place] [address] [id number] [place] [id number] Jun, Bronchitis J40 [facility] [place] [address] [id number] [place] [id number] May, Hematoma T14.8 [facility] [place] [address] [id number] [place] [id number] May, [facility] [place] [address] [id number] [place] [id number] May, Bronchitis J40 [facility] [place] [address] [id number] [place] [id number] Apr, Bronchitis J40 [facility] [address] [facility] [id number] [address] [place] [address] Apr, [facility] [place] [address] [facility] [id number] [place] [id number] Mar, [facility] [address] [id number] [place] [id number] Mar, [facility] [place] [address] [facility] [id number] [place] [id number] Mar, [facility] [address] [id number] [id number] Mar, [facility] [place] [address] [facility] [id number] [place] [id number] Mar, SOB (shortness of breath) R06.02 [facility] [place] [address] [facility] [id number] [place] [id number] Feb, Urinary tract infection, site not specif ied N39.0 and Hematuria, unspecified R31.9 [facility] [place] [address] [facility] [id number] [place] [id number] Feb, DM w/o complication type II E11.9 ; Enco unter for immunization Z23 and Chronic airway obstruction, not elsewhere classified J44.9 [facility] [id number][place] [id number] Jan, [facility] [id number][place] [id number] Jan, [facility] [place] [address] [facility] [id number] [place] [id number] Dec, [facility] [place] [address] [facility] [id number] [place] [id number] Dec, [facility] [place] [address] [facility] [id number] [place] [id number] Dec, [facility] [place] [address] [facility] [id number] [place] [id number] Dec, [facility] [place] [address] [id number] [place] [id number] Dec, Blood in the stool 578.1 [facility] [place] [address] [id number] [place] [id number] Nov, [facility] [place] [address] [id number] [place] S [id number] Nov, Colon cancer screening V76.51 [facility] [place] [address] [id number] [place] [id number] Nov, Vertigo 780.4 [facility] [place] [address] [id number] [place] [id number] Nov, Routine gynecological examination V72.31 ; Pap test, as part of routine gynecological examination V76.2 ; Breast cancer screening V76.10 ; Postmenopausal V49.81 and Colon cancer screening V76.51 [facility] [place] [address] [id number] [place] [id number] Nov, [facility] [place] [address] [id number] [place] [id number] Nov, [facility] [address] [place] [id number] [address] [place] [address] Nov, [facility] [place] [address] [facility] [id number] [place] [id number] Oct, Diabetes 250.00 ; COPD (chronic obstruct misha pulmonary disease) 496 and GERD (gastroesophageal reflux disease) 530.81 [facility] [address] [facility] [id number] [address] [place] [address] Oct, [facility] [address] [id number] [place] [id number] Oct, [facility] [place] [address] [facility] [id number] [place] [id number] Oct, [facility] [address] [id number] [place] [id number] Oct, Reflux 530.81 [facility] [address] [id number] [address] [place] [address] Oct, [facility] [place] [address] [facility] [id number] [place] [id number] Oct, [facility] [place] [address] [facility] [id number] [place] [id number] Oct, [facility] [place] [address] [facility] [id number] [place] [id number] Oct, Dysuria 788.1 [facility] [place] [address] [facility] [id number] [place] [id number] Oct, Dysuria 788.1 [facility] [address] [facility] [id number] [address] [place] [address] September, [facility] [place] [address] [facility] [id number] [place] [id number] September, Diabetes 250.00 and COPD (chronic obstru ctive pulmonary disease) 496 [facility] [place] 120 [facility] [id number] [place] [id number] September, [facility] [place] [address] [facility] [id number] [place] [id number] September, [facility] [place] [address] [facility] [address] [id number] [id number] September, [facility] [place] [address] [facility] [id number] [place] [id number] Aug, Osteoarthritis 715.90 ; Diabetes 250.00 and COPD (chronic obstructive pulmonary disease) 496 [facility] [place] 120 [facility] [id number] [place] [id number] Aug, Pure hypercholesterolemia 272.0 ; Essent ial hypertension, benign 401.1 and Loss of weight 783.21 [facility] [address] [facility] [id number] [address] [place] [address] Aug, [facility] [address] [facility] [id number] [address] [place] [address] Aug, [facility] [place] [address] [facility] [id number] [place] [id number] Jul, [facility] [address] [id number] [address] [place] [address], [place] [address] Jul, [facility] [address] [id number] [address] [place] [address], [place] [address] Jun, 2014 [facility] [address] [facility] [id number] [address] [place] [address], [place] [address] Jun, [facility] [place] [address] [id number] [place] [id number] Jun, [facility] [address] [id number] [address] [place] [address], [place] [address] May, [facility] [place] [address] [id number] [place] [id number] May, [facility] [place] [address] [id number] [place] [id number] Apr, [facility] [address] [facility] [id number] [address] [place] [address], [place] [address] Apr, [facility] [place] [address] [id number] [place] [id number] Apr, [facility] [address] [facility] [id number] [address] [place] [address], [place] [address] Apr, [facility] [place] [address] [id number] [place] [id number] Apr, [facility] [address] [facility] [id number] [address] [place] [address], [place] [address] Apr, [facility] [place] [address] [id number] [place] [id number] Feb, [facility] [address] [id number] [address] [place] [address], [place] [address] Feb, [facility] [place] [address] [id number] [place] [id number] Feb, [facility] [address] [facility] [id number] [address] [place] [address], [place] [address] Feb, [facility] [address] [facility] [id number] [address] [place] [address], [place] [address] Jan, [facility] [place] [address] [id number] [place] [id number] Jan, [facility] [address] [id number] [facility] [address] Jan, [facility] [place] [address] [id number] [place] [id number] Jan, [facility] [address] [id number] [address] [place] [address], [place] [address] Jan, [facility] [address] [id number] [address] [place] [address], [place] [address] Dec, [facility] [address] [id number] [address] [place] [address], [place] [address] Dec, [facility] [place] [address] [id number] [place] [id number] September, [facility] [address] [id number] [address] [place] [address], [place] [address] September, [facility] [address] [id number] [address] [place] [address], [place] [address] September, [facility] [place] [address] [id number] [place] [id number] September, [facility] [place] [address] [id number] [place] [id number] September, [facility] [address] [id number] [address] [place] [address], [place] [address] September, [facility] [place] [address] [id number] [place] [id number] Aug, [facility] [address] [id number] [address] [place] [address], [place] [address] Aug, [facility] [address] [id number] [address] [place] [address], [place] [address] Jul, [facility] [place] [address] [id number] [place] [id number] Jul, [facility] [address] [id number] [address] [place] [address], [place] [address] Jul, [facility] [place] [address] [id number] [place] [id number] Jun, [facility] [address] [id number] [address] [place] [address], [place] [address] Jun, [facility] [address] [id number] [address] [place] [address], [place] [address] Jun, [facility] [place] [address] [id number] [place] [id number] Jun, [facility] [place] [address] [id number] [place] [id number] May, [facility] [address] [id number] [address] [place] [address], [place] [address] May, [facility] [address] [facility] [id number] [address] [place] [address] Apr, [facility] [place] [address] [id number] [place] [id number] Mar, [facility] [address] [id number] [address] [place] [address] Mar, [facility] [address] [facility] [id number] [address] [place] [address], [place] [address] Mar, [facility] [address] [id number] [address] [place] [address] Mar, [facility] [place] [address] [id number] [place] [id number] Mar, [facility] [place] [address] [id number] [place] [id number] Feb, [facility] [address] [id number] [address] [place] [address], [place] [address] Feb, [facility] [place] [address] [id number] [place] [id number] Feb, [facility] [address] [id number] [address] [place] [address], [place] [address] Feb, [facility] [place] [address] [id number] [place] [id number] Feb, [facility] [place] [facility] [address] [id number] [address] [place] [address] Feb, [facility] [place] [address] [id number] [place] [id number] Jan, [facility] [place] [address] [id number] [place] [id number] Dec, [facility] [place] [address] [id number] [place] [id number] Nov, [facility] [place] [address] [id number] [place] [id number] Oct, [facility] [place] [address] [id number] [place] [id number] Oct, [facility] [place] [address] [id number] [place] [id number] Oct, [facility] [place] [address] [id number] [place] [id number] Oct, [facility] [place] [facility] [address] [id number] [address] [place] [address] September, [facility] [place] [address] [id number] [place] [id number] September, [facility] [place] [facility] [address] [facility] [id number] [address] [place] [address] Aug, [facility] [place] [address] [id number] [place] [id number] Aug, [facility] [place] [address] [id number] [place] [id number] Jun, [facility] [place] [address] [id number] [place] [id number] Jun, [facility] [place] [address] [id number] [place] [id number] Feb, [facility] [place] [facility] [address] [facility] [id number] [address] [place] [address] Feb, [facility] [address] [id number] [place] [id number] Feb, [facility] [address] [id number] [place] [id number] Dec, [facility] [address] [id number] [address] [place] [address] Dec, [facility] [address] [id number] [place] [id number] Dec, [facility] [address] [id number] [place] [id number] Aug, [facility] [address] [id number] [place] [id number] May, [facility] [address] [id number] [place] [id number] May, [facility] [address] [facility] [id number] [address] [place] [address] Apr, [facility] [address] [facility] [id number] [address] [place] [address] September, [facility] [address] [facility] [id number] [address] [place] [address] Apr, [facility] [address] [id number] [address] [place] [address] Apr, [facility] [address] [place] [id number] [address] [place] [address] Apr, IMMUNIZATIONS No Known Immunizations SOCIAL HISTORY Never Assessed REASON FOR VISIT Medication refill request PLAN OF CARE VITAL SIGNS MEDICATIONS Medication Instructions Dosage Frequency Start Date End Date Duration S tatus Pravastatin Sodium 20 mg Orally Once a [...]
--- OUTSIDE RECORDS SUMMARY | 2019-07-19 23:19 | XMS REPORT ---
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 Name Role Phone ELLEN DISLA Unavailable PROBLEMS Type Condition ICD9-CM Code [id number] Code Onset Dates Condition S tatus SNOMED Code Problem Diaphragmatic hernia without mention of obstruction or gangrene 553.3 Active 47778070 Problem Unspecified senile cataract 366.10 Ac tive 48144853 Problem Essential hypertension, benign 401.1 Active 3804475 Problem Loss of weight 783.21 Active 19865 5001 Problem Other and unspecified hyperlipidemia E78.5 Active 91195264 Problem CAD (coronary artery disease) I25.10 Active 50484526 Problem GERD (gastroesophageal reflux disease) 530.81 Active 843533445 Problem Asthma 493.90 Active 283785722 Problem Chronic airway obstruction, not elsewhere classified J44.9 Active 82139344 Problem DM w/o complication type II E11.9 Ac tive 38477367 ALLERGIES Substance Reaction Event Type Date Status Bactrim hives Drug Allergy Jul, Active ENCOUNTERS Encounter Location Date Diagnosis [id number] [facility], S [id number] Oct, DM w/o complication type II E11.9 ; 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, not elsewhere classified J44.9 and CAD (coronary artery disease) I25.10 [facility] [address] [facility] [id number] [place] [id number] Jul, DM w/o complication type II E11.9 ; 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, not elsewhere classified J44.9 and Infective urethritis N34.2 [facility] [address] [facility] [id number] [place] [id number] Jun, Syncope and collapse [address] [place] [id number] [place] [address], [place] [id number] Jun, [facility] [address] [id number] [place] [id number] May, Bronchitis J40 [facility] [place] [address] [id number] [place] [id number] May, [facility] [place] [address] [id number] [place] [id number] May, [facility] [place] [address] [id number] [place] [id number] Apr, DM w/o complication type II E11.9 [facility] [place] [address] [id number] [place] [id number] Mar, DM w/o complication type II E11.9 ; 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, not elsewhere classified J44.9 ; Dysuria R30.0 ; Tinea pedis of right foot B35.3 and Encounter for immunization Z23 [facility] [place] [address] [id number] [place] [id number] Feb, Medicare welcome exam Z00.00 [facility] [place] [address] [id number] [place] [id number] Jan, Chronic airway obstruction, not elsewher e classified J44.9 [facility] [place] [address] [id number] [place] [id number] Dec, [facility] [place] [address] [id number] [place] [id number] Dec, DM w/o complication type II E11.9 ; 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, not elsewhere classified J44.9 and Acute cystitis with hematuria N30.01 [facility] [place] [address] [id number] [place] [id number] Oct, Encounter for screening for malignant ne oplasm of colon Z12.11 [facility] [place] [address] [id number] [place] [id number] Oct, Medicare welcome exam Z00.00 [facility] [place] [address] [id number] [place] [id number] September, Medicare welcome exam Z00.00 and Encount er for immunization Z23 [facility] [place] [address] [id number] [place] [id number] September, Bronchitis J40 [facility] [place] [address] [id number] [place] [id number] September, Bronchitis J40 [facility] [place] [address] [id number] [place] [id number] September, Other and unspecified hyperlipidemia E78 .5 [facility] [place] [address] [id number] [place] [id number] Aug, DM w/o complication type II E11.9 ; 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, not elsewhere classified J44.9 and Other and unspecified hyperlipidemia E78.5 [facility] [place] [address] [id number] [place] [id number] May, DM w/o complication type II E11.9 and Ch ronic airway obstruction, not elsewhere classified J44.9 [facility] [place] [address] [facility] [id number] [place] [id number] Apr, Acute cystitis with hematuria N30.01 [facility] [place] [address] [id number] [place] [id number] Feb, DM w/o complication type II E11.9 [facility] [place] [address] [facility] [id number] [place] [id number] Feb, Chronic airway obstruction, not elsewher e classified J44.9 ; DM w/o complication type II E11.9 and Encounter for immunization Z23 [facility] [place] [address] [id number] [place] [id number] Dec, [facility] [place] [address] [id number] [place] [id number] Nov, Chronic airway obstruction, not elsewher e classified J44.9 [facility] [place] [address] [id number] [place] [id number] Oct, DM w/o complication type II E11.9 [facility] [address] [id number] [address] [address] Oct, [facility] [place] [address] [facility] [id number] [place] [id number] Aug, Chronic airway obstruction, not elsewher e classified J44.9 and DM w/o complication type II E11.9 [facility] [place] [address] [id number] [place] [id number] Aug, Chronic airway obstruction, not elsewher e classified J44.9 [facility] [place] [address] [id number] [place] [id number] Aug, DM w/o complication type II E11.9 and Ch ronic airway obstruction, not elsewhere classified J44.9 [facility] [place] [address] [id number] [place] [id number] Jul, [facility] [place] [address] [id number] [place] [id number] Jul, DM w/o complication type II E11.9 [facility] [place] [address] [id number] [place] [id number] Jun, [facility] [place] [address] [id number] [place] [id number] Jun, [facility] [place] [address] [id number] [place] [id number] Jun, Chronic airway obstruction, not elsewher e classified J44.9 ; DM w/o complication type II E11.9 and Other and unspecified hyperlipidemia E78.5 [facility] [place] [address] [id number] [place] [id number] 11 Jun, 2015 CAD (coronary artery disease) I25.10 and Dizziness R42 [facility] [place] [address] [id number] [place] [id number] 10 Jun, 2015 Bronchitis J40 [facility] [place] [address] [id number] [place] [id number] May, Hematoma T14.8 [facility] [place] [address] [id number] [place] [id number] May, [facility] [place] [address] [id number] [place] [id number] May, Bronchitis J40 [facility] [place] [address] [id number] [place] [id number] Apr, [facility]itis J40 [facility] [address] [facility] [id number] [address] [place] [address] Apr, [facility] [place] [address] [id number] [place] [id number] Mar, [facility] [address] [id number] [place] [id number] Mar, [facility] [place] [address] [id number] [place] [id number] Mar, [facility] [address] [id number] [place] [id number] Mar, [facility] [place] [address] [facility] [id number] [place] [id number] Mar, SOB (shortness of breath) R06.02 [facility] [place] [address] [facility] [id number] [place] [id number] Feb, Urinary tract infection, site not specif ied N39.0 and Hematuria, unspecified R31.9 [facility] [place] [address] [facility] [id number] [place] [id number] Feb, DM w/o complication type II E11.9 ; Enco unter for immunization Z23 and Chronic airway obstruction, not elsewhere classified J44.9 [facility] [address] [id number] [id number] Jan, [facility] [address] [id number] [id number] Jan, [facility] [place] [address] [id number] [place] [id number] Dec, [facility] [place] [address] [id number] [place] [id number] Dec, [facility] [place] [address] [id number] [place] [id number] Dec, [facility] [place] [address] [id number] [place] [id number] Dec, [facility] [place] [address] [facility] [id number] [place] [id number] Dec, Blood in the stool 578.1 [facility] [place] [address] [id number] [place] [id number] Nov, [facility] [place] [address] [id number] [place] [id number] Nov, Colon cancer screening V76.51 [facility] [place] [address] [id number] [place] [id number] Nov, Vertigo 780.4 [facility] [place] [address] [id number] [place] [id number] Nov, Routine gynecological examination V72.31 ; Pap test, as part of routine gynecological examination V76.2 ; Breast cancer screening V76.10 ; Postmenopausal V49.81 and Colon cancer screening V76.51 [facility] [place] [address] [id number] [place] [id number] Nov, [facility] [place] [address] [id number] [place] [id number] Nov, [facility] [address] [facility] [id number] [address] [place] [address] Nov, [facility] [place] [address] [facility] [id number] [place] [id number] Oct, Diabetes 250.00 ; COPD (chronic obstruct misha pulmonary disease) 496 and GERD (gastroesophageal reflux disease) 530.81 [facility] [address] [facility] [id number] [address] [place] [address] Oct, [facility] [address] [id number] [place] [id number] Oct, [facility] [place] [address] [id number] [place] [id number] Oct, [facility] [place] [address] [id number] [place] [id number] Oct, Reflux 530.81 [facility] [address] [facility] [id number] [address] [place] [address] Oct, [facility] [place] [address] [id number] [place] [id number] Oct, [facility] [place] [address] [id number] [place] [id number] Oct, [facility] [place] [address] [facility] [id number] [place] [id number] Oct, Dysuria 788.1 [facility] [place] [address] [facility] [id number] [place] [id number] Oct, Dysuria 788.1 [facility] [address] [facility] [id number] [address] [place] [address] September, [facility] [place] [address] [facility] [id number] [place] [id number] September, Diabetes 250.00 and COPD (chronic obstru ctive pulmonary disease) 496 [facility] [place] [address] [facility] [id number] [place] [id number] September, [facility] [place] [address] [facility] [id number] [place] [id number] September, [facility] [place] [id number] [facility] [facility] [address] [id number] [id number] September, [facility] [place] [address] [facility] [id number] [place] [id number] Aug, Osteoarthritis 715.90 ; Diabetes 250.00 and COPD (chronic obstructive pulmonary disease) 496 [facility] [place] [address] [facility] [id number] [place] [id number] Aug, Pure hypercholesterolemia 272.0 ; Essent ial hypertension, benign 401.1 and Loss of weight 783.21 [facility] [address] [facility] [id number] [address] [place] [address] Aug, [facility] [address] [facility] [id number] [address] [place] [phone] Aug, [facility] [address] [facility] [id number] [place] [id number] Jul, [facility] [address] [facility] [id number] [address] [place] [address] Jul, [facility] [address] [id number] [address] [place] [address], [place] [address] Jun, 2014 [facility] [address] [facility] [id number] [address] [place] [address], [place] [address] Jun, [facility] [place] [address] [id number] [place] [id number] Jun, [facility] [address] [id number] [address] [place] [address], [place] [address] May, [facility] [place] [address] [id number] [place] [id number] May, [facility] [place] [address] [id number] [place] [id number] Apr, [facility] [address] [facility] [id number] [address] [place] [address], [place] [address] Apr, [facility] [place] [address] [id number] [place] [id number] Apr, [facility] [address] [facility] [id number] [address] [place] [address], [place] [address] Apr, [facility] [place] [address] [id number] [place] [id number] Apr, [facility] [address] [facility] [id number] [address] [place] [address] Apr, [facility] [place] [address] [id number] [place] [id number] Feb, [facility] [address] [id number] [address] [place] [address] Feb, [facility] [place] [address] [id number] [place] [id number] Feb, [facility] [address] [facility] [id number] [address] [place] [address] Feb, [facility] [address] [facility] [id number] [address] [place] [address] Jan, [facility] [place] [address] [id number] [place] [id number] Jan, [facility] [address] [id number] [facility] [place] [address] Jan, [facility] [place] [address] [id number] [place] [id number] Jan, [facility] [address] [id number] [facility] [place] [address] Jan, [facility] [address] [id number] [address] [place] [address], [place] [address] Dec, [facility] [address] [id number] [address] [place] [address], [place] [address] Dec, [facility] [place] [address] [id number] [place] [id number] September, [facility] [address] [id number] [address] [place] [address], [place] [address] September, [facility] [address] [id number] [address] [place] [address], [place] [address] September, [facility] [place] [address] [id number] [place] [id number] September, [facility] [place] [address] [id number] [place] [id number] September, [facility] [address] [id number] [address] [place] [address], [place] [address] September, [facility] [place] [address] [id number] [place] [id number] Aug, [facility] [address] [id number] [facility] [place] [address] Aug, [facility] [address] [id number] [address] [place] [address], [place] [address] Jul, [facility] [place] [address] [id number] [place] [id number] Jul, [facility] [address] [id number] [address] [place] [address], [place] [address] Jul, [facility] [place] [address] [id number] [place] [id number] Jun, [facility] [place] [facility] [address] [id number] [address] [place] [address], [place] [address] Jun, [facility] [address] [id number] [address] [place] [address], [place] [address] Jun, [facility] [place] [address] [id number] [place] [id number] Jun, [facility] [place] [address] [id number] [place] [id number] May, [facility] [place] [facility] [address] [id number] [address] [place] [address], [place] [address] May, [facility] [address] [facility] [id number] [address] [place] [address], [place] [address] Apr, [facility] [place] [address] [id number] [place] [id number] Mar, [facility] [address] [id number] [address] [place] [address], [place] [address] Mar, [facility] [address] [facility] [id number] [address] [place] [address], [place] [address] Mar, [facility] [address] [facility] [id number] [address] [place] [address], [place] [address] Mar, [facility] [place] [address] [id number] [place] [id number] Mar, [facility] [place] [address] [id number] [place] [id number] Feb, [facility] [address] [id number] [address] [place] [address], [place] [address] Feb, [facility] [place] [address] [id number] [place] [id number] Feb, [facility] [address] [id number] [address] [place] [address], [place] [address] Feb, [facility] [place] [address] [id number] [place] [id number] Feb, [facility] [address] [id number] [address] [place] [address], [place] [address] Feb, [facility] [place] [address] [id number] [place] [id number] Jan, [facility] [place] [address] [id number] [place] [id number] Dec, [facility] [place] [address] [id number] [place] [id number] Nov, [facility] [place] [address] [id number] [place] [id number] Oct, [facility] [place] [address] [id number] [place] [id number] Oct, [facility] [place] [address] [id number] [place] [id number] Oct, [facility] [place] [address] [id number] [place] [id number] Oct, [facility] [place] [facility] [address] [facility] [id number] [address] [place] [address] September, [facility] [place] [address] [id number] [place] [id number] September, [facility] [place] [facility] [address] [facility] [id number] [address] [place] [address] Aug, [facility] [place] [address] [id number] [place] [id number] Aug, [facility] [place] [address] [id number] [place] [id number] Jun, [facility] [place] [address] [id number] [place] [id number] Jun, [facility] [place] [address] [id number] [place] [id number] Feb, [facility] [address] [facility] [id number] [address] [place] [address], [place] [address] Feb, [facility] [place] [address] [id number] [place] [id number] Feb, [facility] [address] [id number] [place] [id number] Dec, [facility] [address] [id number] [address] [place] [address] Dec, [facility] [address] [id number] [place] [id number] Dec, [facility] [address] [id number] [place] [id number] Aug, [facility] [address] [id number] [place] [id number] May, [facility] [address] [id number] [place] [id number] May, [facility] [address] [facility] [id number] [address] [place] [address] Apr, [facility] [address] [facility] [id number] [address] [place] [address] September, [facility] [address] [facility] [id number] [address] [place] [address] Apr, [facility] [address] [facility] [id number] [address] [place] [address] Apr, [facility] [address] [facility] [id number] [address] [place] [address] Apr, IMMUNIZATIONS No Known Immunizations SOCIAL HISTORY Never Assessed REASON FOR VISIT Diabetes follow up, burning with urination Fabrizio MCCLURE PLAN OF CARE Activity Details Follow Up 3 Months Reason:dm VITAL SIGNS Height 66 in 2017-07-17 Weight 127.6 lbs 2017-07-17 Temperature 97.4 degrees Fahrenheit 2017-07-17 Heart Rate 84 bpm 2017-07-17 Respiratory Rate 18 2017-07-17 BMI 20.59 kg/m2 2017-07-17 Blood pressure systolic 138 mmHg 2017-07-17 Blood pressure diastolic 68 mmHg 2017-07-17 MEDICATIONS Medication Instructions Dosage Frequency Start Date End Date Duration S tatus OneTouch Ultra Test Test Strips as directed Oct, Active VioletTouch Ultra Test - CHECK BLOOD SUGAR TWICE DAILY DIRECTED. Active Omeprazole 40 mg Orally Once a day 1 capsule 24h 11 Oct, 2014 Active Pravastatin Sodium 20 mg Orally Once a day 1 tablet 24h Active Albuterol Sulfate (2.5 MG/3ML) 0.083% Inhalation Three times a day 3 m l 8h Active Ventolin HFA 108 (90 Base) MCG/ACT INHALE 2 PUFF S EVERY 4 HOURS NEEDED... Active Spiriva HandiHaler 18 MCG INHALE THE CON TENTS OF ONE (1) CAPSULE ONCE DAILY... Active Meclizine HCl 25 MG Orally 3 times a day 1 tablet as needed for d izziness 8h Nov, Active Omeprazole 40 mg Orally Once a day 1 capsule 24h Active Benzonatate 200 mg Orally Three times a day 1 capsule 8h May, Not-Taking Promethazine-Codeine 6.25-10 MG/5ML Orally 3 times a day 5 m l as needed for severe cough 8h May, Not-Taking Aspirin Adult Low Dose 81 MG Orally Once a day 1 tablet 24h Active Symbicort 160-4.5 MCG/ACT INHALE 2 PUFFS BY MOUTH TWICE DAILY... . Active Accolate 20 mg Orally Twice a day 1 tablet 12h 0 day s Active Macrobid 100 mg Orally every 12 hrs 1 capsule with food 12h Jul, Jul, 7 day(s) Active Metformin HCl 500 mg Orally twice a day 2 .5 tabs in AM and 1 1/ 2 tablets in pm 12h Active RESULTS Name Result Date Reference Range A1C (IN HOUSE) 2017-07-17 A1C IN HOUSE 6.4 4.3 - 5.6 % Previous A1c 6.2 Lot [id number] Exp date 03/30 PROCEDURES Procedure Date Ordered Result Body Site PENDING SALE TO [facility] VISIT ESTABLISHED PATIENT July 17, 2017 GLYCATED HEMOGLOBIN TEST July 17, 2017 INSTRUCTIONS MEDICATIONS ADMINISTERED No Known Medications [...]
--- OUTSIDE RECORDS SUMMARY | 2019-07-19 23:19 | XMS REPORT ---
Author Author Zoie DISLA Organization [facility] Address [address] [place] [address] Care Team Providers Care Bleach Supervisor Name Role Phone ELLEN DISLA Unavailable PROBLEMS Type Condition ICD9-CM Code [id number] Code Onset Dates Condition S tatus SNOMED Code Problem Diaphragmatic hernia without mention of obstruction or gangrene 553.3 Active 15435136 Problem Unspecified senile cataract 366.10 Ac tive 06761960 Problem Essential hypertension, benign 401.1 Active 2986837 Problem Loss of weight 783.21 Active 76748 5001 Problem Other and unspecified hyperlipidemia E78.5 Active 10128074 Problem CAD (coronary artery disease) I25.10 Active 98297218 Problem GERD (gastroesophageal reflux disease) 530.81 Active 831405052 Problem Asthma 493.90 Active 150107982 Problem Chronic airway obstruction, not elsewhere classified J44.9 Active 55719076 Problem DM w/o complication type II E11.9 Ac tive 25332416 ALLERGIES No Information ENCOUNTERS Encounter Location Date Diagnosis [place] [id number] [place] [address], [place] [id number] Oct, DM w/o complication type II E11.9 ; Machine Wedger 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, not elsewhere classified J44.9 and CAD (coronary artery disease) I25.10 [place] [id number] [place] [id number] Jul, DM w/o complication type II E11.9 ; Machine Wedger 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, not elsewhere classified J44.9 and Infective urethritis N34.[address] [place] [address], [place] [id number] Jun, Syncope and collapse R55 [address] [place] [address], [place] [id number] Jun, [place] [id number] [place] [address], [place] [id number] May, Bronchitis J40 [facility] [place] [address] [id number] [place] [id number] May, [facility] [place] [address] [id number] [place] [id number] May, [facility] [place] [address] [id number] [place] [id number] Apr, DM w/o complication type II E11.9 [facility] [place] [address] [id number] [place] [id number] Mar, DM w/o complication type II E11.9 ; Machine Wedger 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, not elsewhere classified J44.9 ; Dysuria R30.0 ; Tinea pedis of right foot B35.3 and Encounter for immunization Z23 [facility] [address] [facility] [id number] [place] [id number] Feb, Medicare welcome exam Z00.00 [facility] [address] [id number] [place] [id number] Jan, Chronic airway obstruction, not elsewher e classified J44.9 [facility] [place] [address] [id number] [place] [id number] Dec, [facility] [place] [address] [id number] [place] [id number] Dec, DM w/o complication type II E11.9 ; Machine Wedger 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, not elsewhere classified J44.9 and Acute cystitis with hematuria N30.01 [facility] [place] [address] [id number] [place] [id number] Oct, Encounter for screening for malignant ne oplasm of colon Z12.11 [facility] [place] [address] [id number] [place] [id number] Oct, Medicare welcome exam Z00.00 [facility] [place] [address] [id number] [place] [id number] September, Medicare welcome exam Z00.00 and Encount er for immunization Z23 [facility] [address] [id number] [place] [id number] September, Bronchitis J40 [facility] [place] [address] [id number] [place] [id number] September, Bronchitis J40 [facility] [place] [address] [id number] [place] [id number] September, Other and unspecified hyperlipidemia E78 .5 [facility] [place] [address] [id number] [place] [id number] Aug, DM w/o complication type II E11.9 ; Machine Wedger 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, not elsewhere classified J44.9 and Other and unspecified hyperlipidemia E78.5 [facility] [place] [address] [id number] [place] [id number] May, DM w/o complication type II E11.9 and Ch ronic airway obstruction, not elsewhere classified J44.9 [facility] [place] [address] [id number] [place] [id number] Apr, Acute cystitis with hematuria N30.01 [facility] [place] [address] [id number] [place] [id number] Feb, DM w/o complication type II E11.9 [facility] [place] [address] [id number] [place] [id number] Feb, Chronic airway obstruction, not elsewher e classified J44.9 ; DM w/o complication type II E11.9 and Encounter for immunization Z23 [facility] [place] [address] [id number] [place] [id number] Dec, [facility] [place] [address] [id number] [place] [id number] Nov, Chronic airway obstruction, not elsewher e classified J44.9 [facility] [place] [address] [id number] [place] [id number] Oct, DM w/o complication type II E11.9 [facility] [address] [facility] [id number] [address] [place] [address] Oct, [facility] [place] [address] [id number] [place] [id number] Aug, Chronic airway obstruction, not elsewher e classified J44.9 and DM w/o complication type II E11.9 [facility] [place] [address] [id number] [place] [id number] Aug, Chronic airway obstruction, not elsewher e classified J44.9 [facility] [place] [address] [id number] [place] [id number] Aug, DM w/o complication type II E11.9 and Ch ronic airway obstruction, not elsewhere classified J44.9 [facility] [place] [address] [id number] [place] [id number] Jul, [facility] [place] [address] [id number] [place] [id number] Jul, DM w/o complication type II E11.9 [facility] [place] [address] [id number] [place] [id number] Jun, [facility] [place] [address] [id number] [place] [id number] Jun, [facility] [place] [address] [id number] [place] [id number] Jun, Chronic airway obstruction, not elsewher e classified J44.9 ; DM w/o complication type II E11.9 and Other and unspecified hyperlipidemia E78.5 [facility] [place] [address] [id number] [place] [id number] Jun, CAD (coronary artery disease) I25.10 and Dizziness R42 [facility] [place] [address] [id number] [place] [id number] Jun, Bronchitis J40 [facility] [place] [address] [id number] [place] [id number] May, Hematoma T14.8 [facility] [place] [address] [id number] [place] [id number] May, [facility] [place] [address] [id number] [place] [id number] May, Bronchitis J40 [facility] [place] [address] [id number] [place] [id number] Apr, Bronchitis J40 [facility] [address] [facility] [id number] [address] [place] [address] Apr, [facility] [place] [address] [facility] [id number] [place] [id number] Mar, [facility] [address] [id number] [id number] Mar, [facility] [place] [address] [facility] [id number] [place] [id number] Mar, [facility] [address] [id number] [place] [id number] Mar, [facility] [place] [address] [facility] [id number] [place] [id number] Mar, SOB (shortness of breath) R06.02 [facility] [place] [address] [facility] [id number] [place] [id number] Feb, Urinary tract infection, site not specif ied N39.0 and Hematuria, unspecified R31.9 [facility] [place] [address] [facility] [id number] [place] [id number] Feb, DM w/o complication type II E11.9 ; Enco unter for immunization Z23 and Chronic airway obstruction, not elsewhere classified J44.9 [facility] [address] [id number] [id number] Jan, [facility] [id number] [place] [id number] Jan, [facility] [place] [address] [facility] [id number] [place] [id number] Dec, [facility] [place] [address] [facility] [id number] [place] [id number] Dec, [facility] [place] [address] [facility] [id number] [place] [id number] Dec, [facility] [place] [address] [id number] [place] [id number] Dec, [facility] [place] [address] [facility] [id number] [place] [id number] Dec, Blood in the stool 578.1 [facility] [place] [address] [id number] [place] [id number] Nov, [facility] [place] [address] [id number] [place] [id number] Nov, Colon cancer screening V76.51 [facility] [place] [address] [id number] [place] [id number] Nov, Vertigo 780.4 [facility] [place] [address] [id number] [place] [id number] Nov, Routine gynecological examination V72.31 ; Pap test, as part of routine gynecological examination V76.2 ; Breast cancer screening V76.10 ; Postmenopausal V49.81 and Colon cancer screening V76.51 [facility] [place] [address] [id number] [place] [id number] Nov, [facility] [address] [id number] [place] [id number] Nov, [facility] [address] [id number] [address] [place] [address] Nov, [facility] [address] [id number] [place] [id number] Oct, Diabetes 250.00 ; COPD (chronic obstruct misha pulmonary disease) 496 and GERD (gastroesophageal reflux disease) 530.81 [facility] [address] [facility] [id number] [address] [place] [address] Oct, [facility] [address] [id number] [place] [id number] Oct, [facility] [place] [address] [id number] [place] [id number] Oct, [facility] [place] [address] [id number] [place] [id number] Oct, Reflux 530.81 [facility] [address] [facility] [id number] [address] [place] [address] Oct, [facility] [address] [id number] [place] [id number] Oct, [facility] [address] [id number] [place] [id number] Oct, [facility] [place] [address] [id number] [place] [id number] Oct, Dysuria 788.1 [facility] [place] [address] [id number] [place] [id number] Oct, Dysuria 788.1 [facility] [address] [facility] [id number] [address] [place] [address] September, [facility] [place] [address] [facility] [id number] [place] [id number] September, Diabetes 250.00 and COPD (chronic obstru ctive pulmonary disease) 496 [facility] [place] [address] [facility] [id number] [place] [id number] September, [facility] [place] [address] [facility] [id number] [place] [id number] September, [facility] [address] [id number] [place] [id number] September, [facility] [place] [address] [facility] [id number] [place] [id number] Aug, Osteoarthritis 715.90 ; Diabetes 250.00 and COPD (chronic obstructive pulmonary disease) 496 [facility] [place] [address] [facility] [id number] [place] [id number] Aug, Pure hypercholesterolemia 272.0 ; Essent ial hypertension, benign 401.1 and Loss of weight 783.21 [facility] [address] [facility] [id number] [address] [place] [address] Aug, [facility] [address] [facility] [id number] [address] [place] [address] Aug, [facility] [place] [address] [facility] [id number] [place] [id number] Jul, [facility] [address] [facility] [id number] [address] [place] [address] Jul, [facility] [address] [id number] [address] [place] [address] Jun, [facility] [address] [id number] [address] [place] [address], [place] [address] Jun, [facility] [place] [address] [id number] [place] [id number] Jun, [facility] [address] [id number] [address] [place] [address], [place] [address] May, [facility] [place] [address] [id number] [place] [id number] May, [facility] [place] [address] [id number] [place] [id number] Apr, [facility] [address] [id number] [address] [place] [address], [place] [address] Apr, [facility] [place] [address] [id number] [place] [id number] Apr, [facility] [address] [id number] [address] [place] [address] Apr, [facility] [place] [address] [id number] [place] [id number] Apr, [facility] [address] [id number] [address] [place] [address] Apr, [facility] [place] [address] [id number] [place] [id number] Feb, [facility] [address] [id number] [address] [place] [address] Feb, [facility] [place] [address] [id number] [place] [id number] Feb, [facility] [address] [id number] [address] [place] [address] Feb, [facility] [address] [facility] [id number] [address] [place] [phone] Jan, [facility] [place] [address] [id number] [place] [id number] Jan, [facility] [address] [id number] [facility] [place] [address] Jan, [facility] [place] [address] [id number] [place] [id number] Jan, [facility] [address] [id number] [facility] [place] [address] Jan, [facility] [address] [id number] [address] [place] [address], [place] [address] Dec, [facility] [address] [id number] [address] [place] [address], [place] [address] Dec, [facility] [place] [address] [id number] [place] [id number] September, [facility] [address] [id number] [address] [place] [address], [place] [address] September, [facility] [address] [id number] [address] [place] [address], [place] [address] September, [facility] [place] [address] [id number] [place] [id number] September, [facility] [place] [address] [id number] [place] [id number] September, [facility] [address] [id number] [address] [place] [address], [place] [address] September, [facility] [place] [address] [id number] [place] [id number] Aug, [facility] [address] [id number] [address] [place] [address], [place] [address] Aug, [facility] [address] [id number] [address] [place] [address], [place] [address] Jul, [facility] [place] [address] [id number] [place] [id number] Jul, [facility] [address] [id number] [address] [place] [address], [place] [address] Jul, [facility] [place] [address] [id number] [place] [id number] Jun, [facility] [address] [id number] [address] [place] [address], [place] [address] Jun, [facility] [address] [id number] [address] [place] [phone] Jun, [facility] [place] [address] [id number] [place] [id number] Jun, [facility] [place] [address] [id number] [place] [id number] May, [facility] [address] [id number] [address] [place] [address], [place] [address] May, [facility] [address] [id number] [address] [place] [address] Apr, [facility] [place] [address] [id number] [place] [id number] Mar, [facility] [address] [id number] [address] [place] [address] Mar, [facility] [address] [facility] [id number] [address] [place] [address], [place] [address] Mar, [facility] [address] [facility] [id number] [address] [place] [address] Mar, [facility] [place] [address] [id number] [place] [id number] Mar, [facility] [place] [address] [id number] [place] [id number] Feb, [facility] [address] [id number] [address] [place] [address], [place] [address] Feb, [facility] [place] [address] [id number] [place] [id number] Feb, [facility] [address] [id number] [address] [place] [address], [place] [address] Feb, [facility] [place] [address] [id number] [place] [id number] Feb, [facility] [address] [id number] [address] [place] [address] Feb, [facility] [place] [address] [id number] [place] [id number] Jan, [facility] [place] [address] [id number] [place] [id number] Dec, [facility] [place] [address] [id number] [place] [id number] Nov, [facility] [place] [address] [id number] [place] [id number] Oct, [facility] [place] [address] [id number] [place] [id number] Oct, [facility] [place] [address] [id number] [place] [id number] Oct, [facility] [place] [address] [id number] [place] [id number] Oct, [facility] [address] [id number] [address] [place] [address] September, [facility] [place] [address] [id number] [place] [id number] September, [facility] [address] [id number] [address] [place] [address] Aug, [facility] [place] [address] [id number] [place] [id number] Aug, [facility] [place] [address] [id number] [place] [id number] Jun, [facility] [place] [address] [id number] [place] [id number] Jun, [facility] [place] [address] [id number] [place] [id number] Feb, [facility] [address] [id number] [address] [place] [address] Feb, [facility] [place] [address] [id number] [place] [id number] Feb, [facility] [place] [address] [id number] [place] [id number] Dec, [facility] [address] [facility] [id number] [address] [place] [address] Dec, [facility] [address] [id number] [place] [id number] Dec, [facility] [address] [id number] [place] [id number] Aug, [facility] [address] [id number] [place] [id number] May, [facility] [address] [id number] [place] [id number] May, [facility] [address] [facility] [id number] [address] [place] [address] Apr, [facility] [address] [id number] [address] [place] [address] September, [facility] [address] [id number] [address] [place] [address] Apr, [facility] [address] [facility] [id number] [address] [place] [address] Apr, [facility] [address] [id number] [address] [place] [address] Apr, IMMUNIZATIONS No Known Immunizations SOCIAL HISTORY Never Assessed REASON FOR VISIT phone call PLAN OF CARE VITAL SIGNS MEDICATIONS No [...]
--- OUTSIDE RECORDS SUMMARY | 2019-07-19 23:20 | XMS REPORT ---
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 Name Role Phone ELLEN DISLA Unavailable PROBLEMS Type Condition ICD9-CM Code ICW52-FM Code Onset Dates Condition S tatus SNOMED Code Problem Diaphragmatic hernia without mention of obstruction or gangrene 553.3 Active 98238857 Problem Unspecified senile cataract 366.10 Ac tive 56094409 Problem Essential hypertension, benign 401.1 Active 9270551 Problem Loss of weight 783.21 Active 62127 5001 Problem Other and unspecified hyperlipidemia E78.5 Active 70198078 Problem CAD (coronary artery disease) I25.10 Active 95797146 Problem GERD (gastroesophageal reflux disease) 530.81 Active 513572776 Problem Asthma 493.90 Active 822006113 Problem Chronic airway obstruction, not elsewhere classified J44.9 Active 04167972 Problem DM w/o complication type II E11.9 Ac tive 69566312 ALLERGIES No Information ENCOUNTERS Encounter Location Date Diagnosis [place] [id number] [place] [address], [place] [id number] Jul, DM w/o complication type II E11.9 ; Enamel Drier 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, not elsewhere classified J44.9 and Infective urethritis N34.2 [facility] [id number] [place] [address], [place] [id number] Jun, Syncope and collapse R55 [facility] [id number] [place] [address], [place] [id number] Jun, [facility] [address] [facility] [id number] [place] [id number] May, Bronchitis J40 [facility] [address] [facility] [id number] [place] [id number] May, [facility] [id number] [place] [address], [place] [id number] May, [facility] [place] [address] [id number] [place] [id number] Apr, DM w/o complication type II E11.9 [facility] [place] [address] [id number] [place] [id number] Mar, DM w/o complication type II E11.9 ; Enamel Drier 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, not elsewhere classified J44.9 ; Dysuria R30.0 ; Tinea pedis of right foot B35.3 and Encounter for immunization Z23 [facility] [place] [address] [id number] [place] [id number] Feb, Medicare welcome exam Z00.00 [facility] [place] [address] [id number] [place] [id number] Jan, Chronic airway obstruction, not elsewher e classified J44.9 [facility] [place] [address] [id number] [place] [id number] Dec, [facility] [place] [address] [id number] [place] [id number] Dec, DM w/o complication type II E11.9 ; Enamel Drier 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, not elsewhere classified J44.9 and Acute cystitis with hematuria N30.01 [facility] [place] [address] [id number] [place] [id number] Oct, Encounter for screening for malignant ne oplasm of colon Z12.11 [facility] [place] [address] [id number] [place] [id number] Oct, Medicare welcome exam Z00.00 [facility] [place] [address] [id number] [place] [id number] September, Medicare welcome exam Z00.00 and Encount er for immunization Z23 [facility] [place] [address] [id number] [place] [id number] September, Bronchitis J40 [facility] [place] [address] [id number] [place] [id number] September, Bronchitis J40 [facility] [place] [address] [id number] [place] [id number] September, Other and unspecified hyperlipidemia E78 .5 [facility] [place] [address] [id number] [place] [id number] Aug, DM w/o complication type II E11.9 ; Enamel Drier 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, not elsewhere classified J44.9 and Other and unspecified hyperlipidemia E78.5 [facility] [place] [address] [id number] [place] [id number] May, DM w/o complication type II E11.9 and Ch ronic airway obstruction, not elsewhere classified J44.9 [facility] [place] [address] [id number] [place] [id number] Apr, Acute cystitis with hematuria N30.01 [facility] [place] [address] [id number] [place] [id number] Feb, DM w/o complication type II E11.9 [facility] [place] [address] [id number] [place] [id number] Feb, Chronic airway obstruction, not elsewher e classified J44.9 ; DM w/o complication type II E11.9 and Encounter for immunization Z23 [facility] [place] [address] [id number] [place] [id number] Dec, [facility] [place] [address] [id number] [place] [id number] Nov, Chronic airway obstruction, not elsewher e classified J44.9 [facility] [place] [address] [id number] [place] [id number] Oct, DM w/o complication type II E11.9 [facility] [address] [facility] [id number] [address] [place] [address] Oct, [facility] [place] [address] [id number] [place] [id number] Aug, Chronic airway obstruction, not elsewher e classified J44.9 and DM w/o complication type II E11.9 [facility] [place] [address] [id number] [place] [id number] Aug, Chronic airway obstruction, not elsewher e classified J44.9 [facility] [place] [address] [id number] [place] [id number] Aug, DM w/o complication type II E11.9 and Ch ronic airway obstruction, not elsewhere classified J44.9 [facility] [place] [address] [id number] [place] [id number] Jul, [facility] [place] [address] [id number] [place] [id number] Jul, DM w/o complication type II E11.9 [facility] [place] [address] [id number] [place] [id number] Jun, [facility] [place] [address] [id number] [place] [id number] Jun, [facility] [place] [address] [id number] [place] [id number] Jun, Chronic airway obstruction, not elsewher e classified J44.9 ; DM w/o complication type II E11.9 and Other and unspecified hyperlipidemia E78.5 [facility] [place] [address] [id number] [place] [id number] Jun, CAD (coronary artery disease) I25.10 and Dizziness R42 [facility] [place] [address] [id number] [place] [id number] Jun, Bronchitis J40 [facility] [place] [address] [id number] [place] [id number] May, Hematoma T14.8 [facility] [place] [address] [id number] [place] [id number] May, [facility] [place] [address] [id number] [place] [id number] May, Bronchitis J40 [facility] [place] [address] [id number] [place] [id number] Apr, Bronchitis J40 [facility] [address] [facility] [id number] [address] [place] [address] Apr, [facility] [place] [address] [id number] [place] [id number] Mar, [facility] [address] [facility] [facility] [address] [id number] [id number] Mar, [facility] [place] [address] [facility] [id number] [place] [id number] Mar, [facility] [address] [id number] [id number] Mar, [facility] [place] [address] [id number] [place] [id number] Mar, SOB (shortness of breath) R06.02 [facility] [place] [address] [id number] [place] [id number] Feb, Urinary tract infection, site not specif ied N39.0 and Hematuria, unspecified R31.9 [facility] [place] [address] [facility] [id number] [place] [id number] Feb, DM w/o complication type II E11.9 ; Enco unter for immunization Z23 and Chronic airway obstruction, not elsewhere classified J44.9 [place] [id number] [id number] Jan, [facility] [id number] [place] [address] [id number] Jan, [facility] [place] [address] [facility] [id number] [place] [id number] Dec, [facility] [place] [address] [id number] [place] [id number] Dec, [facility] [place] [address] [id number] [place] [id number] Dec, [facility] [place] [address] [id number] [place] [id number] Dec, [facility] [place] [address] [id number] [place] [id number] Dec, Blood in the stool 578.1 [facility] [place] [address] [id number] [place] [id number] Nov, [facility] [place] [address] [id number] [place] [id number] Nov, Colon cancer screening V76.51 [facility] [place] [address] [id number] [place] [id number] Nov, Vertigo 780.4 [facility] [place] [address] [id number] [place] [id number] Nov, Routine gynecological examination V72.31 ; Pap test, as part of routine gynecological examination V76.2 ; Breast cancer screening V76.10 ; Postmenopausal V49.81 and Colon cancer screening V76.51 [facility] [place] [address] [id number] [place] [id number] Nov, [facility] [place] [address] [id number] [place] [id number] Nov, [facility] [address] [id number] [place] [address] Nov, [facility] [address] [id number] [place] [id number] Oct, Diabetes 250.00 ; COPD (chronic obstruct misha pulmonary disease) 496 and GERD (gastroesophageal reflux disease) 530.81 [facility] [address] [facility] [id number] [address] [place] [address] Oct, [facility] [address] [id number] [place] [id number] Oct, [facility] [place] [address] [id number] [place] [id number] Oct, [facility] [place] [address] [id number] [place] [id number] Oct, Reflux 530.81 [facility] [address] [facility] [id number] [address] [place] [address] Oct, [facility] [place] [address] [id number] [place] [id number] Oct, [facility] [place] [address] [id number] [place] [id number] Oct, [facility] [place] [address] [id number] [place] [id number] Oct, Dysuria 788.1 [facility] [place] [address] [facility] [id number] [place] [id number] Oct, Dysuria 788.1 [facility] [address] [facility] [id number] [address] [place] [address] September, [facility] [place] [address] [id number] [place] [id number] September, Diabetes 250.00 and COPD (chronic obstru ctive pulmonary disease) 496 [facility] [place] [address] [id number] [place] [id number] September, [facility] [place] [address] [id number] [place] [id number] September, [facility] [place] [id number] [facility] [id number][place] [id number] September, [facility] [place] [address] [facility] [id number] [place] [id number] Aug, Osteoarthritis 715.90 ; Diabetes 250.00 and COPD (chronic obstructive pulmonary disease) 496 [facility] [place] [address] [facility] [id number] [place] [id number] Aug, Pure hypercholesterolemia 272.0 ; Essent ial hypertension, benign 401.1 and Loss of weight 783.21 [facility] [address] [facility] [id number] [address] [place] [phone] Aug, [facility] [address] [facility] [id number] [address] [place] [address] Aug, [facility] [address] [facility] [id number] [place] [id number] Jul, [facility] [address] [facility] [id number] [address] [place] [phone] Jul, [facility] [address] [id number] [address] [place] [phone] Jun, [facility] [address] [facility] [id number] [address] [place] [address] Jun, [facility] [address] [facility] [id number] [place] [id number] Jun, [facility] [address] [id number] [facility] [place] [address] May, [facility] [place] [address] [id number] [place] [id number] May, [facility] [place] [address] [id number] [place] [id number] Apr, [facility] [address] [id number] [address] [place] [address], [place] [address] Apr, [facility] [place] [address] [id number] [place] [id number] Apr, [facility] [address] [id number] [address] [place] [address], [place] [address] Apr, [facility] [place] [address] [id number] [place] [id number] Apr, [facility] [address] [facility] [id number] [address] [place] [address], [place] [address] Apr, [facility] [place] [address] [id number] [place] [id number] Feb, [facility] [address] [facility] [id number] [address] [place] [address], [place] [address] Feb, [facility] [place] [address] [id number] [place] [id number] Feb, [facility] [address] [facility] [id number] [address] [place] [address], [place] [address] Feb, [facility] [address] [id number] [address] [place] [address], [place] [address] Jan, [facility] [place] [address] [id number] [place] [id number] Jan, [facility] [address] [id number] [address] [place] [address], [place] [address] Jan, [facility] [place] [address] [id number] [place] [id number] Jan, [facility] [address] [id number] [address] [place] [address], [place] [address] Jan, [facility] [address] [id number] [address] [place] [address], [place] [address] Dec, [facility] [address] [id number] [address] [place] [address], [place] [address] Dec, [facility] [place] [address] [id number] [place] [id number] September, [facility] [address] [id number] [address] [place] [address], [place] [address] September, [facility] [address] [id number] [address] [place] [address], [place] [address] September, [facility] [place] [address] [id number] [place] [id number] September, [facility] [place] [address] [id number] [place] [id number] September, [facility] [address] [id number] [address] [place] [address], [place] [address] September, [facility] [place] [address] [id number] [place] [id number] Aug, [facility] [address] [id number] [address] [place] [address], [place] [address] Aug, [facility] [address] [id number] [address] [place] [address], [place] [address] Jul, [facility] [place] [address] [id number] [place] [id number] Jul, [facility] [address] [id number] [address] [place] [address], [place] [address] Jul, [facility] [place] [address] [id number] [place] [id number] Jun, [facility] [address] [id number] [address] [place] [address], [place] [address] Jun, [facility] [address] [id number] [address] [place] [address], [place] [address] Jun, [facility] [place] [address] [id number] [place] [id number] Jun, [facility] [place] [address] [id number] [place] [id number] May, [facility] [address] [facility] [id number] [address] [place] [address], [place] [address] May, [facility] [address] [id number] [address] [place] [address] Apr, [facility] [place] [address] [id number] [place] [id number] Mar, [facility] [address] [id number] [address] [place] [address], [place] [address] Mar, [facility] [address] [facility] [id number] [address] [place] [address], [place] [address] Mar, [facility] [address] [facility] [id number] [address] [place] [address] Mar, [facility] [place] [address] [id number] [place] [id number] Mar, [facility] [place] [address] [id number] [place] [id number] Feb, [facility] [address] [id number] [address] [place] [address], [place] [address] Feb, [facility] [place] [address] [id number] [place] [id number] Feb, [facility] [address] [id number] [address] [place] [address], [place] [address] Feb, [facility] [place] [address] [id number] [place] [id number] Feb, [facility] [address] [id number] [address] [place] [address], [place] [address] Feb, [facility] [place] [address] [id number] [place] [id number] Jan, [facility] [place] [address] [id number] [place] [id number] Dec, [facility] [place] [address] [id number] [place] [id number] Nov, [facility] [place] [address] [id number] [place] [id number] Oct, [facility] [place] [address] [id number] [place] [id number] Oct, [facility] [place] [address] [id number] [place] [id number] Oct, [facility] [place] [address] [id number] [place] [id number] Oct, [facility] [address] [facility] [id number] [address] [place] [address] September, [facility] [place] [address] [id number] [place] [id number] September, [facility] [address] [facility] [id number] [address] [place] [address] Aug, [facility] [place] [address] [id number] [place] [id number] Aug, [facility] [place] [address] [id number] [place] [id number] Jun, [facility] [place] [address] [id number] [place] [id number] Jun, [facility] [place] [address] [id number] [place] [id number] Feb, [facility] [address] [facility] [id number] [address] [place] [address] Feb, [facility] [place] [address] [id number] [place] [id number] Feb, [facility] [place] [address] [id number] [place] [id number] Dec, [facility] [address] [facility] [id number] [address] [place] [address] Dec, [facility] [place] [address] [id number] [place] [id number] Dec, [facility] [address] [id number] [place] [id number] Aug, [facility] [address] [id number] [place] [id number] May, [facility] [address] [id number] [place] [id number] May, [facility] [address] [facility] [id number] [address] [place] [address] Apr, [facility] [address] [facility] [id number] [address] [place] [phone] September, [facility] [address] [facility] [id number] [address] [place] [phone] Apr, [facility] [address] [id number] [address] [place] [phone] Apr, [facility] [address] [id number] [address] [place] [address] Apr, IMMUNIZATIONS No Known Immunizations SOCIAL HISTORY Never Assessed REASON FOR VISIT Lab [facility] PLAN OF CARE VITAL SIGNS MEDICATIONS No Known Medications RESULTS No Results PROCEDURES Procedure Date Ordered Result Body Site LAB NOT BILLED BY [facility] Feb 12, 2017 VENDAIJA, ROUTINE* Feb 12, 2017 INSTRUCTIONS MEDICATIONS ADMINISTERED No Known Medications [...]
--- OUTSIDE RECORDS SUMMARY | 2019-07-19 23:20 | XMS REPORT ---
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 Role Phone ELLEN DISLA Unavailable PROBLEMS Type Condition ICD9-CM Code XYK08-GE Code Onset Dates Condition S tatus SNOMED Code Problem Diaphragmatic hernia without mention of obstruction or gangrene 553.3 Active 41099334 Problem Unspecified senile cataract 366.10 Ac tive 48235853 Problem Essential hypertension, benign 401.1 Active 5915840 Problem Loss of weight 783.21 Active 97327 5001 Problem Other and unspecified hyperlipidemia E78.5 Active 17386468 Problem CAD (coronary artery disease) I25.10 Active 06854454 Problem GERD (gastroesophageal reflux disease) 530.81 Active 740454852 Problem Asthma 493.90 Active 644361185 Problem Chronic airway obstruction, not elsewhere classified J44.9 Active 65002911 Problem DM w/o complication type II E11.9 Ac tive 41304060 ALLERGIES No Information ENCOUNTERS Encounter Location Date Diagnosis [place] [id number] [place] [address], [place] [id number] Jul, DM w/o complication type II E11.9 ; Heart Surgeon 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, not elsewhere classified J44.9 and Infective urethritis N34.2 [facility] [id number] [place] [address], [place] [id number] Jun, Syncope and collapse R55 [facility] [id number] [place] [address], [place] [id number] Jun, [facility] [address] [facility] [id number] [place] [id number] May, Bronchitis J40 [facility] [address] [facility] [id number] [place] [id number] May, [facility] [id number] [place] [address], [place] [id number] May, [facility] [place] [address] [id number] [place] [id number] Apr, DM w/o complication type II E11.9 [facility] [place] [address] [id number] [place] [id number] Mar, DM w/o complication type II E11.9 ; Heart Surgeon 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, not elsewhere classified J44.9 ; Dysuria R30.0 ; Tinea pedis of right foot B35.3 and Encounter for immunization Z23 [facility] [place] [address] [id number] [place] [id number] Feb, Medicare welcome exam Z00.00 [facility] [place] [address] [id number] [place] [id number] Jan, Chronic airway obstruction, not elsewher e classified J44.9 [facility] [place] [address] [id number] [place] [id number] Dec, [facility] [place] [address] [id number] [place] [id number] Dec, DM w/o complication type II E11.9 ; Heart Surgeon 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, not elsewhere classified J44.9 and Acute cystitis with hematuria N30.01 [facility] [place] [address] [id number] [place] [id number] Oct, Encounter for screening for malignant ne oplasm of colon Z12.11 [facility] [place] [address] [id number] [place] [id number] Oct, Medicare welcome exam Z00.00 [facility] [place] [address] [id number] [place] [id number] September, Medicare welcome exam Z00.00 and Encount er for immunization Z23 [facility] [place] [address] [id number] [place] [id number] September, Bronchitis J40 [facility] [place] [address] [id number] [place] [id number] September, Bronchitis J40 [facility] [place] [address] [id number] [place] [id number] September, Other and unspecified hyperlipidemia E78 .5 [facility] [place] [address] [id number] [place] [id number] Aug, DM w/o complication type II E11.9 ; Heart Surgeon 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, not elsewhere classified J44.9 and Other and unspecified hyperlipidemia E78.5 [facility] [place] [address] [id number] [place] [id number] May, DM w/o complication type II E11.9 and Ch ronic airway obstruction, not elsewhere classified J44.9 [facility] [place] [address] [id number] [place] [id number] Apr, Acute cystitis with hematuria N30.01 [facility] [place] [address] [id number] [place] [id number] Feb, DM w/o complication type II E11.9 [facility] [place] [address] [id number] [place] [id number] Feb, Chronic airway obstruction, not elsewher e classified J44.9 ; DM w/o complication type II E11.9 and Encounter for immunization Z23 [facility] [place] [address] [id number] [place] [id number] Dec, [facility] [place] [address] [id number] [place] [id number] Nov, Chronic airway obstruction, not elsewher e classified J44.9 [facility] [place] [address] [id number] [place] [id number] Oct, DM w/o complication type II E11.9 [facility] [address] [facility] [id number] [address] [place] [address] Oct, [facility] [place] [address] [id number] [place] [id number] Aug, Chronic airway obstruction, not elsewher e classified J44.9 and DM w/o complication type II E11.9 [facility] [place] [address] [id number] [place] [id number] Aug, Chronic airway obstruction, not elsewher e classified J44.9 [facility] [place] [address] [id number] [place] [id number] Aug, DM w/o complication type II E11.9 and Ch ronic airway obstruction, not elsewhere classified J44.9 [facility] [place] [address] [id number] [place] [id number] Jul, [facility] [place] [address] [id number] [place] [id number] Jul, DM w/o complication type II E11.9 [facility] [place] [address] [id number] [place] [id number] Jun, [facility] [place] [address] [id number] [place] [id number] Jun, [facility] [place] [address] [id number] [place] [id number] Jun, Chronic airway obstruction, not elsewher e classified J44.9 ; DM w/o complication type II E11.9 and Other and unspecified hyperlipidemia E78.5 [facility] [place] [address] [id number] [place] [id number] Jun, CAD (coronary artery disease) I25.10 and Dizziness R42 [facility] [place] [address] [id number] [place] [id number] Jun, Bronchitis J40 [facility] [place] [address] [id number] [place] [id number] May, Hematoma T14.8 [facility] [place] [address] [id number] [place] [id number] May, [facility] [place] [address] [id number] [place] [id number] May, Bronchitis J40 [facility] [place] [address] [id number] [place] [id number] Apr, Bronchitis J40 [facility] [address] [facility] [id number] [address] [place] [address] Apr, [facility] [place] [address] [id number] [place] [id number] Mar, [facility] [address] [facility] [address] [id number] [place] [id number] Mar, [facility] [place] [address] [id number] [place] [id number] Mar, [facility] [address] [facility] [address] [id number] [place] [id number] Mar, [facility] [place] [address] [id number] [place] [id number] Mar, SOB (shortness of breath) R06.02 [facility] [place] [address] [id number] [place] [id number] Feb, Urinary tract infection, site not specif ied N39.0 and Hematuria, unspecified R31.9 [facility] [place] [address] [facility] [id number] [place] [id number] Feb, Encounter for immunization Z23 ; DM w/o complication type II E11.9 and Chronic airway obstruction, not elsewhere classified J44.9 [facility] [id number] [id number] Jan, [facility] [id number] [place] [address] [id number] Jan, [facility] [place] [address] [facility] [id number] [place] [id number] Dec, [facility] [place] [address] [id number] [place] [id number] Dec, [facility] [place] [address] [id number] [place] [id number] Dec, [facility] [place] [address] [id number] [place] [id number] Dec, [facility] [place] [address] [id number] [place] [id number] Dec, Blood in the stool 578.1 [facility] [place] [address] [id number] [place] [id number] Nov, [facility] [place] [address] [id number] [place] [id number] Nov, Colon cancer screening V76.51 [facility] [place] [address] [id number] [place] [id number] Nov, Vertigo 780.4 [facility] [place] [address] [id number] [place] [id number] Nov, Routine gynecological examination V72.31 ; Pap test, as part of routine gynecological examination V76.2 ; Breast cancer screening V76.10 ; Postmenopausal V49.81 and Colon cancer screening V76.51 [facility] [place] [address] [id number] [place] [id number] Nov, [facility] [place] [address] [id number] [place] [id number] Nov, [facility] [address] [facility] [id number] [address] [place] [address] Nov, [facility] [address] [id number] [place] [id number] Oct, Diabetes 250.00 ; COPD (chronic obstruct misha pulmonary disease) 496 and GERD (gastroesophageal reflux disease) 530.81 [facility] [address] [facility] [id number] [address] [place] [address] Oct, [facility] [address] [facility] [id number] [place] [id number] Oct, [facility] [address] [id number] [place] [id number] Oct, [facility] [place] [address] [id number] [place] [id number] Oct, Reflux 530.81 [facility] [address] [facility] [id number] [address] [place] [address] Oct, [facility] [place] [address] [id number] [place] [id number] Oct, [facility] [place] [address] [id number] [place] [id number] Oct, [facility] [address] [id number] [place] [id number] Oct, Dysuria 788.1 [facility] [place] [address] [facility] [id number] [place] [id number] Oct, Dysuria 788.1 [facility] [address] [facility] [id number] [address] [place] [address] September, [facility] [place] [address] [id number] [place] [id number] September, Diabetes 250.00 and COPD (chronic obstru ctive pulmonary disease) 496 [facility] [place] [address] [facility] [id number] [place] [id number] September, [facility] [place] [address] [id number] [place] [id number] September, [facility] [address] [id number] [place] [id number] September, [facility] [place] [address] [facility] [id number] [place] [id number] Aug, Osteoarthritis 715.90 ; Diabetes 250.00 and COPD (chronic obstructive pulmonary disease) 496 [facility] [place] [address] [facility] [id number] [place] [id number] Aug, Pure hypercholesterolemia 272.0 ; Essent ial hypertension, benign 401.1 and Loss of weight 783.21 [facility] [id number] [place] [address] Aug, [facility] [address] [id number] [place] [address] Aug, [facility] [place] [address] [facility] [id number] [place] [id number] Jul, [facility] [id number] [place] [address] Jul, [facility] [id number] [place] [address] Jun, [facility] [address] [id number] [address] [place] [address] Jun, [facility] [address] [facility] [id number] [place] [id number] Jun, [facility] [address] [id number] [facility] [address] May, [facility] [place] [address] [id number] [place] [id number] May, [facility] [place] [address] [id number] [place] [id number] Apr, [facility] [address] [id number] [address] [place] [address], [place] [address] Apr, [facility] [place] [address] [id number] [place] [id number] Apr, [facility] [address] [id number] [address] [place] [address], [place] [address] Apr, [facility] [place] [address] [id number] [place] [id number] Apr, [facility] [address] [id number] [address] [place] [address], [place] [address] Apr, [facility] [place] [address] [id number] [place] [id number] Feb, [facility] [address] [id number] [address] [place] [address], [place] [address] Feb, [facility] [place] [address] [id number] [place] [id number] Feb, [facility] [address] [id number] [address] [place] [address], [place] [address] Feb, [facility] [address] [id number] [address] [place] [address], [place] [address] Jan, [facility] [place] [address] [id number] [place] [id number] Jan, [facility] [address] [id number] [address] [place] [address], [place] [address] Jan, [facility] [place] [address] [id number] [place] [id number] Jan, [facility] [address] [id number] [address] [place] [address], [place] [address] Jan, [facility] [address] [id number] [address] [place] [address], [place] [address] Dec, [facility] [address] [id number] [address] [place] [address], [place] [address] Dec, [facility] [place] [address] [id number] [place] [id number] September, [facility] [address] [id number] [address] [place] [address], [place] [address] September, [facility] [address] [id number] [address] [place] [address], [place] [address] September, [facility] [place] [address] [id number] [place] [id number] September, [facility] [address] [id number] [place] [id number] September, [facility] [address] [id number] [address] [place] [address], [place] [address] September, [facility] [place] [address] [id number] [place] [id number] Aug, [facility] [address] [id number] [address] [place] [address], [place] [address] Aug, [facility] [address] [id number] [address] [place] [address], [place] [address] Jul, [facility] [place] [address] [id number] [place] [id number] Jul, [facility] [address] [id number] [address] [place] [address], [place] [address] Jul, [facility] [place] [address] [id number] [place] [id number] Jun, [facility] [address] [id number] [address] [place] [address], [place] [address] Jun, [facility] [address] [id number] [address] [place] [address], [place] [address] Jun, [facility] [place] [address] [id number] [place] [id number] Jun, [facility] [place] [address] [id number] [place] [id number] May, [facility] [address] [id number] [address] [place] [address], [place] [address] May, [facility] [address] [id number] [address] [place] [address] Apr, [facility] [place] [address] [id number] [place] [id number] Mar, [facility] [address] [id number] [address] [place] [address] Mar, [facility] [address] [facility] [id number] [address] [place] [address] Mar, [facility] [address] [id number] [address] [place] [address] Mar, [facility] [place] [address] [id number] [place] [id number] Mar, [facility] [place] [address] [id number] [place] [id number] Feb, [facility] [address] [id number] [address] [place] [address] Feb, [facility] [place] [address] [id number] [place] [id number] Feb, [facility] [address] [id number] [address] [place] [address], [place] [address] Feb, [facility] [place] [address] [id number] [place] [id number] Feb, [facility] [address] [id number] [address] [place] [address], [place] [address] Feb, [facility] [place] [address] [id number] [place] [id number] Jan, [facility] [place] [address] [id number] [place] [id number] Dec, [facility] [place] [address] [id number] [place] [id number] Nov, [facility] [place] [address] [id number] [place] [id number] Oct, [facility] [place] [address] [id number] [place] [id number] Oct, [facility] [place] [address] [id number] [place] [id number] Oct, [facility] [place] [address] [id number] [place] [id number] Oct, [facility] [address] [facility] [id number] [address] [place] [address] September, [facility] [place] [address] [id number] [place] [id number] September, [facility] [address] [facility] [id number] [address] [place] [address] Aug, [facility] [place] [address] [id number] [place] [id number] Aug, [facility] [place] [address] [id number] [place] [id number] Jun, [facility] [place] [address] [id number] [place] [id number] Jun, [facility] [place] [address] [id number] [place] [id number] Feb, [facility] [address] [facility] [id number] [address] [place] [address] Feb, [facility] [place] [address] [id number] [place] [id number] Feb, [facility] [place] [address] [id number] [place] [id number] Dec, [facility] [address] [facility] [id number] [address] [place] [address] Dec, [facility] [place] [address] [id number] [place] [id number] Dec, [facility] [address] [id number] [place] [id number] Aug, [facility] [address] [id number] [place] [id number] May, [facility] [address] [id number] [place] [id number] May, [facility] [address] [facility] [id number] [address] [place] [address] Apr, [facility] [address] [facility] [id number] [address] [place] [address] September, [facility] [address] [facility] [id number] [address] [place] [address] Apr, [facility] [address] [facility] [id number] [address] [place] [address] Apr, [facility] [address] [facility] [id number] [address] [place] [address] Apr, IMMUNIZATIONS No Known Immunizations SOCIAL HISTORY Never Assessed REASON FOR VISIT med refill PLAN OF CARE VITAL SIGNS MEDICATIONS Medication Instructions Dosage Frequency Start Date End Date Duration S tatus Metformin HCl 500 mg Orally twice a day 2 .5 tabs in AM and 1 1/ 2 tablets in pm 12h 0 days Active RESULTS No Results PROCEDURES No Known [...]
--- OUTSIDE RECORDS SUMMARY | 2019-07-19 23:20 | XMS REPORT ---
Author Author Zoie DISLA Organization [facility] Address [address] [place] [address] Care Team Providers Care Learning Developer Name Role Phone ELLEN DISLA Unavailable PROBLEMS Type Condition ICD9-CM Code [id number] Code Onset Dates Condition S tatus SNOMED Code Problem Diaphragmatic hernia without mention of obstruction or gangrene 553.3 Active 50515485 Problem Unspecified senile cataract 366.10 Ac tive 30139557 Problem Essential hypertension, benign 401.1 Active 0713723 Problem Loss of weight 783.21 Active 92514 5001 Problem Other and unspecified hyperlipidemia E78.5 Active 17677266 Problem CAD (coronary artery disease) I25.10 Active 47647062 Problem GERD (gastroesophageal reflux disease) 530.81 Active 074882371 Problem Asthma 493.90 Active 868108426 Problem Chronic airway obstruction, not elsewhere classified J44.9 Active 52579959 Problem DM w/o complication type II E11.9 Ac tive 83360011 ALLERGIES No Information ENCOUNTERS Encounter Location Date Diagnosis [place] [id number] [place] [address], [place] [id number] Jul, DM w/o complication type II E11.9 ; 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 [id number] [place] [address], [place] [id number] Jun, Syncope and collapse R55 [facility] [address] [facility] [id number] [place] [id number] Jun, [facility] [address] [facility] [place] [id number] [place] [id number] May, Bronchitis J40 [facility] [address] [facility] [id number] [place] [id number] May, 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, not elsewhere classified J44.9 ; Dysuria R30.0 ; Tinea pedis of right foot B35.3 and Encounter for immunization Z23 [facility] [place] [address] [id number] [place] [id number] Feb, Medicare welcome exam Z00.00 [facility] [place] [address] [id number] [place] [id number] Jan, Chronic airway obstruction, not elsewher e classified J44.9 [facility] [place] [address] [id number] [place] [id number] Dec, [facility] [place] [address] [id number] [place] [id number] Dec, DM w/o complication type II E11.9 ; 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, not elsewhere classified J44.9 and Acute cystitis with hematuria N30.01 [facility] [place] [address] [id number] [place] [id number] Oct, Encounter for screening for malignant ne oplasm of colon Z12.11 [facility] [place] [address] [id number] [place] [id number] Oct, Medicare welcome exam Z00.00 [facility] [place] [address] [id number] [place] [id number] September, Medicare welcome exam Z00.00 and Encount er for immunization Z23 [facility] [place] [address] [id number] [place] [id number] September, Bronchitis J40 [facility] [place] [address] [id number] [place] [id number] September, Bronchitis J40 [facility] [place] [address] [id number] [place] [id number] September, Other and unspecified hyperlipidemia E78 .5 [facility] [place] [address] [id number] [place] [id number] Aug, DM w/o complication type II E11.9 ; 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, not elsewhere classified J44.9 and Other and unspecified hyperlipidemia E78.5 [facility] [place] [address] [id number] [place] [id number] May, DM w/o complication type II E11.9 and Ch ronic airway obstruction, not elsewhere classified J44.9 [facility] [place] [address] [id number] [place] [id number] Apr, Acute cystitis with hematuria N30.01 [facility] [place] [address] [id number] [place] [id number] Feb, DM w/o complication type II E11.9 [facility] [place] [address] [id number] [place] [id number] Feb, Chronic airway obstruction, not elsewher e classified J44.9 ; DM w/o complication type II E11.9 and Encounter for immunization Z23 [facility] [place] [address] [id number] [place] [id number] Dec, [facility] [place] [address] [id number] [place] [id number] Nov, Chronic airway obstruction, not elsewher e classified J44.9 [facility] [place] [address] [id number] [place] [id number] Oct, DM w/o complication type II E11.9 [facility] [address] [facility] [id number] 100[address] [place] [address] Oct, [facility] [place] [address] [id number] [place] [id number] Aug, Chronic airway obstruction, not elsewher e classified J44.9 and DM w/o complication type II E11.9 [facility] [place] [address] [id number] [place] [id number] Aug, Chronic airway obstruction, not elsewher e classified J44.9 [facility] [place] [address] [id number] [place] [id number] Aug, DM w/o complication type II E11.9 and Ch ronic airway obstruction, not elsewhere classified J44.9 [facility] [place] [address] [id number] [place] [id number] Jul, [facility] [place] [address] [id number] [place] [id number] Jul, DM w/o complication type II E11.9 [facility] [place] [address] [id number] [place] [id number] Jun, [facility] [place] [address] [id number] [place] [id number] Jun, [facility] [place] [address] [id number] [place] [id number] Jun, Chronic airway obstruction, not elsewher e classified J44.9 ; DM w/o complication type II E11.9 and Other and unspecified hyperlipidemia E78.5 [facility] [place] [address] [id number] [place] [id number] Jun, CAD (coronary artery disease) I25.10 and Dizziness R42 [facility] [place] [address] [id number] [place] [id number] Jun, Bronchitis J40 [facility] [place] [address] [id number] [place] [id number] May, Hematoma T14.8 [facility] [place] [address] [id number] [place] [id number] May, [facility] [place] [address] [id number] [place] [id number] May, Bronchitis J40 [facility] [place] [address] [id number] [place] [id number] Apr, Bronchitis J40 [facility] [address] [facility] [id number] [address] [place] [address] Apr, [facility] [place] [address] [id number] [place] [id number] Mar, [facility] [place] [address] [facility] [address] [id number] [id number] Mar, [facility] [place] [address] [facility] [id number] [place] [id number] Mar, [facility] [address] [facility] [id number] [id number] Mar, [facility] [place] [address] [id number] [place] [id number] Mar, SOB (shortness of breath) R06.02 [facility] [place] [address] [id number] [place] [id number] Feb, Urinary tract infection, site not specif ied N39.0 and Hematuria, unspecified R31.9 [facility] [place] [address] [facility] [id number] [place] [id number] Feb, DM w/o complication type II E11.9 ; Enco unter for immunization Z23 and Chronic airway obstruction, not elsewhere classified J44.9 [place] [id number] [id number] Jan, [facility] [id number] [place] [address] [id number] Jan, [facility] [place] [address] [facility] [id number] [place] [id number] Dec, [facility] [place] [address] [id number] [place] [id number] Dec, [facility] [place] [address] [id number] [place] [id number] Dec, [facility] [place] [address] [id number] [place] [id number] Dec, [facility] [place] [address] [id number] [place] [id number] Dec, Blood in the stool 578.1 [facility] [place] [address] [id number] [place] [id number] Nov, [facility] [place] [address] [id number] [place] [id number] Nov, Colon cancer screening V76.51 [facility] [place] [address] [id number] [place] [id number] Nov, Vertigo 780.4 [facility] [place] [address] [id number] [place] [id number] Nov, Routine gynecological examination V72.31 ; Pap test, as part of routine gynecological examination V76.2 ; Breast cancer screening V76.10 ; Postmenopausal V49.81 and Colon cancer screening V76.51 [facility] [place] [address] [id number] [place] [id number] Nov, [facility] [place] [address] [id number] [place] [id number] Nov, [facility] [address] [id number] [address] [place] [address] Nov, [facility] [address] [id number] [place] [id number] Oct, Diabetes 250.00 ; COPD (chronic obstruct misha pulmonary disease) 496 and GERD (gastroesophageal reflux disease) 530.81 [facility] [address] [facility] [id number] [address] [place] [address] Oct, [facility] [address] [id number] [place] [id number] Oct, [facility] [place] [address] [id number] [place] [id number] Oct, [facility] [place] [address] [id number] [place], [place] [id number] Oct, Reflux 530.81 [facility] [address] [facility] [id number] [address] [place] [address] Oct, [facility] [place] [address] [id number] [place] [id number] Oct, [facility] [place] [address] [id number] [place] [id number] Oct, [facility] [place] [address] [id number] [place] [id number] Oct, Dysuria 788.1 [facility] [place] [address] [facility] [id number] [place] [id number] Oct, Dysuria 788.1 [facility] [address] [facility] [id number] [address] [place] [address] September, [facility] [place] [address] [id number] [place] [id number] September, Diabetes 250.00 and COPD (chronic obstru ctive pulmonary disease) 496 [facility] [place] [address] [id number] [place] [id number] September, [facility] [place] [address] [id number] [place] [id number] September, [facility] [place] [address] [facility] [id number] [id number] September, [facility] [place] [address] [facility] [id number] [place] [id number] Aug, Osteoarthritis 715.90 ; Diabetes 250.00 and COPD (chronic obstructive pulmonary disease) 496 [facility] [place] [address] [facility] [id number] [place] [id number] Aug, Pure hypercholesterolemia 272.0 ; Essent ial hypertension, benign 401.1 and Loss of weight 783.21 [facility] [address] [facility] [id number] [address] [place] [address] Aug, [facility] [address] [facility] [id number] [address] [place] [address] Aug, [facility] [address] [facility] [id number] [place] [id number] Jul, [facility] [address] [facility] [id number] [address] [place] [address] Jul, [facility] [address] [id number] [address] [place] [address] Jun, [facility] [address] [facility] [id number] [address] [place] [phone] Jun, [facility] [address] [facility] [id number] [place] [id number] Jun, [facility] [address] [id number] [facility] [place] [address] May, [facility] [place] [address] [id number] [place] [id number] May, [facility] [place] [address] [id number] [place] [id number] Apr, [facility] [address] [id number] [address] [place] [address], [place] [address] Apr, [facility] [place] [address] [id number] [place] [id number] Apr, [facility] [address] [id number] [address] [place] [address], [place] [address] Apr, [facility] [place] [address] [id number] [place] [id number] Apr, [facility] [address] [facility] [id number] [address] [place] [address], [place] [address] Apr, [facility] [place] [address] [id number] [place] [id number] Feb, [facility] [address] [facility] [id number] [address] [place] [address], [place] [address] Feb, [facility] [place] [address] [id number] [place] [id number] Feb, [facility] [address] [facility] [id number] [address] [place] [address], [place] [address] Feb, [facility] [address] [id number] [address] [place] [address], [place] [address] Jan, [facility] [place] [address] [id number] [place] [id number] Jan, [facility] [address] [id number] [address] [place] [address], [place] [address] Jan, [facility] [place] [address] [id number] [place] [id number] Jan, [facility] [address] [id number] [address] [place] [address], [place] [address] Jan, [facility] [address] [id number] [address] [place] [address], [place] [address] Dec, [facility] [address] [id number] [address] [place] [address], [place] [address] Dec, [facility] [place] [address] [id number] [place] [id number] September, [facility] [address] [id number] [address] [place] [address], [place] [address] September, [facility] [address] [id number] [address] [place] [address], [place] [address] September, [facility] [place] [address] [id number] [place] [id number] September, [facility] [place] [address] [id number] [place], [place] [id number] September, [facility] [address] [id number] [address] [place] [address], [place] [address] September, [facility] [place] [address] [id number] [place] [id number] Aug, [facility] [address] [id number] [address] [place] [address], [place] [address] Aug, [facility] [address] [id number] [address] [place] [address], [place] [address] Jul, [facility] [place] [address] [id number] [place] [id number] Jul, [facility] [address] [id number] [address] [place] [address], [place] [address] Jul, [facility] [place] [address] [id number] [place] [id number] Jun, [facility] [address] [id number] [address] [place] [address], [place] [address] Jun, [facility] [address] [id number] [address] [place] [address], [place] [address] Jun, [facility] [place] [address] [id number] [place] [id number] Jun, [facility] [place] [address] [id number] [place] [id number] May, [facility] [address] [facility] [id number] [address] [place] [address], [place] [address] May, [facility] [address] [id number] [address] [place] [address] Apr, [facility] [place] [address] [id number] [place] [id number] Mar, [facility] [address] [id number] [address] [place] [address], [place] [address] Mar, [facility] [address] [facility] [id number] [address] [place] [address], [place] [address] Mar, [facility] [address] [facility] [id number] [address] [place] [address] Mar, [facility] [place] [address] [id number] [place] [id number] Mar, [facility] [place] [address] [id number] [place] [id number] Feb, [facility] [address] [id number] [address] [place] [address], [place] [address] Feb, [facility] [place] [address] [id number] [place] [id number] Feb, [facility] [address] [id number] [address] [place] [address], [place] [address] Feb, [facility] [place] [address] [id number] [place] [id number] Feb, [facility] [address] [id number] [address] [place] [address], [place] [address] Feb, [facility] [place] [address] [id number] [place] [id number] Jan, [facility] [place] [address] [id number] [place] [id number] Dec, [facility] [place] [address] [id number] [place] [id number] Nov, [facility] [place] [address] [id number] [place] [id number] Oct, [facility] [place] [address] [id number] [place] [id number] Oct, [facility] [place] [address] [id number] [place] [id number] Oct, [facility] [place] [address] [id number] [place] [id number] Oct, [facility] [address] [facility] [id number] [address] [place] [address] September, [facility] [place] [address] [id number] [place] [id number] September, [facility] [address] [facility] [id number] [address] [place] [address] Aug, [facility] [place] [address] [id number] [place] [id number] Aug, [facility] [place] [address] [id number] [place] [id number] Jun, [facility] [place] [address] [id number] [place] [id number] Jun, [facility] [place] [address] [id number] [place] [id number] Feb, [facility] [address] [facility] [id number] [address] [place] [address] Feb, [facility] [place] [address] [id number] [place] [id number] Feb, [facility] [place] [address] [id number] [place] [id number] Dec, [facility] [address] [facility] [id number] [address] [place] [address] Dec, [facility] [place] [address] [id number] [place] [id number] Dec, [facility] [address] [id number] [place] [id number] Aug, [facility] [address] [id number] [place] [id number] May, [facility] [address] [facility] [id number] [place] [id number] May, [facility] [address] [facility] [id number] [address] [place] [address] Apr, [facility] [address] [facility] [id number] [address] [place] [address] September, [facility] [address] [id number] [address] [place] [address] Apr, [facility] [address] [id number] [address] [place] [address] Apr, [facility] [id number] [place] [address] Apr, IMMUNIZATIONS No Known Immunizations SOCIAL HISTORY Never Assessed REASON FOR VISIT Labs PLAN OF CARE VITAL SIGNS MEDICATIONS No [...]
--- OUTSIDE RECORDS SUMMARY | 2019-07-19 23:20 | XMS REPORT ---
Author Author Zoie DISLA Organization [facility] Address [address] [place] [address] Care Team Providers Care Supervisor Grading Name Role Phone ELLEN DISLA Unavailable PROBLEMS Type Condition ICD9-CM Code AQG11-DI Code Onset Dates Condition S tatus SNOMED Code Problem Diaphragmatic hernia without mention of obstruction or gangrene 553.3 Active 45646199 Problem Unspecified senile cataract 366.10 Ac tive 91238312 Problem Essential hypertension, benign 401.1 Active 9915469 Problem Loss of weight 783.21 Active 09243 5001 Problem Other and unspecified hyperlipidemia E78.5 Active 34245448 Problem CAD (coronary artery disease) I25.10 Active 38865957 Problem GERD (gastroesophageal reflux disease) 530.81 Active 633848151 Problem Asthma 493.90 Active 054214430 Problem Chronic airway obstruction, not elsewhere classified J44.9 Active 35015086 Problem DM w/o complication type II E11.9 Ac tive 90239061 ALLERGIES No Information ENCOUNTERS Encounter Location Date Diagnosis [place] [id number] [place] [address], S [id number] Oct, DM w/o complication type II E11.9 ; 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, 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 and CAD (coronary artery disease) I25.10 [place] [id number] [place] [id number] Jul, DM w/o complication type II E11.9 ; 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, 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 and Infective urethritis N34.[address] [place] [address], [place] [id number] Jun, Syncope and collapse R55 [address] [place] [address], [place] [id number] Jun, [place] [id number] [place] [address], [place] [id number] May, Bronchitis J40 [facility] [place] [address] [id number] [place] [id number] May, [facility] [place] [address] [id number] [place] [id number] May, [facility] [place] [address] [id number] [place] [id number] Apr, DM w/o complication type II E11.9 [facility] [place] [address] [id number] [place] [id number] Mar, DM w/o complication type II E11.9 ; 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, 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 ; Dysuria R30.0 ; Tinea pedis of right foot B35.3 and Encounter for immunization Z23 [facility] [address] [facility] [id number] [place] [id number] Feb, Medicare welcome exam Z00.00 [facility] [address] [place] [id number] [place] [id number] Jan, Chronic airway obstruction, not elsewher e classified J44.9 [facility] [place] [address] [id number] [place] [id number] Dec, [facility] [place] [address] [id number] [place] [id number] Dec, DM w/o complication type II E11.9 ; 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, 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 and Acute cystitis with hematuria N30.01 [facility] [place] [address] [id number] [place] [id number] Oct, Encounter for screening for malignant ne oplasm of colon Z12.11 [facility] [place] [address] [id number] [place] [id number] Oct, Medicare welcome exam Z00.00 [facility] [place] [address] [id number] [place] [id number] September, Medicare welcome exam Z00.00 and Encount er for immunization Z23 [facility] [address] [id number] [place] [id number] September, Bronchitis J40 [facility] [place] [address] [id number] [place] [id number] September, Bronchitis J40 [facility] [place] [address] [id number] [place] [id number] September, Other and unspecified hyperlipidemia E78 .5 [facility] [place] [address] [id number] [place] [id number] Aug, DM w/o complication type II E11.9 ; 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, 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 and Other and unspecified hyperlipidemia E78.5 [facility] [place] [address] [id number] [place] [id number] May, DM w/o complication type II E11.9 and Ch ronic airway obstruction, not elsewhere classified J44.9 [facility] [place] [address] [id number] [place] [id number] Apr, Acute cystitis with hematuria N30.01 [facility] [place] [address] [id number] [place] [id number] Feb, DM w/o complication type II E11.9 [facility] [place] [address] [id number] [place] [id number] Feb, Chronic airway obstruction, not elsewher e classified J44.9 ; DM w/o complication type II E11.9 and Encounter for immunization Z23 [facility] [place] [address] [id number] [place] [id number] Dec, [facility] [place] [address] [id number] [place] [id number] Nov, Chronic airway obstruction, not elsewher e classified J44.9 [facility] [place] [address] [id number] [place] [id number] Oct, DM w/o complication type II E11.9 [facility] [address] [facility] [id number] [address] [place] [address] Oct, [facility] [place] [address] [id number] [place] [id number] Aug, Chronic airway obstruction, not elsewher e classified J44.9 and DM w/o complication type II E11.9 [facility] [place] [address] [id number] [place] [id number] Aug, Chronic airway obstruction, not elsewher e classified J44.9 [facility] [place] [address] [id number] [place] [id number] Aug, DM w/o complication type II E11.9 and Ch ronic airway obstruction, not elsewhere classified J44.9 [facility] [place] [address] [id number] [place] [id number] Jul, [facility] [place] [address] [id number] [place] [id number] Jul, DM w/o complication type II E11.9 [facility] [place] [address] [id number] [place] [id number] Jun, [facility] [place] [address] [id number] [place] [id number] Jun, [facility] [place] [address] [id number] [place] [id number] Jun, Chronic airway obstruction, not elsewher e classified J44.9 ; DM w/o complication type II E11.9 and Other and unspecified hyperlipidemia E78.5 [facility] [place] [address] [id number] [place] [id number] Jun, CAD (coronary artery disease) I25.10 and Dizziness R42 [facility] [place] [address] [id number] [place] [id number] Jun, Bronchitis J40 [facility] [place] [address] [id number] [place] [id number] May, Hematoma T14.8 [facility] [place] [address] [id number] [place] [id number] May, [facility] [place] [address] [id number] [place] [id number] May, Bronchitis J40 [facility] [place] [address] [id number] [place] [id number] Apr, Bronchitis J40 [facility] [address] [facility] [id number] [address] [place] [address] Apr, [facility] [place] [address] [facility] [id number] [place] [id number] Mar, [facility] [address] [id number] [id number] Mar, [facility] [place] [address] [facility] [id number] [place] [id number] Mar, [facility] [address] [id number] [id number] Mar, [facility] [place] [address] [facility] [id number] [place] [id number] Mar, SOB (shortness of breath) R06.02 [facility] [place] [address] [facility] [id number] [place] [id number] Feb, Urinary tract infection, site not specif ied N39.0 and Hematuria, unspecified R31.9 [facility] [place] [address] [facility] [id number] [place] [id number] Feb, DM w/o complication type II E11.9 ; Enco unter for immunization Z23 and Chronic airway obstruction, not elsewhere classified J44.9 [facility] [address] [id number] [id number] Jan, [facility] [id number][place] [id number] Jan, [facility] [place] [address] [facility] [id number] [place] [id number] Dec, [facility] [place] [address] [facility] [id number] [place] [id number] Dec, [facility] [place] [address] [facility] [id number] [place] [id number] Dec, [facility] [place] [address] [id number] [place] [id number] Dec, [facility] [place] [address] [facility] [id number] [place] [id number] Dec, Blood in the stool 578.1 [facility] [place] [address] [id number] [place] [id number] Nov, [facility] [place] [address] [id number] [place] [id number] Nov, Colon cancer screening V76.51 [facility] [place] [address] [id number] [place] [id number] Nov, Vertigo 780.4 [facility] [place] [address] [id number] [place] [id number] Nov, Routine gynecological examination V72.31 ; Pap test, as part of routine gynecological examination V76.2 ; Breast cancer screening V76.10 ; Postmenopausal V49.81 and Colon cancer screening V76.51 [facility] [place] [address] [id number] [place] [id number] Nov, [facility] [address] [id number] [place] [id number] Nov, [facility] [address] [place] [place] [id number] [address] [place] [address] Nov, [facility] [address] [id number] [place] [id number] Oct, Diabetes 250.00 ; COPD (chronic obstruct misha pulmonary disease) 496 and GERD (gastroesophageal reflux disease) 530.81 [facility] [address] [facility] [id number] [address] [place] [address] Oct, [facility] [address] [id number] [place] [id number] Oct, [facility] [place] [address] [id number] [place] [id number] Oct, [facility] [place] [address] [id number] [place] [id number] Oct, Reflux 530.81 [facility] [address] [facility] [id number] [address] [place] [address] Oct, [facility] [address] [id number] [place] [id number] Oct, [facility] [address] [id number] [place] [id number] Oct, [facility] [place] [address] [id number] [place] [id number] Oct, Dysuria 788.1 [facility] [place] [address] [id number] [place] [id number] Oct, Dysuria 788.1 [facility] [address] [facility] [id number] [address] [place] [address] September, [facility] [place] [address] [facility] [id number] [place] [id number] September, Diabetes 250.00 and COPD (chronic obstru ctive pulmonary disease) 496 [facility] [place] [address] [facility] [id number] [place] [id number] September, [facility] [place] [address] [facility] [id number] [place] [id number] September, [facility] [address] [id number] [id number] September, [facility] [place] [address] [facility] [id number] [place] [id number] Aug, Osteoarthritis 715.90 ; Diabetes 250.00 and COPD (chronic obstructive pulmonary disease) 496 [facility] [place] [address] [facility] [id number] [place] [id number] Aug, Pure hypercholesterolemia 272.0 ; Essent ial hypertension, benign 401.1 and Loss of weight 783.21 [facility] [address] [facility] [id number] [address] [place] [address] Aug, [facility] [address] [facility] [id number] [address] [place] [address] Aug, [facility] [place] [address] [facility] [id number] [place] [id number] Jul, [facility] [address] [facility] [id number] [address] [place] [address] Jul, [facility] [address] [place] [id number] [address] [place] [address] Jun, [facility] [address] [id number] [address] [place] [address], [place] [address] Jun, [facility] [place] [address] [id number] [place] [id number] Jun, [facility] [address] [id number] [address] [place] [address], [place] [address] May, [facility] [place] [address] [id number] [place] [id number] May, [facility] [place] [address] [id number] [place] [id number] Apr, [facility] [address] [id number] [address] [place] [address], [place] [address] Apr, [facility] [place] [address] [id number] [place] [id number] Apr, [facility] [address] [id number] [address] [place] [address] Apr, [facility] [place] [address] [id number] [place] [id number] Apr, [facility] [address] [id number] [address] [place] [id number] Apr, [facility] [place] [address] [id number] [place] [id number] Feb, [facility] [address] [id number] [address] [place] [address] Feb, [facility] [place] [address] [id number] [place] [id number] Feb, [facility] [address] [id number] [address] [place] [id number] Feb, [facility] [address] [facility] [id number] [address] [place] [id number] Jan, [facility] [place] [address] [id number] [place] [id number] Jan, [facility] [address] [id number] [facility] [place] [address] Jan, [facility] [place] [address] [id number] [place] [id number] Jan, [facility] [address] [id number] [facility] [place] [address] Jan, [facility] [address] [id number] [address] [place] [address], [place] [address] Dec, [facility] [address] [id number] [address] [place] [address], [place] [address] Dec, [facility] [place] [address] [id number] [place] [id number] September, [facility] [address] [id number] [address] [place] [address], [place] [address] September, [facility] [address] [id number] [address] [place] [address], [place] [address] September, [facility] [place] [address] [id number] [place] [id number] September, [facility] [place] [address] [id number] [place] [id number] September, [facility] [address] [id number] [address] [place] [address], [place] [address] September, [facility] [place] [address] [id number] [place] [id number] Aug, [facility] [address] [id number] [address] [place] [address], [place] [address] Aug, [facility] [address] [id number] [address] [place] [address], [place] [address] Jul, [facility] [place] [address] [id number] [place] [id number] Jul, [facility] [address] [id number] [address] [place] [address], [place] [address] Jul, [facility] [place] [address] [id number] [place] [id number] Jun, [facility] [address] [id number] [address] [place] [address], [place] [address] Jun, [facility] [address] [id number] [address] [place] [address] Jun, [facility] [place] [address] [id number] [place] [id number] Jun, [facility] [place] [address] [id number] [place] [id number] May, [facility] [address] [id number] [address] [place] [address], [place] [address] May, [facility] [address] [id number] [address] [place] [address] Apr, [facility] [place] [address] [id number] [place] [id number] Mar, [facility] [address] [id number] [address] [place] [address] Mar, [facility] [address] [facility] [id number] [address] [place] [address], [place] [address] Mar, [facility] [address] [facility] [id number] [address] [place] [address] Mar, [facility] [place] [address] [id number] [place] [id number] Mar, [facility] [place] [address] [id number] [place] [id number] Feb, [facility] [address] [id number] [address] [place] [address], [place] [address] Feb, [facility] [place] [address] [id number] [place] [id number] Feb, [facility] [address] [id number] [address] [place] [address], [place] [address] Feb, [facility] [place] [address] [id number] [place] [id number] Feb, [facility] [address] [id number] [address] [place] [address] Feb, [facility] [place] [address] [id number] [place] [id number] Jan, [facility] [place] [address] [id number] [place] [id number] Dec, [facility] [place] [address] [id number] [place] [id number] Nov, [facility] [place] [address] [id number] [place] [id number] Oct, [facility] [place] [address] [id number] [place] [id number] Oct, [facility] [place] [address] [id number] [place] [id number] Oct, [facility] [place] [address] [id number] [place] [id number] Oct, [facility] [address] [id number] [address] [place] [address] September, [facility] [place] [address] [id number] [place] [id number] September, [facility] [address] [id number] [address] [place] [address] Aug, [facility] [place] [address] [id number] [place] [id number] Aug, [facility] [place] [address] [id number] [place] [id number] Jun, [facility] [place] [address] [id number] [place] [id number] Jun, [facility] [place] [address] [id number] [place] [id number] Feb, [facility] [address] [id number] [address] [place] [address] Feb, [facility] [place] [address] [id number] [place] [id number] Feb, [facility] [place] [address] [id number] [place] [id number] Dec, [facility] [address] [facility] [id number] [address] [place] [address] Dec, [facility] [address] [id number] [place] [id number] Dec, [facility] [address] [id number] [place] [id number] Aug, [facility] [address] [id number] [place] [id number] May, [facility] [address] [id number] [place] [id number] May, [facility] [address] [facility] [id number] [address] [place] [id number] Apr, [facility] [address] [id number] [address] [place] [address] September, [facility] [address] [facility] [id number] [address] [place] [phone] Apr, [facility] [address] [facility] [id number] [address] [place] [address] Apr, [facility] [address] [id number] [address] [place] [address] Apr, IMMUNIZATIONS No Known Immunizations SOCIAL HISTORY Never Assessed REASON FOR VISIT med refill PLAN OF CARE VITAL SIGNS MEDICATIONS Medication Instructions Dosage Frequency Start Date End Date Duration S tatus Accolate 20 mg Orally Twice a day 1 tablet 12h 0 day s Active RESULTS No Results PROCEDURES No Known [...]
--- OUTSIDE RECORDS SUMMARY | 2019-07-19 23:21 | XMS REPORT ---
Author Author Zoie DISLA Organization [facility] Address [address] [place] [address] Care Team Providers Care Clerk Guide Name Role Phone ELLEN DISLA Unavailable PROBLEMS Type Condition ICD9-CM Code [id number] Code Onset Dates Condition S tatus SNOMED Code Problem Diaphragmatic hernia without mention of obstruction or gangrene 553.3 Active 69830762 Problem Unspecified senile cataract 366.10 Ac tive 53575132 Problem Essential hypertension, benign 401.1 Active 7141597 Problem Loss of weight 783.21 Active 94605 5001 Problem Other and unspecified hyperlipidemia E78.5 Active 59090227 Problem CAD (coronary artery disease) I25.10 Active 28066346 Problem GERD (gastroesophageal reflux disease) 530.81 Active 408532156 Problem Asthma 493.90 Active 587761725 Problem Chronic airway obstruction, not elsewhere classified J44.9 Active 15396355 Problem DM w/o complication type II E11.9 Ac tive 16398279 ALLERGIES No Information ENCOUNTERS Encounter Location Date Diagnosis [place] [id number] [place] [address], [place] [id number] Jul, DM w/o complication type II E11.9 ; Leather Splitter 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, not elsewhere classified J44.9 and Infective urethritis N34.2 [facility] [id number] [place] [address], [place] [id number] Jun, Syncope and collapse R55 [facility] [id number] [place] [address], [place] [id number] Jun, [facility] [address] [facility] [id number] [place] [id number] May, Bronchitis J40 [facility] [address] [facility] [id number] [place] [id number] May, [facility] [id number] [place] [address], [place] [phone] May, [facility] [place] [address] [id number] [place] [id number] Apr, DM w/o complication type II E11.9 [facility] [place] [address] [id number] [place] [id number] Mar, DM w/o complication type II E11.9 ; Leather Splitter 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, not elsewhere classified J44.9 ; Dysuria R30.0 ; Tinea pedis of right foot B35.3 and Encounter for immunization Z23 [facility] [place] [address] [id number] [place] [id number] Feb, Medicare welcome exam Z00.00 [facility] [place] [address] [id number] [place] [id number] Jan, Chronic airway obstruction, not elsewher e classified J44.9 [facility] [place] [address] [id number] [place] [id number] Dec, [facility] [place] [address] [id number] [place] [id number] Dec, DM w/o complication type II E11.9 ; Leather Splitter 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, not elsewhere classified J44.9 and Acute cystitis with hematuria N30.01 [facility] [place] [address] [id number] [place] [id number] Oct, Encounter for screening for malignant ne oplasm of colon Z12.11 [facility] [place] [address] [id number] [place] [id number] Oct, Medicare welcome exam Z00.00 [facility] [place] [address] [id number] [place] [id number] September, Medicare welcome exam Z00.00 and Encount er for immunization Z23 [facility] [place] [address] [id number] [place] [id number] September, Bronchitis J40 [facility] [place] [address] [id number] [place] [id number] September, Bronchitis J40 [facility] [place] [address] [id number] [place] [id number] September, Other and unspecified hyperlipidemia E78 .5 [facility] [place] [address] [id number] [place] [id number] Aug, DM w/o complication type II E11.9 ; Leather Splitter 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, not elsewhere classified J44.9 and Other and unspecified hyperlipidemia E78.5 [facility] [place] [address] [id number] [place] [id number] May, DM w/o complication type II E11.9 and Ch ronic airway obstruction, not elsewhere classified J44.9 [facility] [place] [address] [id number] [place] [id number] Apr, Acute cystitis with hematuria N30.01 [facility] [place] [address] [id number] [place] [id number] Feb, DM w/o complication type II E11.9 [facility] [place] [address] [id number] [place] [id number] Feb, Chronic airway obstruction, not elsewher e classified J44.9 ; DM w/o complication type II E11.9 and Encounter for immunization Z23 [facility] [place] [address] [id number] [place] [id number] Dec, [facility] [place] [address] [id number] [place] [id number] Nov, Chronic airway obstruction, not elsewher e classified J44.9 [facility] [place] [address] [id number] [place] [id number] Oct, DM w/o complication type II E11.9 [facility] [place] [address] [facility] [id number] [address] [place] [address] Oct, [facility] [place] [address] [id number] [place] [id number] Aug, Chronic airway obstruction, not elsewher e classified J44.9 and DM w/o complication type II E11.9 [facility] [place] [address] [id number] [place] [id number] Aug, Chronic airway obstruction, not elsewher e classified J44.9 [facility] [place] [address] [id number] [place] [id number] Aug, DM w/o complication type II E11.9 and Ch ronic airway obstruction, not elsewhere classified J44.9 [facility] [place] [address] [id number] [place] [id number] Jul, [facility] [place] [address] [id number] [place] [id number] Jul, DM w/o complication type II E11.9 [facility] [place] [address] [id number] [place] [id number] Jun, [facility] [place] [address] [id number] [place] [id number] Jun, [facility] [place] [address] [id number] [place] [id number] Jun, Chronic airway obstruction, not elsewher e classified J44.9 ; DM w/o complication type II E11.9 and Other and unspecified hyperlipidemia E78.5 [facility] [place] [address] [id number] [place] [id number] Jun, CAD (coronary artery disease) I25.10 and Dizziness R42 [facility] [place] [address] [id number] [place] [id number] Jun, Bronchitis J40 [facility] [place] [address] [id number] [place] [id number] May, Hematoma T14.8 [facility] [place] [address] [id number] [place] [id number] May, [facility] [place] [address] [id number] [place] [id number] May, Bronchitis J40 [facility] [place] [address] [id number] [place] [id number] Apr, Bronchitis J40 [facility] [place] [address] [facility] [id number] [address] [place] [address] Apr, [facility] [place] [address] [id number] [place] [id number] Mar, [facility] [address] [facility] [address] [id number] [id number] Mar, [facility] [place] [address] [id number] [place] [id number] Mar, [facility] [place] [address] [facility] [address] [id number][place] [id number] Mar, [facility] [place] [address] [id number] [place] [id number] Mar, SOB (shortness of breath) R06.02 [facility] [place] [address] [id number] [place] [id number] Feb, Urinary tract infection, site not specif ied N39.0 and Hematuria, unspecified R31.9 [facility] [place] [address] [facility] [id number] [place] [id number] Feb, Encounter for immunization Z23 ; DM w/o complication type II E11.9 and Chronic airway obstruction, not elsewhere classified J44.9 [facility] [id number][place] [id number] Jan, [facility] [id number] [place] [address] [id number] Jan, [facility] [place] [address] [facility] [id number] [place] [id number] Dec, [facility] [place] [address] [id number] [place] [id number] Dec, [facility] [place] [address] [id number] [place] [id number] Dec, [facility] [place] [address] [id number] [place] [id number] Dec, [facility] [place] [address] [id number] [place] [id number] Dec, Blood in the stool 578.1 [facility] [place] [address] [id number] [place] [id number] Nov, [facility] [place] [address] [id number] [place] [id number] Nov, Colon cancer screening V76.51 [facility] [place] [address] [id number] [place] [id number] Nov, Vertigo 780.4 [facility] [place] [address] [id number] [place] [id number] Nov, Routine gynecological examination V72.31 ; Pap test, as part of routine gynecological examination V76.2 ; Breast cancer screening V76.10 ; Postmenopausal V49.81 and Colon cancer screening V76.51 [facility] [place] [address] [id number] [place] [id number] Nov, [facility] [place] [address] [id number] [place] [id number] Nov, [facility] [address] [facility] [id number] [address] [place] [address] Nov, [facility] [address] [id number] [place] [id number] Oct, Diabetes 250.00 ; COPD (chronic obstruct misha pulmonary disease) 496 and GERD (gastroesophageal reflux disease) 530.81 [facility] [address] [facility] [id number] [address] [place] [address] Oct, [facility] [address] [facility] [id number] [place] [id number] Oct, [facility] [address] [id number] [place] [id number] Oct, [facility] [place] [address] [id number] [place] [id number] Oct, Reflux 530.81 [facility] [address] [facility] [id number] [address] [place] [address] Oct, [facility] [place] [address] [id number] [place] [id number] Oct, [facility] [place] [address] [id number] [place] [id number] Oct, [facility] [address] [id number] [place] [id number] Oct, Dysuria 788.1 [facility] [place] [address] [facility] [id number] [place] [id number] Oct, Dysuria 788.1 [facility] [address] [facility] [id number] [address] [place] [address] September, [facility] [place] [address] [id number] [place] [id number] September, Diabetes 250.00 and COPD (chronic obstru ctive pulmonary disease) 496 [facility] [place] [address] [facility] [id number] [place] [id number] September, [facility] [place] [address] [id number] [place] [id number] September, [facility] [address] [id number], [place] [id number] September, [facility] [place] [address] [facility] [id number] [place] [id number] Aug, Osteoarthritis 715.90 ; Diabetes 250.00 and COPD (chronic obstructive pulmonary disease) 496 [facility] [place] [address] [facility] [id number] [place] [id number] Aug, Pure hypercholesterolemia 272.0 ; Essent ial hypertension, benign 401.1 and Loss of weight 783.21 [facility] [address] [id number] [place] [address] Aug, [facility] [address] [id number] [address] [place] [address] Aug, [facility] [place] [address] [facility] [id number] [place] [id number] Jul, [facility] [address] [id number] [place] [address] Jul, [facility] [address] [id number] [place] [address] Jun, [facility] [address] [id number] [address] [place] [address] Jun, [facility] [address] [facility] [id number] [place] [id number] Jun, [facility] [address] [id number] [facility] [place] [address] May, [facility] [place] [address] [id number] [place] [id number] May, [facility] [place] [address] [id number] [place] [id number] Apr, [facility] [address] [id number] [address] [place] [address], [place] [address] Apr, [facility] [place] [address] [id number] [place] [id number] Apr, [facility] [address] [id number] [address] [place] [address], [place] [address] Apr, [facility] [place] [address] [id number] [place] [id number] Apr, [facility] [address] [id number] [address] [place] [address], [place] [address] Apr, [facility] [place] [address] [id number] [place] [id number] Feb, [facility] [address] [id number] [address] [place] [address], [place] [address] Feb, [facility] [place] [address] [id number] [place] [id number] Feb, [facility] [address] [id number] [address] [place] [address], [place] [address] Feb, [facility] [address] [id number] [address] [place] [address], [place] [address] Jan, [facility] [place] [address] [id number] [place] [id number] Jan, [facility] [address] [id number] [address] [place] [place] [address], [place] [address] Jan, [facility] [place] [address] [id number] [place] [id number] Jan, [facility] [address] [id number] [address] [place] [place] [address], [place] [address] Jan, [facility] [address] [id number] [address] [place] [address], [place] [address] Dec, [facility] [address] [id number] [address] [place] [address], [place] [address] Dec, [facility] [place] [address] [id number] [place] [id number] September, [facility] [address] [id number] [address] [place] [address], [place] [address] September, [facility] [address] [id number] [address] [place] [place] [address], [place] [address] September, [facility] [place] [address] [id number] [place] [id number] September, [facility] [place] [address] [id number] [place] [id number] September, [facility] [address] [id number] [address] [place] [address], [place] [address] September, [facility] [place] [address] [id number] [place] [id number] Aug, [facility] [address] [id number] [address] [place] [place] [address], [place] [address] Aug, [facility] [address] [id number] [address] [place] [address], [place] [address] Jul, [facility] [place] [address] [id number] [place] [id number] Jul, [facility] [address] [id number] [address] [place] [address], [place] [address] Jul, [facility] [place] [address] [id number] [place] [id number] Jun, [facility] [address] [id number] [address] [place] [address], [place] [address] Jun, [facility] [address] [id number] [address] [place] [place] [address], [place] [address] Jun, [facility] [place] [address] [id number] [place] [id number] Jun, [facility] [place] [address] [id number] [place] [id number] May, [facility] [address] [id number] [address] [place] [address], [place] [address] May, [facility] [address] [id number] [address] [place] [address] Apr, [facility] [place] [address] [id number] [place] [id number] Mar, [facility] [address] [id number] [address] [place] [address] Mar, [facility] [address] [facility] [id number] [address] [place] [address] Mar, [facility] [address] [id number] [address] [place] [address] Mar, [facility] [place] [address] [id number] [place] [id number] Mar, [facility] [place] [address] [id number] [place] [id number] Feb, [facility] [address] [id number] [address] [place] [address] Feb, [facility] [place] [address] [id number] [place] [id number] Feb, [facility] [address] [id number] [address] [place] [address], [place] [address] Feb, [facility] [place] [address] [id number] [place] [id number] Feb, [facility] [address] [id number] [address] [place] [address], [place] [address] Feb, [facility] [place] [address] [id number] [place] [id number] Jan, [facility] [place] [address] [id number] [place] [id number] Dec, [facility] [place] [address] [id number] [place] [id number] Nov, [facility] [place] [address] [id number] [place] [id number] Oct, [facility] [place] [address] [id number] [place] [id number] Oct, [facility] [place] [address] [id number] [place] [id number] Oct, [facility] [place] [address] [id number] [place] [id number] Oct, [facility] [address] [facility] [id number] [address] [place] [address] September, [facility] [place] [address] [id number] [place] [id number] September, [facility] [place] [address] [facility] [id number] [address] [place] [address] Aug, [facility] [place] [address] [id number] [place] [id number] Aug, [facility] [place] [address] [id number] [place] [id number] Jun, [facility] [place] [address] [id number] [place] [id number] Jun, [facility] [place] [address] [id number] [place] [id number] Feb, [facility] [address] [facility] [id number] [address] [place] [address] Feb, [facility] [place] [address] [id number] [place] [id number] Feb, [facility] [place] [address] [id number] [place] [id number] Dec, [facility] [address] [facility] [id number] [address] [place] [address] Dec, [facility] [place] [address] [id number] [place] [id number] Dec, [facility] [address] [id number] [place] [id number] Aug, [facility] [address] [id number] [place] [id number] May, [facility] [address] [id number] [place] [id number] May, [facility] [address] [facility] [id number] [address] [place] [address] Apr, [facility] [address] [facility] [id number] [address] [place] [address] September, [facility] [address] [facility] [id number] [address] [place] [address] Apr, [facility] [address] [id number] [address] [place] [address] Apr, [facility] [address] [id number] [address] [place] [address] Apr, IMMUNIZATIONS No Known Immunizations SOCIAL HISTORY Never Assessed REASON FOR VISIT RX-Albuterol solution PLAN OF CARE VITAL SIGNS MEDICATIONS Medication Instructions Dosage Frequency Start Date End Date Duration S tatus Albuterol Sulfate (2.5 MG/3ML) 0.083% Inhalation Three times a day 3 m l 8h Active RESULTS No Results PROCEDURES No Known [...]
--- OUTSIDE RECORDS SUMMARY | 2019-07-19 23:22 | XMS REPORT | Continuity of Care Document ---
Author Organization Unknown Address Unknown Phone Unavailable Allergies Active Description Code Type Severity Reaction Onset Reported/Identified Relationship to Patient Clinical Status Yes sulfADIAZINE Drug Allergy 10/18/2009 Yes sulfADIAZINE Drug Allergy N/A N/A 10/18/2009 Yes Sulfa (Sulfonamide Antibiotics) [id number] Drug Allergy Moderate N/A 2016 Medications There is no data. Problems Date Dx Coded Attending Type Code Diagnosis Diagnosed By 08/16/2009 477.9 NBA RGIC RHINITIS, CAUSE UNSPECIFIED 08/16/2009 493.92 AST HMA, UNSPECIFIED, WITH (ACUTE) EXACERBATION 08/16/2009 ELLEN DISLA APRN 477.9 ALLERGIC RHINITIS, CAUSE UNSPECIFIED 08/16/2009 ELLEN DISLA APRN 493.92 ASTHMA, UNSPECIFIED, WITH (ACUTE) EXACERBATION 08/16/2009 477.9 NBA RGIC RHINITIS, CAUSE UNSPECIFIED 08/16/2009 493.92 AST HMA, UNSPECIFIED, WITH (ACUTE) EXACERBATION 08/16/2009 477.9 NBA RGIC RHINITIS, CAUSE UNSPECIFIED 08/16/2009 493.92 AST HMA, UNSPECIFIED, WITH (ACUTE) EXACERBATION 08/16/2009 477.9 NBA RGIC RHINITIS, CAUSE UNSPECIFIED 08/16/2009 493.92 AST HMA, UNSPECIFIED, WITH (ACUTE) EXACERBATION 08/16/2009 477.9 NBA RGIC RHINITIS, CAUSE UNSPECIFIED 08/16/2009 493.92 AST HMA, UNSPECIFIED, WITH (ACUTE) EXACERBATION 08/16/2009 477.9 NBA RGIC RHINITIS, CAUSE UNSPECIFIED 08/16/2009 493.92 AST HMA, UNSPECIFIED, WITH (ACUTE) EXACERBATION 08/16/2009 ELLEN DISLA [...] ASTHMA, UNSPECIFIED, WITH (ACUTE) EXACERBATION 08/16/2009 DISLA MATCHER ELLEN R 477.9 ALLERGIC RHINITIS, CAUSE UNSPECIFIED 08/16/2009 DISLA MATCHER, ELLEN R 493.92 ASTHMA, UNSPECIFIED, WITH (ACUTE) [...] ASTHMA, UNSPECIFIED, WITH (ACUTE) EXACERBATION 08/16/2009 DISLA MATCHER, ELLEN R 477.9 ALLERGIC RHINITIS, CAUSE UNSPECIFIED 08/16/2009 DISLA MATCHER, ELLEN R 493.92 ASTHMA, UNSPECIFIED, WITH (ACUTE) EXACERBATION 08/16/2009 DISLA MATCHER, ELLEN R 477.9 ALLERGIC RHINITIS, CAUSE UNSPECIFIED 08/16/2009 DISLA MATCHER, ELLEN R 493.92 ASTHMA, UNSPECIFIED, WITH (ACUTE) EXACERBATION 08/16/2009 DISLA MATCHER, ELLEN R 477.9 ALLERGIC RHINITIS, CAUSE UNSPECIFIED 08/16/2009 ELLEN DISLA APRN 493.92 ASTHMA, UNSPECIFIED, WITH (ACUTE) EXACERBATION 08/16/2009 TOSHIA POPE DO 477.9 ALLERGIC RHINITIS, CAUSE UNSPECIFIED 08/16/2009 TOSHIA BLISS TOSHIA K 493.92 ASTHMA, UNSPECIFIED, WITH (ACUTE) EXACERBATION 10/18/2009 536.8 DYSP EPSIA AND OTHER SPECIFIED DISORDERS OF FUNCTION OF STOMACH 10/18/2009 ELLEN DISLA APRN 536.8 DYSPEPSIA AND OTHER SPECIFIED DISORDERS OF FUNCTION OF STOMACH 10/18/2009 536.8 DYSP EPSIA AND OTHER SPECIFIED DISORDERS OF FUNCTION OF STOMACH 10/18/2009 536.8 DYSP EPSIA AND OTHER SPECIFIED DISORDERS OF FUNCTION OF STOMACH 10/18/2009 536.8 DYSP EPSIA AND OTHER SPECIFIED DISORDERS OF FUNCTION OF STOMACH 10/18/2009 536.8 DYSP EPSIA AND OTHER SPECIFIED DISORDERS OF FUNCTION OF STOMACH 10/18/2009 536.8 DYSP EPSIA AND OTHER SPECIFIED DISORDERS OF FUNCTION OF [...] K 530.81 GERD 04/20/2010 ELLEN DISLA APRN R 530.81 GERD 04/20/2010 POPE DO, TOSHIA K 530.81 GERD 04/20/2010 POPE DO, TOSHIA K 530.81 GERD 04/20/2010 POPE DO, TOSHIA K 530.81 GERD 04/20/2010 POPE DO, TOSHIA K 530.81 GERD 04/20/2010 ELLEN DISLA APRN 530.81 GERD 04/20/2010 ELLEN DISLA APRN 530.81 GERD 04/20/2010 ELLEN DISLA APRN 530.81 GERD 04/20/2010 POPE DO, TOSHIA K 530.81 GERD 09/05/2010 719.07 ELYSSA MA FOOT 09/05/2010 ELLEN DISLA APRN 719.07 EDEMA FOOT 09/05/2010 719.07 ELYSSA MA FOOT 09/05/2010 719.07 ELYSSA MA FOOT 09/05/2010 719.07 ELYSSA MA FOOT 09/05/2010 719.07 ELYSSA MA FOOT 09/05/2010 719.07 ELYSSA MA FOOT 09/05/2010 ELLEN DISLA APRN 719.07 EDEMA [...] TOSHIA K 719.07 EDEMA FOOT 02/04/2011 493.90 AST HMA UNSPECIFIED 02/04/2011 786.07 WHE EZING 02/04/2011 786.2 COUGH 02/04/2011 787.01 JESSICA SEA WITH VOMITING 02/04/2011 ELLEN DISLA APRN 493.90 ASTHMA UNSPECIFIED 02/04/2011 ELLEN DISLA APRN 786.07 WHEEZING 02/04/2011 ELLEN DISLA APRN 786.2 COUGH 02/04/2011 ELLEN DISLA APRN 787.01 NAUSEA WITH VOMITING 02/04/2011 493.90 AST HMA UNSPECIFIED 02/04/2011 786.07 WHE EZING 02/04/2011 786.2 COUGH 02/04/2011 787.01 JESSICA SEA WITH VOMITING 02/04/2011 493.90 AST HMA UNSPECIFIED 02/04/2011 786.07 WHE EZING 02/04/2011 786.2 COUGH 02/04/2011 787.01 JESSICA SEA WITH VOMITING 02/04/2011 493.90 AST HMA UNSPECIFIED 02/04/2011 786.07 WHE EZING 02/04/2011 786.2 COUGH 02/04/2011 787.01 JESSICA SEA WITH VOMITING 02/04/2011 493.90 AST HMA UNSPECIFIED 02/04/2011 786.07 WHE EZING 02/04/2011 786.2 COUGH 02/04/2011 787.01 JESSICA SEA WITH VOMITING 02/04/2011 493.90 AST HMA UNSPECIFIED 02/04/2011 786.07 WHE EZING 02/04/2011 786.2 COUGH 02/04/2011 787.01 JESSICA SEA WITH VOMITING 02/04/2011 ELLEN DISLA APRN 493.90 ASTHMA UNSPECIFIED 02/04/2011 ELLEN DISLA APRN 786.07 WHEEZING 02/04/2011 DISLA ELLEN MICHELLE R 786.2 COUGH 02/04/2011 ELLEN DISLA APRN 787.01 NAUSEA WITH VOMITING 02/04/2011 POPE DO, [...] 02/04/2011 ELLEN DISLA APRN 786.2 COUGH 02/04/2011 DISLA MATCHER, ELLEN R 787.01 NAUSEA WITH VOMITING 02/04/2011 [...] K 787.01 NAUSEA WITH VOMITING 02/04/2011 DISLA MATCHER, ELLEN R 493.90 ASTHMA UNSPECIFIED 02/04/2011 DISLA MATCHER, ELLEN R 786.07 WHEEZING 02/04/2011 DISLA MATCHER, ELLEN R 786.2 COUGH 02/04/2011 DISLA MATCHER, ELLEN R 787.01 NAUSEA WITH VOMITING 02/04/2011 DISLA MATCHER, ELLEN R 493.90 ASTHMA UNSPECIFIED 02/04/2011 DISLA MATCHER, ELLEN R 786.07 WHEEZING 02/04/2011 DISLA MATCHER, ELLEN R 786.2 COUGH 02/04/2011 DISLA MATCHER, ELLEN R 787.01 NAUSEA WITH VOMITING 02/04/2011 DISLA MATCHER, ELLEN R 493.90 ASTHMA UNSPECIFIED 02/04/2011 DISLA MATCHER, ELLEN R 786.07 WHEEZING 02/04/2011 DISLA MATCHER, ELLEN R 786.2 COUGH 02/04/2011 DISLA MATCHER, ELLEN R 787.01 NAUSEA WITH VOMITING 02/04/2011 POPE DO, TOSHIA K 493.90 ASTHMA UNSPECIFIED 02/04/2011 POPE DO, TOSHIA K 786.07 WHEEZING 02/04/2011 POPE DO, TOSHIA K 786.2 COUGH 02/04/2011 POPE DO, TOSHIA K 787.01 NAUSEA WITH VOMITING 05/02/2011 931 FOREIG N BODY IN EAR 05/02/2011 ELLEN DISLA APRN 931 FOREIGN BODY IN EAR 05/02/2011 931 FOREIG N BODY IN EAR 05/02/2011 931 FOREIG N BODY IN EAR 05/02/2011 931 FOREIG N BODY IN EAR 05/02/2011 931 FOREIG N BODY IN EAR 05/02/2011 931 FOREIG N BODY IN EAR 05/02/2011 ELLEN DISLA APRN [...] 931 FOREIGN BODY IN EAR 05/20/2011 599.0 URIN LUCIANO TRACT INFECTION 05/20/2011 791.5 GLYC OSURIA 05/20/2011 ELLEN DISLA APRN 599.0 URINARY TRACT INFECTION 05/20/2011 ELLEN DISLA APRN 791.5 GLYCOSURIA 05/20/2011 599.0 URIN LUCIANO TRACT INFECTION 05/20/2011 791.5 GLYC OSURIA 05/20/2011 599.0 URIN LUCIANO TRACT INFECTION 05/20/2011 791.5 GLYC OSURIA 05/20/2011 599.0 URIN LUCIANO TRACT INFECTION 05/20/2011 791.5 GLYC OSURIA 05/20/2011 599.0 URIN LUCIANO TRACT INFECTION 05/20/2011 791.5 GLYC OSURIA 05/20/2011 599.0 URIN LUCIANO TRACT INFECTION 05/20/2011 791.5 GLYC OSURIA 05/20/2011 ELLEN DISLA APRN 599.0 URINARY TRACT INFECTION 05/20/2011 ELLEN DISLA APRN 791.5 GLYCOSURIA 05/20/2011 POPE DO, TOSHIA K [...] K 791.5 GLYCOSURIA 05/20/2011 ELLEN DISLA APRN 599.0 URINARY TRACT INFECTION 05/20/2011 ELLEN DISLA APRN 791.5 GLYCOSURIA 05/20/2011 POPE DO, TOSHIA K [...] K 791.5 GLYCOSURIA 05/20/2011 ELLEN DISLA APRN 599.0 URINARY TRACT INFECTION 05/20/2011 ELLEN DISLA APRN 791.5 GLYCOSURIA 05/20/2011 ELLEN DISLA APRN 599.0 URINARY TRACT INFECTION 05/20/2011 ELLEN DISLA APRN 791.5 GLYCOSURIA 05/20/2011 ELLEN DISLA APRN 599.0 URINARY TRACT INFECTION 05/20/2011 ELLEN DISLA APRN 791.5 GLYCOSURIA 05/20/2011 TOSHIA POPE DO K 599.0 URINARY TRACT INFECTION 05/20/2011 TOSHIA POPE DO 791.5 GLYCOSURIA 12/26/2011 682.5 CELL ULITIS AND ABSCESS OF BUTTOCK 12/26/2011 ELLEN DISLA APRN 682.5 CELLULITIS AND ABSCESS OF BUTTOCK 12/26/2011 682.5 CELL ULITIS AND ABSCESS OF BUTTOCK 12/26/2011 682.5 CELL ULITIS AND ABSCESS OF BUTTOCK 12/26/2011 682.5 CELL ULITIS AND ABSCESS OF BUTTOCK 12/26/2011 682.5 CELL ULITIS AND ABSCESS OF BUTTOCK 12/26/2011 682.5 CELL ULITIS AND ABSCESS OF BUTTOCK 12/26/2011 ELLEN DISLA APRN 682.5 CELLULITIS AND ABSCESS OF BUTTOCK 12/26/2011 LESLEY POPE DOA K 682.5 CELLULITIS AND ABSCESS OF BUTTOCK 12/26/2011 TOSHIA BLISS, TOSHIA K 682.5 CELLULITIS AND ABSCESS OF BUTTOCK 12/26/2011 POPE DO, TOSHIA K 682.5 CELLULITIS AND ABSCESS OF BUTTOCK 12/26/2011 TOSHIA BLISS, TOSHIA K 682.5 CELLULITIS AND ABSCESS OF BUTTOCK 12/26/2011 ELLEN DISLA APRN 682.5 CELLULITIS AND ABSCESS OF BUTTOCK 12/26/2011 POPE DO TOSHIA K 682.5 CELLULITIS AND ABSCESS OF BUTTOCK 12/26/2011 POPE DO, TOSHIA K 682.5 CELLULITIS AND ABSCESS OF BUTTOCK 12/26/2011 TOSHIA BLISS, TOSHIA K 682.5 CELLULITIS AND ABSCESS OF BUTTOCK 12/26/2011 POPE DO, TOSHIA K 682.5 CELLULITIS AND ABSCESS OF BUTTOCK 12/26/2011 ELLEN DISLA APRN 682.5 CELLULITIS AND ABSCESS OF BUTTOCK 12/26/2011 ELLEN DISLA APRN 682.5 CELLULITIS AND ABSCESS OF BUTTOCK 12/26/2011 ELLEN DISLA APRN 682.5 CELLULITIS AND ABSCESS OF BUTTOCK 12/26/2011 POPE TOSHIA BLISS 682.5 CELLULITIS AND ABSCESS OF BUTTOCK 07/01/2012 ELLEN DISLA APRN 487.1 INFLUENZA 07/01/2012 487.1 INFL UENZA 07/01/2012 487.1 INFL UENZA 07/01/2012 487.1 INFL UENZA 07/01/2012 487.1 INFL UENZA 07/01/2012 487.1 INFL UENZA 07/01/2012 ELLEN DISLA APRN 487.1 INFLUENZA 07/01/2012 POPE TOSHIA BLISS K 487.1 INFLUENZA 07/01/2012 TOSHIA POPE DO K 487.1 INFLUENZA 07/01/2012 TOSHIA POPE DO K 487.1 INFLUENZA 07/01/2012 TOSHIA POPE DO K 487.1 INFLUENZA 07/01/2012 ELLEN DISLA APRN 487.1 INFLUENZA 07/01/2012 POPE TOSHIA BLISS K 487.1 INFLUENZA 07/01/2012 POPE TOSHIA BLISS K 487.1 INFLUENZA 07/01/2012 POPE LESLEY BLISSA K 487.1 INFLUENZA 07/01/2012 LESLEY POPE DOA K 487.1 INFLUENZA 07/01/2012 ELLEN DISLA APRN 487.1 INFLUENZA 07/01/2012 ELLEN DISLA APRN 487.1 INFLUENZA 07/01/2012 ELLEN DISLA APRN 487.1 INFLUENZA 07/01/2012 POPE TOSHIA BLISS 487.1 INFLUENZA 08/14/2012 Ot 112.4 CAND IDIASIS OF LUNG 08/14/2012 Ot 275.2 DIS MAGNESIUM METABOLISM 08/14/2012 Ot 276.1 HYPO SMOLALITY 08/14/2012 Ot 276.8 HYPO POTASSEMIA 08/14/2012 Ot 285.9 ANEM IA NOS 08/14/2012 Ot 300.00 ANX IETY STATE NOS 08/14/2012 Ot 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 08/14/2012 Ot 401.9 HYPE RTENSION NOS 08/14/2012 Ot 493.90 AST HMA, UNSPECIFIED 08/14/2012 Ot 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 08/14/2012 Ot 707.07 PRE SSURE ULCER, HEEL 08/14/2012 Ot 707.20 PRE SSURE ULCER, UNSPECIFIED STAGE 08/14/2012 Ot 790.29 OTH ER ABNORMAL GLUCOSE 08/14/2012 Ot E932.0 ADV EFF CORTICOSTEROIDS 08/14/2012 Ot V46.2 SUPP LEMENTAL OXYGEN 08/14/2012 Ot V57.1 PHYS ICAL THERAPY NEC 08/14/2012 Ot V57.21 ENC OUNTER FOR OCCUPATIONAL THERAPY 08/17/2012 ELLEN DISLA APRN 401.1 HYPERTENSION, BENIGN ESSENTIAL 08/17/2012 401.1 HYPE RTENSION, BENIGN ESSENTIAL 08/17/2012 401.1 HYPE RTENSION, BENIGN ESSENTIAL 08/17/2012 401.1 HYPE RTENSION, BENIGN ESSENTIAL 08/17/2012 401.1 HYPE RTENSION, BENIGN ESSENTIAL 08/17/2012 401.1 HYPE RTENSION, BENIGN ESSENTIAL 08/17/2012 ELLEN DISLA APRN 401.1 HYPERTENSION, BENIGN ESSENTIAL 08/17/2012 POPE DO, TOSHIA K 401.1 HYPERTENSION, BENIGN ESSENTIAL 08/17/2012 POPE DO, TOSHIA K 401.1 HYPERTENSION, BENIGN ESSENTIAL 08/17/2012 POPE DO, TOSHIA K 401.1 HYPERTENSION, BENIGN ESSENTIAL 08/17/2012 TOSHIA BLISS, TOSHIA K 401.1 HYPERTENSION, BENIGN ESSENTIAL 08/17/2012 ELLEN DISLA APRN 401.1 HYPERTENSION, BENIGN ESSENTIAL 08/17/2012 POPE DO, TOSHIA K 401.1 HYPERTENSION, BENIGN ESSENTIAL 08/17/2012 POPE DO TOSHIA K 401.1 HYPERTENSION, BENIGN ESSENTIAL 08/17/2012 POPE DO, TOSHIA K 401.1 HYPERTENSION, BENIGN ESSENTIAL 08/17/2012 POPE DO, TOSHIA K 401.1 HYPERTENSION, BENIGN ESSENTIAL 08/17/2012 ELLEN DISLA APRN 401.1 HYPERTENSION, BENIGN ESSENTIAL 08/17/2012 ELLEN DISLA APRN 401.1 HYPERTENSION, BENIGN ESSENTIAL 08/17/2012 ELLEN DISLA APRN 401.1 HYPERTENSION, BENIGN ESSENTIAL 08/17/2012 POPE DO, TOSHIA K 401.1 HYPERTENSION, BENIGN ESSENTIAL 09/18/2012 783.21 JIMENA GHT LOSS 09/18/2012 783.21 JIMENA GHT LOSS 09/18/2012 783.21 JIMENA GHT LOSS 09/18/2012 783.21 JIMENA GHT LOSS 09/18/2012 783.21 JIMENA GHT LOSS 09/18/2012 ELLEN DISLA APRN 783.21 WEIGHT [...] ELLEN DISLA APRN 783.21 WEIGHT LOSS 09/18/2012 DISLAELLEN STORY APRN 783.21 WEIGHT LOSS 09/18/2012 POPE DO, TOSHIA K 783.21 WEIGHT LOSS 10/26/2012 786.05 ZULY RTNESS OF BREATH 10/26/2012 786.05 ZULY RTNESS OF BREATH 10/26/2012 786.05 ZULY RTNESS OF BREATH 10/26/2012 ELLEN DISLA APRN 786.05 SHORTNESS OF BREATH 10/26/2012 POPE DO, TOSHIA K 786.05 SHORTNESS OF BREATH 10/26/2012 POPE DO, TOSHIA K 786.05 SHORTNESS OF BREATH 10/26/2012 POPE DO, TOSHIA K 786.05 SHORTNESS OF BREATH 10/26/2012 POPE DO, TOSHIA K 786.05 SHORTNESS OF BREATH 10/26/2012 ELLEN DISLA APRN 786.05 SHORTNESS OF BREATH 10/26/2012 POPE DO, TOSHIA K 786.05 SHORTNESS OF BREATH 10/26/2012 POPE DO, TOSHIA K 786.05 SHORTNESS OF BREATH 10/26/2012 POPE DO, TOSHIA K 786.05 SHORTNESS OF BREATH 10/26/2012 POPE DO, TOSHIA K 786.05 SHORTNESS OF BREATH 10/26/2012 DISLA ELLEN MICHELLE 786.05 SHORTNESS OF BREATH 10/26/2012 DISLA ELLEN MICHELLE 786.05 SHORTNESS OF BREATH 10/26/2012 DISLA ELLEN MICHELLE 786.05 SHORTNESS OF BREATH 10/26/2012 POPE DO, TOSHIA K 786.05 SHORTNESS OF BREATH 01/20/2013 ELLEN DISLA APRN R 366.10 cataracts unspecified, right, left or both 01/20/2013 POPE DO, TOSHIA K 366.10 cataracts unspecified, right, left or both 01/20/2013 POPE DO, TOSHIA K 366.10 cataracts unspecified, right, left or both 01/20/2013 POPE DO, TOSHIA K 366.10 cataracts unspecified, right, left or both 01/20/2013 POPE DO, TOSHIA K 366.10 cataracts unspecified, right, left or both 01/20/2013 ELLEN DISLA APRN R 366.10 cataracts unspecified, right, left or both 01/20/2013 POPE DO, TOSHIA K 366.10 cataracts unspecified, right, left or both 01/20/2013 POPE DO, TOSHIA K 366.10 cataracts unspecified, right, left or both 01/20/2013 POPE DO, TOSHIA K 366.10 cataracts unspecified, right, left or both 01/20/2013 POPE DO, TOSHIA K 366.10 cataracts unspecified, right, left or both 01/20/2013 ELLEN DISLA APRN R 366.10 cataracts unspecified, right, left or both 01/20/2013 ELLEN DISLA APRN R 366.10 cataracts unspecified, right, left or both 01/20/2013 DISLA ELLEN MICHELLE R 366.10 cataracts unspecified, right, left or both 01/20/2013 POPE DOLESLEYA K 366.10 cataracts unspecified, right, left or both 03/09/2013 MODE [facility]ARR[facility], [facility] CCDS Ot 414.01 CORONARY ATHEROSCLEROSIS OF [place] CORON 03/09/2013 MODE MCGARRY, PAZ FACP CCDS Ot 458.9 HYPOTENSION NOS 03/09/2013 MO[facility], [facility] CCD[facility] Ot 493.90 ASTHMA, UNSPECIFIED 03/09/2013 MODE SCHILLING FACC, PAZ FACP CCDS Ot 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 03/09/2013 MODE SCHILLING FACC, PAZ FACP CCDS Ot 780.79 OTH MALAISE FATIGUE 03/09/2013 MODE SCHILLING FACC, ALI FACP CCDS Ot 786.09 RESPIRATORY ABNORM NEC 03/09/2013 MODE SCHILLING FACC, PAZ FACP CCDS Ot 786.59 CHEST PAIN NEC 03/09/2013 MODE SCHILLING FACC, PAZ FACP CCDS Ot V15.82 HISTORY OF TOBACCO USE 03/09/2013 MODE SCHILLING FACC, PAZ FACP CCDS Ot V58.69 OTH MED,LT,CURRENT USE 03/23/2013 TOSHIA BLISS TOSHIA K 786.50 CHEST PAIN 03/23/2013 TOSHIA BLISS TOSHIA K 786.50 CHEST PAIN 03/23/2013 TOSHIA BLISS TOSHIA K 786.50 CHEST PAIN 03/23/2013 ELLEN DISLA APRN 786.50 CHEST PAIN 03/23/2013 TOSHIA BLISS TOSHIA K 786.50 CHEST PAIN 03/23/2013 TOSHIA BLISS TOSHIA K 786.50 CHEST PAIN 03/23/2013 POPE DO TOSHIA K 786.50 CHEST PAIN 03/23/2013 TOSHIA BLISS TOSHIA K 786.50 CHEST PAIN 03/23/2013 ELLEN DISLA APRN 786.50 CHEST PAIN 03/23/2013 ELLEN DISLA APRN 786.50 CHEST PAIN 03/23/2013 ELLEN DISLA APRN 786.50 CHEST PAIN 03/23/2013 TOSHIA BLISS TOSHIA K 786.50 CHEST PAIN 04/05/2013 LESLEY POPE DOA K 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 04/05/2013 TOSHIA BLISS TOSHIA K 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 04/05/2013 ELLEN DISLA APRN 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 04/05/2013 LESLEY POPE DOA K 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 04/05/2013 TOSHIA BLISS TOSHIA K 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 04/05/2013 LESLEY POPE DOA K 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 04/05/2013 POPE DO, TOSHIA K 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 04/05/2013 NIGHAT BRAXTONN, ELLEN R 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 04/05/2013 NIGHAT BRAXTONN, ELLEN R 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 04/05/2013 DISLA MATCHER, ELELN R 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 04/05/2013 TOSHIA BLISS, TOSHIA K 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 9 06/08/2014 YAN LARIOS DO Ot 786. 09 06/23/2014 YAN LARIOS DO Ot 486 06/23/2014 YAN LARIOS DO M Ot 525. 9 06/23/2014 YAN LARIOS DO M Ot 786. 09 08/24/2014 LESLEY POPE DOA K 496 COPD 08/24/2014 POPE LESLEY BLISSA K 719.46 PAIN- KNEE 08/24/2014 LELSEY POPE DOA K 790.29 ABNORMAL GLUCOSE 01/17/2015 VIKI SAAVEDRA BROADCAST OPERATIONS TECHNICIAN Ot 786.09 01/17/2015 ELLEN DISLA CFNP Ot 786.59 01/17/2015 YAN LARIOS DO Ot 486 01/17/2015 YAN LARIOS DO Ot 525. 9 01/17/2015 YAN LARIOS DO M Ot 786. 09 01/31/2015 VIKI SAAVEDRA BROADCAST OPERATIONS TECHNICIAN Ot 786.09 01/31/2015 ELLEN DISLA CFFRANK Ot 786.59 01/31/2015 YAN LARIOS DO Ot 486 01/31/2015 RICYAN ROMO DO Ot 525. 9 01/31/2015 YAN LARIOS DO Ot 786. 09 01/31/2015 GARITA ERIC BLISS Dg Ot V72. 84 01/31/2015 GLORIA SIMONE BLISSDORIS Conte Ot 211. 3 BENIGN NEOPLASM LG BOWEL 01/31/2015 GARITA ERIC D Ot 553. 3 DIAPHRAGMATIC HERNIA 01/31/2015 GLORIA ERIC BLISS Ot 787. 91 DIARRHEA 01/31/2015 GARITA ERIC BLISS Ot 792. 1 ABN FIND-STOOL CONTENTS 02/23/2015 VIKI SAAVEDRA Ot 786.09 02/23/2015 ELLEN DISLA Ot 786.59 02/23/2015 RIC YAN BLISS Abiel Ot 486 02/23/2015 RIC YAN BLISS Ot 525. 9 02/23/2015 RIC YAN BLISS Ot 786. 09 02/23/2015 GARITA ERIC D Ot V72. 84 03/15/2015 GARITA ERIC BLISS Ot K62. 5 07/27/2015 MODE MCGARRY, ALI FACP CCDS Ot E78.0 07/27/2015 MODE MCGARRY, ALI FACP CCDS Ot I25.10 07/27/2015 MODE MCGARRY, ALI FACP CCDS Ot I65.23 07/27/2015 MODE SCHILLING FACC, ALI FACP CCDS Ot J43.8 07/27/2015 MODE SCHILLING FACC, ALI FACP CCDS Ot E78.0 07/27/2015 MODE SCHILLING FACC, ALI FACP CCDS Ot I25.10 07/27/2015 MODE MCGARRY, ALI FACP CCDS Ot I65.23 07/27/2015 MODE MCGARRY, ALI FACP CCDS Ot J43.8 07/27/2015 MODE SCHILLING FACC, ALI FACP CCDS Ot R06.09 08/02/2015 MODE SCHILLING FACC, ALI FACP CCDS Ot E78.0 08/02/2015 MODE SCHILLING FACC, ALI FACP CCDS Ot I25.10 08/02/2015 MODE SCHILLING FACC, ALI FACP CCDS Ot I65.23 08/02/2015 MODE SCHILLING FACC, ALI FACP CCDS Ot J43.8 08/03/2015 MODE SCHILLING [facility], ALI FACP CCDS Ot E78.0 08/03/2015 MODE SCHILLING [facility], ALI FACP CCDS Ot I25.10 08/03/2015 MODE SCHILLING [facility], ALI FACP CCDS Ot I65.23 08/03/2015 MODE SCHILLING [facility], ALI FACP CCDS Ot J43.8 08/03/2015 MODE SCHILLING [facility], ALI FACP CCDS Ot R06.09 01/22/2016 YAN LARIOS DO Ot J44. 9 CHRONIC OBSTRUCTIVE PULMONARY DISEASE, U 01/22/2016 YAN LARIOS DO Ot K44. 9 DIAPHRAGMATIC HERNIA WITHOUT OBSTRUCTION 01/22/2016 YAN LARIOS DO Ot R06. 09 OTHER FORMS OF DYSPNEA 02/12/2016 YAN LARIOS DO Ot J44. 9 CHRONIC OBSTRUCTIVE PULMONARY DISEASE, U 02/12/2016 YAN LARIOS DO Ot K44. 9 DIAPHRAGMATIC HERNIA WITHOUT OBSTRUCTION 02/12/2016 YAN LARIOS DO Ot R06. 09 OTHER FORMS OF DYSPNEA 02/16/2016 YAN LARISO DO Ot J44. 9 CHRONIC OBSTRUCTIVE PULMONARY DISEASE, U 02/16/2016 YAN LARIOS DO Ot K44. 9 DIAPHRAGMATIC HERNIA WITHOUT OBSTRUCTION 02/16/2016 YAN LARIOS DO Ot R06. 09 OTHER FORMS OF DYSPNEA 11/11/2016 ERIC GLORIA DO Ot R19. 5 OTHER FECAL ABNORMALITIES 11/11/2016 ERIC GLORIA DO Ot Z01.818 ENCOUNTER FOR OTHER PREPROCEDURAL EXAMIN 11/14/2016 VIKI SAAVEDRA BROADCAST OPERATIONS TECHNICIAN Ot 786.09 RESPIRATORY ABNORM NEC 11/14/2016 ELLEN DISLA Ot 786.59 CHEST PAIN NEC 11/14/2016 YAN LARIOS DO Ot 486 PNEUMONIA, ORGANISM NOS 11/14/2016 YAN LARIOS DO Ot 525. 9 DENTAL DISORDER NOS 11/14/2016 YAN LARIOS DO Ot 786. 09 RESPIRATORY ABNORM NEC 11/14/2016 ERIC GLORIA DO Ot V72. 84 EXAM PRE-OPERATIVE NOS 11/14/2016 ERIC GLORIA DO Ot K62. 5 HEMORRHAGE OF ANUS AND RECTUM 11/14/2016 [facility], ALI FACP CCDS Ot E78.0 PURE HYPERCHOLESTEROLEMIA 11/14/2016 [facility], ALI FACP CCDS Ot I25.10 ATHSCL HEART DISEASE OF [place] CORONARY 11/14/2016 [facility], ALI FACP CCDS Ot I65.23 OCCLUSION AND STENOSIS OF BILATERAL [place] 11/14/2016 [facility], ALI FACP CCDS Ot J43.8 OTHER EMPHYSEMA 11/14/2016 [facility], ALI FACP CCDS Ot R06.09 OTHER FORMS OF DYSPNEA 11/14/2016 [facility], ALI FACP CCDS Ot E78.0 PURE HYPERCHOLESTEROLEMIA 11/14/2016 [facility], ALI FACP CCDS Ot I25.10 ATHSCL HEART DISEASE OF [place] CORONARY 11/14/2016 [facility], ALI FACP CCDS Ot I65.23 OCCLUSION AND STENOSIS OF BILATERAL [place] 11/14/2016 [facility], ALI FACP CCDS Ot J43.8 OTHER EMPHYSEMA 11/14/2016 YAN LARIOS DO Ot J44. 9 CHRONIC OBSTRUCTIVE PULMONARY DISEASE, U 11/14/2016 YAN LARIOS DO Ot K44. 9 DIAPHRAGMATIC HERNIA WITHOUT OBSTRUCTION 11/14/2016 YAN LARIOS DO Ot R06. 09 OTHER FORMS OF DYSPNEA 11/14/2016 ERIC GLORIA DO Ot E11. 9 TYPE 2 DIABETES MELLITUS WITHOUT COMPLIC 11/14/2016 ERIC GLORIA DO Ot E78. 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 8 OTHER NONRHEUMATIC AORTIC VALVE DISORDER 11/14/2016 ERIC GLORIA DO Ot J44. 9 CHRONIC OBSTRUCTIVE PULMONARY DISEASE, U 11/14/2016 ERIC GLORIA DO Ot J45.909 UNSPECIFIED ASTHMA, UNCOMPLICATED 11/14/2016 ERIC GLORIA DO Ot K21. 9 GASTRO-ESOPHAGEAL REFLUX DISEASE WITHOUT 11/14/2016 ERIC GLORIA DO Ot K64. 8 OTHER HEMORRHOIDS 11/14/2016 ERIC GLORIA DO Ot R19. 5 OTHER FECAL ABNORMALITIES 11/14/2016 ERIC GLORIA DO Ot Z79. 84 BUSINESS CONSULT (CURRENT) USE OF ORAL HYPOGLYC 11/14/2016 ERIC GLORIA DO Ot Z79.899 OTHER HALF-WAY (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 THERAPY 11/20/2016 ERIC GLORIA DO Ot E11. 9 TYPE 2 DIABETES MELLITUS WITHOUT COMPLIC 11/20/2016 ERIC GLORIA DO Ot E78. 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 8 OTHER NONRHEUMATIC AORTIC VALVE DISORDER 11/20/2016 ERIC GLORIA DO Ot J44. 9 CHRONIC OBSTRUCTIVE PULMONARY DISEASE, U 11/20/2016 ERIC GLORIA DO Ot J45.909 UNSPECIFIED ASTHMA, UNCOMPLICATED 11/20/2016 ERIC GLORIA DO Ot K21. 9 GASTRO-ESOPHAGEAL REFLUX DISEASE WITHOUT 11/20/2016 ERIC GLORIA DO Ot K64. 8 OTHER HEMORRHOIDS 11/20/2016 ERIC GLORIA DO Ot R19. 5 OTHER FECAL ABNORMALITIES 11/20/2016 ERIC GLORIA DO Ot Z79. 84 HALF-WAY (CURRENT) USE OF ORAL HYPOGLYC 11/20/2016 ERIC GLORIA DO Ot Z79.899 OTHER HALF-WAY (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 THERAPY 01/14/2017 ERIC GLORIA DO Ot K42. 9 UMBILICAL HERNIA WITHOUT OBSTRUCTION OR 01/14/2017 ERIC GLORIA DO Ot Z01.812 ENCOUNTER FOR PREPROCEDURAL LABORATORY E 01/16/2017 ERIC GLORIA DO Ot E11. 9 TYPE 2 DIABETES MELLITUS WITHOUT COMPLIC 01/16/2017 ERIC GLORIA DO Ot E78. 5 HYPERLIPIDEMIA, UNSPECIFIED 01/16/2017 ERIC GLORIA DO Ot I25. 10 ATHSCL HEART DISEASE OF [place] CORONARY 01/16/2017 ERIC GLORIA DO Ot I35. 8 OTHER NONRHEUMATIC AORTIC VALVE DISORDER 01/16/2017 ERIC GLORIA DO Ot J44. 9 CHRONIC OBSTRUCTIVE PULMONARY DISEASE, U 01/16/2017 ERIC GLORIA DO Ot J45.909 UNSPECIFIED ASTHMA, UNCOMPLICATED 01/16/2017 GLORIAERIC MANCINI DO D Ot K43. 2 INCISIONAL HERNIA WITHOUT OBSTRUCTION OR 01/16/2017 GLORIA ERIC BLISS D Ot Z79.899 OTHER BUSINESS CONSULT (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 THERAPY 01/16/2017 SIMONE GLORIA DOTT D Ot Z87.891 PERSONAL HISTORY OF NICOTINE DEPENDENCE 01/17/2017 SIMONE GLORIA DOTT D Ot E11. 9 TYPE 2 DIABETES MELLITUS WITHOUT COMPLIC 01/17/2017 ERIC GLORIA DO D Ot E78. 5 HYPERLIPIDEMIA, UNSPECIFIED 01/17/2017 SIMONE GLORIA DOTT D Ot I25. 10 ATHSCL HEART DISEASE OF [place] CORONARY 01/17/2017 SIMONE GLORIA DOTT Dg Ot I35. 8 OTHER NONRHEUMATIC AORTIC VALVE DISORDER 01/17/2017 ERIC GLORIA DO Ot J44. 9 CHRONIC OBSTRUCTIVE PULMONARY DISEASE, U 01/17/2017 ERIC GLORIA DO Ot J45.909 UNSPECIFIED ASTHMA, UNCOMPLICATED 01/17/2017 ERIC GLORIA DO Ot K43. 2 INCISIONAL HERNIA WITHOUT OBSTRUCTION OR 01/17/2017 GLORIA ERIC BLISS Ot Z79.899 OTHER BUSINESS CONSULT (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 THERAPY 01/17/2017 ERIC GLORIA DO Ot Z87.891 PERSONAL HISTORY OF NICOTINE DEPENDENCE 05/23/2017 MODE SCHILLING FACC, PAZ FACP CCDS Ot I73.9 PERIPHERAL VASCULAR DISEASE, UNSPECIFIED 05/27/2017 MODE SCHILLING FACC, PAZ FACP CCDS Ot I73.9 PERIPHERAL VASCULAR DISEASE, UNSPECIFIED 05/27/2017 MODE SCHILLING FACC, PAZ FACP CCDS Ot I73.9 PERIPHERAL VASCULAR DISEASE, UNSPECIFIED 06/11/2017 MODE SCHILLING FACC, PAZ FACP CCDS Ot E78.4 OTHER HYPERLIPIDEMIA 06/11/2017 MODE SCHILLING FACC, PAZ FACP CCDS Ot I25.10 ATHSCL HEART DISEASE [place] CORONARY 06/11/2017 MODE SCHILLING FACC, PAZ FACP CCDS Ot I65.23 OCCLUSION AND STENOSIS OF BILATERAL [place] 06/11/2017 MODE SCHILLING FACC, PAZ FACP CCDS Ot R06.09 OTHER FORMS OF DYSPNEA 06/11/2017 MODE SCHILLING FACC, PAZ FACP CCDS Ot R07.89 OTHER CHEST PAIN 06/17/2017 MODE MD FACC, ALI FACP CCDS Ot I25.10 ATHSCL HEART DISEASE [place] CORONARY 06/17/2017 MODE SCHILLING FACC, ALI FACP CCDS Ot I25.10 ATHSCL HEART DISEASE [place] CORONARY 06/17/2017 MDOE SCHILLING FACC, ALI FACP CCDS Ot I25.10 ATHSCL HEART DISEASE [place] CORONARY 06/24/2017 MODE SCHILLING FACC, ALI FACP CCDS Ot I25.10 ATHSCL HEART DISEASE [place] CORONARY 06/25/2017 MODE SCHILLING FACC, ALI FACP CCDS Ot E78.5 HYPERLIPIDEMIA, UNSPECIFIED 06/25/2017 MODE SCHILLING FACC, ALI FACP CCDS Ot I25.10 ATHSCL HEART DISEASE [place] CORONARY 06/25/2017 MODE SCHILLING FACC, ALI FACP CCDS Ot I65.23 OCCLUSION AND STENOSIS OF [place] 06/25/2017 MODE SCHILLING FACC, ALI FACP CCDS Ot I73.9 PERIPHERAL VASCULAR DISEASE, UNSPECIFIED 06/25/2017 MODE SCHILLING FACC, ALI FACP CCDS Ot R06.09 OTHER FORMS OF DYSPNEA 06/25/2017 MODE SCHILLING FACC, ALI FACP CCDS Ot E78.5 HYPERLIPIDEMIA, UNSPECIFIED 06/25/2017 MODE SCHILLING FACC, ALI FACP CCDS Ot I25.10 ATHSCL HEART DISEASE [place] CORONARY 06/25/2017 MODE SCHILLING FACC, ALI FACP CCDS Ot I65.23 OCCLUSION AND STENOSIS OF [place] 06/25/2017 MODE SCHILLING FACC, ALI FACP CCDS Ot I73.9 PERIPHERAL VASCULAR DISEASE, UNSPECIFIED 06/25/2017 MODE CMGARRYC, ALI FACP CCDS Ot R06.09 OTHER FORMS OF DYSPNEA 06/29/2017 ANIYAH CORBETT MD Ot E78.00 PURE HYPERCHOLESTEROLEMIA, UNSPECIFIED 06/29/2017 ANIYAH CORBETT MD Ot F41.9 ANXIETY DISORDER, UNSPECIFIED 06/29/2017 ANIYAH CORBETT MD Ot G43.909 MIGRAINE, UNSP, NOT INTRACTABLE, WITHOUT 06/29/2017 ANIYAH CORBETT MD Ot J44.9 CHRONIC OBSTRUCTIVE PULMONARY DISEASE, U 06/29/2017 ANIYAH CORBETT MD Ot K21.9 GASTRO-ESOPHAGEAL REFLUX DISEASE WITHOUT 06/29/2017 ANIYAH CORBETT MD, Ot N39.0 URINARY TRACT INFECTION, SITE NOT SPECIF 06/29/2017 ANIYAH CORBETT MD, Ot R19.7 DIARRHEA, UNSPECIFIED 06/29/2017 ANIYAH CORBETT MD Ot R73.09 OTHER ABNORMAL GLUCOSE 06/29/2017 ANIYAH CORBETT MD Ot Z79.82 BUSINESS CONSULT (CURRENT) USE OF ASPIRIN 06/29/2017 ANIYAH CORBETT MD, Ot Z79.84 BUSINESS CONSULT (CURRENT) USE OF ORAL HYPOGLYC 06/29/2017 ANIYAH CORBETT MD Ot Z86.12 PERSONAL HISTORY OF POLIOMYELITIS 06/29/2017 ANIYAH CORBETT MD, Ot Z87.01 PERSONAL HISTORY OF PNEUMONIA (RECURRENT 06/29/2017 ANIYAH CORBETT MD, Ot Z87.891 PERSONAL HISTORY OF NICOTINE DEPENDENCE 06/29/2017 ANIYAH CORBETT MD Ot Z88.2 ALLERGY STATUS TO SULFONAMIDES STATUS 06/29/2017 ANIYAH CORBETT MD Ot Z98.51 TUBAL LIGATION STATUS 07/01/2017 ANIYAH CORBETT MD Ot E78.00 PURE HYPERCHOLESTEROLEMIA, UNSPECIFIED 07/01/2017 ANIYAH CORBETT MD Ot F41.9 ANXIETY DISORDER, UNSPECIFIED 07/01/2017 ANIYAH CORBETT MD Ot G43.909 MIGRAINE, UNSP, NOT INTRACTABLE, WITHOUT 07/01/2017 ANIYAH CORBETT MD Ot J44.9 CHRONIC OBSTRUCTIVE PULMONARY DISEASE, U 07/01/2017 ANIYAH CORBETT MD Ot K21.9 GASTRO-ESOPHAGEAL REFLUX DISEASE WITHOUT 07/01/2017 ANIYAH CORBETT MD, Ot N39.0 URINARY TRACT INFECTION, SITE NOT SPECIF 07/01/2017 ANIYAH CORBETT MD Ot R19.7 DIARRHEA, UNSPECIFIED 07/01/2017 ANIYAH CORBETT MD Ot R73.09 OTHER ABNORMAL GLUCOSE 07/01/2017 ANIYAH CORBETT MD Ot Z79.82 BUSINESS CONSULT (CURRENT) USE OF ASPIRIN 07/01/2017 ANIYAH CORBETT MD Ot Z79.84 BUSINESS CONSULT (CURRENT) USE OF ORAL HYPOGLYC 07/01/2017 ANIYAH CORBETT MD Ot Z86.12 PERSONAL HISTORY OF POLIOMYELITIS 07/01/2017 ANIYAH CORBETT MD Ot Z87.01 PERSONAL HISTORY OF PNEUMONIA (RECURRENT 07/01/2017 ANIYAH CORBETT MD Ot Z87.891 PERSONAL HISTORY OF NICOTINE DEPENDENCE 07/01/2017 ANIYAH CORBETT MD Ot Z88.2 ALLERGY STATUS TO SULFONAMIDES STATUS 07/01/2017 ANIYAH CORBETT MD Ot Z98.51 TUBAL LIGATION STATUS 07/09/2017 MODE SCHILLING FACC, ALI FACP CCDS Ot E78.4 OTHER HYPERLIPIDEMIA 07/09/2017 MODE SCHILLIGN FACC, ALI FACP CCDS Ot I25.10 ATHSCL HEART DISEASE [place] CORONARY 07/09/2017 MODE SCHILLING FACC, ALI FACP CCDS Ot I65.23 OCCLUSION AND STENOSIS OF [place] 07/09/2017 MODE SCHILLING FACC, ALI FACP CCDS Ot R06.09 OTHER FORMS OF DYSPNEA 07/09/2017 MODE SCHILLING FACC, ALI FACP CCDS Ot R07.89 OTHER CHEST PAIN 07/15/2017 MODE SCHILLING FACC, ALI FACP CCDS Ot E78.5 HYPERLIPIDEMIA, UNSPECIFIED 07/15/2017 MODE MCGARRYC, ALI FACP CCDS Ot I25.10 ATHSCL HEART DISEASE [place] CORONARY 07/15/2017 MODE SCHILLING FACJenn, ALI FACP CCDS Ot I65.23 OCCLUSION AND STENOSIS OF [place] 07/15/2017 MODE SCHILLING FACC, ALI FACP CCDS Ot I73.9 PERIPHERAL VASCULAR DISEASE, UNSPECIFIED 07/15/2017 MODE SCHILLING FACC, ALI FACP CCDS Ot R06.09 OTHER FORMS OF DYSPNEA 11/01/2017 MODE MCGARRY, ALI FACP CCDS Ot E78.4 OTHER HYPERLIPIDEMIA 11/01/2017 MODE SCHILLING FACC, ALI FACP CCDS Ot I25.10 ATHSCL HEART DISEASE [place] CORONARY 11/01/2017 MODE SCHILLING FACC, ALI FACP CCDS Ot I65.23 OCCLUSION AND STENOSIS OF [place] 11/01/2017 MODE SCHILLING FACC, ALI FACP CCDS Ot R06.09 OTHER FORMS OF DYSPNEA 11/01/2017 MODE MCGARRYC, ALI FACP CCDS Ot R07.89 OTHER CHEST PAIN 05/11/2018 ELLEN DISLA CFFRANK Ot 786.59 CHEST PAIN NEC 05/11/2018 YAN LARIOS DO Ot 486 PNEUMONIA, ORGANISM NOS 05/11/2018 YAN LARIOS DO Ot 525. 9 DENTAL DISORDER NOS 05/11/2018 YAN LARIOS DO Ot 786. 09 RESPIRATORY ABNORM NEC 05/11/2018 ERIC GLORIA DO Ot V72. 84 EXAM PRE-OPERATIVE NOS 05/11/2018 ERIC GLORIA DO Ot K62. 5 HEMORRHAGE OF ANUS AND RECTUM 05/11/2018 MODE SCHILLING FACC, ALI FACP CCDS Ot E78.0 PURE HYPERCHOLESTEROLEMIA 05/11/2018 MODE SCHILLING FACC, ALI FACP CCDS Ot I25.10 ATHSCL HEART DISEASE [place] CORONARY 05/11/2018 MODE SCHILLING FACC, ALI FACP CCDS Ot I65.23 OCCLUSION AND STENOSIS OF [place] 05/11/2018 MODE SCHILLING FACC, ALI FACP CCDS Ot J43.8 OTHER EMPHYSEMA 05/11/2018 MODE SCHILLING FACC, ALI FACP CCDS Ot R06.09 OTHER FORMS OF DYSPNEA 05/11/2018 MODE SCHILLING FACC, ALI FACP CCDS Ot E78.0 PURE HYPERCHOLESTEROLEMIA 05/11/2018 MODE SCHILLING FACC, ALI FACP CCDS Ot I25.10 ATHSCL HEART DISEASE [place] CORONARY 05/11/2018 MODE SCHILLING FACC, ALI FACP CCDS Ot I65.23 OCCLUSION AND STENOSIS OF [place] 05/11/2018 MODE MCGARRYC, ALI FACP CCDS Ot J43.8 OTHER EMPHYSEMA 05/11/2018 YAN LARIOS DO Ot J44. 9 CHRONIC OBSTRUCTIVE PULMONARY DISEASE, U 05/11/2018 YAN LARIOS DO Ot K44. 9 DIAPHRAGMATIC HERNIA WITHOUT OBSTRUCTION 05/11/2018 YAN LARIOS DO Ot R06. 09 OTHER FORMS OF DYSPNEA 05/11/2018 MODE MCGARRYC, ALI FACP CCDS Ot E78.5 HYPERLIPIDEMIA, UNSPECIFIED 05/11/2018 MODE SCHILLING FACC, ALI FACP CCDS Ot I25.10 ATHSCL HEART DISEASE [place] CORONARY 05/11/2018 MODE SCHILLING FACC, ALI FACP CCDS Ot I65.23 OCCLUSION AND STENOSIS OF [place] 05/11/2018 MODE SCHILLING FACC, ALI FACP CCDS Ot I73.9 PERIPHERAL VASCULAR DISEASE, UNSPECIFIED 05/11/2018 MODE SCHILLING FACC, ALI FACP CCDS Ot R06.09 OTHER FORMS OF DYSPNEA 05/11/2018 MODE SCHILLING FACC, ALI FACP CCDS Ot E78.4 OTHER HYPERLIPIDEMIA 05/11/2018 MODE SCHILLING FACJenn, ALI FACP CCDS Ot I25.10 ATHSCL HEART DISEASE [place] CORONARY 05/11/2018 MODE SCHILLING FACJenn, ALI FACP CCDS Ot I65.23 OCCLUSION AND STENOSIS OF [place] 05/11/2018 MODE SCHILLING FACC, ALI FACP CCDS Ot R06.09 OTHER FORMS OF DYSPNEA 05/11/2018 MODE SCHILLING FACC, ALI FACP CCDS Ot R07.89 OTHER CHEST PAIN 05/11/2018 ELLEN DISLA Ot 786.59 CHEST PAIN NEC 05/11/2018 YAN LARIOS DO Ot 486 PNEUMONIA, ORGANISM NOS 05/11/2018 YAN LARIOS DO Ot 525. 9 DENTAL DISORDER NOS 05/11/2018 YAN LARIOS DO Ot 786. 09 RESPIRATORY ABNORM NEC 05/11/2018 ERIC GLORIA DO Ot V72. 84 EXAM PRE-OPERATIVE NOS 05/11/2018 ERIC GLORIA DO Ot K62. 5 HEMORRHAGE OF ANUS AND RECTUM 05/11/2018 MODE SCHILLING FACC, ALI FACP CCDS Ot E78.0 PURE HYPERCHOLESTEROLEMIA 05/11/2018 MODE SCHILLING FACC, ALI FACP CCDS Ot I25.10 ATHSCL HEART DISEASE [place] CORONARY 05/11/2018 MODE SCHILLING FACC, ALI FACP CCDS Ot I65.23 OCCLUSION AND STENOSIS OF [place] 05/11/2018 MODE SCHILLING FACC, ALI FACP CCDS Ot J43.8 OTHER EMPHYSEMA 05/11/2018 MODE SCHILLING FACJenn, ALI FACP CCDS Ot R06.09 OTHER FORMS OF DYSPNEA 05/11/2018 MODE SCHILLING FACC, ALI FACP CCDS Ot E78.0 PURE HYPERCHOLESTEROLEMIA 05/11/2018 MODE SCHILLING FACC, ALI FACP CCDS Ot I25.10 ATHSCL HEART DISEASE [place] CORONARY 05/11/2018 MODE SCHILLING FACC, ALI FACP CCDS Ot I65.23 OCCLUSION AND STENOSIS OF [place] 05/11/2018 MODE MD FACC, ALI FACP CCDS Ot J43.8 OTHER EMPHYSEMA 05/11/2018 YAN LARIOS DO Ot J44. 9 CHRONIC OBSTRUCTIVE PULMONARY DISEASE, U 05/11/2018 YAN LARIOS DO Ot K44. 9 DIAPHRAGMATIC HERNIA WITHOUT OBSTRUCTION 05/11/2018 YAN LARIOS DO Ot R06. 09 OTHER FORMS OF DYSPNEA 05/11/2018 MODE SCHILLING FACC, ALI FACP CCDS Ot E78.5 HYPERLIPIDEMIA, UNSPECIFIED 05/11/2018 MODE SCHILLING FACC, ALI FACP CCDS Ot I25.10 ATHSCL HEART DISEASE [place] CORONARY 05/11/2018 MODE SCHILLING FACC, ALI FACP CCDS Ot I65.23 OCCLUSION AND STENOSIS OF [place] 05/11/2018 MODE SCHILLING FACC, ALI FACP CCDS Ot I73.9 PERIPHERAL VASCULAR DISEASE, UNSPECIFIED 05/11/2018 MODE SCHILLING FACC, ALI FACP CCDS Ot R06.09 OTHER FORMS OF DYSPNEA 05/11/2018 MODE SCHILLING FACC, ALI FACP CCDS Ot E78.4 OTHER HYPERLIPIDEMIA 05/11/2018 MODE SCHILLING FACC, ALI FACP CCDS Ot I25.10 ATHSCL HEART DISEASE [place] CORONARY 05/11/2018 MODE SCHILLING FACC, ALI FACP CCDS Ot I65.23 OCCLUSION AND STENOSIS OF [place] 05/11/2018 MODE SCHILLING FACC, ALI FACP CCDS Ot R06.09 OTHER FORMS OF DYSPNEA 05/11/2018 MODE SCHILLING FACC, ALI FACP CCDS Ot R07.89 OTHER CHEST PAIN 05/11/2018 JOSE ALSTON Ot E78.00 PURE HYPERCHOLESTEROLEMIA, UNSPECIFIED 05/11/2018 JOSE ALSTON Ot F41.9 ANXIETY DISORDER, UNSPECIFIED 05/11/2018 JOSE ALSTON Ot J06.9 ACUTE UPPER RESPIRATORY INFECTION, UNSPE 05/11/2018 JOSE ALSTON Ot J44.9 CHRONIC OBSTRUCTIVE PULMONARY DISEASE, U 05/11/2018 JOSE ALSTON Ot K21.9 GASTRO-ESOPHAGEAL REFLUX DISEASE WITHOUT 05/11/2018 JOSE ALSTON Ot R06.02 SHORTNESS OF BREATH 05/11/2018 JOSE ALSTON Ot Z79.82 BUSINESS CONSULT (CURRENT) USE OF ASPIRIN 05/11/2018 JOSE ALSTON Ot Z79.84 HALF-WAY (CURRENT) USE OF ORAL HYPOGLYC 05/11/2018 ELSY ALSTONIS Ot Z87.01 PERSONAL HISTORY OF PNEUMONIA (RECURRENT 05/11/2018 ELSY ALSTONIS Ot Z87.19 PERSONAL HISTORY OF OTHER DISEASES OF 05/11/2018 ELSY ALSTONIS Ot Z87.440 PERSONAL HISTORY OF URINARY (TRACT) INFE 05/11/2018 ELSY ALSTONIS Ot Z87.891 PERSONAL HISTORY OF NICOTINE DEPENDENCE 05/11/2018 ELSY ALSTONIS Ot Z88.2 ALLERGY STATUS TO SULFONAMIDES STATUS 05/11/2018 ELSY ASLTONIS Ot Z93.8 OTHER ARTIFICIAL OPENING STATUS 05/11/2018 ELSY ALSTONIS Ot Z98.51 TUBAL LIGATION STATUS 05/14/2018 ELSY ALSTONIS Ot E78.00 PURE HYPERCHOLESTEROLEMIA, UNSPECIFIED 05/14/2018 ELSY ALSTONIS Ot F41.9 ANXIETY DISORDER, UNSPECIFIED 05/14/2018 JOSE ALSTON Ot J06.9 ACUTE UPPER RESPIRATORY INFECTION, UNSPE 05/14/2018 JOSE ALSTON Ot J44.9 CHRONIC OBSTRUCTIVE PULMONARY DISEASE, U 05/14/2018 JOSE ALSTON Ot K21.9 GASTRO-ESOPHAGEAL REFLUX DISEASE WITHOUT 05/14/2018 ELSY ALSTONIS Ot R06.02 SHORTNESS OF BREATH 05/14/2018 JOSE ALSTON Ot Z79.82 HALF-WAY (CURRENT) USE OF ASPIRIN 05/14/2018 ELSY ALSTONIS Ot Z79.84 HALF-WAY (CURRENT) USE OF ORAL HYPOGLYC 05/14/2018 JOSE ALSTON Ot Z87.01 PERSONAL HISTORY OF PNEUMONIA (RECURRENT 05/14/2018 JOSE ALSTON Ot Z87.19 PERSONAL HISTORY OF OTHER DISEASES OF 05/14/2018 JOSE ALSTON Ot Z87.440 PERSONAL HISTORY OF URINARY (TRACT) INFE 05/14/2018 JOSE ALSTON Ot Z87.891 PERSONAL HISTORY OF NICOTINE DEPENDENCE 05/14/2018 JOSE ALSTON Ot Z88.2 ALLERGY STATUS TO SULFONAMIDES STATUS 05/14/2018 ELSY ALSTONIS Ot Z93.8 OTHER ARTIFICIAL OPENING STATUS 05/14/2018 ELSY ALSTONIS Ot Z98.51 TUBAL LIGATION STATUS 05/17/2018 ELSY ALSTONIS Ot E78.00 PURE HYPERCHOLESTEROLEMIA, UNSPECIFIED 05/17/2018 JOSE ALSTON Ot F41.9 ANXIETY DISORDER, UNSPECIFIED 05/17/2018 JOSE ALSTON Ot J06.9 ACUTE UPPER RESPIRATORY INFECTION, UNSPE 05/17/2018 JOSE ALSTON Ot J44.9 CHRONIC OBSTRUCTIVE PULMONARY DISEASE, U 05/17/2018 JOSE ALSTON Ot K21.9 GASTRO-ESOPHAGEAL REFLUX DISEASE WITHOUT 05/17/2018 JOSE ALSTON Ot R06.02 SHORTNESS OF BREATH 05/17/2018 JOSE ALSTON Ot Z79.82 HALF-WAY (CURRENT) USE OF ASPIRIN 05/17/2018 JOSE ALSTON Ot Z79.84 HALF-WAY (CURRENT) USE OF ORAL HYPOGLYC 05/17/2018 JOSE ALSTON Ot Z87.01 PERSONAL HISTORY OF PNEUMONIA (RECURRENT 05/17/2018 JOSE ALSTON Ot Z87.19 PERSONAL HISTORY OF OTHER DISEASES OF TH 05/17/2018 JOSE ALSTON Ot Z87.440 PERSONAL HISTORY OF URINARY (TRACT) INFE 05/17/2018 JOSE ALSTON Ot Z87.891 PERSONAL HISTORY OF NICOTINE DEPENDENCE 05/17/2018 JOSE ALSTON Ot Z88.2 ALLERGY STATUS TO SULFONAMIDES STATUS 05/17/2018 JOSE ALSTON Ot Z93.8 OTHER ARTIFICIAL OPENING STATUS 05/17/2018 JOSE ALSTON Ot Z98.51 TUBAL LIGATION STATUS 05/25/2018 MODE SCHILLING [facility], PAZ DEE CCDS Ot E11.9 TYPE 2 DIABETES MELLITUS WITHOUT COMPLIC 06/02/2018 LAKEISHA LAKE MATCHER Ot E11.9 TYPE 2 DIABETES MELLITUS WITHOUT COMPLIC 06/02/2018 LAKEISHA LAKE APRN Ot J21.8 ACUTE BRONCHIOLITIS DUE TO OTHER SPECIFI 06/02/2018 LAKEISHA LAKE APRN Ot J44.9 CHRONIC OBSTRUCTIVE PULMONARY DISEASE, U 06/02/2018 LAKEISHA LKAE APRN Ot K44.9 DIAPHRAGMATIC HERNIA WITHOUT OBSTRUCTION 06/11/2018 MODE SCHILLING FACC, PAZ DEE CCDS Ot E11.9 TYPE 2 DIABETES MELLITUS WITHOUT COMPLIC 06/16/2018 VIKI SAAVEDRA BROADCAST OPERATIONS TECHNICIAN Ot E87.6 HYPOKALEMIA 06/24/2018 VIKI SAAVEDRA BROADCAST OPERATIONS TECHNICIAN Ot E83.42 HYPOMAGNESEMIA 07/13/2018 LAKEISHA LAKE APRN Ot E11.9 TYPE 2 DIABETES MELLITUS WITHOUT COMPLIC 07/13/2018 LAKEISHA LAKE APRN Ot J21.8 ACUTE BRONCHIOLITIS DUE TO OTHER SPECIFI 07/13/2018 LAKEISHA LAKE APRN Ot J44.9 CHRONIC OBSTRUCTIVE PULMONARY DISEASE, U 07/13/2018 LAKEISHA LAKE APRN Ot K44.9 DIAPHRAGMATIC HERNIA WITHOUT OBSTRUCTION 07/14/2018 VIKI SAAVEDRA Ot E83.42 HYPOMAGNESEMIA 07/17/2018 ELLEN DISLA Ot 786.59 CHEST PAIN NEC 07/17/2018 YAN LARIOS DO Ot 486 PNEUMONIA, ORGANISM NOS 07/17/2018 YAN LARIOS DO Ot 525. 9 DENTAL DISORDER NOS 07/17/2018 YAN LARIOS DO Ot 786. 09 RESPIRATORY ABNORM NEC 07/17/2018 ERIC GLORIA DO Ot V72. 84 EXAM PRE-OPERATIVE NOS 07/17/2018 ERIC GLORIA DO Ot K62. 5 HEMORRHAGE OF ANUS AND RECTUM 07/17/2018 MODE SCHILLING FACC, ALI FACP CCDS Ot E78.0 PURE HYPERCHOLESTEROLEMIA 07/17/2018 MODE SCHILLING FACC, ALI FACP CCDS Ot I25.10 ATHSCL HEART DISEASE [place] CORONARY 07/17/2018 MODE SCHILLING FACC, ALI FACP CCDS Ot I65.23 OCCLUSION AND STENOSIS OF [place] 07/17/2018 MODE SCHILLING FACC, ALI FACP CCDS Ot J43.8 OTHER EMPHYSEMA 07/17/2018 MODE SCHILLING FACC, ALI FACP CCDS Ot R06.09 OTHER FORMS OF DYSPNEA 07/17/2018 MODE SCHILLING FACC, ALI FACP CCDS Ot E78.0 PURE HYPERCHOLESTEROLEMIA 07/17/2018 MODE SCHILLING FACC, ALI FACP CCDS Ot I25.10 ATHSCL HEART DISEASE [place] CORONARY 07/17/2018 MODE SCHILLING FACC, ALI FACP CCDS Ot I65.23 OCCLUSION AND STENOSIS OF [place] 07/17/2018 MODE SCHILLING FACC, ALI FACP CCDS Ot J43.8 OTHER EMPHYSEMA 07/17/2018 YAN LARIOS DO Ot J44. 9 CHRONIC OBSTRUCTIVE PULMONARY DISEASE, U 07/17/2018 YAN LARIOS DO Ot K44. 9 DIAPHRAGMATIC HERNIA WITHOUT OBSTRUCTION 07/17/2018 YAN LARIOS DO Ot R06. 09 OTHER FORMS OF DYSPNEA 07/17/2018 MODE SCHILLING FACC, ALI FACP CCDS Ot E78.5 HYPERLIPIDEMIA, UNSPECIFIED 07/17/2018 MODE MD FACC, ALI FACP CCDS Ot I25.10 ATHSCL HEART DISEASE [place] CORONARY 07/17/2018 MODE SCHILLING FACC, ALI FACP CCDS Ot I65.23 OCCLUSION AND STENOSIS OF [place] 07/17/2018 MODE MD FACC, ALI FACP CCDS Ot I73.9 PERIPHERAL VASCULAR DISEASE, UNSPECIFIED 07/17/2018 MODE SCHILLING FACC, ALI FACP CCDS Ot R06.09 OTHER FORMS OF DYSPNEA 07/17/2018 MODE SCHILLING FACJenn, ALI FACP CCDS Ot E78.4 OTHER HYPERLIPIDEMIA 07/17/2018 MODE SCHILLING FACC, ALI FACP CCDS Ot I25.10 ATHSCL HEART DISEASE [place] CORONARY 07/17/2018 MODE SCHILLING FACJenn, ALI FACP CCDS Ot I65.23 OCCLUSION AND STENOSIS OF [place] 07/17/2018 MODE SCHILLING FACJenn, ALI FACP CCDS Ot R06.09 OTHER FORMS OF DYSPNEA 07/17/2018 MODE SCHILLING FACC, ALI FACP CCDS Ot R07.89 OTHER CHEST PAIN 07/17/2018 LAKEISHA LAKE APRN Ot E11.9 TYPE 2 DIABETES MELLITUS WITHOUT COMPLIC 07/17/2018 LAKEISHA LAKE APRN Ot J21.8 ACUTE BRONCHIOLITIS DUE TO OTHER SPECIFI 07/17/2018 LAKEISHA LAKE APRN Ot J44.9 CHRONIC OBSTRUCTIVE PULMONARY DISEASE, U 07/17/2018 LAKEISHA LAKE APRN Ot K44.9 DIAPHRAGMATIC HERNIA WITHOUT OBSTRUCTION 07/17/2018 MODE SCHILLING FACC, ALI FACP CCDS Ot E11.9 TYPE 2 DIABETES MELLITUS WITHOUT COMPLIC 07/17/2018 VIKI SAAVEDRA BROADCAST OPERATIONS TECHNICIAN Ot E87.6 HYPOKALEMIA 07/17/2018 VIKI SAAVEDRA BROADCAST OPERATIONS TECHNICIAN Ot E83.42 HYPOMAGNESEMIA 07/17/2018 MODE SCHILLING FACC, ALI FACP CCDS Ot E78.4 OTHER HYPERLIPIDEMIA 07/17/2018 MODE SCHILLING FACC, ALI FACP CCDS Ot I25.10 ATHSCL HEART DISEASE [place] CORONARY 07/17/2018 MODE SCHILLING FACC, ALI FACP CCDS Ot I65.23 OCCLUSION AND STENOSIS OF [place] 07/17/2018 MODE SCHILLING FACC, ALI FACP CCDS Ot R06.09 OTHER FORMS OF DYSPNEA 07/17/2018 MODE SCHILLING FACC, ALI FACP CCDS Ot R07.89 OTHER CHEST PAIN 08/27/2018 ELLEN DISLA CFFRANK Ot 786.59 CHEST PAIN NEC 08/27/2018 YAN LARIOS DO Ot 486 PNEUMONIA, ORGANISM NOS 08/27/2018 YAN LARIOS DO Ot 525. 9 DENTAL DISORDER NOS 08/27/2018 YAN LARIOS DO Ot 786. 09 RESPIRATORY ABNORM NEC 08/27/2018 ERIC GLORIA DO Ot V72. 84 EXAM PRE-OPERATIVE NOS 08/27/2018 ERIC GLORIA DO Ot K62. 5 HEMORRHAGE OF ANUS AND RECTUM 08/27/2018 MODE SCHILLING FACC, ALI FACP CCDS Ot E78.0 PURE HYPERCHOLESTEROLEMIA 08/27/2018 MODE SCHILLING FACC, ALI FACP CCDS Ot I25.10 ATHSCL HEART DISEASE [place] CORONARY 08/27/2018 MODE SCHILLING FACC, ALI FACP CCDS Ot I65.23 OCCLUSION AND STENOSIS OF [place] 08/27/2018 MODE SCHILLING FACC, ALI FACP CCDS Ot J43.8 OTHER EMPHYSEMA 08/27/2018 MODE SCHILLING FACC, ALI FACP CCDS Ot R06.09 OTHER FORMS OF DYSPNEA 08/27/2018 MODE SCHILLING FACC, ALI FACP CCDS Ot E78.0 PURE HYPERCHOLESTEROLEMIA 08/27/2018 MODE SCHILLING FACC, ALI FACP CCDS Ot I25.10 ATHSCL HEART DISEASE [place] CORONARY 08/27/2018 MODE SCHILLING FACC, ALI FACP CCDS Ot I65.23 OCCLUSION AND STENOSIS OF [place]IL[place] 08/27/2018 MODE SCHILLING FACC, ALI FACP CCDS Ot J43.8 OTHER EMPHYSEMA 08/27/2018 YAN LARIOS DO Ot J44. 9 CHRONIC OBSTRUCTIVE PULMONARY DISEASE, U 08/27/2018 YAN LARIOS DO Ot K44. 9 DIAPHRAGMATIC HERNIA WITHOUT OBSTRUCTION 08/27/2018 YAN LARIOS DO Ot R06. 09 OTHER FORMS OF DYSPNEA 08/27/2018 MODE MD FACC, ALI FACP CCDS Ot E78.5 HYPERLIPIDEMIA, UNSPECIFIED 08/27/2018 MODE SCHILLING FACC, ALI FACP CCDS Ot I25.10 ATHSCL HEART DISEASE [place] CORONARY 08/27/2018 MODE SCHILLING FACC, ALI FACP CCDS Ot I65.23 OCCLUSION AND STENOSIS OF BILATERAL [place] 08/27/2018 MODE SCHILLING FACC, ALI FACP CCDS Ot I73.9 PERIPHERAL VASCULAR DISEASE, UNSPECIFIED 08/27/2018 MODE SCHILLING FACC, ALI FACP CCDS Ot R06.09 OTHER FORMS OF DYSPNEA 08/27/2018 MODE SCHILLING FACC, ALI FACP CCDS Ot E78.4 OTHER HYPERLIPIDEMIA 08/27/2018 MODE SCHILLING FACC, ALI FACP CCDS Ot I25.10 ATHSCL HEART DISEASE [place] CORONARY 08/27/2018 MODE SCHILLING FACC, ALI FACP CCDS Ot I65.23 OCCLUSION AND STENOSIS OF [place]ILATERAL [place] 08/27/2018 MODE SCHILLING FACC, ALI FACP CCDS Ot R06.09 OTHER FORMS OF DYSPNEA 08/27/2018 MODE MCGARRY, ALI FACP CCDS Ot R07.89 OTHER CHEST PAIN 08/27/2018 LAKEISHA LAKE APRN Ot E11.9 TYPE 2 DIABETES MELLITUS WITHOUT COMPLIC 08/27/2018 LAKEISHA LAKE MATCHER Ot J21.8 ACUTE BRONCHIOLITIS DUE TO OTHER SPECIFI 08/27/2018 LAKEISHA LAKE MATCHER Ot J44.9 CHRONIC OBSTRUCTIVE PULMONARY DISEASE, U 08/27/2018 LAKEISHA LAKE APRN Ot K44.9 DIAPHRAGMATIC HERNIA WITHOUT OBSTRUCTION 08/27/2018 MODE MCGARRY, ALI FACP CCDS Ot E11.9 TYPE 2 DIABETES MELLITUS WITHOUT COMPLIC 08/27/2018 VIKI SAAVEDRA BROADCAST OPERATIONS TECHNICIAN Ot E87.6 HYPOKALEMIA 08/27/2018 VIKI SAAVEDRA BROADCAST OPERATIONS TECHNICIAN Ot E83.42 HYPOMAGNESEMIA 09/16/2018 MODE SCHILLING FACC, ALI FACP CCDS Ot E78.4 OTHER HYPERLIPIDEMIA 09/16/2018 MODE SCHILLING FACC, ALI FACP CCDS Ot I25.10 ATHSCL HEART DISEASE [place] CORONARY 09/16/2018 MODE SCHILLING FACC, ALI FACP CCDS Ot I65.23 OCCLUSION AND STENOSIS OF [place] 09/16/[address] [facility], [facility]I FACP CCDS Ot R06.09 OTHER FORMS OF DYSPNEA 09/16/2018 MODE SCHILLING [facility], ALI FACP CCDS Ot R07.89 OTHER CHEST PAIN 07/15/2019 YAN LARIOS DO Ot 486 PNEUMONIA, ORGANISM NOS 07/15/2019 YAN LARIOS DO Ot 525. 9 DENTAL DISORDER NOS 07/15/2019 YAN LARIOS DO Ot 786. 09 RESPIRATORY ABNORM NEC 07/15/2019 ERIC GLORIA DO Ot V72. 84 EXAM PRE-OPERATIVE NOS 07/15/2019 GLORIA ERIC BLISS Ot K62. 5 HEMORRHAGE OF ANUS AND RECTUM 07/15/[address] [facility], ALI FACP CCDS Ot E78.0 PURE HYPERCHOLESTEROLEMIA 07/15/2019 MODE SCHILLING [facility], ALI FACP CCDS Ot I25.10 ATHSCL HEART DISEASE [place] CORONARY 07/15/[address] [facility], ALI FACP CCDS Ot I65.23 OCCLUSION AND STENOSIS OF [place] 07/15/2019 MODE SCHILLING [facility], ALI FACP CCDS Ot J43.8 OTHER EMPHYSEMA 07/15/2019 MODE SCHILLING [facility], ALI FACP CCDS Ot R06.09 OTHER FORMS OF DYSPNEA 07/15/[address] [facility], ALI FACP CCDS Ot E78.0 PURE HYPERCHOLESTEROLEMIA 07/15/2019 MODE SCHILLING [facility], ALI FACP CCDS Ot I25.10 ATHSCL HEART DISEASE [place] CORONARY 07/15/2019 MODE SCHILLING [facility], ALI FACP CCDS Ot I65.23 OCCLUSION AND STENOSIS OF [place] 07/15/2019 MODE SCHILLING [facility], ALI FACP CCDS Ot J43.8 OTHER EMPHYSEMA 07/15/2019 YAN LARIOS DO Ot J44. 9 CHRONIC OBSTRUCTIVE PULMONARY DISEASE, U 07/15/2019 YAN LARIOS DO Ot K44. 9 DIAPHRAGMATIC HERNIA WITHOUT OBSTRUCTION 07/15/2019 YAN LARIOS DO Ot R06. 09 OTHER FORMS OF DYSPNEA 07/15/[address] [facility], ALI FACP CCDS Ot E78.5 HYPERLIPIDEMIA, UNSPECIFIED 07/15/[address] [facility], ALI FACP CCDS Ot I25.10 ATHSCL HEART DISEASE [place] CORONARY 07/15/2019 MODE SCHILLING [facility], ALI FACP CCDS Ot I65.23 OCCLUSION AND STENOSIS OF [place] 07/15/2019 MODE SCHILLING [facility], ALI FACP CCDS Ot I73.9 PERIPHERAL VASCULAR DISEASE, UNSPECIFIED 07/15/2019 MODE SCHILLING [facility], ALI FACP CCDS Ot R06.09 OTHER FORMS OF DYSPNEA 07/15/2019 MODE SCHILLING [facility], ALI FACP CCDS Ot E78.4 OTHER HYPERLIPIDEMIA 07/15/2019 MODE SCHILLING [facility], ALI FACP CCDS Ot I25.10 ATHSCL HEART DISEASE [place] CORONARY 07/15/2019 MODE SCHILLING [facility], ALI FACP CCDS Ot I65.23 OCCLUSION AND STENOSIS OF [place] 07/15/2019 MODE SCHILLING [facility], ALI FACP CCDS Ot R06.09 OTHER FORMS OF DYSPNEA 07/15/2019 MODE SCHILLING [facility], ALI FACP CCDS Ot R07.89 OTHER CHEST PAIN 07/15/2019 LAKEISHA LAKE APRN Ot E11.9 TYPE 2 DIABETES MELLITUS WITHOUT COMPLIC 07/15/2019 LAKEISHA LAKE APRN Ot J21.8 ACUTE BRONCHIOLITIS DUE TO OTHER SPECIFI 07/15/2019 LAKEISHA LAKE MATCHER Ot J44.9 CHRONIC OBSTRUCTIVE PULMONARY DISEASE, U 07/15/2019 LAKEISHA LAKE APRN Ot K44.9 DIAPHRAGMATIC HERNIA WITHOUT OBSTRUCTION 07/15/2019 MODE SCHILLING [facility], ALI FACP CCDS Ot E11.9 TYPE 2 DIABETES MELLITUS WITHOUT COMPLIC 07/15/2019 VIKI SAAVEDRA BROADCAST OPERATIONS TECHNICIAN Ot E87.6 HYPOKALEMIA 07/15/2019 VIKI SAAVEDRA BROADCAST OPERATIONS TECHNICIAN Ot E83.42 HYPOMAGNESEMIA 07/15/2019 YAN LARIOS DO Ot 486 PNEUMONIA, ORGANISM NOS 07/15/2019 YAN LARIOS DO Ot 525. 9 DENTAL DISORDER NOS 07/15/2019 YAN LARIOS DO Ot 786. 09 RESPIRATORY ABNORM NEC 07/15/2019 ERIC GLORIA DO Ot V72. 84 EXAM PRE-OPERATIVE NOS 07/15/2019 ERIC GLORIA DO Ot K62. 5 HEMORRHAGE OF ANUS AND RECTUM 07/15/2019 MODE SCHILLING FACC, PAZ FACP CCDS Ot E78.0 PURE HYPERCHOLESTEROLEMIA 07/15/2019 MODE MD FACC, ALI FACP CCDS Ot I25.10 ATHSCL HEART DISEASE [place] CORONARY 07/15/2019 MODE MD FACC, ALI FACP CCDS Ot I65.23 OCCLUSION AND STENOSIS OF BILATERAL [place] 07/15/2019 MODE MD FACC, ALI FACP CCDS Ot J43.8 OTHER EMPHYSEMA 07/15/2019 MODE MD FACC, ALI FACP CCDS Ot R06.09 OTHER FORMS OF DYSPNEA 07/15/2019 MODE MD FACC, ALI FACP CCDS Ot E78.0 PURE HYPERCHOLESTEROLEMIA 07/15/2019 MODE MD FACC, ALI FACP CCDS Ot I25.10 ATHSCL HEART DISEASE [place] CORONARY 07/15/2019 MODE MD FACC, ALI FACP CCDS Ot I65.23 OCCLUSION AND STENOSIS OF BILATERAL [place] 07/15/2019 MODE MD FAC, ALI FACP CCDS Ot J43.8 OTHER EMPHYSEMA 07/15/2019 YAN LARIOS DO Ot J44. 9 CHRONIC OBSTRUCTIVE PULMONARY DISEASE, U 07/15/2019 YAN LARIOS DO Ot K44. 9 DIAPHRAGMATIC HERNIA WITHOUT OBSTRUCTION 07/15/2019 YAN LARIOS DO Ot R06. 09 OTHER FORMS OF DYSPNEA 07/15/2019 MODE [facility], ALI FACP CCDS Ot E78.5 HYPERLIPIDEMIA, UNSPECIFIED 07/15/2019 [facility], ALI FACP CCDS Ot I25.10 ATHSCL HEART DISEASE [place] CORONARY 07/15/2019 MODE MD FAC, ALI FACP CCDS Ot I65.23 OCCLUSION AND STENOSIS OF BILATERAL [place] 07/15/2019 [facility], ALI FACP CCDS Ot I73.9 PERIPHERAL VASCULAR DISEASE, UNSPECIFIED 07/15/2019 MODE [place] FAC, ALI FACP CCDS Ot R06.09 OTHER FORMS OF DYSPNEA 07/15/2019 MODE NV FACC, ALI FACP CCDS Ot E78.4 OTHER HYPERLIPIDEMIA 07/15/2019 MODE NV FAC, ALI FACP CCDS Ot I25.10 ATHSCL HEART DISEASE [place] CORONARY 07/15/2019 MODE MD FACC, ALI FACP CCDS Ot I65.23 OCCLUSION AND STENOSIS OF BILATERAL [place] 07/15/2019 MODE NV FACC, ALI FACP CCDS Ot R06.09 OTHER FORMS OF DYSPNEA 07/15/2019 MODE SCHILLING FACC, PAZ FACP CCDS Ot R07.89 OTHER CHEST PAIN 07/15/2019 LAKEISHA LAKE APRN Ot E11.9 TYPE 2 DIABETES MELLITUS WITHOUT COMPLIC 07/15/2019 LAKEISHA LAKE APRN Ot J21.8 ACUTE BRONCHIOLITIS DUE TO OTHER SPECIFI 07/15/2019 LAKEISHA LAKE APRN Ot J44.9 CHRONIC OBSTRUCTIVE PULMONARY DISEASE, U 07/15/2019 LAKEISHA LAKE APRN Ot K44.9 DIAPHRAGMATIC HERNIA WITHOUT OBSTRUCTION 07/15/2019 MODE SCHILLING FACC, ALI FACP CCDS Ot E11.9 TYPE 2 DIABETES MELLITUS WITHOUT COMPLIC 07/15/2019 VIKI SAAVEDRA BROADCAST OPERATIONS TECHNICIAN Ot E87.6 HYPOKALEMIA 07/15/2019 VIKI SAAVEDRA BROADCAST OPERATIONS TECHNICIAN Ot E83.42 HYPOMAGNESEMIA 07/16/2019 YAN LARIOS DO Ot 486 PNEUMONIA, ORGANISM NOS 07/16/2019 YAN LARIOS DO Ot 525. 9 DENTAL DISORDER NOS 07/16/2019 YAN LARIOS DO Ot 786. 09 RESPIRATORY ABNORM NEC 07/16/2019 ERIC GLORIA DO Ot V72. 84 EXAM PRE-OPERATIVE NOS 07/16/2019 ERIC GLORIA DO Ot K62. 5 HEMORRHAGE OF ANUS AND RECTUM 07/16/2019 MODE SCHILLING FACC, PAZ FACP CCDS Ot E78.0 PURE HYPERCHOLESTEROLEMIA 07/16/2019 MODE SCHILLING FACC, ALI FACP CCDS Ot I25.10 ATHSCL HEART DISEASE [place] CORONARY 07/16/2019 MODE SCHILLING FACC, ALI FACP CCDS Ot I65.23 OCCLUSION AND STENOSIS OF BILATERAL [place] 07/16/2019 MODE SCHILLING FACC, ALI FACP CCDS Ot J43.8 OTHER EMPHYSEMA 07/16/2019 MODE SCHILLING FACC, ALI FACP CCDS Ot R06.09 OTHER FORMS OF DYSPNEA 07/16/2019 MODE SCHILLING FACC, ALI FACP CCDS Ot E78.0 PURE HYPERCHOLESTEROLEMIA 07/16/2019 MODE SCHILLING FACC, ALI FACP CCDS Ot I25.10 ATHSCL HEART DISEASE [place] CORONARY 07/16/2019 MODE SCHILLING FACC, ALI FACP CCDS Ot I65.23 OCCLUSION AND STENOSIS OF [place]IL[place]AL [place] 07/16/2019 MODE SCHILLING [facility], ALI FACP CCDS Ot J43.8 OTHER EMPHYSEMA 07/16/2019 YAN LARIOS DO Ot J44. 9 CHRONIC OBSTRUCTIVE PULMONARY DISEASE, U 07/16/2019 YAN LARIOS DO Ot K44. 9 DIAPHRAGMATIC HERNIA WITHOUT OBSTRUCTION 07/16/2019 YAN LARIOS DO Ot R06. 09 OTHER FORMS OF DYSPNEA 07/16/2019 MODE MD [facility], ALI FACP CCDS Ot E78.5 HYPERLIPIDEMIA, UNSPECIFIED 07/16/2019 MODE MD [facility], ALI FACP CCDS Ot I25.10 ATHSCL HEART DISEASE [place] CORONARY 07/16/2019 MODE MD [facility], ALI FACP CCDS Ot I65.23 OCCLUSION AND STENOSIS OF [place] 07/16/2019 MODE [facility], ALI FACP CCDS Ot I73.9 PERIPHERAL VASCULAR DISEASE, UNSPECIFIED 07/16/2019 MODE MD [facility], ALI FACP CCDS Ot R06.09 OTHER FORMS OF DYSPNEA 07/16/2019 MODE MD [facility], ALI FACP CCDS Ot E78.4 OTHER HYPERLIPIDEMIA 07/16/2019 MODE MD [facility], ALI FACP CCDS Ot I25.10 ATHSCL HEART DISEASE [place] CORONARY 07/16/2019 MODE [facility], ALI FACP CCDS Ot I65.23 OCCLUSION AND STENOSIS OF [place] 07/16/2019 MODE MD [facility], ALI FACP CCDS Ot R06.09 OTHER FORMS OF DYSPNEA 07/16/2019 MODE MD [facility], ALI FACP CCDS Ot R07.89 OTHER CHEST PAIN 07/16/2019 LAKEISHA LAKE APRN Ot E11.9 TYPE 2 DIABETES MELLITUS WITHOUT COMPLIC 07/16/2019 LAKEISHA LAKE APRN Ot J21.8 ACUTE BRONCHIOLITIS DUE TO OTHER SPECIFI 07/16/2019 LAKEISHA LAKE APRN Ot J44.9 CHRONIC OBSTRUCTIVE PULMONARY DISEASE, U 07/16/2019 LAKEISHA LAKE APRN Ot K44.9 DIAPHRAGMATIC HERNIA WITHOUT OBSTRUCTION 07/16/2019 MODE SCHILLING [facility], ALI FACP CCDS Ot E11.9 TYPE 2 DIABETES MELLITUS WITHOUT COMPLIC 07/16/2019 VIKI SAAVEDRA BROADCAST OPERATIONS TECHNICIAN Ot E87.6 HYPOKALEMIA 07/16/2019 VIKI SAAVEDRAP Ot E83.42 HYPOMAGNESEMIA Procedures Code Description Performed By Per formed On Prosper Deng 01/20/2013 02529 XRAY CHEST 2 VIEW 03/29/2013 38281 H PY HARDY (IN-HOUSE) 04/05/2013 46274 ROUT INE VENIPUNCTURE 06/14/2013 [id number] GF R CALC (RESULT ONLY) 06/14/2013 41626 CMP 06/14/2013 66468 LIPI D PANEL 06/14/2013 55719 TSH 06/14/2013 83699 ROUT INE VENIPUNCTURE 07/30/2013 [id number] GF R CALC (RESULT ONLY) 07/30/2013 51643 CMP 07/30/2013 11580 LIPI D PANEL 07/30/2013 93657 A1C (IN-HOUSE) 09/28/2013 53525 ROUT INE VENIPUNCTURE 01/12/2014 [id number] GF R CALC (RESULT ONLY) 01/12/2014 39671 CMP 01/12/2014 16078 LIPI D PANEL 01/12/2014 51004 ROUT INE VENIPUNCTURE 06/09/2014 [id number] GF R CALC (RESULT ONLY) 06/09/2014 57857 CMP 06/09/2014 41156 LIPI D PANEL 06/09/2014 17847 XRAY KNEE LEFT, 1 OR 2 VIEWS 08/24/2014 18316 A1C (IN-HOUSE) 08/24/2014 34554 GLUC OSE FINGER STICK 08/24/2014 Results Test Result Range Complete blood count (CBC) with automate d white blood cell (WBC) differential - 01/14/17 12:05 Blood leukocytes automated count (number/volume) 5.3 10*3/uL 4.3-11.0 Blood erythrocytes automated count (number/volume) 4.19 10*6/uL 4.35-5.85 Venous blood hemoglobin measurement (mass/volume) 11.0 g/dL 11.5-16.0 Blood hematocrit (volume fraction) 35 % 35-52 Automated erythrocyte mean corpuscular volume 82 [ foz_us] 80-99 Automated erythrocyte mean corpuscular h emoglobin (mass per erythrocyte) 26 pg 25-34 Automated erythrocyte mean corpuscular h emoglobin concentration measurement (mass/volume) 32 g/dL 32-36 Automated erythrocyte distribution width ratio 15. 6 % 10.0- 14.5 Automated blood platelet count (count/volume) 274 10*3/uL [...] 10*3 1.0-4.0 Blood monocytes automated count (number/volume) 0. 5 10*3 0.0-1.0 Automated eosinophil count 0.1 10*3/uL 0 .0-0.3 Automated blood basophil count (count/volume) 0.1 10*3/uL 0.0-0.1 Methicillin resistant Staphylococcus aur eus (MRSA) screening culture - 01/14/17 12:05 Methicillin resistant Staphylococcus aureus (MRSA) scr eening culture NEG NRG Capillary blood glucose measurement by g lucometer (mass/volume) - 01/16/17 08:53 Capillary blood glucose measurement by glucometer (mas s/volume) 87 mg/dL 70-110 THYROID ANALYZER - 02/12/17 09:42 TSH 1.95 mIU/L 0.40-4.50 Capillary blood glucose measurement by g lucometer (mass/volume) - 06/29/17 17:02 Capillary blood glucose measurement by glucometer (mas s/volume) 89 mg/dL 70-110 Complete blood count (CBC) with automate d white blood cell (WBC) differential - 06/29/17 17:05 Blood leukocytes automated count (number/volume) 6.0 10*3/uL 4.3-11.0 Blood erythrocytes automated count (number/volume) 4.50 10*6/uL 4.35-5.85 Venous blood hemoglobin measurement (mass/volume) 11.7 g/dL 11.5-16.0 Blood hematocrit (volume fraction) 37 % 35-52 Automated erythrocyte mean corpuscular volume 81 [ foz_us] 80-99 Automated erythrocyte mean corpuscular h emoglobin (mass per erythrocyte) 26 pg 25-34 Automated erythrocyte mean corpuscular h emoglobin concentration measurement (mass/volume) 32 g/dL 32-36 Automated erythrocyte distribution width ratio 14. 8 % 10.0- 14.5 Automated blood platelet count (count/volume) 356 10*3/uL 130-400 Automated blood platelet mean volume measurement 10.0 [foz_us] 7.4-10.4 Automated blood neutrophils/100 leukocytes 54 % 42-75 Automated blood lymphocytes/100 leukocytes 36 % 12-44 Blood monocytes/100 leukocytes 7 % 0-12 Automated blood eosinophils/100 leukocytes 2 % 0-10 Automated blood basophils/100 leukocytes 1 % 0-10 Blood neutrophils automated count (number/volume) 3.3 10*3 1.8-7.8 Blood lymphocytes automated count (number/volume) 2.2 10*3 1.0-4.0 Blood monocytes automated count (number/volume) 0. 4 10*3 0.0-1.0 Automated eosinophil count 0.1 10*3/uL 0 .0-0.3 Automated blood basophil count (count/volume) 0.1 10*3/uL 0.0-0.1 Comprehensive metabolic panel - 06/29/17 17:05 Serum or plasma sodium measurement (moles/volume) 136 mmol/L 135-145 Serum or plasma potassium measurement (moles/volume) 4.3 mmol/L 3.6-5.0 Serum or plasma chloride measurement (moles/volume) 101 mmol/L 98-107 Carbon dioxide 20 mmol/L 21-32 Serum or plasma anion gap determination (moles/volume) 15 mmol/L 5-14 Serum or plasma urea nitrogen measurement (mass/volume ) 12 mg/dL 7-18 Serum or plasma creatinine measurement (mass/volume) 0.77 mg/dL 0.60-1.30 Serum or plasma urea nitrogen/creatinine mass ratio 16 NRG Serum or plasma creatinine measurement w ith calculation of estimated glomerular filtration rate > NRG Serum or plasma glucose measurement (mass/volume) 86 mg/dL 70-105 Serum or plasma calcium measurement (mass/volume) 9.5 mg/dL 8.5-10.1 Serum or plasma total bilirubin measurement (mass/volu me) 0.4 mg/dL 0.1-1.0 Serum or plasma alkaline phosphatase rosemarie surement (enzymatic activity/volume) 51 U/L 40-136 Serum or plasma aspartate aminotransfera se measurement (enzymatic activity/volume) 12 U/L 5-34 Serum or plasma alanine aminotransferase measurement (enzymatic activity/volume) 11 U/L 0-55 Serum or plasma protein measurement (mass/volume) 7.8 g/dL 6.4-8.2 Serum or plasma albumin measurement (mass/volume) 4.6 g/dL 3.2-4.5 Complete urinalysis with reflex to cultu re - 06/29/17 17:25 Urine color determination YELLOW NRG Urine clarity determination CLEAR NR G Urine pH measurement by test strip 6 5-9 Specific gravity of urine by test strip 1.020 1.016-1.022 Urine protein assay by test strip, semi-quantitative NEGATIVE NEGATIVE Urine glucose detection by automated test strip NE GATIVE NEGATIVE Erythrocytes detection in urine sediment by light micr oscopy 2+ NEGATIVE Urine ketones detection by automated test strip 1+ NEGATIVE Urine nitrite detection by test strip NEGATIVE NEGATIVE Urine total bilirubin detection by test strip NEGA TIVE NEGATIVE Urine urobilinogen measurement by automated test strip (mass/volume) NORMAL NORMAL Urine leukocyte esterase detection by dipstick 3+ NEGATIVE Automated urine sediment erythrocyte cou nt by microscopy (number/high power field) [HPF] NRG Automated urine sediment leukocyte count by microscopy (number/high power field) [HPF] NRG Bacteria detection in urine sediment by light microsco py FEW NRG Squamous epithelial cells detection in u rine sediment by light microscopy 10-25 NRG Crystals detection in urine sediment by light microsco py NONE NRG Casts detection in urine sediment by light microscopy NONE NRG Mucus detection in urine sediment by light microscopy SMALL NRG Complete urinalysis with reflex to culture YES NRG Bacterial urine culture - 06/29/17 17:25 Bacterial urine culture SEE COMMEN NRG COLONY COUNT . NRG FTX;REPORTABLE PLUS MIXED GRAM POSITIVES <10,000/M L NRG Complete blood count (CBC) with automate d white blood cell (WBC) differential - 05/11/18 11:23 Blood leukocytes automated count (number/volume) 8.9 10*3/uL 4.3-11.0 Blood erythrocytes automated count (number/volume) 4.71 10*6/uL 4.35-5.85 Venous blood hemoglobin measurement (mass/volume) 12.0 g/dL 11.5-16.0 Blood hematocrit (volume fraction) 38 % 35-52 Automated erythrocyte mean corpuscular volume 80 [ foz_us] 80-99 Automated erythrocyte mean corpuscular h emoglobin (mass per erythrocyte) 26 pg 25-34 Automated erythrocyte mean corpuscular h emoglobin concentration measurement (mass/volume) 32 g/dL 32-36 Automated erythrocyte distribution width ratio 16. 6 % 10.0- 14.5 Automated blood platelet count (count/volume) 357 10*3/uL 130-400 Automated blood platelet mean volume measurement 9.6 [foz_us] 7.4-10.4 Automated blood neutrophils/100 leukocytes 79 % 42-75 Automated blood lymphocytes/100 leukocytes 11 % 12-44 Blood monocytes/100 leukocytes 10 % 0-12 Automated blood eosinophils/100 leukocytes 0 % 0-10 Automated blood basophils/100 leukocytes 0 % 0-10 Blood neutrophils automated count (number/volume) 7.0 10*3 1.8-7.8 Blood lymphocytes automated count (number/volume) 1.0 10*3 1.0-4.0 Blood monocytes automated count (number/volume) 0. 9 10*3 0.0-1.0 Automated eosinophil count 0.0 10*3/uL 0 .0-0.3 Automated blood basophil count (count/volume) 0.0 10*3/uL 0.0-0.1 Blood lactic acid measurement (moles/vol ume) - 05/11/18 11:23 Blood lactic acid measurement (moles/volume) 1.18 mmol/L 0.50-2.00 PT panel in platelet poor plasma by coag ulation assay - 05/11/18 11:23 Prothrombin time (PT) in platelet poor plasma by coagu lation assay 14.9 s 12.2-14.7 INR in platelet poor plasma or blood by coagulation as say 1.2 0.8-1.4 Activated partial thromboplastin time (a PTT) in platelet poor plasma bycoagulation assay - 05/11/18 11:23 Activated partial thromboplastin time (a PTT) in platelet poor plasma bycoagulation assay 44 s 24-35 Influenza virus A and B antigen detectio n - 05/11/18 11:23 FLU RESULT NEGATIVE FOR INFLUENZA A AND B ANTIGENS BY [facility] Comprehensive metabolic panel - 05/11/18 11:23 Serum or plasma sodium measurement (moles/volume) 136 mmol/L 135-145 Serum or plasma potassium measurement (moles/volume) 3.3 mmol/L 3.6-5.0 Serum or plasma chloride measurement (moles/volume) 100 mmol/L 98-107 Carbon dioxide 19 mmol/L 21-32 Serum or plasma anion gap determination (moles/volume) 17 mmol/L 5-14 Serum or plasma urea nitrogen measurement (mass/volume ) 12 mg/dL 7-18 Serum or plasma creatinine measurement (mass/volume) 0.81 mg/dL 0.60-1.30 Serum or plasma urea nitrogen/creatinine mass ratio 15 NRG Serum or plasma creatinine measurement w ith calculation of estimated glomerular filtration rate > NRG Serum or plasma glucose measurement (mass/volume) 132 mg/dL 70-105 Serum or plasma calcium measurement (mass/volume) 9.8 mg/dL 8.5-10.1 Serum or plasma total bilirubin measurement (mass/volu me) 0.8 mg/dL 0.1-1.0 Serum or plasma alkaline phosphatase rosemarie surement (enzymatic activity/volume) 76 U/L 40-136 Serum or plasma aspartate aminotransfera se measurement (enzymatic activity/volume) 37 U/L 5-34 Serum or plasma alanine aminotransferase measurement (enzymatic activity/volume) 42 U/L 0-55 Serum or plasma protein measurement (mass/volume) 8.8 g/dL 6.4-8.2 Serum or plasma albumin measurement (mass/volume) 4.9 g/dL 3.2-4.5 Serum or plasma troponin i.cardiac measu rement (mass/volume) - 05/11/18 11:23 Serum or plasma troponin i.cardiac measurement (mass/v olume) < ng/mL <0.30 Serum or plasma lithium measurement (mol es/volume) - 05/11/18 11:23 BNP level 104.2 pg/mL <100.0 Bacterial blood culture - 05/11/18 11:23 Bacterial blood culture NG NRG Bacterial blood culture - 05/11/18 11:42 Bacterial blood culture NG NRG Sputum Gram stain - 05/11/18 12:19 Sputum Gram stain Many Gram positive cocci in pair s NRG Bacterial sputum culture - 05/11/18 12:1 9 FREE TEXT EXTERNAL SUSCEPTIBILITY REPORTED -07-28, 1205. NRG QUANTITY OF GROWTH Many NRG FREE TEXT ENTRY 2 RML SENT ID REPORT 05/13 12:05 NRG Bacterial sputum [facility] [id number] [facility] Sensitivity [facility] - 05/11/18 12:1 9 Trimethoprim/sulfamethoxazole susceptibility test by a gar diffusion S NRG Vancomycin susceptibility test by agar diffusion S NRG LEVOFLOXACIN S NRG Penicillin G susceptibility test by agar diffusion S NRG Clindamycin susceptibility test by agar diffusion S NRG Erythromycin susceptibility test by agar diffusion S NRG Linezolid susceptibility test by agar diffusion S NRG Comprehensive metabolic panel - 05/21/18 10:15 Serum or plasma sodium measurement (moles/volume) 136 mmol/L 135-145 Serum or plasma potassium measurement (moles/volume) 3.3 mmol/L 3.6-5.0 Serum or plasma chloride measurement (moles/volume) 97 mmol/L 98-107 Carbon dioxide 26 mmol/L 21-32 Serum or plasma anion gap determination (moles/volume) 13 mmol/L 5-14 Serum or plasma urea nitrogen measurement (mass/volume ) 7 mg/dL 7-18 Serum or plasma creatinine measurement (mass/volume) 0.68 mg/dL 0.60-1.30 Serum or plasma urea nitrogen/creatinine mass ratio 10 NRG Serum or plasma creatinine measurement w ith calculation of estimated glomerular filtration rate > NRG Serum or plasma glucose measurement (mass/volume) 125 mg/dL 70-105 Serum or plasma calcium measurement (mass/volume) 8.7 mg/dL 8.5-10.1 Serum or plasma total bilirubin measurement (mass/volu me) 0.5 mg/dL 0.1-1.0 Serum or plasma alkaline phosphatase rosemarie surement (enzymatic activity/volume) 66 U/L 40-136 Serum or plasma aspartate aminotransfera se measurement (enzymatic activity/volume) 9 U/L 5-34 Serum or plasma alanine aminotransferase measurement (enzymatic activity/volume) 8 U/L 0-55 Serum or plasma protein measurement (mass/volume) 7.3 g/dL 6.4-8.2 Serum or plasma albumin measurement (mass/volume) 3.8 g/dL 3.2-4.5 CALCIUM CORRECTED 8.9 mg/dL 8.5-10.1 Whole blood basic metabolic panel - 05/12 09/27 09:00 Serum or plasma sodium measurement (moles/volume) 135 mmol/L 135-145 Serum or plasma potassium measurement (moles/volume) 3.6 mmol/L 3.6-5.0 Serum or plasma chloride measurement (moles/volume) 98 mmol/L 98-107 Carbon dioxide 24 mmol/L 21-32 Serum or plasma anion gap determination (moles/volume) 13 mmol/L 5-14 Serum or plasma urea nitrogen measurement (mass/volume ) 14 mg/dL 7-18 Serum or plasma creatinine measurement (mass/volume) 0.72 mg/dL 0.60-1.30 Serum or plasma urea nitrogen/creatinine mass ratio 19 NRG Serum or plasma creatinine measurement w ith calculation of estimated glomerular filtration rate > NRG Serum or plasma glucose measurement (mass/volume) 110 mg/dL 70-105 Serum or plasma calcium measurement (mass/volume) 8.5 mg/dL 8.5-10.1 Magnesium - 05/26/18 09:00 Magnesium 1.2 mg/dL 1.8-2.4 LIPID PANEL - 08/25/18 10:34 CHOLESTEROL, TOTAL 141 mg/dL <200 HDL CHOLESTEROL 54 mg/dL >50 TRIGLYCERIDES 154 mg/dL <150 LDL-CHOLESTEROL 63 mg/dL (calc) NRG CHOL/HDLC RATIO 2.6 (calc) <5.0 NON HDL CHOLESTEROL 87 mg/dL (calc) <130 CMP - 08/25/18 10:34 GLUCOSE 99 mg/dL 65-99 UREA NITROGEN (BUN) 15 mg/dL 7-25 CREATININE 0.58 mg/dL 0.50-0.99 eGFR NON-AFR. [place] 96 mL/min/1.73m2 > OR = 60 eGFR 111 mL/min/1.73m2 > OR = 60 BUN/CREATININE RATIO NOT APPLICABLE (calc) 6-22 SODIUM 135 mmol/L 135-146 POTASSIUM 4.3 mmol/L 3.5-5.3 CHLORIDE 101 mmol/L 98-110 CARBON DIOXIDE 27 mmol/L 20-32 CALCIUM 9.4 mg/dL 8.6-10.4 PROTEIN, TOTAL 6.6 g/dL 6.1-8.1 ALBUMIN 4.3 g/dL 3.6-5.1 GLOBULIN 2.3 g/dL (calc) 1.9-3.7 ALBUMIN/GLOBULIN RATIO 1.9 (calc) 1.0-2. 5 BILIRUBIN, TOTAL 0.5 mg/dL 0.2-1.2 ALKALINE PHOSPHATASE 45 U/L 33-130 AST 12 U/L 10-35 ALT 10 U/L 6-29 CBC - 08/25/18 10:34 WHITE BLOOD CELL COUNT 4.5 Thousand/uL 3 .8-10.8 RED BLOOD CELL COUNT 4.42 Million/uL 3.8 0-5.10 HEMOGLOBIN 10.6 g/dL 11.7-15.5 HEMATOCRIT 35.2 % 35.0-45.0 MCV 79.6 fL 80.0-100.0 MCH 24.0 pg 27.0-33.0 MCHC 30.1 g/dL 32.0-36.0 RDW 15.4 % 11.0-15.0 PLATELET COUNT 504 Thousand/uL 140-400 MPV 9.5 fL 7.5-12.5 ABSOLUTE NEUTROPHILS 2471 cells/uL 1500- 7800 ABSOLUTE LYMPHOCYTES 1427 cells/uL 850-3 900 ABSOLUTE MONOCYTES 432 cells/uL 200-950 ABSOLUTE EOSINOPHILS 99 cells/uL 15-500 ABSOLUTE BASOPHILS 72 cells/uL 0-200 NEUTROPHILS 54.9 % NRG LYMPHOCYTES 31.7 % NRG MONOCYTES 9.6 % NRG EOSINOPHILS 2.2 % NRG BASOPHILS 1.6 % NRG Whole blood basic metabolic panel - 09/28 15:20 Serum or plasma sodium measurement (moles/volume) 133 mmol/L 135-145 Serum or plasma potassium measurement (moles/volume) 4.0 mmol/L 3.6-5.0 Serum or plasma chloride measurement (moles/volume) 100 mmol/L 98-107 Carbon dioxide 21 mmol/L 21-32 Serum or plasma anion gap determination (moles/volume) 12 mmol/L 5-14 Serum or plasma urea nitrogen measurement (mass/volume ) 14 mg/dL 7-18 Serum or plasma creatinine measurement (mass/volume) 0.66 mg/dL 0.60-1.30 Serum or plasma urea nitrogen/creatinine mass ratio 21 NRG Serum or plasma creatinine measurement w ith calculation of estimated glomerular filtration rate > NRG Serum or plasma glucose measurement (mass/volume) 118 mg/dL 70-105 Serum or plasma calcium measurement (mass/volume) 8.9 mg/dL 8.5-10.1 Complete blood count (CBC) with automate d white blood cell (WBC) differential - 07/15/19 15:20 Blood leukocytes automated count (number/volume) 6.2 10*3/uL 4.3-11.0 Blood erythrocytes automated count (number/volume) 4.17 10*6/uL 4.35-5.85 Venous blood hemoglobin measurement (mass/volume) 9.2 g/dL 11.5-16.0 Blood hematocrit (volume fraction) 31 % 35-52 Automated erythrocyte mean corpuscular volume 73 [ foz_us] 80-99 Automated erythrocyte mean corpuscular h emoglobin (mass per erythrocyte) 22 pg 25-34 Automated erythrocyte mean corpuscular h emoglobin concentration measurement (mass/volume) 30 g/dL 32-36 Automated erythrocyte distribution width ratio 18. 1 % 10.0- 14.5 Automated blood platelet count (count/volume) 388 10*3/uL 130-400 Automated blood platelet mean volume measurement 9.9 [foz_us] 7.4-10.4 Automated blood neutrophils/100 leukocytes 64 % 42-75 Automated blood lymphocytes/100 leukocytes 26 % 12-44 Blood monocytes/100 leukocytes 9 % 0-12 Automated blood eosinophils/100 leukocytes 1 % 0-10 Automated blood basophils/100 leukocytes 1 % 0-10 Blood neutrophils automated count (number/volume) 4.0 10*3 1.8-7.8 Blood lymphocytes automated count (number/volume) 1.6 10*3 1.0-4.0 Blood monocytes automated count (number/volume) 0. 5 10*3 0.0-1.0 Automated eosinophil count 0.1 10*3/uL 0 .0-0.3 Automated blood basophil count (count/volume) 0.0 10*3/uL 0.0-0.1 Complete blood count (CBC) with automate d white blood cell (WBC) differential - 07/17/19 11:44 Blood leukocytes automated count (number/volume) 7.2 10*3/uL 4.3-11.0 Blood erythrocytes automated count (number/volume) 3.72 10*6/uL 4.35-5.85 Venous blood hemoglobin measurement (mass/volume) 8.1 g/dL 11.5-16.0 Blood hematocrit (volume fraction) 28 % 35-52 Automated erythrocyte mean corpuscular volume 74 [ foz_us] 80-99 Automated erythrocyte mean corpuscular h emoglobin (mass per erythrocyte) 22 pg 25-34 Automated erythrocyte mean corpuscular h emoglobin concentration measurement (mass/volume) 30 g/dL 32-36 Automated erythrocyte distribution width ratio 17. 8 % 10.0- 14.5 Automated blood platelet count (count/volume) 345 10*3/uL 130-400 Automated blood platelet mean volume measurement 9.6 [foz_us] 7.4-10.4 Automated blood neutrophils/100 leukocytes 74 % 42-75 Automated blood lymphocytes/100 leukocytes 16 % 12-44 Blood monocytes/100 leukocytes 9 % 0-12 Automated blood eosinophils/100 leukocytes 1 % 0-10 Automated blood basophils/100 leukocytes 0 % 0-10 Blood neutrophils automated count (number/volume) 5.3 10*3 1.8-7.8 Blood lymphocytes automated count (number/volume) 1.1 10*3 1.0-4.0 Blood monocytes automated count (number/volume) 0. 7 10*3 0.0-1.0 Automated eosinophil count 0.1 10*3/uL 0 .0-0.3 Automated blood basophil count (count/volume) 0.0 10*3/uL 0.0-0.1 Comprehensive metabolic panel - 07/17/19 11:44 Serum or plasma sodium measurement (moles/volume) 134 mmol/L 135-145 Serum or plasma potassium measurement (moles/volume) 4.0 mmol/L 3.6-5.0 Serum or plasma chloride measurement (moles/volume) 100 mmol/L 98-107 Carbon dioxide 23 mmol/L 21-32 Serum or plasma anion gap determination (moles/volume) 11 mmol/L 5-14 Serum or plasma urea nitrogen measurement (mass/volume ) 24 mg/dL 7-18 Serum or plasma creatinine measurement (mass/volume) 0.63 mg/dL 0.60-1.30 Serum or plasma urea nitrogen/creatinine mass ratio 38 NRG Serum or plasma creatinine measurement w ith calculation of estimated glomerular filtration rate > NRG Serum or plasma glucose measurement (mass/volume) 127 mg/dL 70-105 Serum or plasma calcium measurement (mass/volume) 8.6 mg/dL 8.5-10.1 Serum or plasma total bilirubin measurement (mass/volu me) 0.5 mg/dL 0.1-1.0 Serum or plasma alkaline phosphatase rosemarie surement (enzymatic activity/volume) 45 U/L 40-136 Serum or plasma aspartate aminotransfera se measurement (enzymatic activity/volume) 10 U/L 5-34 Serum or plasma alanine aminotransferase measurement (enzymatic activity/volume) 8 U/L 0-55 Serum or plasma protein measurement (mass/volume) 6.3 g/dL 6.4-8.2 Serum or plasma albumin measurement (mass/volume) 3.9 g/dL 3.2-4.5 CALCIUM CORRECTED 8.7 mg/dL 8.5-10.1 IRON TEST - 07/17/19 11:44 Serum or plasma iron measurement (mass/volume) < % 35-180 Complete blood count (CBC) with automate d white blood cell (WBC) differential - 07/18/19 06:02 Blood leukocytes automated count (number/volume) 5.2 10*3/uL 4.3-11.0 Blood erythrocytes automated count (number/volume) 3.15 10*6/uL 4.35-5.85 Venous blood hemoglobin measurement (mass/volume) 6.6 g/dL 11.5-16.0 Blood hematocrit (volume fraction) 23 % 35-52 Automated erythrocyte mean corpuscular volume 74 [ foz_us] 80-99 Automated erythrocyte mean corpuscular h emoglobin (mass per erythrocyte) 21 pg 25-34 Automated erythrocyte mean corpuscular h emoglobin concentration measurement (mass/volume) 28 g/dL 32-36 Automated erythrocyte distribution width ratio 18. 0 % 10.0- 14.5 Automated blood platelet count (count/volume) 268 10*3/uL 130-400 Automated blood platelet mean volume measurement 9.0 [foz_us] 7.4-10.4 Automated blood neutrophils/100 leukocytes 58 % 42-75 Automated blood lymphocytes/100 leukocytes 27 % 12-44 Blood monocytes/100 leukocytes 11 % 0-12 Automated blood eosinophils/100 leukocytes 3 % 0-10 Automated blood basophils/100 leukocytes 1 % 0-10 Blood neutrophils automated count (number/volume) 3.0 10*3 1.8-7.8 Blood lymphocytes automated count (number/volume) 1.4 10*3 1.0-4.0 Blood monocytes automated count (number/volume) 0. 6 10*3 0.0-1.0 Automated eosinophil count 0.2 10*3/uL 0 .0-0.3 Automated blood basophil count (count/volume) 0.1 10*3/uL 0.0-0.1 Comprehensive metabolic panel - 07/18/19 06:02 Serum or plasma sodium measurement (moles/volume) 136 mmol/L 135-145 Serum or plasma potassium measurement (moles/volume) 3.8 mmol/L 3.6-5.0 Serum or plasma chloride measurement (moles/volume) 102 mmol/L 98-107 Carbon dioxide 25 mmol/L 21-32 Serum or plasma anion gap determination (moles/volume) 9 mmol/L 5-14 Serum or plasma urea nitrogen measurement (mass/volume ) 10 mg/dL 7-18 Serum or plasma creatinine measurement (mass/volume) 0.60 mg/dL 0.60-1.30 Serum or plasma urea nitrogen/creatinine mass ratio 17 NRG Serum or plasma creatinine measurement w ith calculation of estimated glomerular filtration rate > NRG Serum or plasma glucose measurement (mass/volume) 99 mg/dL 70-105 Serum or plasma calcium measurement (mass/volume) 8.2 mg/dL 8.5-10.1 Serum or plasma total bilirubin measurement (mass/volu me) 0.3 mg/dL 0.1-1.0 Serum or plasma alkaline phosphatase rosemarie surement (enzymatic activity/volume) 38 U/L 40-136 Serum or plasma aspartate aminotransfera se measurement (enzymatic activity/volume) 10 U/L 5-34 Serum or plasma alanine aminotransferase measurement (enzymatic activity/volume) 7 U/L 0-55 Serum or plasma protein measurement (mass/volume) 5.4 g/dL 6.4-8.2 Serum or plasma albumin measurement (mass/volume) 3.3 g/dL 3.2-4.5 CALCIUM CORRECTED 8.8 mg/dL 8.5-10.1 RED CELLS LEUKO REDUCED AS1 - 07/18/19 0 7:24 RED CELLS LEUKO REDUCED AS1 T RANSFUSED 07/18/19 1139 NRG Blood type T Indirect antibody screen [facility] 07/18/19 07:24 WRISTBAND NUMBER [id number] NRG ABO+Rh group AP NRG Blood group antibody screen NEGATIVE NR G OCCULT BLOOD STOOL - 07/18/19 10:33 Stool gastrointestinal hemoglobin detection NEGATI VE NEGATIVE Whole blood hemoglobin and hematocrit [facility] 07/18/19 21:20 Venous blood hemoglobin measurement (mass/volume) 10.2 g/dL 11.5-16.0 Blood hematocrit (volume fraction) 33 % 35-52 Complete blood count (CBC) with automate d white blood cell (WBC) differential - 07/19/19 04:40 Blood leukocytes automated count (number/volume) 5.0 10*3/uL 4.3-11.0 Blood erythrocytes automated count (number/volume) 4.04 10*6/uL 4.35-5.85 Venous blood hemoglobin measurement (mass/volume) 9.4 g/dL 11.5-16.0 Blood hematocrit (volume fraction) 31 % 35-52 Automated erythrocyte mean corpuscular volume 76 [ foz_us] 80-99 Automated erythrocyte mean corpuscular h emoglobin (mass per erythrocyte) 23 pg 25-34 Automated erythrocyte mean corpuscular h emoglobin concentration measurement (mass/volume) 31 g/dL 32-36 Automated erythrocyte distribution width ratio 18. 0 % 10.0- 14.5 Automated blood platelet count (count/volume) 264 10*3/uL 130-400 Automated blood platelet mean volume measurement 9.6 [foz_us] 7.4-10.4 Automated blood neutrophils/100 leukocytes 48 % 42-75 Automated blood lymphocytes/100 leukocytes 35 % 12-44 Blood monocytes/100 leukocytes 11 % 0-12 Automated blood eosinophils/100 leukocytes 5 % 0-10 Automated blood basophils/100 leukocytes 2 % 0-10 Blood neutrophils automated count (number/volume) 2.4 10*3 1.8-7.8 Blood lymphocytes automated count (number/volume) 1.8 10*3 1.0-4.0 Blood monocytes automated count (number/volume) 0. 5 10*3 0.0-1.0 Automated eosinophil count 0.3 10*3/uL 0 .0-0.3 Automated blood basophil count (count/volume) 0.1 10*3/uL 0.0-0.1 Comprehensive metabolic panel - 07/19/19 04:40 Serum or plasma sodium measurement (moles/volume) 137 mmol/L 135-145 Serum or plasma potassium measurement (moles/volume) 3.7 mmol/L 3.6-5.0 Serum or plasma chloride measurement (moles/volume) 102 mmol/L 98-107 Carbon dioxide 26 mmol/L 21-32 Serum or plasma anion gap determination (moles/volume) 9 mmol/L 5-14 Serum or plasma urea nitrogen measurement (mass/volume ) 7 mg/dL 7-18 Serum or plasma creatinine measurement (mass/volume) 0.63 mg/dL 0.60-1.30 Serum or plasma urea nitrogen/creatinine mass ratio 11 NRG Serum or plasma creatinine measurement w ith calculation of estimated glomerular filtration rate > NRG Serum or plasma glucose measurement (mass/volume) 89 mg/dL 70-105 Serum or plasma calcium measurement (mass/volume) 8.4 mg/dL 8.5-10.1 Serum or plasma total bilirubin measurement (mass/volu me) 0.6 mg/dL 0.1-1.0 Serum or plasma alkaline phosphatase rosemarie surement (enzymatic activity/volume) 43 U/L 40-136 Serum or plasma aspartate aminotransfera se measurement (enzymatic activity/volume) 11 U/L 5-34 Serum or plasma alanine aminotransferase measurement (enzymatic activity/volume) 7 U/L 0-55 Serum or plasma protein measurement (mass/volume) 5.6 g/dL 6.4-8.2 Serum or plasma albumin measurement (mass/volume) 3.4 g/dL 3.2-4.5 CALCIUM CORRECTED 8.9 mg/dL 8.5-10.1 Encounters ACCT No. Visit Date/Time Discharge Status Pt. Type Provider Facility Loc./Unit Complaint [id number] 03/31/2019 13:20:00 03/31/2019 23:59:5 9 [facility] Outpatient ELLEN DISLA APRN [facility] BANNING [id number] 08/25/2018 10:00:00 Document Registration [id number] 02/12/2017 09:40:00 Document Registration [id number] 08/24/2014 08:24:00 08/24/2014 23:59: 59 [facility] Outpatient TOSHIA POPE DO [id number] 06/22/2014 08:38:00 06/22/2014 23:59: 59 [facility] Outpatient ELLEN DISLA APRN [id number] 01/12/2014 10:12:00 01/12/2014 23:59: 59 [facility] Outpatient ELLEN DISLA APRN [id number] 10/06/2013 08:17:00 10/06/2013 23:59: 59 [facility] Outpatient ELLEN DISLA APRN [id number] 09/28/2013 10:25:00 09/28/2013 23:59: 59 [facility] Outpatient POPE DOTOSHIA [id number] 09/06/2013 13:55:00 09/06/2013 23:59: 59 [facility] Outpatient TOSHIA DOTOSHIA [id number] 07/30/2013 08:23:00 07/30/2013 23:59: 59 [facility] Outpatient TOSHIA DOTOSHIA [id number] 07/08/2013 12:47:00 07/08/2013 23:59: 59 [facility] Outpatient POPE DOTOSHIA [id number] 06/14/2013 07:58:00 06/14/2013 23:59: 59 [facility] Outpatient NIGHAT BRAXTONELLEN Monteiro [id number] 06/07/2013 12:54:00 06/07/2013 23:59: 59 [facility]LS Outpatient TOSHIA POPE DO [id number] 04/05/2013 16:56:00 04/05/2013 23:59: 59 CLS Outpatient TOSHIA POPE DO [id number] 03/23/2013 08:38:00 03/23/2013 23:59: 59 [facility] Outpatient POPE DOTOSHIA [id number] 03/01/2013 09:26:00 03/01/2013 23:59: 59 [facility] Outpatient POPE DOTOSHIA [id number] 01/20/2013 14:35:00 01/20/2013 23:59: 59 [facility] Outpatient NIGHAT BRAXTONELLEN Monteiro [id number] 08/17/2012 16:36:00 08/17/2012 23:59: 59 [facility] Outpatient NIGHAT BRAXTONELLEN Monteiro [id number] 12/30/2011 12:10:00 12/30/2011 23:59: 59 C[facility] Outpatient [id number] 11/19/2012 13:52:00 Document Registration [id number] 11/02/2012 17:33:00 Document Registration [id number] 10/26/2012 17:00:00 Document Registration [id number] 10/22/2012 16:09:00 Document Registration [id number] 09/18/2012 14:56:00 Document Registration [id number] 06/23/2018 09:29:00 [facility] 23:59:59 CLS Outpatient VIKI SAAVEDRA [facility] E83.42 [id number] 05/26/2018 08:49:00 019 23:59:59 CLS Outpatient VIKI SAAVEDRA [facility] LAB ACUTE [place]PO[place] [id number] 05/21/2018 10:01:00 019 23:59:59 CLS Outpatient LAKEISHA LAKE APRN [facility] RAD ASTHMA [id number] 05/21/2018 09:57:00 019 23:59:59 CLS Outpatient MODE SCHILLING FACC, PAZ DEE CC DS [facility] LAB E11.9 [id number] 05/11/2018 11:11:00 018 15:40:00 DIS Emergency JOSE ALSTON [facility] ER SOB;WEAKNESS [id number] 06/29/2017 16:12:00 018 19:17:00 DIS Emergency ANIYAH CORBETT MD [facility] ER HIGH BLOOD SUGA R [id number] 06/24/2017 10:55:00 018 23:59:59 CLS Outpatient MODE SCHILLING FACC, PAZ MCGARRYP CC DS [facility] RAD CHEST DISCO MFORT R07.89 [id number] 05/20/2017 07:04:00 018 23:59:59 CLS Outpatient MODE SCHILLING FACC, PAZ MCGARRYP CC DS [facility] CARD CHEST DISCO MFORT R07.89 [id number] 01/16/2017 08:53:00 017 14:55:00 DIS Outpatient ERIC GLORIA DO [facility] SDC UMBILICAL HERNIA [id number] 01/14/2017 11:32:00 017 13:26:00 DIS Outpatient ERIC GLORIA DO [facility] PREOP UMBILICAL HERNIA [id number] 11/14/2016 06:44:00 017 10:08:00 DIS Outpatient ERIC GLORIA DO [facility] ENDO OCCULT POSITIVE STOOLS [id number] 11/11/2016 05:42:00 017 11:30:00 DIS Outpatient ERIC GLORIA DO [facility] PREOP OCCULT POSITIVE STOOLS [id number] 01/19/2016 10:23:00 016 23:59:59 CLS Outpatient YAN LARIOS DO [facility] RAD BAUER,COPD,ASTHMA [id number] 07/07/2015 10:01:00 016 23:59:59 CLS Outpatient MODE SCHILLING FACC, PAZ MCGARRYP CC DS [facility] CARD CAD,COPD,CA ROTID ARTERY NARROWING [id number] 07/04/2015 10:52:00 23:59:59 CLS Outpatient MODE SCHILLING FACC, PAZ DEE CC DS [facility] CARD CAD,COPD [id number] 02/23/2015 08:58:00 23:59:59 CLS Outpatient ERIC GLORIA DO [facility] RAD INCOMPLETE COLONOSCOPY [id number] 01/31/2015 11:46:00 15:00:00 DIS Outpatient ERIC GLORIA DO [facility] SDC HEMOCULT POSITIVE STOOL S [id number] 01/26/2015 05:53:00 23:59:59 CLS Outpatient GLORIA ERIC BLISS [facility] PREOP HEMOCULT POSITIVE STOOL S [id number] 06/06/2014 11:37:00 23:59:59 CLS Outpatient YAN LARIOS DO [facility] RT DYPNEA ON EXERCTION, PN EUMONIA [id number] 03/29/2013 07:36:00 23:59:59 CLS Outpatient ELLEN DISLANP [facility] RAD CHEST TIGHTNESS HX LUNG ABCESS [id number] 03/09/2013 06:45:00 15:00:00 DIS Outpatient MODE SCHILLING FACC, PAZ DEE CC DS [facility] CATH EXCERTIONAL DYSPNEA [id number] 10/12/2012 11:28:00 013 23:59:59 CLS Outpatient VIKI SAAVEDRA [facility] RAD DYSPNEA [id number] 07/15/2019 18:20:[address] Inpatient FELIX KERNS DO [facility] 4TH PELVIC FRACTURE [id number] 01/17/2015 16:25:00 Document Registration [id number] 07/28/2012 16:07:00 Document Registration
[2019-07-20 00:20] VITALS: BP 118/62
[2019-07-20] MEDS: CATHETER FLUSH 10 ML SYR IV SCH ×2 (06:05→09:14)
[2019-07-20] MEDS: metFORMIN 500 MG (GLUCOPHAGE) TAB PO SCH (06:05)
[2019-07-20 06:35] LABS: BASOPHILS # (AUTO) 0.1 10^3/uL (0.0-0.1); BASOPHILS % (AUTO) 2 % (0-10); EOSINOPHILS # (AUTO) 0.2 10^3/uL (0.0-0.3); EOSINOPHILS % (AUTO) 3 % (0-10); HEMATOCRIT 34 % (35-52); HEMOGLOBIN 10.6 G/DL (11.5-16.0); LYMPHOCYTES # (AUTO) 1.5 X 10^3 (1.0-4.0); LYMPHOCYTES % (AUTO) 31 % (12-44); MEAN CORPUSCULAR HEMOGLOBIN 24 PG (25-34); MEAN CORPUSCULAR HGB CONC 31 G/DL (32-36); MEAN CORPUSCULAR VOLUME 76 FL (80-99); MEAN PLATELET VOLUME 9.4 FL (7.4-10.4); MONOCYTES # (AUTO) 0.5 X 10^3 (0.0-1.0); MONOCYTES % (AUTO) 10 % (0-12); NEUTROPHILS # (AUTO) 2.6 X 10^3 (1.8-7.8); NEUTROPHILS % (AUTO) 54 % (42-75); PLATELET COUNT 329 10^3/uL (130-400); RED CELL DISTRIBUTION WIDTH 19.1 % (10.0-14.5); WHITE BLOOD COUNT 4.8 10^3/uL (4.3-11.0)
[2019-07-20 06:57] LABS: ALANINE AMINOTRANSFERASE 10 U/L (0-55); ALBUMIN 3.9 GM/DL (3.2-4.5); ALKALINE PHOSPHATASE 53 U/L (40-136); BILIRUBIN,TOTAL 0.6 MG/DL (0.1-1.0); BUN/CREATININE RATIO 11; CALCIUM 8.9 MG/DL (8.5-10.1); CARBON DIOXIDE 25 MMOL/L (21-32); CHLORIDE 101 MMOL/L (98-107); CREATININE SERUM 0.64 MG/DL (0.60-1.30); GFR ESTIMATED > 60; GLUCOSE 94 MG/DL (70-105); POTASSIUM 3.8 MMOL/L (3.6-5.0); SODIUM 137 MMOL/L (135-145); TOTAL PROTEIN 6.6 GM/DL (6.4-8.2)
[2019-07-20 08:00] VITALS: BP 127/80
--- NOTE | 2019-07-20 08:38 | Progress Note - Surgery ---
Subjective Date Seen by a Provider: Jul 20, 2019 Time Seen by a Provider: 08:04 Subjective/Events-last exam Patient denies any abdominal pain, N/V, melena or hematochezia, and hematemesis. She has no further complaints at this time. Review of Systems General: No Chills, No Fatigue HEENT: No Head Aches, No Visual Changes, No Dysphasia, No Sore Throat Pulmonary: No Dyspnea, No Cough Cardiovascular: No: Chest Pain, Palpitations, Edema, Lt Headedness Gastrointestinal: No: Nausea, Vomiting, Abdominal Pain, Diarrhea, Constipation, Melena, Hematochezia Genitourinary: No Dysuria, No Frequency, No Incontinence, No Hematuria Objective Exam Vital Signs Date Time Temp Pulse Resp B/P (MAP) Pulse Ox O2 Delivery O2 Flow Rate FiO2 07/20/19 08:19 93 Room Air 07/20/19 00:20 36.8 76 19 118/62 (80) 95 Room Air 07/19/19 20:00 Room Air 07/19/19 15:35 37.0 77 17 104/67 (79) 93 Room Air I & O 07/20/19 07:00 Intake Total 2007 ml Output Total 650 ml Balance 1357 ml Capillary Refill : Less Than 3 SecondsLess Than 3 Seconds General Appearance: No Apparent Distress, WD/WN, Chronically ill HEENT: PERRL/EOMI Neck: Non Tender, Supple Respiratory: Lungs Clear, Normal Breath Sounds, No Accessory Muscle Use, No Respiratory Distress Cardiovascular: Regular Rate, Rhythm, No Edema, No Gallop, No Murmur, Normal Peripheral Pulses Peripheral Pulses: 2+ Dorsalis Pedis (R), 2+ Left Dors-Pedis (L), 2+ Radial Pulses (R), 2+ Radial Pulses (L) Gastrointestinal: soft, no organomegaly; No distended Extremity: No Calf Tenderness, No Pedal Edema Neurologic/Psychiatric: Alert, Oriented x3, No Motor/Sensory Deficits, Normal Mood/Affect, 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 associate II-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 Norm as Tested Results Lab Laboratory Tests 07/19/19 11:20: Lab Scanned Report Transfusion Reaction Form 07/20/19 06:23: White Blood Count 4.8, Red Blood Count 4.48, Hemoglobin 10.6L, Hematocrit 34L, Mean Corpuscular Volume 76L, Mean Corpuscular Hemoglobin 24L, Mean Corpuscular Hemoglobin Concent 31L, Red Cell Distribution Width 19.1H, Platelet Count 329, Mean Platelet Volume 9.4, Neutrophils (%) (Auto) 54, Lymphocytes (%) (Auto) 31, Monocytes (%) (Auto) 10, Eosinophils (%) (Auto) 3, Basophils (%) (Auto) 2, Neutrophils # (Auto) 2.6, Lymphocytes # (Auto) 1.5, Monocytes # (Auto) 0.5, Eos inophils # (Auto) 0.2, Basophils # (Auto) 0.1, Sodium Level 137, Potassium Level 3.8, Chloride Level 101, Carbon Dioxide Level 25, Anion Gap 11, Blood Urea Nitrogen 7, Creatinine 0.64, Estimat Glomerular Filtration Rate > 60, BUN/Creatinine Ratio 11, Glucose Level 94, Calcium Level 8.9, Corrected Calcium 9.0, Total Bilirubin 0.6, Aspartate Amino Transf (AST/SGOT) 12, Alanine Aminot ransferase (ALT/SGPT) 10, Alkaline Phosphatase 53, Total Protein 6.6, Albumin 3.9 Assessment/Plan Assessment/Plan Assessment/Plan Melena - resolved Anemia - outpatient follow up and schedule for colonoscopy, once pelvic fracture is healed. Hiatal Hernia - referral for outpatient hernia repair. Clinical Quality Measures DVT/VTE Risk/Contraindication: Risk Factor Score Per Nursin RFS Level Per Nursing on Admit: 4+=Very High NEYDA BAUGH [facility] Jul 20, 2019 08:38
[2019-07-20] MEDS: PANTOPRAZOLE 40 MG (PROTONIX) VIAL IV SCH (09:14)
--- NOTE | 2019-07-20 10:06 | Occupational Ther Daily Note ---
OT Current Status-Daily Note Subjective Pt sitting upright in recliner at start of session, agreeable to OT tx with focus on UE exercises. Pt stated she is pretty tired today but she feels like her pain is better controlled. She did not verbalize a pain rating. Mental Status/Objective Patient Orientation: Normal For Age ADL-Treatment Therapy Code Descriptions/Definitions Functional [place] Measure: 0=Not Assessed/NA 4=Minimal Assistance 1=Total Assistance 5=Supervision or Setup 2=Maximal Assistance 6=Modified [place] 3=Moderate Assistance 7=Complete IndependenceSCALE: Activities may be completed with or without assistive devices. 6-Gtckpuqhhi-kpgtrmo completes the activity by him/herself with no assistance from a helper. 5-Set-up or Clean-up Assistance-helper sets up or cleans up; patient completes activity. Willis assists only prior to or following the activity. 4-Supervision or Touching Assistance-helper provides verbal cues and/or touching/steadying and/or contact guard assistance as patient completes activity. Assistance may be provided throughout the activity or intermittently. 3-Partial/Moderate Assistance-helper does LESS THAN HALF the effort. Willis lifts, holds or supports trunk or limbs, but provides less than half the effort. 2-Substantial/Maximal Assistance-helper does MORE THAN HALF the effort. Willis lifts or holds trunk or limbs and provides more than half the effort. 8-Ieyiluvap-xtrrgs does ALL the effort. Patient does none of the effort to complete the activity. Or, the assistance of 2 or more helpers is required for the patient to complete the activity. If activity was not attempted, code reason: 7-Patient Refused. 9-Not Applicable-not attempted and the patient did not perform the activity before the current illness, exacerbation or injury. 10-Not Attempted due to Environmental Limitations-(lack of equipment, weather restraints, etc.). 88-Not Attempted due to Medical Conditions or Safety Concerns. Other Treatment Pt seated upright in recliner. In order to increase BUE strength and functional endurance, pt performed x10 reps each of the following: shoulder flexion, elbow flexion, and finger flexion/extension. She required rest breaks between each exercises. OT educated pt on performing exercises throughout the day, she verbalized understanding. Post OT session, pt upright in recliner, call light in reach and all needs met. Education OT Patient Education: Correct positioning, Energy conservation, Exercise program, Progress toward Goal/Update tx plan, Purpose of tx/functional activities, Safety issues Teaching Recipient: Patient Teaching Methods: Demonstration, Discussion Response to Teaching: Verbalize Understanding, Return Demonstration OT Back Hoe Machine Operator Goals Back Hoe Machine Operator Goals Time Frame: Jul 23, 2019 Eating (QC): 6 Oral Hygiene (QC): 6 Toileting Hygiene (QC): 6 Shower/Bathe Self (QC): 6 Upper Body Dressing (QC): 6 Lower Body Dressing (QC): 6 On/Off Footwear (QC): 6 1=Demonstrate adherence to instructed precautions during ADL tasks. 2=Patient will verbalize/demonstrate understanding of assistive devices/modifications for ADL. 3=Patient will improve strength/tolerance for activity to enable patient to perform ADL's. OT Education/Plan Problem List/Assessment Assessment: Decreased Activ Tolerance, Decreased UE Strength, Impaired Funct Balance, Impaired I ADL's, Impaired Self-Care Skills Discharge Recommendations Plan/Recommendations: Continue POC Treatment Plan/Plan of Care Treatment,Training & Education: Yes Patient would benefit from OT for education, treatment and training to promote independence in ADL's, mobility, safety and/or upper extremity function for ADL's. Plan of Care: ADL Retraining, Functional Mobility, UE Funct Exercise/Act Treatment Duration: Jul 23, 2019 Frequency: 5 times per week Estimated Hrs Per Day: .25 hour per day Agreement: Yes Rehab Potential: Fair Time/GCodes Start Time: 09:50 Stop Time: 09:59 Total Time Billed (hr/min): 9 Billed Treatment Time 1, EX VERONICA LACEY OT Jul 20, 2019 10:06
[2019-07-20] MEDS ORDERED: HYDR-4196 PO (10:17)
[2019-07-20] MEDS ORDERED: SENN-20 PO (10:18)
[2019-07-20] MEDS ORDERED: PANT40TA2 PO (10:19)
[2019-07-20] MEDS ORDERED: SUCR1TAB36 PO (10:19)
--- NOTE | 2019-07-20 10:21 | D/C HH Face to Face Order ---
D/C Face to Face Orders Reconcile Patient Problems Problems Reviewed?: Yes Instructions for Patient Via [facility], Patient Instructions/FollowUp: [facility] 1 week Physician to follow Patient: [facility] Discharge Diet for Home: No Restrictions Patient Problems: Debility Pelvic fracture L1 fracture Gastric ulcers Goals for Patient: [place] Patient Data-Allergies,Ht & Wt Patient Allergies: Coded Allergies: Sulfa (Sulfonamide Antibiotics) (Verified Allergy, Intermediate, 01/14/17) Height (Feet): 5 Height (Inches): 7.00 Weight (Pounds): 130 Weight (Ounces): 0.2 Home Health Need/Face to Face Date of Face to Face: Jul 20, 2019 Clinical Findings: Generalized weakness and fatigue, Instability, Muscle weakness, Pain with ambulation I have seen Pt [id number]: Yes Discharged To: Home Diagnosis/Conditions: Debility Pelvic fracture L1 fracture Gastric ulcers Patient is Homebound due to: CognItive deficits, Non-weight bearing, Pain w/ambulation Homebound Status Due to the above stated illness, injury or surgical procedure (medical condition or diagnosis) and associated clinical findings, the patient is homebound because of his/her inability to leave home except with aid of a supportive device and/or person AND leaving the home requires a considerable and taxing effort or is medically contraindicated. Pt req the following assistanc: [facility] Nursing Orders Home Health Services Order: Nursing Services, Customer Account Manager-Evaluate & Treat, Physical Therapy-Evaluate & Treat Home Health Infusion Therapy Line Start Date: Jul 15, 2019 Certify Stmt I certify that this patient is under my care and that I, a nurse practitioner or a physician; a ortho assistant working with me, had a face to face encounter that - meets the physician face to face encounter requirements with this patient as micheal ed. FELIX KERNS DO Jul 20, 2019 10:21
--- NOTE | 2019-07-20 10:27 | Physical Therapy Daily Note ---
PT Daily Note-Current Subjective Patient agrees to PT. Pain Numeric Pain Scale: 5-Moderate Pain Location: Right Location Body Site: Pelvic Pain Description: Acute Mental Status Patient Orientation: Normal For Age Transfers SCALE: Activities may be completed with or without assistive devices. 7-Aohyjqdfur-lxonfjy completes the activity by him/herself with no assistance from a helper. 5-Set-up or Clean-up Assistance-helper sets up or cleans up; patient completes activity. [place] assists only prior to or following the activity. 4-Supervision or Touching Assistance-helper provides verbal cues and/or touching/steadying and/or contact guard assistance as patient completes activity. Assistance may be provided throughout the activity or intermittently. 3-Partial/Moderate Assistance-helper does LESS THAN HALF the effort. [place] lifts, holds or supports trunk or limbs, but provides less than half the effort. 2-Substantial/Maximal Assistance-helper does MORE THAN HALF the effort. [place] lifts or holds trunk or limbs and provides more than half the effort. 3-Erybhldyh-avjadm does ALL the effort. Patient does none of the effort to complete the activity. Or, the assistance of 2 or more helpers is required for the patient to complete the activity. If activity was not attempted, code reason: 7-Patient Refused. 9-Not Applicable-not attempted and the patient did not perform the activity before the current illness, exacerbation or injury. 10-Not Attempted due to Environmental Limitations-(lack of equipment, weather restraints, etc.). 88-Not Attempted due to Medical Conditions or Safety Concerns. Roll Left & Right (QC): 6 Lying to Sitting/Side of Bed(Q: 6 Sit to Stand (QC): 6 Chair/Mhf-ot-Rmmrp Xfer(QC): 6 Toilet Transfer (QC): 6 Weight Bearing Right Lower Extremity: Right Weight Bearing/Tolerated Left Lower Extremity: Left Weight Bearing/Tolerated Gait Training Does the Patient Walk?: Yes Distance: 200' Walk 10 feet (QC): 6 Walk 50 ft with 2 Turns(QC): 6 Walk 150 ft (QC): 6 Gait Assistive Device: FWW slow, antalgic, step to gait sequence Exercises Seated Therapy Exercises: Ankle pumps, Long arc quads Seated Reps: 15 Assessment Patient much improved on this date and good pain control. PT instructed patient to be up ad juanita during day to ensure safe return to home with family and home health intervention. PT Farm Management Professor Goals Custodial Goals PT Farm Management Professor Goals Time Frame: Jul 23, 2019 Roll Left & Right (QC): 6 Sit to Lying (QC): 6 Lying-Sitting on Side/Bed(QC): 6 Sit to Stand (QC): 6 Chair/Guc-og-Bjumi Xfer(QC): 6 Toilet Transfer (QC): 6 Car Transfer (QC): 6 Does the Patient Walk: Yes Walk 10 feet (QC): 6 Walk 50ft with 2 Turns (QC): 6 Walk 150 ft (QC): 6 Walking 10ft on Uneven Surface: 6 PT Plan Treatment/Plan Treatment Plan: Continue Plan of Care Treatment Plan: Bed Mobility, Education, Functional Activity Av, Functional Strength, Gait, Safety, Therapeutic Exercise, Transfers Treatment Duration: Jul 23, 2019 Frequency: 11 times per week Estimated Hrs Per Day: .5 hour per day Patient and/or Family Agrees t: Yes Time/GCodes Time In: 908 Time Out: 931 Total Billed Treatment Time: 23 Total Billed Treatment 1 visit GT x 2 23 min FAIZA [place] PT Jul 20, 2019 10:27
--- NOTE | 2019-07-20 11:44 | Progress Note ---
REJI SALINAS,MED STUDENT 07/20/19 1144: Progress Note Hospital course: Ms. Galdamez is a 68yo female who presented to [facility] ED on 07/15/2019 due to right hip and leg pain after a fall on her right hip. Her knee "gave out" on her while she was rising from her chair and she fell to the floor. She has had a chronic problem of her knee "giving out". Abdomen/pelvis CT confirmed a nondisplaced right inferior ischial ramus fracture, and a mild anterior compression fracture at L1, and the ischial ramus fracture was determined to not be a candidate for surgical intervention. During her hospital stay she experienced an episode of coffee ground emesis and was found to be anemic, so an EGD was performed which revealed gastric ulcurs, a hiatal hernia and esophagitis. Due to her anemia, she received a total of 2 RBC transfusions, and received 2 iron infusions. She was also started on Protonix. Her hemoglobin improved to 10.6, and she did not experience another episode of coffee ground emesis. General surgery recommended to her that she discuss a colonoscopy on an outpatient basis. Pt. worked with PT and OT during her stay, and due to pain with ambulation, general weakness and fatigue, and instability, she will return home with home health. LAYA KERNS DO 07/20/19 2010: Supervisory-Addendum Brief Verification & Attestation Participated in pt care: history, MDM, physical Personally performed: exam, history, MDM, supervision of care Care discussed with: Medical Student Procedures: n/a Results interpretation: Verified all documentation Verification and Attestation of Medical Student E/M Service A medical student performed and documented this service in my presence. I reviewed and verified all information documented by the medical student and made modifications to such information, when appropriate. I personally performed the physical exam and medical decision making. Laya Kerns Jul 20, 2019,20:10 REJI SALINAS,MED STUDENT Jul 20, 2019 11:44 LAYA KERNS DO Jul 20, 2019 20:10
--- NOTE | 2019-07-20 12:15 | NUR ---
CM/SS visited with the patient for discharge planning. Plan: The patient will return home with Home Health. Home Health: The patient was provided with a patient preference form and chose [facility]. MICKI/SS called the agency and faxed over a referral. The patient expressed that she would like to have a bedside commode. Insurance does not cover the cost of the commodes. [employer] does sell them for around 38-40 dollars. The patient states she cannot afford that right now. CM/SS gave the patient a [employer] card for 15 dollars to assist with the cost then ask family members for the additional cost. Addendum: 07/20/19 at 1328 by [facility] DME: The patient needed a Front Wheeled Walker. She chose [facility]. CM/SS called and faxed over medical records and script. They will deliver to the hospital.
--- NOTE | 2019-07-20 13:51 | Physical Therapy Progress Note ---
Therapy Progress Note Patient dismissing to home with family and home health on this date. Patient will require a FWW for home use. Patient is currently up ad juanita in room to toilet. FAIZA [place] PT Jul 20, 2019 13:51
[2019-07-20 16:12] VITALS: BP 127/80
--- NOTE | 2019-07-20 20:15 | Discharge Summary ---
Discharge Summary Hospital Course Was the Problem List Reviewed?: Yes Problems/Dx: (1) Pelvic fracture Status: Acute Qualifiers: Qualified Codes: S32.601A - Unspecified fracture of right ischium, initial encounter for closed fracture (2) Gastric ulcer (3) Anemia (4) Microcytic anemia (5) Fall on same level Status: Acute Qualifiers: Qualified Codes: W18.30XA - Fall on same level, unspecified, initial encounter Hospital Course Date of Admission: Jul 15, 2019 at 18:20 Admission Diagnosis : Family Physician/Provider: Oleg Fajardo Date of Discharge: 07/20/19 Discharge Diagnosis: pelvic fracture, L1 compression fracture, gastric ulcer bleed, transfusion 2 units required, s/p EGD Hospital Course: (Per Dean Barillas [facility]) Ms. Galdamez is a 68yo female who presented to [facility] ED on 07/15/2019 due to right hip and leg pain after a fall on her right hip. Her knee "gave out" on her while she was rising from her chair and she fell to the floor. She has had a chronic problem of her knee "giving out". Abdomen/pelvis CT confirmed a nondisplaced right inferior ischial ramus fracture, and a mild anterior compression fracture at L1, and the ischial ramus fracture was determined to not be a candidate for surgical intervention. During her hospital stay she experienced an episode of coffee ground emesis and was found to be anemic, so an EGD was performed which revealed gastric ulcurs, a hiatal hernia and esophagitis. Due to her anemia, she received a total of 2 RBC transfusions, and received 2 iron infusions. She was also started on Protonix. Her hemoglobin improved to 10.6, and she did not experience another episode of coffee ground emesis. General surgery recommended to her that she discuss a colonoscopy on an outpatient basis. Pt. worked with PT and OT during her stay, and due to pain with ambulation, general weakness and fatigue, and instability, she will return home with home health. Hospital course: Pt had an uneventful but lengthy hospital course for pelvic fracture unable to ambulate, PT was consulted, inpatient rehab approval was submitted to insurance but that was denied, gastric ulcer caused GI bleed and EGD performed revealing old blood. Proton pump inhibitor and Carafate initiated along with iron infusion. Overall her bowels remain normal and she was discharged on home health with pain medication and she will have close follow up with PCP. Labs and Pending Lab Test: Laboratory Tests 07/20/19 06:23: White Blood Count 4.8, Red Blood Count 4.48, Hemoglobin 10.6L, Hematocrit 34L, Mean Corpuscular Volume 76L, Mean Corpuscular Hemoglobin 24L, Mean Corpuscular Hemoglobin Concent 31L, Red Cell Distribution Width 19.1H, Platelet Count 329, Mean Platelet Volume 9.4, Neutrophils (%) (Auto) 54, Lymphocytes (%) (Auto) 31, Monocytes (%) (Auto) 10, Eosinophils (%) (Auto) 3, Basophils (%) (Auto) 2, Neutrophils # (Auto) 2.6, Lymphocytes # (Auto) 1.5, Monocytes # (Auto) 0.5, Eosinophils # (Auto) 0.2, Basophils # (Auto) 0.1, Sodium Level 137, Potassium Level 3.8, Chloride Level 101, Carbon Dioxide Level 25, Anion Gap 11, Blood Urea Nitrogen 7, Creatinine 0.64, Estimat Glomerular Filtration Rate > 60, BUN/Creatinine Ratio 11, Glucose Level 94, Calcium Level 8.9, Corrected Calcium 9.0, Total Bilirubin 0.6, Aspartate Amino Transf (AST/SGOT) 12, Alanine Aminotransferase (ALT/SGPT) 10, Alkaline Phosphatase 53, Total Protein 6.6, Albumin 3.9 Home Meds Active Carafate (Sucralfate) 1 Gm Tablet 1 Gm PO AC Protonix (Pantoprazole Sodium) 40 Mg Tablet.dr 40 Mg PO BID Senna-Time S Tablet (Sennosides/Docusate Sodium) 1 Each Tablet 1 Each PO BID [place] 10-325 Tablet (Hydrocodone/Acetaminophen) 1 Each Tablet 1 Tab PO Q6H PRN MDD 5 TABS Reported Tylenol Extra Strength (Acetaminophen) 500 Mg Tablet 1,000 Mg PO Q8H PRN Magnesium (Magnesium Oxide) 400 Mg Tablet 400 Mg PO BID LAST FILLED ON 05-24-2019 #60/30 DAY SUPPLY Pravastatin Sodium 20 Mg Tablet 20 Mg PO HS Symbicort 160-4.5 Mcg Inhaler (Budesonide/Formoterol Fumarate) 10.2 Gm Hfa.aer.ad 2 Puff PO BID LAST FILLED 05-24-2019 #1 BOX/ 30 DAY SUPPLY Ventolin Hfa (Albuterol Sulfate) 18 Gm Hfa.aer.ad 2 Puff PO Q4H PRN Zafirlukast 20 Mg Tablet 20 Mg PO BID K-Tab ER (Potassium Chloride) 10 Meq Tablet.er 10 Meq PO 1800 TAKES WITH DINNER Aspirin EC (Aspirin) 81 Mg Tablet.dr 81 Mg PO DAILY Metformin HCl 500 Mg Tablet 750 Mg PO HS TAKES 1 & (500MG) TABS PM Metformin HCl 500 Mg Tablet 1,250 Mg PO DAILY TAKES 2 & (500MG) TABS AM Assessment/Pt Instructions [facility] 1 week Discharge Planning: <30 minutes discharge planning Discharge Instructions Discharge Diet: No Restrictions Activity as Tolerated: Yes Discharge Physical Examination Vital Signs Vital Signs Date Time Temp Pulse Resp B/P (MAP) Pulse Ox O2 Delivery O2 Flow Rate FiO2 07/20/19 16:12 36.4 87 18 127/80 93 Room Air 1.00 General Appearance: No Apparent Distress, WD/WN Respiratory: Chest Non Tender, Lungs Clear, Normal Breath Sounds, No Accessory Muscle Use, No Respiratory Distress Cardiovascular: Regular Rate, Rhythm, No Edema, No Gallop, No JVD, No Murmur, Normal Peripheral Pulses Neurologic/Psychiatric: Alert, Oriented x3, No Motor/Sensory Deficits, Normal Mood/Affect Allergies: Coded Allergies: Sulfa (Sulfonamide Antibiotics) (Verified Allergy, Intermediate, 01/14/17) Discharge Summary Date of Admission Jul 15, 2019 at 18:20 Date of Discharge Jul 20, 2019 at 16:39 Discharge Date: Jul 20, 2019 Discharge Diagnosis Assessment: Severe pain Pelvic fracture inoperable Gastric ulcers causing hematemesis Anemia with microcytosis Severe anemia with transfusions given Plan: PPI Hold Lovenox Pain meds Monitor hgb (1) Pelvic fracture Status: Acute Qualifiers: Qualified Codes: S32.601A - Unspecified fracture of right ischium, initial encounter for closed fracture (2) Gastric ulcer (3) Anemia (4) Microcytic anemia (5) Fall on same level Status: Acute Qualifiers: Qualified Codes: W18.30XA - Fall on same level, unspecified, initial encoun ter Clinical Quality Measures DVT/VTE Risk/Contraindication: Risk Factor Score Per Nursin RFS Level Per Nursing on Admit: 4+=Very High FELIX KERNS DO Jul 20, 2019 20:15
== END 2019-07-20 16:39 | disposition home health service (06) ==
LOC: EDUNIT# 15:14 → ER 15:17 → 4TH 18:20
PROVIDERS: ADMIT Family Medicine; ATTEND Internal Medicine
DX: S32.601A Unspecified fracture of right ischium, initial encounter for closed fracture (principal); S32.010A Wedge compression fracture of first lumbar vertebra, initial encounter for closed fracture; K25.0 Acute gastric ulcer with hemorrhage; D50.9 Iron deficiency anemia, unspecified; W18.30XA Fall on same level, unspecified, initial encounter; K44.9 Diaphragmatic hernia without obstruction or gangrene; K21.0 Gastro-esophageal reflux disease with esophagitis; Z79.82 Long term (current) use of aspirin; Z79.84 Long term (current) use of oral hypoglycemic drugs; Z79.899 Other long term (current) drug therapy; Z88.2 Allergy status to sulfonamides; J44.9 Chronic obstructive pulmonary disease, unspecified; E78.00 Pure hypercholesterolemia, unspecified; K52.9 Noninfective gastroenteritis and colitis, unspecified; E11.9 Type 2 diabetes mellitus without complications; F41.9 Anxiety disorder, unspecified; K29.71 Gastritis, unspecified, with bleeding
CPT/HCPCS: 36415; 73630; 74176; 80048; 80053; 82274; 83540; 85014; 85018; 85025; 86850; 86900; 86901; 86920; 94640; 94664; 94760; G0378

== ENCOUNTER → 2019-09-22 | Outpatient (CLI) | payer MEDICARE, MEDICAID ==
[~2019-09-22] MED LIST changes: +ACET-2267 PO; +ALBU18HF2 PO; +ASPI-983 PO; +BUDE10.2 PO; +HYDR-4196 PO; +MAGN400T39 PO; +PANT40TA2 PO; +POTA10TA PO; +SENN-20 PO; +SUCR1TAB36 PO; +ZFR20T PO
--- NOTE | 2019-09-22 09:28 | Diagnostic Imaging Report ---
INDICATION: Fall with pelvic injury. TIME OF EXAM: 9:08 AM. COMPARISON: 07/15/2019. FINDINGS: There is a healing fracture of the right inferior pubic ramus. Moderate callus formation is noted on today's study. The remaining rami are intact. The femoroacetabular alignment is normal bilaterally. The SI joints and symphysis are not widened. No hip fracture is seen. IMPRESSION: Healing right inferior pubic ramus fracture. Dictated by: Dictated on workstation # [id number]
== END ==
LOC: RAD 08:40
PROVIDERS: ATTEND Nurse Practitioner Family
DX: S32.501D Unspecified fracture of right pubis, subsequent encounter for fracture with routine healing (principal); W19.XXXD Unspecified fall, subsequent encounter
CPT/HCPCS: 72170

== ENCOUNTER 2019-10-12 10:42 | Day surgery (SDC) | payer MEDICARE, MEDICAID ==
[~2019-10-12] VITALS: Ht 162 cm; Wt 61.0 kg
[~2019-10-12 10:42] MED LIST changes: +LIDOCAINE 1% INJ 20 ML 20 ML VIAL ONE
[2019-10-12] MEDS ORDERED: LIDOCAINE 1% INJ 20 ML 20 ML VIAL INJ ONE (10:45)
[2019-10-12 10:54] VITALS: BP 135/107
--- OUTSIDE RECORDS SUMMARY | 2019-10-12 11:19 | XMS REPORT ---
Author Author Zoie DISLA Organization [address] Address [address] [place] [address] Care Team Providers Care Housekeeping Staff Name Role Phone ELLEN DISLA Unavailable PROBLEMS Type Condition ICD9-CM Code STZ13-RJ Code Onset Dates Condition S tatus SNOMED Code Problem Type 2 diabetes mellitus wit h other specified complication, without long-term current use of insulin E11.69 Active 00862276 Problem Other chronic pain G89.29 Active 8 6909440 Problem Chronic airway obstruction, not elsewhere classified J44.9 Active 14713131 Problem CAD (coronary artery disease) I25.10 Active 99021810 Problem Other and unspecified hyperlipidemia E78.5 Active 67306700 ALLERGIES No Information ENCOUNTERS Encounter Location Date Diagnosis [address] [address] September, [address] [address] September, Anemia, unspecified type D64.9 ; Other a nd unspecified hyperlipidemia E78.5 and Type 2 diabetes mellitus with other specified complication, without long-term current use of insulin E11.[address] [facility] [id number] [address] September, Other chronic pain G89.29 ; Chronic airw ay obstruction, not elsewhere classified J44.9 ; Other and unspecified hyperlipidemia E78.5 ; Type 2 diabetes mellitus with other specified complication, without long-term current use of insulin E11.69 ; Anemia, unspecified type D64.9 and Status post fracture of pelvis Z87.[id number] [address] Jul, [address] [id number] [place] [address] [place] [address] Jul, Hospital discharge follow-up Z09 ; Close d nondisplaced fracture of right ischium with routine healing, unspecified fracture morphology, subsequent encounter S32.601D and Peptic ulcer of stomach, unspecified chronicity K25.[address] [id number] [place] [address] Jul, [facility] [address] [place] [address] [address] [facility] [id number] [place] [address] Jul, Type 2 diabetes mellitus with other spec ified complication, without long-term current use of insulin E11.69 [facility] [address] [place] [address] [facility] [id number] [place] [address] Jun, [facility] [address] [id number] [place] [id number] Apr, Type 2 diabetes mellitus with other spec ified complication, without long-term current use of insulin E11.69 ; Chronic airway obstruction, not elsewhere classified J44.9 and Acute nasopharyngitis J00 [facility] [address] [id number] [place] [id number] Mar, Acute nasopharyngitis J00 [facility] [address] [id number] [place] [id number] Mar, [facility] [address] [id number] [place] [id number] Mar, Acute nasopharyngitis J00 [facility] [address] [id number] [place] [id number] Mar, Encounter for immunization Z23 [facility] [address] [id number] [facility] [place] [address] Feb, Type 2 diabetes mellitus wit h other specified complication, without long-term current use of insulin E11.69 [facility] [address] [id number] [place] [id number] Dec, Type 2 diabetes mellitus with other spec ified complication, without long-term current use of insulin E11.69 ; Chronic airway obstruction, not elsewhere classified J44.9 ; CAD (coronary artery disease) I25.10 and Deformity of toe of left foot M20.62 [facility] [address] [facility] [id number] [place] [id number] Aug, Bilateral impacted cerumen H61.23 [facility] [address] [facility] [id number] [place] [id number] Aug, Bilateral impacted cerumen H61.23 ; CAD (coronary artery disease) I25.10 and Other and unspecified hyperlipidemia E78.5 [facility] [address] [facility] [id number] [place] [id number] Jun, Encounter for Medicare annual wellness e xam Z00.00 ; Type 2 diabetes mellitus with other specified complication, without long-term current use of insulin E11.69 ; Chronic airway obstruction, not elsewhere classified J44.9 ; CAD (coronary artery disease) I25.10 ; Other and unspecified hyperlipidemia E78.5 and Breast cancer screening Z12.31 [facility] [id number] [place] [address], [place] [id number] 11 Jun, 2018 DM w/o complication type II E11.9 ; Appetizer Packer 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, not elsewhere classified J44.9 ; CAD (coronary artery disease) I25.10 and Vertigo R42 [facility] [address] [id number] [place] [id number] Feb, Encounter for immunization Z23 [facility] [address] [facility] [id number] [place] [id number] Jan, DM w/o complication type II E11.9 and Ch ronic airway obstruction, not elsewhere classified J44.9 [facility] [address] [facility] [id number] [place] [id number] Dec, CAD (coronary artery disease) I25.10 [facility] [address] [facility] [id number] [place] [id number] Oct, DM w/o complication type II E11.9 ; Appetizer Packer 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, not elsewhere classified J44.9 and CAD (coronary artery disease) I25.10 [facility] [address] [facility] [id number] [place] [id number] Jul, DM w/o complication type II E11.9 ; Appetizer Packer 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, not elsewhere classified J44.9 and Infective urethritis N34.2 [facility] [place] [address] [id number] [place] [id number] 05 Jun, 2017 Syncope and collapse R55 [facility] [place] [address] [id number] [place] [id number] 02 Jun, 2017 [facility] [place] [address] [id number] [place] [id number] May, Bronchitis J40 [facility] [place] [address] [id number] [place] [id number] May, [facility] [place] [address] [id number] [place] [id number] May, [facility] [place] [address] [id number] [place] [id number] Apr, DM w/o complication type II E11.9 [facility] [place] [address] [id number] [place] [id number] Mar, DM w/o complication type II E11.9 ; Appetizer Packer 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, not elsewhere classified J44.9 ; Dysuria R30.0 ; Tinea pedis of right foot B35.3 and Encounter for immunization Z23 [facility] [place] [address] [id number] [place] [id number] 04 Feb, 2017 Medicare welcome exam Z00.00 [facility] [place] [address] [id number] [place] [id number] Jan, Chronic airway obstruction, not elsewher e classified J44.9 [facility] [place] [address] [id number] [place] [id number] Dec, [facility] [place] [address] [id number] [place] [id number] Dec, DM w/o complication type II E11.9 ; Appetizer Packer 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, not elsewhere classified J44.9 and Acute cystitis with hematuria N30.01 [facility] [place] [address] [id number] [place] [id number] Oct, Encounter for screening for malignant ne oplasm of colon Z12.11 [facility] [place] [address] [id number] [place] [id number] Oct, Medicare welcome exam Z00.00 [facility] [place] [address] [id number] [place] [id number] September, Medicare welcome exam Z00.00 and Encount er for immunization Z23 [facility] [place] [address] [id number] [place] [id number] September, Bronchitis J40 [facility] [place] [address] [id number] [place] [id number] September, Bronchitis J40 [facility] [place] [address] [id number] [place] [id number] September, Other and unspecified hyperlipidemia E78 .5 [facility] [place] [address] [id number] [place] [id number] Aug, DM w/o complication type II E11.9 ; Appetizer Packer 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, not elsewhere classified J44.9 and Other and unspecified hyperlipidemia E78.5 [facility] [place] [address] [id number] [place] [id number] May, DM w/o complication type II E11.9 and Ch ronic airway obstruction, not elsewhere classified J44.9 [facility] [place] [address] [id number] [place] [id number] Apr, Acute cystitis with hematuria N30.01 [facility] [place] [address] [id number] [place] [id number] Feb, DM w/o complication type II E11.9 [facility] [place] [address] [id number] [place] [id number] Feb, Chronic airway obstruction, not elsewher e classified J44.9 ; DM w/o complication type II E11.9 and Encounter for immunization Z23 [facility] [place] [address] [id number] [place] [id number] Dec, [facility] [place] [address] [id number] [place] [id number] Nov, Chronic airway obstruction, not elsewher e classified J44.9 [facility] [place] [address] [id number] [place] [id number] Oct, DM w/o complication type II E11.9 [facility] [address] [id number] [address] [place] [address] Oct, [facility] [place] [address] [id number] [place] [id number] Aug, Chronic airway obstruction, not elsewher e classified J44.9 and DM w/o complication type II E11.9 [facility] [place] [address] [id number] [place] [id number] Aug, Chronic airway obstruction, not elsewher e classified J44.9 [facility] [place] [address] [id number] [place] [id number] Aug, DM w/o complication type II E11.9 and Ch ronic airway obstruction, not elsewhere classified J44.9 [facility] [place] [address] [id number] [place] [id number] Jul, [facility] [place] [address] [id number] [place] [id number] Jul, DM w/o complication type II E11.9 [facility] [place] [address] [id number] [place] [id number] Jun, [facility] [place] [address] [id number] [place] [id number] Jun, [facility] [place] [address] [id number] [place] [id number] Jun, Chronic airway obstruction, not elsewher e classified J44.9 ; DM w/o complication type II E11.9 and Other and unspecified hyperlipidemia E78.5 [facility] [place] [address] [id number] [place] [id number] Jun, CAD (coronary artery disease) I25.10 and Dizziness R42 [facility] [place] [address] [id number] [place] [id number] Jun, Bronchitis J40 [facility] [place] [address] [id number] [place] [id number] May, Hematoma T14.8 [facility] [place] [address] [facility] [id number] [place] [id number] May, [facility] [place] [address] [facility] [id number] [place] [id number] May, Bronchitis J40 [facility] [place] [address] [facility] [id number] [place] [id number] Apr, Bronchitis J40 [facility] [address] [facility] [id number] [address] [place] [address] Apr, [facility] [place] [address] [facility] [id number] [place] [id number] Mar, [facility] [address] [id number] [place] [address] [id number] Mar, [facility] [place] [address] [facility] [id number] [place] [id number] Mar, [facility] [id number] [place] [address] [id number] Mar, [facility] [place] [address] [facility] [id number] [place] [id number] Mar, SOB (shortness of breath) R06.02 [facility] [place] [address] [facility] [id number] [place] [id number] Feb, Urinary tract infection, site not specif ied N39.0 and Hematuria, unspecified R31.9 [facility] [place] [address] [facility] [id number] [place] [id number] Feb, DM w/o complication type II E11.9 ; Enco unter for immunization Z23 and Chronic airway obstruction, not elsewhere classified J44.9 [facility] [place] [id number] [id number] Jan, [facility] [id number] [id number] Jan, [facility] [place] [address] [id number] [place] [id number] Dec, [facility] [place] [address] [id number] [place] [id number] Dec, [facility] [place] [address] [id number] [place] [id number] Dec, [facility] [place] [address] [id number] [place] [id number] Dec, [facility] [place] [address] [id number] [place] [id number] Dec, Blood in the stool 578.1 [facility] [place] [address] [id number] [place] [id number] Nov, [facility] [place] [address] [id number] [place] [id number] Nov, Colon cancer screening V76.51 [facility] [address] [id number] [place] [id number] Nov, Vertigo 780.4 [facility] [place] [address] [id number] [place] [id number] Nov, Routine gynecological examination V72.31 ; Pap test, as part of routine gynecological examination V76.2 ; Breast cancer screening V76.10 ; Postmenopausal V49.81 and Colon cancer screening V76.51 [facility] [address] [id number] [place] [id number] Nov, [facility] [address] [id number] [place] [id number] Nov, [facility] [address] [id number] [address] [place] [address] Nov, [facility] [address] [id number] [place] [id number] Oct, Diabetes 250.00 ; COPD (chronic obstruct misha pulmonary disease) 496 and GERD (gastroesophageal reflux disease) 530.81 [facility] [address] [facility] [id number] [address] [place] [address] Oct, [facility] [address] [id number] [place] [id number] Oct, [facility] [address] [id number] [place] [id number] Oct, [facility] [place] [address] [facility] [id number] [place] [id number] Oct, Reflux 530.81 [facility] [address] [facility] [id number] [address] [place] [address] Oct, [facility] [place] [address] [facility] [id number] [place] [id number] Oct, [facility] [place] [address] [facility] [id number] [place] [id number] Oct, [facility] [place] [address] [facility] [id number] [place] [id number] Oct, Dysuria 788.1 [facility] [place] [address] [facility] [id number] [place] [id number] Oct, Dysuria 788.1 [facility] [address] [facility] [id number] [address] [place] [address] September, [facility] [place] [address] [facility] [id number] [place] [id number] September, Diabetes 250.00 and COPD (chronic obstru ctive pulmonary disease) 496 [facility] [place] [address] [facility] [id number] [place] [id number] September, [facility] [place] [address] [facility] [id number] [place] [id number] September, [facility] [address] [id number] [id number] September, [facility] [place] [address] [facility] [id number] [place] [id number] Aug, Osteoarthritis 715.90 ; Diabetes 250.00 and COPD (chronic obstructive pulmonary disease) 496 [facility] [place] [address] [facility] [id number] [place] [id number] Aug, Pure hypercholesterolemia 272.0 ; Essent ial hypertension, benign 401.1 and Loss of weight 783.21 [facility] [address] [id number] [address] [place] [address] Aug, [facility] [address] [id number] [address] [place] [address], [place] [address] Aug, [facility] [place] [address] [id number] [place] [id number] Jul, [facility] [address] [id number] [address] [place] [address], [place] [address] Jul, [facility] [address] [id number] [address] [place] [address], [place] [address] Jun, [facility] [address] [id number] [address] [place] [address], [place] [address] Jun, [facility] [place] [address] [id number] [place] [id number] Jun, [facility] [address] [facility] [id number] [address] [place] [address], [place] [address] May, [facility] [place] [address] [id number] [place] [id number] May, [facility] [place] [address] [id number] [place] [id number] Apr, [facility] [address] [id number] [address] [place] [address], [place] [address] Apr, [facility] [place] [address] [id number] [place] [id number] Apr, [facility] [address] [id number] [address] [place] [address], [place] [address] Apr, [facility] [place] [address] [id number] [place] [id number] Apr, [facility] [address] [id number] [address] [place] [address], [place] [address] Apr, [facility] [place] [address] [id number] [place] [id number] Feb, [facility] [address] [id number] [address] [place] [address], [place] [address] Feb, [facility] [place] [address] [id number] [place] [id number] Feb, [facility] [address] [id number] [address] [place] [address], [place] [address] Feb, [facility] [address] [id number] [address] [place] [address], [place] [address] Jan, [facility] [place] [address] [id number] [place] [id number] Jan, [facility] [address] [id number] [address] [place] [address], [place] [address] Jan, [facility] [place] [address] [id number] [place] [id number] Jan, [facility] [address] [id number] [address] [place] [address], [place] [address] Jan, [facility] [address] [facility] [id number] [address] [place] [address], [place] [address] Dec, [facility] [address] [id number] [address] [place] [address], [place] [address] Dec, [facility] [place] [address] [id number] [place] [id number] September, [facility] [address] [id number] [address] [place] [address], [place] [address] September, [facility] [address] [id number] [address] [place] [address], [place] [address] September, [facility] [place] [address] [id number] [place] [id number] September, [facility] [place] [address] [id number] [place] [id number] September, [facility] [address] [id number] [address] [place] [address], [place] [address] September, [facility] [place] [address] [id number] [place] [id number] Aug, [facility] [address] [id number] [address] [place] [address], [place] [address] Aug, [facility] [address] [id number] [address] [place] [address], [place] [address] Jul, [facility] [place] [address] [id number] [place] [id number] Jul, [facility] [address] [id number] [address] [place] [address], [place] [address] Jul, [facility] [place] [address] [id number] [place] [id number] Jun, [facility] [address] [id number] [address] [place] [address], [place] [address] Jun, [facility] [address] [id number] [address] [place] [address], [place] [address] Jun, [facility] [place] [address] [id number] [place] [id number] Jun, [facility] [place] [address] [id number] [place] [id number] May, [facility] [address] [facility] [id number] [address] [place] [address], [place] [address] May, [facility] [address] [facility] [id number] [address] [place] [address], [place] [address] Apr, [facility] [place] [address] [id number] [place] [id number] Mar, [facility] [address] [facility] [id number] [address] [place] [address], [place] [address] Mar, [facility] [address] [id number] [address] [place] [address], [place] [address] Mar, [facility] [address] [facility] [id number] [address] [place] [address], [place] [address] Mar, [facility] [place] [address] [id number] [place] [id number] Mar, [facility] [place] [address] [id number] [place] [id number] Feb, [facility] [address] [id number] [address] [place] [address] Feb, [facility] [place] [address] [id number] [place] [id number] Feb, [facility] [address] [facility] [id number] [address] [place] [address] Feb, [facility] [place] [address] [id number] [place] [id number] Feb, [facility] [address] [id number] [address] [place] [address] Feb, [facility] [place] [address] [id number] [place] [id number] Jan, [facility] [place] [address] [id number] [place] [id number] Dec, [facility] [place] [address] [id number] [place] [id number] Nov, [facility] [place] [address] [id number] [place] [id number] Oct, [facility] [place] [address] [id number] [place] [id number] Oct, [facility] [place] [address] [id number] [place] [id number] Oct, [facility] [place] [address] [id number] [place] [id number] Oct, [facility] [address] [facility] [id number] [address] [place] [id number] September, [facility] [place] [address] [id number] [place] [id number] September, [facility] [address] [facility] [id number] [address] [place] [phone] Aug, [facility] [place] [address] [id number] [place] [id number] Aug, [facility] [place] [address] [id number] [place] [id number] Jun, [facility] [place] [address] [id number] [place] [id number] Jun, [facility] [address] [id number] [place] [id number] Feb, [facility] [address] [facility] [id number] [address] [place] [id number] Feb, [facility] [address] [id number] [place] [id number] Feb, [facility] [address] [id number] [place] [id number] Dec, [facility] [address] [facility] [id number] [address] [place] [phone] Dec, [facility] [address] [id number] [place] [id number] Dec, [facility] [address] [id number] [place] [id number] Aug, [facility] [place] [address] [id number] [place] [id number] May, [facility] [address] [id number] [place] [id number] May, [facility] [address] [facility] [id number] [address] [place] [id number] Apr, [facility] [address] [place] [id number] [address] [place] [phone] September, [facility] [address] [id number] [address] [place] [id number] Apr, [facility] [address] [facility] [id number] [address] [place] [id number] Apr, [facility] [address] [place] [id number] [address] [place] [phone] Apr, IMMUNIZATIONS No Known Immunizations SOCIAL HISTORY [...] excerbation/bronchiti s--in hospital about 45 days 2004 Hospitalization History fell and cracked her pelvis, low on iron [email or web address] blood 07/2019
--- OUTSIDE RECORDS SUMMARY | 2019-10-12 11:19 | XMS REPORT ---
Author Author Zoie DISLA Organization [address] Address [address] [place] [address] Care Team Providers Care Dental Technician Metal Name Role Phone ELLEN DISLA Unavailable PROBLEMS Type Condition ICD9-CM Code NGN96-GA Code Onset Dates Condition S tatus SNOMED Code Problem Type 2 diabetes mellitus wit h other specified complication, without long-term current use of insulin E11.69 Active 77725263 Problem Other chronic pain G89.29 Active 8 0307285 Problem Chronic airway obstruction, not elsewhere classified J44.9 Active 66444151 Problem CAD (coronary artery disease) I25.10 Active 86097421 Problem Other and unspecified hyperlipidemia E78.5 Active 63150403 ALLERGIES No Information ENCOUNTERS Encounter Location Date Diagnosis [address] [address] Dec, [id number] [address] September, Chronic airway obstruction, not elsewher e classified J44.9 ; CAD (coronary artery disease) I25.10 and Vitamin B 12 deficiency E53.8 [address] [address] September, [address] [address] September, [id number] [address] September, Anemia, unspecified type D64.9 ; Other a nd unspecified hyperlipidemia E78.5 and Type 2 diabetes mellitus with other specified complication, without long-term current use of insulin E11.69 [place] [id number] [place] [address] September, Other chronic pain G89.29 ; Chronic airw ay obstruction, not elsewhere classified J44.9 ; Other and unspecified hyperlipidemia E78.5 ; Type 2 diabetes mellitus with other specified complication, without long-term current use of insulin E11.69 ; Anemia, unspecified type D64.9 and Status post fracture of pelvis Z87.81 [facility] [address] [place] [address] [id number] [place] [address] Jul, [facility] [address] [place] [address] [id number] [place] [address] Jul, Hospital discharge follow-up Z09 ; Close d nondisplaced fracture of right ischium with routine healing, unspecified fracture morphology, subsequent encounter S32.601D and Peptic ulcer of stomach, unspecified chronicity K25.9 [facility] [address] [place] [address] [id number] [place] [address] Jul, [facility] [address] [place] [address] [id number] [facility] [place] [address] Jul, Type 2 diabetes mellitus with other spec ified complication, without long-term current use of insulin E11.69 [facility] [address] [place] [address] [id number] [place] [address] Jun, [facility] [place] [address] [id number] [place] [id number] Apr, Type 2 diabetes mellitus with other spec ified complication, without long-term current use of insulin E11.69 ; Chronic airway obstruction, not elsewhere classified J44.9 and Acute nasopharyngitis J00 [facility] [place] [address] [id number] [place] [id number] Mar, Acute nasopharyngitis J00 [facility] [place] [address] [id number] [place] [id number] Mar, [facility] [place] [address] [id number] [place] [id number] Mar, Acute nasopharyngitis J00 [facility] [place] [address] [id number] [place] [id number] Mar, Encounter for immunization Z23 [facility] [address] [facility] [id number] 100[address] [place] [address] Feb, Type 2 diabetes mellitus wit h other specified complication, without long-term current use of insulin E11.69 [facility] [id number] [place] [id number] Dec, Type 2 diabetes mellitus with other spec ified complication, without long-term current use of insulin E11.69 ; Chronic airway obstruction, not elsewhere classified J44.9 ; CAD (coronary artery disease) I25.10 and Deformity of toe of left foot M20.62 [facility] [id number] [place] [address], [place] [id number] Aug, Bilateral impacted cerumen H61.23 [address] [place] [id number] Aug, Bilateral impacted cerumen H61.23 ; CAD (coronary artery disease) I25.10 and Other and unspecified hyperlipidemia E78.5 [facility] [id number] [place] [id number] Jun, Encounter for Medicare annual wellness e xam Z00.00 ; Type 2 diabetes mellitus with other specified complication, without long-term current use of insulin E11.69 ; Chronic airway obstruction, not elsewhere classified J44.9 ; CAD (coronary artery disease) I25.10 ; Other and unspecified hyperlipidemia E78.5 and Breast cancer screening Z12.31 [facility] [id number] [place] [id number] Jun, DM w/o complication type II E11.9 ; Knockout Man 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, not elsewhere classified J44.9 ; CAD (coronary artery disease) I25.10 and Vertigo R42 [address] [id number] [place] [id number] Feb, Encounter for immunization Z23 [facility] [id number] [place] [id number] Jan, DM w/o complication type II E11.9 and Ch ronic airway obstruction, not elsewhere classified J44.9 [facility] [place] [address] [id number] [place] [id number] Dec, CAD (coronary artery disease) I25.10 [facility] [place] [address] [id number] [place] [id number] Oct, DM w/o complication type II E11.9 ; Knockout Man 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, not elsewhere classified J44.9 and CAD (coronary artery disease) I25.10 [facility] [place] [address] [id number] [place] [id number] Jul, DM w/o complication type II E11.9 ; Knockout Man 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, not elsewhere classified J44.9 and Infective urethritis N34.2 [facility] [place] [address] [id number] [place] [id number] Jun, Syncope and collapse R55 [facility] [place] [address] [id number] [place] [id number] Jun, [facility] [place] [address] [id number] [place] [id number] May, Bronchitis J40 [facility] [place] [address] [id number] [place] [id number] May, [facility] [place] [address] [id number] [place] [id number] May, [facility] [place] [address] [id number] [place] [id number] Apr, DM w/o complication type II E11.9 [facility] [place] [address] [id number] [place] [id number] Mar, DM w/o complication type II E11.9 ; Knockout Man 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, not elsewhere classified J44.9 ; Dysuria R30.0 ; Tinea pedis of right foot B35.3 and Encounter for immunization Z23 [facility] [place] [address] [id number] [place] [id number] 04 Feb, 2017 Medicare welcome exam Z00.00 [facility] [place] [address] [id number] [place] [id number] Jan, Chronic airway obstruction, not elsewher e classified J44.9 [facility] [address] [id number] [place] [id number] Dec, [facility] [place] [address] [id number] [place] [id number] Dec, DM w/o complication type II E11.9 ; Knockout Man 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, not elsewhere classified J44.9 and Acute cystitis with hematuria N30.01 [facility] [address] [id number] [place] [id number] Oct, Encounter for screening for malignant ne oplasm of colon Z12.11 [facility] [place] [address] [id number] [place] [id number] Oct, Medicare welcome exam Z00.00 [facility] [place] [address] [id number] [place] [id number] September, Medicare welcome exam Z00.00 and Encount er for immunization Z23 [facility] [address] [id number] [place] [id number] September, Bronchitis J40 [facility] [place] [address] [id number] [place] [id number] September, Bronchitis J40 [facility] [place] [address] [id number] [place] [id number] September, Other and unspecified hyperlipidemia E78 .5 [facility] [place] [address] [id number] [place] [id number] Aug, DM w/o complication type II E11.9 ; Knockout Man 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, not elsewhere classified J44.9 and Other and unspecified hyperlipidemia E78.5 [facility] [place] [address] [id number] [place] [id number] May, DM w/o complication type II E11.9 and Ch ronic airway obstruction, not elsewhere classified J44.9 [facility] [place] [address] [id number] [place] [id number] Apr, Acute cystitis with hematuria N30.01 [facility] [place] [address] [id number] [place] [id number] Feb, DM w/o complication type II E11.9 [facility] [place] [address] [id number] [place] [id number] Feb, Chronic airway obstruction, not elsewher e classified J44.9 ; DM w/o complication type II E11.9 and Encounter for immunization Z23 [facility] [place] [address] [id number] [place] [id number] Dec, [facility] [place] [address] [id number] [place] [id number] Nov, Chronic airway obstruction, not elsewher e classified J44.9 [facility] [place] [address] [id number] [place] [id number] Oct, DM w/o complication type II E11.9 [facility] [address] [id number] [address] [place] [address] Oct, [facility] [place] [address] [id number] [place] [id number] Aug, Chronic airway obstruction, not elsewher e classified J44.9 and DM w/o complication type II E11.9 [facility] [place] [address] [id number] [place] [id number] Aug, Chronic airway obstruction, not elsewher e classified J44.9 [facility] [place] [address] [id number] [place] [id number] Aug, DM w/o complication type II E11.9 and Ch ronic airway obstruction, not elsewhere classified J44.9 [facility] [place] [address] [id number] [place] [id number] Jul, [facility] [place] [address] [id number] [place] [id number] Jul, DM w/o complication type II E11.9 [facility] [place] [address] [id number] [place] [id number] Jun, [facility] [place] [address] [id number] [place] [id number] Jun, [facility] [place] [address] [id number] [place] [id number] 17 Jun, 2015 Chronic airway obstruction, not elsewher e classified J44.9 ; DM w/o complication type II E11.9 and Other and unspecified hyperlipidemia E78.5 [facility] [place] [id number] [place] [address], [place] [id number] 11 Jun, 2015 CAD (coronary artery disease) I25.10 and Dizziness R42 [facility] [place] [id number] [place] [address], [place] [id number] Jun, Bronchitis J40 [facility] [place] [id number] [place] [address], [place] [id number] May, Hematoma T14.8 [facility] [place] [id number] [place] [address], [place] [id number] May, [facility] [place] [id number] [place] [address], [place] [id number] May, Bronchitis J40 [facility] [place] [id number] [place] [address], [place] [id number] Apr, Bronchitis J40 [facility] [address] [facility] [id number] [address] [place] [address] Apr, [facility] [place] [id number] [place] [address], [place] [id number] Mar, [facility] [place] [id number] [place] [address] [id number] Mar, [facility] [place] [id number] [place] [address], [place] [id number] Mar, [facility] [place] [address] [facility] [id number] [place] [address] [id number] Mar, [facility] [place] [address] [id number] [place] [id number] Mar, SOB (shortness of breath) R06.02 [facility] [place] [id number] [place] [address], [place] [id number] Feb, Urinary tract infection, site not specif ied N39.0 and Hematuria, unspecified R31.9 [facility] [place] [id number] [place] [address], [place] [id number] Feb, DM w/o complication type II E11.9 ; Enco unter for immunization Z23 and Chronic airway obstruction, not elsewhere classified J44.9 Jeremiah GENEVA [address] [facility] [id number] [place] [id number] Jan, Jeremiah GENEVA [address] [facility] [id number] [facility] [place] [place] [id number] Jan, [facility] [place] [address] [place] [address] [id number] [place] [id number] Dec, [facility] [place] [address] [place] [address] [id number] [place] [id number] Dec, [facility] [place] [address] [place] [address] [id number] [place] [id number] Dec, [facility] [place] [address] [place] [address] [id number] [place] [id number] Dec, [facility] [place] [address] [place] [address] [id number] [place] [id number] Dec, Blood in the stool 578.1 [facility] [place] [address] [place] [address] [id number] [place] [id number] Nov, [facility] [place] [address] [place] [address] [id number] [place] [id number] Nov, Colon cancer screening V76.51 [facility] [place] [address] [place] [address] [id number] [place] [id number] Nov, Vertigo 780.4 [facility] [place] [address] [place] [address] [id number] [place] [id number] Nov, Routine gynecological examination V72.31 ; Pap test, as part of routine gynecological examination V76.2 ; Breast cancer screening V76.10 ; Postmenopausal V49.81 and Colon cancer screening V76.51 [facility] [place] [address] [place] [address] [id number] [place] [id number] Nov, [facility] [place] [address] [facility] [id number] [place] [id number] Nov, [facility] [address] [place] [address] [id number] [address] [place] [address] Nov, [facility] [place] [address] [place] [address] [id number] [place] [id number] Oct, Diabetes 250.00 ; COPD (chronic obstruct misha pulmonary disease) 496 and GERD (gastroesophageal reflux disease) 530.81 [facility] [address] [facility] [id number] [address] [place] [address] Oct, [facility] [place] [address] [id number] [place] [id number] Oct, [facility] [place] [address] [id number] [place] [id number] Oct, [facility] [place] [address] [id number] [place] [id number] Oct, Reflux 530.81 [facility] [address] [facility] [id number] [address] [place] [address] Oct, [facility] [address] [place] [address] [id number] [place] [id number] Oct, [facility] [place] [address] [place] [address] [id number] [place] [id number] Oct, [facility] [place] [address] [place] [address] [id number] [place] [id number] Oct, Dysuria 788.1 [facility] [place] [address] [place] [address] [id number] [place] [id number] Oct, Dysuria 788.1 [facility] [address] [facility] [id number] [address] [place] [address] September, [facility] [place] [address] [place] [address] [id number] [place] [id number] September, Diabetes 250.00 and COPD (chronic obstru ctive pulmonary disease) 496 [facility] [place] [address] [id number] [place] [id number] September, [facility] [place] [address] [id number] [place] [id number] September, [address] [id number] [id number] September, [facility] [place] [address] [id number] [place] [id number] Aug, Osteoarthritis 715.90 ; Diabetes 250.00 and COPD (chronic obstructive pulmonary disease) 496 [facility] [place] [address] [id number] [place] [id number] Aug, Pure hypercholesterolemia 272.0 ; Essent ial hypertension, benign 401.1 and Loss of weight 783.21 [facility] [address] [facility] [id number] [address] [place] [address], [place] [address] Aug, [facility] [address] [facility] [id number] [address] [place] [address], [place] [address] Aug, [facility] [place] [address] [facility] [id number] [place] [id number] Jul, [facility] [address] [facility] [id number] [address] [place] [address] Jul, [facility] [address] [facility] [id number] [address] [place] [address], [place] [address] Jun, [facility] [address] [facility] [id number] [address] [place] [address], [place] [address] Jun, [facility] [place] [address] [facility] [id number] [place] [id number] Jun, [facility] [address] [facility] [id number] [address] [place] [address], [place] [address] May, [facility] [place] [address] [place] [address] [id number] [place] [id number] May, [facility] [place] [address] [place] [address] [id number] [place] [id number] Apr, [facility] [address] [facility] [id number] [address] [place] [address], [place] [address] Apr, [facility] [place] [address] [facility] [id number] [place] [id number] Apr, [facility] [place] [address] [facility] [id number] [address] [place] [address], [place] [address] Apr, [facility] [place] [address] [id number] [place] [id number] Apr, [facility] [address] [id number] [address] [place] [address], [place] [address] Apr, [facility] [place] [address] [id number] [place] [id number] Feb, [facility] [address] [id number] [address] [place] [address], [place] [address] Feb, [facility] [place] [address] [id number] [place] [id number] Feb, [facility] [address] [id number] [address] [place] [address], [place] [address] Feb, [facility] [address] [id number] [address] [place] [address], [place] [address] Jan, [facility] [place] [address] [place] [address] [id number] [place] [id number] Jan, [facility] [address] [id number] [address] [place] [address], [place] [address] Jan, [facility] [place] [address] [place] [address] [id number] [place] [id number] Jan, [facility] [address] [id number] [address] [place] [address], [place] [address] Jan, [facility] [address] [id number] [address] [place] [address], [place] [address] Dec, [facility] [address] [id number] [address] [place] [address], [place] [address] Dec, [facility] [place] [address] [place] [address] [id number] [place] [id number] September, [facility] [address] [id number] [address] [place] [address], [place] [address] September, [facility] [address] [id number] [address] [place] [address], [place] [address] September, [facility] [place] [address] [id number] [place] [id number] September, [facility] [place] [address] [id number] [place] [id number] September, [facility] [address] [id number] [address] [place] [address], [place] [address] September, [facility] [place] [address] [id number] [place] [id number] Aug, [facility] [address] [id number] [address] [place] [address], [place] [address] Aug, [facility] [address] [id number] [address] [place] [address], [place] [address] Jul, [facility] [place] [address] [place] [address] [id number] [place] [id number] Jul, [facility] [address] [facility] [id number] [address] [place] [address], [place] [address] Jul, [facility] [place] [address] [place] [address] [id number] [place] [id number] Jun, [facility] [address] [id number] [address] [place] [address], [place] [address] Jun, [facility] [address] [facility] [id number] [address] [place] [address], [place] [address] Jun, [facility] [place] [address] [id number] [place] [id number] Jun, [facility] [place] [address] [place] [address] [id number] [place] [id number] May, [facility] [address] [id number] [address] [place] [address], [place] [address] May, [facility] [address] [id number] [address] [place] [address], [place] [address] Apr, [facility] [place] [address] [id number] [place] [id number] Mar, [facility] [address] [facility] [id number] [address] [place] [address], [place] [address] Mar, [facility] [address] [id number] [address] [place] [address] Mar, [facility] [address] [id number] [address] [place] [address] Mar, [facility] [place] [address] [id number] [place] [id number] Mar, [facility] [place] [address] [id number] [place] [id number] Feb, [facility] [address] [id number] [address] [place] [address] Feb, [facility] [place] [address] [id number] [place] [id number] Feb, [facility] [address] [facility] [id number] [address] [place] [address] Feb, [facility] [place] [address] [id number] [place] [id number] Feb, [facility] [address] [id number] [address] [place] [address] Feb, [facility] [place] [address] [id number] [place] [id number] Jan, [facility] [place] [address] [id number] [place] [id number] Dec, [facility] [place] [address] [id number] [place] [id number] Nov, [facility] [place] [address] [id number] [place] [id number] Oct, [facility] [place] [address] [id number] [place] [id number] Oct, [facility] [place] [address] [id number] [place] [id number] Oct, [facility] [place] [address] [id number] [place] [id number] Oct, [facility] [address] [id number] [address] [place] [id number] September, [facility] [place] [address] [id number] [place] [id number] September, [facility] [address] [facility] [id number] [address] [place] [phone] Aug, [facility] [place] [address] [id number] [place] [id number] Aug, [facility] [place] [address] [id number] [place] [id number] Jun, [facility] [place] [address] [id number] [place] [id number] Jun, [facility] [place] [address] [id number] [place] [id number] Feb, [facility] [address] [facility] [id number] [address] [place] [address], [place] [address] Feb, [facility] [place] [address] [id number] [place] [id number] Feb, [facility] [place] [address] [id number] [place] [id number] Dec, [facility] [address] [facility] [id number] [address] [place] [phone] Dec, [facility] [place] [address] [id number] [place] [id number] Dec, [facility] [place] [address] [id number] [place] [id number] Aug, [facility] [place] [address] [id number] [place] [id number] May, [facility] [place] [address] [id number] [place] [id number] May, [facility] [address] [facility] [id number] [address] [place] [id number] Apr, [facility] [address] [facility] [id number] [address] [place] [id number] September, [facility] [address] [facility] [id number] [address] [place] [phone] Apr, [facility] [address] [facility] [id number] [address] [address] Apr, [facility] [address] [facility] [id number] [address] [place] [id number] Apr, IMMUNIZATIONS No Known Immunizations SOCIAL HISTORY Never Assessed REASON FOR VISIT PLAN OF CARE VITAL SIGNS Height 66 in 2013-01-20 Weight 126 lbs 2013-01-20 Temperature 98.2 degrees Fahrenheit 2013-01-20 Heart Rate 84 bpm 2013-01-20 Respiratory Rate 16 2013-01-20 Blood pressure systolic 106 mmHg 2013-01-20 Blood pressure diastolic 74 mmHg 2013-01-20 MEDICATIONS Unknown Medications RESULTS No Results PROCEDURES [...]
--- OUTSIDE RECORDS SUMMARY | 2019-10-12 11:19 | XMS REPORT ---
Author Author Zoie DISLA Organization [address] Address [address] [place] [address] Care Team Providers Care Manager Of Digital Name Role Phone ELLEN DISLA Unavailable PROBLEMS Type Condition ICD9-CM Code DYU87-AA Code Onset Dates Condition S tatus SNOMED Code Problem Type 2 diabetes mellitus wit h other specified complication, without long-term current use of insulin E11.69 Active 09561710 Problem Other chronic pain G89.29 Active 8 1536803 Problem Chronic airway obstruction, not elsewhere classified J44.9 Active 27430562 Problem CAD (coronary artery disease) I25.10 Active 78444528 Problem Other and unspecified hyperlipidemia E78.5 Active 28548545 ALLERGIES No Information ENCOUNTERS Encounter Location Date Diagnosis [address] [address] September, [id number] [address] September, [place] [id number] [address] September, [address] [address] September, Anemia, unspecified type D64.9 ; Other a nd unspecified hyperlipidemia E78.5 and Type 2 diabetes mellitus with other specified complication, without long-term current use of insulin E11.69 [place] [id number] [address] September, Other chronic pain G89.29 ; Chronic airw ay obstruction, not elsewhere classified J44.9 ; Other and unspecified hyperlipidemia E78.5 ; Type 2 diabetes mellitus with other specified complication, without long-term current use of insulin E11.69 ; Anemia, unspecified type D64.9 and Status post fracture of pelvis Z87.[address] [facility] [address] [id number] [place] [address] 30 Jul, [address] [facility] [address] [id number] [place] [address] Jul, Hospital discharge follow-up Z09 ; Close d nondisplaced fracture of right ischium with routine healing, unspecified fracture morphology, subsequent encounter S32.601D and Peptic ulcer of stomach, unspecified chronicity K25.[address] [facility] [address] [id number] [place] [address] Jul, [place] [address] [id number] [place] [address] Jul, Type 2 diabetes mellitus with other spec ified complication, without long-term current use of insulin E11.[address] [id number] [place] [address] 14 Jun, 2019 [facility] [address] [id number] [place] [id number] Apr, Type 2 diabetes mellitus with other spec ified complication, without long-term current use of insulin E11.69 ; Chronic airway obstruction, not elsewhere classified J44.9 and Acute nasopharyngitis J00 [facility] [address] [id number] [place] [id number] Mar, Acute nasopharyngitis J00 [facility] [address] [id number] [place] [id number] Mar, [facility] [address] [id number] [place] [id number] Mar, Acute nasopharyngitis J00 [facility] [address] [id number] [place] [id number] Mar, Encounter for immunization Z23 [facility] [address] [id number] [address] [address] Feb, Type 2 diabetes mellitus wit h other specified complication, without long-term current use of insulin E11.69 [facility] [id number] [place] [id number] Dec, Type 2 diabetes mellitus with other spec ified complication, without long-term current use of insulin E11.69 ; Chronic airway obstruction, not elsewhere classified J44.9 ; CAD (coronary artery disease) I25.10 and Deformity of toe of left foot M20.62 [facility] [id number] [place] [address], [place] [id number] Aug, Bilateral impacted cerumen H61.23 [address] [id number] [place] [address], [place] [id number] Aug, Bilateral impacted cerumen H61.23 ; CAD (coronary artery disease) I25.10 and Other and unspecified hyperlipidemia E78.5 [address] [place] [id number] [place] [address], [place] [id number] Jun, Encounter for Medicare annual wellness e xam Z00.00 ; Type 2 diabetes mellitus with other specified complication, without long-term current use of insulin E11.69 ; Chronic airway obstruction, not elsewhere classified J44.9 ; CAD (coronary artery disease) I25.10 ; Other and unspecified hyperlipidemia E78.5 and Breast cancer screening Z12.31 [place] [id number] [place] [address], [place] [id number] 11 Jun, 2018 DM w/o complication type II E11.9 ; 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 and CAD (coronary artery disease) I25.10 [facility] [place] [address] [id number] [place] [id number] Jul, DM w/o complication type II E11.9 ; 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, not elsewhere 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 J44.9 and Infective urethritis N34.2 [facility] [place] [address] [id number] [place] [id number] Jun, Syncope and collapse R55 [facility] [place] [address] [id number] [place] [id number] Jun, [facility] [place] [address] [id number] [place] [id number] May, Bronchitis J40 [facility] [place] [address] [id number] [place] [id number] May, [facility] [place] [address] [id number] [place] [id number] May, [facility] [place] [address] [id number] [place] [id number] Apr, DM w/o complication type II E11.9 [facility] [place] [address] [id number] [place] [id number] Mar, DM w/o complication type II E11.9 ; 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, not elsewhere 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 J44.9 ; Dysuria R30.0 ; Tinea pedis of right foot B35.3 and Encounter for immunization Z23 [facility] [place] [address] [id number] [place] [id number] Feb, Medicare welcome exam Z00.00 [facility] [place] [address] [id number] [place] [id number] Jan, Chronic airway obstruction, not elsewher e classified J44.9 [facility] [place] [address] [id number] [place] [id number] Dec, [facility] [place] [address] [id number] [place] [id number] Dec, DM w/o complication type II E11.9 ; 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, not 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 J44.9 and Acute cystitis with hematuria N30.01 [facility] [place] [address] [id number] [place] [id number] Oct, Encounter for screening for malignant ne oplasm of colon Z12.11 [facility] [place] [address] [id number] [place] [id number] Oct, Medicare welcome exam Z00.00 [facility] [place] [address] [id number] [place] [id number] September, Medicare welcome exam Z00.00 and Encount er for immunization Z23 [facility] [place] [address] [id number] [place] [id number] September, Bronchitis J40 [facility] [place] [address] [id number] [place] [id number] September, Bronchitis J40 [facility] [place] [address] [id number] [place] [id number] September, Other and unspecified hyperlipidemia E78 .5 [facility] [place] [address] [id number] [place] [id number] Aug, DM w/o complication type II E11.9 ; 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, not 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.9 and Other and unspecified hyperlipidemia E78.5 [facility] [place] [address] [id number] [place] [id number] May, DM w/o complication type II E11.9 and Ch ronic airway obstruction, not elsewhere classified J44.9 [facility] [place] [address] [id number] [place] [id number] Apr, Acute cystitis with hematuria N30.01 [facility] [place] [address] [id number] [place] [id number] Feb, DM w/o complication type II E11.9 [facility] [place] [address] [id number] [place] [id number] Feb, Chronic airway obstruction, not elsewher e classified J44.9 ; DM w/o complication type II E11.9 and Encounter for immunization Z23 [facility] [place] [address] [id number] [place] [id number] Dec, [facility] [place] [address] [id number] [place] [id number] Nov, Chronic airway obstruction, not elsewher e classified J44.9 [facility] [place] [address] [id number] [place] [id number] Oct, DM w/o complication type II E11.9 [facility] [address] [facility] [id number] [address] [address] Oct, [facility] [place] [address] [id number] [place] [id number] Aug, Chronic airway obstruction, not elsewher e classified J44.9 and DM w/o complication type II E11.9 [facility] [place] [address] [id number] [place] [id number] Aug, Chronic airway obstruction, not elsewher e classified J44.9 [facility] [place] [address] [id number] [place] [id number] Aug, DM w/o complication type II E11.9 and Ch ronic airway obstruction, not elsewhere classified J44.9 [facility] [place] [address] [id number] [place] [id number] Jul, [facility] [place] [address] [id number] [place] [id number] Jul, DM w/o complication type II E11.9 [facility] [place] [address] [id number] [place] [id number] Jun, [facility] [place] [address] [id number] [place] [id number] Jun, [facility] [place] [address] [id number] [place] [id number] Jun, Chronic airway obstruction, not elsewher e classified J44.9 ; DM w/o complication type II E11.9 and Other and unspecified hyperlipidemia E78.5 [facility] [place] [address] [id number] [place] [id number] Jun, CAD (coronary artery disease) I25.10 and Dizziness R42 [facility] [place] [address] [facility] [id number] [place] [id number] 10 Jun, 2015 Bronchitis J40 [facility] [place] [address] [facility] [id number] [place] [id number] May, Hematoma T14.8 [facility] [place] [address] [facility] [id number] [place] [id number] May, [facility] [place] [address] [facility] [id number] [place] [id number] May, Bronchitis J40 [facility] [place] [address] [facility] [id number] [place] [id number] Apr, Bronchitis J40 [facility] [address] [facility] [id number] [place], [place] [address] Apr, [facility] [place] [address] [facility] [id number] [place] [id number] Mar, [facility] [id number] [place] [address] [id number] Mar, [facility] [place] [address] [facility] [id number] [place] [id number] Mar, [facility] [address] [id number] [id number] Mar, [facility] [place] [address] [place] [address] [id number] [place] [id number] Mar, SOB (shortness of breath) R06.02 [facility] [place] [address] [id number] [place] [id number] Feb, Urinary tract infection, site not specif ied N39.0 and Hematuria, unspecified R31.9 [facility] [place] [address] [facility] [id number] [place] [id number] Feb, DM w/o complication type II E11.9 ; Enco unter for immunization Z23 and Chronic airway obstruction, not elsewhere classified J44.9 [facility] [place] [id number] [place] [id number] Jan, Jeremiah [place] [address] [facility] [id number] JOCELIN [place] [id number] Jan, [facility] [address] [id number] [place] [id number] Dec, [facility] [place] [address] [id number] [place] [id number] Dec, [facility] [place] [address] [id number] [place] [id number] Dec, [facility] [place] [address] [id number] [place] [id number] Dec, [facility] [address] [id number] [place] [id number] Dec, Blood in the stool 578.1 [facility] [address] [facility] [id number] [place] [id number] Nov, [facility] [address] [facility] [id number] [place] [id number] Nov, Colon cancer screening V76.51 [facility] [address] [facility] [id number] [place] [id number] Nov, Vertigo 780.4 [facility] [address] [facility] [id number] [place] [id number] Nov, Routine gynecological examination V72.31 ; Pap test, as part of routine gynecological examination V76.2 ; Breast cancer screening V76.10 ; Postmenopausal V49.81 and Colon cancer screening V76.51 [facility] [address] [id number] [place] [id number] Nov, [facility] [address] [facility] [id number] [place] [id number] Nov, [facility] [address] [place] [address] Nov, [facility] [address] [facility] [id number] [place] [id number] Oct, Diabetes 250.00 ; COPD (chronic obstruct misha pulmonary disease) 496 and GERD (gastroesophageal reflux disease) 530.81 [facility] [address] [facility] [id number] [address] [place] [address] Oct, [facility] [place] [address] [id number] [place] [id number] Oct, [facility] [place] [address] [id number] [place] [id number] Oct, [facility] [place] [address] [id number] [place] [id number] Oct, Reflux 530.81 [facility] [address] [facility] [id number] [address] [place] [address] Oct, [facility] [place] [address] [id number] [place] [id number] Oct, [facility] [place] [address] [id number] [place] [id number] Oct, [facility] [place] [address] [id number] [place] [id number] Oct, Dysuria 788.1 [facility] [place] [address] [facility] [id number] [place] [id number] Oct, Dysuria 788.1 [facility] [address] [facility] [id number] [address] [place] [address] September, [facility] [place] [address] [id number] [place] [id number] September, Diabetes 250.00 and COPD (chronic obstru ctive pulmonary disease) 496 [facility] [place] [address] [id number] [place] [id number] September, [facility] [place] [address] [id number] [place] [id number] September, [facility] [place] [address] [facility] [id number] [address] September, [facility] [place] [address] [id number] [place] [id number] Aug, Osteoarthritis 715.90 ; Diabetes 250.00 and COPD (chronic obstructive pulmonary disease) 496 [facility] [place] [address] [id number] [place] [id number] Aug, Pure hypercholesterolemia 272.0 ; Essent ial hypertension, benign 401.1 and Loss of weight 783.21 [facility] [place] [facility] [address] [facility] [id number] [address] [place] [address], [place] [address] 14 Aug, 2014 [facility] [address] [facility] [id number] [address] [place] [address], [place] [address] Aug, [facility] [place] [address] [facility] [id number] [place] [id number] Jul, [facility] [address] [facility] [id number] [address] [place] [address], [place] [address] Jul, [facility] [place] [facility] [address] [facility] [id number] [address] [place] [address], [place] [address] Jun, [facility] [place] [facility] [address] [facility] [id number] [address] [place] [address], [place] [address] Jun, [facility] [place] [address] [facility] [id number] [place] [id number] Jun, [facility] [place] [facility] [address] [facility] [id number] [address] [place] [address], [place] [address] May, [facility] [place] [address] [facility] [id number] [place] [id number] May, [facility] [place] [address] [facility] [id number] [place] [id number] Apr, [facility] [place] [facility] [address] [facility] [id number] [address] [place] [address], [place] [address] Apr, [facility] [place] [address] [facility] [id number] [place] [id number] Apr, [facility] [address] [facility] [id number] [address] [place] [address], [place] [address] Apr, [facility] [place] [address] [facility] [id number] [place] [id number] Apr, [facility] [place] [facility] [address] [facility] [id number] [address] [place] [address] Apr, [facility] [place] [address] [id number] [place] [id number] Feb, [facility] [address] [id number] [address] [place] [address], [place] [address] Feb, [facility] [place] [address] [id number] [place] [id number] Feb, [facility] [address] [id number] [address] [place] [address], [place] [address] Feb, [facility] [address] [id number] [address] [place] [address], [place] [address] Jan, [facility] [place] [address] [id number] [place] [id number] Jan, [facility] [address] [id number] [address] [place] [address], [place] [address] Jan, [facility] [place] [address] [id number] [place] [id number] Jan, [facility] [address] [id number] [address] [place] [address] Jan, [facility] [address] [id number] [address] [place] [address] Dec, [facility] [address] [id number] [address] [place] [address] Dec, [facility] [place] [address] [id number] [place] [id number] September, [facility] [address] [id number] [address] [place] [address], [place] [address] September, [facility] [address] [id number] [address] [place] [address], [place] [address] September, [facility] [place] [address] [id number] [place] [id number] September, [facility] [place] [address] [id number] [place] [id number] September, [facility] [address] [id number] [address] [place] [address], [place] [address] September, [facility] [place] [address] [id number] [place] [id number] Aug, [facility] [address] [id number] [address] [place] [address], [place] [address] Aug, [facility] [address] [id number] [address] [place] [address], [place] [address] Jul, [facility] [place] [address] [id number] [place] [id number] Jul, [facility] [address] [id number] [address] [place] [address], [place] [address] Jul, [facility] [place] [address] [id number] [place] [id number] Jun, [facility] [address] [id number] [address] [place] [address], [place] [address] Jun, [facility] [address] [id number] [address] [place] [address], [place] [address] Jun, [facility] [place] [address] [id number] [place] [id number] Jun, [facility] [place] [address] [id number] [place] [id number] May, [facility] [address] [id number] [address] [place] [address], [place] [address] May, [facility] [address] [id number] [address] [place] [address], [place] [address] Apr, [facility] [place] [address] [id number] [place] [id number] Mar, [facility] [address] [id number] [address] [place] [address], [place] [address] Mar, [facility] [address] [facility] [id number] [address] [place] [address], [place] [address] Mar, [facility] [address] [id number] [address] [place] [address], [place] [address] Mar, [facility] [place] [address] [id number] [place] [id number] Mar, [facility] [place] [address] [id number] [place] [id number] Feb, [facility] [address] [id number] [address] [place] [address] Feb, [facility] [place] [address] [id number] [place] [id number] Feb, [facility] [address] [id number] [address] [place] [address] Feb, [facility] [place] [address] [id number] [place] [id number] Feb, [facility] [place] [facility] [address] [facility] [id number] [address] [place] [address], [place] [address] Feb, [facility] [place] [address] [id number] [place] [id number] Jan, [facility] [place] [address] [id number] [place] [id number] Dec, [facility] [place] [address] [id number] [place] [id number] Nov, [facility] [place] [address] [id number] [place] [id number] Oct, [facility] [place] [address] [id number] [place] [id number] Oct, [facility] [place] [address] [id number] [place] [id number] Oct, [facility] [place] [address] [id number] [place] [id number] Oct, [facility] [address] [facility] [id number] [address] [place] [address], [place] [address] September, [facility] [place] [address] [id number] [place] [id number] September, [facility] [place] [place] [facility] [address] [facility] [id number] [address] [place] [address] Aug, [facility] [place] [address] [id number] [place] [id number] Aug, [facility] [place] [address] [id number] [place] [id number] Jun, [facility] [place] [address] [id number] [place] [id number] Jun, [facility] [address] [id number] [place] [id number] Feb, [facility] [address] [id number] [address] [place] [id number] Feb, [facility] [address] [id number] [place] [id number] Feb, [facility] [address] [id number] [place] [id number] Dec, [facility] [address] [facility] [id number] [address] [place] [id number] Dec, [facility] [address] [id number] [place] [id number] Dec, [facility] [address] [id number] [place] [id number] Aug, [facility] [address] [id number] [place] [id number] May, [facility] [address] [id number] [place] [id number] May, [facility] [address] [facility] [id number] [address] [place] [id number] Apr, [facility] [address] [facility] [id number] [address] [place] [id number] September, [facility] [address] [facility] [id number] [address] [place] [id number] Apr, [facility] [address] [facility] [id number] [address] [place] [id number] Apr, [facility] [address] [facility] [id number] [address] [place] [id number] Apr, IMMUNIZATIONS No Known Immunizations SOCIAL HISTORY Never Assessed REASON FOR VISIT PLAN OF CARE VITAL SIGNS Height 66 in 2013-03-01 Weight 133.4 lbs 2013-03-01 Temperature 97.8 degrees Fahrenheit 2013-03-01 Heart Rate 88 bpm 2013-03-01 Respiratory Rate 16 2013-03-01 Blood pressure systolic 138 mmHg 2013-03-01 Blood pressure diastolic 68 mmHg 2013-03-01 MEDICATIONS Unknown Medications RESULTS No Results PROCEDURES [...]
--- OUTSIDE RECORDS SUMMARY | 2019-10-12 11:20 | XMS REPORT ---
Author Author Zoie DISLA Organization [address] Address [address] [place] [address] Care Team Providers Care Public Policy Professor Name Role Phone ELLEN DISLA Unavailable PROBLEMS Type Condition ICD9-CM Code NJZ66-ZV Code Onset Dates Condition S tatus SNOMED Code Problem Other and unspecified hyperlipidemia E78.5 Active 78178570 Problem Type 2 diabetes mellitus wit h other specified complication, without long-term current use of insulin E11.69 Active 56527394 Problem Chronic airway obstruction, not elsewhere classified J44.9 Active 10588152 Problem CAD (coronary artery disease) I25.10 Active 72654788 ALLERGIES No Information ENCOUNTERS Encounter Location Date Diagnosis [place] [address] [facility] [id number], [place] [address] 30 Jul, [address] [facility] [id number], [place] [address] Jul, Hospital discharge follow-up Z09 ; Close d nondisplaced fracture of right ischium with routine healing, unspecified fracture morphology, subsequent encounter S32.601D and Peptic ulcer of stomach, unspecified chronicity K25.9 [place] [address] [facility] [id number] [place] [address] Jul, [address] [facility] [address] [id number], [place] [address] Jul, Type 2 diabetes mellitus with other spec ified complication, without long-term current use of insulin E11.[address] [facility] [id number] [place] [address] 14 Jun, 2019 [facility] [address] [facility] [id number] [place] [id number] Apr, Type 2 diabetes mellitus with other spec ified complication, without long-term current use of insulin E11.69 ; Chronic airway obstruction, not elsewhere classified J44.9 and Acute nasopharyngitis J00 [facility] [address] [facility] [id number] [place] [id number] 20 Mar, 2019 Acute nasopharyngitis J00 [facility] [address] [facility] [id number] [place] [id number] 14 Mar, 2019 [facility] [address] [facility] [id number] [place] [id number] 13 Mar, 2019 Acute nasopharyngitis J00 [facility] [address] [facility] [id number] [place] [id number] 06 Mar, 2019 Encounter for immunization Z23 [facility] [address] [facility]NOTE 3] [id number] [address] [place] [address] Feb, Type 2 diabetes mellitus wit h other specified complication, without long-term current use of insulin E11.69 [address] [id number] Dec, Type 2 diabetes mellitus with other spec ified complication, without long-term current use of insulin E11.69 ; Chronic airway obstruction, not elsewhere classified J44.9 ; CAD (coronary artery disease) I25.10 and Deformity of toe of left foot M20.62 [facility] [id number] [place] [id number] Aug, Bilateral impacted cerumen H61.23 [address] [id number] Aug, Bilateral impacted cerumen H61.23 ; CAD (coronary artery disease) I25.10 and Other and unspecified hyperlipidemia E78.5 [facility] [address] [facility] [id number] [place] [id number] Jun, Encounter for Medicare annual wellness e xam Z00.00 ; Type 2 diabetes mellitus with other specified complication, without long-term current use of insulin E11.69 ; Chronic airway obstruction, not elsewhere classified J44.9 ; CAD (coronary artery disease) I25.10 ; Other and unspecified hyperlipidemia E78.5 and Breast cancer screening Z12.31 [facility] [address] [id number] [place] [id number] 11 Jun, 2018 DM w/o complication type II E11.9 ; 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, not elsewhere classified J44.9 ; CAD (coronary artery disease) I25.10 and Vertigo R42 [facility] [place] [address] [id number] [place] [id number] Feb, Encounter for immunization Z23 [facility] [place] [address] [id number] [place] [id number] Jan, DM w/o complication type II E11.9 and Ch ronic airway obstruction, not elsewhere classified J44.9 [facility] [place] [address] [id number] [place] [id number] Dec, CAD (coronary artery disease) I25.10 [facility] [place] [address] [id number] [place] [id number] Oct, DM w/o complication type II E11.9 ; 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, not elsewhere classified J44.9 and CAD (coronary artery disease) I25.10 [facility] [place] [address] [id number] [place] [id number] Jul, DM w/o complication type II E11.9 ; 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, not elsewhere classified J44.9 and Infective urethritis N34.2 [facility] [place] [address] [id number] [place] [id number] Jun, Syncope and collapse R55 [facility] [place] [address] [id number] [place] [id number] Jun, [facility] [place] [address] [id number] [place] [id number] May, Bronchitis J40 [facility] [place] [address] [id number] [place] [id number] May, [facility] [place] [address] [id number] [place] [id number] May, [facility] [place] [address] [id number] [place] [id number] Apr, DM w/o complication type II E11.9 [facility] [place] [address] [id number] [place] [id number] Mar, DM w/o complication type II E11.9 ; 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, not elsewhere classified J44.9 ; Dysuria R30.0 ; Tinea pedis of right foot B35.3 and Encounter for immunization Z23 [facility] [place] [address] [id number] [place] [id number] Feb, Medicare welcome exam Z00.00 [facility] [place] [address] [id number] [place] [id number] Jan, Chronic airway obstruction, not elsewher e classified J44.9 [facility] [place] [address] [id number] [place] [id number] Dec, [facility] [place] [address] [id number] [place] [id number] Dec, DM w/o complication type II E11.9 ; 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, not elsewhere classified J44.9 and Acute cystitis with hematuria N30.01 [facility] [place] [address] [id number] [place] [id number] Oct, Encounter for screening for malignant ne oplasm of colon Z12.11 [facility] [place] [address] [id number] [place] [id number] Oct, Medicare welcome exam Z00.00 [facility] [place] [address] [id number] [place] [id number] September, Medicare welcome exam Z00.00 and Encount er for immunization Z23 [facility] [place] [address] [id number] [place] [id number] September, Bronchitis J40 [facility] [place] [address] [id number] [place] [id number] September, Bronchitis J40 [facility] [place] [address] [id number] [place] [id number] September, Other and unspecified hyperlipidemia E78 .5 [facility] [place] [address] [id number] [place] [id number] Aug, DM w/o complication type II E11.9 ; 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, not elsewhere classified J44.9 and Other and unspecified hyperlipidemia E78.5 [facility] [place] [address] [id number] [place] [id number] May, DM w/o complication type II E11.9 and Ch ronic airway obstruction, not elsewhere classified J44.9 [facility] [place] [address] [id number] [place] [id number] Apr, Acute cystitis with hematuria N30.01 [facility] [place] [address] [id number] [place] [id number] Feb, DM w/o complication type II E11.9 [facility] [place] [address] [id number] [place] [id number] Feb, Chronic airway obstruction, not elsewher e classified J44.9 ; DM w/o complication type II E11.9 and Encounter for immunization Z23 [facility] [place] [address] [id number] [place] [id number] Dec, [facility] [place] [address] [id number] [place] [id number] Nov, Chronic airway obstruction, not elsewher e classified J44.9 [facility] [place] [address] [facility] [id number] [place] [id number] Oct, DM w/o complication type II E11.9 [facility] [address] [facility]NOTE 3] [id number] [address] [place] [address] Oct, [facility] [place] [address] [id number] [place] [id number] Aug, Chronic airway obstruction, not elsewher e classified J44.9 and DM w/o complication type II E11.9 [facility] [place] [address] [id number] [place] [id number] Aug, Chronic airway obstruction, not elsewher e classified J44.9 [facility] [place] [address] [id number] [place] [id number] Aug, DM w/o complication type II E11.9 and Ch ronic airway obstruction, not elsewhere classified J44.9 [facility] [place] [address] [id number] [place] [id number] Jul, [facility] [place] [address] [id number] [place] [id number] Jul, DM w/o complication type II E11.9 [facility] [place] [address] [id number] [place] [id number] Jun, [facility] [place] [address] [id number] [place] [id number] Jun, [facility] [place] [address] [id number] [place] [id number] Jun, Chronic airway obstruction, not elsewher e classified J44.9 ; DM w/o complication type II E11.9 and Other and unspecified hyperlipidemia E78.5 [facility] [place] [address] [id number] [place] [id number] Jun, CAD (coronary artery disease) I25.10 and Dizziness R42 [facility] [place] [address] [id number] [place] [id number] Jun, Bronchitis J40 [facility] [place] [address] [id number] [place] [id number] May, Hematoma T14.8 [facility] [place] [address] [id number] [place] [id number] May, [facility] [place] [address] [id number] [place] [id number] May, Bronchitis J40 [facility] [place] [address] [id number] [place] [id number] Apr, Bronchitis J40 [facility] [address] [facility]NOTE 3] [id number] [address] [place] [address] Apr, [facility] [place] [address] [id number] [place] [id number] Mar, [facility] [address] [address] [id number] [id number] Mar, [facility] [place] [address] [id number] [place] [id number] Mar, [facility] [facility] [address] [id number] [id number] Mar, [facility] [place] [address] [facility] [id number] [place] [id number] Mar, SOB (shortness of breath) R06.02 [facility] [place] [address] [id number] [place] [id number] Feb, Urinary tract infection, site not specif ied N39.0 and Hematuria, unspecified R31.9 [facility] [place] [address] [id number] [place] [id number] Feb, DM w/o complication type II E11.9 ; Enco unter for immunization Z23 and Chronic airway obstruction, not elsewhere classified J44.9 [place] [address] [facility] [id number][place] [id number] Jan, [place] [id number], [place] [id number] Jan, [facility] [place] [address] [facility] [id number] [place] [id number] Dec, [facility] [place] [address] [id number] [place] [id number] Dec, [facility] [place] [address] [id number] [place] [id number] Dec, [facility] [place] [address] [facility] [id number] [place] [id number] Dec, [facility] [place] [address] [id number] [place] [id number] Dec, Blood in the stool 578.1 [facility] [place] [address] [id number] [place] [id number] Nov, [facility] [place] [address] [id number] [place] [id number] Nov, Colon cancer screening V76.51 [facility] [place] [address] [id number] [place] [id number] Nov, Vertigo 780.4 [facility] [place] [address] [id number] [place] [id number] Nov, Routine gynecological examination V72.31 ; Pap test, as part of routine gynecological examination V76.2 ; Breast cancer screening V76.10 ; Postmenopausal V49.81 and Colon cancer screening V76.51 [facility] [address] [id number] [place] [id number] Nov, [facility] [address] [id number] [place] [id number] Nov, [facility] [address] [facility]NOTE 3] [id number] [address] [place] [address] Nov, [facility] [address] [facility] [id number] [place] [id number] Oct, Diabetes 250.00 ; COPD (chronic obstruct misha pulmonary disease) 496 and GERD (gastroesophageal reflux disease) 530.81 [facility] [address] [place] [id number] [address] [place] [address] Oct, [facility] [address] [id number] [place] [id number] Oct, [facility] [place] [address] [id number] [place] [id number] Oct, [facility] [place] [address] [id number] [place] [id number] Oct, Reflux 530.81 [facility] [address] [place] [id number] [address] [place] [address] Oct, [facility] [place] [address] [id number] [place] [id number] Oct, [facility] [place] [address] [id number] [place] [id number] Oct, [facility] [place] [address] [id number] [place] [id number] Oct, Dysuria 788.1 [facility] [address] [id number] [place] [id number] Oct, Dysuria 788.1 [facility] [address] [place] [id number] [address] [place] [address] September, [facility] [place] [address] [id number] [place] [id number] September, Diabetes 250.00 and COPD (chronic obstru ctive pulmonary disease) 496 [facility] [place] [address] [id number] [place] [id number] September, [facility] [place] [address] [id number] [place] [id number] September, [facility] [address] [id number] [place] [id number] September, [facility] [place] [address] [id number] [place] [id number] Aug, Osteoarthritis 715.90 ; Diabetes 250.00 and COPD (chronic obstructive pulmonary disease) 496 [facility] [place] [address] [facility] [id number] [place] [id number] Aug, Pure hypercholesterolemia 272.0 ; Essent ial hypertension, benign 401.1 and Loss of weight 783.21 [facility] [address] [facility]NOTE 3] [id number] [address] [place] [address] Aug, [facility] [address] [facility]NOTE 3] [id number] [address] [place] [address] Aug, [facility] [place] [address] [facility] [id number] [place] [id number] Jul, [facility] [address] [facility]NOTE 3] [id number] [address] [place] [address] Jul, [facility] [address] [facility]NOTE 3] [id number] [address] [place] [address] Jun, [facility] [address] [facility][NOTE 3] [id number] [address] [place] [address] Jun, [facility] [place] [address] [facility] [id number] [place] [id number] Jun, [facility] [address] [facility]NOTE 3] [id number] [address] [place] [address] May, [facility] [place] [address] [id number] [place] [id number] May, [facility] [place] [address] [id number] [place] [id number] Apr, [facility] [address] [id number] [address] [place] [address], [place] [address] Apr, [facility] [place] [address] [id number] [place] [id number] Apr, [facility] [address] [id number] [address] [place] [address], [place] [address] Apr, [facility] [place] [address] [id number] [place] [id number] Apr, [facility] [address] [facility] 3] [id number] [address] [place] [address], [place] [address] Apr, [facility] [place] [address] [id number] [place] [id number] Feb, [facility] [address] [id number] [address] [place] [address], [place] [address] Feb, [facility] [place] [address] [id number] [place] [id number] Feb, [facility] [address] [facility]NOTE 3] [id number] [address] [place] [address] Feb, [facility] [address] [id number] [address] [place] [address], [place] [address] Jan, [facility] [place] [address] [id number] [place] [id number] Jan, [facility] [address] [id number] [address] [place] [address], [place] [address] Jan, [facility] [place] [address] [id number] [place] [id number] Jan, [facility] [address] [facility] 3] [id number] [address] [place] [address], [place] [address] Jan, [facility] [address] [facility]NOTE 3] [id number] [address] [place] [address], [place] [address] Dec, [facility] [address] [id number] [address] [place] [address], [place] [address] Dec, [facility] [place] [address] [id number] [place] [id number] September, [facility] [address] [id number] [address] [place] [address], [place] [address] September, [facility] [address] [id number] [address] [place] [address], [place] [address] September, [facility] [place] [address] [id number] [place] [id number] September, [facility] [place] [address] [id number] [place] [id number] September, [facility] [address] [id number] [address] [place] [address], [place] [address] September, [facility] [place] [address] [id number] [place] [id number] Aug, [facility] [address] [id number] [address] [place] [address], [place] [address] Aug, [facility] [address] [id number] [address] [place] [address], [place] [address] Jul, [facility] [place] [address] [id number] [place] [id number] Jul, [facility] [address] [id number] [address] [place] [address], [place] [address] Jul, [facility] [place] [address] [id number] [place] [id number] Jun, [facility] [address] [id number] [address] [place] [address], [place] [address] Jun, [facility] [address] [id number] [address] [place] [address], [place] [address] Jun, [facility] [place] [address] [id number] [place] [id number] Jun, [facility] [place] [address] [id number] [place] [id number] May, [facility] [address] [facility] 3] [id number] [address] [place] [address], [place] [address] May, [facility] [address] [facility]NOTE 3] [id number] [address] [place] [address], [place] [address] Apr, [facility] [place] [address] [id number] [place] [id number] Mar, [facility] [address] [id number] [address] [place] [address], [place] [address] Mar, [facility] [address] [facility]NOTE 3] [id number] [address] [place] [address], [place] [address] Mar, [facility] [address] [facility]NOTE 3] [id number] [address] [place] [address], [place] [address] Mar, [facility] [place] [address] [id number] [place] [id number] Mar, [facility] [place] [address] [id number] [place] [id number] Feb, [facility] [address] [facility] 3] [id number] [address] [place] [address], [place] [address] Feb, [facility] [place] [address] [id number] [place] [id number] Feb, [facility] [address] [id number] [address] [place] [address], [place] [address] Feb, [facility] [place] [address] [id number] [place] [id number] Feb, [facility] [address] [id number] [address] [place] [address], [place] [address] Feb, [facility] [place] [address] [id number] [place] [id number] Jan, [facility] [place] [address] [id number] [place] [id number] Dec, [facility] [place] [address] [id number] [place] [id number] Nov, [facility] [place] [address] [id number] [place] [id number] Oct, [facility] [place] [address] [id number] [place] [id number] Oct, [facility] [address] [id number] [place] [id number] Oct, [facility] [address] [id number] [place] [id number] Oct, [facility] [address] [id number] [address] [place] [address], [place] [address] September, [facility] [address] [id number] [place] [id number] September, [facility] [address] [facility]NOTE 3] [id number] [address] [place] [address], [place] [address] Aug, [facility] [address] [id number] [place] [id number] Aug, [facility] [address] [id number] [place] [id number] Jun, [facility] [address] [id number] [place] [id number] Jun, [facility] [address] [id number] [place] [id number] Feb, [facility] [address] [facility]NOTE 3] [id number] [address] [place] [address], [place] [address] Feb, [facility] [address] [id number] [place] [id number] Feb, [facility] [address] [id number] [place] [id number] Dec, [facility] [address] [facility]NOTE 3] [id number] [address] [place] [address], [place] [address] Dec, [facility] [address] [id number] [place] [id number] Dec, [facility] [address] [id number] [place] [id number] Aug, [facility] [address] [facility] [id number] [place] SMITH S [id number] May, [facility] [address] [facility] [id number] [place] SMITH S [id number] May, [facility] [address] [facility]NOTE 3] [id number] [address] [place] [id number] Apr, [facility] [address] [facility][NOTE 3] [id number] [address] [place] [id number] September, [facility] [address] [facility]NOTE 3] [id number] [address] [place] [phone] Apr, [facility] [address] [facility][NOTE 3] [id number] [address] [place] [id number] Apr, [facility] [address] [facility]NOTE 3] [id number] [address] [place], [place] [address] Apr, IMMUNIZATIONS No Known Immunizations SOCIAL HISTORY Never Assessed REASON FOR VISIT PLAN OF CARE VITAL SIGNS Height 66 in 2014-06-09 Weight 169 lbs 2014-06-09 Temperature 97.5 degrees Fahrenheit 2014-06-09 Heart Rate 68 bpm 2014-06-09 Respiratory Rate 16 2014-06-09 Blood pressure systolic 112 mmHg 2014-06-09 Blood pressure diastolic 70 mmHg 2014-06-09 MEDICATIONS Unknown Medications RESULTS No Results PROCEDURES Procedure Date Ordered Result Body Site LIPID PANEL Jun 09, 2014 COMPREHEN METABOLIC PANEL Jun 09, 2014 VENIPUNCT, ROUTINE* Jun 09, 2014 INSTRUCTIONS MEDICATIONS ADMINISTERED No Known Medications [...]
--- OUTSIDE RECORDS SUMMARY | 2019-10-12 11:20 | XMS REPORT ---
Author Author Zoie DISLA Organization [address] Address [address] [place] [address] Care Team Providers Care Medical Claims Manager Name Role Phone ELLEN DISLA Unavailable PROBLEMS Type Condition ICD9-CM Code ARA95-RT Code Onset Dates Condition S tatus SNOMED Code Problem Other and unspecified hyperlipidemia E78.5 Active 82783779 Problem Type 2 diabetes mellitus wit h other specified complication, without long-term current use of insulin E11.69 Active 63017962 Problem Chronic airway obstruction, not elsewhere classified J44.9 Active 88635257 Problem CAD (coronary artery disease) I25.10 Active [id number] ALLERGIES No Information ENCOUNTERS Encounter Location Date Diagnosis [place] [address] [address] [facility] [id number], [place] [address] Jul, [address] [facility] [id number], [place] [address] Jul, Hospital discharge follow-up Z09 ; Close d nondisplaced fracture of right ischium with routine healing, unspecified fracture morphology, subsequent encounter S32.601D and Peptic ulcer of stomach, unspecified chronicity K25.9 [place] [address] [facility] [id number] [place] [address] Jul, [address] [facility] [address] [id number] [place] [address] Jul, Type 2 diabetes mellitus with other spec ified complication, without long-term current use of insulin E11.[address] [facility] [id number] [place] [address] 14 Jun, 2019 [facility] [address] [facility] [id number] [place] [id number] Apr, Type 2 diabetes mellitus with other spec ified complication, without long-term current use of insulin E11.69 ; Chronic airway obstruction, not elsewhere classified J44.9 and Acute nasopharyngitis J00 [facility] [address] [facility] [id number] [place] [id number] 20 Mar, 2019 Acute nasopharyngitis J00 [facility] [address] [facility] [id number] [place] [id number] 14 Mar, 2019 [facility] [address] [facility] [id number] [place] [id number] 13 Mar, 2019 Acute nasopharyngitis J00 [facility] [address] [facility] [id number] [place] [id number] 06 Mar, 2019 Encounter for immunization Z23 [facility] [address] [facility] [id number] [address] [place] [address] Feb, Type 2 diabetes mellitus wit h other specified complication, without long-term current use of insulin E11.69 [address] [id number] Dec, Type 2 diabetes mellitus with other spec ified complication, without long-term current use of insulin E11.69 ; Chronic airway obstruction, not elsewhere classified J44.9 ; CAD (coronary artery disease) I25.10 and Deformity of toe of left foot M20.62 [facility] [id number] [place] [id number] Aug, Bilateral impacted cerumen H61.23 [address] [id number] Aug, Bilateral impacted cerumen H61.23 ; CAD (coronary artery disease) I25.10 and Other and unspecified hyperlipidemia E78.5 [facility] [address] [facility] [id number] [place] [id number] Jun, Encounter for Medicare annual wellness e xam Z00.00 ; Type 2 diabetes mellitus with other specified complication, without long-term current use of insulin E11.69 ; Chronic airway obstruction, not elsewhere classified J44.9 ; CAD (coronary artery disease) I25.10 ; Other and unspecified hyperlipidemia E78.5 and Breast cancer screening Z12.31 [facility] [address] [id number] [place] [id number] 11 Jun, 2018 DM w/o complication type II E11.9 ; Supervisor Production 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, not elsewhere classified J44.9 ; CAD (coronary artery disease) I25.10 and Vertigo R42 [facility] [place] [address] [id number] [place] [id number] Feb, Encounter for immunization Z23 [facility] [place] [address] [id number] [place] [id number] Jan, DM w/o complication type II E11.9 and Ch ronic airway obstruction, not elsewhere classified J44.9 [facility] [place] [address] [id number] [place] [id number] Dec, CAD (coronary artery disease) I25.10 [facility] [place] [address] [id number] [place] [id number] Oct, DM w/o complication type II E11.9 ; Supervisor Production 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, not elsewhere classified J44.9 and CAD (coronary artery disease) I25.10 [facility] [place] [address] [id number] [place] [id number] Jul, DM w/o complication type II E11.9 ; Supervisor Production 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, not elsewhere classified J44.9 and Infective urethritis N34.2 [facility] [place] [address] [id number] [place] [id number] Jun, Syncope and collapse R55 [facility] [place] [address] [id number] [place] [id number] Jun, [facility] [place] [address] [id number] [place] [id number] May, Bronchitis J40 [facility] [place] [address] [id number] [place] [id number] May, [facility] [place] [address] [id number] [place] [id number] May, [facility] [place] [address] [id number] [place] [id number] Apr, DM w/o complication type II E11.9 [facility] [place] [address] [id number] [place] [id number] Mar, DM w/o complication type II E11.9 ; Supervisor Production 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, not elsewhere classified J44.9 ; Dysuria R30.0 ; Tinea pedis of right foot B35.3 and Encounter for immunization Z23 [facility] [place] [address] [id number] [place] [id number] Feb, Medicare welcome exam Z00.00 [facility] [place] [address] [id number] [place] [id number] Jan, Chronic airway obstruction, not elsewher e classified J44.9 [facility] [place] [address] [id number] [place] [id number] Dec, [facility] [place] [address] [id number] [place] [id number] Dec, DM w/o complication type II E11.9 ; Supervisor Production 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, not elsewhere classified J44.9 and Acute cystitis with hematuria N30.01 [facility] [place] [address] [id number] [place] [id number] Oct, Encounter for screening for malignant ne oplasm of colon Z12.11 [facility] [place] [address] [id number] [place] [id number] Oct, Medicare welcome exam Z00.00 [facility] [place] [address] [id number] [place] [id number] September, Medicare welcome exam Z00.00 and Encount er for immunization Z23 [facility] [place] [address] [id number] [place] [id number] September, Bronchitis J40 [facility] [place] [address] [id number] [place] [id number] September, Bronchitis J40 [facility] [place] [address] [id number] [place] [id number] September, Other and unspecified hyperlipidemia E78 .5 [facility] [place] [address] [id number] [place] [id number] Aug, DM w/o complication type II E11.9 ; Supervisor Production 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, not elsewhere classified J44.9 and Other and unspecified hyperlipidemia E78.5 [facility] [place] [address] [id number] [place] [id number] May, DM w/o complication type II E11.9 and Ch ronic airway obstruction, not elsewhere classified J44.9 [facility] [place] [address] [id number] [place] [id number] Apr, Acute cystitis with hematuria N30.01 [facility] [place] [address] [id number] [place] [id number] Feb, DM w/o complication type II E11.9 [facility] [place] [address] [id number] [place] [id number] Feb, Chronic airway obstruction, not elsewher e classified J44.9 ; DM w/o complication type II E11.9 and Encounter for immunization Z23 [facility] [place] [address] [id number] [place] [id number] Dec, [facility] [place] [address] [id number] [place] [id number] Nov, Chronic airway obstruction, not elsewher e classified J44.9 [facility] [place] [address] [facility] [id number] [place] [id number] Oct, DM w/o complication type II E11.9 [facility] [address] [facility] [id number] 100[address] [place] [address] Oct, [facility] [place] [address] [id number] [place] [id number] Aug, Chronic airway obstruction, not elsewher e classified J44.9 and DM w/o complication type II E11.9 [facility] [place] [address] [id number] [place] [id number] Aug, Chronic airway obstruction, not elsewher e classified J44.9 [facility] [place] [address] [id number] [place] [id number] Aug, DM w/o complication type II E11.9 and Ch ronic airway obstruction, not elsewhere classified J44.9 [facility] [place] [address] [id number] [place] [id number] Jul, [facility] [place] [address] [id number] [place] [id number] Jul, DM w/o complication type II E11.9 [facility] [place] [address] [id number] [place] [id number] Jun, [facility] [place] [address] [id number] [place] [id number] Jun, [facility] [place] [address] [id number] [place] [id number] Jun, Chronic airway obstruction, not elsewher e classified J44.9 ; DM w/o complication type II E11.9 and Other and unspecified hyperlipidemia E78.5 [facility] [place] [address] [id number] [place] [id number] Jun, CAD (coronary artery disease) I25.10 and Dizziness R42 [facility] [place] [address] [id number] [place] [id number] Jun, Bronchitis J40 [facility] [place] [address] [id number] [place] [id number] May, Hematoma T14.8 [facility] [place] [address] [id number] [place] [id number] May, [facility] [place] [address] [id number] [place] [id number] May, Bronchitis J40 [facility] [place] [address] [id number] [place] [id number] Apr, Bronchitis J40 [facility] [address] [facility] [id number] [address] [place] [address] Apr, [facility] [place] [address] [id number] [place] [id number] Mar, [facility] [address] [address] [id number] [id number] Mar, [facility] [place] [address] [id number] [place] [id number] Mar, [facility] [address] [id number][place] [id number] Mar, [facility] [place] [address] [facility] [id number] [place] [id number] Mar, SOB (shortness of breath) R06.02 [facility] [place] [address] [id number] [place] [id number] Feb, Urinary tract infection, site not specif ied N39.0 and Hematuria, unspecified R31.9 [facility] [place] [address] [id number] [place] [id number] Feb, DM w/o complication type II E11.9 ; Enco unter for immunization Z23 and Chronic airway obstruction, not elsewhere classified J44.9 [facility] [address] [facility] [id number][place] [id number] Jan, [facility] [id number], [place] [id number] Jan, [facility] [place] [address] [facility] [id number] [place] [id number] Dec, [facility] [place] [address] [id number] [place] [id number] Dec, [facility] [place] [address] [id number] [place] [id number] Dec, [facility] [place] [address] [facility] [id number] [place] [id number] Dec, [facility] [place] [address] [id number] [place] [id number] Dec, Blood in the stool 578.1 [facility] [place] [address] [id number] [place] [id number] Nov, [facility] [place] [address] [id number] [place] [id number] Nov, Colon cancer screening V76.51 [facility] [place] [address] [id number] [place] [id number] Nov, Vertigo 780.4 [facility] [place] [address] [id number] [place] [id number] Nov, Routine gynecological examination V72.31 ; Pap test, as part of routine gynecological examination V76.2 ; Breast cancer screening V76.10 ; Postmenopausal V49.81 and Colon cancer screening V76.51 [facility] [address] [id number] [place] [id number] Nov, [facility] [address] [id number] [place] [id number] Nov, [facility] [address] [facility] [id number] [address] [place] [address] Nov, [facility] [address] [facility] [id number] [place] [id number] Oct, Diabetes 250.00 ; COPD (chronic obstruct misha pulmonary disease) 496 and GERD (gastroesophageal reflux disease) 530.81 [facility] [address] [place] [id number] [address] [place] [address] Oct, [facility] [address] [id number] [place] [id number] Oct, [facility] [place] [address] [id number] [place] [id number] Oct, [facility] [place] [address] [id number] [place] [id number] Oct, Reflux 530.81 [facility] [address] [place] [id number] [address] [place] [address] Oct, [facility] [place] [address] [id number] [place] [id number] Oct, [facility] [place] [address] [id number] [place] [id number] Oct, [facility] [place] [address] [id number] [place] [id number] Oct, Dysuria 788.1 [facility] [address] [id number] [place] [id number] Oct, Dysuria 788.1 [facility] [address] [place] [id number] [address] [place] [address] September, [facility] [place] [address] [id number] [place] [id number] September, Diabetes 250.00 and COPD (chronic obstru ctive pulmonary disease) 496 [facility] [place] [address] [id number] [place] [id number] September, [facility] [place] [address] [id number] [place] [id number] September, [facility] [address] [address] [id number] [place] [id number] September, [facility] [place] [address] [id number] [place] [id number] Aug, Osteoarthritis 715.90 ; Diabetes 250.00 and COPD (chronic obstructive pulmonary disease) 496 [facility] [place] [address] [facility] [id number] [place] [id number] Aug, Pure hypercholesterolemia 272.0 ; Essent ial hypertension, benign 401.1 and Loss of weight 783.21 [facility] [address] [facility] [id number] [address] [place] [address] Aug, [facility] [address] [facility] [id number] [address] [place] [address] Aug, [facility] [place] [address] [facility] [id number] [place] [id number] Jul, [facility] [address] [facility] [id number] [address] [place] [address] Jul, [facility] [address] [facility] [id number] [address] [place] [address] Jun, [facility] [address] [facility] [id number] [address] [place] [address] Jun, [facility] [place] [address] [facility] [id number] [place] [id number] Jun, [facility] [address] [facility] [id number] [address] [place] [address] May, [facility] [place] [address] [id number] [place] [id number] May, [facility] [place] [address] [id number] [place] [id number] Apr, [facility] [address] [id number] [address] [place] [address], [place] [address] Apr, [facility] [place] [address] [id number] [place] [id number] Apr, [facility] [address] [id number] [address] [place] [address], [place] [address] Apr, [facility] [place] [address] [id number] [place] [id number] Apr, [facility] [address] [facility] [id number] [address] [place] [address], [place] [address] Apr, [facility] [place] [address] [id number] [place] [id number] Feb, [facility] [address] [id number] [address] [place] [address], [place] [address] Feb, [facility] [place] [address] [id number] [place] [id number] Feb, [facility] [address] [facility] [id number] [address] [place] [address] Feb, [facility] [address] [id number] [address] [place] [address], [place] [address] Jan, [facility] [place] [address] [id number] [place] [id number] Jan, [facility] [address] [id number] [address] [place] [address], [place] [address] Jan, [facility] [place] [address] [id number] [place] [id number] Jan, [facility] [address] [facility] [id number] [address] [place] [address], [place] [address] Jan, [facility] [address] [facility] [id number] [address] [place] [address], [place] [address] Dec, [facility] [address] [id number] [address] [place] [address], [place] [address] Dec, [facility] [place] [address] [id number] [place] [id number] September, [facility] [address] [id number] [address] [place] [address], [place] [address] September, [facility] [address] [id number] [address] [place] [address], [place] [address] September, [facility] [place] [address] [id number] [place] [id number] September, [facility] [place] [address] [id number] [place] [id number] September, [facility] [address] [id number] [address] [place] [address], [place] [address] September, [facility] [place] [address] [id number] [place] [id number] Aug, [facility] [address] [id number] [address] [place] [address], [place] [address] Aug, [facility] [address] [id number] [address] [place] [address], [place] [address] Jul, [facility] [place] [address] [id number] [place] [id number] Jul, [facility] [address] [id number] [address] [place] [address], [place] [address] Jul, [facility] [place] [address] [id number] [place] [id number] Jun, [facility] [address] [id number] [address] [place] [address], [place] [address] Jun, [facility] [address] [id number] [address] [place] [address], [place] [address] Jun, [facility] [place] [address] [id number] [place] [id number] Jun, [facility] [place] [address] [id number] [place] [id number] May, [facility] [address] [facility] [id number] [address] [place] [address], [place] [address] May, [facility] [address] [facility] [id number] [address] [place] [address], [place] [address] Apr, [facility] [place] [address] [id number] [place] [id number] Mar, [facility] [address] [id number] [address] [place] [address], [place] [address] Mar, [facility] [address] [facility] [id number] [address] [place] [address], [place] [address] Mar, [facility] [address] [facility] [id number] [address] [place] [address], [place] [address] Mar, [facility] [place] [address] [id number] [place] [id number] Mar, [facility] [place] [address] [id number] [place] [id number] Feb, [facility] [address] [facility] [id number] [address] [place] [address], [place] [address] Feb, [facility] [place] [address] [id number] [place] [id number] Feb, [facility] [address] [id number] [address] [place] [address], [place] [address] Feb, [facility] [place] [address] [id number] [place] [id number] Feb, [facility] [address] [id number] [address] [place] [address], [place] [address] Feb, [facility] [place] [address] [id number] [place] [id number] Jan, [facility] [place] [address] [id number] [place] [id number] Dec, [facility] [place] [address] [id number] [place] [id number] Nov, [facility] [place] [address] [id number] [place] [id number] Oct, [facility] [place] [address] [id number] [place] [id number] Oct, [facility] [place] [address] [id number] [place] [id number] Oct, [facility] [place] [address] [id number] [place] [id number] Oct, [facility] [address] [id number] [address] [place] [address], [place] [address] September, [facility] [place] [address] [id number] [place] [id number] September, [facility] [address] [facility] [id number] [address] [place] [address], [place] [address] Aug, [facility] [place] [address] [id number] [place] [id number] Aug, [facility] [place] [address] [id number] [place] [id number] Jun, [facility] [place] [address] [id number] [place] [id number] Jun, [facility] [place] [address] [id number] [place] [id number] Feb, [facility] [address] [facility] [id number] [address] [place] [address], [place] [address] Feb, [facility] [place] [address] [id number] [place] [id number] Feb, [facility] [place] [address] [id number] [place] [id number] Dec, [facility] [address] [facility] [id number] [address] [place] [address], [place] [id number] Dec, [facility] [address] [id number] [place] [id number] Dec, [facility] [address] [id number] [place], [place] [id number] Aug, [facility] [address] [facility] [id number] SARAH, [place] S [id number] May, [facility] [address] [facility] [id number] SARAH, S [id number] May, [facility] [address] [facility] [id number] [address] [place] [id number] Apr, [facility] [address] [facility] [id number] [address] [place] [phone] September, [facility] [address] [facility] [id number] [address] [place] [id number] Apr, [facility] [address] [facility] [id number] [address] [place] [id number] Apr, [facility] [address] [facility] [id number] [address] [place] [id number] Apr, IMMUNIZATIONS No Known Immunizations SOCIAL HISTORY [...]
--- OUTSIDE RECORDS SUMMARY | 2019-10-12 11:20 | XMS REPORT ---
Author Author Zoie DISLA Organization [address] Address [address] [place] [address] Care Team Providers Care Tectonophysicist Name Role Phone ELLEN DISLA Unavailable PROBLEMS Type Condition ICD9-CM Code [id number] Code Onset Dates Condition S tatus SNOMED Code Problem Type 2 diabetes mellitus wit h other specified complication, without long-term current use of insulin E11.69 Active 32661237 Problem Other chronic pain G89.29 Active 8 7299075 Problem Chronic airway obstruction, not elsewhere classified J44.9 Active 61330276 Problem CAD (coronary artery disease) I25.10 Active 83217857 Problem Other and unspecified hyperlipidemia E78.5 Active 34730697 ALLERGIES No Information ENCOUNTERS Encounter Location Date Diagnosis [id number] [address] September, [id number], [place] [address] September, Other chronic pain G89.29 ; Chronic airw ay obstruction, not elsewhere classified J44.9 ; Other and unspecified hyperlipidemia E78.5 ; Type 2 diabetes mellitus with other specified complication, without long-term current use of insulin E11.69 ; Anemia, unspecified type D64.9 and Status post fracture of pelvis Z87.81 [id number] [address] Jul, [id number] [address] Jul, Hospital discharge follow-up Z09 ; Close d nondisplaced fracture of right ischium with routine healing, unspecified fracture morphology, subsequent encounter S32.601D and Peptic ulcer of stomach, unspecified chronicity K25.9 [id number] [address] Jul, [facility] [address] [place] [address] [id number] [place] [address] Jul, Type 2 diabetes mellitus with other spec ified complication, without long-term current use of insulin E11.69 [facility] [address] [place] [address] [id number] [place] [address] Jun, [facility] [place] [address] [id number] [place] [id number] Apr, Type 2 diabetes mellitus with other spec ified complication, without long-term current use of insulin E11.69 ; Chronic airway obstruction, not elsewhere classified J44.9 and Acute [facility]oph[facility]itis J00 [facility] [place] [address] [id number] [place] [id number] Mar, Acute nasopharyngitis J00 [facility] [place] [address] [id number] [place] [id number] Mar, [facility] [place] [address] [id number] [place] [id number] Mar, Acute [facility]opharyngitis J00 [facility] [place] [address] [id number] [place] [id number] Mar, Encounter for immunization Z23 [facility] [address] [place] [address] Feb, Type 2 diabetes mellitus wit h other specified complication, without long-term current use of insulin E11.69 [facility] [place] [address] [id number] [place] [id number] Dec, Type 2 diabetes mellitus with other spec ified complication, without long-term current use of insulin E11.69 ; Chronic airway obstruction, not elsewhere classified J44.9 ; CAD (coronary artery disease) I25.10 and Deformity of toe of left foot M20.62 [facility] [place] [address] [id number] [place] [id number] Aug, Bilateral impacted cerumen H61.23 [facility] [place] [address] [facility] [id number] [place] [id number] Aug, Bilateral impacted cerumen H61.23 ; CAD (coronary artery disease) I25.10 and Other and unspecified hyperlipidemia E78.5 [facility] [address] [facility] [id number] [place] [id number] 19 Jun, 2018 Encounter for Medicare annual wellness e xam Z00.00 ; Type 2 diabetes mellitus with other specified complication, without long-term current use of insulin E11.69 ; Chronic airway obstruction, not elsewhere classified J44.9 ; CAD (coronary artery disease) I25.10 ; Other and unspecified hyperlipidemia E78.5 and Breast cancer screening Z12.31 [facility] [address] [facility] [id number] [place] [id number] 11 Jun, 2018 DM w/o complication type II E11.9 ; 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 airway obstruction, not elsewhere classified J44.9 ; CAD (coronary artery disease) I25.10 and Vertigo R42 [facility] [id number] [place] [address], [place] [id number] Feb, Encounter for immunization Z23 [facility] [address] [facility] [id number] [place] [id number] Jan, DM w/o complication type II E11.9 and Ch ronic airway obstruction, not elsewhere classified J44.9 [facility] [address] [id number] [place] [id number] Dec, CAD (coronary artery disease) I25.10 [facility] [address] [id number] [place] [id number] Oct, DM w/o complication type II E11.9 ; Nuclear Unit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, not elsewhere classified J44.9 and CAD (coronary artery disease) I25.10 [facility] [address] [facility] [id number] [place] [id number] Jul, DM w/o complication type II E11.9 ; Nuclear Unit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, not elsewhere classified J44.9 and Infective urethritis N34.2 [facility] [address] [facility] [id number] [place] [id number] 05 Jun, 2017 Syncope and collapse R55 [facility] [place] [address] [id number] [place] [id number] Jun, [facility] [place] [address] [id number] [place] [id number] May, Bronchitis J40 [facility] [place] [address] [id number] [place] [id number] May, [facility] [place] [address] [id number] [place] [id number] May, [facility] [place] [address] [id number] [place] [id number] Apr, DM w/o complication type II E11.9 [facility] [place] [address] [id number] [place] [id number] Mar, DM w/o complication type II E11.9 ; Nuclear Unit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, not elsewhere classified J44.9 ; Dysuria R30.0 ; Tinea pedis of right foot B35.3 and Encounter for immunization Z23 [facility] [place] [address] [id number] [place] [id number] Feb, Medicare welcome exam Z00.00 [facility] [place] [address] [id number] [place] [id number] Jan, Chronic airway obstruction, not elsewher e classified J44.9 [facility] [place] [address] [id number] [place] [id number] Dec, [facility] [place] [address] [id number] [place] [id number] Dec, DM w/o complication type II E11.9 ; Nuclear Unit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, not elsewhere classified J44.9 and Acute cystitis with hematuria N30.01 [facility] [place] [address] [id number] [place] [id number] Oct, Encounter for screening for malignant ne oplasm of colon Z12.11 [facility] [place] [address] [id number] [place] [id number] Oct, Medicare welcome exam Z00.00 [facility] [place] [address] [id number] [place] [id number] September, Medicare welcome exam Z00.00 and Encount er for immunization Z23 [facility] [place] [address] [id number] [place] [id number] September, Bronchitis J40 [facility] [place] [address] [id number] [place] [id number] September, Bronchitis J40 [facility] [place] [address] [id number] [place] [id number] September, Other and unspecified hyperlipidemia E78 .5 [facility] [place] [address] [id number] [place] [id number] Aug, DM w/o complication type II E11.9 ; Nuclear Unit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, not elsewhere classified J44.9 and Other and unspecified hyperlipidemia E78.5 [facility] [place] [address] [id number] [place] [id number] May, DM w/o complication type II E11.9 and Ch ronic airway obstruction, not elsewhere classified J44.9 [facility] [place] [address] [id number] [place] [id number] Apr, Acute cystitis with hematuria N30.01 [facility] [place] [address] [id number] [place] [id number] Feb, DM w/o complication type II E11.9 [facility] [place] [address] [id number] [place] [id number] Feb, Chronic airway obstruction, not elsewher e classified J44.9 ; DM w/o complication type II E11.9 and Encounter for immunization Z23 [facility] [place] [address] [id number] [place] [id number] Dec, [facility] [place] [address] [id number] [place] [id number] Nov, Chronic airway obstruction, not elsewher e classified J44.9 [facility] [place] [address] [id number] [place] [id number] Oct, DM w/o complication type II E11.9 [facility] [address] [facility] [id number] [address] [place] [address] Oct, [facility] [place] [address] [id number] [place] [id number] Aug, Chronic airway obstruction, not elsewher e classified J44.9 and DM w/o complication type II E11.9 [facility] [place] [address] [id number] [place] [id number] Aug, Chronic airway obstruction, not elsewher e classified J44.9 [facility] [place] [address] [id number] [place] [id number] Aug, DM w/o complication type II E11.9 and Ch ronic airway obstruction, not elsewhere classified J44.9 [facility] [place] [address] [id number] [place] [id number] Jul, [facility] [place] [address] [id number] [place] [id number] Jul, DM w/o complication type II E11.9 [facility] [place] [address] [id number] [place] [id number] Jun, [facility] [place] [address] [id number] [place] [id number] Jun, [facility] [place] [address] [id number] [place] [id number] Jun, Chronic airway obstruction, not elsewher e classified J44.9 ; DM w/o complication type II E11.9 and Other and unspecified hyperlipidemia E78.5 [facility] [place] [address] [id number] [place] [id number] Jun, CAD (coronary artery disease) I25.10 and Dizziness R42 [facility] [place] [address] [id number] [place] [id number] Jun, Bronchitis J40 [facility] [place] [address] [id number] [place] [id number] May, Hematoma T14.8 [facility] [place] [address] [id number] [place] [id number] May, [facility] [place] [address] [id number] [place] [id number] May, Bronchitis J40 [facility] [place] [address] [facility] [id number] [place] [id number] Apr, Bronchitis J40 [facility] [address] [facility] [id number] 100[place] [address] Apr, [facility] [place] [address] [id number] [place] [id number] Mar, [facility] [address] [id number] [place] [place] [phone] Mar, [facility] [place] [address] [facility] [id number] [place] [id number] Mar, [facility] [id number][address] [facility] [place] [id number] Mar, [facility] [place] [address] [facility] [id number] [place] [id number] Mar, SOB (shortness of breath) R06.02 [facility] [place] [address] [facility] [id number] [place] [id number] Feb, Urinary tract infection, site not specif ied N39.0 and Hematuria, unspecified R31.9 [facility] [place] [address] [facility] [id number] [place] [id number] Feb, DM w/o complication type II E11.9 ; Enco unter for immunization Z23 and Chronic airway obstruction, not elsewhere classified J44.9 [facility] [address] [id number] [id number] Jan, [facility] [id number] [place] [id number] Jan, [facility] [place] [address] [facility] [id number] [place] [id number] Dec, [facility] [place] [address] [facility] [id number] [place] [id number] Dec, [facility] [place] [address] [facility] [id number] [place] [id number] Dec, [facility] [place] [address] [facility] [id number] [place] [id number] Dec, [facility] [place] [address] [id number] [place] [id number] Dec, Blood in the stool 578.1 [facility] [place] [address] [id number] [place] [id number] Nov, [facility] [place] [address] [id number] [place] [id number] Nov, Colon cancer screening V76.51 [facility] [place] [address] [id number] [place] [id number] Nov, Vertigo 780.4 [facility] [place] [address] [id number] [place] [id number] Nov, Routine gynecological examination V72.31 ; Pap test, as part of routine gynecological examination V76.2 ; Breast cancer screening V76.10 ; Postmenopausal V49.81 and Colon cancer screening V76.51 [facility] [place] [address] [id number] [place] [id number] Nov, [facility] [place] [address] [id number] [place] [id number] Nov, [facility] [id number] [address] [place] [address] Nov, [facility] [place] [address] [id number] [place] [id number] Oct, Diabetes 250.00 ; COPD (chronic obstruct misha pulmonary disease) 496 and GERD (gastroesophageal reflux disease) 530.81 [facility] [address] [facility] [id number] [address] [place] [address] Oct, [facility] [place] [address] [id number] [place] [id number] Oct, [facility] [place] [address] [id number] [place] [id number] Oct, [facility] [place] [address] [id number] [place] [id number] Oct, Reflux 530.81 [facility] [address] [place] [id number] [place] [address] Oct, [facility] [place] [address] [facility] [id number] [place] [id number] Oct, [facility] [place] [address] [facility] [id number] [place] [id number] Oct, [facility] [place] [address] [facility] [id number] [place] [id number] Oct, Dysuria 788.1 [facility] [place] [address] [facility] [id number] [place] [id number] Oct, Dysuria 788.1 [facility] [address] [place] [id number] [address] [place] [address] September, [facility] [place] [address] [facility] [id number] [place] [id number] September, Diabetes 250.00 and COPD (chronic obstru ctive pulmonary disease) 496 [facility] [place] [address] [facility] [id number] [place] [id number] September, [facility] [place] [address] [facility] [id number] [place] [id number] September, [facility] [address] [id number] [id number] September, [facility] [place] [address] [id number] [place] [id number] Aug, Osteoarthritis 715.90 ; Diabetes 250.00 and COPD (chronic obstructive pulmonary disease) 496 [facility] [place] [address] [id number] [place] [id number] Aug, Pure hypercholesterolemia 272.0 ; Essent ial hypertension, benign 401.1 and Loss of weight 783.21 [facility] [address] [facility] [id number] [address] [place] [address] Aug, [facility] [address] [place] [id number] [address] [place] [address] Aug, [facility] [address] [id number] [place] [id number] Jul, [facility] [address] [id number] [address] [place] [address], [place] [address] Jul, [facility] [address] [id number] [address] [place] [address], [place] [address] Jun, [facility] [place] [facility] [address] [id number] [address] [place] [address], [place] [address] Jun, [facility] [place] [address] [id number] [place] [id number] Jun, [facility] [place] [facility] [address] [id number] [address] [place] [address], [place] [address] May, [facility] [place] [address] [id number] [place] [id number] May, [facility] [place] [address] [id number] [place] [id number] Apr, [facility] [address] [id number] [address] [place] [address], [place] [address] Apr, [facility] [place] [address] [id number] [place] [id number] Apr, [facility] [address] [id number] [address] [place] [address], [place] [address] Apr, [facility] [place] [address] [id number] [place] [id number] Apr, [facility] [place] [facility] [address] [id number] [address] [place] [address], [place] [address] Apr, [facility] [place] [address] [id number] [place] [id number] Feb, [facility] [place] [facility] [address] [id number] [address] [place] [address], [place] [address] Feb, [facility] [place] [address] [id number] [place] [id number] Feb, [facility] [place] [facility] [address] [id number] [address] [place] [address] Feb, [facility] [address] [id number] [address] [place] [address], [place] [address] Jan, [facility] [place] [address] [id number] [place] [id number] Jan, [facility] [address] [id number] [facility] [place] [address] Jan, [facility] [place] [address] [id number] [place] [id number] Jan, [facility] [address] [id number] [address] [place] [address], [place] [address] Jan, [facility] [address] [id number] [address] [place] [address], [place] [address] Dec, [facility] [address] [id number] [address] [place] [address], [place] [address] Dec, [facility] [place] [address] [id number] [place] [id number] September, [facility] [address] [id number] [address] [place] [address], [place] [address] September, [facility] [address] [id number] [address] [place] [address], [place] [address] September, [facility] [place] [address] [id number] [place] [id number] September, [facility] [place] [address] [id number] [place] [id number] September, [facility] [address] [id number] [address] [place] [address], [place] [address] September, [facility] [place] [address] [id number] [place] [id number] Aug, [facility] [address] [id number] [address] [place] [address], [place] [address] Aug, [facility] [address] [id number] [facility] [place] [address] Jul, [facility] [place] [address] [id number] [place] [id number] Jul, [facility] [address] [id number] [address] [place] [address] Jul, [facility] [place] [address] [id number] [place] [id number] Jun, [facility] [address] [id number] [address] [place] [address] Jun, [facility] [address] [id number] [address] [place] [address], [place] [address] Jun, [facility] [place] [address] [id number] [place] [id number] Jun, [facility] [place] [address] [id number] [place] [id number] May, [facility] [address] [id number] [address] [place] [address] May, [facility] [address] [id number] [address] [place] [address] Apr, [facility] [place] [address] [id number] [place] [id number] Mar, [facility] [address] [id number] [address] [place] [address] Mar, [facility] [address] [facility] [id number] [address] [place] [address] Mar, [facility] [address] [id number] [address] [place] [address] Mar, [facility] [place] [address] [id number] [place] [id number] Mar, [facility] [place] [address] [id number] [place] [id number] Feb, [facility] [address] [id number] [address] [place] [address] Feb, [facility] [place] [address] [id number] [place] [id number] Feb, [facility] [address] [id number] [address] [place] [address] Feb, [facility] [place] [address] [id number] [place] [id number] Feb, [facility] [address] [facility] [id number] [address] [place] [address] Feb, [facility] [place] [address] [id number] [place] [id number] Jan, [facility] [place] [address] [id number] [place] [id number] Dec, [facility] [place] [address] [id number] [place] [id number] Nov, [facility] [place] [address] [id number] [place] [id number] Oct, [facility] [place] [address] [id number] [place] [id number] Oct, [facility] [place] [address] [id number] [place] [id number] Oct, [facility] [place] [address] [id number] [place] [id number] Oct, [facility] [address] [facility] [id number] [address] [place] [address] September, [facility] [place] [address] [id number] [place] [id number] September, [facility] [address] [facility] [id number] [address] [place] [address] Aug, [facility] [place] [address] [id number] [place] [id number] Aug, [facility] [place] [address] [id number] [place] [id number] Jun, [facility] [place] [address] [id number] [place] [id number] Jun, [facility] [place] [address] [id number] [place] [id number] Feb, [facility] [address] [facility] [id number] [address] [place] [id number] Feb, [facility] [address] [id number] [place] [id number] Feb, [facility] [place] [address] [id number] [place] [id number] Dec, [facility] [address] [facility] [id number] [address] [place] [id number] Dec, [facility] [place] [address] [id number] [place] [id number] Dec, [facility] [place] [address] [id number] [place] [id number] Aug, [facility] [place] [address] [id number] [place] [id number] May, [facility] [address] [id number] [place] [id number] May, [facility] [address] [facility] [id number] [address] [place] [id number] Apr, [facility] [address] [facility] [id number] [address] [place] [id number] September, [facility] [address] [place] [id number] [address] [place] [phone] Apr, [facility] [address] [place] [id number] [address] [place] [phone] Apr, [facility] [address] [place] [id number] [address] [place] [id number] Apr, IMMUNIZATIONS No Known Immunizations SOCIAL HISTORY Never Assessed REASON FOR VISIT PLAN OF CARE VITAL SIGNS Height 66 in 2012-11-02 Weight 120.5 lbs 2012-11-02 Temperature 98.3 degrees Fahrenheit 2012-11-02 Heart Rate 72 bpm 2012-11-02 Respiratory Rate 18 2012-11-02 Blood pressure systolic 120 mmHg 2012-11-02 Blood pressure diastolic 70 mmHg 2012-11-02 MEDICATIONS Unknown Medications RESULTS No Results PROCEDURES [...]
--- OUTSIDE RECORDS SUMMARY | 2019-10-12 11:20 | XMS REPORT ---
Author Author Zoie DISLA Organization [address] Address [address] [place] [address] Care Team Providers Care Physician Assistant Name Role Phone ELLEN DISLA Unavailable PROBLEMS Type Condition ICD9-CM Code LKX43-HE Code Onset Dates Condition S tatus SNOMED Code Problem Other and unspecified hyperlipidemia E78.5 Active 58487487 Problem Type 2 diabetes mellitus wit h other specified complication, without long-term current use of insulin E11.69 Active 91547403 Problem Chronic airway obstruction, not elsewhere classified J44.9 Active 49409380 Problem CAD (coronary artery disease) I25.10 Active [id number] ALLERGIES No Information ENCOUNTERS Encounter Location Date Diagnosis [place] [address] [address] [facility] [id number] [address] 30 Jul, [address] [facility] [id number], [place] [address] 19 Jul, 2019 Hospital discharge follow-up Z09 ; Close d nondisplaced fracture of right ischium with routine healing, unspecified fracture morphology, subsequent encounter S32.601D and Peptic ulcer of stomach, unspecified chronicity K25.9 [place] [address] [address] [facility] [id number] [place] [address] Jul, [address] [facility] [address] [id number], [place] [address] Jul, Type 2 diabetes mellitus with other spec ified complication, without long-term current use of insulin E11.[address] [facility] [id number] [place] [address] 14 Jun, 2019 [facility] [address] [facility] [id number] [place] [id number] Apr, Type 2 diabetes mellitus with other spec ified complication, without long-term current use of insulin E11.69 ; Chronic airway obstruction, not elsewhere classified J44.9 and Acute nasopharyngitis J00 [facility] [address] [facility] [id number] [place] [id number] 20 Mar, 2019 Acute nasopharyngitis J00 [facility] [address] [facility] [id number] [place] [id number] 14 Mar, 2019 [facility] [address] [facility] [id number] [place] [id number] 13 Mar, 2019 Acute nasopharyngitis J00 [facility] [address] [facility] [id number] [place] [id number] 06 Mar, 2019 Encounter for immunization Z23 [facility] [address] [facility] [id number] [place] [address] Feb, Type 2 diabetes mellitus wit h other specified complication, without long-term current use of insulin E11.[address] [id number] Dec, Type 2 diabetes mellitus with other spec ified complication, without long-term current use of insulin E11.69 ; Chronic airway obstruction, not elsewhere classified J44.9 ; CAD (coronary artery disease) I25.10 and Deformity of toe of left foot M20.62 [facility] [id number] [place] [id number] Aug, Bilateral impacted cerumen H61.23 [address] [id number] Aug, Bilateral impacted cerumen H61.23 ; CAD (coronary artery disease) I25.10 and Other and unspecified hyperlipidemia E78.5 [facility] [address] [facility] [id number] [place] [id number] Jun, Encounter for Medicare annual wellness e xam Z00.00 ; Type 2 diabetes mellitus with other specified complication, without long-term current use of insulin E11.69 ; Chronic airway obstruction, not elsewhere classified J44.9 ; CAD (coronary artery disease) I25.10 ; Other and unspecified hyperlipidemia E78.5 and Breast cancer screening Z12.31 [facility] [address] [id number] [place] [id number] 11 Jun, 2018 DM w/o complication type II E11.9 ; 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, 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 ; CAD (coronary artery disease) I25.10 and Vertigo R42 [facility] [place] [address] [id number] [place] [id number] Feb, Encounter for immunization Z23 [facility] [place] [address] [id number] [place] [id number] Jan, DM w/o complication type II E11.9 and Ch ronic airway obstruction, not elsewhere classified J44.9 [facility] [place] [address] [id number] [place] [id number] Dec, CAD (coronary artery disease) I25.10 [facility] [place] [address] [id number] [place] [id number] Oct, DM w/o complication type II E11.9 ; 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, 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 and CAD (coronary artery disease) I25.10 [facility] [place] [address] [id number] [place] [id number] Jul, DM w/o complication type II E11.9 ; 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, 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 and Infective urethritis N34.2 [facility] [place] [address] [id number] [place] [id number] Jun, Syncope and collapse R55 [facility] [place] [address] [id number] [place] [id number] Jun, [facility] [place] [address] [id number] [place] [id number] May, Bronchitis J40 [facility] [place] [address] [id number] [place] [id number] May, [facility] [place] [address] [id number] [place] [id number] May, [facility] [place] [address] [id number] [place] [id number] Apr, DM w/o complication type II E11.9 [facility] [place] [address] [id number] [place] [id number] Mar, DM w/o complication type II E11.9 ; 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, 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 ; Dysuria R30.0 ; Tinea pedis of right foot B35.3 and Encounter for immunization Z23 [facility] [place] [address] [id number] [place] [id number] Feb, Medicare welcome exam Z00.00 [facility] [place] [address] [id number] [place] [id number] Jan, Chronic airway obstruction, not elsewher e classified J44.9 [facility] [place] [address] [id number] [place] [id number] Dec, [facility] [place] [address] [id number] [place] [id number] Dec, DM w/o complication type II E11.9 ; 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, 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 and Acute cystitis with hematuria N30.01 [facility] [place] [address] [id number] [place] [id number] Oct, Encounter for screening for malignant ne oplasm of colon Z12.11 [facility] [place] [address] [id number] [place] [id number] Oct, Medicare welcome exam Z00.00 [facility] [place] [address] [id number] [place] [id number] September, Medicare welcome exam Z00.00 and Encount er for immunization Z23 [facility] [place] [address] [id number] [place] [id number] September, Bronchitis J40 [facility] [place] [address] [id number] [place] [id number] September, Bronchitis J40 [facility] [place] [address] [id number] [place] [id number] September, Other and unspecified hyperlipidemia E78 .5 [facility] [place] [address] [id number] [place] [id number] Aug, DM w/o complication type II E11.9 ; 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, 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 and Other and unspecified hyperlipidemia E78.5 [facility] [place] [address] [id number] [place] [id number] May, DM w/o complication type II E11.9 and Ch ronic airway obstruction, not elsewhere classified J44.9 [facility] [place] [address] [id number] [place] [id number] Apr, Acute cystitis with hematuria N30.01 [facility] [place] [address] [id number] [place] [id number] Feb, DM w/o complication type II E11.9 [facility] [place] [address] [id number] [place] [id number] Feb, Chronic airway obstruction, not elsewher e classified J44.9 ; DM w/o complication type II E11.9 and Encounter for immunization Z23 [facility] [place] [address] [id number] [place] [id number] Dec, [facility] [place] [address] [id number] [place] [id number] Nov, Chronic airway obstruction, not elsewher e classified J44.9 [facility] [place] [address] [facility] [id number] [place] [id number] Oct, DM w/o complication type II E11.9 [facility] [place] [address] [facility] [address] [id number] [address] [place] [address] Oct, [facility] [place] [address] [id number] [place] [id number] Aug, Chronic airway obstruction, not elsewher e classified J44.9 and DM w/o complication type II E11.9 [facility] [place] [address] [id number] [place] [id number] Aug, Chronic airway obstruction, not elsewher e classified J44.9 [facility] [place] [address] [id number] [place] [id number] Aug, DM w/o complication type II E11.9 and Ch ronic airway obstruction, not elsewhere classified J44.9 [facility] [place] [address] [id number] [place] [id number] Jul, [facility] [place] [address] [id number] [place] [id number] Jul, DM w/o complication type II E11.9 [facility] [place] [address] [id number] [place] [id number] Jun, [facility] [place] [address] [id number] [place] [id number] Jun, [facility] [place] [address] [id number] [place] [id number] Jun, Chronic airway obstruction, not elsewher e classified J44.9 ; DM w/o complication type II E11.9 and Other and unspecified hyperlipidemia E78.5 [facility] [place] [address] [id number] [place] [id number] Jun, CAD (coronary artery disease) I25.10 and Dizziness R42 [facility] [place] [address] [id number] [place] [id number] Jun, Bronchitis J40 [facility] [place] [address] [id number] [place] [id number] May, Hematoma T14.8 [facility] [place] [address] [id number] [place] [id number] May, [facility] [place] [address] [id number] [place] [id number] May, Bronchitis J40 [facility] [place] [address] [id number] [place] [id number] Apr, Bronchitis J40 [facility] [place] [address] [facility] [address] [id number] [address] [place] [address] Apr, [facility] [place] [address] [id number] [place] [id number] Mar, [facility] [address] [id number] [id number] Mar, [facility] [place] [address] [id number] [place] [id number] Mar, [facility] [address] [address] [id number] [id number] Mar, [facility] [place] [address] [facility] [id number] [place] [id number] Mar, SOB (shortness of breath) R06.02 [facility] [place] [address] [id number] [place] [id number] Feb, Urinary tract infection, site not specif ied N39.0 and Hematuria, unspecified R31.9 [facility] [place] [address] [id number] [place] [id number] Feb, DM w/o complication type II E11.9 ; Enco unter for immunization Z23 and Chronic airway obstruction, not elsewhere classified J44.9 [facility] [address] [facility] [id number] [id number] Jan, [facility] [id number][place] [id number] Jan, [facility] [place] [address] [facility] [id number] [place] [id number] Dec, [facility] [place] [address] [id number] [place] [id number] Dec, [facility] [place] [address] [id number] [place] [id number] Dec, [facility] [place] [address] [facility] [id number] [place] [id number] Dec, [facility] [place] [address] [id number] [place] [id number] Dec, Blood in the stool 578.1 [facility] [place] [address] [id number] [place] [id number] Nov, [facility] [place] [address] [id number] [place] [id number] Nov, Colon cancer screening V76.51 [facility] [place] [address] [id number] [place] [id number] Nov, Vertigo 780.4 [facility] [place] [address] [id number] [place] [id number] Nov, Routine gynecological examination V72.31 ; Pap test, as part of routine gynecological examination V76.2 ; Breast cancer screening V76.10 ; Postmenopausal V49.81 and Colon cancer screening V76.51 [facility] [address] [id number] [place] [id number] Nov, [facility] [address] [id number] [place] [id number] Nov, [facility] [address] [facility] [id number] [place] [address] Nov, [facility] [address] [facility] [id number] [place] [id number] Oct, Diabetes 250.00 ; COPD (chronic obstruct misha pulmonary disease) 496 and GERD (gastroesophageal reflux disease) 530.81 [facility] [address] [place] [id number] [place] [address] Oct, [facility] [address] [id number] [place] [id number] Oct, [facility] [place] [address] [id number] [place] [id number] Oct, [facility] [place] [address] [id number] [place] [id number] Oct, Reflux 530.81 [facility] [address] [place] [id number] [place] [address] Oct, [facility] [place] [address] [id number] [place] [id number] Oct, [facility] [place] [address] [id number] [place] [id number] Oct, [facility] [place] [address] [id number] [place] [id number] Oct, Dysuria 788.1 [facility] [address] [id number] [place] [id number] Oct, Dysuria 788.1 [facility] [address] [place] [id number] [address] [place] [address] September, [facility] [place] [address] [id number] [place] [id number] September, Diabetes 250.00 and COPD (chronic obstru ctive pulmonary disease) 496 [facility] [place] [address] [id number] [place] [id number] September, [facility] [place] [address] [id number] [place] [id number] September, [facility] [address] [id number] [place] [id number] September, [facility] [place] [address] [id number] [place] [id number] Aug, Osteoarthritis 715.90 ; Diabetes 250.00 and COPD (chronic obstructive pulmonary disease) 496 [facility] [place] [address] [facility] [id number] [place] [id number] Aug, Pure hypercholesterolemia 272.0 ; Essent ial hypertension, benign 401.1 and Loss of weight 783.21 [facility] [address] [facility] [id number] [place] [address] Aug, [facility] [address] [facility] [id number] [place] [address] Aug, [facility] [place] [address] [facility] [id number] [place] [id number] Jul, [facility] [address] [facility] [id number] [place] [address] Jul, [facility] [address] [facility] [id number] [place] [address] Jun, [facility] [address] [facility] [id number] [place] [address] Jun, [facility] [place] [address] [facility] [id number] [place] [id number] Jun, [facility] [address] [facility] [id number] [place] [address] May, [facility] [place] [address] [id number] [place] [id number] May, [facility] [place] [address] [id number] [place] [id number] Apr, [facility] [address] [id number] [address] [place] [address], [place] [address] Apr, [facility] [place] [address] [id number] [place] [id number] Apr, [facility] [address] [id number] [place] [address], [place] [address] Apr, [facility] [place] [address] [id number] [place] [id number] Apr, [facility] [address] [facility] [id number] [place] [address], [place] [address] Apr, [facility] [place] [address] [id number] [place] [id number] Feb, [facility] [address] [id number] [address] [place] [address], [place] [address] Feb, [facility] [place] [address] [id number] [place] [id number] Feb, [facility] [address] [facility] [id number] [place] [address] Feb, [facility] [address] [id number] [address] [place] [address], [place] [address] Jan, [facility] [place] [address] [id number] [place] [id number] Jan, [facility] [address] [id number] [address] [place] [address], [place] [address] Jan, [facility] [place] [address] [id number] [place] [id number] Jan, [facility] [address] [facility] [id number] [place] [address], [place] [address] Jan, [facility] [address] [facility] [id number] [place] [address], [place] [address] Dec, [facility] [address] [id number] [address] [place] [address], [place] [address] Dec, [facility] [place] [address] [id number] [place] [id number] September, [facility] [address] [id number] [address] [place] [address], [place] [address] September, [facility] [address] [id number] [address] [place] [address], [place] [address] September, [facility] [place] [address] [id number] [place] [id number] September, [facility] [place] [address] [id number] [place] [id number] September, [facility] [address] [id number] [address] [place] [address], [place] [address] September, [facility] [place] [address] [id number] [place] [id number] Aug, [facility] [address] [id number] [address] [place] [address], [place] [address] Aug, [facility] [address] [id number] [address] [place] [address], [place] [address] Jul, [facility] [place] [address] [id number] [place] [id number] Jul, [facility] [address] [id number] [address] [place] [address], [place] [address] Jul, [facility] [place] [address] [id number] [place] [id number] Jun, [facility] [address] [id number] [address] [place] [address], [place] [address] Jun, [facility] [address] [id number] [address] [place] [address], [place] [address] Jun, [facility] [place] [address] [id number] [place] [id number] Jun, [facility] [place] [address] [id number] [place] [id number] May, [facility] [address] [facility] [id number] [place] [address], [place] [address] May, [facility] [address] [facility] [id number] [place] [address], [place] [address] Apr, [facility] [place] [address] [id number] [place] [id number] Mar, [facility] [address] [id number] [address] [place] [address], [place] [address] Mar, [facility] [address] [facility] [id number] [place] [address], [place] [address] Mar, [facility] [address] [facility] [id number] [place] [address], [place] [address] Mar, [facility] [place] [address] [id number] [place] [id number] Mar, [facility] [place] [address] [id number] [place] [id number] Feb, [facility] [address] [facility] [id number] [place] [address], [place] [address] Feb, [facility] [place] [address] [id number] [place] [id number] Feb, [facility] [address] [id number] [address] [place] [address], [place] [address] Feb, [facility] [place] [address] [id number] [place] [id number] Feb, [facility] [address] [id number] [address] [place] [address], [place] [address] Feb, [facility] [place] [address] [id number] [place] [id number] Jan, [facility] [place] [address] [id number] [place] [id number] Dec, [facility] [place] [address] [id number] [place] [id number] Nov, [facility] [place] [address] [id number] [place] [id number] Oct, [facility] [place] [address] [id number] [place] [id number] Oct, [facility] [place] [address] [id number] [place] [id number] Oct, [facility] [place] [address] [id number] [place] [id number] Oct, [facility] [address] [id number] [address] [place] [address], [place] [address] September, [facility] [place] [address] [id number] [place] [id number] September, [facility] [address] [facility] [id number] [place] [address], [place] [address] Aug, [facility] [place] [address] [id number] [place] [id number] Aug, [facility] [place] [address] [id number] [place] [id number] Jun, [facility] [place] [address] [id number] [place] [id number] Jun, [facility] [place] [address] [id number] [place] [id number] Feb, [facility] [address] [facility] [id number] [place] [address], [place] [address] Feb, [facility] [place] [address] [id number] [place] [id number] Feb, [facility] [address] [id number] [place] [id number] Dec, [facility] [address] [facility] [id number] [place] [address], [place] [id number] Dec, [facility] [address] [id number] [place] [id number] Dec, [facility] [address] [id number] [place], [place] [id number] Aug, [facility] [address] [facility] [id number] SARAH, [place] S [id number] May, [facility] [address] [facility] [id number] SARAH, S [id number] May, [facility] [address] [facility] [id number] [place] [id number] Apr, [facility] [address] [facility] [id number] [place] [id number] September, [facility] [address] [facility] [id number] [place] [id number] Apr, [facility] [address] [facility] [id number] [place] [phone] Apr, [facility] [address] [facility] [id number] [place] [id number] Apr, IMMUNIZATIONS No Known Immunizations SOCIAL HISTORY [...]
--- OUTSIDE RECORDS SUMMARY | 2019-10-12 11:20 | XMS REPORT ---
Author Author Zoie DISLA Organization [address] Address [address] [place] [address] Care Team Providers Care Facilities Maintenance Technician Name Role Phone ELLEN DISLA Unavailable PROBLEMS Type Condition ICD9-CM Code RIQ87-IR Code Onset Dates Condition S tatus SNOMED Code Problem Type 2 diabetes mellitus wit h other specified complication, without long-term current use of insulin E11.69 Active 04116417 Problem Other chronic pain G89.29 Active 8 6454195 Problem Chronic airway obstruction, not elsewhere classified J44.9 Active 69129980 Problem CAD (coronary artery disease) I25.10 Active 97806890 Problem Other and unspecified hyperlipidemia E78.5 Active 93597040 ALLERGIES No Information ENCOUNTERS Encounter Location Date Diagnosis [id number] [address] September, [id number] [address] September, Other chronic pain G89.29 ; Chronic airw ay obstruction, not elsewhere classified J44.9 ; Other and unspecified hyperlipidemia E78.5 ; Type 2 diabetes mellitus with other specified complication, without long-term current use of insulin E11.69 ; Anemia, unspecified type D64.9 and Status post fracture of pelvis Z87.81 [id number] [address] Jul, [id number] [address] Jul, Hospital discharge follow-up Z09 ; Close d nondisplaced fracture of right ischium with routine healing, unspecified fracture morphology, subsequent encounter S32.601D and Peptic ulcer of stomach, unspecified chronicity K25.9 [id number] [facility] [place] [address] Jul, [facility] [address] [place] [address] [id number] [place] [address] Jul, Type 2 diabetes mellitus with other spec ified complication, without long-term current use of insulin E11.69 [facility] [address] [place] [address] [id number] [facility] [address] Jun, [facility] [place] [address] [id number] [place] [id number] Apr, Type 2 diabetes mellitus with other spec ified complication, without long-term current use of insulin E11.69 ; Chronic airway obstruction, not elsewhere classified J44.9 and Acute nasopharyngitis J00 [facility] [place] [address] [id number] [place] [id number] Mar, Acute nasopharyngitis J00 [facility] [place] [address] [id number] [place] [id number] Mar, [facility] [place] [address] [id number] [place] [id number] Mar, Acute nasopharyngitis J00 [facility] [place] [address] [id number] [place] [id number] Mar, Encounter for immunization Z23 [facility] [address] [place] [address] Feb, Type 2 diabetes mellitus wit h other specified complication, without long-term current use of insulin E11.69 [facility] [place] [address] [id number] [place] [id number] Dec, Type 2 diabetes mellitus with other spec ified complication, without long-term current use of insulin E11.69 ; Chronic airway obstruction, not elsewhere classified J44.9 ; CAD (coronary artery disease) I25.10 and Deformity of toe of left foot M20.62 [facility] [place] [address] [id number] [place] [id number] Aug, Bilateral impacted cerumen H61.23 [facility] [place] [address] [facility] [id number] [place] [id number] Aug, Bilateral impacted cerumen H61.23 ; CAD (coronary artery disease) I25.10 and Other and unspecified hyperlipidemia E78.5 [facility] [address] [facility] [id number] [place] [id number] 19 Jun, 2018 Encounter for Medicare annual wellness e xam Z00.00 ; Type 2 diabetes mellitus with other specified complication, without long-term current use of insulin E11.69 ; Chronic airway obstruction, not elsewhere classified J44.9 ; CAD (coronary artery disease) I25.10 ; Other and unspecified hyperlipidemia E78.5 and Breast cancer screening Z12.31 [facility] [address] [facility] [id number] [place] [id number] 11 Jun, 2018 DM w/o complication type II E11.9 ; Hide Curer 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, not elsewhere classified J44.9 ; CAD (coronary artery disease) I25.10 and Vertigo R42 [facility] [id number] [place] [address], [place] [id number] Feb, Encounter for immunization Z23 [facility] [address] [facility] [id number] [place] [id number] Jan, DM w/o complication type II E11.9 and Ch ronic airway obstruction, not elsewhere classified J44.9 [facility] [id number] [place] [id number] Dec, CAD (coronary artery disease) I25.10 [facility] [address] [id number] [place] [id number] Oct, DM w/o complication type II E11.9 ; Hide Curer 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, not elsewhere classified J44.9 and CAD (coronary artery disease) I25.10 [facility] [address] [facility] [id number] [place] [id number] Jul, DM w/o complication type II E11.9 ; Hide Curer 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, not elsewhere classified J44.9 and Infective urethritis N34.2 [facility] [address] [facility] [id number] [place] [id number] 05 Jun, 2017 Syncope and collapse R55 [facility] [place] [address] [id number] [place] [id number] Jun, [facility] [place] [address] [id number] [place] [id number] May, Bronchitis J40 [facility] [place] [address] [id number] [place] [id number] May, [facility] [place] [address] [id number] [place] [id number] May, [facility] [place] [address] [id number] [place] [id number] Apr, DM w/o complication type II E11.9 [facility] [place] [address] [id number] [place] [id number] Mar, DM w/o complication type II E11.9 ; Hide Curer 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, not elsewhere classified J44.9 ; Dysuria R30.0 ; Tinea pedis of right foot B35.3 and Encounter for immunization Z23 [facility] [place] [address] [id number] [place] [id number] Feb, Medicare welcome exam Z00.00 [facility] [place] [address] [id number] [place] [id number] Jan, Chronic airway obstruction, not elsewher e classified J44.9 [facility] [place] [address] [id number] [place] [id number] Dec, [facility] [place] [address] [id number] [place] [id number] Dec, DM w/o complication type II E11.9 ; Hide Curer 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, not elsewhere classified J44.9 and Acute cystitis with hematuria N30.01 [facility] [place] [address] [id number] [place] [id number] Oct, Encounter for screening for malignant ne oplasm of colon Z12.11 [facility] [place] [address] [id number] [place] [id number] Oct, Medicare welcome exam Z00.00 [facility] [place] [address] [id number] [place] [id number] September, Medicare welcome exam Z00.00 and Encount er for immunization Z23 [facility] [place] [address] [id number] [place] [id number] September, Bronchitis J40 [facility] [place] [address] [id number] [place] [id number] September, Bronchitis J40 [facility] [place] [address] [id number] [place] [id number] September, Other and unspecified hyperlipidemia E78 .5 [facility] [place] [address] [id number] [place] [id number] Aug, DM w/o complication type II E11.9 ; Hide Curer 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, not elsewhere classified J44.9 and Other and unspecified hyperlipidemia E78.5 [facility] [place] [address] [id number] [place] [id number] May, DM w/o complication type II E11.9 and Ch ronic airway obstruction, not elsewhere classified J44.9 [facility] [place] [address] [id number] [place] [id number] Apr, Acute cystitis with hematuria N30.01 [facility] [place] [address] [id number] [place] [id number] Feb, DM w/o complication type II E11.9 [facility] [place] [address] [id number] [place] [id number] Feb, Chronic airway obstruction, not elsewher e classified J44.9 ; DM w/o complication type II E11.9 and Encounter for immunization Z23 [facility] [place] [address] [id number] [place] [id number] Dec, [facility] [place] [address] [id number] [place] [id number] Nov, Chronic airway obstruction, not elsewher e classified J44.9 [facility] [place] [address] [id number] [place] [id number] Oct, DM w/o complication type II E11.9 [facility] [address] [facility] [id number] [address] [place] [address] Oct, [facility] [place] [address] [id number] [place] [id number] Aug, Chronic airway obstruction, not elsewher e classified J44.9 and DM w/o complication type II E11.9 [facility] [place] [address] [id number] [place] [id number] Aug, Chronic airway obstruction, not elsewher e classified J44.9 [facility] [place] [address] [id number] [place] [id number] Aug, DM w/o complication type II E11.9 and Ch ronic airway obstruction, not elsewhere classified J44.9 [facility] [place] [address] [id number] [place] [id number] Jul, [facility] [place] [address] [id number] [place] [id number] Jul, DM w/o complication type II E11.9 [facility] [place] [address] [id number] [place] [id number] Jun, [facility] [place] [address] [id number] [place] [id number] Jun, [facility] [place] [address] [id number] [place] [id number] Jun, Chronic airway obstruction, not elsewher e classified J44.9 ; DM w/o complication type II E11.9 and Other and unspecified hyperlipidemia E78.5 [facility] [place] [address] [id number] [place] [id number] Jun, CAD (coronary artery disease) I25.10 and Dizziness R42 [facility] [place] [address] [id number] [place] [id number] Jun, Bronchitis J40 [facility] [place] [address] [id number] [place] [id number] May, Hematoma T14.8 [facility] [place] [address] [id number] [place] [id number] May, [facility] [place] [address] [id number] [place] [id number] May, Bronchitis J40 [facility] [place] [address] [facility] [id number] [place] [id number] Apr, Bronchitis J40 [facility] [address] [facility] [id number] 100[address] [place] [address] Apr, [facility] [place] [address] [id number] [place] [id number] Mar, [facility] [address] [id number] [place] [id number] Mar, [facility] [place] [address] [facility] [id number] [place] [id number] Mar, [facility] [address] [id number] [id number] Mar, [facility] [place] [address] [facility] [id number] [place] [id number] Mar, SOB (shortness of breath) R06.02 [facility] [place] [address] [facility] [id number] [place] [id number] Feb, Urinary tract infection, site not specif ied N39.0 and Hematuria, unspecified R31.9 [facility] [place] [address] [facility] [id number] [place] [id number] Feb, DM w/o complication type II E11.9 ; Enco unter for immunization Z23 and Chronic airway obstruction, not elsewhere classified J44.9 [facility] [address] [id number] [id number] Jan, [facility] [id number] [place] [id number] Jan, [facility] [place] [address] [facility] [id number] [place] [id number] Dec, [facility] [place] [address] [facility] [id number] [place] [id number] Dec, [facility] [place] [address] [facility] [id number] [place] [id number] Dec, [facility] [place] [address] [facility] [id number] [place] [id number] Dec, [facility] [place] [address] [id number] [place] [id number] Dec, Blood in the stool 578.1 [facility] [place] [address] [id number] [place] [id number] Nov, [facility] [place] [address] [id number] [place] [id number] Nov, Colon cancer screening V76.51 [facility] [place] [address] [id number] [place] [id number] Nov, Vertigo 780.4 [facility] [place] [address] [id number] [place] [id number] Nov, Routine gynecological examination V72.31 ; Pap test, as part of routine gynecological examination V76.2 ; Breast cancer screening V76.10 ; Postmenopausal V49.81 and Colon cancer screening V76.51 [facility] [place] [address] [id number] [place] [id number] Nov, [facility] [place] [address] [id number] [place] [id number] Nov, [facility] [address] [id number] [address] [place] [address] Nov, [facility] [place] [address] [id number] [place] [id number] Oct, Diabetes 250.00 ; COPD (chronic obstruct misha pulmonary disease) 496 and GERD (gastroesophageal reflux disease) 530.81 [facility] [address] [facility] [id number] [address] [place] [address] Oct, [facility] [place] [address] [id number] [place] [id number] Oct, [facility] [place] [address] [id number] [place] [id number] Oct, [facility] [place] [address] [id number] [place] [id number] Oct, Reflux 530.81 [facility] [id number] [place] [address] Oct, [facility] [place] [address] [facility] [id number] [place] [id number] Oct, [facility] [place] [address] [facility] [id number] [place] [id number] Oct, [facility] [place] [address] [facility] [id number] [place] [id number] Oct, Dysuria 788.1 [facility] [place] [address] [facility] [id number] [place] [id number] Oct, Dysuria 788.1 [facility] [id number] [place] [address] September, [facility] [place] [address] [facility] [id number] [place] [id number] September, Diabetes 250.00 and COPD (chronic obstru ctive pulmonary disease) 496 [facility] [place] [address] [facility] [id number] [place] [id number] September, [facility] [place] [address] [facility] [id number] [place] [id number] September, [facility] [address] [id number] [id number] September, [facility] [place] [address] [id number] [place] [id number] Aug, Osteoarthritis 715.90 ; Diabetes 250.00 and COPD (chronic obstructive pulmonary disease) 496 [facility] [place] [address] [id number] [place] [id number] Aug, Pure hypercholesterolemia 272.0 ; Essent ial hypertension, benign 401.1 and Loss of weight 783.21 [facility] [address] [facility] [id number] [address] [place] [address] Aug, [facility] [id number] [place] [address] Aug, [facility] [address] [id number] [place] [id number] Jul, [facility] [address] [id number] [address] [place] [address], [place] [address] Jul, [facility] [address] [id number] [address] [place] [address], [place] [address] Jun, [facility] [address] [id number] [address] [place] [address], [place] [address] Jun, [facility] [place] [address] [id number] [place] [id number] Jun, [facility] [address] [id number] [address] [place] [address], [place] [address] May, [facility] [place] [address] [id number] [place] [id number] May, [facility] [place] [address] [id number] [place] [id number] Apr, [facility] [address] [id number] [address] [place] [address], [place] [address] Apr, [facility] [place] [address] [id number] [place] [id number] Apr, [facility] [address] [id number] [address] [place] [address], [place] [address] Apr, [facility] [place] [address] [id number] [place] [id number] Apr, [facility] [address] [id number] [address] [place] [address], [place] [address] Apr, [facility] [place] [address] [id number] [place] [id number] Feb, [facility] [address] [id number] [address] [place] [address], [place] [address] Feb, [facility] [place] [address] [id number] [place] [id number] Feb, [facility] [address] [id number] [address] [place] [address] Feb, [facility] [address] [id number] [address] [place] [address], [place] [address] Jan, [facility] [place] [address] [id number] [place] [id number] Jan, [facility] [address] [id number] [facility] [place] [address] Jan, [facility] [place] [address] [id number] [place] [id number] Jan, [facility] [address] [id number] [address] [place] [address], [place] [address] Jan, [facility] [address] [id number] [address] [place] [address], [place] [address] Dec, [facility] [address] [id number] [address] [place] [address], [place] [address] Dec, [facility] [place] [address] [id number] [place] [id number] September, [facility] [address] [id number] [address] [place] [address], [place] [address] September, [facility] [address] [id number] [address] [place] [address], [place] [address] September, [facility] [place] [address] [id number] [place] [id number] September, [facility] [place] [address] [id number] [place] [id number] September, [facility] [address] [id number] [address] [place] [address], [place] [address] September, [facility] [place] [address] [id number] [place] [id number] Aug, [facility] [address] [id number] [address] [place] [address], [place] [address] Aug, [facility] [address] [id number] [facility] [place] [address] Jul, [facility] [place] [address] [id number] [place] [id number] Jul, [facility] [address] [id number] [address] [place] [address] Jul, [facility] [place] [address] [id number] [place] [id number] Jun, [facility] [address] [id number] [address] [place] [address] Jun, [facility] [address] [id number] [address] [place] [address], [place] [address] Jun, [facility] [place] [address] [id number] [place] [id number] Jun, [facility] [place] [address] [id number] [place] [id number] May, [facility] [address] [id number] [address] [place] [address] May, [facility] [address] [id number] [address] [place] [address] Apr, [facility] [place] [address] [id number] [place] [id number] Mar, [facility] [address] [id number] [address] [place] [address] Mar, [facility] [address] [facility] [id number] [address] [place] [address] Mar, [facility] [address] [id number] [address] [place] [address] Mar, [facility] [place] [address] [id number] [place] [id number] Mar, [facility] [place] [address] [id number] [place] [id number] Feb, [facility] [address] [id number] [address] [place] [address] Feb, [facility] [place] [address] [id number] [place] [id number] Feb, [facility] [address] [id number] [address] [place] [address] Feb, [facility] [place] [address] [id number] [place] [id number] Feb, [facility] [address] [facility] [id number] [address] [place] [address] Feb, [facility] [place] [address] [id number] [place] [id number] Jan, [facility] [place] [address] [id number] [place] [id number] Dec, [facility] [place] [address] [id number] [place] [id number] Nov, [facility] [place] [address] [id number] [place] [id number] Oct, [facility] [place] [address] [id number] [place] [id number] Oct, [facility] [place] [address] [id number] [place] [id number] Oct, [facility] [place] [address] [id number] [place] [id number] Oct, [facility] [address] [facility] [id number] [address] [place] [address] September, [facility] [place] [address] [id number] [place] [id number] September, [facility] [address] [facility] [id number] [address] [place] [address] Aug, [facility] [place] [address] [id number] [place] [id number] Aug, [facility] [place] [address] [id number] [place] [id number] Jun, [facility] [place] [address] [id number] [place] [id number] Jun, [facility] [place] [address] [id number] [place] [id number] Feb, [facility] [address] [facility] [id number] [address] [place] [id number] Feb, [facility] [address] [id number] [place] [id number] Feb, [facility] [address] [id number] [place] [id number] Dec, [facility] [address] [facility] [id number] [address] [place] [id number] Dec, [facility] [place] [address] [id number] [place] [id number] Dec, [facility] [place] [address] [id number] [place] [id number] Aug, [facility] [place] [address] [id number] [place] [id number] May, [facility] [address] [id number] [place] [id number] May, [facility] [address] [facility] [id number] [address] [place] [id number] Apr, [facility] [address] [facility] [id number] [address] [place] [id number] September, [facility] [address] [facility] [id number] [address] [place] [id number] Apr, [facility] [address] [place] [id number] [address] [place] [id number] Apr, [facility] [address] [place] [id number] [address] [place] [id number] Apr, IMMUNIZATIONS No Known Immunizations SOCIAL HISTORY Never Assessed REASON FOR VISIT PLAN OF CARE VITAL SIGNS Height 66 in 2012-10-22 Weight 123.6 lbs 2012-10-22 Temperature 97.4 degrees Fahrenheit 2012-10-22 Heart Rate 72 bpm 2012-10-22 Respiratory Rate 16 2012-10-22 Blood pressure systolic 130 mmHg 2012-10-22 Blood pressure diastolic 70 mmHg 2012-10-22 MEDICATIONS Unknown Medications RESULTS No Results PROCEDURES [...]
--- OUTSIDE RECORDS SUMMARY | 2019-10-12 11:21 | XMS REPORT ---
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 Name Role Phone ELLEN DISLA Unavailable PROBLEMS Type Condition ICD9-CM Code [id number] Code Onset Dates Condition S tatus SNOMED Code Problem Other and unspecified hyperlipidemia E78.5 Active 65490176 Problem Type 2 diabetes mellitus wit h other specified complication, without long-term current use of insulin E11.69 Active 36531432 Problem Chronic airway obstruction, not elsewhere classified J44.9 Active 09165730 Problem CAD (coronary artery disease) I25.10 Active [id number] ALLERGIES No Information ENCOUNTERS Encounter Location Date Diagnosis [id number] [address] Jul, Hospital discharge follow-up Z09 ; Close d nondisplaced fracture of right ischium with routine healing, unspecified fracture morphology, subsequent encounter S32.601D and Peptic ulcer of stomach, unspecified chronicity K25.9 [id number] [address] Jul, [address] [address] 04 Jul, 2019 Type 2 diabetes mellitus with other spec ified complication, without long-term current use of insulin E11.[address] 101 [facility] [id number] [address] 14 Jun, 2019 [facility] [address] [id number] [id number] Apr, Type 2 diabetes mellitus with other spec ified complication, without long-term current use of insulin E11.69 ; Chronic airway obstruction, not elsewhere classified J44.9 and Acute nasopharyngitis J00 [address] [facility] [id number] [place] [id number] Mar, Acute nasopharyngitis J00 [facility] [address] [facility] [id number] [place] [id number] 14 Mar, 2019 [facility] [address] [facility] [id number] [place] [id number] Mar, Acute nasopharyngitis J00 [facility] [address] [facility] [id number] [place] [id number] 06 Mar, 2019 Encounter for immunization Z23 [facility] [address] [facility] [id number] 100[address] [place] [address] Feb, Type 2 diabetes mellitus wit h other specified complication, without long-term current use of insulin E11.69 [facility] [address] [facility] [id number] [place] [id number] Dec, Type 2 diabetes mellitus with other spec ified complication, without long-term current use of insulin E11.69 ; Chronic airway obstruction, not elsewhere classified J44.9 ; CAD (coronary artery disease) I25.10 and Deformity of toe of left foot M20.62 [facility] [id number] [place] [id number] Aug, Bilateral impacted cerumen H61.23 [facility] [address] [facility] [id number] [place] [id number] Aug, Bilateral impacted cerumen H61.23 ; CAD (coronary artery disease) I25.10 and Other and unspecified hyperlipidemia E78.5 [facility] [address] [facility] [id number] [place] [id number] Jun, Encounter for Medicare annual wellness e xam Z00.00 ; Type 2 diabetes mellitus with other specified complication, without long-term current use of insulin E11.69 ; Chronic airway obstruction, not elsewhere classified J44.9 ; CAD (coronary artery disease) I25.10 ; Other and unspecified hyperlipidemia E78.5 and Breast cancer screening Z12.31 [facility] [address] [facility] [id number] [place] [id number] 11 Jun, 2018 DM w/o complication type II E11.9 ; Bag Bundler 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, not elsewhere classified J44.9 ; CAD (coronary artery disease) I25.10 and Vertigo R42 [facility] [place] [address] [id number] [place] [id number] 09 Feb, 2018 Encounter for immunization Z23 [facility] [place] [address] [id number] [place] [id number] Jan, DM w/o complication type II E11.9 and Ch ronic airway obstruction, not elsewhere classified J44.9 [facility] [place] [address] [id number] [place] [id number] Dec, CAD (coronary artery disease) I25.10 [facility] [place] [address] [id number] [place] [id number] Oct, DM w/o complication type II E11.9 ; Bag Bundler raiv airway obstruction, not elsewhere classified J44.9 and CAD (coronary artery disease) I25.10 [facility] [place] [address] [id number] [place] [id number] Jul, DM w/o complication type II E11.9 ; Bag Bundler ravi airway obstruction, not elsewhere classified J44.9 and Infective urethritis N34.2 [facility] [place] [address] [id number] [place] [id number] Jun, Syncope and collapse R55 [facility] [place] [address] [id number] [place] [id number] Jun, [facility] [place] [address] [id number] [place] [id number] May, Bronchitis J40 [facility] [place] [address] [id number] [place] [id number] May, [facility] [place] [address] [id number] [place] [id number] May, [facility] [place] [address] [id number] [place] [id number] Apr, DM w/o complication type II E11.9 [facility] [place] [address] [id number] [place] [id number] Mar, DM w/o complication type II E11.9 ; Bag Bundler ravi airway obstruction, not elsewhere classified J44.9 ; Dysuria R30.0 ; Tinea pedis of right foot B35.3 and Encounter for immunization Z23 [facility] [place] [address] [id number] [place] [id number] Feb, Medicare welcome exam Z00.00 [facility] [place] [address] [id number] [place] [id number] Jan, Chronic airway obstruction, not elsewher e classified J44.9 [facility] [place] [address] [id number] [place] [id number] Dec, [facility] [place] [address] [id number] [place] [id number] Dec, DM w/o complication type II E11.9 ; Bag Bundler ravi airway obstruction, not elsewhere classified J44.9 and Acute cystitis with hematuria N30.01 [facility] [place] [address] [id number] [place] [id number] Oct, Encounter for screening for malignant ne oplasm of colon Z12.11 [facility] [place] [address] [id number] [place] [id number] Oct, Medicare welcome exam Z00.00 [facility] [place] [address] [id number] [place] [id number] September, Medicare welcome exam Z00.00 and Encount er for immunization Z23 [facility] [place] [address] [id number] [place] [id number] September, Bronchitis J40 [facility] [place] [address] [id number] [place] [id number] September, Bronchitis J40 [facility] [place] [address] [id number] [place] [id number] September, Other and unspecified hyperlipidemia E78 .5 [facility] [place] [address] [id number] [place] [id number] Aug, DM w/o complication type II E11.9 ; Bag Bundler ravi airway obstruction, not elsewhere classified J44.9 and Other and unspecified hyperlipidemia E78.5 [facility] [place] [address] [id number] [place] [id number] May, DM w/o complication type II E11.9 and Ch ronic airway obstruction, not elsewhere classified J44.9 [facility] [place] [address] [id number] [place] [id number] Apr, Acute cystitis with hematuria N30.01 [facility] [place] [address] [id number] [place] [id number] Feb, DM w/o complication type II E11.9 [facility] [place] [address] [id number] [place] [id number] Feb, Chronic airway obstruction, not elsewher e classified J44.9 ; DM w/o complication type II E11.9 and Encounter for immunization Z23 [facility] [place] [address] [id number] [place] [id number] Dec, [facility] [place] [address] [id number] [place] [id number] Nov, Chronic airway obstruction, not elsewher e classified J44.9 [facility] [place] [address] [id number] [place] [id number] Oct, DM w/o complication type II E11.9 [facility] [address] [facility] [id number] 100[place] [address] Oct, [facility] [place] [address] [id number] [place] [id number] Aug, Chronic airway obstruction, not elsewher e classified J44.9 and DM w/o complication type II E11.9 [facility] [place] [address] [id number] [place] [id number] Aug, Chronic airway obstruction, not elsewher e classified J44.9 [facility] [place] [address] [id number] [place] [id number] Aug, DM w/o complication type II E11.9 and Ch ronic airway obstruction, not elsewhere classified J44.9 [facility] [place] [address] [id number] [place] [id number] Jul, [facility] [place] [address] [id number] [place] [id number] Jul, DM w/o complication type II E11.9 [facility] [place] [address] [id number] [place] [id number] Jun, [facility] [place] [address] [id number] [place] [id number] Jun, [facility] [place] [address] [id number] [place] [id number] Jun, Chronic airway obstruction, not elsewher e classified J44.9 ; DM w/o complication type II E11.9 and Other and unspecified hyperlipidemia E78.5 [facility] [place] [address] [id number] [place] [id number] Jun, CAD (coronary artery disease) I25.10 and Dizziness R42 [facility] [place] [address] [facility] [id number] [place] [id number] Jun, Bronchitis J40 [facility] [place] [address] [id number] [place] [id number] May, Hematoma T14.8 [facility] [place] [address] [facility] [id number] [place] [id number] May, [facility] [place] [address] [facility] [id number] [place] [id number] May, Bronchitis J40 [facility] [place] [address] [facility] [id number] [place] [id number] Apr, Bronchitis J40 [facility] [address] [facility] [id number] [address] [place] [address] Apr, [facility] [place] [address] [facility] [id number] [place] [id number] Mar, [facility] [address] [id number] [id number] Mar, [facility] [place] [address] [facility] [id number] [place] [id number] Mar, [facility] [address] [id number] [id number] Mar, [facility] [address] [id number] [place] [id number] Mar, SOB (shortness of breath) R06.02 [facility] [address] [id number] [place] [id number] Feb, Urinary tract infection, site not specif ied N39.0 and Hematuria, unspecified R31.9 [facility] [address] [id number] [place] [id number] Feb, DM w/o complication type II E11.9 ; Enco unter for immunization Z23 and Chronic airway obstruction, not elsewhere classified J44.9 [facility] [id number] [place] [address] [id number] Jan, [facility] [address] [id number] [facility] [place] [id number] Jan, [facility] [address] [id number] [place] [id number] Dec, [facility] [address] [id number] [place] [id number] Dec, [facility] [address] [id number] [place] [id number] Dec, [facility] [address] [id number] [place] [id number] Dec, [facility] [address] [id number] [place] [id number] Dec, Blood in the stool 578.1 [facility] [address] [id number] [place] [id number] Nov, [facility] [address] [id number] [place] [id number] Nov, Colon cancer screening V76.51 [facility] [address] [id number] [place] [id number] Nov, Vertigo 780.4 [facility] [address] [id number] [place] [id number] Nov, Routine gynecological examination V72.31 ; Pap test, as part of routine gynecological examination V76.2 ; Breast cancer screening V76.10 ; Postmenopausal V49.81 and Colon cancer screening V76.51 [facility] [address] [id number] [place] [id number] Nov, [facility] [address] [facility] [id number] [place] [id number] Nov, [facility] [address] [id number] [address] [place] [address] Nov, [facility] [address] [facility] [id number] [place] [id number] Oct, Diabetes 250.00 ; COPD (chronic obstruct misha pulmonary disease) 496 and GERD (gastroesophageal reflux disease) 530.81 [facility] [address] [id number] [address] [place] [address] Oct, [facility] [address] [id number] [place] [id number] Oct, [facility] [address] [id number] [place] [id number] Oct, [facility] [place] [address] [id number] [place] [id number] Oct, Reflux 530.81 [facility] [address] [id number] [address] [place] [address] Oct, [facility] [address] [id number] [place] [id number] Oct, [facility] [place] [address] [id number] [place] [id number] Oct, [facility] [place] [address] [id number] [place] [id number] Oct, Dysuria 788.1 [facility] [place] [address] [facility] [id number] [place] [id number] Oct, Dysuria 788.1 [facility] [address] [id number] [address] [place] [address] September, [facility] [address] [id number] [place] [id number] September, Diabetes 250.00 and COPD (chronic obstru ctive pulmonary disease) 496 [facility] [place] [address] [facility] [id number] [place] [id number] September, [facility] [place] [address] [facility] [id number] [place] [id number] September, [facility] [place] [address] [address] [facility] [id number] [id number] September, [facility] [place] [address] [facility] [id number] [place] [id number] Aug, Osteoarthritis 715.90 ; Diabetes 250.00 and COPD (chronic obstructive pulmonary disease) 496 [facility] [place] [address] [facility] [id number] [place] [id number] Aug, Pure hypercholesterolemia 272.0 ; Essent ial hypertension, benign 401.1 and Loss of weight 783.21 [facility] [address] [id number] [address] [place] [address] Aug, [facility] [address] [facility] [id number] [address] [place] [address] Aug, [facility] [address] [facility] [id number] [place] [id number] Jul, [facility] [address] [id number] [address] [place] [address] Jul, [facility] [address] [id number] [address] [place] [address] Jun, [facility] [address] [facility] [id number] [address] [place] [address] Jun, [facility] [address] [facility] [id number] [place] [id number] Jun, [facility] [address] [id number] [address] [place] [address] May, [facility] [address] [id number] [place] [id number] May, [facility] [place] [address] [id number] [place] [id number] Apr, [facility] [address] [id number] 100[facility] [place] [address] Apr, [facility] [place] [address] [id number] [place] [id number] Apr, [facility] [address] [id number] [address] [place] [address], [place] [address] Apr, [facility] [place] [address] [id number] [place] [id number] Apr, [facility] [address] [id number] [address] [place] [address], [place] [address] Apr, [facility] [place] [address] [id number] [place] [id number] Feb, [facility] [address] [id number] [address] [place] [address], [place] [address] Feb, [facility] [place] [address] [id number] [place] [id number] Feb, [facility] [address] [id number] [address] [place] [address], [place] [address] Feb, [facility] [address] [id number] [address] [place] [address], [place] [address] Jan, [facility] [place] [address] [id number] [place] [id number] Jan, [facility] [address] [id number] [address] [place] [address], [place] [address] Jan, [facility] [place] [address] [id number] [place] [id number] Jan, [facility] [address] [id number] [address] [place] [address], [place] [address] Jan, [facility] [address] [id number] [address] [place] [address], [place] [address] Dec, [facility] [address] [id number] [address] [place] [address], [place] [address] Dec, [facility] [place] [address] [id number] [place] [id number] September, [facility] [address] [id number] [address] [place] [address], [place] [address] September, [facility] [address] [id number] [address] [place] [address], [place] [address] September, [facility] [place] [address] [id number] [place] [id number] September, [facility] [place] [address] [id number] [place] [id number] September, [facility] [address] [id number] [address] [place] [address], [place] [address] September, [facility] [place] [address] [id number] [place] [id number] Aug, [facility] [address] [id number] [address] [place] [address], [place] [address] Aug, [facility] [address] [id number] [address] [place] [address], [place] [address] Jul, [facility] [place] [address] [id number] [place] [id number] Jul, [facility] [address] [id number] [address] [place] [address], [place] [address] Jul, [facility] [place] [address] [id number] [place] [id number] Jun, [facility] [address] [id number] [address] [place] [address], [place] [address] Jun, [facility] [address] [id number] [address] [place] [address], [place] [address] Jun, [facility] [place] [address] [id number] [place] [id number] Jun, [facility] [place] [address] [id number] [place] [id number] May, [facility] [address] [id number] [address] [place] [address] May, [facility] [address] [facility] [id number] [address] [place] [address] Apr, [facility] [place] [address] [id number] [place] [id number] Mar, [facility] [address] [facility] [id number] [address] [place] [address] Mar, [facility] [address] [facility] [id number] [address] [place] [address] Mar, [facility] [address] [facility] [id number] [address] [place] [address] Mar, [facility] [place] [address] [id number] [place] [id number] Mar, [facility] [place] [address] [id number] [place] [id number] Feb, [facility] [address] [facility] [id number] [address] [place] [address] Feb, [facility] [place] [address] [id number] [place] [id number] Feb, [facility] [address] [facility] [id number] [address] [place] [address] Feb, [facility] [place] [address] [id number] [place] [id number] Feb, [facility] [address] [id number] [address] [place] [address] Feb, [facility] [place] [address] [id number] [place] [id number] Jan, [facility] [place] [address] [id number] [place] [id number] Dec, [facility] [place] [address] [id number] [place] [id number] Nov, [facility] [place] [address] [id number] [place] [id number] Oct, [facility] [place] [address] [id number] [place] [id number] Oct, [facility] [place] [address] [id number] [place] [id number] Oct, [facility] [place] [address] [id number] [place] [id number] Oct, [facility] [address] [id number] [address] [place] [address] September, [facility] [place] [address] [id number] [place] [id number] September, [facility] [address] [id number] [address] [place] [address] Aug, [facility] [place] [address] [id number] [place] [id number] Aug, [facility] [place] [address] [id number] [place] [id number] Jun, [facility] [place] [address] [id number] [place] [id number] Jun, [facility] [place] [address] [id number] [place] [id number] Feb, [facility] [address] [id number] [address] [place] [address] Feb, [facility] [place] [address] [id number] [place] [id number] Feb, [facility] [place] [address] [id number] [place] [id number] Dec, [facility] [address] [id number] [address] [place] [address], [place] [address] Dec, [facility] [place] [address] [id number] [place] [id number] Dec, [facility] [place] [address] [id number] [place] [id number] Aug, [facility] [address] [id number] [place] [id number] May, [facility] [address] [id number] [place] [id number] May, [facility] [address] [facility] [id number] [address] [place] [id number] Apr, [facility] [address] [facility] [id number] [address] [place] [id number] September, [facility] [address] [facility] [id number] [address] [place] [id number] Apr, [facility] [address] [facility] [id number] [address] [place] [id number] Apr, [facility] [address] [facility] [id number] [address] [place] [id number] Apr, IMMUNIZATIONS No Known Immunizations SOCIAL HISTORY Never Assessed REASON FOR VISIT PLAN OF CARE VITAL SIGNS Height 66 in 2013-04-05 Weight 135.2 lbs 2013-04-05 Temperature 96.7 degrees Fahrenheit 2013-04-05 Heart Rate 76 bpm 2013-04-05 Respiratory Rate 16 2013-04-05 Blood pressure systolic 118 mmHg 2013-04-05 Blood pressure diastolic 68 mmHg 2013-04-05 MEDICATIONS No Known Medications RESULTS No Results PROCEDURES Procedure Date Ordered Result Body Site IMMUNOASSAY,INFECTIOUS AGENT Apr 05, 2013 INSTRUCTIONS MEDICATIONS ADMINISTERED No Known Medications [...]
--- OUTSIDE RECORDS SUMMARY | 2019-10-12 11:21 | XMS REPORT ---
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 Name Role Phone ELLEN DISLA Unavailable PROBLEMS Type Condition ICD9-CM Code CGB52-ZG Code Onset Dates Condition S tatus SNOMED Code Problem Other and unspecified hyperlipidemia E78.5 Active 48668835 Problem Type 2 diabetes mellitus wit h other specified complication, without long-term current use of insulin E11.69 Active 79568995 Problem Chronic airway obstruction, not elsewhere classified J44.9 Active 69024589 Problem CAD (coronary artery disease) I25.10 Active 85070739 ALLERGIES No Information ENCOUNTERS Encounter Location Date Diagnosis [place] [address] [facility] [id number], [place] [address] 30 Jul, [address] [facility] [id number], [place] [address] Jul, Hospital discharge follow-up Z09 ; Close d nondisplaced fracture of right ischium with routine healing, unspecified fracture morphology, subsequent encounter S32.601D and Peptic ulcer of stomach, unspecified chronicity K25.9 [place] [address] [facility] [id number] [place] [address] Jul, [address] [facility] [address] [id number], [place] [address] Jul, Type 2 diabetes mellitus with other spec ified complication, without long-term current use of insulin E11.[address] [facility] [id number] [place] [address] 14 Jun, 2019 [facility] [address] [facility] [id number] [place] [id number] Apr, Type 2 diabetes mellitus with other spec ified complication, without long-term current use of insulin E11.69 ; Chronic airway obstruction, not elsewhere classified J44.9 and Acute nasopharyngitis J00 [facility] [address] [facility] [id number] [place] [id number] 20 Mar, 2019 Acute nasopharyngitis J00 [facility] [address] [facility] [id number] [place] [id number] 14 Mar, 2019 [facility] [address] [facility] [id number] [place] [id number] 13 Mar, 2019 Acute nasopharyngitis J00 [facility] [address] [facility] [id number] [place] [id number] 06 Mar, 2019 Encounter for immunization Z23 [facility] [address] [facility] [id number] [address] [place] [address] Feb, Type 2 diabetes mellitus wit h other specified complication, without long-term current use of insulin E11.69 [address] [id number] Dec, Type 2 diabetes mellitus with other spec ified complication, without long-term current use of insulin E11.69 ; Chronic airway obstruction, not elsewhere classified J44.9 ; CAD (coronary artery disease) I25.10 and Deformity of toe of left foot M20.62 [facility] [id number] [place] [id number] Aug, Bilateral impacted cerumen H61.23 [address] [id number] Aug, Bilateral impacted cerumen H61.23 ; CAD (coronary artery disease) I25.10 and Other and unspecified hyperlipidemia E78.5 [facility] [address] [facility] [id number] [place] [id number] Jun, Encounter for Medicare annual wellness e xam Z00.00 ; Type 2 diabetes mellitus with other specified complication, without long-term current use of insulin E11.69 ; Chronic airway obstruction, not elsewhere classified J44.9 ; CAD (coronary artery disease) I25.10 ; Other and unspecified hyperlipidemia E78.5 and Breast cancer screening Z12.31 [facility] [address] [id number] [place] [id number] 11 Jun, 2018 DM w/o complication type II E11.9 ; 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, 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 ; CAD (coronary artery disease) I25.10 and Vertigo R42 [facility] [place] [address] [id number] [place] [id number] Feb, Encounter for immunization Z23 [facility] [place] [address] [id number] [place] [id number] Jan, DM w/o complication type II E11.9 and Ch ronic airway obstruction, not elsewhere classified J44.9 [facility] [place] [address] [id number] [place] [id number] Dec, CAD (coronary artery disease) I25.10 [facility] [place] [address] [id number] [place] [id number] Oct, DM w/o complication type II E11.9 ; 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, 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.9 and CAD (coronary artery disease) I25.10 [facility] [place] [address] [id number] [place] [id number] Jul, DM w/o complication type II E11.9 ; 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, not elsewhere 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 J44.9 and Infective urethritis N34.2 [facility] [place] [address] [id number] [place] [id number] Jun, Syncope and collapse R55 [facility] [place] [address] [id number] [place] [id number] Jun, [facility] [place] [address] [id number] [place] [id number] May, Bronchitis J40 [facility] [place] [address] [id number] [place] [id number] May, [facility] [place] [address] [id number] [place] [id number] May, [facility] [place] [address] [id number] [place] [id number] Apr, DM w/o complication type II E11.9 [facility] [place] [address] [id number] [place] [id number] Mar, DM w/o complication type II E11.9 ; 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, not 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 J44.9 ; Dysuria R30.0 ; Tinea pedis of right foot B35.3 and Encounter for immunization Z23 [facility] [place] [address] [id number] [place] [id number] Feb, Medicare welcome exam Z00.00 [facility] [place] [address] [id number] [place] [id number] Jan, Chronic airway obstruction, not elsewher e classified J44.9 [facility] [place] [address] [id number] [place] [id number] Dec, [facility] [place] [address] [id number] [place] [id number] Dec, DM w/o complication type II E11.9 ; 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, not 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 J44.9 and Acute cystitis with hematuria N30.01 [facility] [place] [address] [id number] [place] [id number] Oct, Encounter for screening for malignant ne oplasm of colon Z12.11 [facility] [place] [address] [id number] [place] [id number] Oct, Medicare welcome exam Z00.00 [facility] [place] [address] [id number] [place] [id number] September, Medicare welcome exam Z00.00 and Encount er for immunization Z23 [facility] [place] [address] [id number] [place] [id number] September, Bronchitis J40 [facility] [place] [address] [id number] [place] [id number] September, Bronchitis J40 [facility] [place] [address] [id number] [place] [id number] September, Other and unspecified hyperlipidemia E78 .5 [facility] [place] [address] [id number] [place] [id number] Aug, DM w/o complication type II E11.9 ; 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, 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.9 and Other and unspecified hyperlipidemia E78.5 [facility] [place] [address] [id number] [place] [id number] May, DM w/o complication type II E11.9 and Ch ronic airway obstruction, not elsewhere classified J44.9 [facility] [place] [address] [id number] [place] [id number] Apr, Acute cystitis with hematuria N30.01 [facility] [place] [address] [id number] [place] [id number] Feb, DM w/o complication type II E11.9 [facility] [place] [address] [id number] [place] [id number] Feb, Chronic airway obstruction, not elsewher e classified J44.9 ; DM w/o complication type II E11.9 and Encounter for immunization Z23 [facility] [place] [address] [id number] [place] [id number] Dec, [facility] [place] [address] [id number] [place] [id number] Nov, Chronic airway obstruction, not elsewher e classified J44.9 [facility] [place] [address] [facility] [id number] [place] [id number] Oct, DM w/o complication type II E11.9 [facility] [address] [facility] [id number] [address] [place] [address] Oct, [facility] [place] [address] [id number] [place] [id number] Aug, Chronic airway obstruction, not elsewher e classified J44.9 and DM w/o complication type II E11.9 [facility] [place] [address] [id number] [place] [id number] Aug, Chronic airway obstruction, not elsewher e classified J44.9 [facility] [place] [address] [id number] [place] [id number] Aug, DM w/o complication type II E11.9 and Ch ronic airway obstruction, not elsewhere classified J44.9 [facility] [place] [address] [id number] [place] [id number] Jul, [facility] [place] [address] [id number] [place] [id number] Jul, DM w/o complication type II E11.9 [facility] [place] [address] [id number] [place] [id number] Jun, [facility] [place] [address] [id number] [place] [id number] Jun, [facility] [place] [address] [id number] [place] [id number] Jun, Chronic airway obstruction, not elsewher e classified J44.9 ; DM w/o complication type II E11.9 and Other and unspecified hyperlipidemia E78.5 [facility] [place] [address] [id number] [place] [id number] Jun, CAD (coronary artery disease) I25.10 and Dizziness R42 [facility] [place] [address] [id number] [place] [id number] Jun, Bronchitis J40 [facility] [place] [address] [id number] [place] [id number] May, Hematoma T14.8 [facility] [place] [address] [id number] [place] [id number] May, [facility] [place] [address] [id number] [place] [id number] May, Bronchitis J40 [facility] [place] [address] [id number] [place] [id number] Apr, Bronchitis J40 [facility] [address] [facility] [id number] [address] [place] [address] Apr, [facility] [place] [address] [id number] [place] [id number] Mar, [facility] [address] [id number] [id number] Mar, [facility] [place] [address] [id number] [place] [id number] Mar, [facility] [address] [id number] [place] [id number] Mar, [facility] [place] [address] [facility] [id number] [place] [id number] Mar, SOB (shortness of breath) R06.02 [facility] [place] [address] [id number] [place] [id number] Feb, Urinary tract infection, site not specif ied N39.0 and Hematuria, unspecified R31.9 [facility] [place] [address] [id number] [place] [id number] Feb, DM w/o complication type II E11.9 ; Enco unter for immunization Z23 and Chronic airway obstruction, not elsewhere classified J44.9 [facility] [address] [facility] [id number] [place] [id number] Jan, [facility] [id number] LAKE [place] [id number] Jan, [facility] [place] [address] [facility] [id number] [place] [id number] Dec, [facility] [place] [address] [id number] [place] [id number] Dec, [facility] [place] [address] [id number] [place] [id number] Dec, [facility] [place] [address] [facility] [id number] [place] [id number] Dec, [facility] [place] [address] [id number] [place] [id number] Dec, Blood in the stool 578.1 [facility] [place] [address] [id number] [place] [id number] Nov, [facility] [place] [address] [id number] [place] [id number] Nov, Colon cancer screening V76.51 [facility] [place] [address] [id number] [place] [id number] Nov, Vertigo 780.4 [facility] [place] [address] [id number] [place] [id number] Nov, Routine gynecological examination V72.31 ; Pap test, as part of routine gynecological examination V76.2 ; Breast cancer screening V76.10 ; Postmenopausal V49.81 and Colon cancer screening V76.51 [facility] [address] [id number] [place] [id number] Nov, [facility] [address] [id number] [place] [id number] Nov, [facility] [address] [facility] [id number] [address] [place] [address] Nov, [facility] [address] [facility] [id number] [place] [id number] Oct, Diabetes 250.00 ; COPD (chronic obstruct misha pulmonary disease) 496 and GERD (gastroesophageal reflux disease) 530.81 [facility] [address] [place] [id number] [address] [place] [address] Oct, [facility] [address] [id number] [place] [id number] Oct, [facility] [place] [address] [id number] [place] [id number] Oct, [facility] [place] [address] [id number] [place] [id number] Oct, Reflux 530.81 [facility] [address] [place] [id number] [address] [place] [address] Oct, [facility] [place] [address] [id number] [place] [id number] Oct, [facility] [place] [address] [id number] [place] [id number] Oct, [facility] [place] [address] [id number] [place] [id number] Oct, Dysuria 788.1 [facility] [address] [id number] [place] [id number] Oct, Dysuria 788.1 [facility] [address] [place] [id number] [address] [place] [address] September, [facility] [place] [address] [id number] [place] [id number] September, Diabetes 250.00 and COPD (chronic obstru ctive pulmonary disease) 496 [facility] [place] [address] [id number] [place] [id number] September, [facility] [place] [address] [id number] [place] [id number] September, [facility] [address] [id number] [place] [id number] September, [facility] [place] [address] [id number] [place] [id number] Aug, Osteoarthritis 715.90 ; Diabetes 250.00 and COPD (chronic obstructive pulmonary disease) 496 [facility] [place] [address] [facility] [id number] [place] [id number] Aug, Pure hypercholesterolemia 272.0 ; Essent ial hypertension, benign 401.1 and Loss of weight 783.21 [facility] [address] [facility] [id number] [address] [place] [address] Aug, [facility] [address] [facility] [id number] [address] [place] [address] Aug, [facility] [place] [address] [facility] [id number] [place] [id number] Jul, [facility] [address] [facility] [id number] [address] [place] [address] Jul, [facility] [address] [facility] [id number] [address] [place] [address] Jun, [facility] [address] [facility] [id number] [address] [place] [address] Jun, [facility] [place] [address] [facility] [id number] [place] [id number] Jun, [facility] [address] [facility] [id number] [address] [place] [address] May, [facility] [place] [address] [id number] [place] [id number] May, [facility] [place] [address] [id number] [place] [id number] Apr, [facility] [address] [id number] [address] [place] [address], [place] [address] Apr, [facility] [place] [address] [id number] [place] [id number] Apr, [facility] [address] [id number] [address] [place] [address], [place] [address] Apr, [facility] [place] [address] [id number] [place] [id number] Apr, [facility] [address] [facility] [id number] [address] [place] [address], [place] [address] Apr, [facility] [place] [address] [id number] [place] [id number] Feb, [facility] [address] [id number] [address] [place] [address], [place] [address] Feb, [facility] [place] [address] [id number] [place] [id number] Feb, [facility] [address] [facility] [id number] [address] [place] [address] Feb, [facility] [address] [id number] [address] [place] [address], [place] [address] Jan, [facility] [place] [address] [id number] [place] [id number] Jan, [facility] [address] [id number] [address] [place] [address], [place] [address] Jan, [facility] [place] [address] [id number] [place] [id number] Jan, [facility] [address] [facility] [id number] [address] [place] [address], [place] [address] Jan, [facility] [address] [facility] [id number] [address] [place] [address], [place] [address] Dec, [facility] [address] [id number] [address] [place] [address], [place] [address] Dec, [facility] [place] [address] [id number] [place] [id number] September, [facility] [address] [id number] [address] [place] [address], [place] [address] September, [facility] [address] [id number] [address] [place] [address], [place] [address] September, [facility] [place] [address] [id number] [place] [id number] September, [facility] [place] [address] [id number] [place] [id number] September, [facility] [address] [id number] [address] [place] [address], [place] [address] September, [facility] [place] [address] [id number] [place] [id number] Aug, [facility] [address] [id number] [address] [place] [address], [place] [address] Aug, [facility] [address] [id number] [address] [place] [address], [place] [address] Jul, [facility] [place] [address] [id number] [place] [id number] Jul, [facility] [address] [id number] [address] [place] [address], [place] [address] Jul, [facility] [place] [address] [id number] [place] [id number] Jun, [facility] [address] [id number] [address] [place] [address], [place] [address] Jun, [facility] [address] [id number] [address] [place] [address], [place] [address] Jun, [facility] [place] [address] [id number] [place] [id number] Jun, [facility] [place] [address] [id number] [place] [id number] May, [facility] [address] [facility] [id number] [address] [place] [address], [place] [address] May, [facility] [address] [facility] [id number] [address] [place] [address], [place] [address] Apr, [facility] [place] [address] [id number] [place] [id number] Mar, [facility] [address] [id number] [address] [place] [address], [place] [address] Mar, [facility] [address] [facility] [id number] [address] [place] [address], [place] [address] Mar, [facility] [address] [facility] [id number] [address] [place] [address], [place] [address] Mar, [facility] [place] [address] [id number] [place] [id number] Mar, [facility] [place] [address] [id number] [place] [id number] Feb, [facility] [address] [facility] [id number] [address] [place] [address], [place] [address] Feb, [facility] [place] [address] [id number] [place] [id number] Feb, [facility] [address] [id number] [address] [place] [address], [place] [address] Feb, [facility] [place] [address] [id number] [place] [id number] Feb, [facility] [address] [id number] [address] [place] [address], [place] [address] Feb, [facility] [place] [address] [id number] [place] [id number] Jan, [facility] [place] [address] [id number] [place] [id number] Dec, [facility] [place] [address] [id number] [place] [id number] Nov, [facility] [place] [address] [id number] [place] [id number] Oct, [facility] [place] [address] [id number] [place] [id number] Oct, [facility] [place] [address] [id number] [place] [id number] Oct, [facility] [place] [address] [id number] [place] [id number] Oct, [facility] [address] [id number] [address] [place] [address], [place] [address] September, [facility] [place] [address] [id number] [place] [id number] September, [facility] [address] [facility] [id number] [address] [place] [address], [place] [address] Aug, [facility] [place] [address] [id number] [place] [id number] Aug, [facility] [place] [address] [id number] [place] [id number] Jun, [facility] [place] [address] [id number] [place] [id number] Jun, [facility] [place] [address] [id number] [place] [id number] Feb, [facility] [address] [facility] [id number] [address] [place] [address], [place] [id number] Feb, [facility] [address] [id number] [place] [id number] Feb, [facility] [address] [id number] [place] [id number] Dec, [facility] [address] [facility] [id number] [address] [place] [address], [place] [address] Dec, [facility] [address] [id number] [place] [id number] Dec, [facility] [address] [id number] [place] [id number] Aug, [facility] [address] [id number] [place], [place] S [id number] May, [facility] [address] [id number] [place], [place] [id number] May, [facility] [address] [facility] [id number] [address] [place] [id number] Apr, [facility] [address] [facility] [id number] [address] [place] [id number] September, [facility] [address] [facility] [id number] [address] [place] [id number] Apr, [facility] [address] [facility] [id number] [address] [place] [id number] Apr, [facility] [address] [facility] [id number] [address] [place] [id number] Apr, IMMUNIZATIONS No Known Immunizations SOCIAL HISTORY [...]
--- OUTSIDE RECORDS SUMMARY | 2019-10-12 11:21 | XMS REPORT ---
Author Author Zoie DISLA Organization [address] Address [address] [place] [address] Care Team Providers Care Regional Marketing Director Name Role Phone ELLEN DISLA Unavailable PROBLEMS Type Condition ICD9-CM Code CFZ44-GX Code Onset Dates Condition S tatus SNOMED Code Problem Other and unspecified hyperlipidemia E78.5 Active 60213991 Problem Type 2 diabetes mellitus wit h other specified complication, without long-term current use of insulin E11.69 Active 58761039 Problem Chronic airway obstruction, not elsewhere classified J44.9 Active 57894024 Problem CAD (coronary artery disease) I25.10 Active 43316344 ALLERGIES No Information ENCOUNTERS Encounter Location Date Diagnosis [place] [address] [facility] [id number] [address] 30 Jul, [address] [facility] [id number] [place] [address] 19 Jul, 2019 Hospital discharge follow-up Z09 ; Close d nondisplaced fracture of right ischium with routine healing, unspecified fracture morphology, subsequent encounter S32.601D and Peptic ulcer of stomach, unspecified chronicity K25.9 [place] [address] [facility] [id number] [place] [address] Jul, [address] [facility] [address] [id number] [place] [address] Jul, Type 2 diabetes mellitus with other spec ified complication, without long-term current use of insulin E11.[address] [facility] [id number] [place] [address] 14 Jun, 2019 [facility] [address] [facility] [id number] [place] [id number] Apr, Type 2 diabetes mellitus with other spec ified complication, without long-term current use of insulin E11.69 ; Chronic airway obstruction, not elsewhere classified J44.9 and Acute nasopharyngitis J00 [facility] [address] [facility] [id number] [place] [id number] 20 Mar, 2019 Acute nasopharyngitis J00 [facility] [address] [facility] [id number] [place] [id number] 14 Mar, 2019 [facility] [address] [facility] [id number] [place] [id number] 13 Mar, 2019 Acute nasopharyngitis J00 [facility] [address] [facility] [id number] [place] [id number] 06 Mar, 2019 Encounter for immunization Z23 [facility] [address] [facility] [id number] [address] [place] [address] Feb, Type 2 diabetes mellitus wit h other specified complication, without long-term current use of insulin E11.[id number] [id number] Dec, Type 2 diabetes mellitus with other spec ified complication, without long-term current use of insulin E11.69 ; Chronic airway obstruction, not elsewhere classified J44.9 ; CAD (coronary artery disease) I25.10 and Deformity of toe of left foot M20.62 [facility] [id number] [place] [id number] Aug, Bilateral impacted cerumen H61.23 [address] [id number] Aug, Bilateral impacted cerumen H61.23 ; CAD (coronary artery disease) I25.10 and Other and unspecified hyperlipidemia E78.5 [facility] [address] [facility] [id number] [place] [id number] Jun, Encounter for Medicare annual wellness e xam Z00.00 ; Type 2 diabetes mellitus with other specified complication, without long-term current use of insulin E11.69 ; Chronic airway obstruction, not elsewhere classified J44.9 ; CAD (coronary artery disease) I25.10 ; Other and unspecified hyperlipidemia E78.5 and Breast cancer screening Z12.31 [facility] [address] [id number] [place] [id number] 11 Jun, 2018 DM w/o complication type II E11.9 ; 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, 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 ; CAD (coronary artery disease) I25.10 and Vertigo R42 [facility] [place] [address] [id number] [place] [id number] Feb, Encounter for immunization Z23 [facility] [place] [address] [id number] [place] [id number] Jan, DM w/o complication type II E11.9 and Ch ronic airway obstruction, not elsewhere classified J44.9 [facility] [place] [address] [id number] [place] [id number] Dec, CAD (coronary artery disease) I25.10 [facility] [place] [address] [id number] [place] [id number] Oct, DM w/o complication type II E11.9 ; 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, 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 and CAD (coronary artery disease) I25.10 [facility] [place] [address] [id number] [place] [id number] Jul, DM w/o complication type II E11.9 ; 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, 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.9 and Infective urethritis N34.2 [facility] [place] [address] [id number] [place] [id number] Jun, Syncope and collapse R55 [facility] [place] [address] [id number] [place] [id number] Jun, [facility] [place] [address] [id number] [place] [id number] May, Bronchitis J40 [facility] [place] [address] [id number] [place] [id number] May, [facility] [place] [address] [id number] [place] [id number] May, [facility] [place] [address] [id number] [place] [id number] Apr, DM w/o complication type II E11.9 [facility] [place] [address] [id number] [place] [id number] Mar, DM w/o complication type II E11.9 ; 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, 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 ; Dysuria R30.0 ; Tinea pedis of right foot B35.3 and Encounter for immunization Z23 [facility] [place] [address] [id number] [place] [id number] Feb, Medicare welcome exam Z00.00 [facility] [place] [address] [id number] [place] [id number] Jan, Chronic airway obstruction, not elsewher e classified J44.9 [facility] [place] [address] [id number] [place] [id number] Dec, [facility] [place] [address] [id number] [place] [id number] Dec, DM w/o complication type II E11.9 ; 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, 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.9 and Acute cystitis with hematuria N30.01 [facility] [place] [address] [id number] [place] [id number] Oct, Encounter for screening for malignant ne oplasm of colon Z12.11 [facility] [place] [address] [id number] [place] [id number] Oct, Medicare welcome exam Z00.00 [facility] [place] [address] [id number] [place] [id number] September, Medicare welcome exam Z00.00 and Encount er for immunization Z23 [facility] [place] [address] [id number] [place] [id number] September, Bronchitis J40 [facility] [place] [address] [id number] [place] [id number] September, Bronchitis J40 [facility] [place] [address] [id number] [place] [id number] September, Other and unspecified hyperlipidemia E78 .5 [facility] [place] [address] [id number] [place] [id number] Aug, DM w/o complication type II E11.9 ; 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, 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 and Other and unspecified hyperlipidemia E78.5 [facility] [place] [address] [id number] [place] [id number] May, DM w/o complication type II E11.9 and Ch ronic airway obstruction, not elsewhere classified J44.9 [facility] [place] [address] [id number] [place] [id number] Apr, Acute cystitis with hematuria N30.01 [facility] [place] [address] [id number] [place] [id number] Feb, DM w/o complication type II E11.9 [facility] [place] [address] [id number] [place] [id number] Feb, Chronic airway obstruction, not elsewher e classified J44.9 ; DM w/o complication type II E11.9 and Encounter for immunization Z23 [facility] [place] [address] [id number] [place] [id number] Dec, [facility] [place] [address] [id number] [place] [id number] Nov, Chronic airway obstruction, not elsewher e classified J44.9 [facility] [place] [address] [facility] [id number] [place] [id number] Oct, DM w/o complication type II E11.9 [facility] [address] [facility] [id number] [place] [address] Oct, [facility] [place] [address] [id number] [place] [id number] Aug, Chronic airway obstruction, not elsewher e classified J44.9 and DM w/o complication type II E11.9 [facility] [place] [address] [id number] [place] [id number] Aug, Chronic airway obstruction, not elsewher e classified J44.9 [facility] [place] [address] [id number] [place] [id number] Aug, DM w/o complication type II E11.9 and Ch ronic airway obstruction, not elsewhere classified J44.9 [facility] [place] [address] [id number] [place] [id number] Jul, [facility] [place] [address] [id number] [place] [id number] Jul, DM w/o complication type II E11.9 [facility] [place] [address] [id number] [place] [id number] Jun, [facility] [place] [address] [id number] [place] [id number] Jun, [facility] [place] [address] [id number] [place] [id number] Jun, Chronic airway obstruction, not elsewher e classified J44.9 ; DM w/o complication type II E11.9 and Other and unspecified hyperlipidemia E78.5 [facility] [place] [address] [id number] [place] [id number] Jun, CAD (coronary artery disease) I25.10 and Dizziness R42 [facility] [place] [address] [id number] [place] [id number] Jun, Bronchitis J40 [facility] [place] [address] [id number] [place] [id number] May, Hematoma T14.8 [facility] [place] [address] [id number] [place] [id number] May, [facility] [place] [address] [id number] [place] [id number] May, Bronchitis J40 [facility] [place] [address] [id number] [place] [id number] Apr, Bronchitis J40 [facility] [address] [facility] [id number] [address] [address] Apr, [facility] [place] [address] [id number] [place] [id number] Mar, [facility] [address] [id number] [id number] Mar, [facility] [place] [address] [id number] [place] [id number] Mar, [facility] [facility] [address] [id number] [id number] Mar, [facility] [place] [address] [facility] [id number] [place] [id number] Mar, SOB (shortness of breath) R06.02 [facility] [place] [address] [id number] [place] [id number] Feb, Urinary tract infection, site not specif ied N39.0 and Hematuria, unspecified R31.9 [facility] [place] [address] [id number] [place] [id number] Feb, DM w/o complication type II E11.9 ; Enco unter for immunization Z23 and Chronic airway obstruction, not elsewhere classified J44.9 [facility] [address] [facility] [id number] [id number] Jan, [facility] [id number], [place] [id number] Jan, [facility] [place] [address] [facility] [id number] [place] [id number] Dec, [facility] [place] [address] [id number] [place] [id number] Dec, [facility] [place] [address] [id number] [place] [id number] Dec, [facility] [place] [address] [facility] [id number] [place] [id number] Dec, [facility] [place] [address] [id number] [place] [id number] Dec, Blood in the stool 578.1 [facility] [place] [address] [id number] [place] [id number] Nov, [facility] [place] [address] [id number] [place] [id number] Nov, Colon cancer screening V76.51 [facility] [place] [address] [id number] [place] [id number] Nov, Vertigo 780.4 [facility] [place] [address] [id number] [place] [id number] Nov, Routine gynecological examination V72.31 ; Pap test, as part of routine gynecological examination V76.2 ; Breast cancer screening V76.10 ; Postmenopausal V49.81 and Colon cancer screening V76.51 [facility] [address] [id number] [place] [id number] Nov, [facility] [address] [id number] [place] [id number] Nov, [facility] [address] [facility] [id number] [address] [place] [address] Nov, [facility] [address] [facility] [id number] [place] [id number] Oct, Diabetes 250.00 ; COPD (chronic obstruct misha pulmonary disease) 496 and GERD (gastroesophageal reflux disease) 530.81 [facility] [address] [place] [id number] [address] [place] [address] Oct, [facility] [address] [id number] [place] [id number] Oct, [facility] [place] [address] [id number] [place] [id number] Oct, [facility] [place] [address] [id number] [place] [id number] Oct, Reflux 530.81 [facility] [address] [place] [id number] [address] [place] [address] Oct, [facility] [place] [address] [id number] [place] [id number] Oct, [facility] [place] [address] [id number] [place] [id number] Oct, [facility] [place] [address] [id number] [place] [id number] Oct, Dysuria 788.1 [facility] [address] [id number] [place] [id number] Oct, Dysuria 788.1 [facility] [address] [place] [id number] [address] [place] [address] September, [facility] [place] [address] [id number] [place] [id number] September, Diabetes 250.00 and COPD (chronic obstru ctive pulmonary disease) 496 [facility] [place] [address] [id number] [place] [id number] September, [facility] [place] [address] [id number] [place] [id number] September, [facility] [address] [id number] [place] [id number] September, [facility] [place] [address] [id number] [place] [id number] Aug, Osteoarthritis 715.90 ; Diabetes 250.00 and COPD (chronic obstructive pulmonary disease) 496 [facility] [place] [address] [facility] [id number] [place] [id number] Aug, Pure hypercholesterolemia 272.0 ; Essent ial hypertension, benign 401.1 and Loss of weight 783.21 [facility] [address] [facility] [id number] [address] [place] [address] Aug, [facility] [address] [facility] [id number] [address] [place] [address] Aug, [facility] [place] [address] [facility] [id number] [place] [id number] Jul, [facility] [address] [facility] [id number] [address] [place] [address] Jul, [facility] [address] [facility] [id number] [address] [place] [address] Jun, [facility] [address] [facility] [id number] [address] [place] [address] Jun, [facility] [place] [address] [facility] [id number] [place] [id number] Jun, [facility] [address] [facility] [id number] [address] [place] [address] May, [facility] [place] [address] [id number] [place] [id number] May, [facility] [place] [address] [id number] [place] [id number] Apr, [facility] [address] [id number] [address] [place] [address], [place] [address] Apr, [facility] [place] [address] [id number] [place] [id number] Apr, [facility] [address] [id number] [address] [place] [address], [place] [address] Apr, [facility] [place] [address] [id number] [place] [id number] Apr, [facility] [address] [facility] [id number] [address] [place] [address], [place] [address] Apr, [facility] [place] [address] [id number] [place] [id number] Feb, [facility] [address] [id number] [address] [place] [address], [place] [address] Feb, [facility] [place] [address] [id number] [place] [id number] Feb, [facility] [address] [facility] [id number] [address] [place] [address] Feb, [facility] [address] [id number] [address] [place] [address], [place] [address] Jan, [facility] [place] [address] [id number] [place] [id number] Jan, [facility] [address] [id number] [address] [place] [address], [place] [address] Jan, [facility] [place] [address] [id number] [place] [id number] Jan, [facility] [address] [facility] [id number] [address] [place] [address], [place] [address] Jan, [facility] [address] [facility] [id number] [address] [place] [address], [place] [address] Dec, [facility] [address] [id number] [address] [place] [address], [place] [address] Dec, [facility] [place] [address] [id number] [place] [id number] September, [facility] [address] [id number] [address] [place] [address], [place] [address] September, [facility] [address] [id number] [address] [place] [address], [place] [address] September, [facility] [place] [address] [id number] [place] [id number] September, [facility] [place] [address] [id number] [place] [id number] September, [facility] [address] [id number] [address] [place] [address], [place] [address] September, [facility] [place] [address] [id number] [place] [id number] Aug, [facility] [address] [id number] [address] [place] [address], [place] [address] Aug, [facility] [address] [id number] [address] [place] [address], [place] [address] Jul, [facility] [place] [address] [id number] [place] [id number] Jul, [facility] [address] [id number] [address] [place] [address], [place] [address] Jul, [facility] [place] [address] [id number] [place] [id number] Jun, [facility] [address] [id number] [address] [place] [address], [place] [address] Jun, [facility] [address] [id number] [address] [place] [address], [place] [address] Jun, [facility] [place] [address] [id number] [place] [id number] Jun, [facility] [place] [address] [id number] [place] [id number] May, [facility] [address] [facility] [id number] [address] [place] [address], [place] [address] May, [facility] [address] [facility] [id number] [address] [place] [address], [place] [address] Apr, [facility] [place] [address] [id number] [place] [id number] Mar, [facility] [address] [id number] [address] [place] [address], [place] [address] Mar, [facility] [address] [facility] [id number] [address] [place] [address], [place] [address] Mar, [facility] [address] [facility] [id number] [address] [place] [address], [place] [address] Mar, [facility] [place] [address] [id number] [place] [id number] Mar, [facility] [place] [address] [id number] [place] [id number] Feb, [facility] [address] [facility] [id number] [address] [place] [address], [place] [address] Feb, [facility] [place] [address] [id number] [place] [id number] Feb, [facility] [address] [id number] [address] [place] [address], [place] [address] Feb, [facility] [place] [address] [id number] [place] [id number] Feb, [facility] [address] [id number] [address] [place] [address], [place] [address] Feb, [facility] [place] [address] [id number] [place] [id number] Jan, [facility] [place] [address] [id number] [place] [id number] Dec, [facility] [place] [address] [id number] [place] [id number] Nov, [facility] [place] [address] [id number] [place] [id number] Oct, [facility] [place] [address] [id number] [place] [id number] Oct, [facility] [place] [address] [id number] [place] [id number] Oct, [facility] [place] [address] [id number] [place] [id number] Oct, [facility] [address] [id number] [address] [place] [address], [place] [address] September, [facility] [place] [address] [id number] [place] [id number] September, [facility] [address] [facility] [id number] [address] [place] [address], [place] [address] Aug, [facility] [address] [id number] [place] [id number] Aug, [facility] [address] [id number] [place] [id number] Jun, [facility] [address] [id number] [place] [id number] Jun, [facility] [address] [id number] [place] [id number] Feb, [facility] [address] [facility] [id number] [address] [place] [address], [place] [address] Feb, [facility] [address] [id number] [place] [id number] Feb, [facility] [address] [id number] [place] [id number] Dec, [facility] [address] [facility] [id number] [address] [place] [address], [place] [address] Dec, [facility] [address] [id number] [place] [id number] Dec, [facility] [address] [id number] [place] [id number] Aug, [facility] [address] [facility] [id number] [place], [place] S [id number] May, [facility] [address] [facility] [id number] [place], S [id number] May, [facility] [address] [facility] [id number] [address] [place] [id number] Apr, [facility] [address] [facility] [id number] [address] [place] [id number] September, [facility] [address] [facility] [id number] [address] [place] [id number] Apr, [facility] [address] [facility] [id number] [address] [place] [phone] Apr, [facility] [address] [facility] [id number] [address] [place] [id number] Apr, IMMUNIZATIONS No Known Immunizations SOCIAL HISTORY [...]
--- OUTSIDE RECORDS SUMMARY | 2019-10-12 11:21 | XMS REPORT ---
Author Author Zoie DISLA Organization [address] Address [address] [place] [address] Care Team Providers Care Crib Attendant Name Role Phone ELLEN DISLA Unavailable PROBLEMS Type Condition ICD9-CM Code PNS78-XY Code Onset Dates Condition S tatus SNOMED Code Problem Other and unspecified hyperlipidemia E78.5 Active 43060656 Problem Type 2 diabetes mellitus wit h other specified complication, without long-term current use of insulin E11.69 Active 53604745 Problem Chronic airway obstruction, not elsewhere classified J44.9 Active 60842527 Problem CAD (coronary artery disease) I25.10 Active 14169113 ALLERGIES No Information ENCOUNTERS Encounter Location Date Diagnosis [place] [address] [facility] [id number], [place] [address] 30 Jul, [address] [facility] [id number], [place] [address] 19 Jul, 2019 Hospital discharge follow-up Z09 ; Close d nondisplaced fracture of right ischium with routine healing, unspecified fracture morphology, subsequent encounter S32.601D and Peptic ulcer of stomach, unspecified chronicity K25.9 [place] [address] [facility] [id number] [place] [address] Jul, [address] [facility] [address] [id number], [place] [address] Jul, Type 2 diabetes mellitus with other spec ified complication, without long-term current use of insulin E11.[address] [facility] [id number] [place] [address] 14 Jun, 2019 [facility] [address] [facility] [id number] [place] [id number] Apr, Type 2 diabetes mellitus with other spec ified complication, without long-term current use of insulin E11.69 ; Chronic airway obstruction, not elsewhere classified J44.9 and Acute nasopharyngitis J00 [facility] [address] [facility] [id number] [place] [id number] 20 Mar, 2019 Acute nasopharyngitis J00 [facility] [address] [facility] [id number] [place] [id number] 14 Mar, 2019 [facility] [address] [facility] [id number] [place] [id number] 13 Mar, 2019 Acute nasopharyngitis J00 [facility] [address] [facility] [id number] [place] [id number] 06 Mar, 2019 Encounter for immunization Z23 [facility] [address] [facility] [id number] [address] [place] [address] Feb, Type 2 diabetes mellitus wit h other specified complication, without long-term current use of insulin E11.69 [address] [id number] Dec, Type 2 diabetes mellitus with other spec ified complication, without long-term current use of insulin E11.69 ; Chronic airway obstruction, not elsewhere classified J44.9 ; CAD (coronary artery disease) I25.10 and Deformity of toe of left foot M20.62 [facility] [id number] [place] [id number] Aug, Bilateral impacted cerumen H61.23 [address] [id number] Aug, Bilateral impacted cerumen H61.23 ; CAD (coronary artery disease) I25.10 and Other and unspecified hyperlipidemia E78.5 [facility] [address] [facility] [id number] [place] [id number] Jun, Encounter for Medicare annual wellness e xam Z00.00 ; Type 2 diabetes mellitus with other specified complication, without long-term current use of insulin E11.69 ; Chronic airway obstruction, not elsewhere classified J44.9 ; CAD (coronary artery disease) I25.10 ; Other and unspecified hyperlipidemia E78.5 and Breast cancer screening Z12.31 [facility] [address] [id number] [place] [id number] 11 Jun, 2018 DM w/o complication type II E11.9 ; Otolaryngology Physician ravi airway obstruction, not elsewhere classified J44.9 ; CAD (coronary artery disease) I25.10 and Vertigo R42 [facility] [place] [address] [id number] [place] [id number] Feb, Encounter for immunization Z23 [facility] [place] [address] [id number] [place] [id number] Jan, DM w/o complication type II E11.9 and Ch ronic airway obstruction, not elsewhere classified J44.9 [facility] [place] [address] [id number] [place] [id number] Dec, CAD (coronary artery disease) I25.10 [facility] [place] [address] [id number] [place] [id number] Oct, DM w/o complication type II E11.9 ; Otolaryngology Physician ravi airway obstruction, not elsewhere classified J44.9 and CAD (coronary artery disease) I25.10 [facility] [place] [address] [id number] [place] [id number] Jul, DM w/o complication type II E11.9 ; Otolaryngology Physician ravi airway obstruction, not elsewhere classified J44.9 and Infective urethritis N34.2 [facility] [place] [address] [id number] [place] [id number] Jun, Syncope and collapse R55 [facility] [place] [address] [id number] [place] [id number] Jun, [facility] [place] [address] [id number] [place] [id number] May, Bronchitis J40 [facility] [place] [address] [id number] [place] [id number] May, [facility] [place] [address] [id number] [place] [id number] May, [facility] [place] [address] [id number] [place] [id number] Apr, DM w/o complication type II E11.9 [facility] [place] [address] [id number] [place] [id number] Mar, DM w/o complication type II E11.9 ; Otolaryngology Physician ravi airway obstruction, not elsewhere classified J44.9 ; Dysuria R30.0 ; Tinea pedis of right foot B35.3 and Encounter for immunization Z23 [facility] [place] [address] [id number] [place] [id number] Feb, Medicare welcome exam Z00.00 [facility] [place] [address] [id number] [place] [id number] Jan, Chronic airway obstruction, not elsewher e classified J44.9 [facility] [place] [address] [id number] [place] [id number] Dec, [facility] [place] [address] [id number] [place] [id number] Dec, DM w/o complication type II E11.9 ; Otolaryngology Physician ravi airway obstruction, not elsewhere classified J44.9 and Acute cystitis with hematuria N30.01 [facility] [place] [address] [id number] [place] [id number] Oct, Encounter for screening for malignant ne oplasm of colon Z12.11 [facility] [place] [address] [id number] [place] [id number] Oct, Medicare welcome exam Z00.00 [facility] [place] [address] [id number] [place] [id number] September, Medicare welcome exam Z00.00 and Encount er for immunization Z23 [facility] [place] [address] [id number] [place] [id number] September, Bronchitis J40 [facility] [place] [address] [id number] [place] [id number] September, Bronchitis J40 [facility] [place] [address] [id number] [place] [id number] September, Other and unspecified hyperlipidemia E78 .5 [facility] [place] [address] [id number] [place] [id number] Aug, DM w/o complication type II E11.9 ; Otolaryngology Physician ravi airway obstruction, not elsewhere classified J44.9 and Other and unspecified hyperlipidemia E78.5 [facility] [place] [address] [id number] [place] [id number] May, DM w/o complication type II E11.9 and Ch ronic airway obstruction, not elsewhere classified J44.9 [facility] [place] [address] [id number] [place] [id number] Apr, Acute cystitis with hematuria N30.01 [facility] [place] [address] [id number] [place] [id number] Feb, DM w/o complication type II E11.9 [facility] [place] [address] [id number] [place] [id number] Feb, Chronic airway obstruction, not elsewher e classified J44.9 ; DM w/o complication type II E11.9 and Encounter for immunization Z23 [facility] [place] [address] [id number] [place] [id number] Dec, [facility] [place] [address] [id number] [place] [id number] Nov, Chronic airway obstruction, not elsewher e classified J44.9 [facility] [place] [address] [facility] [id number] [place] [id number] Oct, DM w/o complication type II E11.9 [facility] [address] [facility] [id number] 100[address] [place] [address] Oct, [facility] [place] [address] [id number] [place] [id number] Aug, Chronic airway obstruction, not elsewher e classified J44.9 and DM w/o complication type II E11.9 [facility] [place] [address] [id number] [place] [id number] Aug, Chronic airway obstruction, not elsewher e classified J44.9 [facility] [place] [address] [id number] [place] [id number] Aug, DM w/o complication type II E11.9 and Ch ronic airway obstruction, not elsewhere classified J44.9 [facility] [place] [address] [id number] [place] [id number] Jul, [facility] [place] [address] [id number] [place] [id number] Jul, DM w/o complication type II E11.9 [facility] [place] [address] [id number] [place] [id number] Jun, [facility] [place] [address] [id number] [place] [id number] Jun, [facility] [place] [address] [id number] [place] [id number] Jun, Chronic airway obstruction, not elsewher e classified J44.9 ; DM w/o complication type II E11.9 and Other and unspecified hyperlipidemia E78.5 [facility] [place] [address] [id number] [place] [id number] Jun, CAD (coronary artery disease) I25.10 and Dizziness R42 [facility] [place] [address] [id number] [place] [id number] Jun, Bronchitis J40 [facility] [place] [address] [id number] [place] [id number] May, Hematoma T14.8 [facility] [place] [address] [id number] [place] [id number] May, [facility] [place] [address] [id number] [place] [id number] May, Bronchitis J40 [facility] [place] [address] [id number] [place] [id number] Apr, Bronchitis J40 [facility] [address] [facility] [id number] [address] [place] [address] Apr, [facility] [place] [address] [id number] [place] [id number] Mar, [facility] [address] [id number] [id number] Mar, [facility] [place] [address] [id number] [place] [id number] Mar, [facility] [id number] [id number] Mar, [facility] [place] [address] [facility] [id number] [place] [id number] Mar, SOB (shortness of breath) R06.02 [facility] [place] [address] [id number] [place] [id number] Feb, Urinary tract infection, site not specif ied N39.0 and Hematuria, unspecified R31.9 [facility] [place] [address] [id number] [place] [id number] Feb, DM w/o complication type II E11.9 ; Enco unter for immunization Z23 and Chronic airway obstruction, not elsewhere classified J44.9 [facility] [address] [facility] [id number] [place] [id number] Jan, [facility] [id number] [place] [id number] Jan, [facility] [place] [address] [facility] [id number] [place] [id number] Dec, [facility] [place] [address] [id number] [place] [id number] Dec, [facility] [place] [address] [id number] [place] [id number] Dec, [facility] [place] [address] [facility] [id number] [place] [id number] Dec, [facility] [place] [address] [id number] [place] [id number] Dec, Blood in the stool 578.1 [facility] [place] [address] [id number] [place] [id number] Nov, [facility] [place] [address] [id number] [place] [id number] Nov, Colon cancer screening V76.51 [facility] [place] [address] [id number] [place] [id number] Nov, Vertigo 780.4 [facility] [place] [address] [id number] [place] [id number] Nov, Routine gynecological examination V72.31 ; Pap test, as part of routine gynecological examination V76.2 ; Breast cancer screening V76.10 ; Postmenopausal V49.81 and Colon cancer screening V76.51 [facility] [address] [id number] [place] [id number] Nov, [facility] [address] [id number] [place] [id number] Nov, [facility] [address] [facility] [id number] [address] [place] [address] Nov, [facility] [address] [facility] [id number] [place] [id number] Oct, Diabetes 250.00 ; COPD (chronic obstruct misha pulmonary disease) 496 and GERD (gastroesophageal reflux disease) 530.81 [facility] [address] [place] [id number] [address] [place] [address] Oct, [facility] [address] [id number] [place] [id number] Oct, [facility] [place] [address] [id number] [place] [id number] Oct, [facility] [place] [address] [id number] [place] [id number] Oct, Reflux 530.81 [facility] [address] [place] [id number] [address] [place] [address] Oct, [facility] [place] [address] [id number] [place] [id number] Oct, [facility] [place] [address] [id number] [place] [id number] Oct, [facility] [place] [address] [id number] [place] [id number] Oct, Dysuria 788.1 [facility] [address] [id number] [place] [id number] Oct, Dysuria 788.1 [facility] [address] [place] [id number] [address] [place] [address] September, [facility] [place] [address] [id number] [place] [id number] September, Diabetes 250.00 and COPD (chronic obstru ctive pulmonary disease) 496 [facility] [place] [address] [id number] [place] [id number] September, [facility] [place] [address] [id number] [place] [id number] September, [facility] [address] [id number] [place] [id number] September, [facility] [place] [address] [id number] [place] [id number] Aug, Osteoarthritis 715.90 ; Diabetes 250.00 and COPD (chronic obstructive pulmonary disease) 496 [facility] [place] [address] [facility] [id number] [place] [id number] Aug, Pure hypercholesterolemia 272.0 ; Essent ial hypertension, benign 401.1 and Loss of weight 783.21 [facility] [address] [facility] [id number] [address] [place] [address] Aug, [facility] [address] [facility] [id number] [address] [place] [address] Aug, [facility] [place] [address] [facility] [id number] [place] [id number] Jul, [facility] [address] [facility] [id number] [address] [place] [address] Jul, [facility] [address] [facility] [id number] [address] [place] [address] Jun, [facility] [address] [facility] [id number] [address] [place] [address] Jun, [facility] [place] [address] [facility] [id number] [place] [id number] Jun, [facility] [address] [facility] [id number] [address] [place] [address] May, [facility] [place] [address] [id number] [place] [id number] May, [facility] [place] [address] [id number] [place] [id number] Apr, [facility] [address] [id number] [address] [place] [address], [place] [address] Apr, [facility] [place] [address] [id number] [place] [id number] Apr, [facility] [address] [id number] [address] [place] [address], [place] [address] Apr, [facility] [place] [address] [id number] [place] [id number] Apr, [facility] [address] [facility] [id number] [address] [place] [address], [place] [address] Apr, [facility] [place] [address] [id number] [place] [id number] Feb, [facility] [address] [id number] [address] [place] [address], [place] [address] Feb, [facility] [place] [address] [id number] [place] [id number] Feb, [facility] [address] [facility] [id number] [address] [place] [address] Feb, [facility] [address] [id number] [address] [place] [address], [place] [address] Jan, [facility] [place] [address] [id number] [place] [id number] Jan, [facility] [address] [id number] [address] [place] [address], [place] [address] Jan, [facility] [place] [address] [id number] [place] [id number] Jan, [facility] [address] [facility] [id number] [address] [place] [address], [place] [address] Jan, [facility] [address] [facility] [id number] [address] [place] [address], [place] [address] Dec, [facility] [address] [id number] [address] [place] [address], [place] [address] Dec, [facility] [place] [address] [id number] [place] [id number] September, [facility] [address] [id number] [address] [place] [address], [place] [address] September, [facility] [address] [id number] [address] [place] [address], [place] [address] September, [facility] [place] [address] [id number] [place] [id number] September, [facility] [place] [address] [id number] [place] [id number] September, [facility] [address] [id number] [address] [place] [address], [place] [address] September, [facility] [place] [address] [id number] [place] [id number] Aug, [facility] [address] [id number] [address] [place] [address], [place] [address] Aug, [facility] [address] [id number] [address] [place] [address], [place] [address] Jul, [facility] [place] [address] [id number] [place] [id number] Jul, [facility] [address] [id number] [address] [place] [address], [place] [address] Jul, [facility] [place] [address] [id number] [place] [id number] Jun, [facility] [address] [id number] [address] [place] [address], [place] [address] Jun, [facility] [address] [id number] [address] [place] [address], [place] [address] Jun, [facility] [place] [address] [id number] [place] [id number] Jun, [facility] [place] [address] [id number] [place] [id number] May, [facility] [address] [facility] [id number] [address] [place] [address], [place] [address] May, [facility] [address] [facility] [id number] [address] [place] [address], [place] [address] Apr, [facility] [place] [address] [id number] [place] [id number] Mar, [facility] [address] [id number] [address] [place] [address], [place] [address] Mar, [facility] [address] [facility] [id number] [address] [place] [address], [place] [address] Mar, [facility] [address] [facility] [id number] [address] [place] [address], [place] [address] Mar, [facility] [place] [address] [id number] [place] [id number] Mar, [facility] [place] [address] [id number] [place] [id number] Feb, [facility] [address] [facility] [id number] [address] [place] [address], [place] [address] Feb, [facility] [place] [address] [id number] [place] [id number] Feb, [facility] [address] [id number] [address] [place] [address], [place] [address] Feb, [facility] [place] [address] [id number] [place] [id number] Feb, [facility] [address] [id number] [address] [place] [address], [place] [address] Feb, [facility] [place] [address] [id number] [place] [id number] Jan, [facility] [place] [address] [id number] [place] [id number] Dec, [facility] [place] [address] [id number] [place] [id number] Nov, [facility] [place] [address] [id number] [place] [id number] Oct, [facility] [place] [address] [id number] [place] [id number] Oct, [facility] [place] [address] [id number] [place] [id number] Oct, [facility] [place] [address] [id number] [place] [id number] Oct, [facility] [address] [id number] [address] [place] [address], [place] [address] September, [facility] [place] [address] [id number] [place] [id number] September, [facility] [address] [facility] [id number] [address] [place] [address], [place] [address] Aug, [facility] [place] [address] [id number] [place] [id number] Aug, [facility] [address] [id number] [place] [id number] Jun, [facility] [address] [id number] [place] [id number] Jun, [facility] [address] [id number] [place] [id number] Feb, [facility] [address] [facility] [id number] [address] [place] [address], [place] [id number] Feb, [facility] [address] [id number] [place] [id number] Feb, [facility] [address] [id number] [place] [id number] Dec, [facility] [address] [facility] [id number] [address] [place] [address], [place] [id number] Dec, [facility] [address] [id number] [place] [id number] Dec, [facility] [address] [id number] [place] [id number] Aug, [facility] [address] [facility] [id number] [place], [place] S [id number] May, [facility] [address] [facility] [id number] [place], [place] [id number] May, [facility] [address] [facility] [id number] [address] [place] [id number] Apr, [facility] [address] [facility] [id number] [address] [place] [id number] September, [facility] [address] [facility] [id number] [address] [place] [id number] Apr, [facility] [address] [facility] [id number] [address] [place] [id number] Apr, [facility] [address] [facility] [id number] [address] [place] [id number] Apr, IMMUNIZATIONS No Known Immunizations SOCIAL HISTORY [...]
--- OUTSIDE RECORDS SUMMARY | 2019-10-12 11:21 | XMS REPORT ---
Author Author Zoie DISLA Organization [address] Address [address] [place] [address] Care Team Providers Care Design Transferrer Name Role Phone ELLEN DISLA Unavailable PROBLEMS Type Condition ICD9-CM Code LRK36-FF Code Onset Dates Condition S tatus SNOMED Code Problem Other and unspecified hyperlipidemia E78.5 Active 87775469 Problem Type 2 diabetes mellitus wit h other specified complication, without long-term current use of insulin E11.69 Active 26229003 Problem Chronic airway obstruction, not elsewhere classified J44.9 Active 02875774 Problem CAD (coronary artery disease) I25.10 Active 98343136 ALLERGIES No Information ENCOUNTERS Encounter Location Date Diagnosis [place] [address] [facility] [id number], [place] [address] 30 Jul, [address] [facility] [id number], [place] [address] Jul, Hospital discharge follow-up Z09 ; Close d nondisplaced fracture of right ischium with routine healing, unspecified fracture morphology, subsequent encounter S32.601D and Peptic ulcer of stomach, unspecified chronicity K25.9 [place] [address] [facility] [id number] [place] [address] Jul, [address] [facility] [address] [id number], [place] [address] Jul, Type 2 diabetes mellitus with other spec ified complication, without long-term current use of insulin E11.[address] [facility] [id number] [place] [address] 14 Jun, 2019 [facility] [address] [facility] [id number] [place] [id number] Apr, Type 2 diabetes mellitus with other spec ified complication, without long-term current use of insulin E11.69 ; Chronic airway obstruction, not elsewhere classified J44.9 and Acute nasopharyngitis J00 [facility] [address] [facility] [id number] [place] [id number] 20 Mar, 2019 Acute nasopharyngitis J00 [facility] [address] [facility] [id number] [place] [id number] 14 Mar, 2019 [facility] [address] [facility] [id number] [place] [id number] 13 Mar, 2019 Acute nasopharyngitis J00 [facility] [address] [facility] [id number] [place] [id number] 06 Mar, 2019 Encounter for immunization Z23 [facility] [address] [facility] [id number] [address] [place] [address] Feb, Type 2 diabetes mellitus wit h other specified complication, without long-term current use of insulin E11.69 [address] [id number] Dec, Type 2 diabetes mellitus with other spec ified complication, without long-term current use of insulin E11.69 ; Chronic airway obstruction, not elsewhere classified J44.9 ; CAD (coronary artery disease) I25.10 and Deformity of toe of left foot M20.62 [facility] [id number] [place] [id number] Aug, Bilateral impacted cerumen H61.23 [address] [id number] Aug, Bilateral impacted cerumen H61.23 ; CAD (coronary artery disease) I25.10 and Other and unspecified hyperlipidemia E78.5 [facility] [address] [facility] [id number] [place] [id number] Jun, Encounter for Medicare annual wellness e xam Z00.00 ; Type 2 diabetes mellitus with other specified complication, without long-term current use of insulin E11.69 ; Chronic airway obstruction, not elsewhere classified J44.9 ; CAD (coronary artery disease) I25.10 ; Other and unspecified hyperlipidemia E78.5 and Breast cancer screening Z12.31 [facility] [address] [id number] [place] [id number] 11 Jun, 2018 DM w/o complication type II E11.9 ; 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, 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 ; CAD (coronary artery disease) I25.10 and Vertigo R42 [facility] [place] [address] [id number] [place] [id number] Feb, Encounter for immunization Z23 [facility] [place] [address] [id number] [place] [id number] Jan, DM w/o complication type II E11.9 and Ch ronic airway obstruction, not elsewhere classified J44.9 [facility] [place] [address] [id number] [place] [id number] Dec, CAD (coronary artery disease) I25.10 [facility] [place] [address] [id number] [place] [id number] Oct, DM w/o complication type II E11.9 ; 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 [place] [address] [id number] [place] [id number] Jun, Syncope and collapse R55 [facility] [place] [address] [id number] [place] [id number] Jun, [facility] [place] [address] [id number] [place] [id number] May, Bronchitis J40 [facility] [place] [address] [id number] [place] [id number] May, [facility] [place] [address] [id number] [place] [id number] May, [facility] [place] [address] [id number] [place] [id number] Apr, DM w/o complication type II E11.9 [facility] [place] [address] [id number] [place] [id number] Mar, DM w/o complication type II E11.9 ; 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, not elsewhere 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 J44.9 ; Dysuria R30.0 ; Tinea pedis of right foot B35.3 and Encounter for immunization Z23 [facility] [place] [address] [id number] [place] [id number] Feb, Medicare welcome exam Z00.00 [facility] [place] [address] [id number] [place] [id number] Jan, Chronic airway obstruction, not elsewher e classified J44.9 [facility] [place] [address] [id number] [place] [id number] Dec, [facility] [place] [address] [id number] [place] [id number] Dec, DM w/o complication type II E11.9 ; 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, not 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 J44.9 and Other and unspecified hyperlipidemia E78.5 [facility] [place] [address] [id number] [place] [id number] May, DM w/o complication type II E11.9 and Ch ronic airway obstruction, not elsewhere classified J44.9 [facility] [place] [address] [id number] [place] [id number] Apr, Acute cystitis with hematuria N30.01 [facility] [place] [address] [id number] [place] [id number] Feb, DM w/o complication type II E11.9 [facility] [place] [address] [id number] [place] [id number] Feb, Chronic airway obstruction, not elsewher e classified J44.9 ; DM w/o complication type II E11.9 and Encounter for immunization Z23 [facility] [place] [address] [id number] [place] [id number] Dec, [facility] [place] [address] [id number] [place] [id number] Nov, Chronic airway obstruction, not elsewher e classified J44.9 [facility] [place] [address] [facility] [id number] [place] [id number] Oct, DM w/o complication type II E11.9 [facility] [address] [facility] [id number] [address] [place] [address] Oct, [facility] [place] [address] [id number] [place] [id number] Aug, Chronic airway obstruction, not elsewher e classified J44.9 and DM w/o complication type II E11.9 [facility] [place] [address] [id number] [place] [id number] Aug, Chronic airway obstruction, not elsewher e classified J44.9 [facility] [place] [address] [id number] [place] [id number] Aug, DM w/o complication type II E11.9 and Ch ronic airway obstruction, not elsewhere classified J44.9 [facility] [place] [address] [id number] [place] [id number] Jul, [facility] [place] [address] [id number] [place] [id number] Jul, DM w/o complication type II E11.9 [facility] [place] [address] [id number] [place] [id number] Jun, [facility] [place] [address] [id number] [place] [id number] Jun, [facility] [place] [address] [id number] [place] [id number] Jun, Chronic airway obstruction, not elsewher e classified J44.9 ; DM w/o complication type II E11.9 and Other and unspecified hyperlipidemia E78.5 [facility] [place] [address] [id number] [place] [id number] Jun, CAD (coronary artery disease) I25.10 and Dizziness R42 [facility] [place] [address] [id number] [place] [id number] Jun, Bronchitis J40 [facility] [place] [address] [id number] [place] [id number] May, Hematoma T14.8 [facility] [place] [address] [id number] [place] [id number] May, [facility] [place] [address] [id number] [place] [id number] May, Bronchitis J40 [facility] [place] [address] [id number] [place] [id number] Apr, Bronchitis J40 [facility] [address] [facility] [id number] [address] [place] [address] Apr, [facility] [place] [address] [id number] [place] [id number] Mar, [facility] [address] [address] [id number] [id number] Mar, [facility] [place] [address] [id number] [place] [id number] Mar, [facility] [address] [id number] [id number] Mar, [facility] [place] [address] [facility] [id number] [place] [id number] Mar, SOB (shortness of breath) R06.02 [facility] [place] [address] [id number] [place] [id number] Feb, Urinary tract infection, site not specif ied N39.0 and Hematuria, unspecified R31.9 [facility] [place] [address] [id number] [place] [id number] Feb, DM w/o complication type II E11.9 ; Enco unter for immunization Z23 and Chronic airway obstruction, not elsewhere classified J44.9 [facility] [address] [facility] [id number] [id number] Jan, [facility] [id number][place] [id number] Jan, [facility] [place] [address] [facility] [id number] [place] [id number] Dec, [facility] [place] [address] [id number] [place] [id number] Dec, [facility] [place] [address] [id number] [place] [id number] Dec, [facility] [place] [address] [facility] [id number] [place] [id number] Dec, [facility] [place] [address] [id number] [place] [id number] Dec, Blood in the stool 578.1 [facility] [place] [address] [id number] [place] [id number] Nov, [facility] [place] [address] [id number] [place] [id number] Nov, Colon cancer screening V76.51 [facility] [place] [address] [id number] [place] [id number] Nov, Vertigo 780.4 [facility] [place] [address] [id number] [place] [id number] Nov, Routine gynecological examination V72.31 ; Pap test, as part of routine gynecological examination V76.2 ; Breast cancer screening V76.10 ; Postmenopausal V49.81 and Colon cancer screening V76.51 [facility] [address] [id number] [place] [id number] Nov, [facility] [address] [id number] [place] [id number] Nov, [facility] [address] [facility] [id number] [address] [place] [address] Nov, [facility] [address] [facility] [id number] [place] [id number] Oct, Diabetes 250.00 ; COPD (chronic obstruct misha pulmonary disease) 496 and GERD (gastroesophageal reflux disease) 530.81 [facility] [address] [place] [id number] [address] [place] [address] Oct, [facility] [address] [id number] [place] [id number] Oct, [facility] [place] [address] [id number] [place] [id number] Oct, [facility] [place] [address] [id number] [place] [id number] Oct, Reflux 530.81 [facility] [address] [place] [id number] [address] [place] [address] Oct, [facility] [place] [address] [id number] [place] [id number] Oct, [facility] [place] [address] [id number] [place] [id number] Oct, [facility] [place] [address] [id number] [place] [id number] Oct, Dysuria 788.1 [facility] [address] [id number] [place] [id number] Oct, Dysuria 788.1 [facility] [address] [place] [id number] [address] [place] [address] September, [facility] [place] [address] [id number] [place] [id number] September, Diabetes 250.00 and COPD (chronic obstru ctive pulmonary disease) 496 [facility] [place] [address] [id number] [place] [id number] September, [facility] [place] [address] [id number] [place] [id number] September, [facility] [address] [id number] [place] [id number] September, [facility] [place] [address] [id number] [place] [id number] Aug, Osteoarthritis 715.90 ; Diabetes 250.00 and COPD (chronic obstructive pulmonary disease) 496 [facility] [place] [address] [facility] [id number] [place] [id number] Aug, Pure hypercholesterolemia 272.0 ; Essent ial hypertension, benign 401.1 and Loss of weight 783.21 [facility] [address] [facility] [id number] [address] [place] [address] Aug, [facility] [address] [facility] [id number] [address] [place] [address] Aug, [facility] [place] [address] [facility] [id number] [place] [id number] Jul, [facility] [address] [facility] [id number] [address] [place] [address] Jul, [facility] [address] [facility] [id number] [address] [place] [address] Jun, [facility] [address] [facility] [id number] [address] [place] [address] Jun, [facility] [place] [address] [facility] [id number] [place] [id number] Jun, [facility] [address] [facility] [id number] [address] [place] [address] May, [facility] [place] [address] [id number] [place] [id number] May, [facility] [place] [address] [id number] [place] [id number] Apr, [facility] [address] [id number] [address] [place] [address], [place] [address] Apr, [facility] [place] [address] [id number] [place] [id number] Apr, [facility] [address] [id number] [address] [place] [address], [place] [address] Apr, [facility] [place] [address] [id number] [place] [id number] Apr, [facility] [address] [facility] [id number] [address] [place] [address], [place] [address] Apr, [facility] [place] [address] [id number] [place] [id number] Feb, [facility] [address] [id number] [address] [place] [address], [place] [address] Feb, [facility] [place] [address] [id number] [place] [id number] Feb, [facility] [address] [facility] [id number] [address] [place] [address] Feb, [facility] [address] [id number] [address] [place] [address], [place] [address] Jan, [facility] [place] [address] [id number] [place] [id number] Jan, [facility] [address] [id number] [address] [place] [address], [place] [address] Jan, [facility] [place] [address] [id number] [place] [id number] Jan, [facility] [address] [facility] [id number] [address] [place] [address], [place] [address] Jan, [facility] [address] [facility] [id number] [address] [place] [address], [place] [address] Dec, [facility] [address] [id number] [address] [place] [address], [place] [address] Dec, [facility] [place] [address] [id number] [place] [id number] September, [facility] [address] [id number] [address] [place] [address], [place] [address] September, [facility] [address] [id number] [address] [place] [address], [place] [address] September, [facility] [place] [address] [id number] [place] [id number] September, [facility] [place] [address] [id number] [place] [id number] September, [facility] [address] [id number] [address] [place] [address], [place] [address] September, [facility] [place] [address] [id number] [place] [id number] Aug, [facility] [address] [id number] [address] [place] [address], [place] [address] Aug, [facility] [address] [id number] [address] [place] [address], [place] [address] Jul, [facility] [place] [address] [id number] [place] [id number] Jul, [facility] [address] [id number] [address] [place] [address], [place] [address] Jul, [facility] [place] [address] [id number] [place] [id number] Jun, [facility] [address] [id number] [address] [place] [address], [place] [address] Jun, [facility] [address] [id number] [address] [place] [address], [place] [address] Jun, [facility] [place] [address] [id number] [place] [id number] Jun, [facility] [place] [address] [id number] [place] [id number] May, [facility] [address] [facility] [id number] [address] [place] [address], [place] [address] May, [facility] [address] [facility] [id number] [address] [place] [address], [place] [address] Apr, [facility] [place] [address] [id number] [place] [id number] Mar, [facility] [address] [id number] [address] [place] [address], [place] [address] Mar, [facility] [address] [facility] [id number] [address] [place] [address], [place] [address] Mar, [facility] [address] [facility] [id number] [address] [place] [address], [place] [address] Mar, [facility] [place] [address] [id number] [place] [id number] Mar, [facility] [place] [address] [id number] [place] [id number] Feb, [facility] [address] [facility] [id number] [address] [place] [address], [place] [address] Feb, [facility] [place] [address] [id number] [place] [id number] Feb, [facility] [address] [id number] [address] [place] [address], [place] [address] Feb, [facility] [place] [address] [id number] [place] [id number] Feb, [facility] [address] [id number] [address] [place] [address], [place] [address] Feb, [facility] [place] [address] [id number] [place] [id number] Jan, [facility] [place] [address] [id number] [place] [id number] Dec, [facility] [place] [address] [id number] [place] [id number] Nov, [facility] [place] [address] [id number] [place] [id number] Oct, [facility] [place] [address] [id number] [place] [id number] Oct, [facility] [place] [address] [id number] [place] [id number] Oct, [facility] [place] [address] [id number] [place] [id number] Oct, [facility] [address] [id number] [address] [place] [address], [place] [address] September, [facility] [place] [address] [id number] [place] [id number] September, [facility] [address] [facility] [id number] [address] [place] [address], [place] [address] Aug, [facility] [place] [address] [id number] [place] [id number] Aug, [facility] [place] [address] [id number] [place] [id number] Jun, [facility] [place] [address] [id number] [place] [id number] Jun, [facility] [place] [address] [id number] [place] [id number] Feb, [facility] [address] [facility] [id number] [address] [place] [address], [place] [address] Feb, [facility] [place] [address] [id number] [place] [id number] Feb, [facility] [place] [address] [id number] [place] [id number] Dec, [facility] [address] [facility] [id number] [address] [place] [address], [place] [id number] Dec, [facility] [address] [id number] [place] [id number] Dec, [facility] [address] [id number] [place] [id number] Aug, [facility] [address] [facility] [id number] [place], [place] S [id number] May, [facility] [address] [facility] [id number] [place], S [id number] May, [facility] [address] [facility] [id number] [address] [place] [id number] Apr, [facility] [address] [facility] [id number] [address] [place] [id number] September, [facility] [address] [facility] [id number] [address] [place] [id number] Apr, [facility] [address] [facility] [id number] [address] [place] [id number] Apr, [facility] [address] [facility] [id number] [address] [place] [id number] Apr, IMMUNIZATIONS No Known Immunizations SOCIAL HISTORY [...]
--- OUTSIDE RECORDS SUMMARY | 2019-10-12 11:22 | XMS REPORT ---
Author Author Zoie DISLA Organization [address] Address [address] [place] [address] Care Team Providers Care Grizzly Worker Name Role Phone ELLEN DISLA Unavailable PROBLEMS Type Condition ICD9-CM Code HDQ20-SE Code Onset Dates Condition S tatus SNOMED Code Problem Other and unspecified hyperlipidemia E78.5 Active 48982028 Problem Type 2 diabetes mellitus wit h other specified complication, without long-term current use of insulin E11.69 Active 47732304 Problem Chronic airway obstruction, not elsewhere classified J44.9 Active 76453355 Problem CAD (coronary artery disease) I25.10 Active 57381005 ALLERGIES No Information ENCOUNTERS Encounter Location Date Diagnosis [address] [address] 1 9 Jul, 2019 Hospital discharge follow-up Z09 ; Closed nondisplaced fracture of right ischium with routine healing, unspecified fracture morphology, subsequent encounter S32.601D and Peptic ulcer of stomach, unspecified chronicity K25.[address] [address] 1 1 Jul, [address] [address] 0 4 Jul, 2019 Type 2 diabetes mellitus with other specified complication, without long-term current use of insulin E11.[address] [address] 1 4 Jun, [address] [id number] 02 Apr, 2019 Type 2 diabetes mellitus with other specified complication, without long-term current use of insulin E11.69 ; Chronic airway obstruction, not elsewhere classified J44.9 and Acute nasopharyngitis J00 [facility] [address] [facility] [place] [id number] Mar, Acute nasopharyngitis J00 [address] [id number] 14 Mar, [address] [id number] 13 Mar, 2019 Acute nasopharyngitis J00 [address] [id number] 06 Mar, 2019 Encounter for immunization Z23 [facility] [address] [id number] [address] Feb, Type 2 diabetes mellitus with other spec ified complication, without long-term current use of insulin E11.[address] [id number] Dec, Type 2 diabetes mellitus with other specified complication, without long-term current use of insulin E11.69 ; Chronic airway obstruction, not elsewhere classified J44.9 ; CAD (coronary artery disease) I25.10 and Deformity of toe of left foot M20.[address] [id number] Aug, Bilateral impacted cerumen H61.[address] [id number] Aug, Bilateral impacted cerumen H61.23 ; CAD (coronary artery disease) I25.10 and Other and unspecified hyperlipidemia E78.[address] [id number] 19 Jun, 2018 Encounter for Medicare annual wellness exam Z00.00 ; Type 2 diabetes mellitus with other specified complication, without long-term current use of insulin E11.69 ; Chronic airway obstruction, not elsewhere classified J44.9 ; CAD (coronary artery disease) I25.10 ; Other and unspecified hyperlipidemia E78.5 and Breast cancer screening Z12.[address] [id number] 11 Jun, 2018 DM w/o complication type II E11.9 ; Chronic airway obstruction, not elsewhere classified J44.9 ; CAD (coronary artery disease) I25.10 and Vertigo R42 [address] [id number] Feb, Encounter for immunization Z23 [address] [id number] Jan, DM w/o complication type II E11.9 and Chronic airway obstruction, not elsewhere classified J44.[address] [id number] Dec, CAD (coronary artery disease) I25.[address] [id number] Oct, DM w/o complication type II E11.9 ; Chronic airway obstruction, not elsewhere classified J44.9 and CAD (coronary artery disease) I25.[address] [id number] Jul, DM w/o complication type II E11.9 ; Chronic airway obstruction, not elsewhere classified J44.9 and Infective urethritis N34.[address] [id number] Jun, Syncope and collapse R55 [address] [id number] Jun, [address] [id number] May, Bronchitis J40 [address] [id number] May, [address] [id number] May, [address] [id number] Apr, DM w/o complication type II E11.[address] [id number] Mar, DM w/o complication type II E11.9 ; Chronic airway obstruction, not elsewhere classified J44.9 ; Dysuria R30.0 ; Tinea pedis of right foot B35.3 and Encounter for immunization Z23 [address] [id number] Feb, Medicare [place] exam Z00.[address] [place] [id number] Jan, Chronic airway obstruction, not elsewhere classified J44.[address] [id number] Dec, [address] [id number] Dec, DM w/o complication type II E11.9 ; Chronic airway obstruction, not elsewhere classified J44.9 and Acute cystitis with hematuria N30.[address] [id number] Oct, Encounter for screening for malignant neoplasm of colon Z12.[address] [id number] Oct, Medicare welcome exam Z00.[address] [id number] September, Medicare welcome exam Z00.00 and Encounter for immunization Z23 [address] [id number] September, Bronchitis J40 [place] [id number] [place] [id number] September, Bronchitis J40 [address] [id number] September, Other and unspecified hyperlipidemia E78.[address] [id number] Aug, DM w/o complication type II E11.9 ; Chronic airway obstruction, not elsewhere classified J44.9 and Other and unspecified hyperlipidemia E78.[address] [id number] May, DM w/o complication type II E11.9 and Chronic airway obstruction, not elsewhere classified J44.[address] [id number] Apr, Acute cystitis with hematuria N30.[address] [id number] Feb, DM w/o complication type II E11.9 [place] [id number] [place] [address] [id number] Feb, Chronic airway obstruction, not elsewhere classified J44.9 ; DM w/o complication type II E11.9 and Encounter for immunization Z23 [facility] [place] [address], [place] [id number] Dec, [address] [id number] Nov, Chronic airway obstruction, not elsewhere classified J44.[address] [id number] Oct, DM w/o complication type II E11.9 [facility] [address] [facility] [address] Oct, [address] [id number] Aug, Chronic airway obstruction, not elsewhere classified J44.9 and DM w/o complication type II E11.[address] [id number] Aug, Chronic airway obstruction, not elsewhere classified J44.[address] [id number] Aug, DM w/o complication type II E11.9 and Chronic airway obstruction, not elsewhere classified J44.[address] [id number] Jul, [address] [id number] Jul, DM w/o complication type II E11.[address] [id number] Jun, [address] [id number] Jun, [address] [id number] Jun, Chronic airway obstruction, not elsewhere classified J44.9 ; DM w/o complication type II E11.9 and Other and unspecified hyperlipidemia E78.[address] [id number] Jun, CAD (coronary artery disease) I25.10 and Dizziness R42 [place] [id number] [place] [address] [id number] 10 Jun, 2015 Bronchitis J40 [address] [id number] May, Hematoma T14.[address] [id number] May, [address] [id number] May, Bronchitis J40 [address] [id number] Apr, Bronchitis J40 [facility] [address] [facility] [id number] Apr, [address] [id number] Mar, [address] [facility] [id number] Mar, [address] [id number] Mar, [facility] [address] [facility] [address] [id number] Mar, [address] [id number] Mar, SOB (shortness of breath) R06.[address] [id number] Feb, Urinary tract infection, site not specified N39.0 and Hematuria, unspecified R31.[address] [id number] Feb, DM w/o complication type II E11.9 ; Encounter for immunization Z23 and Chronic airway obstruction, not elsewhere classified J44.9 [place] [address] [facility] [id number] [facility] [place] [id number] Jan, [place] [address] [place] [id number] [place] [id number] Jan, [place] [id number] [place] [address] [id number] Dec, [address] [id number] Dec, [address] [id number] Dec, [address] [id number] Dec, [address] [id number] Dec, Blood in the stool 578.[address] [id number] Nov, [address] [id number] Nov, Colon cancer screening V76.[address] [id number] Nov, Vertigo 780.[address] [id number] Nov, Routine gynecological examination V72.31 ; Pap test, as part of routine gynecological examination V76.2 ; Breast cancer screening V76.10 ; Postmenopausal V49.81 and Colon cancer screening V76.[address] [id number] Nov, [address] [id number] Nov, [place] [address] [place] [id number] Nov, [address] [id number] Oct, Diabetes 250.00 ; COPD (chronic obstructive pulmonary disease) 496 and GERD (gastroesophageal reflux disease) 530.81 [place] [address] [address] Oct, [address] [id number] Oct, [facility] [address] [id number] Oct, [facility] [place] [id number] [place] [address] [id number] Oct, Reflux 530.81 [facility] [address] [place] [id number] [address] Oct, [facility] [place] [id number] [place] [address] [id number] Oct, [facility] [address] [id number] Oct, [facility] [address] [id number] Oct, Dysuria 788.1 [facility] [address] [id number] Oct, Dysuria 788.1 [facility] [address] [place] 8686270 [address] September, [place] [id number] [place] [address] [id number] September, Diabetes 250.00 and COPD (chronic obstructive pulmonary disease) [address] [place] [id number] [place] [address] [id number] September, [place] [id number] [place] [address] [id number] September, [address] [id number] September, [address] [id number] Aug, Osteoarthritis 715.90 ; Diabetes 250.00 and COPD (chronic obstructive pulmonary disease) [address] [place] [address] [id number] Aug, Pure hypercholesterolemia 272.0 ; Essential hypertension, benign 401.1 and Loss of weight 783.21 [facility] [address] [place] [id number] Aug, [facility] [address] [place] [id number] Aug, [facility] [place] [address] [place] [id number] [id number] Jul, [facility] [address] [place] [id number] Jul, [facility] [address] [facility] [id number] Jun, [facility] [address] [place] [id number] Jun, [facility] [place] [address] [place] [id number] [id number] Jun, [facility] [address] [place] [id number] [place] [address] May, [facility] [place] [address] [place] [id number] [id number] May, [facility] [place] [address] [place] [id number] Apr, [facility] [address] [place] [id number] Apr, [facility] [place] [address] [place] [id number] Apr, [facility] [address] [place] [id number] [id number] Apr, [facility] [place] [address] [place] [place] [id number] Apr, [facility] [address] [place] [id number] [address] Apr, [facility] [place] [address] [place] [id number] Feb, [facility] [address] [place] [id number] [id number] Feb, [facility] [place] [address] [place] [place] [id number] Feb, [facility] [address] [place] [id number] Feb, [facility] [address] [id number] [place] [address] Jan, [facility] [place] [address] [facility] [id number] Jan, [facility] [address] [id number] [place] [address] Jan, [facility] [place] [address] [facility] [id number] Jan, [facility] [address] [id number] [place] [address] Jan, [facility] [address] [facility] [id number] [place] [address] Dec, [facility] [address] [facility] [id number] [place] [address] Dec, [facility] [place] [address] [place] [id number] [id number] September, [facility] [address] [id number] [place] [address] September, [facility] [address] [id number] [place] [address] September, [facility] [place] [address] [place] [id number] [id number] September, [facility] [place] [address] [facility] [id number] September, [facility] [address] [id number] [address] September, [facility] [place] [address] [facility] [id number] Aug, [facility] [address] [id number] [place] [address] Aug, [facility] [address] [id number] [place] [address] Jul, [facility] [place] [address] [facility] [id number] Jul, [facility] [address] [id number] [place] [address] Jul, [facility] [address] [facility], [place] [id number] Jun, [facility] [address] [place] [id number] [address] Jun, [facility] [address] [facility] [id number] [address] Jun, [facility] [address] [place], [place] [id number] Jun, [facility] [address] [place] [id number] May, [facility] [address] [place] [id number] [address] May, [facility] [address] [place] [id number] [address] Apr, [facility] [address] [place], [place] [id number] Mar, [facility] [address] [place] [id number] [address] Mar, [facility] [address] [place] [id number] [address] Mar, [facility] [address] [place] [id number] [address] Mar, [facility] [address] [place], [place] [id number] Mar, [facility] [address] [place], [place] [id number] Feb, [facility] [address] [place] [id number] Feb, [facility] [address] [place] [id number] Feb, [facility] [address] [place] [id number] Feb, [facility] [address] [place], [place] [id number] Feb, [facility] [address] [place] 8686270 [id number] Feb, [facility] [place] [address] [place] [id number] [id number] Jan, [facility] [place] [address] [place] [id number] [place] [address], [place] [id number] Dec, [facility] [place] [address] [place] [id number] [place] [address], [place] [id number] Nov, [facility] [place] [address] [place] [id number] [place] [address], [place] [id number] Oct, [facility] [place] [address] [place] [id number] [place] [address], [place] [id number] Oct, [facility] [place] [address] [place] [id number] [place] [address], [place] [id number] Oct, [facility] [place] [address] [place] [id number] [place] [address], [place] [id number] Oct, [facility] [address] [place] [id number] [id number] September, [facility] [place] [address], [place] [id number] September, [facility] [address] [place] [id number] [id number] Aug, [facility] [place] [address] [place] [id number] [place] [address], [place] [id number] Aug, [facility] [place] [address] [place] [id number] [place] [address], [place] [id number] Jun, [facility] [place] [address], [place] [id number] Jun, [facility] [place] [address] [place] [id number] [place] [address], [place] [id number] Feb, [facility] [place] [facility] [address] [place] 8686270 [id number] Feb, [facility] [place] [address] [place] [id number] [place] [address] [id number] Feb, [facility] [place] [address] [place] [id number] [place] [address], [place] [id number] Dec, [facility] [address] [address] Dec, [facility] [address] [facility] [place] [id number] Dec, [facility] [address] [facility] [place] [id number] Aug, [facility] [address] [facility] [id number] May, [facility] [address] [facility] [place] [id number] May, [facility] [address] [place] 8686270 [id number] Apr, [facility] [address] [address] September, [facility] [address] [place] 8686270 [id number] Apr, [facility] [address] [place] 8686270 [address] Apr, [facility] [address] [place] 8686270 [address] Apr, IMMUNIZATIONS No Known Immunizations SOCIAL HISTORY [...]
--- OUTSIDE RECORDS SUMMARY | 2019-10-12 11:22 | XMS REPORT ---
Author Author Zoie DISLA Organization [address] Address [address] [place] [address] Care Team Providers Care Transit Man Name Role Phone ELLEN DISLA Unavailable PROBLEMS Type Condition ICD9-CM Code WLG35-MA Code Onset Dates Condition S tatus SNOMED Code Problem Other and unspecified hyperlipidemia E78.5 Active 36868433 Problem Type 2 diabetes mellitus wit h other specified complication, without long-term current use of insulin E11.69 Active 36392447 Problem Chronic airway obstruction, not elsewhere classified J44.9 Active 06046224 Problem CAD (coronary artery disease) I25.10 Active 91783447 ALLERGIES No Information ENCOUNTERS Encounter Location Date Diagnosis [address] [address] 1 9 Jul, 2019 Hospital discharge follow-up Z09 ; Closed nondisplaced fracture of right ischium with routine healing, unspecified fracture morphology, subsequent encounter S32.601D and Peptic ulcer of stomach, unspecified chronicity K25.[address] [address] 1 1 Jul, [address] [address] 0 4 Jul, 2019 Type 2 diabetes mellitus with other specified complication, without long-term current use of insulin E11.[address] [address] 1 4 Jun, [address] [id number] 02 Apr, 2019 Type 2 diabetes mellitus with other specified complication, without long-term current use of insulin E11.69 ; Chronic airway obstruction, not elsewhere classified J44.9 and Acute nasopharyngitis J00 [facility] [address] [place] [id number] Mar, Acute nasopharyngitis J00 [address] [id number] 14 Mar, [address] [id number] 13 Mar, 2019 Acute nasopharyngitis J00 [address] [id number] 06 Mar, 2019 Encounter for immunization Z23 [facility] [address] [facility] [place] [address] Feb, Type 2 diabetes mellitus with other spec ified complication, without long-term current use of insulin E11.[address] [id number] Dec, Type 2 diabetes mellitus with other specified complication, without long-term current use of insulin E11.69 ; Chronic airway obstruction, not elsewhere classified J44.9 ; CAD (coronary artery disease) I25.10 and Deformity of toe of left foot M20.[address] [id number] Aug, Bilateral impacted cerumen H61.[address] [id number] Aug, Bilateral impacted cerumen H61.23 ; CAD (coronary artery disease) I25.10 and Other and unspecified hyperlipidemia E78.[address] [id number] 19 Jun, 2018 Encounter for Medicare annual wellness exam Z00.00 ; Type 2 diabetes mellitus with other specified complication, without long-term current use of insulin E11.69 ; Chronic airway obstruction, not elsewhere classified J44.9 ; CAD (coronary artery disease) I25.10 ; Other and unspecified hyperlipidemia E78.5 and Breast cancer screening Z12.[address] [id number] 11 Jun, 2018 DM w/o complication type II E11.9 ; Chronic airway obstruction, not elsewhere classified J44.9 ; CAD (coronary artery disease) I25.10 and Vertigo R42 [address] [id number] Feb, Encounter for immunization Z23 [address] [id number] Jan, DM w/o complication type II E11.9 and Chronic airway obstruction, not elsewhere classified J44.[address] [id number] Dec, CAD (coronary artery disease) I25.[address] [id number] Oct, DM w/o complication type II E11.9 ; Chronic airway obstruction, not elsewhere classified J44.9 and CAD (coronary artery disease) I25.[address] [id number] Jul, DM w/o complication type II E11.9 ; Chronic airway obstruction, not elsewhere classified J44.9 and Infective urethritis N34.[address] [id number] Jun, Syncope and collapse R55 [address] [id number] Jun, [address] [id number] May, Bronchitis J40 [address] [id number] May, [address] [id number] May, [address] [id number] Apr, DM w/o complication type II E11.[address] [id number] Mar, DM w/o complication type II E11.9 ; Chronic airway obstruction, not elsewhere classified J44.9 ; Dysuria R30.0 ; Tinea pedis of right foot B35.3 and Encounter for immunization Z23 [address] [id number] Feb, Medicare [place] exam Z00.[address] [place] [address] Jan, Chronic airway obstruction, not elsewhere classified J44.[address] [id number] Dec, [address] [id number] Dec, DM w/o complication type II E11.9 ; Chronic airway obstruction, not elsewhere classified J44.9 and Acute cystitis with hematuria N30.[address] [id number] Oct, Encounter for screening for malignant neoplasm of colon Z12.[address] [id number] Oct, Medicare welcome exam Z00.[address] [id number] September, Medicare welcome exam Z00.00 and Encounter for immunization Z23 [address] [id number] September, Bronchitis J40 [place] [id number] [place] [id number] September, Bronchitis J40 [address] [id number] September, Other and unspecified hyperlipidemia E78.[address] [id number] Aug, DM w/o complication type II E11.9 ; Chronic airway obstruction, not elsewhere classified J44.9 and Other and unspecified hyperlipidemia E78.[address] [id number] May, DM w/o complication type II E11.9 and Chronic airway obstruction, not elsewhere classified J44.[address] [id number] Apr, Acute cystitis with hematuria N30.[address] [id number] Feb, DM w/o complication type II E11.9 [place] [id number] [place] [address] [id number] Feb, Chronic airway obstruction, not elsewhere classified J44.9 ; DM w/o complication type II E11.9 and Encounter for immunization Z23 [facility] [address], [place] [id number] Dec, [address] [id number] Nov, Chronic airway obstruction, not elsewhere classified J44.[address] [id number] Oct, DM w/o complication type II E11.9 [facility] [address] [facility] [place] [address] Oct, [address] [id number] Aug, Chronic airway obstruction, not elsewhere classified J44.9 and DM w/o complication type II E11.[address] [id number] Aug, Chronic airway obstruction, not elsewhere classified J44.[address] [id number] Aug, DM w/o complication type II E11.9 and Chronic airway obstruction, not elsewhere classified J44.[address] [id number] Jul, [address] [id number] Jul, DM w/o complication type II E11.[address] [id number] Jun, [address] [id number] Jun, [address] [id number] Jun, Chronic airway obstruction, not elsewhere classified J44.9 ; DM w/o complication type II E11.9 and Other and unspecified hyperlipidemia E78.[address] [id number] Jun, CAD (coronary artery disease) I25.10 and Dizziness R42 [place] [id number] [place] [address] [id number] 10 Jun, 2015 Bronchitis J40 [address] [id number] May, Hematoma T14.[address] [id number] May, [address] [id number] May, Bronchitis J40 [address] [id number] Apr, Bronchitis J40 [facility] [address] [facility] [place] [address] Apr, [address] [id number] Mar, [address] [facility] [id number] Mar, [address] [id number] Mar, [facility] [address] [facility] [address] [address] [id number] Mar, [address] [id number] Mar, SOB (shortness of breath) R06.[address] [id number] Feb, Urinary tract infection, site not specified N39.0 and Hematuria, unspecified R31.[address] [id number] Feb, DM w/o complication type II E11.9 ; Encounter for immunization Z23 and Chronic airway obstruction, not elsewhere classified J44.9 [place] [address] [facility] [id number] [facility] [place] [id number] Jan, [place] [address] [place] [id number] [address] [place] [id number] Jan, [place] [id number] [place] [address] [id number] Dec, [address] [id number] Dec, [address] [id number] Dec, [address] [id number] Dec, [address] [id number] Dec, Blood in the stool 578.[address] [id number] Nov, [address] [id number] Nov, Colon cancer screening V76.[address] [id number] Nov, Vertigo 780.[address] [id number] Nov, Routine gynecological examination V72.31 ; Pap test, as part of routine gynecological examination V76.2 ; Breast cancer screening V76.10 ; Postmenopausal V49.81 and Colon cancer screening V76.[address] [id number] Nov, [address] [id number] Nov, [place] [address] [place] [id number] [place] [address] Nov, [address] [id number] Oct, Diabetes 250.00 ; COPD (chronic obstructive pulmonary disease) 496 and GERD (gastroesophageal reflux disease) 530.81 [place] [address] [address] Oct, [address] [id number] Oct, [facility] [address] [id number] Oct, [facility] [place] [id number] [place] [address] [id number] Oct, Reflux 530.81 [facility] [address] [id number] [place] [address] Oct, [facility] [place] [id number] [place] [address] [id number] Oct, [facility] [address] [id number] Oct, [facility] [address] [id number] Oct, Dysuria 788.1 [facility] [address] [id number] Oct, Dysuria 788.1 [facility] [address] [place] [address] [id number] [place] [address] September, [place] [id number] [place] [address] [id number] September, Diabetes 250.00 and COPD (chronic obstructive pulmonary disease) [address] [place] [id number] [place] [address] [id number] September, [place] [id number] [place] [address] [id number] September, [address] [address] September, [address] [id number] Aug, Osteoarthritis 715.90 ; Diabetes 250.00 and COPD (chronic obstructive pulmonary disease) [address] [place] [address] [id number] Aug, Pure hypercholesterolemia 272.0 ; Essential hypertension, benign 401.1 and Loss of weight 783.21 [facility] [address] [address] [place] [address] Aug, [facility] [address] [place] [id number] [place] [address] Aug, [facility] [place] [id number] [place] [id number] Jul, [facility] [id number] [place] [address] Jul, [facility] [address] [facility] [place] [address] Jun, [facility] [id number] [place] [address] Jun, [facility] [place] [id number] [id number] Jun, [facility] [address] [id number] [place] [address] May, [facility] [place] [id number] [id number] May, [facility] [address] [address] [id number] [id number] Apr, [facility] [id number] [place] [address] Apr, [facility] [place] [address] [id number] [id number] Apr, [facility] [id number] [place] [address] Apr, [facility] [place] [id number] [id number] Apr, [facility] [address] [place] [id number] [place] [address] Apr, [facility] [place] [address] [address] [id number] [id number] Feb, [facility] [id number] [place] [address] Feb, [facility] [place] [address] [id number] Feb, [facility] [id number] [place] [address] Feb, [facility] [address] [id number] [place] [address] Jan, [facility] [place] [address] [facility] [id number] Jan, [facility] [address] [id number] [place] [address] Jan, [facility] [place] [address] [facility] [id number] Jan, [facility] [address] [facility] [place] [address] Jan, [facility] [address] [facility] [place] [address] Dec, [facility] [address] [facility] [place] [address] Dec, [facility] [place] [address] [id number] [id number] September, [facility] [address] [facility] [place] [address] September, [facility] [address] [facility] [place] [address] September, [facility] [place] [address] [id number] [id number] September, [facility] [place] [address] [facility] [id number] September, [facility] [address] [id number] [place] [address] September, [facility] [place] [address] [facility] [id number] Aug, [facility] [address] [facility] [place] [address] Aug, [facility] [address] [id number] [place] [address] Jul, [facility] [place] [address] [facility] [id number] Jul, [facility] [address] [facility] [place] [address] Jul, [facility] [address] [facility]07[address] [id number] Jun, [facility] [id number] [place] [address] Jun, [facility] [address] [id number] [place] [address] Jun, [facility] [address] [id number] [id number] Jun, [facility] [address] [id number] [id number] May, [facility] [address] [place] [id number] [place] [address] May, [facility] [address] [id number] [place] [address] Apr, [facility] [address] [id number] [address] Mar, [facility] [id number] [place] [address] Mar, [facility] [id number] [place] [address] Mar, [facility] [address] [id number] [place] [address] Mar, [facility] [address] [id number] [id number] Mar, [facility] [address] [id number] [id number] Feb, [facility] [address] [place] [id number] [place] [address] Feb, [facility] [id number] [id number] Feb, [facility] [address] [place] [id number] [place] [address] Feb, [facility] [address] [id number] [id number] Feb, [facility] [id number] [place] [address] Feb, [facility] [place] [address] [place] [id number] [address] Jan, [facility] [id number] [place] [address], [place] [id number] Dec, [facility] [place] [address] [id number] [place] [address], [place] [id number] Nov, [facility] [place] [address] [id number] [place] [address], [place] [id number] Oct, [facility] [place] [address] [id number] [place] [address], [place] [id number] Oct, [facility] [place] [id number] [place] [address], [place] [id number] Oct, [facility] [place] [id number] [place] [address], [place] [id number] Oct, [facility] [id number] [place] [address] September, [facility] [place] [address], [place] [id number] September, [facility] [address] [place] [id number] [place] [address] Aug, [facility] [place] [address] [place] [id number] [place] [address], [place] [id number] Aug, [facility] [place] [address] [id number] [place] [address], [place] [id number] Jun, [facility] [address], [place] [id number] Jun, [facility] [id number] [place] [address], [place] [id number] Feb, [facility] [id number] [place] [address] Feb, [facility] [place] [id number] [place] [address] [id number] Feb, [facility] [id number] [place] [address], [place] [id number] Dec, [facility] [address] [address] Dec, [facility] [address] [place] [address] Dec, [facility] [address] [id number] Aug, [facility] [address] [place] [id number] May, [facility] [address] [place] [address] May, [facility] [address] [place] [id number] [place] [address] Apr, [facility] [id number] [place] [address] September, [facility] [id number] [place] [address] Apr, [facility] [id number] [place] [address] Apr, [facility] [id number] [place] [address] Apr, IMMUNIZATIONS No Known Immunizations SOCIAL HISTORY Never Assessed REASON FOR VISIT PLAN OF CARE VITAL SIGNS Height 66 in 2013-06-07 Weight 137.38 lbs 2013-06-07 Temperature 97.1 degrees Fahrenheit 2013-06-07 Heart Rate 76 bpm 2013-06-07 Respiratory Rate 20 2013-06-07 Blood pressure systolic 128 mmHg 2013-06-07 Blood pressure diastolic 78 mmHg 2013-06-07 MEDICATIONS No Known Medications RESULTS No Results [...]
--- OUTSIDE RECORDS SUMMARY | 2019-10-12 11:27 | XMS REPORT | Continuity of Care Document ---
Author Organization Unknown Address Unknown Phone Unavailable Allergies Active Description Code Type Severity Reaction Onset Reported/Identified Relationship to Patient Clinical Status Yes sulfADIAZINE Drug Allergy 10/18/2009 Yes sulfADIAZINE Drug Allergy N/A N/A 10/18/2009 Yes Sulfa (Sulfonamide Antibiotics) [id number] Drug Allergy Moderate N/A 2016 Medications There is no data. Problems Date Dx Coded Attending Type Code Diagnosis Diagnosed By 08/16/2009 477.9 NBA RGIC RHINITIS, CAUSE UNSPECIFIED 08/16/2009 493.92 AST HMA, UNSPECIFIED, WITH (ACUTE) EXACERBATION 08/16/2009 ELLEN DILSA APRN 477.9 ALLERGIC RHINITIS, CAUSE UNSPECIFIED 08/16/2009 ELLEN DISLA APRN 493.92 ASTHMA, UNSPECIFIED, WITH (ACUTE) EXACERBATION 08/16/2009 477.9 BNA RGIC RHINITIS, CAUSE UNSPECIFIED 08/16/2009 493.92 AST [...] ASTHMA, UNSPECIFIED, WITH (ACUTE) EXACERBATION 08/16/2009 DISLA SWEEPER BRUSH MAKER MACHINE ELLEN R 477.9 ALLERGIC RHINITIS, CAUSE UNSPECIFIED 08/16/2009 DISLA SWEEPER BRUSH MAKER MACHINE, ELLEN R 493.92 ASTHMA, UNSPECIFIED, WITH (ACUTE) [...] ASTHMA, UNSPECIFIED, WITH (ACUTE) EXACERBATION 08/16/2009 DISLA SWEEPER BRUSH MAKER MACHINE, ELLEN R 477.9 ALLERGIC RHINITIS, CAUSE UNSPECIFIED 08/16/2009 DISLA SWEEPER BRUSH MAKER MACHINE, ELLEN R 493.92 ASTHMA, UNSPECIFIED, WITH (ACUTE) EXACERBATION 08/16/2009 DISLA SWEEPER BRUSH MAKER MACHINE, ELLEN R 477.9 ALLERGIC RHINITIS, CAUSE UNSPECIFIED 08/16/2009 DISLA SWEEPER BRUSH MAKER MACHINE, ELLEN R 493.92 ASTHMA, UNSPECIFIED, WITH (ACUTE) EXACERBATION 08/16/2009 DISLA SWEEPER BRUSH MAKER MACHINE, ELLEN R 477.9 ALLERGIC RHINITIS, CAUSE UNSPECIFIED [...] ELLEN DISLA APRN 786.2 COUGH 02/04/2011 DISLA SWEEPER BRUSH MAKER MACHINE, ELLEN R 787.01 NAUSEA WITH VOMITING 02/04/2011 [...] K 787.01 NAUSEA WITH VOMITING 02/04/2011 DISLA SWEEPER BRUSH MAKER MACHINE, ELLEN R 493.90 ASTHMA UNSPECIFIED 02/04/2011 DISLA SWEEPER BRUSH MAKER MACHINE, ELLEN R 786.07 WHEEZING 02/04/2011 DISLA SWEEPER BRUSH MAKER MACHINE, ELLEN R 786.2 COUGH 02/04/2011 DISLA SWEEPER BRUSH MAKER MACHINE, ELLEN R 787.01 NAUSEA WITH VOMITING 02/04/2011 DISLA SWEEPER BRUSH MAKER MACHINE, ELLEN R 493.90 ASTHMA UNSPECIFIED 02/04/2011 DISLA SWEEPER BRUSH MAKER MACHINE, ELLEN R 786.07 WHEEZING 02/04/2011 DISLA SWEEPER BRUSH MAKER MACHINE, ELLEN R 786.2 COUGH 02/04/2011 DISLA SWEEPER BRUSH MAKER MACHINE, ELLEN R 787.01 NAUSEA WITH VOMITING 02/04/2011 DISLA SWEEPER BRUSH MAKER MACHINE, ELLEN R 493.90 ASTHMA UNSPECIFIED 02/04/2011 DISLA SWEEPER BRUSH MAKER MACHINE, ELLEN R 786.07 WHEEZING 02/04/2011 DISLA SWEEPER BRUSH MAKER MACHINE, ELLEN R 786.2 COUGH 02/04/2011 DISLA SWEEPER BRUSH MAKER MACHINE, ELLEN R 787.01 NAUSEA WITH VOMITING 02/04/2011 POPE DO, TOSHIA K 493.90 ASTHMA UNSPECIFIED 02/04/2011 POPE DO, TOSHIA K 786.07 WHEEZING 02/04/2011 POPE DO, TOSHIA K 786.2 COUGH 02/04/2011 OPPE DO, TOSHIA K 787.01 NAUSEA WITH VOMITING [...] APRN 783.21 WEIGHT LOSS 09/18/2012 POPE DO, TOSIHA K 783.21 WEIGHT LOSS 10/26/2012 786.05 ZULY [...] unspecified, right, left or both 01/20/2013 DISLA ELELN MICHELLE R 366.10 cataracts unspecified, right, left or both 01/20/2013 POPE DOLESLEYA K 366.10 cataracts unspecified, right, left or both 03/09/2013 MODE MCGARRY, [facility] CCDS Ot 414.01 CORONARY ATHEROSCLEROSIS OF [place] CORON 03/09/2013 MODE MCGARRY, PAZ FACP CCDS Ot 458.9 HYPOTENSION NOS 03/09/2013 [facility] 493.90 ASTHMA, UNSPECIFIED 03/09/2013 MODE [...] BLISS TOSHIA K 786.50 CHEST PAIN 03/23/2013 ELELN DISLA APRN 786.50 CHEST PAIN 03/23/2013 ELLEN [...] R 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 04/05/2013 DISLA SWEEPER BRUSH MAKER MACHINE, ELLEN R 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 04/05/2013 TOSHIA BLISS, TOSHIA K 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 07/08/2013 POPE DO, TOSHIA K 272.0 HYPERCHOLESTEROLEMIA 07/08/2013 POPE DO, TOSHIA K 272.0 HYPERCHOLESTEROLEMIA 07/08/2013 POPE DO, TOSHIA K 272.0 HYPERCHOLESTEROLEMIA 07/08/2013 POPE DO, TOSHIA K 272.0 HYPERCHOLESTEROLEMIA 07/08/2013 NIGHAT BRAXTONN, ELLEN R 272.0 HYPERCHOLESTEROLEMIA 07/08/2013 DISLA SWEEPER BRUSH MAKER MACHINE, ELLEN R 272.0 HYPERCHOLESTEROLEMIA 07/08/2013 DISLA SWEEPER BRUSH MAKER MACHINE, ELLEN R 272.0 HYPERCHOLESTEROLEMIA 07/08/2013 TOSHIA BLISS, [...] LESLEY BLISSA K 719.46 PAIN- KNEE 08/24/2014 LESLEY POPE DOA K 790.29 ABNORMAL GLUCOSE 01/17/2015 VIKI SAAVEDRA LEATHER SKINNER Ot 786.09 01/17/2015 ELLEN DISLA CFNP Ot 786.59 01/17/2015 YAN LARIOS DO Ot 486 01/17/2015 YAN LARIOS DO Ot 525. 9 01/17/2015 YAN LARIOS DO M Ot 786. 09 01/31/2015 VIKI SAAVEDRA LEATHER SKINNER Ot 786.09 01/31/2015 ELLEN DISLA CFFRANK Ot 786.59 01/31/2015 YAN LARIOS DO Ot 486 01/31/2015 RICYAN ROMO DO Ot 525. 9 01/31/2015 YAN LARIOS DO Ot 786. 09 01/31/2015 WIDENER ERIC BLISS Dg Ot V72. 84 01/31/2015 GLORIA SIMONE BLISSDORIS Conte Ot 211. 3 BENIGN NEOPLASM LG BOWEL 01/31/2015 WIDENER ERIC D Ot 553. 3 DIAPHRAGMATIC HERNIA 01/31/2015 GLORIA ERIC BLISS Ot 787. 91 DIARRHEA 01/31/2015 WIDENER ERIC BLISS Ot 792. 1 ABN FIND-STOOL CONTENTS 02/23/2015 VIKI SAAVEDRA Ot 786.09 02/23/2015 ELLEN DISLA Ot 786.59 02/23/2015 RIC YAN BLISS Abiel Ot 486 02/23/2015 RIC YAN BLISS Ot 525. 9 02/23/2015 RIC YAN BLISS Ot 786. 09 02/23/2015 WIDENER ERIC D Ot V72. 84 03/15/2015 WIDENER ERIC BLISS Ot K62. 5 07/27/2015 MODE [...] FACP CCDS Ot J43.8 08/03/2015 MODE SCHILLING [facility], ALI FACP CCDS Ot E78.0 08/03/2015 MODE SCHILLING [facility], ALI FACP CCDS Ot I25.10 08/03/2015 MODE SCHILLING [facility], ALI FACP CCDS Ot I65.23 08/03/2015 MODE SCHILLING [facility], ALI FACP CCDS Ot J43.8 08/03/2015 MODE SCHILLING [facility], ALI FACP CCDS Ot R06.09 01/22/2016 YAN [...] 09 OTHER FORMS OF DYSPNEA 02/16/2016 YAN LARIOS DO Ot J44. 9 CHRONIC OBSTRUCTIVE PULMONARY DISEASE, U 02/16/2016 YAN LARIOS DO Ot K44. 9 DIAPHRAGMATIC HERNIA WITHOUT OBSTRUCTION 02/16/2016 YAN LARIOS DO Ot R06. 09 OTHER FORMS OF DYSPNEA 11/11/2016 ERIC GLORIA DO Ot R19. 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 84 PILE FABRIC KNITTER (CURRENT) USE OF ORAL HYPOGLYC 11/14/2016 ERIC GLORIA DO Ot Z79.899 OTHER ALF (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 THERAPY 11/20/2016 ERIC GLORIA DO Ot E11. 9 TYPE 2 DIABETES MELLITUS WITHOUT COMPLIC 11/20/2016 ERIC GLORIA DO Ot E78. 5 HYPERLIPIDEMIA, UNSPECIFIED 11/20/2016 ERIC GLORIA DO Ot I25.759 ATHSCL [place] ART OF TRANSPLANTED HE 11/20/2016 ERIC [...] 11/20/2016 ERIC GLORIA DO Ot Z79. 84 ALF (CURRENT) USE OF ORAL HYPOGLYC 11/20/2016 ERIC GLORIA DO Ot Z79.899 OTHER ALF (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 THERAPY 01/14/2017 ERIC GLORIA DO Ot K42. 9 UMBILICAL HERNIA WITHOUT OBSTRUCTION OR 01/14/2017 ERIC GLORIA DO Ot Z01.812 ENCOUNTER FOR PREPROCEDURAL LABORATORY E 01/16/2017 ERIC GLORIA DO Ot E11. 9 TYPE 2 DIABETES MELLITUS WITHOUT COMPLIC 01/16/2017 ERIC GLORIA DO Ot E78. 5 HYPERLIPIDEMIA, UNSPECIFIED 01/16/2017 ERIC GLORIA DO Ot I25. 10 ATHSCL HEART DISEASE OF [place] CORONARY 01/16/2017 ERIC GLORIA DO Ot I35. 8 OTHER NONRHEUMATIC AORTIC VALVE DISORDER 01/16/2017 ERIC GLORIA DO Ot J44. 9 CHRONIC OBSTRUCTIVE PULMONARY DISEASE, U 01/16/2017 ERIC GLORIA DO Ot J45.909 UNSPECIFIED ASTHMA, UNCOMPLICATED 01/16/2017 GLORIAERIC MANCINI DO D Ot K43. 2 INCISIONAL HERNIA WITHOUT OBSTRUCTION OR 01/16/2017 GLORIA ERIC BLISS D Ot Z79.899 OTHER PILE FABRIC KNITTER (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 THERAPY 01/16/2017 SIMONE GLORIA DOTT D Ot Z87.891 PERSONAL HISTORY OF NICOTINE DEPENDENCE 01/17/2017 SIMONE GLORIA DOTT D Ot E11. 9 TYPE 2 DIABETES MELLITUS WITHOUT COMPLIC 01/17/2017 ERIC GLORIA DO D Ot E78. 5 HYPERLIPIDEMIA, UNSPECIFIED 01/17/2017 SIMONE GLORIA DOTT D Ot I25. 10 ATHSCL HEART DISEASE OF [place] CORONARY 01/17/2017 SIMONE GLORIA DOTT Dg Ot I35. 8 OTHER NONRHEUMATIC AORTIC VALVE DISORDER 01/17/2017 ERIC GLORIA DO Ot J44. 9 CHRONIC OBSTRUCTIVE PULMONARY DISEASE, U 01/17/2017 ERIC GLORIA DO Ot J45.909 UNSPECIFIED ASTHMA, UNCOMPLICATED 01/17/2017 ERIC GLORIA DO Ot K43. 2 INCISIONAL HERNIA WITHOUT OBSTRUCTION OR 01/17/2017 GLORIA ERIC BLISS Ot Z79.899 OTHER PILE FABRIC KNITTER (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 THERAPY 01/17/2017 ERIC GLORIA DO [...] CCDS Ot I25.10 ATHSCL HEART DISEASE OF [place] CORONARY 06/11/2017 MODE SCHILLING FACC, PAZ FACP CCDS Ot I65.23 OCCLUSION AND STENOSIS OF BILATERAL [place] 06/11/2017 MODE SCHILLING FACC, PAZ FACP CCDS Ot R06.09 OTHER FORMS OF DYSPNEA 06/11/2017 MODE SCHILLING FACC, PAZ FACP CCDS Ot R07.89 OTHER CHEST PAIN 06/17/2017 MODE MD FACC, ALI FACP CCDS Ot I25.10 ATHSCL HEART DISEASE OF [place] CORONARY 06/17/2017 MODE SCHILLING FACC, ALI FACP CCDS Ot I25.10 ATHSCL HEART DISEASE OF [place] CORONARY 06/17/2017 MODE SCHILLING FACC, ALI FACP CCDS Ot I25.10 ATHSCL HEART DISEASE OF [place] CORONARY 06/24/2017 MODE SCHILLING FACC, ALI FACP CCDS Ot I25.10 ATHSCL HEART DISEASE OF [place] CORONARY 06/25/2017 MODE SCHILLING FACC, ALI FACP CCDS Ot E78.5 HYPERLIPIDEMIA, UNSPECIFIED 06/25/2017 MODE SCHILLING FACC, ALI FACP CCDS Ot I25.10 ATHSCL HEART DISEASE OF [place] CORONARY 06/25/2017 MODE SCHILLING FACC, ALI FACP CCDS Ot I65.23 OCCLUSION AND STENOSIS OF BILATERAL [place] 06/25/2017 OMDE SCHILLING FACC, ALI FACP CCDS Ot I73.9 PERIPHERAL VASCULAR DISEASE, UNSPECIFIED 06/25/2017 MODE SCHILLING FACC, ALI FACP CCDS Ot R06.09 OTHER FORMS OF DYSPNEA 06/25/2017 MODE SCHILLING FACC, ALI FACP CCDS Ot E78.5 HYPERLIPIDEMIA, UNSPECIFIED 06/25/2017 MODE SCHILLING FACC, ALI FACP CCDS Ot I25.10 ATHSCL HEART DISEASE OF [place] CORONARY 06/25/2017 MODE SCHILLING FACC, ALI FACP CCDS Ot I65.23 OCCLUSION AND STENOSIS OF BILATERAL [place] 06/25/2017 MODE SCHILLING FACC, ALI FACP CCDS Ot I73.9 PERIPHERAL VASCULAR DISEASE, UNSPECIFIED 06/25/2017 MODE MCGARRYC, ALI FACP CCDS Ot R06.09 OTHER FORMS [...] GLUCOSE 06/29/2017 ANIYAH CORBETT MD Ot Z79.82 PILE FABRIC KNITTER (CURRENT) USE OF ASPIRIN 06/29/2017 ANIYAH CORBETT MD, Ot Z79.84 PILE FABRIC KNITTER (CURRENT) USE OF ORAL HYPOGLYC 06/29/2017 ANIYAH [...] GLUCOSE 07/01/2017 ANIYAH CORBETT MD Ot Z79.82 PILE FABRIC KNITTER (CURRENT) USE OF ASPIRIN 07/01/2017 ANIYAH CORBETT MD Ot Z79.84 PILE FABRIC KNITTER (CURRENT) USE OF ORAL HYPOGLYC 07/01/2017 ANIYAH [...] CCDS Ot E78.4 OTHER HYPERLIPIDEMIA 07/09/2017 MODE SCHILLING FACC, ALI FACP CCDS Ot I25.10 ATHSCL HEART DISEASE OF [place] CORONARY 07/09/2017 MODE SCHILLING FACC, ALI FACP [...] CCDS Ot I25.10 ATHSCL HEART DISEASE OF [place] CORONARY 07/15/2017 MODE SCHILLING FACJenn, ALI FACP [...] CCDS Ot I25.10 ATHSCL HEART DISEASE OF [place] CORONARY 11/01/2017 MODE SCHILLING FACC, ALI FACP [...] CCDS Ot I25.10 ATHSCL HEART DISEASE OF [place] CORONARY 05/11/2018 MODE SCHILLING FACC, ALI FACP [...] CCDS Ot I25.10 ATHSCL HEART DISEASE OF [place] CORONARY 05/11/2018 MODE SCHILLING FACC, ALI FACP [...] CCDS Ot I25.10 ATHSCL HEART DISEASE OF [place] CORONARY 05/11/2018 MODE SCHILLING FACC, ALI FACP CCDS Ot I65.23 OCCLUSION AND STENOSIS OF BILATERAL [place] 05/11/2018 MODE SCHILLING FACC, ALI FACP CCDS Ot I73.9 PERIPHERAL VASCULAR DISEASE, UNSPECIFIED 05/11/2018 MODE SCHILLING FACC, ALI FACP CCDS Ot R06.09 OTHER FORMS OF DYSPNEA 05/11/2018 MODE SCHILLING FACC, ALI FACP CCDS Ot E78.4 OTHER HYPERLIPIDEMIA 05/11/2018 MODE CSHILLING FACJenn, ALI FACP CCDS Ot I25.10 ATHSCL HEART DISEASE OF [place] CORONARY 05/11/2018 MODE SCHILLING FACJenn, ALI FACP [...] CCDS Ot I25.10 ATHSCL HEART DISEASE OF [place] CORONARY 05/11/2018 MODE SCHILLING FACC, ALI FACP [...] CCDS Ot I25.10 ATHSCL HEART DISEASE OF [place] CORONARY 05/11/2018 MODE SCHILLING FACC, ALI FACP [...] CCDS Ot I25.10 ATHSCL HEART DISEASE OF [place] CORONARY 05/11/2018 MODE SCHILLING FACC, ALI FACP [...] CCDS Ot I25.10 ATHSCL HEART DISEASE OF [place] CORONARY 05/11/2018 MODE SCHILLING FACC, ALI FACP [...] OF BREATH 05/11/2018 JOSE ALSTON Ot Z79.82 PILE FABRIC KNITTER (CURRENT) USE OF ASPIRIN 05/11/2018 JOSE ALSTON Ot Z79.84 ALF (CURRENT) USE OF ORAL HYPOGLYC 05/11/2018 ELSY ALSTONIS Ot Z87.01 PERSONAL HISTORY OF PNEUMONIA (RECURRENT 05/11/2018 ELSY ALSTONIS Ot Z87.19 PERSONAL HISTORY OF OTHER DISEASES OF 05/11/2018 ELSY ALSTONIS Ot Z87.440 PERSONAL HISTORY OF URINARY (TRACT) INFE 05/11/2018 ELSY ALSTONIS Ot Z87.891 PERSONAL HISTORY OF NICOTINE DEPENDENCE 05/11/2018 ELSY ALSTONIS Ot Z88.2 ALLERGY STATUS TO SULFONAMIDES STATUS 05/11/2018 ELSY ALSTONIS Ot Z93.8 OTHER ARTIFICIAL OPENING STATUS 05/11/2018 [...] OF BREATH 05/14/2018 JOSE ALSTON Ot Z79.82 ALF (CURRENT) USE OF ASPIRIN 05/14/2018 ELSY ALSTONIS Ot Z79.84 ALF (CURRENT) USE OF ORAL HYPOGLYC 05/14/2018 JOSE [...] OF BREATH 05/17/2018 JOSE ALSTON Ot Z79.82 ALF (CURRENT) USE OF ASPIRIN 05/17/2018 JOSE ALSTON Ot Z79.84 ALF (CURRENT) USE OF ORAL HYPOGLYC 05/17/2018 JOSE [...] Z98.51 TUBAL LIGATION STATUS 05/25/2018 MODE SCHILLING [facility], PAZ DEE CCDS Ot E11.9 TYPE 2 DIABETES MELLITUS WITHOUT COMPLIC 06/02/2018 LAKEISHA LAKE SWEEPER BRUSH MAKER MACHINE Ot E11.9 TYPE 2 DIABETES MELLITUS WITHOUT COMPLIC 06/02/2018 LAKEISHA LAKE APRN Ot J21.8 ACUTE BRONCHIOLITIS DUE TO OTHER SPECIFI 06/02/2018 LAKEISHA LAKE APRN Ot J44.9 CHRONIC OBSTRUCTIVE PULMONARY DISEASE, U 06/02/2018 LAKEISHA LAKE APRN Ot K44.9 DIAPHRAGMATIC HERNIA WITHOUT OBSTRUCTION 06/11/2018 MODE SCHILLING FACC, PAZ DEE CCDS Ot E11.9 TYPE 2 DIABETES MELLITUS WITHOUT COMPLIC 06/16/2018 VIKI SAAVEDRA LEATHER SKINNER Ot E87.6 HYPOKALEMIA 06/24/2018 VIKI SAAVEDRA LEATHER SKINNER Ot E83.42 HYPOMAGNESEMIA 07/13/2018 LAKEISHA LAKE APRN [...] CCDS Ot I25.10 ATHSCL HEART DISEASE OF [place] CORONARY 07/17/2018 MODE SCHILLING FACC, ALI FACP [...] CCDS Ot I25.10 ATHSCL HEART DISEASE OF [place] CORONARY 07/17/2018 MODE SCHILLING FACC, ALI FACP [...] CCDS Ot I25.10 ATHSCL HEART DISEASE OF [place] CORONARY 07/17/2018 MODE SCHILLING FACC, ALI FACP [...] CCDS Ot I25.10 ATHSCL HEART DISEASE OF [place] CORONARY 07/17/2018 MODE SCHILLING FACJenn, ALI FACP [...] DIABETES MELLITUS WITHOUT COMPLIC 07/17/2018 VIKI SAAVEDRA LEATHER SKINNER Ot E87.6 HYPOKALEMIA 07/17/2018 VIKI SAAVEDRA LEATHER SKINNER Ot E83.42 HYPOMAGNESEMIA 07/17/2018 MODE SCHILLING FACC, ALI FACP CCDS Ot E78.4 OTHER HYPERLIPIDEMIA 07/17/2018 MODE SCHILLING FACC, ALI FACP CCDS Ot I25.10 ATHSCL HEART DISEASE OF [place] CORONARY 07/17/2018 MODE SCHILLING FACC, ALI FACP CCDS Ot I65.23 OCCLUSION AND STENOSIS OF BILATERAL [place] 07/17/2018 MODE SCHILLING FACC, ALI FACP CCDS [...] CCDS Ot I25.10 ATHSCL HEART DISEASE OF [place] CORONARY 08/27/2018 MODE SCHILLING FACC, ALI FACP [...] CCDS Ot I25.10 ATHSCL HEART DISEASE OF [place] CORONARY 08/27/2018 MODE SCHILLING FACC, ALI FACP [...] CCDS Ot I25.10 ATHSCL HEART DISEASE OF [place] CORONARY 08/27/2018 MODE SCHILLING FACC, ALI FACP [...] CCDS Ot I25.10 ATHSCL HEART DISEASE OF [place] CORONARY 08/27/2018 MODE SCHILLING FACC, ALI FACP CCDS Ot I65.23 OCCLUSION AND STENOSIS OF BILATERAL [place] 08/27/2018 MODE SCHILLING FACC, ALI FACP CCDS Ot R06.09 OTHER FORMS OF DYSPNEA 08/27/2018 MODE MCGARRY, ALI FACP CCDS Ot R07.89 OTHER CHEST PAIN 08/27/2018 LAKEISHA LAKE APRN Ot E11.9 TYPE 2 DIABETES MELLITUS WITHOUT COMPLIC 08/27/2018 LAKEISHA LAKE SWEEPER BRUSH MAKER MACHINE Ot J21.8 ACUTE BRONCHIOLITIS DUE TO OTHER SPECIFI 08/27/2018 LAKEISHA LAKE SWEEPER BRUSH MAKER MACHINE Ot J44.9 CHRONIC OBSTRUCTIVE PULMONARY DISEASE, U 08/27/2018 LAKEISHA LAKE APRN Ot K44.9 DIAPHRAGMATIC HERNIA WITHOUT OBSTRUCTION 08/27/2018 MODE MCGARRY, ALI FACP CCDS Ot E11.9 TYPE 2 DIABETES MELLITUS WITHOUT COMPLIC 08/27/2018 VIKI SAAVEDRA LEATHER SKINNER Ot E87.6 HYPOKALEMIA 08/27/2018 VIKI SAAVEDRA LEATHER SKINNER Ot E83.42 HYPOMAGNESEMIA 09/16/2018 MODE SCHILLING FACC, ALI FACP CCDS Ot E78.4 OTHER HYPERLIPIDEMIA 09/16/2018 MODE SCHILLING FACC, ALI FACP CCDS Ot I25.10 ATHSCL HEART DISEASE OF [place] CORONARY 09/16/2018 MODE SCHILLING FACC, ALI FACP CCDS Ot I65.23 OCCLUSION AND STENOSIS OF BILATERAL [place] 09/16/[address] [facility], [facility] F[facility] CCDS Ot R06.09 OTHER FORMS OF DYSPNEA 09/16/2018 MODE SCHILLING [facility], ALI FACP CCDS Ot R07.89 OTHER CHEST PAIN 07/15/2019 YAN LARIOS DO Ot 486 PNEUMONIA, ORGANISM NOS 07/15/2019 YAN LARIOS DO Ot 525. 9 DENTAL DISORDER NOS 07/15/2019 YAN LARIOS DO Ot 786. 09 RESPIRATORY ABNORM NEC 07/15/2019 ERIC GLORIA DO Ot V72. 84 EXAM PRE-OPERATIVE NOS 07/15/2019 GLORIA ERIC BLISS Ot K62. 5 HEMORRHAGE OF ANUS AND RECTUM 07/15/[address] [facility], [facility]I FACP CCDS Ot E78.0 PURE HYPERCHOLESTEROLEMIA 07/15/2019 MODE SCHILLING [facility], ALI FACP CCDS Ot I25.10 ATHSCL HEART DISEASE OF [place] CORONARY 07/15/[address] [facility], [facility]I FACP CCDS Ot I65.23 OCCLUSION AND STENOSIS OF BILATERAL [place] 07/15/2019 MODE SCHILLING [facility], ALI FACP CCDS Ot J43.8 OTHER EMPHYSEMA 07/15/2019 MODE SCHILLING [facility], ALI FACP CCDS Ot R06.09 OTHER FORMS OF DYSPNEA 07/15/[address] [facility], [facility] FACP CCDS Ot E78.0 PURE HYPERCHOLESTEROLEMIA 07/15/2019 MODE SCHILLING [facility], ALI FACP CCDS Ot I25.10 ATHSCL HEART DISEASE OF [place] CORONARY 07/15/2019 MODE SCHILLING [facility], ALI FACP CCDS Ot I65.23 OCCLUSION AND STENOSIS OF BILATERAL [place] 07/15/2019 MODE SCHILLING [facility], ALI FACP CCDS Ot J43.8 OTHER EMPHYSEMA 07/15/2019 YAN LARIOS DO Ot J44. 9 CHRONIC OBSTRUCTIVE PULMONARY DISEASE, U 07/15/2019 YAN LARIOS DO Ot K44. 9 DIAPHRAGMATIC HERNIA WITHOUT OBSTRUCTION 07/15/2019 YAN LARIOS DO Ot R06. 09 OTHER FORMS OF DYSPNEA 07/15/[address] [facility], [facility]I FACP CCDS Ot E78.5 HYPERLIPIDEMIA, UNSPECIFIED 07/15/[address] [facility], [facility]I FACP CCDS Ot I25.10 ATHSCL HEART DISEASE OF [place] CORONARY 07/15/2019 MODE SCHILLING [facility], ALI FACP CCDS Ot I65.23 OCCLUSION AND STENOSIS OF BILATERAL [place] 07/15/2019 MODE SCHILLING [facility], ALI FACP CCDS Ot I73.9 PERIPHERAL VASCULAR DISEASE, UNSPECIFIED 07/15/2019 MODE SCHILLING [facility], ALI FACP CCDS Ot R06.09 OTHER FORMS OF DYSPNEA 07/15/2019 MODE SCHILLING [facility], ALI FACP CCDS Ot E78.4 OTHER HYPERLIPIDEMIA 07/15/2019 MODE SCHILLING [facility], ALI FACP CCDS Ot I25.10 ATHSCL HEART DISEASE OF [place] CORONARY 07/15/2019 MODE SCHILLING [facility], ALI FACP CCDS Ot I65.23 OCCLUSION AND STENOSIS OF BILATERAL [place] 07/15/2019 MODE SCHILLING [facility], ALI FACP CCDS Ot R06.09 OTHER FORMS OF DYSPNEA 07/15/2019 MODE SCHILLING [facility], ALI FACP CCDS Ot R07.89 OTHER CHEST PAIN 07/15/2019 LAKEISHA LAKE APRN Ot E11.9 TYPE 2 DIABETES MELLITUS WITHOUT COMPLIC 07/15/2019 LAKEISHA LAKE APRN Ot J21.8 ACUTE BRONCHIOLITIS DUE TO OTHER SPECIFI 07/15/2019 LAKEISHA LAKE SWEEPER BRUSH MAKER MACHINE Ot J44.9 CHRONIC OBSTRUCTIVE PULMONARY DISEASE, U 07/15/2019 LAKEISHA LAKE APRN Ot K44.9 DIAPHRAGMATIC HERNIA WITHOUT OBSTRUCTION 07/15/2019 MODE SCHILLING [facility], ALI FACP CCDS Ot E11.9 TYPE 2 DIABETES MELLITUS WITHOUT COMPLIC 07/15/2019 VIKI SAAVEDRA LEATHER SKINNER Ot E87.6 HYPOKALEMIA 07/15/2019 VIKI SAAVEDRA LEATHER SKINNER Ot E83.42 HYPOMAGNESEMIA 07/15/2019 YAN LARIOS DO [...] CCDS Ot I25.10 ATHSCL HEART DISEASE OF [place] CORONARY 07/15/2019 MODE MD FACC, ALI FACP [...] CCDS Ot I25.10 ATHSCL HEART DISEASE OF [place] CORONARY 07/15/2019 MODE MD FACC, ALI FACP CCDS Ot I65.23 OCCLUSION AND STENOSIS OF BILATERAL [place] 07/15/2019 MODE MD FAC, ALI FACP CCDS Ot J43.8 OTHER EMPHYSEMA 07/15/2019 YAN LARIOS DO Ot J44. 9 CHRONIC OBSTRUCTIVE PULMONARY DISEASE, U 07/15/2019 YAN LARIOS DO Ot K44. 9 DIAPHRAGMATIC HERNIA WITHOUT OBSTRUCTION 07/15/2019 YAN LARIOS DO Ot R06. 09 OTHER FORMS OF DYSPNEA 07/15/2019 MODE [facility], ALI FACP CCDS Ot E78.5 HYPERLIPIDEMIA, UNSPECIFIED 07/15/2019 [facility] CCD[facility] Ot I25.10 ATHSCL HEART DISEASE OF [place] CORONARY 07/15/2019 MODE MD FAC, ALI FACP CCDS Ot I65.23 OCCLUSION AND STENOSIS OF [place]ILATERAL [place] 07/15/2019 [facility] CCDS Ot I73.9 PERIPHERAL VASCULAR DISEASE, UNSPECIFIED 07/15/2019 MODE [facility] FAC, ALI FACP CCDS Ot R06.09 OTHER FORMS OF DYSPNEA 07/15/2019 MODE [place] FACC, ALI FACP CCDS Ot E78.4 OTHER HYPERLIPIDEMIA 07/15/2019 MODE [place] FAC, ALI FACP CCDS Ot I25.10 ATHSCL HEART DISEASE OF [place] CORONARY 07/15/2019 MODE MD FACC, ALI FACP CCDS Ot I65.23 OCCLUSION AND STENOSIS OF [place] 07/15/2019 MODE [place] FACC, ALI FACP CCDS Ot R06.09 OTHER [...] DIABETES MELLITUS WITHOUT COMPLIC 07/15/2019 VIKI SAAVEDRA LEATHER SKINNER Ot E87.6 HYPOKALEMIA 07/15/2019 VIKI SAAVEDRA LEATHER SKINNER Ot E83.42 HYPOMAGNESEMIA 07/16/2019 YAN LARIOS DO [...] CCDS Ot I25.10 ATHSCL HEART DISEASE OF [place] CORONARY 07/16/2019 MODE SCHILLING FACC, ALI FACP [...] CCDS Ot I25.10 ATHSCL HEART DISEASE OF [place] CORONARY 07/16/2019 MODE SCHILLING FACC, ALI FACP CCDS Ot I65.23 OCCLUSION AND STENOSIS OF [place] 07/16/2019 MODE SCHILLING [facility], ALI FACP CCDS Ot J43.8 OTHER EMPHYSEMA 07/16/2019 YAN LARIOS DO Ot J44. 9 CHRONIC OBSTRUCTIVE PULMONARY DISEASE, U 07/16/2019 YAN LARIOS DO Ot K44. 9 DIAPHRAGMATIC HERNIA WITHOUT OBSTRUCTION 07/16/2019 YAN LARIOS DO Ot R06. 09 OTHER FORMS OF DYSPNEA 07/16/2019 MODE MD [facility], ALI FACP CCDS Ot E78.5 HYPERLIPIDEMIA, UNSPECIFIED 07/16/2019 MODE MD [facility], ALI FACP CCDS Ot I25.10 ATHSCL HEART DISEASE OF [place] CORONARY 07/16/2019 MODE MD [facility], ALI FACP CCDS Ot I65.23 OCCLUSION AND STENOSIS OF [place] 07/16/2019 MODE [facility], ALI FACP CCDS Ot I73.9 PERIPHERAL VASCULAR DISEASE, UNSPECIFIED 07/16/2019 MODE MD [facility], ALI FACP CCDS Ot R06.09 OTHER FORMS OF DYSPNEA 07/16/2019 MODE MD [facility], ALI FACP CCDS Ot E78.4 OTHER HYPERLIPIDEMIA 07/16/2019 MODE MD [facility], ALI FACP CCDS Ot I25.10 ATHSCL HEART DISEASE OF [place] CORONARY 07/16/2019 MODE [facility], ALI FACP CCDS Ot I65.23 OCCLUSION AND STENOSIS OF [place] 07/16/2019 MODE MD [facility], ALI FACP CCDS Ot R06.09 OTHER FORMS OF DYSPNEA 07/16/2019 MODE MD [facility], ALI FACP CCDS Ot R07.89 OTHER CHEST PAIN 07/16/2019 LAKEISHA LAKE APRN Ot E11.9 TYPE 2 DIABETES MELLITUS WITHOUT COMPLIC 07/16/2019 LAKEISHA LAKE APRN Ot J21.8 ACUTE BRONCHIOLITIS DUE TO OTHER SPECIFI 07/16/2019 LAKEISHA LAKE APRN Ot J44.9 CHRONIC OBSTRUCTIVE PULMONARY DISEASE, U 07/16/2019 LAKEISHA LAKE APRN Ot K44.9 DIAPHRAGMATIC HERNIA WITHOUT OBSTRUCTION 07/16/2019 MODE SCHILLING [facility], ALI FACP CCDS Ot E11.9 TYPE 2 DIABETES MELLITUS WITHOUT COMPLIC 07/16/2019 VIKI SAAVEDRA LEATHER SKINNER Ot E87.6 HYPOKALEMIA 07/16/2019 VIKI SAAVEDRA Ot E83.42 HYPOMAGNESEMIA 07/20/2019 KERNS DO, FELIX Ot D50.0 IRON DEFICIENCY ANEMIA SECONDARY TO BLOO 07/20/2019 KERNS DO, FELIX Ot D50.9 IRON DEFICIENCY ANEMIA, UNSPECIFIED 07/20/2019 KERNS DO, FELIX Ot E11.9 TYPE 2 DIABETES MELLITUS WITHOUT COMPLIC 07/20/2019 KERNS DO, FELIX Ot E78.00 PURE HYPERCHOLESTEROLEMIA, UNSPECIFIED 07/20/2019 KERNS DO, FELIX Ot F41.9 ANXIETY DISORDER, UNSPECIFIED 07/20/2019 KERNS DO, FELIX Ot J44.9 CHRONIC OBSTRUCTIVE PULMONARY DISEASE, U 07/20/2019 KERNS DO, FELIX Ot K21.0 GASTRO-ESOPHAGEAL REFLUX DISEASE WITH ES 07/20/2019 KERNS DO, FELIX Ot K25.0 ACUTE GASTRIC ULCER WITH HEMORRHAGE 07/20/2019 KERNS DO, FELIX Ot K25.9 GASTRIC ULCER, UNSP ACUTE OR CHRONIC, 07/20/2019 KERNS DO FELIX Ot K29.70 GASTRITIS, UNSPECIFIED, WITHOUT BLEEDING 07/20/2019 KERNS DO, FELIX Ot K29.71 GASTRITIS, UNSPECIFIED, WITH BLEEDING 07/20/2019 KERNS DO, FELIX Ot K44.9 DIAPHRAGMATIC HERNIA WITHOUT OBSTRUCTION 07/20/2019 KERNS DO, FELIX Ot K52.9 NONINFECTIVE GASTROENTERITIS AND COLITIS 07/20/2019 KERNS DO, FELIX Ot S32.01 0A WEDGE COMPRESSION FRACTURE OF FIRST LUMB 07/20/2019 LUIS F DO FELIX Ot S32.60 1A UNSP FRACTURE OF RIGHT ISCHIUM, INIT FOR 07/20/2019 LUIS F DO, FELIX Ot W18.30 XA FALL ON SAME LEVEL, UNSPECIFIED, INITIAL 07/20/2019 LUIS F DO, FELIX Ot Z79.82 ALF (CURRENT) USE OF ASPIRIN 07/20/2019 LUIS F BLISS FELIX Ot Z79.84 ALF (CURRENT) USE OF ORAL HYPOGLYC 07/20/2019 LUIS F BLISS FELIX Ot Z79.89 9 OTHER PILE FABRIC KNITTER (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 THERAPY 07/20/2019 LUIS F BLISS FELIX Ot Z88.2 ALLERGY STATUS TO SULFONAMIDES STATUS 07/29/2019 YAN LARIOS DO Ot 486 PNEUMONIA, ORGANISM NOS 07/29/2019 YAN LARIOS DO Ot 525. 9 DENTAL DISORDER NOS 07/29/2019 YAN LARIOS DO Ot 786. 09 RESPIRATORY ABNORM NEC 07/29/2019 ERIC GLORIA DO Ot V72. 84 EXAM PRE-OPERATIVE NOS 07/29/2019 ERIC GLORIA DO Ot K62. 5 HEMORRHAGE OF ANUS AND RECTUM 07/29/2019 MODE SCHILLING FACC, ALI FACP CCDS Ot E78.0 PURE HYPERCHOLESTEROLEMIA 07/29/2019 MODE SCHILLING FACC, ALI FACP CCDS Ot I25.10 ATHSCL HEART DISEASE OF [place] CORONARY 07/29/2019 MODE SCHILLING FACC, ALI FACP CCDS Ot I65.23 OCCLUSION AND STENOSIS OF BILATERAL [place] 07/29/2019 MODE SCHILLING FACC, ALI FACP CCDS Ot J43.8 OTHER EMPHYSEMA 07/29/2019 MODE SCHILLING FACC, ALI FACP CCDS Ot R06.09 OTHER FORMS OF DYSPNEA 07/29/2019 MODE SCHILLING FACC, ALI FACP CCDS Ot E78.0 PURE HYPERCHOLESTEROLEMIA 07/29/2019 MODE SCHILLING FACC, ALI FACP CCDS Ot I25.10 ATHSCL HEART DISEASE OF [place] CORONARY 07/29/2019 MODE SCHILLING FACC, ALI FACP CCDS Ot I65.23 OCCLUSION AND STENOSIS OF BILATERAL [place] 07/29/2019 MODE SCHILLING FACC, ALI FACP CCDS Ot J43.8 OTHER EMPHYSEMA 07/29/2019 YAN LARIOS DO Ot J44. 9 CHRONIC OBSTRUCTIVE PULMONARY DISEASE, U 07/29/2019 YAN LARIOS DO Ot K44. 9 DIAPHRAGMATIC HERNIA WITHOUT OBSTRUCTION 07/29/2019 YAN LARIOS DO Ot R06. 09 OTHER FORMS OF DYSPNEA 07/29/2019 MODE SCHILLING FACC, ALI FACP CCDS Ot E78.5 HYPERLIPIDEMIA, UNSPECIFIED 07/29/2019 MODE SCHILLING FACC, ALI FACP CCDS Ot I25.10 ATHSCL HEART DISEASE OF [place] CORONARY 07/29/2019 MODE SCHILLING FACC, ALI FACP CCDS Ot I65.23 OCCLUSION AND STENOSIS OF BILATERAL [place] 07/29/2019 MODE SCHILLING FACC, ALI FACP CCDS Ot I73.9 PERIPHERAL VASCULAR DISEASE, UNSPECIFIED 07/29/2019 MODE SCHILLING FACC, ALI FACP CCDS Ot R06.09 OTHER FORMS OF DYSPNEA 07/29/2019 MODE SCHILLING [facility], ALI FACP CCDS Ot E78.4 OTHER HYPERLIPIDEMIA 07/29/2019 MODE SCHILLING [facility], ALI FACP CCDS Ot I25.10 ATHSCL HEART DISEASE OF [place] CORONARY 07/29/2019 MODE SCHILLING [facility], ALI FACP CCDS Ot I65.23 OCCLUSION AND STENOSIS OF BILATERAL [place] 07/29/2019 MODE SCHILLING [facility], ALI FACP CCDS Ot R06.09 OTHER FORMS OF DYSPNEA 07/29/2019 MODE SCHILLING [facility] FACP CCDS Ot R07.89 OTHER CHEST PAIN 07/29/2019 LAKEISHA LAKE SWEEPER BRUSH MAKER MACHINE Ot E11.9 TYPE 2 DIABETES MELLITUS WITHOUT COMPLIC 07/29/2019 LAKEISHA LAKE SWEEPER BRUSH MAKER MACHINE Ot J21.8 ACUTE BRONCHIOLITIS DUE TO OTHER SPECIFI 07/29/2019 LAKEISHA LAKE SWEEPER BRUSH MAKER MACHINE Ot J44.9 CHRONIC OBSTRUCTIVE PULMONARY DISEASE, U 07/29/2019 LAKEISHA LAKE SWEEPER BRUSH MAKER MACHINE Ot K44.9 DIAPHRAGMATIC HERNIA WITHOUT OBSTRUCTION 07/29/2019 MODE SCHILLING [facility] FACP CCDS Ot E11.9 TYPE 2 DIABETES MELLITUS WITHOUT COMPLIC 07/29/2019 VIKI SAAVEDRA LEATHER SKINNER Ot E87.6 HYPOKALEMIA 07/29/2019 VIKI SAAVEDRA LEATHER SKINNER Ot E83.42 HYPOMAGNESEMIA 08/03/2019 KERNS DO, FELIX Ot D50.9 IRON DEFICIENCY ANEMIA, UNSPECIFIED 08/03/2019 KERNS DO, FELIX Ot E11.9 TYPE 2 DIABETES MELLITUS WITHOUT COMPLIC 08/03/2019 KERNS DO FELIX Ot E78.00 PURE HYPERCHOLESTEROLEMIA, UNSPECIFIED 08/03/2019 KERNS DO, FELIX Ot F41.9 ANXIETY DISORDER, UNSPECIFIED 08/03/2019 KERNS DO, FELIX Ot J44.9 CHRONIC OBSTRUCTIVE PULMONARY DISEASE, U 08/03/2019 LUIS F DO, FELIX Ot K21.0 GASTRO-ESOPHAGEAL REFLUX DISEASE WITH ES 08/03/2019 LUIS F DO FELIX Ot K25.0 ACUTE GASTRIC ULCER WITH HEMORRHAGE 08/03/2019 KERNS DO FELIX Ot K29.71 GASTRITIS, UNSPECIFIED, WITH BLEEDING 08/03/2019 LUIS F DO FELIX Ot K44.9 DIAPHRAGMATIC HERNIA WITHOUT OBSTRUCTION 08/03/2019 LUIS F BLISS FELIX Ot K52.9 NONINFECTIVE GASTROENTERITIS AND COLITIS 08/03/2019 LUIS F BLISS FELIX Ot S32.01 0A WEDGE COMPRESSION FRACTURE OF FIRST LUMB 08/03/2019 LUIS F BLISS FELIX Ot S32.60 1A UNSP FRACTURE OF RIGHT ISCHIUM, INIT FOR 08/03/2019 LUIS F BLISS FELIX Ot W18.30 XA FALL ON SAME LEVEL, UNSPECIFIED, INITIAL 08/03/2019 LUIS F BLISS FELIX Ot Z79.82 PILE FABRIC KNITTER (CURRENT) USE OF ASPIRIN 08/03/2019 LUIS F BLISS FELIX Ot Z79.84 ALF (CURRENT) USE OF ORAL HYPOGLYC 08/03/2019 GUANACO KERNS DOI Ot Z79.89 9 OTHER PILE FABRIC KNITTER (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 THERAPY 08/03/2019 LUIS F BLISS FELIX Ot Z88.2 ALLERGY STATUS TO SULFONAMIDES STATUS 08/03/2019 LUIS F BLISS FELIX Ot D50.9 IRON DEFICIENCY ANEMIA, UNSPECIFIED 08/03/2019 LUIS F BLISS FELIX Ot E11.9 TYPE 2 DIABETES MELLITUS WITHOUT COMPLIC 08/03/2019 LUIS F BLISS FELIX Ot E78.00 PURE HYPERCHOLESTEROLEMIA, UNSPECIFIED 08/03/2019 LUIS F BLISS FELIX Ot F41.9 ANXIETY DISORDER, UNSPECIFIED 08/03/2019 LUIS F BLISS FELIX Ot J44.9 CHRONIC OBSTRUCTIVE PULMONARY DISEASE, U 08/03/2019 LUIS F BLISS FELIX Ot K21.0 GASTRO-ESOPHAGEAL REFLUX DISEASE WITH ES 08/03/2019 LUIS F BLISS FELIX Ot K25.0 ACUTE GASTRIC ULCER WITH HEMORRHAGE 08/03/2019 LUIS F BLISS FELIX Ot K29.71 GASTRITIS, UNSPECIFIED, WITH BLEEDING 08/03/2019 LUIS F BLISS FELIX Ot K44.9 DIAPHRAGMATIC HERNIA WITHOUT OBSTRUCTION 08/03/2019 LUIS F BLISS FELIX Ot K52.9 NONINFECTIVE GASTROENTERITIS AND COLITIS 08/03/2019 LUIS F BLISS FELIX Ot S32.01 0A WEDGE COMPRESSION FRACTURE OF FIRST LUMB 08/03/2019 LUIS F BLISS FELIX Ot S32.60 1A UNSP FRACTURE OF RIGHT ISCHIUM, INIT FOR 08/03/2019 LUIS F BLISS FELIX Ot W18.30 XA FALL ON SAME LEVEL, UNSPECIFIED, INITIAL 08/03/2019 LUIS F BLISS FELIX Ot Z79.82 PILE FABRIC KNITTER (CURRENT) USE OF ASPIRIN 08/03/2019 LUIS F BLISS FELIX Ot Z79.84 PILE FABRIC KNITTER (CURRENT) USE OF ORAL HYPOGLYC 08/03/2019 LUIS F BLISS FELIX Ot Z79.89 9 OTHER PILE FABRIC KNITTER (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 THERAPY 08/03/2019 LUIS F BLISS FELIX Ot Z88.2 ALLERGY STATUS TO SULFONAMIDES STATUS 08/03/2019 LUIS F BLISS FELIX Ot D50.9 IRON DEFICIENCY ANEMIA, UNSPECIFIED 08/03/2019 LUIS F BLISS FELIX Ot E11.9 TYPE 2 DIABETES MELLITUS WITHOUT COMPLIC 08/03/2019 LUIS F BLISS FELIX Ot E78.00 PURE HYPERCHOLESTEROLEMIA, UNSPECIFIED 08/03/2019 LUIS F BLISS FELIX Ot F41.9 ANXIETY DISORDER, UNSPECIFIED 08/03/2019 LUIS F BLISS FELIX Ot J44.9 CHRONIC OBSTRUCTIVE PULMONARY DISEASE, U 08/03/2019 LUIS F BLISS FELIX Ot K21.0 GASTRO-ESOPHAGEAL REFLUX DISEASE WITH ES 08/03/2019 LUIS F BLISS FELIX Ot K25.0 ACUTE GASTRIC ULCER WITH HEMORRHAGE 08/03/2019 LUIS F BLISS FELIX Ot K29.71 GASTRITIS, UNSPECIFIED, WITH BLEEDING 08/03/2019 LUIS F BLISS FLEIX Ot K44.9 DIAPHRAGMATIC HERNIA WITHOUT OBSTRUCTION 08/03/2019 LUIS F BLISS FELIX Ot K52.9 NONINFECTIVE GASTROENTERITIS AND COLITIS 08/03/2019 LUIS F BLISS FELIX Ot S32.01 0A WEDGE COMPRESSION FRACTURE OF FIRST LUMB 08/03/2019 LUIS F BLISS FELIX Ot S32.60 1A UNSP FRACTURE OF RIGHT ISCHIUM, INIT FOR 08/03/2019 LUIS F BLISS FELIX Ot W18.30 XA FALL ON SAME LEVEL, UNSPECIFIED, INITIAL 08/03/2019 LUIS F BLISS FELIX Ot Z79.82 PILE FABRIC KNITTER (CURRENT) USE OF ASPIRIN 08/03/2019 LUIS F BLISS FELIX Ot Z79.84 ALF (CURRENT) USE OF ORAL HYPOGLYC 08/03/2019 LUIS F BLISS FELIX Ot Z79.89 9 OTHER PILE FABRIC KNITTER (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 THERAPY 08/03/2019 LUIS F BLISS FELIX Ot Z88.2 ALLERGY STATUS TO SULFONAMIDES STATUS 09/23/2019 ELLEN DISLA Ot S32.501D UNSP FRACTURE OF RIGHT PUBIS, SUBS FOR F 09/23/2019 ELLEN DISLA CFNP Ot W19.XXXD UNSPECIFIED FALL, SUBSEQUENT ENCOUNTER 09/28/2019 ELLEN DISLA CFFRANK Ot S32.501D UNSP FRACTURE OF RIGHT PUBIS, SUBS FOR F 09/28/2019 ELLEN DISLA CFNP Ot W19.XXXD UNSPECIFIED FALL, SUBSEQUENT ENCOUNTER Procedures Code Description Performed By Per hue On [employer] [facility] 01/20/2013 14829 XRAY CHEST 2 VIEW 03/29/2013 57245 H PY HARDY (IN-HOUSE) 04/05/2013 80117 ROUT INE VENIPUNCTURE 06/14/2013 [id number] GF R CALC (RESULT ONLY) 06/14/2013 05363 CMP 06/14/2013 85356 LIPI D PANEL 06/14/2013 23241 TSH 06/14/2013 75490 ROUT INE VENIPUNCTURE 07/30/2013 [id number] GF R CALC (RESULT ONLY) 07/30/2013 22890 CMP 07/30/2013 72995 LIPI D PANEL 07/30/2013 14027 A1C (IN-HOUSE) 09/28/2013 36845 ROUT INE VENIPUNCTURE 01/12/2014 [id number] GF R CALC (RESULT ONLY) 01/12/2014 71318 CMP 01/12/2014 16143 LIPI D PANEL 01/12/2014 98159 ROUT INE VENIPUNCTURE 06/09/2014 [id number] GF R CALC (RESULT ONLY) 06/09/2014 56274 CMP 06/09/2014 90739 LIPI D PANEL 06/09/2014 29843 XRAY KNEE LEFT, 1 OR 2 VIEWS 08/24/2014 43850 A1C (IN-HOUSE) 08/24/2014 43099 GLUC OSE FINGER STICK 08/24/2014 [id number] EX CISION OF STOMACH, ENDO, DIAGN 07/17/2019 Results Test Result Range Complete blood count [...] FOR INFLUENZA A AND B ANTIGENS BY IA [facility] Comprehensive metabolic panel - 05/11/18 [...] calculation of estimated glomerular filtration rate > [facility] Serum or plasma glucose measurement (mass/volume) 132 [...] 12:1 9 FREE TEXT EXTERNAL SUSCEPTIBILITY REPORTED 05-14-18 1205. NRG QUANTITY OF GROWTH Many NRG FREE TEXT ENTRY 2 RML SENT ID REPORT 05/13 12:05 NRG Bacterial sputum culture [id number] NR RM KB Sensitivity Panel - 05/11/18 12:1 9 [...] 7-25 CREATININE 0.58 mg/dL 0.50-0.99 eGFR NON-AFR. [place] 96 mL/min/1.73m2 > OR = 60 eGFR [...] NRG Blood type T Indirect antibody screen pa martina - 07/18/19 07:24 WRISTBAND NUMBER [id number] NRG ABO+Rh group AP NRG Blood group antibody screen NEGATIVE NR G OCCULT BLOOD STOOL - 07/18/19 10:33 Stool gastrointestinal hemoglobin detection NEGATI VE NEGATIVE Whole blood hemoglobin and hematocrit pa martina - 07/18/19 21:20 Venous blood hemoglobin measurement (mass/volume) [...] g/dL 3.2-4.5 CALCIUM CORRECTED 8.9 mg/dL 8.5-10.1 Complete blood count (CBC) with automate d white blood cell (WBC) differential - 07/20/19 06:23 Blood leukocytes automated count (number/volume) 4.8 10*3/uL 4.3-11.0 Blood erythrocytes automated count (number/volume) 4.48 10*6/uL 4.35-5.85 Venous blood hemoglobin measurement (mass/volume) 10.6 g/dL 11.5-16.0 Blood hematocrit (volume fraction) 34 % 35-52 Automated erythrocyte mean corpuscular volume 76 [ foz_us] 80-99 Automated erythrocyte mean corpuscular h emoglobin (mass per erythrocyte) 24 pg 25-34 Automated erythrocyte mean corpuscular h emoglobin concentration measurement (mass/volume) 31 g/dL 32-36 Automated erythrocyte distribution width ratio 19. 1 % 10.0- 14.5 Automated blood platelet count (count/volume) 329 10*3/uL 130-400 Automated blood platelet mean volume measurement 9.4 [foz_us] 7.4-10.4 Automated blood neutrophils/100 leukocytes 54 % 42-75 Automated blood lymphocytes/100 leukocytes 31 % 12-44 Blood monocytes/100 leukocytes 10 % 0-12 Automated blood eosinophils/100 leukocytes 3 % 0-10 Automated blood basophils/100 leukocytes 2 % 0-10 Blood neutrophils automated count (number/volume) 2.6 10*3 1.8-7.8 Blood lymphocytes automated count (number/volume) 1.5 10*3 1.0-4.0 Blood monocytes automated count (number/volume) 0. 5 10*3 0.0-1.0 Automated eosinophil count 0.2 10*3/uL 0 .0-0.3 Automated blood basophil count (count/volume) 0.1 10*3/uL 0.0-0.1 Comprehensive metabolic panel - 07/20/19 06:23 Serum or plasma sodium measurement (moles/volume) 137 mmol/L 135-145 Serum or plasma potassium measurement (moles/volume) 3.8 mmol/L 3.6-5.0 Serum or plasma chloride measurement (moles/volume) 101 mmol/L 98-107 Carbon dioxide 25 mmol/L 21-32 Serum or plasma anion gap determination (moles/volume) 11 mmol/L 5-14 Serum or plasma urea nitrogen measurement (mass/volume ) 7 mg/dL 7-18 Serum or plasma creatinine measurement (mass/volume) 0.64 mg/dL 0.60-1.30 Serum or plasma urea nitrogen/creatinine mass ratio 11 NRG Serum or plasma creatinine measurement w ith calculation of estimated glomerular filtration rate > NRG Serum or plasma glucose measurement (mass/volume) 94 mg/dL 70-105 Serum or plasma calcium measurement (mass/volume) 8.9 mg/dL 8.5-10.1 Serum or plasma total bilirubin measurement (mass/volu me) 0.6 mg/dL 0.1-1.0 Serum or plasma alkaline phosphatase rosemarie surement (enzymatic activity/volume) 53 U/L 40-136 Serum or plasma aspartate aminotransfera se measurement (enzymatic activity/volume) 12 U/L 5-34 Serum or plasma alanine aminotransferase measurement (enzymatic activity/volume) 10 U/L 0-55 Serum or plasma protein measurement (mass/volume) 6.6 g/dL 6.4-8.2 Serum or plasma albumin measurement (mass/volume) 3.9 g/dL 3.2-4.5 CALCIUM CORRECTED 9.0 mg/dL 8.5-10.1 ANEMIA PANEL - 09/24/19 09:16 IRON, TOTAL 80 mcg/dL 45-160 FERRITIN 14 ng/mL 16-288 IRON BINDING CAPACITY 384 mcg/dL (calc) 250-450 % SATURATION 21 % (calc) 16-45 LIPID PANEL - 09/24/19 09:16 CHOLESTEROL, TOTAL 162 mg/dL <200 HDL CHOLESTEROL 66 mg/dL > OR = 50 TRIGLYCERIDES 129 mg/dL <150 LDL-CHOLESTEROL 75 mg/dL (calc) NRG CHOL/HDLC RATIO 2.5 (calc) <5.0 NON HDL CHOLESTEROL 96 mg/dL (calc) <130 CMP - 09/24/19 09:16 GLUCOSE 109 mg/dL 65-99 UREA NITROGEN (BUN) 12 mg/dL 7-25 CREATININE 0.61 mg/dL 0.50-0.99 eGFR NON-AFR. [place] 93 mL/min/1.73m2 > OR = 60 eGFR 108 mL/min/1.73m2 > OR = 60 BUN/CREATININE RATIO NOT APPLICABLE (calc) 6-22 SODIUM 137 mmol/L 135-146 POTASSIUM 4.3 mmol/L 3.5-5.3 CHLORIDE 98 mmol/L 98-110 CARBON DIOXIDE 26 mmol/L 20-32 CALCIUM 9.8 mg/dL 8.6-10.4 PROTEIN, TOTAL 7.0 g/dL 6.1-8.1 ALBUMIN 4.6 g/dL 3.6-5.1 GLOBULIN 2.4 g/dL (calc) 1.9-3.7 ALBUMIN/GLOBULIN RATIO 1.9 (calc) 1.0-2. 5 BILIRUBIN, TOTAL 0.6 mg/dL 0.2-1.2 ALKALINE PHOSPHATASE 72 U/L 37-153 AST 11 U/L 10-35 ALT 13 U/L 6-29 CBC w/MANUAL DIFF - 09/24/19 09:16 WHITE BLOOD CELL COUNT 3.7 Thousand/uL 3 .8-10.8 RED BLOOD CELL COUNT 5.09 Million/uL 3.8 0-5.10 HEMOGLOBIN 14.4 g/dL 11.7-15.5 HEMATOCRIT 43.3 % 35.0-45.0 MCV 85.1 fL 80.0-100.0 MCH 28.3 pg 27.0-33.0 MCHC 33.3 g/dL 32.0-36.0 RDW 21.0 % 11.0-15.0 PLATELET COUNT 332 Thousand/uL 140-400 MPV 10.2 fL 7.5-12.5 DIFFERENTIAL, MANUAL - 09/24/19 09:16 ABSOLUTE NEUTROPHILS 2031 cells/uL 1500- 7800 ABSOLUTE MONOCYTES 144 cells/uL 200-950 ABSOLUTE EOSINOPHILS 107 cells/uL 15-500 ABSOLUTE BASOPHILS 37 cells/uL 0-200 NEUTROPHILS 54.9 % NRG LYMPHOCYTES 37.3 % NRG MONOCYTES 3.9 % NRG EOSINOPHILS 2.9 % NRG BASOPHILS 1.0 % NRG ABSOLUTE LYMPHOCYTES 1380 cells/uL 850-3 900 PLATELET ESTIMATION ADEQUATE ADEQUATE VITAMIN B12/FOLATE, SERUM PANEL - 09:16 VITAMIN B12 155 pg/mL 200-1100 FOLATE, SERUM 13.9 ng/mL NRG Encounters ACCT No. Visit Date/Time Discharge Status Pt. Type Provider Facility Loc./Unit Complaint [id number] 07/29/2019 11:00:00 07/29/2019 23:59:5 9 [facility] Outpatient ELLEN DISLA APRN [facility] [address] [id number] 09/24/2019 09:20:00 Document Registration [id number] 08/25/2018 10:00:00 Document Registration [id number] 02/12/2017 09:40:00 Document Registration [id number] 08/24/2014 08:24:00 08/24/2014 23:59: 59 [facility] Outpatient TOSHIA POPE DO [id number] 06/22/2014 08:38:00 06/22/2014 23:59: 59 [facility] Outpatient ELLEN DISLA APRN [id number] 01/12/2014 10:12:00 01/12/2014 23:59: 59 [facility] Outpatient ELLEN DISLA APRN [id number] 10/06/2013 08:17:00 10/06/2013 23:59: 59 [facility] Outpatient NIGHAT MICHELLEELLEN [id number] 09/28/2013 10:25:00 09/28/2013 23:59: 59 [facility] Outpatient TOSHIA POPE DO [id number] 09/06/2013 13:55:00 09/06/2013 23:59: 59 [facility] Outpatient TOSHIA DOTOSHIA [id number] 07/30/2013 08:23:00 07/30/2013 23:59: 59 [facility] Outpatient POPE DOTOSHIA [id number] 07/08/2013 12:47:00 07/08/2013 23:59: 59 [facility] Outpatient POPE DOTOSHIA [id number] 06/14/2013 07:58:00 06/14/2013 23:59: 59 [facility] Outpatient NIGHAT MICHELLE ELLEN Person [id number] 06/07/2013 12:54:00 06/07/2013 23:59: 59 [facility] Outpatient TOSHIA DOTOSHIA [id number] 04/05/2013 16:56:00 04/05/2013 23:59: 59 [facility] Outpatient POPE DOTOSHIA [id number] 03/23/2013 08:38:00 03/23/2013 23:59: 59 [facility] Outpatient POPE DOTOSHIA [id number] 03/01/2013 09:26:00 03/01/2013 23:59: 59 [facility] Outpatient POPE DOTOSHIA [id number] 01/20/2013 14:35:00 01/20/2013 23:59: 59 [facility] Outpatient NIGHAT MICHELLEELLEN [id number] 08/17/2012 16:36:00 08/17/2012 23:59: 59 [facility] Outpatient NIGHAT MICHELLEELLEN [id number] 12/30/2011 12:10:00 12/30/2011 23:59: 59 [facility] Outpatient [id number] 11/19/2012 13:52:00 Document Registration [id number] 11/02/2012 17:33:00 Document Registration [id number] 10/26/2012 17:00:00 Document Registration [id number] 10/22/2012 16:09:00 Document Registration [id number] 09/18/2012 14:56:00 Document Registration [id number] 09/22/2019 08:40:00 05/13/2 020 23:59:59 C[facility] Outpatient DISLA, ELLEN Naya JO [facility] RAD Z87.81 [id number] 07/17/2019 17:16:00 020 16:39:00 DIS Inpatient FELIX KERNS DO, V [facility] 4TH PELVIC FRACTURE [id number] 06/23/2018 09:29:00 23:59:59 CLS Outpatient VIKI SAAVEDRA LEATHER SKINNER [facility] LAB E83.42 [id number] 05/26/2018 08:49:00 23:59:59 CLS Outpatient VIKI SAAVEDRA LEATHER SKINNER [facility] LAB ACUTE HYPO[place] [id number] 05/21/2018 10:01:00 23:59:59 CLS Outpatient LAKEISHA LAKE APRN [facility] RAD ASTHMA [id number] 05/21/2018 09:57:00 23:59:59 CLS Outpatient MODE SCHILLING FACC, PAZ MCGARRYP CC DS [facility] LAB E11.9 [id number] 05/11/2018 11:11:00 018 15:40:00 DIS Emergency JOSE ALSTON [facility] ER SOB;WEAKNESS [id number] 06/29/2017 16:12:00 018 19:17:00 DIS Emergency ANIYAH CORBETT MD [facility] ER HIGH BLOOD SUGA R [id number] 06/24/2017 10:55:00 018 23:59:59 CLS Outpatient MODE SCHILLING FACC, PAZ FACP CC DS [facility] RAD CHEST DISCO MFORT R07.89 [id number] 05/20/2017 07:04:00 018 23:59:59 CLS Outpatient MODE SCHILLING FACC, PAZ MCGARRYP CC DS [facility] CARD CHEST DISCO MFORT R07.89 [id number] 01/16/2017 08:53:00 017 14:55:00 DIS [facility] [id number] 01/14/2017 11:32:00 017 13:26:00 DIS Outpatient ERIC GLORIA DO [facility] PREOP UMBILICAL HERNIA [id number] 11/14/2016 06:44:00 017 10:08:00 DIS Outpatient ERIC GLORIA DO [facility] ENDO OCCULT POSITIVE STOOLS [id number] 11/11/2016 05:42:00 017 11:30:00 DIS Outpatient ERIC GLORIA DO [facility] PREOP OCCULT POSITIVE STOOLS [id number] 01/19/2016 10:23:00 016 23:59:59 CLS Outpatient YAN LARIOS DO [facility] RAD BAUER,COPD,ASTHMA [id number] 07/07/2015 10:01:00 016 23:59:59 CLS Outpatient MODE SCHILLING FACC, PAZ MCGARRYP CC DS [facility] CARD CAD,COPD,CA ROTID ARTERY NARROWING [id number] 07/04/2015 10:52:00 016 23:59:59 CLS Outpatient MODE SCHILLING FACC, PAZ DEE CC DS [facility] CARD CAD,COPD [id number] 02/23/2015 08:58:00 23:59:59 CLS Outpatient ERIC GLORIA DO [facility] RAD INCOMPLETE COLONOSCOPY [id number] 01/31/2015 11:46:00 15:00:00 DIS [facility] POS[facility]IVE [facility] S [id number] 01/26/2015 05:53:00 23:59:59 CLS Outpatient ERIC GLORIA DO [facility] PREOP HEMOCULT POSITIVE STOOL S [id number] 06/06/2014 11:37:00 23:59:59 CLS Outpatient YAN LARIOS DO [facility] RT DYPNEA ON EXERCTION, PN EUMONIA [id number] 03/29/2013 07:36:00 23:59:59 CLS Outpatient ELLEN DISLA CFNP [facility] RAD CHEST TIGHTNESS HX LUNG ABCESS [id number] 03/09/2013 06:45:00 15:00:00 DIS Outpatient MODE SCHILLING FACC, PAZ DEE CC DS [facility] CATH EXCERTIONAL DYSPNEA [id number] 10/12/2012 11:28:00 23:59:59 CLS Outpatient VIKI SAAVEDRA [facility] RAD DYSPNEA [id number] 10/12/2019 12:00:00 P EN Preadmit MODE SCHILLING FACJenn, PAZ DEE CCDS [facility]NCOPE [id number] 01/17/2015 16:25:00 Document Registration [id number] 07/28/2012 16:07:00 Document Registration
--- NOTE | 2019-10-12 11:53 | Cardiac Procedure Note-CS/ASA ---
Pre-Procedure Note Pre-Op Procedure Note H&P Reviewed The H&P was reviewed, patient examined and no changes noted. Date H&P Reviewed: Oct 12, 2019 Time H&P Reviewed: 11:40 Conscious Sedation Pre-Proced Time 11:40 ASA Score 3 For ASA 3 and 4: Consider anesthesia and medical clearance. Also, for patients with a history of failed moderate sedation consider anesthesia. Airway Lungs Heart ASA score ASA 1: a normal healthy patient ASA 2: a patient with a mild systemic disease (mid diabetes, controlled hypertension, obesity ASA 3: a patient with a severe systemic disease that limits activity (angina, COPD, prior Myocardial infarction) ASA 4: a patient with an incapacitating disease that is a constant threat to life (CHF, renal failure) ASA 5: a moribund patient not expected to survive 24 hrs. (ruptured aneurysm) ASA 6: a declared brain- patient whose organs are being harvested. For emergent operations, add the letter E after the classification Mallampati Classification Grade 2 Sedation Plan Analgesia, Amnesia, Plan communicated to team members, Discussed options with patient/fam, Discussed risks with patient/fam The patient is an appropriate candidate to undergo the planned procedure, sedation, and anesthesia. The patient immediately re-assessed prior to indication. PAZ COELLO MD FACP FAC CCDS Oct 12, 2019 11:53
[2019-10-12 12:04] VITALS: BP 140/99
--- NOTE | 2019-10-12 12:05 | NUR ---
follow up appointment made by this RN for patient: October 18 at 1000. patient verbalized understanding.
--- NOTE | 2019-10-12 12:17 | OPERATIVE REPORT ---
DATE OF SERVICE: 10/12/2019 PREOPERATIVE DIAGNOSIS: Syncope. POSTOPERATIVE DIAGNOSIS: Syncope. PROCEDURE: Implantable loop recorder implantation. The patient is a 69-year-old lady who has an occasional, brief syncope. Implantable loop recorder implantation was recommended and carried out today after having obtained an informed consent. DESCRIPTION OF PROCEDURE: [facility] The left prepectoral area was prepared and draped in the usual sterile fashion. Lidocaine 1% was used for local anesthesia. Tools provided with the [employer]onic Reveal LINQ device were used to make a pocket anterior to the fourth intercostal space into which the Medtronic Reveal LINQ recorder was placed and the incision was closed with Dermabond and Steri-Strips. She tolerated the procedure well. The serial number of the device is [id number]. Job ID: [id number] DocumentID: [id number] Dictated Date: 10/12/2019 11:49:35 [employer] Date: 10/12/2019 12:17:00 Dictated By: PAZ COELLO MD, MA, FACP, FACC,
== END 2019-10-12 12:00 ==
LOC: CATH 10:42
PROVIDERS: ATTEND Internal Medicine Cardiovascular Disease
DX: R55 Syncope and collapse (principal); I65.29 Occlusion and stenosis of unspecified carotid artery; I08.0 Rheumatic disorders of both mitral and aortic valves; I47.1 Supraventricular tachycardia; I95.9 Hypotension, unspecified; I25.10 Atherosclerotic heart disease of native coronary artery without angina pectoris; E11.51 Type 2 diabetes mellitus with diabetic peripheral angiopathy without gangrene; E78.00 Pure hypercholesterolemia, unspecified; E78.1 Pure hyperglyceridemia; E78.5 Hyperlipidemia, unspecified; J44.9 Chronic obstructive pulmonary disease, unspecified; J30.9 Allergic rhinitis, unspecified; G89.29 Other chronic pain; J96.90 Respiratory failure, unspecified, unspecified whether with hypoxia or hypercapnia; Z98.51 Tubal ligation status; Z98.890 Other specified postprocedural states; Z87.891 Personal history of nicotine dependence; Z88.2 Allergy status to sulfonamides; Z88.8 Allergy status to other drugs, medicaments and biological substances; Z79.899 Other long term (current) drug therapy; Z79.84 Long term (current) use of oral hypoglycemic drugs; Z79.82 Long term (current) use of aspirin; Z80.9 Family history of malignant neoplasm, unspecified; Z82.3 Family history of stroke
CPT/HCPCS: 33285

== ENCOUNTER → 2019-11-17 | Outpatient (CLI) | payer MEDICARE, MEDICAID ==
[~2019-11-17] MED LIST changes: -LIDOCAINE 1% INJ 20 ML 20 ML VIAL ONE
== END ==
LOC: CARD 12:33
PROVIDERS: ATTEND Internal Medicine Cardiovascular Disease
DX: I35.1 Nonrheumatic aortic (valve) insufficiency (principal); I95.9 Hypotension, unspecified; I25.10 Atherosclerotic heart disease of native coronary artery without angina pectoris; I65.29 Occlusion and stenosis of unspecified carotid artery; R55 Syncope and collapse; R42 Dizziness and giddiness; Z86.2 Personal history of diseases of the blood and blood-forming organs and certain disorders involving the immune mechanism
CPT/HCPCS: 93306

== ENCOUNTER 2020-04-19 08:44 | Emergency (ER) | payer MEDICARE, MEDICAID ==
[~2020-04-19] VITALS: Ht 162 cm; Wt 58.0 kg
[~2020-04-19 08:44] MED LIST changes: +ASPI-1238 PO; -ASPI-983 PO; -CETI10TA21 PO; +CETI10TA49 PO
[2020-04-19] MEDS ORDERED: fentaNYL INJECTION 100 MCG/2 ML AMP IVP ONE (09:00)
--- NOTE | 2020-04-19 09:04 | ED Lower Extremity ---
General Chief Complaint: Trauma-Non Activation Stated Complaint: R HIP AND KNEE PAIN Source: patient Exam Limitations: no limitations History of Present Illness Date Seen by Provider: Apr 19, 2020 Time Seen by Provider: 08:50 Initial Comments Patient is a 69-year-old female who presents to the emergency department today with a chief complaint of right hip pain and right wrist pain after a fall last night. Patient states that she got up last night around midnight to get herself to the bathroom and slipped on the floor secondary to wearing slick socks. Patient states she was unable to get up on her own and had to have her help her back to bed. Patient states that she was very uncomfortable all night long and had to sleep on her back. This morning patient could not get out of bed secondary to pain in her right hip. She also is complaining of pain over the dorsum of the right wrist. She denies any numbness, tingling, weakness. She is never injured this hip for this wrist before. She denies any recent illnesses. Patient has not had anything to eat or drink yet this morning. She is a diabetic. All other review of systems reviewed and negative except as stated above. Onset: other (Last night around midnight) Pain/Injury Location: right hip Method of Injury: fell Modifying Factors: Improves With Immobilization Allergies and Home Medications Allergies Coded Allergies: Sulfa (Sulfonamide Antibiotics) (Verified Allergy, Intermediate, 01/14/17) Home Medications Acetaminophen 500 Mg Tablet, 1,000 MG PO Q8H PRN for PAIN-MILD (1-4), (Reported) Albuterol Sulfate 18 Gm Hfa.aer.ad, 2 PUFF PO Q4H PRN for SHORTNESS OF BREATH, (Reported) Aspirin 81 Mg Tablet.dr, 81 MG PO DAILY, (Reported) Budesonide/Formoterol Fumarate 10.2 Gm Hfa.aer.ad, 2 PUFF PO BID, (Reported) LAST FILLED 05-24-2019 #1 BOX/ 30 DAY SUPPLY Hydrocodone/Acetaminophen 1 Each Tablet, 1 TAB PO Q6H PRN for PAIN-MODERATE Prescribed by: FELIX KERNS on 07/20/19 1017 Magnesium Oxide 400 Mg Tablet, 400 MG PO BID, (Reported) LAST FILLED ON 05-24-2019 #60/30 DAY SUPPLY Metformin HCl 500 Mg Tablet, 1,250 MG PO DAILY, (Reported) TAKES 2 & (500MG) TABS AM Metformin HCl 500 Mg Tablet, 750 MG PO HS, (Reported) TAKES 1 & (500MG) TABS PM Pantoprazole Sodium 40 Mg Tablet.dr, 40 MG PO BID Prescribed by: FELIX KERNS on 07/20/19 1019 Potassium Chloride 10 Meq Tablet.er, 10 MEQ PO 1800, (Reported) TAKES WITH DINNER Pravastatin Sodium 20 Mg Tablet, 20 MG PO HS, (Reported) Sennosides/Docusate Sodium 1 Each Tablet, 1 EACH PO BID Prescribed by: FELIX KERNS on 07/20/19 1018 Sucralfate 1 Gm Tablet, 1 GM PO AC Prescribed by: FELIX KERNS on 07/20/19 1019 Zafirlukast 20 Mg Tablet, 20 MG PO BID, (Reported) Patient Home Medication List Home Medication List Reviewed: Yes Review of Systems Constitutional: no symptoms reported, see HPI EENTM: no symptoms reported Respiratory: no symptoms reported Cardiovascular: no symptoms reported Gastrointestinal: no symptoms reported Genitourinary: no symptoms reported : No Musculoskeletal: joint pain (Right hip, right wrist) Skin: no symptoms reported All Other Systems Reviewed Negative Unless Noted: Yes Past Kaukbyw-Izrakl-Smmupd Hx Patient Social History Recent Hopitalizations: No Immunizations Up To Date Tetanus Booster (TDap): Unknown Date of Pneumonia Vaccine: Jul 14, 2017 Date of Influenza Vaccine: Mar 08, 2019 Seasonal Allergies Seasonal Allergies: Yes Past Medical History Surgeries: Yes (RIGHT THORACOTOMY, HERNIA) Tubal Ligation Respiratory: Yes (HX OF LUNG ABCESS) Asthma, Pneumonia, Chronic Bronchitis, COPD Cardiac: Yes High Cholesterol Neurological: Yes Headaches /Migraines Reproductive Disorders: No 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 Sexually Transmitted Disease: No HIV/AIDS: No Genitourinary: Yes UTI-Chronic Gastrointestinal: Yes Gastroesophageal Reflux, Chronic Diarrhea 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 0.2oz. 58.710826ia; 23.24 BMI Method:Stated General Appearance: WD/WN, no apparent distress HEENT: PERRL/EOMI Cardiovascular: regular rate, rhythm Respiratory: lungs clear, normal breath sounds, no respiratory distress, no accessory muscle use Gastrointestinal: normal bowel sounds, non tender Hips: right hip bone tenderness, right hip deformity, right hip limited range of motion, right hip pain, right hip soft tissue tenderness Legs: left leg non-tender, left leg normal inspection, left leg normal range of motion, left leg no evidence of injury Knees: left knee non-tender, left knee normal inspection, left knee normal range of motion, left knee no evidence of injury; right knee other Ankles: bilateral ankle non-tender, bilateral ankle normal inspection, bilateral ankle normal range of motion, bilateral ankle no evidence of injury Feet: bilateral foot non-tender, bilateral foot normal inspection, bilateral foot normal range of motion, bilateral foot no evidence of injury Neurologic/Tendon: normal sensation, normal motor functions Neurologic/Psychiatric: machine driller II-XII nml as tested, no motor/sensory deficits, alert, normal mood/affect, oriented x 3 Skin: normal color, warm/dry Patient has swelling around the dorsum of the right wrist. Limited range of motion as far as flexion. Patient has intact neurovascular function to the right hand. Progress/Results/Core Measures Results/Orders Lab Results Laboratory Tests Test 04/19/20 08:50 04/19/20 15:56 Range/Units White Blood Count 8.9 4.3-11.0 10^3/uL Red Blood Count 3.95 3.80-5.11 10^6/uL Hemoglobin 11.3 L 11.5-16.0 g/dL Hematocrit 37 35-52 % Mean Corpuscular Volume 93 80-99 fL Mean Corpuscular Hemoglobin 29 25-34 pg Mean Corpuscular Hemoglobin Concent 31 L 32-36 g/dL Red Cell Distribution Width 13.0 10.0-14.5 % Platelet Count 309 130-400 10^3/uL Mean Platelet Volume 10.4 9.0-12.2 fL Immature Granulocyte % (Auto) 0 % Neutrophils (%) (Auto) 83 H 42-75 % Lymphocytes (%) (Auto) 9 L 12-44 % Monocytes (%) (Auto) 7 0-12 % Eosinophils (%) (Auto) 0 0-10 % Basophils (%) (Auto) 0 0-10 % Neutrophils # (Auto) 7.4 1.8-7.8 10^3/uL Lymphocytes # (Auto) 0.8 L 1.0-4.0 10^3/uL Monocytes # (Auto) 0.6 0.0-1.0 10^3/uL Eosinophils # (Auto) 0.0 0.0-0.3 10^3/uL Basophils # (Auto) 0.0 0.0-0.1 10^3/uL Immature Granulocyte # (Auto) 0.0 0.0-0.1 10^3/uL Sodium Level 130 L 135-145 MMOL/L Potassium Level 4.3 3.6-5.0 MMOL/L Chloride Level 98 98-107 MMOL/L Carbon Dioxide Level 21 21-32 MMOL/L Anion Gap 11 5-14 MMOL/L Blood Urea Nitrogen 11 7-18 MG/DL Creatinine 0.73 0.60-1.30 MG/DL Estimat Glomerular Filtration Rate > 60 BUN/Creatinine Ratio 15 Glucose Level 136 H 70-105 MG/DL Calcium Level 8.1 L 8.5-10.1 MG/DL Glucometer 134 H 70-110 MG/DL My Orders Orders - WU COLIN MD Cbc With Automated Diff (04/19/20 08:58) Basic Metabolic Panel (04/19/20 08:58) Ekg Tracing (04/19/20 08:58) Chest 1 View, Ap/Pa Only (04/19/20 08:58) Pelvis With Right Hip 2-3views (04/19/20 08:58) Wrist, Right, 3 Views Or More (04/19/20 08:58) Fentanyl Injection (Sublimaze Injection (04/19/20 09:00) Fentanyl Injection (Sublimaze Injection (04/19/20 12:45) Fentanyl Injection (Sublimaze Injection (04/19/20 12:46) General/Regular (04/19/20 Lunch) Medications Given in ED Vital Signs/I&O 04/19/20 04/19/20 08:44 16:35 Temp 36.0 Pulse 70 76 Resp 16 16 B/P (MAP) 129/78 (95) 120/83 Pulse Ox 93 99 O2 Delivery Room Air Nasal Cannula O2 Flow Rate 2.00 Progress Progress Note : Time: 11:29 Progress Note Discussed plan of care with the patient's , he is comfortable with the transfer to [facility] for operative repair of her hip fracture and fur ther evaluation of her right radius fracture. Discussed at 1125 with [facility] waiting on the doctor to call me back. Patient was placed in a sugar tong splint to the right upper extremity. Remains neurovascularly intact. Departure Communication (Admissions) Time/Spoke to Consulting Phy: 11:[address] Henao on for orthopedics, this patient's care exceeds Dr. Henao's capabilities at this facility Impression Primary Impression: Closed right hip fracture Qualified Codes: S72.001A - Fracture of unspecified part of neck of right femur, initial encounter for closed fracture Additional Impression: Closed fracture of right distal radius Qualified Codes: S52.501A - Unspecified fracture of the lower end of right radius, initial encounter for closed fracture Disposition: 02 XFER SHT-TRM HOSP Condition: Stable Transfer Transfer Reason: Exceeds level of care Time Spoke to Accepting Phy: 12:45 Transfer Progress Notes discussed with Dr. Moralez at [facility] who accepts the patient for transfer to their hospital Transfer Facility: [facility] Method of Transfer: EMS Departure-Patient Inst. Referrals: TOSHIA POPE DO (PCP) Primary Care Physician ELLEN DISLA (Family) Primary Care Physician WU COLIN MD Apr 19, 2020 09:04
--- NOTE | 2020-04-19 09:18 | NUR ---
TALKED WITH PT'S ET GAVE HIM A UPDATE.
--- NOTE | 2020-04-19 09:22 | NUR ---
TALKED WITH LAB CONCERNING BLOOD NOT BEING RAN. THEY STATE THEY HAVE FOUND IT.
[2020-04-19 09:33] LABS: BASOPHILS % (AUTO) 0 % (0-10); EOSINOPHILS % (AUTO) 0 % (0-10); HEMATOCRIT 37 % (35-52); HEMOGLOBIN 11.3 g/dL (11.5-16.0); LYMPHOCYTES # (AUTO) 0.8 10^3/uL (1.0-4.0); LYMPHOCYTES % (AUTO) 9 % (12-44); MEAN CORPUSCULAR HEMOGLOBIN 29 pg (25-34); MEAN CORPUSCULAR HGB CONC 31 g/dL (32-36); MEAN CORPUSCULAR VOLUME 93 fL (80-99); MEAN PLATELET VOLUME 10.4 fL (9.0-12.2); MONOCYTES # (AUTO) 0.6 10^3/uL (0.0-1.0); MONOCYTES % (AUTO) 7 % (0-12); NEUTROPHILS # (AUTO) 7.4 10^3/uL (1.8-7.8); NEUTROPHILS % (AUTO) 83 % (42-75); PLATELET COUNT 309 10^3/uL (130-400); WHITE BLOOD COUNT 8.9 10^3/uL (4.3-11.0)
[2020-04-19 09:40] LABS: CHLORIDE 98 MMOL/L (98-107); POTASSIUM 4.3 MMOL/L (3.6-5.0); SODIUM 130 MMOL/L (135-145)
[2020-04-19 09:41] LABS: CALCIUM 8.1 MG/DL (8.5-10.1); GLUCOSE 136 MG/DL (70-105)
[2020-04-19 09:43] LABS: CARBON DIOXIDE 21 MMOL/L (21-32)
[2020-04-19 09:45] LABS: CREATININE SERUM 0.73 MG/DL (0.60-1.30); GFR ESTIMATED > 60
[2020-04-19 09:46] LABS: BUN/CREATININE RATIO 15
--- NOTE | 2020-04-19 09:49 | NUR ---
IN TALKING WITH THE PT AT THIS TIME.
--- NOTE | 2020-04-19 09:50 | Diagnostic Imaging Report ---
INDICATION: Fall. COMPARISON: 07/15/2019 FINDINGS: Single frontal radiographic view of the chest was obtained and demonstrates normal cardiac silhouette and pulmonary vasculature. Rounded opacity projected over the cardiac silhouette consistent with large hiatal hernia seen on previous study. Lungs are clear. There is no focal consolidation, large effusion, nor pneumothorax. Osseous structures show no gross acute abnormalities. IMPRESSION: 1. No acute cardiopulmonary process. 2. Large hiatal hernia. Dictated by: Dictated on workstation # [id number]
--- NOTE | 2020-04-19 09:52 | Diagnostic Imaging Report ---
INDICATION: Fall. Right hip pain. COMPARISON: 07/15/2019 FINDINGS: Frontal radiograph view of the pelvis and two dedicated radiographic views of the right hip were obtained. There is acute fracture through the neck of the proximal right femur. There is mild proximal subluxation of the distal fracture fragment. Femoral acetabular joint space remains intact. Nonacute healing fracture of the inferior pubic ramus on the right is again identified. Pubic symphysis is within normal limits. SI joints are symmetric. No unexpected radiopaque foreign bodies are seen. IMPRESSION: 1. Acute fracture proximal right femur as described above. Dictated by: Dictated on workstation # [id number]
--- NOTE | 2020-04-19 09:52 | Diagnostic Imaging Report ---
INDICATION: Fall with right wrist injury. TIME OF EXAM: 9:35 AM. TECHNIQUE: Three views of the right wrist were obtained. FINDINGS: There is a slightly impacted fracture of the distal radius. No significant displacement or angulation is seen. The distal ulna is intact. The carpus and metacarpals are intact. There is generalized demineralization present. IMPRESSION: Slightly impacted distal radius fracture. No significant displacement is seen. The report was faxed to Valerio in the ER by alia@12:14 PM. Dictated by: Dictated on workstation # [id number]
--- NOTE | 2020-04-19 10:18 | NUR ---
DR ATTEMPTED TO CALL PTS BUT HE DID NOT ANSWER.
--- NOTE | 2020-04-19 10:38 | NUR ---
HAS ATTEMPTED TO CALL THE TWICE AND I HAVE ONCE WITH NO ANSWER. I ALSO CHECKED THE PARKING LOT AND HE IS NOT THERE.
--- NOTE | 2020-04-19 10:42 | NUR ---
TALKED WITH PT'S FUTURE DAUGHTER IN [place] VIA PHONE WITH THE PT'S PERMISSION SHE IS GOING TO TRY AND FIND THE . NOTIFIED.
--- NOTE | 2020-04-19 10:45 | NUR ---
ASSESSED SPLINT THAT WAS PLACED. CMS INTACT AT THIS TIME.
--- NOTE | 2020-04-19 12:11 | NUR ---
DR NOTIFIED PT WOULD LIKE SOMETHING FOR PAIN.
[2020-04-19] MEDS ORDERED: fentaNYL INJECTION 100 MCG/2 ML AMP ONE (12:46)
[2020-04-19] MEDS: fentaNYL INJECTION 100 MCG/2 ML AMP IVP PRN ×3 (12:49→16:33)
--- NOTE | 2020-04-19 12:55 | NUR ---
PT PULSE OX DROPPED AFTER FENTENYL GIVEN. OXYGEN APPLIED AT 2LNC. NOTIFIED.
--- NOTE | 2020-04-19 14:01 | NUR ---
RESTING IN BED WITHOUT PROBLEMS AT THIS TIME..
--- NOTE | 2020-04-19 14:36 | NUR ---
PT FAMILY UPDATED THAT SHE IS STILL IN OUR ER.
--- NOTE | 2020-04-19 15:54 | NUR ---
ATTEMPT TO CALL REPORT ET NURSE WILL CALL BACK ET ZACHARY STATES WE CAN GO AHEAD AND SEND HER.
[2020-04-19 16:35] VITALS: BP 120/83
--- NOTE | 2020-04-19 16:50 | NUR ---
ATTEMPT TO CALL PTS'S TO LET HIM KNOW SHE HAS BEEN TRANSFERRED ET HE DID NOT ANSWER.
== END 2020-04-19 16:35 | disposition short-term general hospital (02) ==
LOC: EDUNIT# 08:44 → ER 08:46
DX: S72.091A Other fracture of head and neck of right femur, initial encounter for closed fracture (principal); S52.591A Other fractures of lower end of right radius, initial encounter for closed fracture; K21.9 Gastro-esophageal reflux disease without esophagitis; J44.9 Chronic obstructive pulmonary disease, unspecified; E78.00 Pure hypercholesterolemia, unspecified; E11.9 Type 2 diabetes mellitus without complications; Z83.3 Family history of diabetes mellitus; Z88.2 Allergy status to sulfonamides; Z79.82 Long term (current) use of aspirin; Z79.84 Long term (current) use of oral hypoglycemic drugs; W01.0XXA Fall on same level from slipping, tripping and stumbling without subsequent striking against object, initial encounter
CPT/HCPCS: 29125; 36415; 51702; 71045; 73110; 80048; 82962; 85025; 93005

== ENCOUNTER 2021-02-26 12:31 | Outpatient (CLI) | payer MEDICAID, MEDICARE | END 2021-02-26 13:01 | LOC: SLEEP 12:31 | PROVIDERS: ATTEND Nurse Practitioner Family | DX: G47.30 Sleep apnea, unspecified (principal); G47.50 Parasomnia, unspecified; G47.10 Hypersomnia, unspecified | CPT/HCPCS: G0399 ==

== ENCOUNTER → 2021-02-26 | Outpatient (CLI) | payer MEDICAID, MEDICARE ==
[~2021-02-26] MED LIST changes: -OMEP40CA27 PO; +OMEP40CA6 PO
--- NOTE | 2021-02-26 13:39 | Diagnostic Imaging Report ---
PROCEDURE: CT chest without contrast. TECHNIQUE: Multiple contiguous axial images were obtained through the chest without the use of intravenous contrast. Auto Exposure Controls were utilized during the CT exam to meet ALARA standards for radiation dose reduction. INDICATION: COPD. Difficulty breathing. COMPARISON: Comparison is made with a prior study from 05/21/2018. FINDINGS: There is obstructive airway disease with no mass or infiltrate seen. There is no bronchiectasis. There is no effusion or pneumothorax. There is no mediastinal adenopathy. There is a large hiatal hernia that appears to contain the entire stomach which is similar to the prior CT. There is no acute bony abnormality. IMPRESSION: Large hiatal hernia. COPD. No acute abnormality is seen. Dictated by: Dictated on workstation # [id number]
== END ==
LOC: RAD 13:15
PROVIDERS: ATTEND Nurse Practitioner Family
DX: G47.33 Obstructive sleep apnea (adult) (pediatric) (principal); J44.9 Chronic obstructive pulmonary disease, unspecified; K44.9 Diaphragmatic hernia without obstruction or gangrene
CPT/HCPCS: 71250

== ENCOUNTER 2021-04-27 05:26 | Outpatient (RCR) | payer MEDICARE ==
[~2021-04-27] VITALS: Ht 162.6 cm; Wt 64.0 kg
[~2021-04-27 05:26] MED LIST changes: +APIX2.5T PO; +BENZ100C18 PO; +BUDE10.7 IH; +CITA20TA9 PO; +DILT-27 PO; +FERR-84 PO
== END 2021-04-27 11:49 | disposition home or self-care (01) ==
LOC: PREOP 05:26
PROVIDERS: ATTEND Surgery
DX: Z01.812 Encounter for preprocedural laboratory examination (principal); K21.9 Gastro-esophageal reflux disease without esophagitis; K92.1 Melena; Z20.822 Contact with and (suspected) exposure to COVID-19
CPT/HCPCS: 87635

== ENCOUNTER 2021-05-01 11:52 | Day surgery (SDC) | payer MEDICARE ==
[2021-05-01] VITALS (7 sets, daily range): BP systolic 115–121; BP diastolic 65–86
[~2021-05-01] VITALS: Ht 162.6 cm; Wt 64.0 kg
[2021-05-01] MEDS ORDERED: LACTATED RINGERS 1,000 ML IV ONE (12:08)
[2021-05-01] MEDS ORDERED: LACTATED RINGERS 1,000 ML IV STA (12:12)
[2021-05-01] MEDS ORDERED: HURRICAINE EXT TUBE (BENZOCAINE) XX PRN (12:15)
--- NOTE | 2021-05-01 13:03 | Progress Note-Pre Operative ---
Pre-Operative Progress Note H&P Reviewed The H&P was reviewed, patient examined and no changes noted. Date Seen by Provider: May 01, 2021 Time Seen by Provider: 13:03 Date H&P Reviewed: May 01, 2021 Time H&P Reviewed: 13:03 Pre-Operative Diagnosis: melena gerd iron def anemia ERIC GLORIA DO May 01, 2021 13:03
[2021-05-01] MEDS ORDERED: PROPOFOL INJECTION 50 ML IV ONE (13:48)
[2021-05-01] MEDS ORDERED: MIDAZOLAM 2 MG/2 ML (VERSED) VIAL ONE (13:48)
--- NOTE | 2021-05-01 14:30 | Discharge Inst-Simple/Standard ---
Discharge Inst-Standard Patient Instructions/Follow Up Plan of Care/Instructions/FU: Lupe in 2 weeks Activity as Tolerated: Yes Discharge Diet: Regular Diet RENZO ZUÑIGA GROCERY CHECKER May 01, 2021 14:30
[2021-05-01] MEDS ORDERED: SUCR1TAB36 PO (14:31)
--- NOTE | 2021-05-01 14:32 | Progress Note-Post Operative ---
Post-Operative Progess Note Surgeon (s)/International Account Executive (s) Surgeon ERIC GLORIA DO International Account Executive: na Pre-Operative Diagnosis melena gerd iron def anemia Post-Operative Diagnosis large hiatal hernia, normal colon Procedure & Operative Findings Date of Procedure 05/01/21 Procedure Performed/Findings esophagoscopy and colonoscopy Anesthesia Type per lead ruby on rails developer Estimated Blood Loss Estimated blood loss (mL): scant Specimens/Packing Specimens Removed na ERIC GLORIA DO May 01, 2021 14:32
--- NOTE | 2021-05-01 14:55 | Anesthesia-General Post-Op ---
MAC Patient Condition Mental Status/LOC: Same as Preop Cardiovascular: Satisfactory Nausea/Vomiting: Absent Respiratory: Satisfactory Pain: Controlled Complications: Absent Post Op Complications Complications None Follow Up Care/Instructions Patient Instructions None needed. Anesthesiology Discharge Order Discharge Order Patient is doing well, no complaints, stable vital signs, no apparent adverse anesthesia problems. No complications reported per nursing. CARLA OCASIO CRNA May 01, 2021 14:55
--- NOTE | 2021-05-01 19:04 | OPERATIVE REPORT ---
DATE OF SERVICE: 05/01/2021 PREOPERATIVE DIAGNOSES: Melena, gastroesophageal reflux disease, iron deficiency anemia. POSTOPERATIVE DIAGNOSES: Large hiatal hernia, normal colon. PROCEDURE: Esophagoscopy and colonoscopy. SURGEON: Eric Andrade DO ANESTHESIA: Per NEEDLE PUNCH MACHINE OPERATOR HELPER. ESTIMATED BLOOD LOSS: Scant. COMPLICATIONS: None. INDICATIONS: The patient is a 70-year-old female with melena, GERD, iron deficiency anemia. She understands risks and benefits of procedure and wishes to proceed. Consent was signed in the chart. DESCRIPTION OF PROCEDURE: The patient was taken to the endoscopy suite, placed in left lateral recumbent position. Timeout was performed. Scope was inserted in mouth, down the esophagus and into the first portion of the to the GE junction. The scope was unable to be advanced. The patient was repositioned and scope was then continued to be tried to be advanced without success. There was some irritation of the GE junction. The scope was then continued to be retracted and inserted and again unable to be advanced through the stomach due to there being such a large hiatal hernia. No pathology was able to be visualized within the stomach. At the GE junction, some irritation and significant redundancy, but unable to completely visualize all mucosal surfaces, but there does appear to be some irritation present with just some scant bleeding. Scope was then slowly retracted back until completely removed, noting no other pathology. Digital rectal exam was performed. No palpable polyps, masses or ulcerations. Scope was inserted in the rectum and advanced all the way to cecum with minimal difficulty. Prep was adequate with irrigation and suction. No polyps, masses or ulcerations visualized within the cecum, ascending, transverse, descending and sigmoid colon. Once in the rectum, scope was retroflexed noting no other pathology. Scope was returned to its normal position, slowly withdrawn until completely removed. The patient tolerated procedure well without any complications, taken to recovery room in stable condition. RECOMMENDATIONS: The patient likely with upper GI source of bleeding the patient on Protonix. We will add Carafate 1 gram four times a day. We will get a barium swallow to further evaluate on an outpatient basis. The patient will follow up in the office in 2 weeks. Any issues before that be seen at that time. The patient will need repeat colonoscopy in 10 years unless family history of colon cancer, which would then be 5 years and also evaluating age with benefits and risks. Job ID: [id number] DocumentID: [id number] Dictated Date: 05/01/2021 14:35:52 Computer Aide Date: 05/01/2021 19:04:30 Dictated By: ERIC ANDRADE DO
== END 2021-05-01 15:33 | disposition home or self-care (01) ==
LOC: ENDO 11:52
PROVIDERS: ATTEND Surgery
DX: K92.1 Melena (principal); K21.00 Gastro-esophageal reflux disease with esophagitis, without bleeding; K44.9 Diaphragmatic hernia without obstruction or gangrene; D50.0 Iron deficiency anemia secondary to blood loss (chronic); Z79.899 Other long term (current) drug therapy; Z79.01 Long term (current) use of anticoagulants; Z79.84 Long term (current) use of oral hypoglycemic drugs; E11.9 Type 2 diabetes mellitus without complications; J44.9 Chronic obstructive pulmonary disease, unspecified; Z79.891 Long term (current) use of opiate analgesic; Z87.891 Personal history of nicotine dependence; Z98.890 Other specified postprocedural states

== ENCOUNTER → 2021-10-30 | Outpatient (CLI) | payer MEDICARE ==
[~2021-10-30] MED LIST changes: +REGADENOSON 0.4 MG/5 ML SYR (LEXISCAN) IV ONE
[2021-10-30] MEDS: CATHETER FLUSH 10 ML SYR IVP PRN ×2 (07:23→09:06)
[2021-10-30 09:05] VITALS: BP 140/89
--- NOTE | 2021-10-31 14:53 | STRESS TEST ---
DATE OF SERVICE: 10/30/2021 RESTING AND POST REGADENOSON TECHNETIUM-99M TETROFOSMIN SPECT CT IMAGING ORDERING PHYSICIAN: Dr. Orantes. PRIMARY PHYSICIAN: Dr. Mccracken. OTHER PHYSICIAN: SANDRO Villafana. CLINICAL DIAGNOSIS: Fatigue. Baseline images were carried out after injection of 10.77 mCi of technetium-99m Tetrofosmin. This was followed by 0.4 mg regadenoson and 32.4 mCi of technetium-99m Tetrofosmin for stress imaging. The electrocardiogram showed sinus rhythm at baseline. There was subtle nonspecific ST abnormality that did not change with the regadenoson infusion. The patient tolerated the procedure well. Review of images at rest and following stress does not indicate any distinct perfusion defects consistent with significant myocardial ischemia or infarction. Gated images show normal global left ventricular systolic function with a calculated ejection fraction of 65%. CONCLUSIONS: 1. No evidence of any significant myocardial ischemia or infarction on this study. 2. Normal regional wall motion. 3. Normal global left ventricular systolic function with a calculated ejection fraction of 65%. Job ID: [id number] DocumentID: [id number] Dictated Date: 10/31/2021 09:26:19 Publicity Manager Date: 10/31/2021 14:51:54 Dictated By: PAZ ORANTES MD, MA, FACP, FACC,
== END ==
LOC: CARD 08:30
PROVIDERS: ATTEND Internal Medicine Cardiovascular Disease
DX: R53.83 Other fatigue (principal)
CPT/HCPCS: 78452; 93017; A9502

== ENCOUNTER → 2023-04-17 | Outpatient (CLI) | payer MEDICARE ==
[~2023-04-17] MED LIST changes: +MONT-47 PO; -MONT10TA21 PO; +POTA-185 PO; -POTA10TA PO; -REGADENOSON 0.4 MG/5 ML SYR (LEXISCAN) IV ONE; +RT-ALBUTEROL SULF 2.5 MG/3 ML PRE-MIX VIAL INH ONE; +ZAFI20TA18 PO; -ZFR20T PO
== END ==
LOC: RT 12:05
PROVIDERS: ATTEND Nurse Practitioner Family
DX: J44.9 Chronic obstructive pulmonary disease, unspecified (principal)
CPT/HCPCS: 94060; 94726; 94729